=== PATIENT | female | born 1950 | race Caucasian/White ===

== ENCOUNTER → 2017-10-05 08:44 | Outpatient (CLI) | payer MEDICARE, OTHER, SELFPAY ==
[2017-10-05 10:14] LABS: AST(SGOT) 23 U/L (15-37); Alanine Aminotransfer ALT/SGPT 27 U/L (13-56); Albumin, Serum 3.9 g/dL (3.2-5.0); Alkaline Phosphatase 92 U/L (45-117); Bilirubin, Direct 0.17 mg/dL (0.00-0.30); Cholesterol 143 mg/dL (200); Globulin 3.2 g/dL (2.2-4.2); High Density Lipoprotein 54 mg/dL; Protein, Total 7.1 g/dL (6.4-8.2); Triglycerides 122 mg/dL; Very Low Density Lipoprotein 24 mg/dL (5-40)
== END ==
PROVIDERS: Family Provider Family Medicine; PCP Family Medicine; Visit Provider Physician Assistant Medical
DX: E78.5 Hyperlipidemia, unspecified (principal); Z79.899 Other long term (current) drug therapy
CPT/HCPCS: 36415; 80061; 80076

== ENCOUNTER → 2019-09-18 10:21 | Outpatient (CLI) | payer MEDICARE, OTHER, SELFPAY ==
[2019-07-13 14:50] VITALS: BMI 23.9
--- NOTE | 2019-09-18 10:22 | ECHOD_ITS ---
Reason For Study: MVP Procedure This was a 2D Doppler, Color Flow transthoracic echocardiogram. Attempted to do a bubble study, two nurses were unable to place an IV. After five attempts we all agreed no more attempts would be made. Exam performed in department. Left Ventricle Normal LV size. Left ventricular systolic function is normal. The estimated ejection fraction is 65 %. Diastolic function is indeterminate. No regional wall motion abnormalities noted. Right Ventricle Normal RV size. Normal systolic function. Atria Normal left atrium. Normal right atrium. No doppler evidence for ASD. Mitral Valve There is no mitral annular calcification. Mild mitral valve prolapse. Trivial mitral valve insufficiency. Tricuspid Valve Normal tricuspid valve. Mild tricuspid valve insufficiency. Right ventricular systolic pressure estimated to be 18 mmHg. Aortic Valve Trisinus/trileaflet aortic valve. Normal aortic valve. Pulmonic Valve The pulmonic valve is not well visualized. Great Vessels The aortic root is not well visualized. Pericardium/Pleural No pericardial effusion. MMode/2D Measurements & Calculations LVIDd: 3.8 cm IVSd: 0.86 cm LA dimension: 2.6 cm LVIDs: 2.1 cm LVPWd: 1.0 cm RVDd: 3.2 cm FS: 43.8 % LAV(MOD-bp): 28.8 ml LA A4 area: 11.3 cm2 RA A4 area: 11.3 cm2 LAV(MOD-bp) Indexed: 15.3 ml/m2 LAV(MOD-sp2): 31.1 ml LAV(MOD-sp4): 24.4 ml Time Measurements MV dec time: 0.29 sec Doppler Measurements & Calculations MV E max girma: 54.7 cm/sec Lat Peak E' Girma: 4.0 cm/sec Med Peak E' Girma: 4.9 cm/sec MV A max girma: 69.1 cm/sec E/E' lat: 13.7 E/E' med: 11.2 MV E/A: 0.79 MV V2 max: 73.2 cm/sec MV P1/2t max girma: 69.3 cm/sec Ao V2 max: 103.6 cm/sec MV max P.1 mmHg MV P1/2t: 104.8 msec Ao max P.3 mmHg MV V2 mean: 38.8 cm/sec MV dec slope: 193.8 cm/sec2 MV mean P.72 mmHg MVA(P1/2t): 2.1 cm2 MV V2 VTI: 28.3 cm LV V1 max: 88.3 cm/sec PA V2 max: 60.8 cm/sec TR max girma: 195.5 cm/sec LV V1 max P.1 mmHg TR max P.3 mmHg Interpretation Summary Left ventricular systolic function is normal. The estimated ejection fraction is 65 %. Mild mitral valve prolapse. Trivial mitral valve insufficiency. Mild tricuspid valve insufficiency. Right ventricular systolic pressure estimated to be 18 mmHg. Diastolic function is indeterminate. Ordering Physician: Dimitri Da Silva Referring Physician: LUNA COPE Performed By: Jason Mosher RCS
== END ==
PROVIDERS: PCP Family Medicine; Referring Provider Internal Medicine Cardiovascular Disease; Visit Provider Internal Medicine Cardiovascular Disease
DX: I34.1 Nonrheumatic mitral (valve) prolapse (principal)
CPT/HCPCS: 93306; A4216

== ENCOUNTER → 2019-11-27 08:02 | Outpatient (CLI) | payer MEDICARE, OTHER, SELFPAY ==
[2019-07-13 14:50] VITALS: BMI 23.9
[2019-11-27 09:50] LABS: AST(SGOT) 15 U/L (15-37); Alanine Aminotransfer ALT/SGPT 26 U/L (13-56); Albumin, Serum 3.8 g/dL (3.2-5.0); Alkaline Phosphatase 94 U/L (45-117); Bilirubin, Direct 0.17 mg/dL (0.00-0.30); Cholesterol 141 mg/dL (200); Globulin 3.3 g/dL (2.2-4.2); High Density Lipoprotein 48 mg/dL; Protein, Total 7.1 g/dL (6.4-8.2); Triglycerides 178 mg/dL; Very Low Density Lipoprotein 36 mg/dL (5-40)
== END ==
PROVIDERS: PCP Family Medicine; Referring Provider Internal Medicine Cardiovascular Disease; Visit Provider Internal Medicine Cardiovascular Disease
DX: E78.00 Pure hypercholesterolemia, unspecified (principal)
CPT/HCPCS: 36415; 80061; 80076

== ENCOUNTER → 2020-12-06 09:06 | Outpatient (CLI) | payer MEDICARE, OTHER, SELFPAY ==
[2020-12-06 10:07] LABS: AST(SGOT) 23 U/L (15-37); Alanine Aminotransfer ALT/SGPT 30 U/L (13-56); Albumin, Serum 3.7 g/dL (3.2-5.0); Alkaline Phosphatase 103 U/L (45-117); Bilirubin, Direct 0.13 mg/dL (0.00-0.30); Cholesterol 154 mg/dL (200); Globulin 3.6 g/dL (2.2-4.2); High Density Lipoprotein 54 mg/dL; Protein, Total 7.3 g/dL (6.4-8.2); Triglycerides 146 mg/dL; Very Low Density Lipoprotein 29 mg/dL (5-40)
== END ==
PROVIDERS: PCP Family Medicine; Referring Provider Internal Medicine Cardiovascular Disease; Visit Provider Internal Medicine Cardiovascular Disease
DX: E78.00 Pure hypercholesterolemia, unspecified (principal)
CPT/HCPCS: 36415; 80061; 80076

== ENCOUNTER 2020-12-13 14:04 | Emergency (ER) | payer MEDICARE, OTHER, SELFPAY ==
[2020-12-13 14:04] VITALS: BP 136/74; PULSE 80; RESP 16; TEMP 37.2; O2SAT 98; BMI 24.3
[2020-12-13 14:38] LABS: Absolute Lymphocyte Count 2.11 X10^3/uL (0.83-4.51); Absolute Neutrophil Count 7.4 X10^3/uL (2.0-7.7); Basophil# 0.03 X10^3/uL; Basophil% 0.3 % (0-1); Eosinophil# 0.14 X10^3/uL; Eosinophils% 1.3 % (0-5); Hematocrit 43.5 % (37-47); Hemoglobin 14.5 g/dL (12.0-15.0); Lymphocyte # 2.11 X10^3/ul (0.83-4.51); Lymphocyte % 19.9 % (19-41); Mean Corp Hgb Conc 33.3 g/dL (32-36); Mean Corpuscular Hgb 30.2 pg (27.0-32.0); Mean Corpuscular Volume 90.6 fL (81-99); Mean Platelet Vol. 9.4 fl (6.2-12.0); Monocyte# 0.86 X10^3/uL; Monocyte% 8.1 % (0-10); NRBC Flagged by Analyzer 0 % (0-5); Neutrophil # 7.41 X10^3/uL (2.7-7.7); Neutrophil % 70.1 % (47-70); Platelet Count 230 K/mm3 (150-450); RBC Distribution Width CV 12.7 % (11.6-14.6); RBC Distribution Width SD 41.9 fl (35.1-43.9); White Blood Count 10.6 K/mm3 (4.4-11.0)
[2020-12-13 14:43] LABS: Bacteria 0 SEEN /hpf (None Seen); Mucous, Urine 0 SEEN /hpf (<or=2+); Red Blood Cells-Urine 0 SEEN /hpf (0-5); Squamous Epithelial Cells - UA 0 SEEN /hpf (5-10)
[2020-12-13 14:45] LABS: Color, Urine Yellow (Yellow); Glucose, Dipstick Normal (Normal); Ketone-Dipstick Negative (Negative); Leukocyte Esterase-Dipstick 100 /ul (Negative); Nitrite-Dipstick Negative (Negative); Occult Blood-Urine 10 /ul (Negative); Protein-Dipstick Negative (Negative); Urine Bilirubin Dipstick Negative (Negative); Urine Clarity Clear (Clear); Urine Urobilinogen Normal (Normal)
[2020-12-13 14:52] LABS: White Blood Cells 0-5 SEEN /hpf (0-5)
[2020-12-13 14:55] LABS: Anion Gap 5 (5-15); BUN 16 mg/dL (7-18); BUN/Creat Ratio 16.8 RATIO (10-20); Calcium,Total 9.6 mg/dL (8.5-10.1); Chloride 104 mmol/L (98-107); Creatinine, Serum 0.95 mg/dL (0.55-1.02); EST Glomerular Filtration Rate 62 mL/min (>60); Est Glom Filt Rate - Afr Amer 75 mL/min (>60); Estimated Creatinine Clearance 59.23 ml/min; Glucose 95 mg/dL (74-106); Potassium 4.9 mmol/L (3.5-5.1); Sodium Level 137 mmol/L (136-145)
--- NOTE | 2020-12-13 16:12 | CT_ITS ---
HISTORY: Lower abdominal pain EXAMINATION: CT Abdomen And Pelvis W/O Contrast Injection TECHNIQUE: Multiple axial images were obtained of the abdomen and pelvis without oral or IV contrast. A radiation dose optimization technique was used for this scan. IV Contrast dosage and agent: None. Oral contrast: None. COMPARISON: None FINDINGS: LOWER CHEST: Lung bases are clear. No cardiomegaly or pericardial effusion. LIVER: Homogeneous. No focal mass. GALLBLADDER AND BILIARY TREE: No calcified gallstones. No gallbladder distension or wall edema. No intra- or extrahepatic biliary ductal dilation. PANCREAS: No focal cystic or solid mass. SPLEEN: Normal size without focal cystic or solid mass. ADRENAL GLANDS: No nodules. KIDNEYS AND URETERS: Nonobstructing left nephrolith biosis. No hydronephrosis bilaterally. PERITONEUM: No ascites or free air. BOWEL: Normal appendix. No stomach or bowel distension. Colonic diverticulosis os ilium and sigmoid colon with segment of wall thickening and pericolonic stranding in the proximal sigmoid colon. LYMPH NODES: No enlarged mesenteric or retroperitoneal lymph nodes. VESSELS: Aorta is non-dilated. URINARY BLADDER: Unremarkable. REPRODUCTIVE ORGANS: No pelvic masses. Uterus absent. BONES: No acute or aggressive abnormality. CT/Abdomen/Pelvis without Cont IMPRESSION: Acute sigmoid diverticulitis. No evidence of perforation or pelvic abscess. Individualized dose optimization techniques were used for this CT. at 1649 Reported and signed by: Collins Vidales MD Electronically Signed: Collins Vidales MD at 16:48 EDT Tel , Service support ,
--- NOTE | 2020-12-13 17:12 | EDS_ITS ---
HPI HPI - GI History of Present Illness Chief Complaint: Abd Pain Narrative Narrative: Patient presenting for evaluation secondary to abdominal pain and concern for diverticulitis. Patient states that she has had this around 5 times in the past, states that her last bout was around 2 years ago. Patient states that since Saturday she has had some left lower quadrant abdominal pain and feelings of some constipation. Patient denies any fevers. She does have some nausea but no vomiting. Pain is worse with palpation. Patient denies any blood in her stool or mucousy stools. Review of systems otherwise negative. [facility] Medical History (Updated 12/13/20 @ 17:[address] Angelo Rivero MD) Chest pain, precordial Chest pain, unspecified Diverticulitis Essential hypertension Hyperlipidemia Hypertension Non-rheumatic tricuspid valve insufficiency Nonrheumatic mitral (valve) prolapse Nonrheumatic mitral valve prolapse Palpitations Pure hypercholesterolemia Home Medications calcium citrate malate-vitamin D3 500 mg-200 unit tablet 1 tab PO DAILY tab 07/02/18 [History Last Taken Unknown] acetaminophen 500 mg capsule 500 mg PO Q6H PRN 07/13/19 [History Last Taken Unknown] aspirin 81 mg tablet,delayed release 81 mg PO DAILY 07/13/19 [History Last Taken Unknown] auwxsaqbez-gilgkflltnrzm-yfrqoviz 50 mg-300 mg-40 mg capsule 1 cap PO Q6H PRN 07/13/19 [History Last Taken Unknown] multivitamin 1 tab PO DAILY tab 07/13/19 [History Last Taken Unknown] zinc 50 mg tablet 50 mg PO DAILY 07/13/19 [History Last Taken Unknown] atorvastatin 10 mg tablet 10 mg PO QHS #90 tab 04/15/20 [Rx Last Taken Unknown] metoprolol succinate 50 mg tablet,extended release 24 hr 50 mg PO DAILY #90 tab 04/15/20 [Rx Last Taken Unknown] ramipril 5 mg capsule 5 mg PO DAILY #90 cap 04/15/20 [Rx Last Taken Unknown] amoxicillin-pot clavulanate [Augmentin] 1 tab PO TID #30 tab 12/13/20 [Rx Last Taken Unknown] Allergy/AdvReac Type Severity Reaction Status Date / Time adhesive tape Allergy Rash Verified 12/13/20 14:06 Tetracyclines Allergy Rash Verified 12/13/20 14:06 Family History Father CAD (coronary artery disease) HX CABG Afib HX ablation x2 Hypertension Diabetes Sister Myocardial infarction Surgical History History of hysterectomy History of tonsillectomy (~1957) HX: benign breast biopsy Social History Smoking Status: Never smoker alcohol intake: never substance use type: does not use caffeine: Yes Type: carbonated beverages what type of physical activity do you participate in: walking frequency: daily duration: < 15 minutes/day seatbelt use: always do you feel safe at home: Yes ROS ROS ED Constitutional Constitutional ED: Denies chills or fever(s) ENT ENT ED: Denies sore throat Cardiovascular Cardiovascular: Denies chest pain Respiratory/Chest Respiratory/Chest: Denies cough or dyspnea Gastrointestinal Gastrointestinal: Reports abdominal pain and nausea Genitourinary Genitourinary ED: Denies dysuria, hematuria or urinary frequency Musculoskeletal Musculoskeletal: Denies myalgias Integumentary Denies rash Neurologic Neurologic: Denies paresthesias or weakness Psychiatric Psychiatric: Denies depression Endocrine Endocrinology: Denies polyuria Hematologic/Lymphatic Hematologic/Lymphatic: Denies easy bleeding or easy bruising Allergic/Immunologic Allergic/Immunologic ED: Denies urticaria EXAM Physical Exam Const Vital Signs: 12/13/20 14:04 Temperature 98.9 F Temperature Source Temporal Pulse Rate 80 Respiratory Rate 16 Blood Pressure 136/74 H Blood Pressure Mean 94 Pulse Ox 98 Oxygen Delivery Method Room Air Positive well nourished and well developed General Appearance ED: well developed and NAD HEENT normocephalic and atraumatic Eyes EOMs intact bilaterally General Eye ED: Negative for pale conjunctiva or scleral icterus Neck no lymphadenopathy and supple Resp normal respiratory effort and clear to auscultation bilaterally Cardio regular rate, regular rhythm, no murmurs and peripheral pulses 2+ throughout GI non-distended and no masses Palpation: soft and tender LLQ; Negative for guarding, rigid or rebound tenderness present Back/Spine no CVA tenderness Extremity full ROM General Extremety ED: Negative for edema General Extremity: Negative for edema Neuro moves all extremities and no sensory deficits noted Sensorium / Orientation: alert, oriented to person, oriented to place and oriented to time Motor Exam: strength 5/5 throughout Psych mental status grossly normal Skin Rashes: no rashes MDM MDM MDM Narrative Medical decision making narrative: Patient presented secondary to abdominal pain concerning for diverticulitis. IV was established laboratory studies were obtained. CBC demonstrates no leukocytosis but a slight neutrophilic predominance chemistry was unremarkable urinalysis was found to be negative. CT imaging of the abdomen and pelvis was found to show acute sigmoid diverticulitis without perforation or abscess. Patient at this point I believe is stable and appropriate for outpatient management. She will be placed on a course of Augmentin. As the patient has had 6 bouts of this I will give her a referral to general surgery to be evaluated for a possible sigmoidectomy at a later time. Patient understands signs and symptoms which to return. She was discharged in stable condition. Lab Data Labs: Laboratory Results - last 24 hr 12/13/20 12/13/20 12/13/20 14:30 14:30 14:30 WBC 10.6 RBC 4.80 Hgb 14.5 Hct 43.5 MCV 90.6 MCH 30.2 MCHC 33.3 RDW Std Deviation 41.9 RDW Coeff of Hipolito 12.7 Plt Count 230 MPV 9.4 Immature Gran % (Auto) 0.300 Neut % (Auto) 70.1 H Lymph % (Auto) 19.9 [place] % (Auto) 8.1 Eos % (Auto) 1.3 Baso % (Auto) 0.3 Absolute Neuts (auto) 7.4 Absolute Lymphs (auto) 2.11 Nucleated RBC % 0 Sodium 137 Potassium 4.9 Chloride 104 Carbon Dioxide 28.0 Anion Gap 5 BUN 16 Creatinine 0.95 Estim Creat Clear Calc 59.23 Est GFR (MDRD) Af Amer 75 Est GFR (MDRD) Non-Af 62 BUN/Creatinine Ratio 16.8 Glucose 95 Calcium 9.6 Urine Color Yellow Urine Clarity Clear Urine pH 5.0 Ur Specific [place] 1.020 Urine Protein Negative Urine Glucose (UA) Normal Urine Ketones Negative Urine Occult Blood 10 H Urine Nitrite Negative Urine Bilirubin Negative Urine Urobilinogen Normal Ur Leukocyte Esterase 100 H Urine RBC 0 SEEN Urine WBC 0-5 SEEN Ur Squamous Epith Cells 0 SEEN Urine Bacteria 0 SEEN Urine Mucus 0 SEEN Radiography Diagnostic Testing: Radiology Impression Abdomen/Pelvis CT 12/13/20 16:12 IMPRESSION: Acute sigmoid diverticulitis. No evidence of perforation or pelvic abscess. Individualized dose optimization techniques were used for this CT. at 1649 Reported and signed by: Collins Vidales MD Electronically Signed: Collins Vidales MD at 16:48 EDT Tel , Service support , Discharge Plan Triage Chief Complaint: Abd Pain ED Provider: Angelo Rivero Dx/Rx/DC Orders Clinical Impression: Acute diverticulitis Instructions: ED Diverticulitis Prescriptions: New amoxicillin-pot clavulanate [Augmentin] 875-125 mg tablet 1 tab PO TID Qty: 30 RF: 0 No Action calcium citrate malate-vitamin D3 500 mg-200 unit tablet 500-200 mg-unit ta blet 1 tab PO DAILY RF: 0 aspirin [Adult Low Dose Aspirin] 81 mg tablet,delayed release (DR/EC) 81 mg PO DAILY RF: 0 zinc [Chelated Zinc] 50 mg tablet 50 mg PO DAILY RF: 0 saeufrzrjs-ssjebiquuoohm-zbxc 50-300-40 mg capsule 1 cap PO Q6H PRNRF: 0 acetaminophen 500 mg capsule 500 mg PO Q6H PRNRF: 0 multivitamin Tablet 1 tab PO DAILY RF: 0 atorvastatin 10 mg tablet 10 mg PO QHS Qty: 90 RF: 3 metoprolol succinate 50 mg tablet extended release 24 hr 50 mg PO DAILY Qty: 90 RF: 3 ramipril 5 mg capsule 5 mg PO DAILY Qty: 90 RF: 3 Primary Care Provider: Willie Marques Referrals: Willie Marques MD [Primary Care Provider] -
== END 2020-12-13 17:39 | disposition home or self-care (01) ==
PROVIDERS: Emergency Provider Emergency Medicine; PCP Family Medicine
DX: K57.32 Diverticulitis of large intestine without perforation or abscess without bleeding (principal); E78.00 Pure hypercholesterolemia, unspecified; E78.5 Hyperlipidemia, unspecified; I10 Essential (primary) hypertension; I34.1 Nonrheumatic mitral (valve) prolapse; Z79.82 Long term (current) use of aspirin
CPT/HCPCS: 74176; 80048; 81001; 85025; 99283; A4216

== ENCOUNTER 2020-12-18 01:18 | Inpatient (IN) | payer MEDICARE, OTHER, SELFPAY ==
[2020-12-18] VITALS (8 sets, daily range): BP systolic 105–139; BP diastolic 60–77; PULSE 69–81; RESP 15–18; TEMP 36.3–36.9; O2SAT 95–100; BMI 23.4; BMI 23.8
--- NOTE | 2020-12-18 01:24 | EDS_ITS ---
HPI HPI - GI History of Present Illness Chief Complaint: Abd Pain Informant: patient Abdominal Pain/Flank Pain Onset: Today Context: Sudden Onset Timing: Continuous Quality: Cramping Location: LLQ Worsened by: Nothing Relieved by: Nothing Nausea/Vomiting/Emesis GI Symptom: Positive for Nausea; Negative for Vomiting Diarrhea/Melena/Hematochezia GI Symptom: Negative for Diarrhea, Melena and Hematochezia Associated Symptoms Associated Symptoms: Negative for Dysuria, Frequency and Hematuria Narrative Narrative: Patient presents with abdominal pain that became worse tonight. Patient states she was seen here recently and diagnosed with diverticulitis. Patient states she has been taking her antibiotics which have been helping. Patient states that tonight she rolled over in bed and felt sharp pain in her left lower quadrant. Patient describes her pain as cramping. Patient admits to nausea but denies any vomiting. Patient states nothing makes her pain better and nothing makes it worse. Patient denies any diarrhea, melena, or hematochezia. Patient denies any urinary complaints. [facility] Medical History Chest pain, precordial Chest pain, unspecified Diverticulitis Essential hypertension Hyperlipidemia Hypertension Non-rheumatic tricuspid valve insufficiency Nonrheumatic mitral (valve) prolapse Nonrheumatic mitral valve prolapse Palpitations Pure hypercholesterolemia Home Medications calcium citrate malate-vitamin D3 500 mg-200 unit tablet 1 tab PO DAILY tab 07/02/18 [History Last Taken Unknown] acetaminophen 500 mg capsule 500 mg PO Q6H PRN 07/13/19 [History Last Taken Unknown] aspirin 81 mg tablet,delayed release 81 mg PO DAILY 07/13/19 [History Last Taken Unknown] cgamnqzeql-szzeovbfvuukl-jzywytej 50 mg-300 mg-40 mg capsule 1 cap PO Q6H PRN 07/13/19 [History Last Taken Unknown] multivitamin 1 tab PO DAILY tab 07/13/19 [History Last Taken Unknown] zinc 50 mg tablet 50 mg PO DAILY 07/13/19 [History Last Taken Unknown] atorvastatin 10 mg tablet 10 mg PO QHS #90 tab 04/15/20 [Rx Last Taken Unknown] metoprolol succinate 50 mg tablet,extended release 24 hr 50 mg PO DAILY #90 tab 04/15/20 [Rx Last Taken Unknown] ramipril 5 mg capsule 5 mg PO DAILY #90 cap 04/15/20 [Rx Last Taken Unknown] amoxicillin-pot clavulanate [Augmentin] 1 tab PO TID #30 tab 12/13/20 [Rx Last Taken Unknown] Allergy/AdvReac Type Severity Reaction Status Date / Time adhesive tape Allergy Rash Verified 12/13/20 14:06 Tetracyclines Allergy Rash Verified 12/13/20 14:06 Family History Father CAD (coronary artery disease) HX CABG Afib HX ablation x2 Hypertension Diabetes Sister Myocardial infarction Surgical History History of hysterectomy History of tonsillectomy (~9) HX: benign breast biopsy Social History Smoking Status: Never smoker alcohol intake: never substance use type: does not use caffeine: Yes Type: carbonated beverages what type of physical activity do you participate in: walking frequency: daily duration: < 15 minutes/day seatbelt use: always do you feel safe at home: Yes ROS ROS ED Constitutional Constitutional ED: Denies chills or fever(s) Eyes Eyes: Denies blurry vision or change in vision ENT ENT ED: Denies rhinorrhea or sore throat Cardiovascular Cardiovascular: Denies chest pain or palpitations Respiratory/Chest Respiratory/Chest: Denies cough or dyspnea Gastrointestinal Gastrointestinal: Reports abdominal pain and nausea; Denies vomiting Genitourinary Genitourinary ED: Denies dysuria or hematuria Musculoskeletal Musculoskeletal: Denies back pain or neck pain Integumentary Denies abscess or rash Neurologic Neurologic: Reports headache(s); Denies weakness Allergic/Immunologic Allergic/Immunologic ED: Denies mouth swelling or urticaria EXAM Physical Exam Const Vital Signs: 12/18/20 01:18 12/18/20 05:59 Temperature 97.3 F L Temperature Source Temporal Pulse Rate 81 73 Respiratory Rate 15 18 Blood Pressure 139/77 H 105/67 Blood Pressure Mean 97 79 Pulse Ox 97 96 Oxygen Delivery Method Room Air Room Air Positive well nourished and well developed General Appearance ED: well developed HEENT Reports moist mucous membranes Neck supple and no JVD Resp normal respiratory effort and clear to auscultation bilaterally Cardio regular rate and regular rhythm GI non-distended Palpation: soft and tender LLQ and suprapubic; Negative for guarding or rebound tenderness present Extremity full ROM General Extremety ED: Negative for edema or tenderness General Extremity: Negative for edema Neuro CN's II-XII intact bilaterally, moves all extremities and no sensory deficits noted Sensorium / Orientation: alert, oriented to person, oriented to place and oriented to time Motor Exam: strength 5/5 throughout Psych mental status grossly normal MDM MDM MDM Narrative Medical decision making narrative: Patient was given IV fluids, morphine, and Zofran. CBC and comprehensive metabolic profile were within normal limits. CT scan of the abdomen pelvis was obtained. There is worsening the sigmoid diverticulitis. There is new microperforation of an inflamed diverticulum with extraluminal fluid and air. This was interpreted by the radiologist and reviewed by myself. Patient was given a dose of Zosyn here. Patient is feeling better on reevaluation. Case was discussed with Dr. Fletcher from general surgery. He will consult on the patient who recommended admitting to the hospitalist. He does not feel this is a surgical emergency at this time. Case was discussed with the hospitalist. He will admit the patient to his service. Patient understands and is agreeable with the plan. All questions were answered. Lab Data Attestation: I reviewed the patient's lab results. Labs: Laboratory Results - last 24 hr 12/18/20 12/18/20 02:36 02:36 WBC 10.4 RBC 4.95 Hgb 14.8 Hct 44.5 MCV 89.9 MCH 29.9 MCHC 33.3 RDW Std Deviation 41.0 RDW Coeff of [place] 12.5 Plt Count 279 MPV 9.0 Immature Gran % (Auto) 0.400 Neut % (Auto) 82.1 H Lymph % (Auto) 8.9 [place] % (Auto) 7.9 Eos % (Auto) 0.5 Baso % (Auto) 0.2 Absolute Neuts (auto) 8.5 H Absolute Lymphs (auto) 0.92 Nucleated RBC % 0 Sodium 136 Potassium 3.6 Chloride 102 Carbon Dioxide 28.0 Anion Gap 6 BUN 11 Creatinine 0.84 Estim Creat Clear Calc 66.99 Est GFR (MDRD) Af Amer 86 Est GFR (MDRD) Non-Af 71 BUN/Creatinine Ratio 13.1 Glucose 115 H Calcium 9.3 Total Bilirubin 0.70 AST 21 ALT 30 Alkaline Phosphatase 95 Total Protein 7.6 Albumin 3.3 Globulin 4.3 H Albumin/Globulin Ratio 0.8 L Radiography Diagnostic Testing: Radiology Impression Abdomen/Pelvis CT 12/18/20 02:12 IMPRESSION: Interval worsening of sigmoid colon diverticulitis. Evidence of interval micro-perforation of an inflamed diverticulum, with a resulting 3 cm in greatest dimension extraluminal collection of fluid and air. The wall of this collection is not well delineated and this may not yet be a formed, drainable abscess. Electronically Signed: Ranjit Conway MD at 4:47 EDT Tel , Service support , ADDENDUM: 12/18/20 0456 IMPRESSION: Interval worsening of sigmoid colon diverticulitis. Evidence of interval micro-perforation of an inflamed diverticulum, with a resulting 3 cm in greatest dimension extraluminal collection of fluid and air. The wall of this collection is not well delineated and this may not yet be a formed, drainable abscess. N.B. : Crystal Crowell/ALMA DELIA quintana OT, confirmed on 12/18/2020 04:49:21 (ET) that the healthcare facility has received the radiology report. Electronically Signed: Ranjit Conway MD at 4:47 EDT Tel , Service support , Treatment and Re-Evaluation Vital Sign Attestation:: Vital signs were reviewed prior to admission. They are stable. Discharge Plan Dx/Rx/DC Orders Clinical Impression: Diverticulitis of colon with perforation Disposition Disposition: Acute Care Hospital [facility] Discharge Date/Time: 12/18/20 06:56
--- NOTE | 2020-12-18 02:12 | CT_ITS ---
STUDY: CT ABDOMEN AND PELVIS WITH CONTRAST REASON FOR EXAM: Female, 70 years old. LLQ pain. TECHNIQUE: Transaxial images were obtained from the dome of the diaphragm to the symphysis pubis with oral contrast. 100mL Isovue-300 IV contrast was administered. Sagittal and coronal images were reconstructed. Individualized dose optimization techniques were used for this CT. COMPARISON: 12/13/2020 CT abdomen pelvis. FINDINGS: Partially visualized lower chest: Lung bases unremarkable. Liver: No concerning lesions. Gallbladder and biliary tree: No visible gallstones. No pericholecystic inflammation. No biliary ductal dilation. Pancreas: No pancreatic lesions or inflammation. Spleen: Normal size, no splenic lesions. Adrenal glands: No concerning masses. Kidneys and ureters: No hydronephrosis or renal stones. No concerning masses. No ureteral dilation. Small cyst upper pole right kidney. Bowel: Normal appendix. Sigmoid colon diverticulitis has worsened. Interval development of a 2 x 3 cm cm extraluminal collection of fluid and air along the upper, medial aspect of the inflamed sigmoid colon diverticula, series 2 image 90 and coronal image 58. Adjacent sigmoid colonic wall thickening and inflammation have also increased. No bowel obstruction. The remainder of the bowel is unremarkable. Urinary bladder: Mild wall thickening of the left posterior urinary bladder adjacent to the diverticulitis. No air in the urinary bladder wall or lumen. No stones. Reproductive: Post hysterectomy. Vaginal cuff unremarkable. Neither ovary identified. Vascular: No mesenteric or portal venous gas. Retroperitoneal and peritoneal spaces: No free air. Trace free fluid in the pelvis. Osseous: No acute osseous abnormality. Degenerative changes lumbar spine with grade 1 degenerative anterolisthesis of L4 and L5 similar to previous. Abdominal and pelvic wall: No concerning findings. Any findings described in the findings sections and not included in the impression are incidental and do not require imaging follow-up. CT/Abdomen/Pelvis WITH Contrast IMPRESSION: Interval worsening of sigmoid colon diverticulitis. Evidence of interval micro-perforation of an inflamed diverticulum, with a resulting 3 cm in greatest dimension extraluminal collection of fluid and air. The wall of this collection is not well delineated and this may not yet be a formed, drainable abscess. Electronically Signed: Ranjit Conway MD at 4:47 EDT Tel , Service support ,
[2020-12-18] MEDS: 0.9% Normal Saline 1,000 ML 1000 ML IV (02:34)
[2020-12-18] MEDS: Ondansetron 4 MG/2 ML Vial IV ×2 (02:34→11:17)
[2020-12-18] MEDS: Morphine 4 MG/ML Syringe IV (02:35)
[2020-12-18 02:43] LABS: Absolute Lymphocyte Count 0.92 X10^3/uL (0.83-4.51); Absolute Neutrophil Count 8.5 X10^3/uL (2.0-7.7); Basophil# 0.02 X10^3/uL; Basophil% 0.2 % (0-1); Eosinophil# 0.05 X10^3/uL; Eosinophils% 0.5 % (0-5); Hematocrit 44.5 % (37-47); Hemoglobin 14.8 g/dL (12.0-15.0); Lymphocyte # 0.92 X10^3/ul (0.83-4.51); Lymphocyte % 8.9 % (19-41); Mean Corp Hgb Conc 33.3 g/dL (32-36); Mean Corpuscular Hgb 29.9 pg (27.0-32.0); Mean Corpuscular Volume 89.9 fL (81-99); Monocyte# 0.82 X10^3/uL; Monocyte% 7.9 % (0-10); NRBC Flagged by Analyzer 0 % (0-5); Neutrophil # 8.53 X10^3/uL (2.7-7.7); Neutrophil % 82.1 % (47-70); Platelet Count 279 K/mm3 (150-450); RBC Distribution Width CV 12.5 % (11.6-14.6); Red Blood Count 4.95 M/mm3 (4.2-5.4); White Blood Count 10.4 K/mm3 (4.4-11.0)
[2020-12-18 03:10] LABS: ALB/GLOB Ratio 0.8 RATIO (0.9-2.4); AST(SGOT) 21 U/L (15-37); Alanine Aminotransfer ALT/SGPT 30 U/L (13-56); Albumin, Serum 3.3 g/dL (3.2-5.0); Alkaline Phosphatase 95 U/L (45-117); Anion Gap 6 (5-15); BUN 11 mg/dL (7-18); BUN/Creat Ratio 13.1 RATIO (10-20); Calcium,Total 9.3 mg/dL (8.5-10.1); Chloride 102 mmol/L (98-107); Creatinine, Serum 0.84 mg/dL (0.55-1.02); EST Glomerular Filtration Rate 71 mL/min (>60); Est Glom Filt Rate - Afr Amer 86 mL/min (>60); Estimated Creatinine Clearance 66.99 ml/min; Globulin 4.3 g/dL (2.2-4.2); Glucose 115 mg/dL (74-106); Potassium 3.6 mmol/L (3.5-5.1); Protein, Total 7.6 g/dL (6.4-8.2); Sodium Level 136 mmol/L (136-145)
--- NOTE | 2020-12-18 06:32 | PCM.HP.STD ---
[facility] - General General Date of Admission: 12/18/20 HPI Narrative JUAN PABLO WITT, is a 70 F with a significant history of mitral valve prolapse; hypertension; hyperlipidemia; and multiple bouts of diverticulitis presenting to the emergency department with excruciating left lower quadrant cramping pain that started about 6 days before presentation. Patient was at hospital on 12/13/2020. She was diagnosed with acute diverticulitis and sent home on Augmentin. Her symptoms improve but on the night of this current presentation patient rolled in bed and then developed excruciating left lower quadrant pain. She woke up her who brought her to the emergency department. She denies evie nausea or vomiting. However she reports some abdominal upset. Hip pain is intermittent. She rates the pain as a range of 3-8 at different times. The pain improves or worsens with body positioning. Last time her bowels moved was on 12/14/2020. Emergency department doctor discussed the case with general surgeon who evaluated the patient at the emergency department. [facility] Medical History Chest pain, precordial Chest pain, unspecified Diverticulitis Essential hypertension Hyperlipidemia Hypertension Non-rheumatic tricuspid valve insufficiency Nonrheumatic mitral (valve) prolapse Nonrheumatic mitral valve prolapse Palpitations Pure hypercholesterolemia Home Medications calcium citrate malate-vitamin D3 500 mg-200 unit tablet 1 tab PO DAILY tab 07/02/18 [History Last Taken Unknown] acetaminophen 500 mg capsule 500 mg PO Q6H PRN 07/13/19 [History Last Taken Unknown] aspirin 81 mg tablet,delayed release 81 mg PO DAILY 07/13/19 [History Last Taken Unknown] zorvxnbovq-zvdxbucbwxhxn-edinkksq 50 mg-300 mg-40 mg capsule 1 cap PO Q6H PRN 07/13/19 [History Last Taken Unknown] multivitamin 1 tab PO DAILY tab 07/13/19 [History Last Taken Unknown] zinc 50 mg tablet 50 mg PO DAILY 07/13/19 [History Last Taken Unknown] atorvastatin 10 mg tablet 10 mg PO QHS #90 tab 04/15/20 [Rx Last Taken Unknown] metoprolol succinate 50 mg tablet,extended release 24 hr 50 mg PO DAILY #90 tab 04/15/20 [Rx Last Taken Unknown] ramipril 5 mg capsule 5 mg PO DAILY #90 cap 04/15/20 [Rx Last Taken Unknown] amoxicillin-pot clavulanate [Augmentin] 1 tab PO TID #30 tab 12/13/20 [Rx Last Taken Unknown] Allergy/AdvReac Type Severity Reaction Status Date / Time adhesive tape Allergy Rash Verified 12/13/20 14:06 Tetracyclines Allergy Rash Verified 12/13/20 14:06 Family History Father CAD (coronary artery disease) HX CABG Afib HX ablation x2 Hypertension Diabetes Sister Myocardial infarction Surgical History History of hysterectomy History of tonsillectomy (~1957) HX: benign breast biopsy Social History Smoking Status: Never smoker alcohol intake: never substance use type: does not use caffeine: Yes Type: carbonated beverages what type of physical activity do you participate in: walking frequency: daily duration: < 15 minutes/day seatbelt use: always do you feel safe at home: Yes ROS ROS Narrative Constitutional: Denies fever, chills, fatigue, anorexia and change in weight Eyes: Denies blurry vision, change in eye color, change in vision, discharge from eye(s), double vision, erythema, eye pain, loss of vision or other HEENT: Denies abnormal hearing, dysphagia, ear pain, epistaxis, headache(s), hearing loss, nasal congestion, nasal discharge, post nasal drip, sinus pressure, sore throat or other Cardiovascular: Denies chest pain or palpitations. Denies dyspnea on exertion, orthopnea and paroxysmal nocturnal dyspnea Respiratory/Chest: Denies cough, excessive phlegm production, shortness of breath with exertion and wheezing Gastrointestinal: Reports abdominal pain and constipation. Denies hematemesis, hematochezia, loose stools, melena, or other Genitourinary: Denies burning urination, difficulty urinating, dysuria, hematuria, nocturia, urinary frequency, urinary hesitancy, urinary incontinence, urinary urgency or other Musculoskeletal: Denies arthralgias, back pain, joint pain, joint stiffness, joint swelling, myalgias, neck pain or other Neurologic: Denies abnormal gait, abnormal speech, confusion, disequilibrium, dizziness, focal weakness, headache(s), numbness, paresthesias, seizure-like activity, seizures, syncope, tingling, tremor(s) or other Psychiatric: Denies anxiety, depression, homicidal ideation, suicidal ideation or other Endocrinology: Denies change in body appearance, cold intolerance, excessive sweating, heat intolerance, polydipsia, polyuria or other Hematologic/Lymphatic: Denies anemia, easy bleeding, easy bruising, lymphadenopathy or other Integumentary: Denies rashes Allergic/Immunologic: Denies rhinitis, hives, eczema, asthma or other Vital Signs Vital Signs Vital Signs: 12/18/20 01:18 12/18/20 05:59 12/18/20 06:27 Temperature 97.3 F L 97.3 F L Temperature Source Temporal Temporal Pulse Rate 81 73 73 Respiratory Rate 15 18 18 Blood Pressure 139/77 H 105/67 105/67 Blood Pressure Mean 97 79 79 Pulse Ox 97 96 96 Oxygen Delivery Method Room Air Room Air Room Air Weight Weight: 72.03 kg Body Mass Index (BMI) 23.4 Physical Exam Narrative Physical exam: General: Well-nourished, well-developed. Head: Normocephalic, atraumatic, no tenderness Eyes: PERRLA, EOMI ENT, no trauma, moist mucous membranes, no rhinorrhea Neck: Nontender, full range of motion, no spinal tenderness, deformities, step-off CVS: Regular rate and rhythm. S1-S2 present. No murmur, gallop or rub. Respiratory : clear to auscultation bilaterally, chest wall nontender, no wheezing Abdomen: Soft, nontender, nondistended, normal bowel sounds, no masses : Deferred Back: Nontender, no CVA tenderness, no midline spinal tenderness, deformities, step-offs Extremities: Nontender full range of motion, no trauma Skin: Normal color, no trauma, abrasions Neuro: Alert, oriented, cranial nerves II through XII grossly intact. Psychiatry: Normal mood. Normal affect. Not depressed. Not anxious. Results Lab / Micro Data Result Diagrams: 12/18/20 02:36 12/18/20 02:36 Labs: Laboratory Results - last 24 hr 12/18/20 02:36: WBC 10.4, RBC 4.95, Hgb 14.8, Hct 44.5, MCV 89.9, MCH 29.9, MCHC 33.3, RDW Std Deviation 41.0, RDW Coeff of Hipolito 12.5, Plt Count 279, MPV 9.0, Immature Gran % (Auto) 0.400, Neut % (Auto) 82.1 H, Lymph % (Auto) 8.9 L, [place] % (Auto) 7.9, Eos % (Auto) 0.5, Baso % (Auto) 0.2, Absolute Neuts (auto) 8.5 H, Absolute Lymphs (auto) 0.92, Nucleated RBC % 0 12/18/20 02:36: Sodium 136, Potassium 3.6, Chloride 102, Carbon Dioxide 28.0, Anion Gap 6, BUN 11, Creatinine 0.84, Estim Creat Clear Calc 66.99, Est GFR (MDRD) Af Amer 86, Est GFR (MDRD) Non-Af 71, BUN/Creatinine Ratio 13.1, Glucose 115 H, Calcium 9.3, Total Bilirubin 0.70, AST 21, ALT 30, Alkaline Phosphatase 95, Total Protein 7.6, Albumin 3.3, Globulin 4.3 H, Albumin/Globulin Ratio 0.8 L Radiology Impression Abdomen/Pelvis CT 12/18/20 02:12 IMPRESSION: Interval worsening of sigmoid colon diverticulitis. Evidence of interval micro-perforation of an inflamed diverticulum, with a resulting 3 cm in greatest dimension extraluminal collection of fluid and air. The wall of this collection is not well delineated and this may not yet be a formed, drainable abscess. Electronically Signed: Ranjit Conway MD at 4:47 EDT Tel , Service support , ADDENDUM: 12/18/20 2713 IMPRESSION: Interval worsening of sigmoid colon diverticulitis. Evidence of interval micro-perforation of an inflamed diverticulum, with a resulting 3 cm in greatest dimension extraluminal collection of fluid and air. The wall of this collection is not well delineated and this may not yet be a formed, drainable abscess. N.B. : Crystal Crowell/ALMA DELIA quintana OT, confirmed on 12/18/2020 04:49:21 (ET) that the healthcare facility has received the radiology report. Electronically Signed: Ranjit Conway MD at 4:47 EDT Tel , Service support , Assessment & Plan Assessment/Plan (1) Acute diverticulitis: (2) Diverticulitis of colon with perforation: PLAN: Acute diverticulitis with microperforation Abdomen/pelvis CT (12/18/2020) was independently Interpreted and I agree with radiologist interpretation. Abdomen pelvis CT on 12/13/2020 was also reviewed. [facility] emergency department. Ciprofloxacin and Flagyl ordered. We will keep n.p.o. Gentle IV hydration. Trend CBC and BMP. CBC was reviewed. CBC showed normal white count with neutrophilia and lymphopenia. BMP was unremarkable. General surgery consult Hypertension Blood pressure is within goal. Metoprolol held secondary to n.p.o. status. As needed hydralazine ordered. Trend blood pressure and adjust blood pressure medications. DVT prophylaxis: SCD ordered.
--- NOTE | 2020-12-18 06:50 | NURSING ---
212 agepong diverticulitis
--- NOTE | 2020-12-18 07:33 | CON.PCM.SX_ITS ---
Assessment & Plan Assessment/Plan (1) Acute diverticulitis: (2) Diverticulitis of colon with perforation: PLAN: At the present time the patient is remarkably pain-free. There has been an interval worsening of her CAT scan. Hopefully with IV antibiotics and bowel rest we will see continued improvement. Hopefully we will be able to get her scheduled for an elective sigmoid resection if she responds well to her IV antibiotics. If not this will not be an easy surgery given the overall length of sigmoid colon that is involved here. Agree with the change in IV antibiotics. We will follow along. HPI Consult Data Date of Consult: 12/18/20 HPI Narrative HPI Narrative: JUAN PABLO WITT, is a 70 F who presents with a significant history of mitral valve prolapse; hypertension; hyperlipidemia; and multiple bouts of diverticulitis presenting to the emergency department with excruciating left lower quadrant cramping pain that started about 6 days before presentation. Patient was at hospital on 12/13/2020. She was diagnosed with acute diverticulitis and sent home on Augmentin. Her symptoms improve but on the night of this current presentation patient rolled in bed and then developed excruciating left lower quadrant pain. She woke up her who brought her to the emergency department. She denies evie nausea or vomiting. However she reports some abdominal upset. Hip pain is intermittent. She rates the pain as a range of 3-8 at different times. The pain improves or worsens with body positioning. Last time her bowels moved was on 12/14/2020. A CAT scan of her abdomen and pelvis was obtained which showed:Interval worsening of sigmoid colon diverticulitis. Evidence of interval micro-perforation of an inflamed diverticulum, with a resulting 3 cm in greatest dimension extraluminal collection of fluid and air. The wall of this collection is not well delineated and this may not yet be a formed, drainable abscess. At the present time the patient is not complaining of any abdominal pain. Patient does have a history of uterine cancer and has undergone a total abdominal hysterectomy and bilateral salpingo-oophorectomy up at the main campus at [facility]. [facility] Medical History Chest pain, precordial Chest pain, unspecified Diverticulitis Essential hypertension Hyperlipidemia Hypertension Non-rheumatic tricuspid valve insufficiency Nonrheumatic mitral (valve) prolapse Nonrheumatic mitral valve prolapse Palpitations Pure hypercholesterolemia Home Medications calcium citrate malate-vitamin D3 500 mg-200 unit tablet 1 tab PO DAILY tab 07/02/18 [History Last Taken Unknown] acetaminophen 500 mg capsule 500 mg PO Q6H PRN 07/13/19 [History Last Taken Unk nown] aspirin 81 mg tablet,delayed release 81 mg PO DAILY 07/13/19 [History Last Taken Unknown] oszsagmtaq-yltzsnfhtvlbl-payizvxs 50 mg-300 mg-40 mg capsule 1 cap PO Q6H PRN 07/13/19 [History Last Taken Unknown] multivitamin 1 tab PO DAILY tab 07/13/19 [History Last Taken Unknown] zinc 50 mg tablet 50 mg PO DAILY 07/13/19 [History Last Taken Unknown] atorvastatin 10 mg tablet 10 mg PO QHS #90 tab 04/15/20 [Rx Last Taken Unknown] metoprolol succinate 50 mg tablet,extended release 24 hr 50 mg PO DAILY #90 tab 04/15/20 [Rx Last Taken Unknown] ramipril 5 mg capsule 5 mg PO DAILY #90 cap 04/15/20 [Rx Last Taken Unknown] amoxicillin-pot clavulanate [Augmentin] 1 tab PO TID #30 tab 12/13/20 [Rx Last Taken Unknown] Allergy/AdvReac Type Severity Reaction Status Date / Time adhesive tape Allergy Rash Verified 12/13/20 14:06 Tetracyclines Allergy Rash Verified 12/13/20 14:06 Family History Father CAD (coronary artery disease) HX CABG Afib HX ablation x2 Hypertension Diabetes Sister Myocardial infarction Surgical History History of hysterectomy History of tonsillectomy (~1957) HX: benign breast biopsy Social History Smoking Status: Never smoker alcohol intake: never substance use type: does not use caffeine: Yes Type: carbonated beverages what type of physical activity do you participate in: walking frequency: daily duration: < 15 minutes/day seatbelt use: always do you feel safe at home: Yes ROS Constitutional Constitutional: Denies chills, fatigue or fever(s) Cardiovascular Cardiovascular: Denies chest pain, chest pain at rest or dyspnea Respiratory/Chest Respiratory/Chest: Denies cough or dyspnea Gastrointestinal Gastrointestinal: Reports abdominal pain and constipation; Denies bloating, dysphagia, hematemesis, nausea or vomiting Genitourinary Genitourinary: Denies change in urinary stream or difficulty urinating Musculoskeletal Musculoskeletal: Denies back pain Integumentary Integumentary: Denies jaundice Neurologic Neurologic: Denies dizziness or focal weakness Physical Exam Const alert, oriented x3 and no apparent distress General Appearance: cooperative HEENT normocephalic and head/scalp atraumatic Eyes PERRL and EOMs intact bilaterally Resp clear to auscultation bilaterally Cardio Rate: regular rate Rhythm: regular rhythm GI soft to palpation, non-tender and non-distended Palpation: Negative for tender Bladder / Kidney Exam: no CVA tenderness Lab / Micro Data Result Diagrams: 12/18/20 02:36 12/18/20 02:36 Labs: Laboratory Results - last 24 hr 12/18/20 02:36: WBC 10.4, RBC 4.95, Hgb 14.8, Hct 44.5, MCV 89.9, MCH 29.9, MCHC 33.3, RDW Std Deviation 41.0, RDW Coeff of Hipolito 12.5, Plt Count 279, MPV 9.0, Immature Gran % (Auto) 0.400, Neut % (Auto) 82.1 H, Lymph % (Auto) 8.9 L, [place] % (Auto) 7.9, Eos % (Auto) 0.5, Baso % (Auto) 0.2, Absolute Neuts (auto) 8.5 H, Absolute Lymphs (auto) 0.92, Nucleated RBC % 0 12/18/20 02:36: Sodium 136, Potassium 3.6, Chloride 102, Carbon Dioxide 28.0, Anion Gap 6, BUN 11, Creatinine 0.84, Estim Creat Clear Calc 66.99, Est GFR (MDRD) Af Amer 86, Est GFR (MDRD) Non-Af 71, BUN/Creatinine Ratio 13.1, Glucose 115 H, Calcium 9.3, Total Bilirubin 0.70, AST 21, ALT 30, Alkaline Phosphatase 95, Total Protein 7.6, Albumin 3.3, Globulin 4.3 H, Albumin/Globulin Ratio 0.8 L Radiology Impression Abdomen/Pelvis CT 12/18/20 02:12 IMPRESSION: Interval worsening of sigmoid colon diverticulitis. Evidence of interval micro-perforation of an inflamed diverticulum, with a resulting 3 cm in greatest dimension extraluminal collection of fluid and air. The wall of this collection is not well delineated and this may not yet be a formed, drainable abscess. Electronically Signed: Ranjit Conway MD at 4:47 EDT Tel , Service support , ADDENDUM: 12/18/20 0456 IMPRESSION: Interval worsening of sigmoid colon diverticulitis. Evidence of interval micro-perforation of an inflamed diverticulum, with a resulting 3 cm in greatest dimension extraluminal collection of fluid and air. The wall of this collection is not well delineated and this may not yet be a formed, drainable abscess. N.B. : Crystal Crowell/ALMA DELIA quintana OT, confirmed on 12/18/2020 04:49:21 (ET) that the healthcare facility has received the radiology report. Electronically Signed: Ranjit Conway MD at 4:47 EDT Tel , Service support ,
[2020-12-18] MEDS: Lactated Ringers 1,000 ML 75 ML IV ×2 (07:45→22:21)
--- NOTE | 2020-12-18 10:25 | PCM.PN.HOSP ---
Subjective Subjective Patient was seen and examined. Admitted this morning with acute diverticulitis of the colon with microperforation She is currently on IV antibiotics -Cipro and Flagyl General surgery following, continue with conservative management Objective Data Objective Data Vital Signs: Vital Signs Temp Pulse Resp BP Pulse Ox 97.8 F 69 18 115/74 100 12/18/20 08:00 12/18/20 08:00 12/18/20 08:00 12/18/20 08:00 12/18/20 08:00 Oxygen Delivery Method Room Air Weight: 73 kg Body Mass Index (BMI) 23.8 Intake & Output: Intake and Output for Last 24 Hours 12/16/20 12/17/20 12/18/20 23:59 23:59 23:59 Intake Total 1100 / 1100 Balance 1100 / 1100 Medical Nutrition Assessment Dietitian: Malnutrition Criteria Met Start: 12/18/20 09:42 Freq: Status: Active Protocol: Document 12/18/20 09:42 SLA (Rec: 12/18/20 09:42 SLA [id number]) Nutrition Malnutrition Evidence of Malnutrition Exists Yes Malnutrition (severe): Acute Illness/Injury Evidenced By Suboptimal Energy Intake ( Severe),Weight Loss (Severe) Clinical Problem Acute Disease or Injury Related Malnutrition Etiology related to diverticular disease Signs/Symptoms as evidenced by 1.4% wt loss and <50% of normal po intake x 5 days Status Active Problem Recommendation Dietitian Recommendations/Changes When able to resume po diet, rec advance as tolerated to Transitional w/ goal of Cardiac Will monitor need for po supplements pending po intake as po diet advanced. Lab / Micro Data Result Diagrams: 12/18/20 02:36 12/18/20 02:36 Labs: Laboratory Results - last 24 hr 12/18/20 02:36: WBC 10.4, RBC 4.95, Hgb 14.8, Hct 44.5, MCV 89.9, MCH 29.9, MCHC 33.3, RDW Std Deviation 41.0, RDW Coeff of Hipolito 12.5, Plt Count 279, MPV 9.0, Immature Gran % (Auto) 0.400, Neut % (Auto) 82.1 H, Lymph % (Auto) 8.9 L, [place] % (Auto) 7.9, Eos % (Auto) 0.5, Baso % (Auto) 0.2, Absolute Neuts (auto) 8.5 H, Absolute Lymphs (auto) 0.92, Nucleated RBC % 0 12/18/20 02:36: Sodium 136, Potassium 3.6, Chloride 102, Carbon Dioxide 28.0, Anion Gap 6, BUN 11, Creatinine 0.84, Estim Creat Clear Calc 66.99, Est GFR (MDRD) Af Amer 86, Est GFR (MDRD) Non-Af 71, BUN/Creatinine Ratio 13.1, Glucose 115 H, Calcium 9.3, Total Bilirubin 0.70, AST 21, ALT 30, Alkaline Phosphatase 95, Total Protein 7.6, Albumin 3.3, Globulin 4.3 H, Albumin/Globulin Ratio 0.8 L Radiography Diagnostic Testing: Radiology Impression Abdomen/Pelvis CT 12/18/20 02:12 IMPRESSION: Interval worsening of sigmoid colon diverticulitis. Evidence of interval micro-perforation of an inflamed diverticulum, with a resulting 3 cm in greatest dimension extraluminal collection of fluid and air. The wall of this collection is not well delineated and this may not yet be a formed, drainable abscess. Electronically Signed: Ranjit Conway MD at 4:47 EDT Tel , Service support , ADDENDUM: 12/18/20 0456 IMPRESSION: Interval worsening of sigmoid colon diverticulitis. Evidence of interval micro-perforation of an inflamed diverticulum, with a resulting 3 cm in greatest dimension extraluminal collection of fluid and air. The wall of this collection is not well delineated and this may not yet be a formed, drainable abscess. N.B. : Crystal Crowell/ALMA DELIA quintana OT, confirmed on 12/18/2020 04:49:21 (ET) that the healthcare facility has received the radiology report. Electronically Signed: Ranjit Conway MD at 4:47 EDT Tel , Service support ,
[2020-12-18] MEDS: Morphine 2 MG/ML Syringe IV (11:16)
[2020-12-18] MEDS: Ciprofloxacin 200 MG/100 ML BAG 100 MG IV ×2 (11:17→22:21)
[2020-12-18] MEDS: metroNIDAZOLE 500 MG/100 ML BAG 100 MG IV ×2 (13:38→21:15)
[2020-12-18] MEDS: Metoprolol(XL)Succ 50 MG Tablet PO (21:15)
--- NOTE | 2020-12-18 22:45 | NURSING ---
This RN verified with Elisa Bennett RN meds, barcode not scanning.
[2020-12-19 03:02] VITALS: BP 111/65; PULSE 68; RESP 16; TEMP 36.7; O2SAT 98
[2020-12-19] MEDS: metroNIDAZOLE 500 MG/100 ML BAG 100 MG IV ×3 (05:07→22:34)
[2020-12-19 06:31] LABS: Absolute Neutrophil Count 5.5 X10^3/uL (2.0-7.7); Basophil# 0.02 X10^3/uL; Basophil% 0.3 % (0-1); Eosinophil# 0.08 X10^3/uL; Hematocrit 36.3 % (37-47); Hemoglobin 12.3 g/dL (12.0-15.0); Lymphocyte % 19.1 % (19-41); Mean Corp Hgb Conc 33.9 g/dL (32-36); Mean Corpuscular Hgb 30.1 pg (27.0-32.0); Mean Platelet Vol. 9.6 fl (6.2-12.0); Monocyte# 0.69 X10^3/uL; Monocyte% 8.8 % (0-10); NRBC Flagged by Analyzer 0 % (0-5); Neutrophil # 5.54 X10^3/uL (2.7-7.7); Neutrophil % 70.4 % (47-70); Platelet Count 228 K/mm3 (150-450); RBC Distribution Width CV 12.6 % (11.6-14.6); RBC Distribution Width SD 41.1 fl (35.1-43.9); Red Blood Count 4.08 M/mm3 (4.2-5.4); White Blood Count 7.9 K/mm3 (4.4-11.0)
[2020-12-19 06:57] LABS: Anion Gap 6 (5-15); BUN 9 mg/dL (7-18); BUN/Creat Ratio 12.4 RATIO (10-20); Calcium,Total 8.5 mg/dL (8.5-10.1); Chloride 106 mmol/L (98-107); Creatinine, Serum 0.72 mg/dL (0.55-1.02); EST Glomerular Filtration Rate 85 mL/min (>60); Est Glom Filt Rate - Afr Amer 103 mL/min (>60); Estimated Creatinine Clearance 56.27 ml/min; Glucose 92 mg/dL (74-106); Potassium 3.6 mmol/L (3.5-5.1); Sodium Level 139 mmol/L (136-145)
[2020-12-19 07:09] VITALS: O2SAT 98
[2020-12-19 08:19] VITALS: BP 122/72; PULSE 66; RESP 18; TEMP 36.4; O2SAT 99
[2020-12-19] MEDS: 0.9% Saline Lock 10 ML Syringe IV (08:22)
--- NOTE | 2020-12-19 08:22 | PCS.PANDOC ---
PANDEMIC DOCUMENTATION INITIATED: Date: 11/14/2020 Time: 190
[2020-12-19] MEDS: Ciprofloxacin 200 MG/100 ML BAG 100 MG IV ×2 (09:48→21:12)
--- NOTE | 2020-12-19 10:50 | CASEMGMT ---
RN CM Face to Face with patient for initial transition planning/care coordination assessment. RN CM introduced self and role at [facility]. Patient lying in bed, alert and oriented, at bedside. Patient willing to participate in assessment and is able to answer all questions appropriately. Care providers, pharmacy, and demographics verified. Patient wishes to discharge home, denies need for home health at this time. Patient states she has no further needs or concerns at this time. CM to follow for discharge planning needs that may arise. PCP: Shelli Specialists: Avinash, elementary teacher; [employer], [employer] Preferred Pharmacy: [facility] Insurance: [employer] Prescription Benefit: yes Living Will/HPOA: none LNOK: Living Arrangements: Patient lives with in a single story home with 2 steps and railing to enter the home. Patient states she is independent at home. Transportation: self/ DME/HHC: Patient states she has shower chair, BSC, Cane, walker, and grab bars. Disposition Plan: Patient to discharge home with family support and follow-up plans in place. Christal PAGE, RN, CM
--- NOTE | 2020-12-19 12:29 | PCM.PN.SRG ---
Subjective Subjective Pain is improved. However she is not completely pain-free Objective Data Objective Data Abdomen is soft tender in the left lower quadrant suprapubic area. No rebound guarding or peritoneal signs are identified. Vital Signs: Vital Signs Temp Pulse Resp BP Pulse Ox 97.6 F L 66 18 122/72 H 99 12/19/20 08:19 12/19/20 08:19 12/19/20 08:19 12/19/20 08:19 12/19/20 08:19 Oxygen Delivery Method Room Air Weight: 160 lb 14.999 oz Body Mass Index (BMI) 23.8 Intake & Output: Intake and Output for Last 24 Hours 12/17/20 12/18/20 12/19/20 23:59 23:59 23:59 Intake Total 2503.75 / 2503.75 783.75 / 783.75 Output Total 400 / 400 500 / 500 Balance 2103.75 / 2103.75 283.75 / 283.75 Medical Nutrition Assessment Dietitian: Malnutrition Criteria Met Start: 12/18/20 09:42 Freq: Status: Active Protocol: Document 12/18/20 09:42 SLA (Rec: 12/18/20 09:42 SLA [id number]) Nutrition Malnutrition Evidence of Malnutrition Exists Yes Malnutrition (severe): Acute Illness/Injury Evidenced By Suboptimal Energy Intake ( Severe),Weight Loss (Severe) Clinical Problem Acute Disease or Injury Related Malnutrition Etiology related to diverticular disease Signs/Symptoms as evidenced by 1.4% wt loss and <50% of normal po intake x 5 days Status Active Problem Recommendation Dietitian Recommendations/Changes When able to resume po diet, rec advance as tolerated to Transitional w/ goal of Cardiac Will monitor need for po supplements pending po intake as po diet advanced. Lab / Micro Data Result Diagrams: 12/19/20 06:00 12/19/20 06:00 Labs: Laboratory Results - last 24 hr 12/19/20 06:00: WBC 7.9, RBC 4.08 L, Hgb 12.3, Hct 36.3 L, MCV 89.0, MCH 30.1, MCHC 33.9, RDW Std Deviation 41.1, RDW Coeff of Hipolito 12.6, Plt Count 228, MPV 9.6, Immature Gran % (Auto) 0.400, Neut % (Auto) 70.4 H, Lymph % (Auto) 19.1, [place] % (Auto) 8.8, Eos % (Auto) 1.0, Baso % (Auto) 0.3, Absolute Neuts (auto) 5.5, Absolute Lymphs (auto) 1.50, Nucleated RBC % 0 12/19/20 06:00: Sodium 139, Potassium 3.6, Chloride 106, Carbon Dioxide 27.0, Anion Gap 6, BUN 9, Creatinine 0.72, Estim Creat Clear Calc 56.27, Est GFR (MDRD) Af Amer 103, Est GFR (MDRD) Non-Af 85, BUN/Creatinine Ratio 12.4, Glucose 92, Calcium 8.5 Assessment & Plan Assessment/Plan (1) Diverticulitis of colon with perforation: PLAN: We will continue present plan. Add clear liquids may advance to full liquids. Once patient is pain-free will be able to discharge her home on oral antibiotics.
--- NOTE | 2020-12-19 13:07 | PN.HOSP_ITS ---
Subjective Subjective Patient states she is feeling better overall, however she is still having pain. She notes pain mostly with lying on her left side and initially with sitting. She has intermittent spasm that she thinks is related to peristalsis. She is pleased with her progress. Objective Data Objective Data Vital Signs: Vital Signs Temp Pulse Resp BP Pulse Ox 97.6 F L 66 18 122/72 H 99 12/19/20 08:19 12/19/20 08:19 12/19/20 08:19 12/19/20 08:19 12/19/20 08:19 Oxygen Delivery Method Room Air Weight: 73 kg Body Mass Index (BMI) 23.8 Intake & Output: Intake and Output for Last 24 Hours 12/17/20 12/18/20 12/19/20 23:59 23:59 23:59 Intake Total 2503.75 / 2503.75 783.75 / 783.75 Output Total 400 / 400 500 / 500 Balance 2103.75 / 2103.75 283.75 / 283.75 Medical Nutrition Assessment Dietitian: Malnutrition Criteria Met Start: 12/18/20 09:42 Freq: Status: Active Protocol: Document 12/18/20 09:42 SLA (Rec: 12/18/20 09:42 SLA [id number]) Nutrition Malnutrition Evidence of Malnutrition Exists Yes Malnutrition (severe): Acute Illness/Injury Evidenced By Suboptimal Energy Intake ( Severe),Weight Loss (Severe) Clinical Problem Acute Disease or Injury Related Malnutrition Etiology related to diverticular disease Signs/Symptoms as evidenced by 1.4% wt loss and <50% of normal po intake x 5 days Status Active Problem Recommendation Dietitian Recommendations/Changes When able to resume po diet, rec advance as tolerated to Transitional w/ goal of Cardiac Will monitor need for po supplements pending po intake as po diet advanced. Lab / Micro Data Result Diagrams: 12/19/20 06:00 12/19/20 06:00 Labs: Laboratory Results - last 24 hr 12/19/20 06:00: WBC 7.9, RBC 4.08 L, Hgb 12.3, Hct 36.3 L, MCV 89.0, MCH 30.1, MCHC 33.9, RDW Std Deviation 41.1, RDW Coeff of Hipolito 12.6, Plt Count 228, MPV 9.6, Immature Gran % (Auto) 0.400, Neut % (Auto) 70.4 H, Lymph % (Auto) 19.1, [place] % (Auto) 8.8, Eos % (Auto) 1.0, Baso % (Auto) 0.3, Absolute Neuts (auto) 5.5, Absolute Lymphs (auto) 1.50, Nucleated RBC % 0 12/19/20 06:00: Sodium 139, Potassium 3.6, Chloride 106, Carbon Dioxide 27.0, Anion Gap 6, BUN 9, Creatinine 0.72, Estim Creat Clear Calc 56.27, Est GFR (MDRD) Af Amer 103, Est GFR (MDRD) Non-Af 85, BUN/Creatinine Ratio 12.4, Glucose 92, Calcium 8.5 Physical Exam Const alert, oriented x3, no apparent distress, average body habitus and healthy appearing Constitutional Narrative: Upper middle-aged white female sitting up in the edge of the bed, appears comfortable, nontoxic Exam Limitations: no limitations HEENT head/scalp atraumatic and moist oral mucous membranes Head and Scalp: normocephalic Resp normal respiratory effort, no retractions, no use of accessory muscles and clear to auscultation bilaterally Auscultation: Negative for crackles, rales, rhonchi or wheezes Cardio regular rate, regular rhythm, S1 normal heart sound, S2 normal heart sound, no murmurs, no rub, no gallops, no clicks and no JVD GI soft to palpation and non-distended; Negative for non-tender or hepatosplenomegaly GI Narrative: Bowel sounds normal Palpation: tender LLQ and guarding Extremity no clubbing, cyanosis or edema Peripheral Pulses: Yes pulses 2+ throughout Neuro oriented x3 and moves all extremities Sensorium / Orientation: awake and alert Speech: speech normal Assessment & Plan Assessment/Plan (1) Acute diverticulitis: (2) Diverticulitis of colon with perforation: PLAN: Acute diverticulosis of the sigmoid colon with microperforation -Continue IV antibiotics -Surgery has advance to clear liquids with intent for further advancement to full liquids as tolerated -Continue pain management -Okay for discharge once patient is pain-free and tolerating oral diet -We will need follow-up in the outpatient setting for sigmoid resection -Had multiple bouts of sigmoid diverticulitis in the past -Failed outpatient treatment with Augmentin prior to admission Hypertension -Continue home medications Hyperlipidemia -Continue home medications History mitral valve prolapse -Stable DVT prophylaxis -Continue ambulation CODE STATUS -Full code Charges/Coding Visit Charges Inpatient E&M: 12624 Subs Hosp L2
[2020-12-19 14:17] VITALS: BP 131/88; PULSE 67; RESP 18; TEMP 36.6
--- NOTE | 2020-12-19 16:05 | CHAPLAIN ---
Type of Pastoral Visit _x__ Initial Visit ___ Follow-up Visit ___ On-call Visit ___ General Patient Visit ___ Spiritual Assessment ___ Family Conference ___ Bereavement ___ Rapid Response ___ Code Blue ___ Other (describe below) Pastoral Care Referral From _x__ Patient ___ Family ___ Nurse ___ Physician ___ Director Of Employee Development ___ Corporate Strategy Intern ___ Other (describe below) Sacrament/Intervention _x__ Active listening ___ Anointing ___ Roman Catholic ___ Bereavement ___ Communion ___ Darby exploration ___ ___ Life review _x__ Prayer ___ Reconciliation ___ Sacrament of Sick _x__ Supportive presence ___ Wedding ___ Other (describe below) Pastoral Comments patient requests prayer for potential future surgery to come
[2020-12-19 21:04] VITALS: BP 122/74; PULSE 64; RESP 18; TEMP 36.8; O2SAT 100
[2020-12-19 21:10] VITALS: BP 122/74; PULSE 64
[2020-12-19] MEDS: Metoprolol(XL)Succ 50 MG Tablet PO (21:10)
[2020-12-20 03:38] VITALS: BP 109/68; PULSE 76; RESP 16; TEMP 36.6; O2SAT 99
[2020-12-20] MEDS: metroNIDAZOLE 500 MG/100 ML BAG 100 MG IV ×2 (04:59→13:33)
[2020-12-20 06:40] VITALS: O2SAT 95
--- NOTE | 2020-12-20 07:55 | PCM.PN.HOSP ---
Objective Data Objective Data Vital Signs: Vital Signs Temp Pulse Resp BP Pulse Ox 98 F 76 16 109/68 99 12/20/20 03:38 12/20/20 03:38 12/20/20 03:38 12/20/20 03:38 12/20/20 03:38 Oxygen Delivery Method Room Air Weight: 73 kg Body Mass Index (BMI) 23.8 Intake & Output: Intake and Output for Last 24 Hours 12/18/20 12/19/20 12/20/20 23:59 23:59 23:59 Intake Total 2503.75 / 2503.75 1344.00 / 1344.00 231.75 / 231.75 Output Total 400 / 400 500 / 500 Balance 2103.75 / 2103.75 844.00 / 844.00 231.75 / 231.75 Medical Nutrition Assessment Dietitian: Malnutrition Criteria Met Start: 12/18/20 09:42 Freq: Status: Active Protocol: Document 12/18/20 09:42 SLA (Rec: 12/18/20 09:42 SLA [id number]) Nutrition Malnutrition Evidence of Malnutrition Exists Yes Malnutrition (severe): Acute Illness/Injury Evidenced By Suboptimal Energy Intake ( Severe),Weight Loss (Severe) Clinical Problem Acute Disease or Injury Related Malnutrition Etiology related to diverticular disease Signs/Symptoms as evidenced by 1.4% wt loss and <50% of normal po intake x 5 days Status Active Problem Recommendation Dietitian Recommendations/Changes When able to resume po diet, rec advance as tolerated to Transitional w/ goal of Cardiac Will monitor need for po supplements pending po intake as po diet advanced. Lab / Micro Data Result Diagrams: 12/19/20 06:00 12/19/20 06:00 Assessment & Plan Assessment/Plan (1) Acute diverticulitis: (2) Diverticulitis of colon with perforation: PLAN: Acute diverticulosis of the sigmoid colon with microperforation -Continue IV antibiotics -Surgery has advance to clear liquids with intent for further advancement to full liquids as tolerated -Continue pain management -Okay for discharge once patient is pain-free and tolerating oral diet -We will need follow-up in the outpatient setting for sigmoid resection -Had multiple bouts of sigmoid diverticulitis in the past -Failed outpatient treatment with Augmentin prior to admission Hypertension -Continue home medications Hyperlipidemia -Continue home medications History mitral valve prolapse -Stable DVT prophylaxis -Continue ambulation CODE STATUS -Full code
[2020-12-20 08:26] VITALS: BP 129/79; PULSE 70; RESP 18; TEMP 36.6; O2SAT 100
[2020-12-20] MEDS: Ciprofloxacin 200 MG/100 ML BAG 100 MG IV (09:27)
--- NOTE | 2020-12-20 11:34 | PCM.PN.SRG ---
Subjective Subjective Patient is feeling better today. Tolerating p.o. Objective Data Objective Data No rebound guarding or peritoneal signs Vital Signs: Vital Signs Temp Pulse Resp BP Pulse Ox 97.9 F 70 18 129/79 H 100 12/20/20 08:26 12/20/20 08:26 12/20/20 08:26 12/20/20 08:26 12/20/20 08:26 Oxygen Delivery Method Room Air Weight: 160 lb 14.999 oz Body Mass Index (BMI) 23.8 Intake & Output: Intake and Output for Last 24 Hours 12/18/20 12/19/20 12/20/20 23:59 23:59 23:59 Intake Total 2503.75 / 2503.75 1344.00 / 1344.00 398.00 / 398.00 Output Total 400 / 400 500 / 500 Balance 2103.75 / 2103.75 844.00 / 844.00 398.00 / 398.00 Medical Nutrition Assessment Dietitian: Malnutrition Criteria Met Start: 12/18/20 09:42 Freq: Status: Active Protocol: Document 12/18/20 09:42 SLA (Rec: 12/18/20 09:[address] [facility] [id number]) Nutrition Malnutrition Evidence of Malnutrition Exists Yes Malnutrition (severe): Acute Illness/Injury Evidenced By Suboptimal Energy Intake ( Severe),Weight Loss (Severe) Clinical Problem Acute Disease or Injury Related Malnutrition Etiology related to diverticular disease Signs/Symptoms as evidenced by 1.4% wt loss and <50% of normal po intake x 5 days Status Active Problem Recommendation Dietitian Recommendations/Changes When able to resume po diet, rec advance as tolerated to Transitional w/ goal of Cardiac Will monitor need for po supplements pending po intake as po diet advanced. Lab / Micro Data Result Diagrams: 12/19/20 06:00 12/19/20 06:00 Assessment & Plan Assessment/Plan (1) Diverticulitis of colon with perforation: PLAN: Okay to discharge home on oral antibiotics. We will follow up with the patient in 1 week. Would have her remain on full liquids for that time.
--- NOTE | 2020-12-20 12:11 | PCM.DC.SUM ---
Providers Date of Admission: 12/18/20 Primary Care Physician: Dr. Willie Marques MD Consultations 12/18/20 10:39 Consult: General Surgery Routine Consulting Provider: Stephen Fletcher Reason for Consult: Diverticulitis with microperfuration EMERGENT Consult: Yes MD Notified: Yes Date Notified: 12/18/20 Time Notified: 06:27 Method of Notification: Page Method of Consult:: In-Person Reason For Visit: ACUTE DIVERTICULTIS WITH MICROPERFORATION Diagnosis Discharge Diagnosis (1) Diverticulitis of colon with perforation: Status: Acute Code(s): K57.20 - Diverticulitis of large intestine with perforation and abscess without bleeding Medications at Discharge Home Medications calcium citrate malate-vitamin D3 500 mg-200 unit tablet 1 tab PO DAILY tab 07/02/18 acetaminophen 500 mg capsule 500 mg PO Q6H PRN 07/13/19 aspirin 81 mg tablet,delayed release 81 mg PO DAILY 07/13/19 jmruehevwk-fltedcuxmepfl-roimxzbu 50 mg-300 mg-40 mg capsule 1 cap PO Q6H PRN 07/13/19 multivitamin 1 tab PO DAILY tab 07/13/19 zinc 50 mg tablet 50 mg PO DAILY 07/13/19 atorvastatin 10 mg tablet 10 mg PO QHS #90 tab 04/15/20 metoprolol succinate 50 mg tablet,extended release 24 hr 50 mg PO DAILY #90 tab 04/15/20 ramipril 5 mg capsule 5 mg PO DAILY #90 cap 04/15/20 ciprofloxacin HCl [Cipro] 500 mg PO Q12H #14 tab 12/20/20 metronidazole 500 mg PO Q8H #20 tab 12/20/20 Hospital Course Operations None Summary of Care Provided Minutes Spent on Discharge: 35 Hospital Course: Patient is a 70-year-old lady admitted with abdominal pain Acute diverticulitis having failed outpatient treatment -Patient was found to have micro perforation on admission admitted to regular nursing floor for conservative management with consultation placed to Dr. Fletcher with general surgery patient did respond to treatment discharge 3 days after her admission with Cipro and Flagyl for 7 additional days. Patient to follow-up with Dr. Fletcher for subsequent care as outpatient within a week Hypertension - Blood pressure controlled, home medications continued with dose adjustment as needed Dyslipidemia -Patient is on statin therapy, continued at home dose History mitral valve prolapse -Stable DVT prophylaxis -Continue ambulation CODE STATUS -Full code Physical Exam Narrative GENERAL: cooperative HEENT: Atraumatic; EYES; Anicteric, Normal Conjunctiva NECK; supple, normal thyroid, RESPIRATORY: Diminished to auscultation CARDIOVASCULAR: Regular S1 S2, GI: soft, normoactive bowel sounds, : No Renal angle tenderness; PSYCH; Flat affect Medical Records Data Medical Nutrition Assessment Dietitian: Malnutrition Criteria Met Start: 12/18/20 09:42 Freq: Status: Active Protocol: Document 12/18/20 09:42 [facility] (Rec: 12/18/20 09:42 [facility] [id number]) Nutrition Malnutrition Evidence of Malnutrition Exists Yes Malnutrition (severe): Acute Illness/Injury Evidenced By Suboptimal Energy Intake ( Severe),Weight Loss (Severe) Clinical Problem Acute Disease or Injury Related Malnutrition Etiology related to diverticular disease Signs/Symptoms as evidenced by 1.4% wt loss and <50% of normal po intake x 5 days Status Active Problem Recommendation Dietitian Recommendations/Changes When able to resume po diet, rec advance as tolerated to Transitional w/ goal of Cardiac Will monitor need for po supplements pending po intake as po diet advanced. Weight / BMI Weight Weight: 73 kg Body Mass Index (BMI) 23.8 ABG / Lab / Microbiology Data Result Diagrams: 12/19/20 06:00 12/19/20 06:00 D/C Instructions Discharge Diet: [place] diet Discharge Activity: Return to Normal Activity Call your doctor if you observe: Fever of 101 or Higher, Shortness of breath, Fainting spells and Chest pain Meaningful Use Info Meaningful Use Diagnoses (Choose all that apply): None applicable Discharge Plan Admission Admit Date/Time: 12/18/20 06:18 Primary Reason for Your Visit: Diverticulitis with microperforation Attending Provider: Zohaib León Primary Care Provider: Willie Marques Consulting Providers: Stephen Fletcher Instructions Patient Instructions: ED Chest Pain, Noncardiac Discharge Orders/Prescriptions Prescriptions: New ciprofloxacin HCl [Cipro] 500 mg tablet 500 mg PO Q12H Qty: 14 RF: 0 metronidazole 500 mg tablet 500 mg PO Q8H Qty: 20 RF: 0 Continued calcium citrate malate-vitamin D3 500 mg-200 unit tablet 500-200 mg-unit tablet 1 tab PO DAILY RF: 0 aspirin [Adult Low Dose Aspirin] 81 mg tablet,delayed release (DR/EC) 81 mg PO DAILY RF: 0 zinc [Chelated Zinc] 50 mg tablet 50 mg PO DAILY RF: 0 tfqudjhzau-vtnaoofgxtnaf-fnqa 50-300-40 mg capsule 1 cap PO Q6H PRN (Reason: Migraine Headache) RF: 0 acetaminophen 500 mg capsule 500 mg PO Q6H PRN (Reason: Pain) RF: 0 multivitamin Tablet 1 tab PO DAILY RF: 0 atorvastatin 10 mg tablet 10 mg PO QHS Qty: 90 RF: 3 metoprolol succinate 50 mg tablet extended release 24 hr 50 mg PO DAILY Qty: 90 RF: 3 ramipril 5 mg capsule 5 mg PO DAILY Qty: 90 RF: 3 Discontinued amoxicillin-pot clavulanate [Augmentin] 875-125 mg tablet 1 tab PO TID Qty: 30 RF: 0 Referrals / Follow Up: Stephen Fletcher MD [STAFF PHYSICIAN] - In 1 Week Willie Marques MD [Primary Care Provider] - Disposition Disposition (needs filled in before D/C Order can be placed): Home, Self Care Charges/Coding Visit Charges Inpatient E&M: 31491 Disch Hosp
--- NOTE | 2020-12-20 12:19 | PCM.DC ---
Discharge Instructions Diet Discharge Diet: [place] diet Dressing / Incision Call your doctor if you observe: Fever of 101 or Higher, Shortness of breath, Fainting spells and Chest pain Follow Up Care Test Results: Test results from this visit will be discussed in further detail at your follow-up appointment, if applicable. Discharge Plan Admission Admit Date/Time: 12/18/20 06:18 Primary Reason for Your Visit: Diverticulitis with microperforation Attending Provider: Zohaib León Primary Care Provider: Willie Marques Consulting Providers: Stephen Fletcher Instructions Patient Instructions: ED Chest Pain, Noncardiac Discharge Orders/Prescriptions Prescriptions: New ciprofloxacin HCl [Cipro] 500 mg tablet 500 mg PO Q12H Qty: 14 RF: 0 metronidazole 500 mg tablet 500 mg PO Q8H Qty: 20 RF: 0 Continued calcium citrate malate-vitamin D3 500 mg-200 unit tablet 500-200 mg-unit tablet 1 tab PO DAILY RF: 0 aspirin [Adult Low Dose Aspirin] 81 mg tablet,delayed release (DR/EC) 81 mg PO DAILY RF: 0 zinc [Chelated Zinc] 50 mg tablet 50 mg PO DAILY RF: 0 ksrkqtdpmy-cggcdmeveoqzq-wffc 50-300-40 mg capsule 1 cap PO Q6H PRN (Reason: Migraine Headache) RF: 0 acetaminophen 500 mg capsule 500 mg PO Q6H PRN (Reason: Pain) RF: 0 multivitamin Tablet 1 tab PO DAILY RF: 0 atorvastatin 10 mg tablet 10 mg PO QHS Qty: 90 RF: 3 metoprolol succinate 50 mg tablet extended release 24 hr 50 mg PO DAILY Qty: 90 RF: 3 ramipril 5 mg capsule 5 mg PO DAILY Qty: 90 RF: 3 Discontinued amoxicillin-pot clavulanate [Augmentin] 875-125 mg tablet 1 tab PO TID Qty: 30 RF: 0 Referrals / Follow Up: Stephen Fletcher MD [STAFF PHYSICIAN] - In 1 Week Willie Marques MD [Primary Care Provider] - Disposition Disposition (needs filled in before D/C Order can be placed): Home, Self Care
[2020-12-20 13:11] VITALS: BP 120/68; PULSE 96; RESP 18; TEMP 36.5; O2SAT 99
--- NOTE | 2020-12-20 13:55 | PHA.DC.MC ---
Pharmacy Service has performed discharge medication reconciliation and counseling for this patient. 1. CIPROFLOXACIN 500MG PO BID X 7 DAYS 2. METRONIDAZOLE 500MG PO TID X 7 DAYS The patient's discharge medication list was reviewed for discrepancies and discrepancies were resolved. Home Medications calcium citrate malate-vitamin D3 500 mg-200 unit tablet 1 tab PO DAILY tab 07/02/18 acetaminophen 500 mg capsule 500 mg PO Q6H PRN 07/13/19 aspirin 81 mg tablet,delayed release 81 mg PO DAILY 07/13/19 parmltxfxw-hchurweibeymh-pndvpqtz 50 mg-300 mg-40 mg capsule 1 cap PO Q6H PRN 07/13/19 multivitamin 1 tab PO DAILY tab 07/13/19 zinc 50 mg tablet 50 mg PO DAILY 07/13/19 atorvastatin 10 mg tablet 10 mg PO QHS #90 tab 04/15/20 metoprolol succinate 50 mg tablet,extended release 24 hr 50 mg PO DAILY #90 tab 04/15/20 ramipril 5 mg capsule 5 mg PO DAILY #90 cap 04/15/20 ciprofloxacin HCl [Cipro] 500 mg PO Q12H #14 tab 12/20/20 metronidazole 500 mg PO Q8H #20 tab 12/20/20 The patient was counseled on the following discharge medications and changes in medications for homegoing were reviewed. The Reason for Use, instructions for use, and potential side effects were reviewed for all new medications. The patient's questions regarding all of their medications were answered. The patient was able to verbally demonstrate an understanding of their discharge medications.
== END 2020-12-20 15:30 | disposition home or self-care (01) | DRG 392 ==
LOC: ED 06:14 → MS2 06:40
PROVIDERS: Admitting Provider Hospitalist; Emergency Provider Emergency Medicine; PCP Family Medicine; Visit Provider Internal Medicine
DX: K57.20 Diverticulitis of large intestine with perforation and abscess without bleeding (principal); E44.1 Mild protein-calorie malnutrition; I10 Essential (primary) hypertension; E78.5 Hyperlipidemia, unspecified; I34.1 Nonrheumatic mitral (valve) prolapse; Z68.23 Body mass index [BMI] 23.0-23.9, adult; E78.00 Pure hypercholesterolemia, unspecified; I36.1 Nonrheumatic tricuspid (valve) insufficiency; Z82.49 Family history of ischemic heart disease and other diseases of the circulatory system; Z85.42 Personal history of malignant neoplasm of other parts of uterus; Z88.1 Allergy status to other antibiotic agents; Z91.048 Other nonmedicinal substance allergy status; Z90.710 Acquired absence of both cervix and uterus
CPT/HCPCS: 36415; 74177; 80048; 80053; 85025; 97802; 99284; J7030; J7050; J7120; Q9967; A4216; J0744; J2405

== ENCOUNTER → 2021-10-06 | Outpatient (CLI) | payer MEDICARE, OTHER, SELFPAY ==
[2021-10-06 09:08] LABS: AST(SGOT) 20 U/L (15-37); Alanine Aminotransfer ALT/SGPT 24 U/L (13-56); Albumin, Serum 3.8 g/dL (3.2-5.0); Alkaline Phosphatase 81 U/L (45-117); Bilirubin, Direct 0.16 mg/dL (0.00-0.30); Cholesterol 151 mg/dL (200); Globulin 3.3 g/dL (2.2-4.2); High Density Lipoprotein 55 mg/dL; Protein, Total 7.1 g/dL (6.4-8.2); Triglycerides 149 mg/dL; Very Low Density Lipoprotein 30 mg/dL (5-40)
== END | disposition home or self-care (01) ==
PROVIDERS: PCP Family Medicine; Referring Provider Internal Medicine Cardiovascular Disease; Visit Provider Internal Medicine Cardiovascular Disease
DX: E78.00 Pure hypercholesterolemia, unspecified (principal)
CPT/HCPCS: 36415; 80061; 80076

== ENCOUNTER → 2022-03-05 | Outpatient (CLI) | payer MEDICARE, OTHER, SELFPAY ==
[2022-03-05 10:03] LABS: AST(SGOT) 19 U/L (15-37); Alanine Aminotransfer ALT/SGPT 34 U/L (13-56); Albumin, Serum 3.5 g/dL (3.2-5.0); Alkaline Phosphatase 81 U/L (45-117); Bilirubin, Direct 0.15 mg/dL (0.00-0.30); Cholesterol 138 mg/dL (200); High Density Lipoprotein 52 mg/dL; Protein, Total 6.5 g/dL (6.4-8.2); Triglycerides 199 mg/dL; Very Low Density Lipoprotein 40 mg/dL (5-40)
== END | disposition home or self-care (01) ==
LOC: LAB 08:41
PROVIDERS: PCP Family Medicine; Visit Provider Internal Medicine Cardiovascular Disease
DX: E78.00 Pure hypercholesterolemia, unspecified (principal)
CPT/HCPCS: 36415; 80061; 80076

== ENCOUNTER → 2022-09-04 | Outpatient (CLI) | payer MEDICARE, OTHER, SELFPAY ==
[2022-09-04 11:07] LABS: AST(SGOT) 24 U/L (15-37); Alanine Aminotransfer ALT/SGPT 38 U/L (13-56); Albumin, Serum 3.9 g/dL (3.2-5.0); Alkaline Phosphatase 100 U/L (45-117); Bilirubin, Direct 0.16 mg/dL (0.00-0.30); Cholesterol 141 mg/dL (200); Globulin 3.6 g/dL (2.2-4.2); High Density Lipoprotein 48 mg/dL; Protein, Total 7.5 g/dL (6.4-8.2); Triglycerides 197 mg/dL; Very Low Density Lipoprotein 39 mg/dL (5-40)
== END | disposition home or self-care (01) ==
LOC: LAB 09:44
PROVIDERS: Physician Assistant Medical; PCP Family Medicine; Referring Provider Internal Medicine Cardiovascular Disease; Visit Provider Internal Medicine Cardiovascular Disease
DX: E78.00 Pure hypercholesterolemia, unspecified (principal)
CPT/HCPCS: 36415; 80061; 80076

== ENCOUNTER 2023-08-17 19:17 | Emergency (ER) | payer MEDICARE, OTHER, SELFPAY ==
[2023-08-17 19:17] VITALS: BP 130/85; PULSE 76; RESP 16; TEMP 36.6; O2SAT 98; BMI 26.2
[2023-08-17 19:28] VITALS: BP 145/88; PULSE 74; RESP 16; O2SAT 98
--- NOTE | 2023-08-17 19:37 | EDS_ITS ---
HPI <WHITLEY Judd - Last Filed: 08/17/23 21:06> History of Present Illness Chief Complaint: Nosebleed Narrative Narrative: 73-year-old female states her nose has been slightly running this week and about 30 minutes prior to arrival her left nostril started gushing blood. She states it was bleeding for about 15 minutes. She called her daughter who told her to put Vaseline on a Q-tip and apply inside the nostril and put a cool washcloth over her nose and to stop the bleeding. She is on baby aspirin, no blood thinners. No trauma. PFSH <WHITLEY Judd - Last Filed: 08/17/23 21:06> [facility] Medical History (Reviewed 02/08/23 @ 11:36 by Florence Lynn [employer]ATING SYSTEMS INSTALLER, HEATING SYSTEMS INSTALLER-C) Chest pain, precordial Chest pain, unspecified Diverticulitis Essential hypertension Hyperlipidemia Hypertension Non-rheumatic tricuspid valve insufficiency Nonrheumatic mitral (valve) prolapse Nonrheumatic mitral valve prolapse Palpitations Pure hypercholesterolemia Home Medications ?Medication ?Instructions ?Recorded ?Last Taken ?Type acetaminophen 500 mg capsule 500 mg PO Q6H PRN Pain 07/13/19 Unknown History aspirin 81 mg tablet,delayed 81 mg PO DAILY 07/13/19 Unknown History release (Adult Low Dose Aspirin) [id number]-vmmfxzqhtjmup-[id number] 1 cap PO Q6H PRN Migraine Headache 07/13/19 Unknown History 50 mg-300 mg-40 mg capsule multivitamin 1 tab PO DAILY 07/13/19 Unknown History zinc 50 mg tablet (Chelated Zinc) 50 mg PO DAILY 07/13/19 Unknown History calcium citrate malate-vitamin D3 1 tab PO BID 09/11/21 Unknown History 500 mg-200 unit tablet atorvastatin 10 mg tablet 10 mg PO QHS #90 tabs 04/22/23 Unknown Rx metoprolol succinate 50 mg 50 mg PO DAILY #90 tabs 04/22/23 Unknown Rx tablet,extended release 24 hr Allergy/AdvReac Type Severity Reaction Status Date / Time adhesive tape Allergy Rash Verified 08/17/23 19:18 Tetracyclines Allergy Rash Verified 08/17/23 19:18 Family History (Reviewed 02/08/23 @ 11:36 by Florence Lynn HEATING SYSTEMS INSTALLER, HEATING SYSTEMS INSTALLER-C) Father CAD (coronary artery disease) HX CABG Afib HX ablation x2 Hypertension Diabetes Sister Myocardial infarction Surgical History History of hysterectomy History of partial colectomy (~04/2021) History of tonsillectomy (~1956) HX: benign breast biopsy Social History (Reviewed 02/08/23 @ 11:36 by Florence Lynn HEATING SYSTEMS INSTALLER, HEATING SYSTEMS INSTALLER-C) Smoking Status: Never smoker alcohol intake: never substance use type: does not use caffeine: Yes Type: carbonated beverages what type of physical activity do you participate in: walking frequency: daily duration: < 15 minutes/day seatbelt use: always do you feel safe at home: Yes ROS <WHITLEY Judd - Last Filed: 08/17/23 21:06> ROS ED ROS Narrative Constitutional: Negative for fever, chills, malaise. Respiratory: Negative for shortness of breath. GI: Negative for vomiting. Neuro: Negative for headache. EXAM <WHITLEY Judd - Last Filed: 08/17/23 21:06> Physical Exam Narrative Exam Narrative: CONST: Patient sitting in no acute distress. EYES: Normal inspection. ENT: Visualized anterior blood vessel with small clot left anterior nostril. No active bleeding. Normal posterior oropharynx. NECK: Normal inspection. SKIN: Color normal, no rash, warm, dry, intact. EXTREMITIES: Normal appearance, no pedal edema. NEURO: Alert and answering questions appropriately. PSYCH: Normal affect. Const Vital Signs: 08/17/23 19:17 08/17/23 19:28 08/17/23 20:13 Temperature 97.8 F 98.1 F Temperature Source Temporal Pulse Rate 76 74 68 Respiratory Rate 16 16 18 Blood Pressure 130/85 H 145/88 H 149/90 H Blood Pressure Mean 100 107 109 Pulse Ox 98 98 96 Oxygen Delivery Method Room Air Room Air <Dr. Stephen Barajas, DO - Last Filed: 08/17/23 20:15> Physical Exam Const Vital Signs: 08/17/23 19:17 08/17/23 19:28 08/17/23 20:13 Temperature 97.8 F 98.1 F Temperature Source Temporal Pulse Rate 76 74 68 Respiratory Rate 16 16 18 Blood Pressure 130/85 H 145/88 H 149/90 H Blood Pressure Mean 100 107 109 Pulse Ox 98 98 96 Oxygen Delivery Method Room Air Room Air MDM <Dr. Stephen Barajas DO - Last Filed: 08/17/23 20:15> [facility] Treatment and Re-Evaluation :: I have personally performed a face to face assessment of the patient and have reviewed the SRINIVASAN Note. I performed a substantive portion of the visit including all aspects of the following. My patterson findings include: History is 73-year-old female developed a nosebleed on the left nares this evening. She was able to put some Vaseline in there and hold pressure and eventually stopped. She has not had a nosebleed before. She takes a baby aspirin a day. She denies any inciting event such as trauma sneezing coughing. Exam is just inside the naris slightly more anterior than expected is a small blood vessel with a fresh clot on it. I do not see any evidence of active bleeding anywhere else. Medical Decison Making I instructed the patient on Afrin soaked cottonball and direct pressure using pincers. I do not think given her symptoms and location and with the size of the blood vessel that packing would be our first-line treatment. I would opt more for conservative measures and safe packing if she would start to rebleed. Patient understands the plan is comfortable with the Discharge Plan Triage Chief Complaint: Nosebleed ED Midlevel Provider: Faviola Uriostegui ED Provider: Stephen Barajas Dx/Rx/DC Orders Clinical Impression: Anterior epistaxis Instructions: ED Epistaxis (Adult) Prescriptions: No Action calcium citrate malate-vit D3 500-200 mg-unit tablet 1 tab PO BID aspirin [Adult Low Dose Aspirin] 81 mg tablet,delayed release (DR/EC) 81 mg PO DAILY zinc [Chelated Zinc] 50 mg tablet 50 mg PO DAILY fzqtfumcis-pnvwspaupqpev-ppqz 50-300-40 mg capsule 1 cap PO Q6H PRN (Reason: Migraine Headache) acetaminophen 500 mg capsule 500 mg PO Q6H PRN (Reason: Pain) multivitamin Tablet 1 tab PO DAILY Patient Comments: multivitamin metoprolol succinate 50 mg tablet extended release 24 hr 50 mg PO DAILY Qty: 90 3RF atorvastatin 10 mg tablet 10 mg PO QHS Qty: 90 3RF Primary Care Provider: Willie Marques Referrals: Willie Marques MD [Primary Care Provider] - Activity Restrictions/Additional Instructions: If bleeding recurs soak the cottonball with Afrin and apply in your nose. Either hold direct pressure under the bridge of the nose with your fingers or use the nose clamp and do not remove for at least 15 minutes. If you cannot get bleeding to stop come back to the emergency room. Print Language: Lithuanian Disposition Disposition: Home, Self Care Discharge Date/Time: 08/17/23 20:15
[2023-08-17] MEDS: Oxymetazoline 0.05% 1 SPRAY SPRAY.BTL NASAL (20:12)
[2023-08-17 20:13] VITALS: BP 149/90; PULSE 68; RESP 18; TEMP 36.7; O2SAT 96
== END 2023-08-17 20:15 | disposition home or self-care (01) ==
PROVIDERS: Emergency Provider Emergency Medicine; PCP Family Medicine; Visit Provider Emergency Medicine
DX: R04.0 Epistaxis (principal); Z79.82 Long term (current) use of aspirin; E78.5 Hyperlipidemia, unspecified; I10 Essential (primary) hypertension; Z79.899 Other long term (current) drug therapy; Z90.710 Acquired absence of both cervix and uterus; Z90.49 Acquired absence of other specified parts of digestive tract
CPT/HCPCS: 99282

== ENCOUNTER → 2023-09-26 | Outpatient (CLI) | payer MEDICARE, OTHER, SELFPAY ==
--- NOTE | 2023-09-26 18:45 | CT_ITS ---
We are attempting to reach an attending provider to discuss findings. An addendum with communication details will be sent when the communication is complete. EXAM: CT ABDOMEN AND PELVIS WITHOUT AND WITH INTRAVENOUS CONTRAST CLINICAL INDICATION: gross hematuria TECHNIQUE: Helically acquired images were obtained of the abdomen and pelvis without and with intravenous contrast. This CT exam was performed using one or more of the following dose reduction techniques: automated exposure control, adjustment of the mA and/or kV according to patient size, and/or use of iterative reconstruction technique. CONTRAST: IV 100mL Isovue-370 RADIATION DOSE: CTDIvol = 19.07 mGy, DLP = 1694.57 mGy-cm COMPARISON: No relevant prior studies available. FINDINGS: LOWER THORAX: Unremarkable. Lung bases are clear. No cardiomegaly. No significant pericardial effusion. ABDOMEN: LIVER: Unremarkable. Homogeneous. No focal mass. GALLBLADDER AND BILE DUCTS: Unremarkable. No calcified gallstones. No gallbladder distention or wall edema. No intra- or extrahepatic biliary ductal dilation. PANCREAS: Unremarkable. No focal cystic or solid mass. SPLEEN: Unremarkable. Normal size without focal cystic or solid mass. ADRENALS: Unremarkable. No nodules. KIDNEYS AND URETERS: Unremarkable. Normal renal size and position. No stones or hydronephrosis in both kidneys. Normal and symmetrical nephrograms. STOMACH AND BOWEL: Surgical sutures in the rectum. No suspicious mass along the colon. Mild gastric gaseous distention. No focal inflammatory change. PELVIS: APPENDIX: Nonvisualization of the appendix but no secondary signs of acute appendicitis. BLADDER: Unremarkable. REPRODUCTIVE: Postsurgical absence of the uterus and ovaries. ABDOMEN and PELVIS: INTRAPERITONEAL SPACE: Pneumoperitoneum overlying the right lower anterior abdominal wall worrisome for perforated bowel. No ascites. BONES/JOINTS: Grade 1 degenerative anterolisthesis of L4 on L5 with moderate L4-L5 disc space height narrowing. Pronounced at L3-L4 degenerative disc space height narrowing with endplate sclerosis and degenerative vacuum phenomenon. No lytic or blastic lesions. SOFT TISSUES: Unremarkable. No discrete abdominal or pelvic wall hernia. VASCULATURE: Unremarkable. Abdominal aorta is non-dilated. LYMPH NODES: Unremarkable. No enlarged lymph nodes. CT/CT Abd/Pelvis W/WO Contrast IMPRESSION: 1. Pneumoperitoneum overlying the right lower hepatic lobe surface. This is worrisome for perforated bowel unless there has been recent laparoscopy. 2. Surgical sutures in the rectum but no suspicious mass along the rectum and the remainder of the colon. 3. No ascites. 4. No CT evidence of stones or hydronephrosis in both kidneys. 5. No CT evidence of urinary bladder wall mass or bladder calculus. 6. Grade 1 degenerative anterolisthesis of L4 on L5. Electronically Signed: Kris Gaffney MD at 11:42 EDT ,
[2023-09-26 18:59] LABS: CREATININE FINGERSTICK < 1.0 mg/dL (0.55-1.02); EGFR FINGERSTICK > 60.0000 mL/min (>60)
== END | disposition home or self-care (01) ==
LOC: CT 18:35
PROVIDERS: PCP Family Medicine; Referring Provider Urology; Visit Provider Urology
DX: Z01.812 Encounter for preprocedural laboratory examination (principal); R31.0 Gross hematuria; N32.81 Overactive bladder; R10.9 Unspecified abdominal pain
CPT/HCPCS: 74178; Q9967

== ENCOUNTER 2024-01-03 07:21 | Emergency (ER) | payer MEDICARE, OTHER, SELFPAY ==
[2024-01-03 07:22] VITALS: BP 139/85; PULSE 88; RESP 16; TEMP 37.1; O2SAT 99; BMI 24.3
[2024-01-03 07:25] VITALS: BP 139/85; PULSE 88; RESP 16; TEMP 37.1; O2SAT 98
--- NOTE | 2024-01-03 07:37 | RAD_ITS ---
STUDY: X-RAY CHEST REASON FOR EXAM: Female, 73 years old. Fever . Patient is on chemotherapy. TECHNIQUE: PA and lateral views of the chest. COMPARISON: Comparison is made with prior study May 20, 2015. FINDINGS: Surgical clips are seen in the left axilla and overlying the left breast. Hyperinflation. The lungs are clear. No pulmonary infiltrate is seen. There is no demonstrated pleural abnormality. Normal size heart. Normal mediastinum and herson. Normal visualized pulmonary arteries. There is atherosclerotic tortuosity of the aortic arch and descending thoracic aorta. There are degenerative changes of the visualized thoracic spine. Normal visualized ribs, clavicles, and shoulders. There is no demonstrated abnormality of the visualized soft tissue structures of the upper abdomen. RAD/Chest PA and Lateral IMPRESSION: Hyperinflation. No acute infiltrate is seen. Electronically Signed: Iban Baez MD at 9:41 EDT ,
--- NOTE | 2024-01-03 07:37 | EX.ED.DYSGE1 ---
HPI History of Present Illness Chief Complaint: Fever Informant: patient and family Narrative Narrative: 73-year-old female brought to the emergency room by family out of concern for fever. Patient currently undergoing chemotherapy with [facility] for breast cancer. She is a patient of Dr. Thurston. Patient states that she got her first chemotherapy about 3 weeks ago and her second chemotherapy on Saturday. She does not believe that she is neutropenic. She states that Saturday she was doing well Saturday developed some anorexia. Last night around midnight she developed temperature of 100.5-100.9. She spoke with the on-call doctor who advised her to come to emergency. She states that she does recall on Saturday having some incontinence but none since. She denies any cough sore throat mouth pain runny nose earache or rashes. She does not have a port. She notes the IV site on her right hand looks fine. Triage temperature orally 98.8. [facility] Medical History Nonrheumatic mitral (valve) prolapse Diverticulitis Non-rheumatic tricuspid valve insufficiency Pure hypercholesterolemia Essential hypertension Chest pain, precordial Chest pain, unspecified Palpitations Nonrheumatic mitral valve prolapse Hypertension Hyperlipidemia Home Medications ?Medication ?Instructions ?Recorded ?Last Taken ?Type acetaminophen 500 mg capsule 500 mg PO Q6H PRN Pain 07/13/19 Unknown History aspirin 81 mg tablet,delayed 81 mg PO DAILY 07/13/19 Unknown History release (Adult Low Dose Aspirin) [id number]-bbhtkhxefalju-vdnwdfrr 1 cap PO Q6H PRN Migraine Headache 07/13/19 Unknown History 50 mg-300 mg-40 mg capsule multivitamin 1 tab PO DAILY 07/13/19 Unknown History zinc 50 mg tablet (Chelated Zinc) 50 mg PO DAILY 07/13/19 Unknown History calcium citrate malate-vitamin D3 1 tab PO BID 09/11/21 Unknown History 500 mg-200 unit tablet atorvastatin 10 mg tablet 10 mg PO QHS #90 tabs 04/22/23 Unknown Rx metoprolol succinate 50 mg 50 mg PO DAILY #90 tabs 04/22/23 Unknown Rx tablet,extended release 24 hr Allergy/AdvReac Type Severity Reaction Status Date / Time adhesive tape Allergy Rash Verified 01/03/24 07:25 Tetracyclines Allergy Rash Verified 01/03/24 07:25 Family History Father CAD (coronary artery disease) HX CABG Afib HX ablation x2 Hypertension Diabetes Sister Myocardial infarction Surgical History History of partial colectomy (~04/2021) HX: benign breast biopsy History of hysterectomy History of tonsillectomy (~1956) Social History Smoking Status: Never smoker alcohol intake: never substance use type: does not use caffeine: Yes Type: carbonated beverages what type of physical activity do you participate in: walking frequency: daily duration: < 15 minutes/day seatbelt use: always do you feel safe at home: Yes ROS ROS ED Constitutional Constitutional ED: Reports fever(s); Denies chills or weight loss Eyes Eyes: Denies change in vision or diplopia ENT ENT ED: Reports other Details: No mouth pain ; Denies ear pain, rhinorrhea or sore throat Cardiovascular Cardiovascular: Denies chest pain, orthopnea, palpitations or racing heartbeat Respiratory/Chest Respiratory/Chest: Denies cough, dyspnea or orthopnea Gastrointestinal Gastrointestinal: Denies abdominal pain, diarrhea, nausea or vomiting Genitourinary Genitourinary ED: Reports other Details: Incontinence 2 days ago ; Denies dysuria, hematuria or urinary frequency Musculoskeletal Musculoskeletal: Denies arthralgias, back pain, myalgias or neck pain Integumentary Denies abscess or rash Neurologic Neurologic: Denies headache(s), paresthesias or weakness Psychiatric Psychiatric: Denies anxiety, depression, suicidal ideation or suicidal thoughts Endocrine Endocrinology: Denies polydipsia, polyphagia or polyuria Allergic/Immunologic Allergic/Immunologic ED: Denies mouth swelling, tongue swelling or urticaria EXAM Physical Exam Const Vital Signs: 01/03/24 07:22 01/03/24 07:25 01/03/24 07:36 Temperature 98.8 F 98.8 F Temperature Source Oral Oral Pulse Rate 88 88 Respiratory Rate 16 16 Respiratory Effort Normal Non-Labored Respiratory Pattern Normal Blood Pressure 139/85 H 139/85 H Blood Pressure Mean 103 103 Pulse Ox 99 98 Oxygen Delivery Method Room Air Room Air 01/03/24 08:24 01/03/24 10:01 Temperature 98.7 F 98.4 F Temperature Source Oral Pulse Rate 84 81 Respiratory Rate 16 16 Respiratory Effort Respiratory Pattern Blood Pressure 128/92 H 133/74 H Blood Pressure Mean 104 93 Pulse Ox 99 98 Oxygen Delivery Method Room Air Positive well nourished and well developed General Appearance ED: well developed HEENT Reports normocephalic, head/scalp atraumatic and moist mucous membranes HEENT Narrative: No evidence of thrush. No mouth sores noted. Eyes PERRL and EOMs intact bilaterally Neck no lymphadenopathy, supple and no JVD Resp normal respiratory effort and clear to auscultation bilaterally Cardio regular rate, regular rhythm and no murmurs GI normal to inspection, nondistended, normoactive bowel sounds and non-tender Palpation: soft Back/Spine no CVA tenderness and normal ROM Extremity normal to inspection Extremity Narrative: Right hand IV site without erythema or swelling General Extremety ED: Negative for edema General Extremity: Negative for edema Neuro oriented x3 and CN's II-XII intact bilaterally Sensorium / Orientation: alert Motor Exam: strength 5/5 throughout Psych mental status grossly normal Mood & Affect: Negative for depressed or tearful Skin no rashes or lesions noted and no wounds MDM MDM MDM Narrative Medical decision making narrative: Differential diagnosis includes but not limited to viral syndrome differential diagnosis includes but not limited to viral syndrome UTI pneumonia sepsis bacteremia Patient clinically appears well. Patient's white count is 20.9 and she did have Neulasta per her oncologist. COVID influenza RSV swabs are negative urinalysis negative my independent interpretation the chest x-ray is no acute process. Lactic acid normal is normal at 1.1 normal LFTs BMP within normal limits. Patient remains afebrile. I discussed the case with oncology. Should be discharged home with supportive care continue to monitor return if worsening or concerns. History & Record Review Discussion w/independent historian: Patient and Family Lab Data Attestation: I reviewed the patient's lab results. Labs: Laboratory Results - last 24 hr 01/03/24 01/03/24 01/03/24 08:06 08:36 08:41 WBC 20.9 H RBC 4.46 Hgb 13.7 Hct 41.3 MCV 92.6 MCH 30.7 MCHC 33.2 RDW Std Deviation 48.9 H RDW Coeff of Hipolito 14.4 Plt Count 245 MPV 10.7 Neut % (Auto) Not Reportable Absolute Neuts (auto) 20.1 H Absolute Lymphs (auto) 0.83 Total Counted 100 Neutrophils % (Manual) 92 H Band Neutrophils % 4 Lymphocytes % (Manual) 4 L Platelet Estimate ADEQUATE RBC Morphology NORM C+C PT Cancelled 13.9 INR Cancelled 1.1 APTT Cancelled 28.5 Sodium 138 Potassium 3.7 Chloride 107 Carbon Dioxide 25.0 Anion Gap 6 BUN 16 Creatinine 0.85 Estim Creat Clear Calc 63.44 Est GFR (MDRD) Af Amer 84 Est GFR (MDRD) Non-Af 70 BUN/Creatinine Ratio 18.7 Glucose 96 Lactic Acid 1.1 Calcium 8.9 Phosphorus 2.8 Magnesium 2.1 Total Bilirubin 0.80 Direct Bilirubin 0.25 AST 18 ALT 23 Alkaline Phosphatase 113 Total Protein 6.7 Albumin 3.6 Globulin 3.1 Urine Color Yellow Urine Clarity Clear Urine pH 6.0 Ur Specific [place] 1.015 Urine Protein 15 H Urine Glucose (UA) Normal Urine Ketones Negative Urine Occult Blood 25 H Urine Nitrite Negative Urine Bilirubin Negative Urine Urobilinogen Normal Ur Leukocyte Esterase 25 H Urine RBC 0 SEEN Urine WBC 0-5 SEEN Ur Squamous Epith Cells 0-5 SEEN Urine Bacteria 0 SEEN Urine Mucus 0 SEEN Radiography Diagnostic Testing: Clinical Impression(s) from Imaging Studies Chest X-Ray 01/03/24 07:37 IMPRESSION: Hyperinflation. No acute infiltrate is seen. Electronically Signed: Iban Beaz MD at 9:41 EDT , Management Discussion w/another healthcare provider: [facility] [employer] (Dr. Moran) Discharge Plan Triage Chief Complaint: Fever ED Provider: Stephen Barajas Dx/Rx/DC Orders Clinical Impression: Breast cancer, Pyrexia Prescriptions: No Action calcium citrate malate-vit D3 500-200 mg-unit tablet 1 tab PO BID aspirin [Adult Low Dose Aspirin] 81 mg tablet,delayed release (DR/EC) 81 mg PO DAILY zinc [Chelated Zinc] 50 mg tablet 50 mg PO DAILY uirhffpzpw-uheayewaodorq-tjbv 50-300-40 mg capsule 1 cap PO Q6H PRN (Reason: Migraine Headache) acetaminophen 500 mg capsule 500 mg PO Q6H PRN (Reason: Pain) multivitamin Tablet 1 tab PO DAILY Patient Comments: multivitamin metoprolol succinate 50 mg tablet extended release 24 hr 50 mg PO DAILY Qty: 90 3RF atorvastatin 10 mg tablet 10 mg PO QHS Qty: 90 3RF Primary Care Provider: Willie Marques Referrals: Glen Thurston MD [Med Staff - Active Staff] - Keep Dannielle appointment Willie Marques MD [Primary Care Provider] - Print Language: Mohawk Disposition Disposition: Home, Self Care Discharge Date/Time: 01/03/24 10:04
[2024-01-03 08:20] LABS: Hematocrit 41.3 % (37-47); Hemoglobin 13.7 g/dL (12.0-15.0); Mean Corp Hgb Conc 33.2 g/dL (32-36); Mean Corpuscular Hgb 30.7 pg (27.0-32.0); Mean Corpuscular Volume 92.6 fL (81-99); Mean Platelet Vol. 10.7 fl (6.2-12.0); POSITIVE COUNT YES; POSITIVE DIFFERENTIAL YES; POSITIVE MORPHOLOGY YES; Platelet Count 245 K/mm3 (150-450); RBC Distribution Width CV 14.4 % (11.6-14.6); RBC Distribution Width SD 48.9 fl (35.1-43.9); Red Blood Count 4.46 M/mm3 (4.2-5.4); White Blood Count 20.9 K/mm3 (4.4-11.0)
[2024-01-03 08:23] LABS: Differential Indicated MANUAL DIFF
[2024-01-03 08:24] VITALS: BP 128/92; PULSE 84; RESP 16; TEMP 37.1; O2SAT 99
[2024-01-03 08:41] LABS: AST(SGOT) 18 U/L (15-37); Alanine Aminotransfer ALT/SGPT 23 U/L (13-56); Albumin, Serum 3.6 g/dL (3.2-5.0); Alkaline Phosphatase 113 U/L (45-117); Anion Gap 6 (5-15); BUN 16 mg/dL (7-18); BUN/Creat Ratio 18.7 RATIO (10-20); Bilirubin, Direct 0.25 mg/dL (0.00-0.30); Calcium,Total 8.9 mg/dL (8.5-10.1); Chloride 107 mmol/L (98-107); Creatinine, Serum 0.85 mg/dL (0.55-1.02); EST Glomerular Filtration Rate 70 mL/min (>60); Est Glom Filt Rate - Afr Amer 84 mL/min (>60); Estimated Creatinine Clearance 63.44 ml/min; Globulin 3.1 g/dL (2.2-4.2); Glucose 96 mg/dL (74-106); Magnesium 2.1 mg/dL (1.6-2.6); Potassium 3.7 mmol/L (3.5-5.1); Protein, Total 6.7 g/dL (6.4-8.2); Sodium Level 138 mmol/L (136-145)
[2024-01-03 08:42] LABS: Bacteria 0 SEEN /hpf (None Seen); Mucous, Urine 0 SEEN /hpf (<or=2+); Red Blood Cells-Urine 0 SEEN /hpf (0-5)
[2024-01-03] MEDS: 0.9% Normal Saline (1000mL) 1,000 ML 999 ML IV (08:45)
[2024-01-03 08:47] LABS: Lymphocyte 4 % (19-41); Neutrophil-Band 4 % (0-5); Neutrophil-Segmented 92 % (47-70); Total Cells Counted 100 (MANUAL DIFF)
[2024-01-03 08:47] LABS: Color, Urine Yellow (Yellow); Glucose, Dipstick Normal (Normal); Ketone-Dipstick Negative (Negative); Leukocyte Esterase-Dipstick 25 /ul (Negative); Nitrite-Dipstick Negative (Negative); Occult Blood-Urine 25 /ul (Negative); Protein-Dipstick 15 mg/dl (Negative); Specific Gravity, Urine 1.015 (1.002-1.030); Urine Bilirubin Dipstick Negative (Negative); Urine Clarity Clear (Clear); Urine Urobilinogen Normal (Normal)
[2024-01-03 08:48] LABS: Absolute Neutrophil Count 20.1 X10^3/uL (2.0-7.7); Phosphorus 2.8 mg/dL (2.5-4.9); Platelet Estimate ADEQUATE (ADEQ); Red Cell Morphology NORM C+C NORMAL (NORM C&C)
[2024-01-03 08:49] LABS: Absolute Lymphocyte Count 0.83 X10^3/uL (0.83-4.51)
[2024-01-03 08:51] LABS: Lactic Acid 1.1 mmol/L (0.4-1.9)
[2024-01-03 08:53] LABS: Squamous Epithelial Cells - UA 0-5 SEEN /hpf (5-10); White Blood Cells 0-5 SEEN /hpf (0-5)
[2024-01-03 08:58] LABS: International Normalized Ratio 1.1; Prothrombin Time (Protime)PT. 13.9 SECONDS (11.7-14.9)
[2024-01-03 08:59] LABS: Partial Thromboplast Time 28.5 Seconds (24.1-36.2)
[2024-01-03 10:01] VITALS: BP 133/74; PULSE 81; RESP 16; TEMP 36.9; O2SAT 98
== END 2024-01-03 10:04 | disposition home or self-care (01) ==
PROVIDERS: Emergency Provider Emergency Medicine; PCP Family Medicine; Visit Provider Emergency Medicine
DX: C50.919 Malignant neoplasm of unspecified site of unspecified female breast (principal); R50.9 Fever, unspecified; E78.00 Pure hypercholesterolemia, unspecified; I10 Essential (primary) hypertension
CPT/HCPCS: 71046; 80048; 80076; 81001; 83605; 83735; 84100; 85025; 85610; 85730; 87040; 87086; 87631; 96360; 99282; J7030; A4216

== ENCOUNTER → 2024-04-23 | Outpatient (CLI) | payer MEDICARE, OTHER, SELFPAY ==
--- NOTE | 2024-04-23 12:38 | ECHODONC_ITS ---
Reason For Study: Antineoplastic Chemo Procedure This was a 2D Doppler, Color Flow transthoracic echocardiogram. Myocardial strain analysis was performed in this exam to aid in the assessment of cardiac function. Exam performed in department. Left Ventricle Normal left ventricle. The global longitudinal strain = -20.8 % (normal). The left ventricular ejection fraction is 60 %. Stage 1 diastolic dysfunction. No regional wall motion abnormalities noted. Right Ventricle Normal RV size. Normal systolic function. Aortic Valve Trisinus/trileaflet aortic valve. Pulmonic Valve Normal pulmonic valve. Great Vessels Normal aortic root. The pulmonary artery is normal size. Normal inferior vena cava. Pericardium/Pleural No pericardial effusion. MMode/2D Measurements & Calculations LVIDd: 3.8 cm IVSd: 1.1 cm Ao root diam: 3.4 cm LVIDs: 2.0 cm LVPWd: 0.75 cm RVDd: 3.7 cm FS: 46.5 % LAV(MOD-bp): 25.0 ml SV(MOD-sp4): 39.3 ml LVAd ap4: 21.3 cm2 LAV(MOD-bp) Indexed: 13.2 ml/m2 LVLd ap4: 7.0 cm SI(MOD-sp4): 20.8 ml/m2 LAV(MOD-sp2): 28.4 ml EDV(MOD-sp4): 53.4 ml LAV(MOD-sp4): 22.0 ml EDV(sp4-el): 55.5 ml LVAs ap4: 9.8 cm2 LVLs ap4: 5.8 cm ESV(MOD-sp4): 14.1 ml ESV(sp4-el): 14.2 ml EF(MOD-sp4): 73.7 % EF(sp4-el): 74.5 % SV(sp4-el): 41.4 ml LA A4 area: 11.2 cm2 LA dimension(2D): 2.9 cm TAPSE: 1.8 cm RA A4 area: 14.9 cm2 Time Measurements MV dec time: 0.31 sec Doppler Measurements & Calculations MV E max girma: 72.2 cm/sec Lat Peak E' Girma: 7.7 cm/sec Med Peak E' Girma: 7.9 cm/sec MV A max girma: 78.8 cm/sec E/E' lat: 9.4 E/E' med: 9.1 MV E/A: 0.92 MV V2 max: 85.4 cm/sec MV P1/2t max girma: 85.4 cm/sec Ao V2 max: 129.9 cm/sec MV max P.9 mmHg MV P1/2t: 95.3 msec Ao max P.7 mmHg MV V2 mean: 43.0 cm/sec MV dec slope: 262.5 cm/sec2 Ao V2 mean: 91.6 cm/sec MV mean P.93 mmHg Ao mean P.8 mmHg MV V2 VTI: 24.9 cm MVA(P1/2t): 2.3 cm2 Ao V2 VTI: 31.6 cm AV (velocity ratio): 0.99 LV V1 max: 133.0 cm/sec PA V2 max: 72.5 cm/sec LV V1 max P.1 mmHg LV V1 mean P.6 mmHg LV V1 mean: 88.8 cm/sec LV V1 VTI: 31.3 cm ECHO/ONC Echo Complete Interpretation Summary Normal left ventricle. The global longitudinal strain = -20.8 % (normal). The left ventricular ejection fraction is 60 %. Stage 1 diastolic dysfunction. Structurally normal valves. Ordering Physician: Zack Randle Referring Physician: Zack Randle Performed By: Jason Mosher RCS
== END | disposition home or self-care (01) ==
PROVIDERS: PCP Family Medicine; Referring Provider Internal Medicine Cardiovascular Disease; Visit Provider Internal Medicine Cardiovascular Disease
DX: I34.0 Nonrheumatic mitral (valve) insufficiency (principal)
CPT/HCPCS: 93306; 93356

== ENCOUNTER → 2024-10-08 | Outpatient (CLI) | payer MEDICARE, OTHER, SELFPAY ==
[2024-10-08 15:04] LABS: AST(SGOT) 22 U/L (<=31); Alanine Aminotransfer ALT/SGPT 21 U/L (<=34); Albumin, Serum 4.3 g/dL (3.4-4.8); Alkaline Phosphatase 95 U/L (35-104); Bilirubin, Direct 0.11 mg/dL (0.00-0.30); Cholesterol 161 mg/dL (<=200); Globulin 2.6 g/dL (2.2-4.2); Low Density Lipoprotein Calc. 67 mg/dL; Triglycerides 198 mg/dL; Very Low Density Lipoprotein 40 mg/dL (5-40); cholesterol:hdl ratio screen 2.95
== END | disposition home or self-care (01) ==
LOC: LAB 12:18
PROVIDERS: PCP Family Medicine; Referring Provider Physician Assistant Medical; Visit Provider Physician Assistant Medical
DX: E78.00 Pure hypercholesterolemia, unspecified (principal)
CPT/HCPCS: 36415; 80061; 80076

== ENCOUNTER → 2024-10-19 | Outpatient (CLI) | payer MEDICARE, OTHER, SELFPAY ==
--- OUTSIDE RECORDS SUMMARY | 2024-10-19 06:14 | XMS RPT_ITS | CCD ---
Author Organization [facility] Care Team Providers Care Clothes Drier Assembler Name Role Phone [facility] Nurse Unavailable Unavailable Luna Cope MD Primary Care Provider Dr. Luna Cope Primary Care Provider Dr. Luna Cope Referring Provider Roof DEVOPS DEVELOPER, DEVOPS DEVELOPERBladimir Almaraz Attending Provider Luna Cope MD Primary Care Provider Luna Cope MD Primary Care Provider Gina BEEBE, Crystal Unavailable Unavailable Crystal Fuentes RN Unavailable Unavailable Luna Cope MD Primary Care Provider Ignacio GRAVES, Benson Unavailable Martha BEEBE, Harleen Unavailable Karena GRAVES, Glen Unavailable Brii Fernández RN Unavailable iGna BEEBE, Crystal Unavailable Unavailable Haagen DIESEL ENGINE ENGINEER.SEAMUS Kimberley Unavailable Suppan DIESEL ENGINE ENGINEER.SEAMUS, Pamela A Unavailable [phone] Suppan DIESEL ENGINE ENGINEER.SEAMUS, Pamela A Unavailable Suppan DIESEL ENGINE ENGINEER.SEAMUS, Pamela A Unavailable EVITA SANCHEZ Admitting Unavailable EVITA SANCHEZ Attending Unavailable PK RAMSEY Referring Unavailable LUNA COPE Primary Care Unavailable EVITA SANCHEZ Attending Unavailable LUNA COPE Referring Unavailable LUNA COPE Primary Care Unavailable PK RAMSEY Referring Unavailable LUNA COPE Primary Care Unavailable EVITA SANCHEZ Admitting Unavailable EVITA SANCHEZ Attending Unavailable PRISCA, LUNA J Primary Care Unavailable BENSON PIERRE Attending Unavailable PRISCA, LUNA Marinelli Primary Care Unavailable PRISCA, LUNA J Primary Care Unavailable PRISCA, LUNA J Primary Care Unavailable PRISCA, LUNA J Primary Care Unavailable GLEN IGLESIAS Attending Unavailable PRISCA, LUNA Marinelli Primary Care Unavailable LAYLA NORRIS Attending Unavailable PRISCA, LUNA J Primary Care Unavailable DANIELEVITA Attending Unavailable PRISCA, LUNA J Primary Care Unavailable PK RAMSEY Attending Unavailable EVITA SANCHEZ Referring Unavailable PRISCA, LUNA J Primary Care Unavailable PRISCA, LUNA J Primary Care Unavailable GLEN IGLESIAS Attending Unavailable PRISCA, LUNA Marinelli Primary Care Unavailable PRISCA, LUNA J Primary Care Unavailable PRISCA, LUNA J Primary Care Unavailable PRISCA, LUNA Marinelli Primary Care Unavailable BENSON PIERRE Attending Unavailable PRISCA, LUNA Marinelli Primary Care Unavailable PRISCA, LUNA Marinelli Primary Care Unavailable PRISCA, LUNA Marinelli Primary Care Unavailable PRISCA, LUNA Marinelli Primary Care Unavailable PRISCA, LUNA Marinelli Primary Care Unavailable PRISCA, LUNA Marinelli Attending Unavailable PRISCA, LUNA Marinelli Primary Care Unavailable ROBERTO ULLOA Attending Unavailable PK RAMSEY Referring Unavailable PRISCA, LUNA Marinelli Primary Care Unavailable FREDDIE ROCHA Attending Unavailable PK RAMSEY Referring Unavailable PRISCA, LUNA Marinelli Primary Care Unavailable PK RAMSEY Attending Unavailable PRISCA, LUNA Marinelli Primary Care Unavailable PRISCA, LUNA Marinelli Primary Care Unavailable PRISCA, LUNA Marinelli Primary Care Unavailable BENSON PIERRE Attending Unavailable PRISCA, LUNA Marinelli Primary Care Unavailable BENSON PIERRE Attending Unavailable BENSON PIERRE Referring Unavailable PRISCA, LUNA Marinelli Primary Care Unavailable GILDARDO NERI Attending Unavailable PRISCA, LUNA Marinelli Primary Care Unavailable AUDIE HEMPHILL Attending Unavailable GLEN IGLESIAS Referring Unavailable PRISCA, LUNA Marinelli Primary Care Unavailable PRISCA, LUNA Marinelli Attending Unavailable PRISCA, LUNA Marinelli Primary Care Unavailable PRISCA, LUNA Marinelli Referring Unavailable PRISCA, LUNA Marinelli Primary Care Unavailable PK RAMSEY Referring Unavailable PRISCA, LUNA Marinelli Primary Care Unavailable PRISCA, LUNA Marinelli Attending Unavailable PRISCA, LUNA Marinelli Primary Care Unavailable PRISCA, LUNA Marinelli Attending Unavailable PRISCA, LUNA Marinelli Primary Care Unavailable PRISCA, LUNA Marinelli Referring Unavailable PRISCA, LUNA Marinelli Primary Care Unavailable BENSON PIERRE Attending Unavailable PRISCA, LUNA Marinelli Primary Care Unavailable PRISCA, LUNA Marinelli Primary Care Unavailable PRISCA, LUNA Marinelli Primary Care Unavailable PRISCA, LUNA Marinelli Primary Care Unavailable PRISCA, LUNA Marinelli Primary Care Unavailable PRISCA, LUNA Marinelli Primary Care Unavailable PRISCA, LUNA Marinelli Primary Care Unavailable GLEN IGLESIAS Referring Unavailable PRISCA, LUNA Marinelli Primary Care Unavailable PRISCA, LUNA Marinelli Primary Care Unavailable AUDIE HEMPHILL Attending Unavailable PRISCA, LUNA Marinelli Primary Care Unavailable PRISCA, LUNA Marinelli Primary Care Unavailable PK RAMSEY Referring Unavailable PRISCA, LUNA Marinelli Primary Care Unavailable GRIJALVA, DON L Referring Unavailable PRISCA, LUNA Marinelli Primary Care Unavailable EVITA SANCHEZ Referring Unavailable PRISCA, LUAN Marinelli Primary Care Unavailable EVITA SANCHEZ Attending Unavailable PRISCA, LUNA Marinelli Primary Care Unavailable PRISCA, LUNA Marinelli Primary Care Unavailable PRISCA, LUNA Marinelli Primary Care Unavailable PRISCA, LUNA Marinelli Primary Care Unavailable PRISCA, LUNA Marinelli Primary Care Unavailable BENSON PIERRE Attending Unavailable BENSON PIERRE Attending Unavailable PRISCA, LUNA Marinelli Primary Care Unavailable PRISCA, LUNA Marinelli Referring Unavailable PRISCA, LUNA Marinelli Primary Care Unavailable BENSON PIERRE Attending Unavailable PRISCA, LUNA Marinelli Primary Care Unavailable DON GRIJALVA L Referring Unavailable PRISCA, LUNA Marinelli Primary Care Unavailable LIVAN, SERINE Referring Unavailable PRISCA, LUNA Marinelli Primary Care Unavailable GLEN IGLESIAS Attending Unavailable DANIELEVITA BECKFORD A Referring Unavailable PRISCA, LUNA Marinelli Primary Care Unavailable BENSON PIERRE Attending Unavailable EVITA SANCHEZ A Referring Unavailable PRISCA, LUNA Marinelli Primary Care Unavailable PRISCA, LUNA Marinelli Primary Care Unavailable LIVAN, SERINE Referring Unavailable PRISCA, LUNA Marinelli Primary Care Unavailable PRISCA, LUNA Marinelli Primary Care Unavailable PRISCA, LUNA Marinelli Primary Care Unavailable PRISCA, LUNA Marinelli Primary Care Unavailable GLEN IGLESIAS Attending Unavailable PRISCA, LUNA Marinelli Primary Care Unavailable PRISCA, LUNA Marinelli Primary Care Unavailable PRISCA, LUNA Marinelli Primary Care Unavailable PRISCA, LUNA Marinelli Primary Care Unavailable AUDIE HEMPHILL Attending Unavailable PRISCA, LUNA Marinelli Primary Care Unavailable BENSON PIERRE Attending Unavailable PRISCA, LUNA Marinelli Primary Care Unavailable PRISCA, LUNA Marinelli Primary Care Unavailable PRISCA, LUNA Marinelli Primary Care Unavailable PRISCA, LUNA Marinelli Primary Care Unavailable [place] Dr. Luna GRAVES Primary Care Provider [phone] Dr. Luna Cope MD Referring Provider Tahira Shaikh Attending Provider [phone] Tahira Shaikh Referring Provider [phone] [facility] Primary Care Unavailable Tahira Shaikh Attending Unavail able Tahira Shaikh Referring Unavail able Jer, [place] Referring Unavailable [place], Luna Primary Care Unavailable Jer, [place] Attending Unavailable [place], Luna Primary Care Unavailable Layla Barajas Attending Unavailable [place], Luna Primary Care Unavailable Tahira Shaikh Attending Unavail able Tahira Shaikh Referring Unavail able [place], Luna Referring Unavailable Tahira Shaikh Attending Unavail able [place], Luna Primary Care Unavailable [place], Luna Primary Care Unavailable Jer, Zack Attending Unavailable [place], Luna Primary Care Unavailable [facility] Referring Unavailable Jer, [place] Attending Unavailable Allergies Allergy Classification Reported Allergen(s) Allergy Type Date of Onset Reaction(s) Facility (1 source) tetracycline drug allergy 1 [facility] Work Phone: (1 source) BANDAGE ADHESIVE drug allergy 6 [facility] Work Phone: (20 sources) Tetracycline (class of antibiotic); Translations: [TETRACYCLINES] Propensity to adverse reactions 5 [facility] Work Phone: (20 sources) adhesive in bandaids [Other] Propensity to adverse reactions 7 [facility] Work Phone: (20 sources) Tetracycline (class of antibiotic) Propensity to adverse reactions 5 [facility] Work Phone: (5 sources) Adhesive Tape; Translations: [adhesive tape] Allergy to substance 2 [facility] (3 sources) Tetracyclines Allergy to substance 2 [facility] (20 sources) Adhesive agent; Translations: [ADHESIVE] Drug Allergy 4 [facility] (1 source) Tetracyclines Drug allergy (disorder) 5 [facility] Medications Current Medications Medication Drug Class(es) Dates Sig (Normalized) Sig (Original) acetaminophen 325 mg oral tablet (20 sources) Start: 04-05-2021 take 2 tablets by mouth every four hours as needed acetaminophen (TYLENOL) 325 mg tablet Take 2 tablets by mouth every 4 hours as needed for pain. 04/05/2021 Active Start: 07-13-2019 take 1 capsule by mo uth every six hours as needed for pain Acetaminophen 500 mg capsule Active 500 mg PO EVERY 6 HOURS as needed for Pain July 13, 2019 12:00am Comment on above: Take 2 tablets by mo uth every 4 hours as needed for pain. acetaminophen 325 mg / butalbital 50 mg / caffeine 40 mg oral tablet (20 sources) Barbiturate, Central Nervous System Stimulant, Methylxanthine Start: End: take 1 tablet by mouth every six hours as needed for headache and headache acetaminophen 325 mg-caffeine 40 mg-butalbital 50 mg (FIORICET) per tablet Indications: Headache, unspecified headache type Take 1 tablet by mouth every 6 hours as needed (headache) for up to 30 days. 20 tablet 05/12/2024 06/11/2024 Active Start: 09-06-2023 End: 10-06-2023 take 1 tablet by mouth every six hours as needed for headache and headache acetaminophen 325 mg-caffeine 40 mg-butalbital 50 mg (FIORICET) per tablet Indications: Headache, unspecified headache type Take 1 tablet by mouth every 6 hours as needed (headache) for up to 30 days. 20 tablet 0 09/06/2023 10/06/2023 Active Start: 04-30-2023 End: 05-30-2023 take 1 tablet by mouth every six hours as needed for headache and headache acetaminophen 325 mg-caffeine 40 mg-butalbital 50 mg (FIORICET) per tablet Indications: Headache, unspecified headache type Take 1 tablet by mouth every 6 hours as needed (headache) for up to 30 days. 20 tablet 0 04/30/2023 05/30/2023 Active Start: 10-25-2021 End: 11-23-2022 take 1 tablet by mouth every six hours as needed for headache and headache acetaminophen 325 mg-caffeine 40 mg-butalbital 50 mg (FIORICET) per tablet Indications: Headache, unspecified headache type Take 1 tablet by mouth every 6 hours as needed (headache). 20 tablet 05/05/2022 11/23/2022 Discontinued Start: 07-13-2019 Butalbital-Aman taminophen-Caff 50-300-40 mg capsule Active 1 NMA PO EVERY 6 HOURS as needed for Migraine Headache July 13, 2019 12:00am Start: 07-13-2019 take 1 capsule by mo uth every six hours Tadptncdxe-Doqppjebxtote-Zwtz Active 1 CAP PO EVERY 6 HOURS July 12, 2019 11:00pm take 1 capsule by mo uth every four hours as needed acetaminophen 300 mg-caffeine 40 mg-butalbital 50 mg (FIORICET) per capsule Take 1 capsule by mouth every 4 hours as needed for headache. Active Comment on above: Take 1 tablet by jean-paul th every 6 hours as needed (headache). Take 1 tablet by jean-paul th every 6 hours as needed (headache) for up to 30 days. acetaminophen 325 mg / HYDROcodone bitartrate 5 mg oral tablet (2 sources) Opioid Agonist Start: 4 End: 4 take 1 tablet by mouth every six hours as needed for pain HYDROcodone-acet aminophen (NORCO) 5-325 mg per tablet Indications: S/P lumpectomy, left breast Take 1 tablet by mouth every 6 hours as needed for pain for up to 3 days. 5 tablet 0 11/12/2023 11/15/2023 Active aspirin 81 mg delayed release oral tablet (20 sources) Nonsteroidal Anti-inflammatory Drug Start: 0 Aspirin (Adult Low Dose Aspirin) 81 mg tablet,delayed release (DR/EC) Active 81 mg PO DAILY July 13, 2019 12:00am Start: 07-24-2010 End: 07-13-2019 take 1 tablet by mouth once daily Aspirin 325 MG tablet Discontinued 325 mg PO DAILY@0800 May 20, 2015 1:00am July 13, 2019 2:53pm Comment on above: Take 81 mg by mouth once daily. Calcium Carbonate / vitamin D3 (20 sources) take 1 tablet by mouth four times daily calcium carbonate/vitamin D3 (CALCIUM 600 + D ORAL) Take 1 tablet by mouth four times daily. Active take 1200 mg by mouth once daily calcium carbonate/vitamin D3 (CALCIUM 600 + D ORAL) Take 1,200 mg by mouth. Active take 1200 mg by mouth once daily calcium carbonate/vitamin D3 (CALCIUM 600 + D ORAL) Take 1,200 mg by mouth. 0 Active Comment on above: Take 1,200 mg by jean-paul . Calcium Citrate Malate-Vit D3 500-200 mg-unit tablet (4 sources) Start: 09-11-2021 Calcium Citrate Malate-Vit D3 500-200 mg-unit tablet Active 1 {tbl} PO TWICE A DAY 0 September 11, 2021 1:47pm Start: 07-02-2018 End: 09-11-2021 Calcium Citrate Malate-Vit D 3 500-200 mg-unit tablet Discontinued 1 {tbl} PO DAILY 0 July 02, 2018 12:00am September 11, 2021 1:49pm calcium citrate malate-vitamin D3 500 mg-200 unit tablet (4 sources) Start: 09-11-2021 take 1 tablet by mouth twice daily calcium citrate malate-vitamin D3 500 mg-200 unit tablet Active 1 TABLET PO TWICE A DAY September 11, 2021 12:47pm Start: 09-11-2021 take 1 tablet by [facility] twice daily calcium citrate malate-vitamin D3 500 mg-200 unit tablet Active 1 TABLET PO TWICE A DAY September 11, 2021 1:47pm Start: 07-02-2018 End: 09-11-2021 take 1 tablet by mouth once daily calcium citrate malate-vitamin D3 500 mg-200 unit tablet Discontinued 1 TABLET PO DAILY July 01, 2018 11:00pm September 11, 2021 12:49pm Start: 07-02-2018 End: 09-11-2021 take 1 tablet by mouth once daily calcium citrate malate-vitamin D3 500 mg-200 unit tablet Discontinued 1 TABLET PO DAILY July 02, 2018 12:00am September 11, 2021 1:49pm cephalexin 500 mg oral capsule (3 sources) Cephalosporin Antibacterial Start: 09-02-2023 End: 09-09-2023 take 1 capsule by mouth twice daily cephALEXin (KEFLEX) 500 mg capsule Take 1 capsule by mouth two times a day for 7 days. 14 capsule 0 09/02/2023 09/09/2023 Active cyclobenzaprine hydrochloride 5 mg oral tablet (20 sources) Muscle Relaxant Start: 12-20-2023 take 1 tablet by mouth every twelve hours as needed cyclobenzaprine (FLEXERIL) 5 mg tablet Take 1 tablet by mouth two times a day as needed. 30 tablet 12/20/2023 Active enteric contrast (will be provided with radiology test) (4 sources) Start: 05-21-2023 End: 05-22-2023 enteric contrast (will be provided with radiology test) Indications: LLQ pain , Left lower quadrant abdominal pain For CT ABD/PEL W IVCON Routine order Administer, As Directed One Time Only, via Oral, Rectal, both Oral and Rectal, Enteric Tube, Stoma or Indwelling Catheter, Enteric Contrast as designated per enteric contrast guidelines 1 Each 0 05/21/2023 05/22/2023 Active Comment on above: For CT ABD/PEL W IVC ON Routine order Administer, As Directed One Time Only, via Oral, Rectal, both Oral and Rectal, Enteric Tube, Stoma or Indwelling Catheter, Enteric Contrast as designated per enteric contrast guidelines iv contrast (will be provided with radiology test) (16 sources) Start: 06-03-2024 End: 06-04-2024 iv contrast (will be provided with radiology test) Indications: IN 11/2024 MRI Breast JINNY Inject, intravenously, once for 1 dose. No IV access, insert saline lock prior to the beginning of sedation, infusion, injection of imaging exam. Discontinue saline lock post exam. If Pt has a central line or IVAD, may access for administration according to line specific nursing protocol. 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 No IV access, insert saline lock prior to the beginning of sedation, infusion, injection of imaging exam. Discontinue saline lock post exam. If Pt has a central line or IVAD, may access for administration according to line specific nursing protocol. Once exam is complete flush line and de-access according to line specific nursing protocol in the MR contrast administration guidelines link 1 Each 11/27/2023 11/28/2023 Active Start: 10-21-2023 End: 10-22-2023 iv contrast (will be provide d with radiology test) Indications: Abnormal finding on breast imaging MRI LT Breast Bx Inject, intravenously, once for 1 dose. No IV access, insert saline lock prior to the beginning of sedation, infusion, injection of imaging exam. Discontinue saline lock post exam. If Pt has a central line or IVAD, may access for administration according to line specific nursing protocol. Once exam is complete flush line and de-access according to line specific nursing protocol in the MR contrast administration guidelines link 1 Each 0 10/21/2023 10/22/2023 Active Start: 10-21-2023 End: 10-22-2023 iv contrast (will be provide d with radiology test) Indications: Abnormal finding on breast imaging MRI RT Breast Bx Inject, intravenously, once for 1 dose. No IV access, insert saline lock prior to the beginning of sedation, infusion, injection of imaging exam. Discontinue saline lock post exam. If Pt has a central line or IVAD, may access for administration according to line specific nursing protocol. Once exam is complete flush line and de-access according to line specific nursing protocol in the MR contrast administration guidelines link 1 Each 0 10/21/2023 10/22/2023 Active Start: 10-09-2023 End: 10-10-2023 iv contrast (will be provide d with radiology test) Indications: Malignant neoplasm of lower-inner quadrant of left breast in female, estrogen receptor negative (HCC) MRI Breast JINNY Inject, intravenously, once for 1 dose. No IV access, insert saline lock prior to the beginning of sedation, infusion, injection of imaging exam. Discontinue saline lock post exam. If Pt has a central line or IVAD, may access for administration according to line specific nursing protocol. Once exam is complete flush line and de-access according to line specific nursing protocol in the MR contrast administration guidelines link 1 Each 0 10/09/2023 10/10/2023 Active Start: 05-21-2023 End: 05-22-2023 iv contrast (will be provide d with radiology test) Indications: LLQ pain , Left lower quadrant abdominal pain CT ABD/PEL -Inject, intravenously, once for 1 dose.No IV access, insert saline lock prior to the beginning of sedation, infusion, injection of imaging exam. Discontinue saline lock post exam. If Pt. has a central line or IVAD, may access for administration according to line specific nursing protocol. Once exam is complete flush line and de-access according to line specific nursing protocol in the CT contrast administration guidelines link. 1 Each 0 05/21/2023 05/22/2023 Active Comment on above: CT ABD/PEL -Inject, intravenously, once for 1 dose.No IV access, insert saline lock prior to the beginning of sedation, infusion, injection of imaging exam. Discontinue saline lock post exam. If Pt. has a central line or IVAD, may access for administration according to line specific nursing protocol. Once exam is complete flush line and de-access according to line specific nursing protocol in the CT contrast administration guidelines link. Multivitamin preparation (4 sources) Start: 07-13-19 take 1 tablet by mouth once daily Multivitamin Active 1 TABLET PO DAILY July 13, 2019 1:53pm Start: 07-13-2019 take 1 tablet by jean-paul th once daily Multivitamin Active 1 TABLET PO DAILY July 13, 2019 2:53pm Start: 05-20-2015 End: 07-13-2019 Multivitamin Discontinued PO DAILY May 20, 2015 12:00am July 13, 2019 1:54pm Start: 05-20-2015 End: 07-13-2019 Multivitamin Discontinued PO DAILY May 20, 2015 1:00am July 13, 2019 2:54pm MULTIVITAMIN TABLET (20 sources) Start: 05-01-2004 take 1 tablet by mouth once daily MULTIVITAMIN TABLET Take 1 tablet by mouth once daily. 0 05/01/2004 Active Start: 05-01-2004 MULTIVITAMIN T ABLET Take one(1) tablet daily. 0 05/01/2004 Active Comment on above: Take one(1) tablet d aily. Multivitamin tablet (2 sources) Start: 07-13-19 20 Multivitamin tablet Active 1 {tbl} PO DAILY July 13, 2019 2:53pm mupirocin 0.02 mg/mg topical ointment (1 source) RNA Synthetase Inhibitor Antibacterial Start: 10-14-19 End: 10-21-19 mupirocin (BACTROBAN) 2 % ointment Apply to affected area three times daily for 7 days. 15 g 0 10/13/2022 10/20/2022 Active Comment on above: Apply to affected ar ea three times daily for 7 days. predniSONE 20 mg oral tablet (7 sources) Start: 10-06-19 End: 10-11-19 take 1 tablet by mouth once daily Prednisone 20 mg tablet Active 20 mg PO daily October 08, 2024 12:00am X 2 more days Start: 09-03-2022 End: 09-08-2022 take 1 tablet by mouth once daily at mealtime predniSONE (DELTASONE) 20 mg tablet Indications: Pain of right hand Take 1 tablet by mouth once daily for 5 days. Take daily with food. 5 tablet 09/03/2022 09/08/2022 Comment on above: Take 1 tablet by jean-paul th once daily for 5 days. Take daily with food. Zinc (20 sources) Start: 07-13-2019 take 1 tablet by mouth once daily Zinc (Chelated Zinc) 50 mg tablet Active 50 mg PO DAILY July 13, 2019 12:00am Start: 07-13-2019 take 1 tablet by jean-paul th once daily Zinc (Chelated Zinc) 50 mg tablet Active 50 MG PO DAILY July 12, 2019 11:00pm Start: 07-13-2019 take 1 tablet by jean-paul th once daily Zinc (Chelated Zinc) 50 mg tablet Active 50 MG PO DAILY July 13, 2019 12:00am take 50 mg by mouth once daily Z INC ORAL Take 50 mg by mouth once daily. Active take 50 mg by mouth once daily Z INC ORAL Take 50 mg by mouth once daily. 0 Active Comment on above: Take 50 mg by mouth once daily. Completed/Discontinued Medications Medication Drug Class(es) Dates Sig (Normalized) Sig (Original) aluminum hydroxide / magnesium hydroxide / simethicone (2 sources) Start: 07-24-2010 take 1 tablet by mouth once daily ANTACID PLUS ANTI-GAS FAST ACT 200-200-20 MG/5ML SUSP One tablet by mouth daily ALUM & MAG HYDROXIDE-SIMETH [id number] Sunitha Odonnell Start: 07-24-2010 End: 11-19-2011 take 1 tablet by mouth once daily ANTACID PLUS ANTI-GAS FAST ACT 200-200-20 MG/5ML SUSP One tablet by mouth daily ALUM & MAG HYDROXIDE-SIMETH [id number] Dimitri Da Silva MD amoxicillin 875 mg / clavulanate 125 mg oral tablet (4 sources) Penicillin-class Antibacterial Start: 12-13-2020 End: 12-20-2020 Amoxicillin-Pot Clavulanate (Augmentin) 875-125 mg tablet Discontinued 1 {tbl} PO THREE TIMES A DAY 30 0 December 13, 2020 12:00am December 20, 2020 12:12pm [id number] -CODEINE (2 sources) Opioid Agonist, Barbiturate, Nonsteroidal Anti-inflammatory Drug, Central Nervous System Stimulant, Methylxanthine Start: 07-24-2010 End: 05-17-2014 ASCOMP-CODEINE 03-153-41-30 MG CAPS As needed [id number]-UVW-LYUN-CO DEINE [id number] Tahira Ortiz PA-C Start: 07-24-2010 ASCOMP-CODEINE 49-216-85-30 MG CAPS As needed HFORXRGXUS-[id number]-OQMS-CODEINE [id number] Sunitha Odonnell atorvastatin 10 mg oral tablet (20 sources) HMG-CoA Reductase Inhibitor Start: 02-29-2012 End: 04-29-2024 take 1 tablet by mouth at bedtime Atorvastatin 10 mg tablet Discontinued 10 mg PO AT BEDTIME 90 3 April 22, 2023 4:49pm April 29, 2024 5:34pm Comment on above: Take 10 mg by mouth once daily. BUTALBITAL-ASPIRIN- CAFFEINE (1 source) Start: 11-17-2012 BUTALBITAL COMPOUND/ASA 50-325-40 MG TABS as need for headache BUTALBITAL-ASPIRIN- CAFFEINE [id number] Dimitri Da Silva MD calcium citrate (2 sources) Start: 11-17-2012 take 1 tablet by mouth once daily CALCIUM CITRATE + TABS One tablet by mouth daily MULTIPLE MINERALS-VITAMINS [id number] Dimitri Da Silva MD Start: 11-17-2012 End: 05-17-2014 take 1 tablet by mouth once daily CALCIUM CITRATE + TABS One tablet by mouth daily MULTIPLE MINERALS-VITAMINS [id number] Tahira Ortiz PA-C ciprofloxacin 500 mg oral tablet (4 sources) Quinolone Antimicrobial Start: 12-20-2020 End: 06-13-2022 take 1 tablet by mouth every twelve hours Ciprofloxacin Hcl (Cipro) 500 mg tablet Discontinued 500 mg PO Q12H 14 0 December 20, 2020 12:00am September 11, 2021 1:48pm coenzyme q10 100 mg oral capsule (2 sources) Start: 11-17-2012 End: 05-17-2014 take 1 tablet by mouth once daily COQ-10 100 MG CAPS One tablet by mouth daily COENZYME Q10 [id number] Dimitri Da Silva MD cycloPHOSphamide 1,158 mg in NaCl 0.9% 332.9 mL (CYTOXAN) (4 sources) Start: 02-13-2024 End: 02-13-2024 1,158 mg (600 mg/m2 1.93 m2 Treatment Plan BSA from Recorded weight), INTRAVENOUS, Administer over 30 Minutes, ONCE, 1 dose, On Gina 02/13/24 at 0930, EXP: 02/14/24 @ 08:15 (room temperature) Hazardous Chemotherapy Drug: Use appropriate PPE. Start: 01-21-2024 End: 01-21-2024 1,158 mg (600 mg/m2 1.93 m2 Treatment Plan BSA from Recorded weight), INTRAVENOUS, Administer over 30 Minutes, ONCE, 1 dose, On e 01/21/24 at 1130, exp 1000 01/23/24 (room temp) Hazardous Chemotherapy Drug: Use appropriate PPE. Start: 12-31-2023 End: 12-31-2023 1,158 mg (600 mg/m2 1.93 m2 Treatment Plan BSA from Recorded weight), INTRAVENOUS, Administer over 30 Minutes, ONCE, 1 dose, On e 12/31/23 at 1130, exp 1600 01/01/24 (room temp) Hazardous Chemotherapy Drug: Use appropriate PPE. Start: 12-10-2023 End: 12-10-2023 1,158 mg (600 mg/m2 1.93 m2 Treatment Plan BSA from Recorded weight), INTRAVENOUS, Administer over 30 Minutes, ONCE, 1 dose, On e 12/10/23 at 1130, Approx Total Volume - Expires: 12/11/23 @ 1000 Hazardous Chemotherapy Drug: Use appropriate PPE. 1 ml dexamethasone phosphate 10 mg/ml injection (20 sources) Corticosteroid Start: 02-13-2024 End: 02-13-2024 10 mg, INTRAVENOUS, ONCE, 1 dose, On Gina 02/13/24 at 0800, Administer over 5 minutes. Start: 01-21-2024 End: 01-21-2024 10 mg, INTRAVENOUS, ONCE, 1 dose, On Sat01/21/24 at 1000, Administer over 5 minutes. Start: 11-27-2023 End: 06-23-2024 dexAMETHasone (DECADRON) 4 m g tablet Indications: Malignant neoplasm of lower-inner quadrant of left breast in female, estrogen receptor negative (HCC) Take 5 tablets 12 and 6 hours prior to chemotherapy treatment. 10 tablet 3 11/27/2023 06/23/2024 Discontinued (Course of therapy completed) dexAMETHasone 10 mg in NaCl 0.9% 50 mL (DECADRON) (2 sources) Start: 12-31-2023 End: 12-31-2023 10 mg, INTRAVENOUS, ONCE, 1 dose, On Sat12/31/23 at 1000, Refrigerate. Start: 12-10-2023 End: 12-10-2023 10 mg, INTRAVENOUS, Administ er over 15 Minutes, ONCE, 1 dose, On Sat12/10/23 at 1000, Refrigerate. diphenhydrAMINE (4 sources) Histamine-1 Receptor Antagonist Start: 02-13-2024 End: 02-13-2024 25 mg, INTRAVENOUS, ONCE, 1 dose, On Sat02/13/24 at 0800 Start: 01-21-2024 End: 01-21-2024 25 mg, INTRAVENOUS, ONCE, 1 dose, On Sat01/21/24 at 1000 Start: 12-31-2023 End: 12-31-2023 25 mg, INTRAVENOUS, ONCE, 1 dose, On Sat12/31/23 at 1000 Start: 12-10-2023 End: 12-10-2023 25 mg, INTRAVENOUS, ONCE, 1 dose, On Sat12/10/23 at 1000 DOCEtaxel 115.8 mg in NaCl 0.9% 286.58 mL (TAXOTERE) (1 source) Start: 02-13-2024 End: 02-13-2024 115.8 mg (60 mg/m2 1.93 m2 Treatment Plan BSA from Recorded weight), INTRAVENOUS, Administer over 1 Hours, ONCE, 1 dose, On Sat02/13/24 at 0830, ANTINEOPLASTIC IRRITANT NON-PVC container. Infuse via Non-DEHP set. EXP: 02/15/24 @ 08:00 (room temperature) Hazardous Chemotherapy Drug: Use appropriate PPE. Antineoplastic Irritant. DOCEtaxel 140 mg in NaCl 0.9 % 289 mL (TAXOTERE) (3 sources) Start: 01-21-2024 End: 01-21-2024 140 mg (rounded from 144.75 mg = 75 mg/m2 1.93 m2 Treatment Plan BSA from Recorded weight), INTRAVENOUS, Administer over 1 Hours, ONCE, 1 dose, On Sat01/21/24 at 1030, ANTINEOPLASTIC IRRITANT NON-PVC container. Infuse [place]DE[place]. [place] [address]01/22/24 (room temp) Hazardous Chemotherapy Drug: Use appropriate PPE. Antineoplastic Irritant. Start: 12-31-2023 End: 12-31-2023 140 mg (rounded from 144.75 mg = 75 mg/m2 1.93 m2 Treatment Plan BSA from Recorded weight), INTRAVENOUS, Administer over 1 Hours, ONCE, 1 dose, On Sat12/31/23 at 1030, ANTINEOPLASTIC IRRITANT NON-PVC container. Infuse via Non-DEHP [place]. exp 99901/01/24 (room temp) Hazardous Chemotherapy Drug: Use appropriate PPE. Antineoplastic Irritant. Start: 12-10-2023 End: 12-10-2023 140 mg (rounded from 144.75 mg = 75 mg/m2 1.93 m2 Treatment Plan BSA from Recorded weight), INTRAVENOUS, Administer over 1 Hours, ONCE, 1 dose, On Sat12/10/23 at 1030, Approx Total Volume - Expires: 12/12/23 @ 1000 Hazardous Chemotherapy Drug: Use appropriate PPE. Antineoplastic Irritant. EPINEPHrine 0.005 mg/ml / lidocaine hydrochloride 5 mg/ml injectable solution (2 sources) Antiarrhythmic, alpha-Adrenergic Agonist, beta-Adrenergic Agonist, Catecholamine, Amide Local Anesthetic Start: 11-08-2023 End: 11-08-2023 lidocaine-EPINEPHrine 0.5 %-1:200,000 injection Start: 11-07-2023 End: 11-07-2023 lidocaine-EPINEPHrine 0.5 %- 1:200,000 injection 2 ml famotidine 10 mg/ml injection (4 sources) Histamine-2 Receptor Antagonist Start: 02-13-2024 End: 02-13-2024 20 mg, INTRAVENOUS, ONCE, 1 dose, On Sat02/13/24 at 0800, REFRIGERATE Start: 01-21-2024 End: 01-21-2024 20 mg, INTRAVENOUS, ONCE, 1 dose, On Sat01/21/24 at 1000, REFRIGERATE Start: 12-31-2023 End: 12-31-2023 20 mg, INTRAVENOUS, ONCE, 1 dose, On Sat12/31/23 at 1000, REFRIGERATE Start: 12-10-2023 End: 12-10-2023 20 mg, INTRAVENOUS, ONCE, 1 dose, On Sat12/10/23 at 1000, REFRIGERATE fexofenadine (3 sources) Histamine-1 Receptor Antagonist End: 07-31-2021 fexofenadine HCl (SAMANTHA ORAL) Take by mouth as needed. 0 07/31/2021 Discontinued (Changing Therapy/Dosage Form) fexofenadine HCl (SAMANTHA ORAL) Take by mouth as needed. 0 Active Comment on above: Take by mouth as nee ded. FLUTICASONE PROPIONATE (2 sources) Corticosteroid Start: 12-01-2014 FLONASE 50 MCG/ACT SUSP Take as directed FLUTICASONE PROPIONATE [id number] Dimitri Da Silva MD Start: 12-01-2014 End: 06-06-2016 FLONASE 50 MCG/ACT SUSP Take as directed FLUTICASONE PROPIONATE [id number] Dimitri Da Silva MD ibuprofen 200 mg oral tablet (2 sources) Nonsteroidal Anti-inflammatory Drug Start: 07-24-2010 End: 11-17-2012 IBUPROFEN 200 MG TABS As needed for migraine headaches IBUPROFEN [id number] Sunitha Odonnell levocetirizine dihydrochloride 5 mg oral tablet (20 sources) Histamine-1 Receptor Antagonist Start: 06-29-2021 End: 10-13-2023 take 1 tablet by mouth once daily Levocetirizine 5 mg tablet Discontinued 5 mg PO DAILY September 11, 2021 12:00am February 08, 2023 12:37pm Comment on above: Take 5 mg by mouth o nce daily. 10 ml lidocaine hydrochloride 10 mg/ml injection (3 sources) Antiarrhythmic, Amide Local Anesthetic Start: 11-08-2023 End: 11-08-2023 lidocaine (PF) 10 mg/mL (1 %) injection (XYLOCAINE) Start: 11-07-2023 End: 11-07-2023 lidocaine (PF) 10 mg/mL (1 % ) injection (XYLOCAINE) Start: 10-23-2023 End: 10-23-2023 lidocaine 20 mg/mL (2 %) inj ection (XYLOCAINE) meclizine hydrochloride 25 mg oral tablet (4 sources) Antiemetic Start: 05-21-2015 End: 07-02-2017 take 1 tablet by mouth every eight hours as needed for dizziness Meclizine 25 MG tablet Discontinued 25 mg PO Q8H as needed for Dizziness 20 0 May 21, 2015 12:51pm July 02, 2017 2:00pm megestrol acetate 20 mg oral tablet (2 sources) Progestin Start: 07-24-2010 End: 11-19-2011 MEGESTROL ACETATE 20 MG TABS 1/2 tablet daily MEGESTROL ACETATE [id number] Suntiha Odonnell 24 hr metoprolol succinate 50 mg extended release oral tablet (20 sources) beta-Adrenergic Mona Start: 11-19-2011 take 1 tablet by mouth once daily TOPROL XL 50 MG [id number] One tablet by mouth daily METOPROLOL SUCCINATE [id number] Dimitri Da Silva MD Start: 10-19-2010 End: 04-29-2024 take 1 tablet by mouth once daily Metoprolol Succinate 50 mg tablet extended release 24 hr Discontinued 50 mg PO DAILY 90 3 April 22, 2023 4:49pm April 29, 2024 5:34pm Start: 07-24-2010 take 1 tablet by jean-paul th once daily TOPROL XL 50 MG [id number] One tablet by mouth daily METOPROLOL SUCCINATE [id number] Sunitha Odonnell Comment on above: Take 1 tablet by jean-paul th once daily. metroNIDAZOLE 500 mg oral tablet (4 sources) Nitroimidazole Antimicrobial Start: 12-21-19 End: 09-12-19 22 take 1 tablet by mouth every eight hours Metronidazole 500 mg tablet Discontinued 500 mg PO Q8H 20 0 December 20, 2020 12:00am September 11, 2021 1:48pm MULTIPLE VITAMIN (1 source) Start: 07-25-19 take 1 tablet by mouth once daily MULTIVITAMINS TABS One tablet by mouth daily MULTIPLE VITAMIN [id number] Sunitha Odonnell Multivitamin 1 EACH tablet (2 sources) Start: 05-20-19 End: 07-13-19 Multivitamin 1 EACH tablet Discontinued PO DAILY May 20, 2015 1:00am July 13, 2019 2:54pm ondansetron 8 mg oral tablet (20 sources) Serotonin-3 Receptor Antagonist Start: 11-27-19 End: 06-24-19 take 1 tablet by mouth every eight hours as needed ondansetron (ZOFRAN) 8 mg tablet Indications: Malignant neoplasm of lower-inner quadrant of left breast in female, estrogen receptor negative (HCC) Take 1 tablet by mouth every 8 hours as needed. 30 tablet 2 11/27/2023 06/23/2024 Discontinued (Course of therapy completed) Start: 06-25-2023 End: 08-14-2023 take 1 tablet by mouth every eight hours as needed ondansetron (ZOFRAN) 4 mg tablet Take 1 tablet by mouth every 8 hours as needed for nausea/vomiting (for nausea.). 4 tablet 0 06/25/2023 08/14/2023 Discontinued (Other) Comment on above: Take 1 tablet by jean-paul th every 8 hours as needed for nausea/vomiting (for nausea.). 5 ml palonosetron 0.05 mg/ml injection (4 sources) Serotonin-3 Receptor Antagonist Start: 02-13-2024 End: 02-13-2024 0.25 mg, INTRAVENOUS, ONCE, 1 dose, On Gina 02/13/24 at 0800, Flush IV line with NS prior to and following administration. Start: 01-21-2024 End: 01-21-2024 0.25 mg, INTRAVENOUS, ONCE, 1 dose, On Sat01/21/24 at 1000, Flush IV line with NS prior to and following administration. Start: 12-31-2023 End: 12-31-2023 0.25 mg, INTRAVENOUS, ONCE, 1 dose, On Sat12/31/23 at 1000, Flush IV line with NS prior to and following administration. Start: 12-10-2023 End: 12-10-2023 0.25 mg, INTRAVENOUS, ONCE, 1 dose, On Sat12/10/23 at 1000, Flush IV line with NS prior to and following administration. 0.6 ml pegfilgrastim 10 mg/ml prefilled syringe (1 source) Leukocyte Growth Factor Start: 02-13-2024 End: 02-13-2024 6 mg, SUBCUTANEOUS, ONCE, 1 dose, On Gina 02/13/24 at 0800, In order to administer the on-body injector, the device needs to be loaded with the drug by a medical professional. Once loaded, the medical professional has 3 minutes to apply the device to the patient. At that time, a cannula is inserted into the patient and an indicator light will flash a slow-green light which will indicate a functioning device. The device administers the drug to the patient 27 hours after it is applied and drug is delivered over 45 minutes. At the conclusion of the administration, the indicator light will turn to a solid green at which time the device can safely be removed by the patient. If the device fails, the indicator light will turn red. Refrigerate pegfilgrastim-cbqv 6 mg wearable injection (UDENYCA ONBODY) (3 sources) Start: 01-21-2024 End: 01-21-2024 6 mg, SUBCUTANEOUS, ONCE, 1 dose, On Sat01/21/24 at 1000, In order to administer the on-body injector, the device needs to be loaded with the drug by a medical professional. Once loaded, the medical professional will apply the device to the patient on the tricep or abdomen. The device administers the drug to the patient 27 hours after it is applied and drug is delivered over 5 minutes. At the conclusion of the administration, the indicator light will turn to a solid green at which time the device can safely be removed by the patient. If the device fails, the indicator light will turn red. Refrigerate Start: 12-31-2023 End: 12-31-2023 6 mg, SUBCUTANEOUS, ONCE, 1 dose, On Sat12/31/23 at 1000, In order to administer the on-body injector, the device needs to be loaded with the drug by a medical professional. Once loaded, the medical professional will apply the device to the patient on the tricep or abdomen. The device administers the drug to the patient 27 hours after it is applied and drug is delivered over 5 minutes. At the conclusion of the administration, the indicator light will turn to a solid green at which time the device can safely be removed by the patient. If the device fails, the indicator light will turn red. Refrigerate Start: 12-10-2023 End: 12-10-2023 inject 1 dose by subcutaneous injection once 6 mg, SUBCUTANEOUS, ONCE, 1 dose, On Sat12/10/23 at 1000, Refrigerate ramipril 5 mg oral capsule (20 sources) Angiotensin Converting Enzyme Inhibitor Start: 07-26-2014 End: 09-11-2021 take 1 capsule by mouth once daily Ramipril 5 mg capsule Discontinued 5 mg PO DAILY 90 3 May 16, 2021 3:52pm September 11, 2021 1:48pm Start: 07-24-2010 End: 10-11-2014 take 1 tablet by mouth once daily ALTACE 2.5 MG CAPS One tablet by mouth daily RAMIPRIL [id number] Tahira Ortiz PA-C Start: 07-24-2010 take 1 tablet by jean-paul once daily ALTACE 5 MG CAPS One tablet by mouth daily RAMIPRIL [id number] Sunitha Odonnell Comment on above: Take 1 capsule by mo [facility] once daily. Problems Active Problems Problem Classification Problem Date Documented Date Episodic/Chronic Adjustment disorders (1 source) Adjustment disorder with anxious mood; Translations: [Adjustment disorder with anxiety] 09-21-2024 Chronic Anxiety disorders (1 source) Mixed anxiety and depressive disorder; Translations: [Other specified anxiety disorders] Chronic Cancer of breast (20 sources) Malignant neoplasm of lower-inner quadrant of female breast; Translations: [Malignant neoplasm of lower-inner quadrant of left female breast] Onset: 10-11-2023 10-09-2023 Chronic Cardiac dysrhythmias (5 sources) Palpitations; Translations: [Palpitations] Onset: 07-24-2010 07-24-2010 Episodic Chronic kidney disease (20 sources) Chronic kidney disease stage 3A ; Translations: [Stage 3a chronic kidney disease (HCC)] Onset: 08-14-2023 Resolved: 02-19-2024 08-14-2023 Chronic Chronic kidney disease (1 source) Chronic kidney disease; Translations: [Stage 3a chronic kidney disease (HCC)] Onset: 08-14-2023 Conditions associated with dizziness or vertigo (8 sources) Dizziness; Translations: [Dizziness and giddiness] 05-10-2017 Episodic Disorders of lipid metabolism (20 sources) Hyperlipidemia; Translations: [Hyperlipidemia, unspecified] Onset: 11-19-2011 11-19-2011 Chronic Diverticulosis and diverticulitis (20 sources) Diverticular disease; Translations: [Diverticulosis of intestine, part unspecified, without perforation or abscess without bleeding] Onset: 03-22-2009 Resolved: 08-14-2023 03-22-2009 Chronic Essential hypertension (20 sources) Hypertensive disorder; Translations: [Benign essential hypertension] Onset: 08-09-2006 07-24-2010 Chronic Genitourinary symptoms and ill-defined conditions (1 source) Increased frequency of urination; Translations: [Frequency of micturition] 09-02-2023 Episodic Heart valve disorders (20 sources) Mitral valve prolapse; Translations: [Nonrheumatic mitral (valve) prolapse] Onset: 07-24-2010 05-28-2016 Chronic Immunizations and screening for infectious disease (2 sources) Vaccination needed; Translations: [Encounter for immunization] 02-13-2023 Episodic Malignant neoplasm without specification of site (1 source) Psychosomatic factor in physical condition; Translations: [Malignant (primary) neoplasm, unspecified] 09-21-2024 Chronic Nonspecific chest pain (14 sources) Precordial pain; Translations: [Chest pain, unspecified] Onset: 07-24-2010 07-24-2010 Episodic Other aftercare (4 sources) Long-term current use of drug therapy; Translations: [Other buttermaker (current) drug therapy] 07-01-2017 Episodic Other aftercare (1 source) Radiotherapy follow-up; Translations: [Encounter for follow-up examination after completed treatment for conditions other than malignant neoplasm] 05-12-2024 Episodic Other bone disease and musculoskeletal deformities (2 sources) Disorder of bone; Translations: [Disorder of bone, unspecified] 08-14-2023 Episodic Other connective tissue disease (4 sources) Pain in right hand; Translations: [Pain in right hand] Episodic Other connective tissue disease (1 source) Triggering of digit; Translations: [Trigger finger, right middle finger] 03-18-2023 Episodic Other diseases of kidney and ureters (1 source) Renal impairment; Translations: [Disorder of kidney and ureter, unspecified] 05-23-2023 Episodic Other female genital disorders (1 source) Vaginal discharge; Translations: [Other specified noninflammatory disorders of vagina] Episodic Other hematologic conditions (1 source) Erythrocytosis; Translations: [Secondary polycythemia] 05-23-2023 Episodic Other skin disorders (1 source) Eruption; Translations: [Rash and other nonspecific skin eruption] 10-13-2022 Episodic Other skin disorders (4 sources) Mass of soft tissue; Translations: [Other specified soft tissue disorders] 07-01-2024 Episodic Other upper respiratory disease (1 source) Bleeding from nose; Translations: [Epistaxis] 08-28-2023 Episodic Other upper respiratory disease (2 sources) Anterior epistaxis; Translations: [Epistaxis] 08-25-2023 Episodic Screening and history of mental health and substance abuse codes (2 sources) Encounter for screening examination for other mental health and behavioral disorders; Translations: [Encounter for screening for depression] Onset: 08-28-2024 Episodic Spondylosis; intervertebral disc disorders; other back problems (20 sources) Disorder of joint of spine; Translations: [Other spondylosis with radiculopathy, lumbar region] Onset: 10-01-2018 10-01-2018 Chronic Superficial injury; contusion (1 source) Insect bite of trunk; Translations: [Insect bite (nonvenomous) of unspecified back wall of thorax, initial encounter] 10-13-2022 Episodic Unclassified (2 sources) Breast cancer screening, high risk patient 06-03-2024 Unclassified (1 source) Patient encounter status 06-03-2024 Unclassified (2 sources) 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); Translations: [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)] Onset: 10-13-2023 Unclassified (1 source) Lumbar pain; Translations: [Lumbar pain] Onset: 10-05-2024 Unclassified (1 source) Chemotherapy Treatment Onset: 12-31-2023 Past or Other Problems Problem Classification Problem Date Documented Da te Episodic/Chronic Abdominal pain (20 sources) Left lower quadrant pain; Translations: [Left lower quadrant pain] Onset: 07-11-2023 Resolved: 08-14-2023 05-21-2023 Episodic Cancer of breast (5 sources) History of malignant neoplasm of breast; Translations: [Personal history of malignant neoplasm of breast] Onset: 07-02-2024 07-01-2024 Episodic Cancer of uterus (20 sources) Malignant neoplasm of corpus uteri, excluding isthmus; Translations: [Malignant neoplasm of corpus uteri, unspecified] Onset: 09-12-2005 Resolved: 01-26-2021 01-26-2021 Chronic Cancer of uterus (20 sources) History of malignant neoplasm of uterine body; Translations: [Personal history of malignant neoplasm of other parts of uterus] Onset: 01-26-2021 01-26-2021 Episodic Fever of unknown origin (4 sources) Fever; Translations: [Fever, unspecified] Onset: 01-28-2024 01-05-2024 Episodic Headache; including migraine (20 sources) Headache; Translations: [Headache] Onset: 06-04-2005 Resolved: 07-31-2021 11-14-2016 Episodic Nausea and vomiting (20 sources) Postoperative nausea and vomiting; Translations: [Nausea with vomiting, unspecified] Onset: 10-23-2023 Resolved: 08-28-2024 10-23-2023 Episodic Osteoarthritis (20 sources) Degenerative joint disease involving multiple joints; Translations: [Polyosteoarthritis, unspecified] Onset: 06-04-2005 Resolved: 08-06-2022 06-04-2005 Chronic Osteoporosis (20 sources) Osteoporosis; Translations: [Other osteoporosis without current pathological fracture] Onset: 05-21-2017 Resolved: 05-28-2017 05-28-2017 Chronic Other aftercare (3 sources) Long-term (current) use of other medications; Translations: [Other buttermaker (current) drug therapy] Onset: 02-29-2012 Resolved: 11-24-2014 02-29-2012 Episodic Other bone disease and musculoskeletal deformities (20 sources) Osteopenia; Translations: [Other specified disorders of bone density and structure, multiple sites] Onset: 05-28-2017 05-28-2017 Episodic Other bone disease and musculoskeletal deformities (1 source) Other specified disorders of bone density and structure, multiple sites; Translations: [Osteopenia of multiple sites] Onset: 05-28-2017 Episodic Other connective tissue disease (20 sources) Calcific tendinitis of shoulder; Translations: [Calcific tendinitis of unspecified shoulder] Onset: 07-24-2012 07-24-2012 Episodic Other connective tissue disease (1 source) Other specified soft tissue disorders; Translations: [Soft tissue mass] Onset: 07-02-2024 Episodic Other nervous system disorders (20 sources) Postoperative pain ; Translations: [Other acute postprocedural pain] Onset: 04-03-2021 Resolved: 07-31-2021 04-05-2021 Episodic Other non-traumatic joint disorders (20 sources) Pain of left hip joint; Translations: [Pain in left hip] Onset: 10-01-2018 Resolved: 07-29-2020 07-29-2020 Episodic Other nutritional; endocrine; and metabolic disorders (20 sources) Hypomagnesemia; Translations: [Hypomagnesemia] Onset: 04-05-2021 Resolved: 04-05-2021 04-05-2021 Chronic Other screening for suspected conditions (not mental disorders or infectious disease) (20 sources) Patient encounter status; Translations: [Encounter for other screening for malignant neoplasm of breast] Onset: 10-21-2023 Episodic Residual codes; unclassified (20 sources) Insomnia; Translations: [Insomnia, unspecified] Onset: 08-09-2006 08-09-2006 Episodic Residual codes; unclassified (20 sources) Difficult venous access; Translations: [Other specified health status] Onset: 04-03-2021 04-03-2021 Episodic Residual codes; unclassified (20 sources) History of partial resection of colon; Translations: [Acquired absence of other specified parts of digestive tract] Onset: 07-11-2023 05-23-2023 Episodic Residual codes; unclassified (20 sources) At risk of lymphedema; Translations: [Other specified personal risk factors, not elsewhere classified] Onset: 10-13-2023 10-13-2023 Episodic Residual codes; unclassified (2 sources) Other specified postprocedural states; Translations: [Other postprocedural status] Onset: 10-23-2023 11-12-2023 Episodic Residual codes; unclassified (4 sources) Estrogen receptor negative status [ER-]; Translations: [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)] Onset: 10-11-2023 Episodic Residual codes; unclassified (1 source) Acquired absence of other specified parts of digestive tract; Translations: [History of partial colectomy] Onset: 07-11-2023 Episodic Residual codes; unclassified (1 source) Other specified health status; Translations: [Difficult intravenous access] Onset: 04-03-2021 Episodic Spondylosis; intervertebral disc disorders; other back problems (20 sources) Backache; Translations: [Dorsalgia, unspecified] Onset: 05-29-2006 Resolved: 05-12-2012 05-12-2012 Episodic Unclassified (1 source) FH: Hypertension; Translations: [Family history of ischemic heart disease and other diseases of the circulatory system] 05-17-2014 Episodic Unclassified (1 source) Triple-negative breast cancer 10-05-2024 Results Test Name Value Interpretation Reference Range Facility Bilirubin directOrdered By: Tahira Ortiz on 10-08-2024 Bilirubin.direct [Mass/Vol] 0.11 mg/dL 0.00-0.30 [facility] Bilirubin, totalOrdered By: Tahira Ortiz on 10-08-2024 Bilirubin [Mass/Vol] 0.25 mg/dL 0.00-1.30 [facility] Calculated very low density lipoprotein (VLDL) cholesterol measurementOrdered By: Tahira Ortiz on 10-08-2024 Calculated very low density lipoprotein (VLDL) cholesterol measurement 40 mg/dL 5-40 [facility] Cardiology Visit Reporton Cardiology Visit Report [facility] [address] [place] [address]. [address] [place] [address] OFFICE VISIT Date of Service: 10/08/24 MR#: [id number] Acct: [id number] Name: RADHA WITT Rep #: [id number] : [id number] Provider: WHITLEY Cuevas Age/Sex: 74/F Location: [facility] Status: Signed HPI HPI History of Present Illness Details: This is a 74 year-old white female who presents today for an outpatient cardiovascular follow-up visit. She has a history of underlying mitral valve prolapse superimposed upon hyperlipidemia and hypertension. She tells me that she was diagnosed with left breast cancer had undergone chemotherapy with radiation. She notes that since she was here last she has had chest pain to her right side that was relieved with burping. She thinks in the past she has had this before. It is sharp and midsternal. EKG today demonstrates SR with a HR of 60. 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 Required: No Accompanied by: Is patient in pain?: No Allergies adhesive tape Allergy (Verified 10/08/24 11:35) Rash Tetracyclines Allergy (Verified 10/08/24 11:35) Rash Medications ???Medication ???Instructions ???Recorded ???Confirmed ???Type acetaminophen 500 mg capsule 500 mg PO Q6H PRN Pain 07/13/19 History aspirin 81 mg tablet,delayed 81 mg PO DAILY 07/13/19 10/08/24 H istory release (Adult Low Dose Aspirin) butalbital-acetaminophe n-caffeine 1 cap PO Q6H PRN Migraine Headach e 07/13/19 10/08/24 History 50 mg-300 mg-40 mg capsule multivitamin 1 tab PO DAILY 07/13/19 10/08/24 H istory zinc 50 mg tablet (Chelated Zinc) 50 mg PO DAILY 07/13/19 10/08/24 History calcium citrate malate-vitamin D3 1 tab PO BID 09/11/21 10/08/24 Hi story 500 mg-200 unit tablet atorvastatin 10 mg tablet 10 mg PO QHS #90 tabs 04/29/2401/23 Rx metoprolol succinate 50 mg 50 mg PO DAILY #90 tabs 04/29/24 0 10/08/24 Rx tablet,extended release 24 hr prednisone 20 mg tablet 20 mg PO QDAY 10/08/24 10/08/24 Hi story Ejection fraction %: 60 Have you fallen in the past year?: Yes PFSH Medical History Nonrheumatic mitral (valve) prolapse Diverticulitis Non-rheumatic tricuspid valve insufficiency Pure hypercholesterolemia Essential hypertension Chest pain, precordial Chest pain, unspecified Palpitations Nonrheumatic mitral valve prolapse Hypertension Hyperlipidemia Surgical History History of partial colectomy ( 04/2021) HX: benign breast biopsy History of hysterectomy History of tonsillectomy ( 1956) Family History Father CAD (coronary artery disease) HX CABG Afib HX ablation x2 Hypertension Diabetes Sister Myocardial infarction Social History Smoking Status: Never smoker alcohol intake: never substance use type: does not use caffeine: Yes Type: carbonated beverages what type of physical activity do you participate in: walking frequency: daily duration: < 15 minutes/day seatbelt use: always do you feel safe at home: Yes ROS Const Const: Positive for fatigue (Improving. Relates to cancer last year) and weakness Eyes Eyes: Negative for change in vision ENT ENT: Negative for dizziness or balance problems Cardio Chest Pain: Yes Frequency: other (3 times since last OV) Character: sharp Onset: other (After walking) Location: mid sternal Duration: minutes Palpitations: No Edema: None Resp Respiratory: Negative for SOB with activity, SOB at rest or SOB orthopnea SOB lying down GI GI: Negative nausea or heartburn Musc Musc: Negative for balance problems Neuro Neuro: Positive for weakness; Negative for dizziness, lightheadedness, near syncope or syncope Endo Endo: Positive for fatigue (Improving. Relates to cancer last year) Cardiology Exam Const Appearance: cooperative, healthy appearing, comfortable and no acute distress Nutritional Appearance: average body habitus and well nourished Orientation: alert, awake and oriented x3 Head Head: normal to inspection Ears: hearing grossly normal bilaterally Nose: external nose normal Face and Sinus: face symmetric Mouth: oral mucosae normal Eyes General: appearance normal, both eyes and all related structures Eyelids: eyelids normal EOM: EOM intact bilaterally Neck Neck: normal visual inspection and (more content not included)... Normal [facility] LDL calc ser/plasOrdered By: Tahira Ortiz on 10-08-2024 Cholesterol in LDL [Mass/Vol] 67 mg/dL [facility] Comment on above: Evyhvvvruw=775-217 m g/dL & Higher Azuh=462 mg/dL or greater LIPID PANEL (OUTSIDE)on 09-29 LDL Cholesterol [facility] LDL:HDL Ratio [facility] Non-HDL Cholesterol [facility] TC:HDL Ratio 2.95 [facility] VLDL Cholesterol Nathaniel de la torre [facility] Laboratory - Chemistry and C hemistry - challengeOrdered By: Tahira Ortiz on 10-08-2024 AST [Catalytic activity/Vol] 22 U/L <32 [facility] Lipid Profileon 10-08-2024 CHOL:HDL 2.95 Normal [facility] Comment on above: Performed By: #### L 500.4100, L500.3400 ####[facility] [address] [place], [address] Cholesterol in LDL [Mass/Vol] 67 mg/dL Normal [facility] Comment on above: Result Comment: Bord dfhyja=615-118 mg/dL Higher Nwnc=665 mg/dL or greater Performed By: #### L 500.4100, L500.3400 ####[facility] [address] [place], [address] Cholesterol in VLDL [Mass/Vol] 40 mg/dL Normal 5-40 [facility] Comment on above: Performed By: #### L 500.4100, L500.3400 ####[facility] [address] [place], [address] Liver Profileon 10-08-2024 Albumin [Mass/Vol] 4.3 g/dL Normal 3.4-4.8 [facility] Comment on above: Performed By: #### L 500.4100, L500.3400 ####[facility] [address] [place], [address] ALK PHOS 95 U/L Normal 35-104 [facility] Comment on above: Performed By: #### L 500.4100, L500.3400 ####[facility] [address] [place], [address] ALT [Catalytic activity/Vol] 21 U/L Normal <=34 [facility] Comment on above: Performed By: #### L 500.4100, L500.3400 ####[facility] [address] [place], [address] AST [Catalytic activity/Vol] 22 U/L Normal <=31 [facility] Comment on above: Performed By: #### L 500.4100, L500.3400 ####[facility] [address] [place], [address] Bilirubin [Mass/Vol] 0.25 mg/dL Normal 0.00-1.30 [facility] Comment on above: Performed By: #### L 500.4100, L500.3400 ####[facility] [address] [place], [address] Bilirubin.direct [Mass/Vol] 0.11 mg/dL Normal 0.00-0.30 [facility] Comment on above: Performed By: #### L 500.4100, L500.3400 ####[facility] [address] [place], [address] Globulin (S) [Mass/Vol] 2.6 g/dL Normal 2.2-4.2 [facility] Comment on above: Performed By: #### L 500.4100, L500.3400 ####[facility] [address] [place], [address] T PROT 6.8 g/dL Normal 5.9-8.4 [facility] Comment on above: Performed By: #### L 500.4100, L500.3400 ####[facility] [address] [place], [address] Screening total cholesterol/ high density lipoprotein (HDL) cholesterol ratioOrdered By: Tahira Ortiz on 10-08-2024 Cholesterol.total/Cho lesterol in HDL [Mass ratio] 2.95 {ratio} [facility] Serum globulin measurementOr dered By: Tahira Ortiz on 10-08-2024 Globulin (S) [Mass/Vol] 2.6 g/dL 2.2-4.2 [facility] Serum or plasma alanine schroeder otransferase (ALT) measurementOrdered By: Tahira Ortiz on 10-08-2024 ALT [Catalytic activity/Vol] 21 U/L <35 [facility] Serum or plasma albumin sol urement (mass/volume)Ordered By: Tahira Ortiz on 10-08-2024 Albumin [Mass/Vol] 4.3 g/dL 3.4-4.8 [facility] Serum or plasma alkaline lit sphatase measurementOrdered By: Tahira Ortiz on 10-08-2024 ALP [Catalytic activity/Vol] 95 U/L 35-104 [facility] Serum or plasma cholesterol in HDL measurement (mass/volume)on 10-08-2024 Cholesterol in HDL [Mass/Vol] 55 mg/dL Normal [facility] Comment on above: National Cholesterol Education Program (NCEP) guidelines:<40 mg/dL: Low HDL-cholesterol (major risk factor for CHD)>= 60 mg/dL: High HDL-cholesterol (negative risk factor for CHD)HDL-cholesterol is affected by a number of factors, e.g. smoking, exercise, hormones, sex and age. Result Comment: Bobbi onal Cholesterol Education Program (NCEP) guidelines: <40 mg/dL: Low HDL-cholesterol (major risk factor for CHD) >= 60 mg/dL: High HDL-cholesterol (negative risk factor for CHD) HDL-cholesterol is affected by a number of factors, e.g. smoking, exercise, hormones, sex and age. Performed By: #### L 500.4100, L500.3400 ####[facility] [address] [place], [place], [id number] Serum or plasma cholesterol measurement (mass/volume)on 10-08-2024 Cholesterol [Mass/Vol] 161 mg/dL Normal <=200 [facility] Comment on above: per cardio Cholesterol level, D esirable <200 mg/dLBorderline high cholesterol 200-239 mg/dLHigh cholesterol >=240 mg/dLRecommendations of the NCEP Adult Treatment Panel for the following risk-cutoff thresholds for the [place] population. Result Comment: Chol esterol level, Desirable <200 mg/dL Borderline high cholesterol 200-239 mg/dL High cholesterol >=240 mg/dL Recommendations of the NCEP Adult Treatment Panel for the following risk-cutoff thresholds for the [place] population. Performed By: #### L 500.4100, L500.3400 ####[facility] [address] [place], [address] Total proteinOrdered By: Schuyler Ortiz on 10-08-2024 Protein [Mass/Vol] 6.8 g/dL 5.9-8.4 [facility] Triglycerides measurementon 10-08-2024 Triglyceride [Mass/Vol] 198 mg/dL Normal [facility] Comment on above: The drugs N-Acetylcy steine and Metamizole may falsely depress this assay. Normal range: <150 mg/dLBorderline High: 150-199 mg/dLHigh: 200-499 mg/dLVery High: >500 mg/dL Result Comment: The drugs N-Acetylcysteine and Metamizole may falsely depress this assay. Normal range: <150 mg/dL Borderline High: 150-199 mg/dL High: 200-499 mg/dL Very High: >500 mg/dL Performed By: #### L 500.4100, L500.3400 ####[facility] [address] [place], [address] CNOVon 10-05-2024 CNOV Normal [facility] XR LUMBAR 3V AP/LAT/L5-S1on 10-05-2024 XR LUMBAR 3V AP/LAT/L5-S1 Normal [facility] CNOVon 09-21-2024 CNOV Normal [facility] CNOVon 08-28-2024 CNOV Normal [facility] ZAC SCREENING W TOMOon 08-25 ZAC SCREENING W QUE Normal [facility] US Abdomenon 07-02-2024 IMPRESSION: Very small curvilinear probable fluid accumulation within the superficial subcutaneous fat. No suspect lesions. Integrity Director: ALICIA Transcribe Date/Time: Jul 02 2024 3:55P Dictated by : MARY LEMUS MD This examination was interpreted and the report reviewed and electronically signed by: MARY LEMUS MD on Jul 02 2024 4:01PM [facility] DIVISION OF RADIOLOGY * * *Final Report* * * DATE OF EXAM: Jul 02 2024 3:35PM [id number] - US SOFT TISSUE ABDOMEN / PROCEDURE REASON: multiple diagnoses * * * * Physician Interpretation * * * * MSK US SOFT TISSUE ULTRASOUND OF THE LEFT UPPER ANTERIOR ABDOMINAL WALL.. HISTORY: Tender palpable lump. TECHNIQUE: Grayscale and power Doppler ultrasound imaging was performed in the area of concern and images were saved to the permanent image archive. COMPARISON: CT abdomen pelvis 05/21/2023 RESULT: In the region the only focal interruption of normal anatomic planes is a superficial subcutaneous thin curvilinear nonvascular hypoechoic structure measuring 3 x 5 x 1 mm. DIVISION OF RADIOLOGY Provider, [facility] Dillan [facility] - 07/02/2024 * * *Final Report* * * DATE OF EXAM: Jul 02 2024 3:35PM WRU [id number] - US SOFT TISSUE ABDOMEN / PROCEDURE REASON: multiple diagnoses * * * * Physician Interpretation * * * * MSK US SOFT TISSUE ULTRASOUND OF THE LEFT UPPER ANTERIOR ABDOMINAL WALL.. HISTORY: Tender palpable lump. TECHNIQUE: Grayscale and power Doppler ultrasound imaging was performed in the area of concern and images were saved to the permanent image archive. COMPARISON: CT abdomen pelvis 05/21/2023 RESULT: In the region the only focal interruption of normal anatomic planes is a superficial subcutaneous thin curvilinear nonvascular hypoechoic structure measuring 3 x 5 x 1 mm. IMPRESSION IMPRESSION: Very small curvilinear probable fluid accumulation within the superficial subcutaneous fat. No suspect lesions. Integrity Director: PSCB Transcribe Date/Time: Jul 02 2024 3:55P Dictated by : MARY LEMUS MD This examination was interpreted and the report reviewed and electronically signed by: MARY LEMUS MD on Jul 02 2024 4:01PM EST [facility] Radiology Study observation (narrative) [facility] US AbdomenOrdered By: Ccoanh nye on 07-02-2024 [facility] US SOFT TISSUE ABDOMENon US SOFT TISSUE ABDOMEN Normal [facility] CNOVon 07-01-2024 CNOV Normal [facility] CNOVSPon 06-23-2024 CNOVSP Normal [facility] CNOVon 03-05-2025 CNOV Normal [facility] MRI BREAST WO/W IVCON BILon 06-01-2024 MRI BREAST WO/W IVCON JINNY * * *Final Report* * * DATE OF EXAM: Jun 01 2024 1:06PM IRLANDA Dao73 - MRI BREAST WO/W IVCON JINNY / PROCEDURE REASON: multiple diagnoses * * * * Physician Interpretation * * * * [facility] [address] [place] [address] #[id number] - MRI BREAST WO/W IVCON JINNY HISTORY: 74 year-old patient seen for diagnostic evaluation of personal breast cancer history. 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 History of benign right biopsy in 2016 as well as benign bilateral MRI biopsies 10/2023. COMPARISON STUDIES: The present examination has been compared to prior imaging studies dated 08/22/2023 (mammogram), 08/27/2023 (ultrasound), 08/27/2023 (mammogram), 09/25/2023 (mammogram), 10/18/2023 (MRI), 10/23/2023 (mammogram), 10/23/2023, 11/07/2023 (mammogram), 11/07/2023, 11/08/2023 (mammogram) and 11/08/2023 (MRI). BREAST MRI: TECHNIQUE: The patient was studied using the dedicated breast coil in the Siemens 1.5 Susannah scanner. Initial axial T1W NFS, STIR imaging was carried out followed by axial T1-weighted GRE imaging both before and after IV administration of 7 ml of Elucirem. Subsequently, subtraction imaging and 3-D reconstruction were completed on an independent workstation. An additional 3-kcyanf-bnga resolution sequence was performed after the first two 1 minute post-contrast sequences. Complex volumetric analysis requiring post processing was performed using a semi-automated software Workspaceacad, on an independent workstation by the physician, with images created, reviewed, and archived. FINDINGS: There is heterogeneous fibroglandular tissue. There is mild background parenchymal enhancement. The background parenchymal enhancement is symmetrical. RIGHT BREAST: No suspicious masses or areas of abnormal enhancement. Previously mentioned enhancing foci, including area of previous benign right breast MRI biopsy are no longer visible. Susceptibility biopsy clip artifact from prior benign biopsies noted in the lower central and lower outer breast. LEFT BREAST: There are postsurgical changes from interval lumpectomy and postradiation changes, including skin thickening and edema, most notably in the lower inner quadrant. There is a 8.1 x 3.6 x 3.2 cm minimally peripherally enhancing, central T2 hyperintense postoperative seroma in the lower central posterior breast, abutting the pectoralis muscle. There are patchy areas of non mass enhancement and scattered foci with predominantly faint subthreshold enhancement in the left breast. For example, along the anterior aspect of the surgical bed ((66545:64), lateral surgical bed (05/31/2000: 66), and inferior surgical bed (43303:41, 29). There are also a few similar appearing areas within the lateral and lower inner left breast. A few of the foci of enhancement in the lower inner breast show progress/plateau kinetics. There is associated edema throughout the left breast. There is no abnormal enhancement at site of displaced hydromark butterfly biopsy clip in the lateral left breast. The hydromark barrel clip at site of prior benign and concordant MRI biopsy in the lower inner breast is not well visualized due to associated postsurgical change. The previously described abnormal enhancement at that site does not obviously persist on today's study although area is obscured by postoperative edema. LYMPH NODES: Postsurgical changes in the left axilla from sentinel lymph node biopsy. No enlarged axillary or internal mammary lymph nodes. EXTRAMAMMARY FINDINGS: There is some stippled enhancement in the sternum (11:141, 100:165) with associated T2 hyperintensity which is unchanged compared to prior study and favored to represent degenerative change at the sternomanubrial joint. Attention on follow up is recommended. IMPRESSION: RIGHT BREAST: 1. No MRI evidence of malignancy. 2. Interval resolution of previously mentioned enhancing foci. 3. No lymphadenopathy. LEFT BREAST: 1. Expected postsurgical and postradiation changes in the left breast including skin thickening and edema. There is a 8.1 cm seroma in the lumpectomy bed. 2. There are patchy areas of predominantly subthreshold enhancement with associated edema along the lumpectomy bed and scattered throughout the left breast which is favored to represent post-treatment change given patient just finished chemotherapy in January and radiation in April and are probably benign. However, it is noted that only a minute focus of invasive carcinoma was noted on the final surgical pathology. Therefore, short interval follow-up with breast MRI in 6 months is recommended. 3. No lymphadenopathy. Patient is under the care of of Dr. Iglesias and WHITLEY Duarte. BI-RADS Ca (more content not included)... [facility] 05-29-2024 CNPN Telephone (RGFV) RADHA WITT ([id number]) 1950 F Date Time Provider Department 05/29/24 HANNAH CASTAÑEDA (MARK) RGFV During your visit today, we recorded the following information about you: Allergies As of Date: 05/29/2024 Noted Allergy Reaction ADHESIVE 10/24/2023 2 - Rash Comments: bandaids TETRACYCLINES 04/19/2004 2 - Rash Date Reviewed: 04/14/2024 Reviewed by: Margarette Adame RN - Fully Assessed Reason for Visit: Reminder Call [[id number]] Cmt: Appt reminder call, spoke with pt regarding appt time and location Prescriptions as of 05/29/2024 - acetaminophen 325 mg-caffeine 40 mg-butalbital 50 mg (FIORICET) per tablet Take 1 tablet by mouth every 6 hours as needed (headache) for up to 30 days. - cyclobenzaprine (FLEXERIL) 5 mg tablet Take 1 tablet by mouth two times a day as needed. - dexAMETHasone (DECADRON) 4 mg tablet Take 5 tablets 12 and 6 hours prior to chemotherapy treatment. - ondansetron (ZOFRAN) 8 mg tablet Take 1 tablet by mouth every 8 hours as needed. - acetaminophen 300 mg-caffeine 40 mg-butalbital 50 mg (FIORICET) per capsule Take 1 capsule by mouth every 4 hours as needed for headache. - aspirin, enteric coated (ASPIRIN, ENTERIC COATED) 81 mg EC tablet Take 81 mg by mouth once daily. - acetaminophen (TYLENOL) 325 mg tablet Take 2 tablets by mouth every 4 hours as needed for pain. - ZINC ORAL Take 50 mg by mouth once daily. - calcium carbonate/vitamin D3 (CALCIUM 600 + D ORAL) Take 1 tablet by mouth four times daily. - atorvastatin 10 mg tablet Take 10 mg by mouth once daily. - metoprolol succinate XL (TOPROL XL) 50 mg ORAL 24 hr tablet Take 1 tablet by mouth once daily. - MULTIVITAMIN TABLET Take 1 tablet by mouth once daily. Problem List As Of Date 05/29/2024 Noted Resolved Headache [R51.9] 06/04/2005 07/31/2021 Generalized osteoarthrosis, unspecified site [M*06/04/2005 08/06/2022 Malignant neoplasm of corpus uteri, except isth*09/12/2005 01/26/2021 Backache, unspecified [M54.9] 05/29/2006 05/12/2012 Essential hypertension, benign [I10] 08/09/2006 INSOMNIA NOS [G47.00] 08/09/2006 Diverticulosis [K57.90] 03/22/2009 Hyperlipidemia [E78.5] 07/24/2012 Calcific shoulder tendinitis [M75.30] 07/24/2012 Other osteoporosis without current pathological*05/21/2017 05/28/2017 Osteopenia of multiple sites [M85.89] 05/28/2017 MVP (mitral valve prolapse) [I34.1] 11/19/2017 Osteoarthritis of spine with radiculopathy, lum*10/01/2018 Pain of left hip joint [M25.552] 10/01/2018 07/29/2020 History of uterine cancer [Z85.42] 01/26/2021 Diverticulitis [K57.92] 04/03/2021 08/14/2023 Post-op pain [G89.18] 04/03/2021 07/31/2021 Difficult intravenous access [Z78.9] 04/03/2021 Hypomagnesemia [E83.42] 04/05/2021 04/05/2021 History of partial colectomy [Z90.49] 07/11/2023 LLQ pain [R10.32] 07/11/2023 08/14/2023 Stage 3a chronic kidney disease (HCC) [N18.31] 08/14/2023 02/19/2024 Malignant neoplasm of lower-inner quadrant of l*10/13/2023 At risk for lymphedema [Z91.89] 10/13/2023 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) [C50.919*10/13/2023 Abnormal MRI, breast [R92.8] 10/21/2023 PONV (postoperative nausea and vomiting) [R11.2*10/23/2023 Encounter Status:Closed by HANNAH CAMPUZANO on 05/29/24 Normal [facility] CNPNon 04-27-2024 CNPN Normal [facility] ONC Echo Completeon 04-23-19 ONC Echo Complete [facility] [address] [place] [address] ONC Echo Complete 04/23/24 1302 MR#: [id number] Acct: [id number] Name: RADHA WITT Rep #: [id number] : 1950 74 From: Zack Randle MD Attending Dr: Dr. Zack Randle MD Status: NEMO DOUGLAS Ordering Dr: Zack Randle MD Date: 04/23/24 Location: [facility] Sex: F C Admitted: Reason For Study: Antineoplastic Chemo Procedure This was a 2D Doppler, Color Flow transthoracic echocardiogram. Myocardial strain analysis was performed in this exam to aid in the assessment of cardiac function. Exam performed in department. Left Ventricle Normal left ventricle. The global longitudinal strain = -20.8 % (normal). The left ventricular ejection fraction is 60 %. Stage 1 diastolic dysfunction. No regional wall motion abnormalities noted. Right Ventricle Normal RV size. Normal systolic function. Aortic Valve Trisinus/trileaflet aortic valve. Pulmonic Valve Normal pulmonic valve. Great Vessels Normal aortic root. The pulmonary artery is normal size. Normal inferior vena cava. Pericardium/Pleural No pericardial effusion. MMode/2D Measurements Calculations LVIDd: 3.8 cm IVSd: 1.1 cm Ao root diam: 3.4 cm LVIDs: 2.0 cm LVPWd: 0.75 cm RVDd: 3.7 cm FS: 46.5 % LAV(MOD-bp): 25.0 ml SV(MOD-sp4): 39.3 ml LVAd ap4: 21.3 cm2 LAV(MOD-bp) Indexed: 13.2 ml/m2 LVLd ap4: 7.0 cm SI(MOD-sp4): 20.8 ml/m2 LAV(MOD-sp2): 28.4 ml EDV(MOD-sp4): 53.4 ml LAV(MOD-sp4): 22.0 ml EDV(sp4-el): 55.5 ml LVAs ap4: 9.8 cm2 LVLs ap4: 5.8 cm ESV(MOD-sp4): 14.1 ml ESV(sp4-el): 14.2 ml EF(MOD-sp4): 73.7 % EF(sp4-el): 74.5 % SV(sp4-el): 41.4 ml LA A4 area: 11.2 cm2 LA dimension(2D): 2.9 cm TAPSE: 1.8 cm RA A4 area: 14.9 cm2 Time Measurements MV dec time: 0.31 sec Doppler Measurements Calculations MV E max jasvir: 72.2 cm/sec Lat Peak E' Jasvir: 7.7 cm/sec Med Peak E' Jasvir: 7.9 cm/sec MV A max jasvir: 78.8 cm/sec E/E' lat: 9.4 E/E' med: 9.1 MV E/A: 0.92 MV V2 max: 85.4 cm/sec MV P1/2t max jasvir: 85.4 cm/sec Ao V2 max: 129.9 cm/sec MV max P.9 mmHg MV P1/2t: 95.3 msec Ao max P.7 mmHg MV V2 mean: 43.0 cm/sec MV dec slope: 262.5 cm/sec2 Ao V2 mean: 91.6 cm/sec MV mean P.93 mmHg Ao mean P.8 mmHg MV V2 VTI: 24.9 cm MVA(P1/2t): 2.3 cm2 Ao V2 VTI: 31.6 cm AV (velocity ratio): 0.99 LV V1 max: 133.0 cm/sec PA V2 max: 72.5 cm/sec LV V1 max P.1 mmHg LV V1 mean P.6 mmHg LV V1 mean: 88.8 cm/sec LV V1 VTI: 31.3 cm ECHO/ONC Echo Complete Interpretation Summary Normal left ventricle. The global longitudinal strain = -20.8 % (normal). The left ventricular ejection fraction is 60 %. Stage 1 diastolic dysfunction. Structurally normal valves. Ordering Physician: Zack Randle Referring Physician: Zack Randle Performed By: Jason Mosher RCS 04/23/24 1423 Date Zack Randle MD CC: Dr. Zack Randle MD; Dr. Luna Cope MD Date Dictated: 04/23/24 1302 Date Transcribed: 04/23/241422 Integrity Director: Signed Normal [facility] CNCNPATEDon 04-14-2024 CNCNPATED Normal [facility] CNOVon 04-14-2024 CNOV Normal [facility] Cardiology Visit Reporton Cardiology Visit Report [facility] [address] [place] [address] OFFICE VISIT Date of Service: 04/14/24 MR#: [id number] Acct: [id number] Name: RADHA WITT Rep #: [id number] : 1950 Provider: Dr. Zack Randle MD Age/Sex: 74/F Location: [facility] Status: Signed HPI HPI History of Present Illness Details: This is a 74 year-old white female who presents today for an outpatient cardiovascular follow-up visit. She has a history of underlying mitral valve prolapse superimposed upon hyperlipidemia and hypertension. She tells me that she was diagnosed with left breast cancer within the last 6 months and is currently undergoing therapy with cyclophosphamide and docetaxel. She is also undergoing radiation treatment which she is finishing today she does not remember on know that she has had any recent echocardiograms. From a cardiac standpoint, the patient is doing well. She denies any palpitations, chest pain, pressure or heaviness. She does have occasional SOB with exertion-this is nothing new or worsening. She denies Orthopnea, and PND. She does not have bleeding issues; no blood in urine, stool or nosebleeds. She denies any decrease in energy level, myalgias, or claudication. She does not have edema, or sudden weight gain. She denies dizziness, lightheadedness, syncopal or near syncopal episodes, and headaches. 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 Required: No Accompanied by: Self Is patient in pain?: No Allergies adhesive tape Allergy (Verified 04/14/24 09:12) Rash Tetracyclines Allergy (Verified 04/14/24 09:12) Rash Medications ???Medication ???Instructions ???Recorded ???Confirmed ???Type acetaminophen 500 mg capsule 500 mg PO Q6H PRN Pain 07/13/19 04/14/24 History aspirin 81 mg tablet,delayed 81 mg PO DAILY 07/13/19 04/14/24 History release (Adult Low Dose Aspirin) butalbital-acetaminophe n-caffeine 1 cap PO Q6H PRN Migraine Headache 07/13/19 04/14/24 History 50 mg-300 mg-40 mg capsule multivitamin 1 tab PO DAILY 07/13/19 04/14/24 History zinc 50 mg tablet (Chelated Zinc) 50 mg PO DAILY 07/13/19 04/14/24 History calcium citrate malate-vitamin D3 1 tab PO BID 09/11/21 04/14/24 History 500 mg-200 unit tablet atorvastatin 10 mg tablet 10 mg PO QHS #90 tabs 04/22/23 04/14/24 Rx metoprolol succinate 50 mg 50 mg PO DAILY #90 tabs 04/22/23 04/14/24 Rx tablet,extended release 24 hr Have you fallen in the past year?: No PFSH Medical History Nonrheumatic mitral (valve) prolapse Diverticulitis Non-rheumatic tricuspid valve insufficiency Pure hypercholesterolemia Essential hypertension Chest pain, precordial Chest pain, unspecified Palpitations Nonrheumatic mitral valve prolapse Hypertension Hyperlipidemia Surgical History History of partial colectomy ( 04/2021) HX: benign breast biopsy History of hysterectomy History of tonsillectomy ( 1956) Family History Father CAD (coronary artery disease) HX CABG Afib HX ablation x2 Hypertension Diabetes Sister Myocardial infarction Social History Smoking Status: Never smoker alcohol intake: never substance use type: does not use caffeine: Yes Type: carbonated beverages what type of physical activity do you participate in: walking frequency: daily duration: < 15 minutes/day seatbelt use: always do you feel safe at home: Yes ROS Const Const: Negative for fatigue, weakness, headache(s), daytime sleepiness or difficulty sleeping ENT ENT: Negative for headache(s), dizziness or Nosebleed/epistaxis Cardio Chest Pain: No Palpitations: No Edema: None Resp Respiratory: Negative for SOB with activity, SOB at rest, SOB orthopnea SOB lying down or Cough GI GI: Negative nausea, vomiting or heartburn Neuro Neuro: Negative for dizziness, lightheadedness, near syncope, headache(s) or weakness Endo Endo: Negative for fatigue Cardiology Exam Const Appearance: cooperative, healthy appearing, comfortable and no acute distress Nutritional Appearance: average body habitus and well nourished Orientation: alert, awake and oriented x3 Head Head: normal to inspection Ears: hearing grossly normal bilaterally Nose: external nose normal Face and Sinus: face symmetric Mouth: oral mucosae normal Eyes General: appearance normal, both (more content not included)... Normal [facility] CNOVon 04-07-2024 CNOV Normal [facility] CNOVon 03-31-2024 CNOV Normal [facility] CBC W Auto Differential pane l (Bld)on 03-24-2024 Basophils (Bld) [#/Vol] 0.03 10*3/uL Normal <0.11 [facility] Comment on above: Order Comment: Speci men Type: BLOOD SPECIMENOrdering Facility: [facility] Address: [address] [place] [address] Performed By: #### 5 7021-8 ####[facility] MILLWNCLIA [id number] [place] [address] [place] Basophils/100 WBC (Bld) 0.6 % Normal [facility] Comment on above: Order Comment: Speci men Type: BLOOD SPECIMENOrdering Facility: [facility] Address: [address] [place] [address] Performed By: #### 5 7021-8 ####[facility] [id number] [place] [address] [place] Differential cell count method Nom (Bld) Auto Normal [facility] Comment on above: Order Comment: Speci men Type: BLOOD SPECIMENOrdering Facility: [facility] Address: [address] [place] [address] Performed By: #### 5 7021-8 ####[facility]IT[facility] [id number] [place] [address] [place] Eosinophils (Bld) [#/Vol] 0.16 10*3/uL Normal <0.46 [facility] Comment on above: Order Comment: Speci men Type: BLOOD SPECIMENOrdering Facility: [facility] Address: [address] [place] [address] Performed By: #### 5 7021-8 ####[facility] CENTERWNCLIA [id number] [place] [address] [place] Eosinophils/100 WBC (Bld) 3.2 % Normal [facility] Comment on above: Order Comment: Speci men Type: BLOOD SPECIMENOrdering Facility: [facility] Address: [address] [place] [address] Performed By: #### 5 7021-8 ####[facility] H[facility]PITALNCLIA [id number] [place] [address] [place] Erythrocyte distribution width (RBC) [Ratio] 14.3 % Normal 11.5-15.0 [facility] Comment on above: Order Comment: Speci men Type: BLOOD SPECIMENOrdering Facility: [facility] Address: [address] [place] [address] Performed By: #### 5 7021-8 ####[facility] [id number] [place] [address] [place] Hematocrit (Bld) [Volume fraction] 43.1 % Normal 36.0-46.0 [facility] Comment on above: Order Comment: Speci men Type: BLOOD SPECIMENOrdering Facility: [facility] Address: [address] [place] [address] Performed By: #### 5 7021-8 ####[facility]ITALNCENCOM[facility]ALTH [id number] [place] [address] [place] Hemoglobin (Bld) [Mass/Vol] 13.8 g/dL Normal 11.5-15.5 [facility] Comment on above: Order Comment: Speci men Type: BLOOD SPECIMENOrdering Facility: [facility] Address: [address] [place] [address] Performed By: #### 5 7021-8 ####[facility] [id number] [place] [address] [place] Immature granulocytes (Bld) [#/Vol] 10*3/uL Normal <0.10 [facility] Comment on above: Order Comment: Speci men Type: BLOOD SPECIMENOrdering Facility: [facility] Address: [address] [place] [address] Performed By: #### 5 7021-8 ####[facility] HOSPITALNCLI [id number] [place] [address] [place] Immature granulocytes/100 WBC (Bld) 0.2 % Normal [facility] Comment on above: Order Comment: Speci men Type: BLOOD SPECIMENOrdering Facility: [facility] Address: [address] [place] [address] Performed By: #### 5 7021-8 ####[facility] KELLYTERRENCEA [id number] [place] [address] [place] Lymphocytes (Bld) [#/Vol] 0.94 10*3/uL Low 1.00-4.00 [facility] Comment on above: Order Comment: Speci men Type: BLOOD SPECIMENOrdering Facility: [facility] Address: [address] [place] [address] Performed By: #### 5 7021-8 ####[facility] [id number] [place] [address] [place] Lymphocytes/100 WBC (Bld) 18.9 % Normal [facility] Comment on above: Order Comment: Speci men Type: BLOOD SPECIMENOrdering Facility: [facility] Address: [address] [place] [address] Performed By: #### 5 7021-8 ####[facility] HOSPITALATULA [id number] [place] [address] [place] MCH (RBC) [Entitic mass] 30.3 pg Normal 26.0-34.0 [facility] Comment on above: Order Comment: Speci men Type: BLOOD SPECIMENOrdering Facility: [facility] Address: [address] [place] [address] Performed By: #### 5 7021-8 ####[facility] HOSPITALNCLIA [id number] [place] [address] [place] MCHC (RBC) [Mass/Vol] 32.0 g/dL Normal 30.5-36.0 [facility] Comment on above: Order Comment: Speci men Type: BLOOD SPECIMENOrdering Facility: [facility] Address: [address] [place] [address] Performed By: #### 5 7021-8 ####[facility] MILLWNCLIA [id number] [place] [address] [place] MCV (RBC) [Entitic vol] 94.5 fL Normal 80.0-100.0 [facility] Comment on above: Order Comment: Speci men Type: BLOOD SPECIMENOrdering Facility: [facility] Address: [address] [place] [address] Performed By: #### 5 7021-8 ####[facility] [id number] [place] [address] [place] Monocytes (Bld) [#/Vol] 0.51 10*3/uL Normal <0.87 [facility] Comment on above: Order Comment: Speci men Type: BLOOD SPECIMENOrdering Facility: [facility] Address: [address] [place] [address] Performed By: #### 5 7021-8 ####[facility] [id number] [place] [address] [place] Monocytes/100 WBC (Bld) 10.3 % Normal [facility] Comment on above: Order Comment: Speci men Type: BLOOD SPECIMENOrdering Facility: [facility] Address: [address] [place] [address] Performed By: #### 5 7021-8 ####[facility] [id number] [place] [address] [place] Neutrophils (Bld) [#/Vol] 3.32 10*3/uL Normal 1.45-7.50 [facility] Comment on above: Order Comment: Speci men Type: BLOOD SPECIMENOrdering Facility: [facility] Address: [address] [place] [address] Performed By: #### 5 7021-8 ####[facility]OSPITALNCLIA [id number] [place] [address] [place] Neutrophils/100 WBC (Bld) 66.8 % Normal [facility] Comment on above: Order Comment: Speci men Type: BLOOD SPECIMENOrdering Facility: [facility] Address: [address] [place] [address] Performed By: #### 5 7021-8 ####[facility]ITALNC[facility]COM[facility] [id number] [place] [address] [place] Nucleated RBC (Bld) [#/Vol] 10*3/uL Normal <0.01 [facility] Comment on above: Order Comment: Speci men Type: BLOOD SPECIMENOrdering Facility: [facility] Address: [address] [place] [address] Performed By: #### 5 7021-8 ####[facility] [id number] [place] [address] [place] Nucleated RBC/100 WBC (Bld) [Ratio] 0.0 /100 WBC Normal [facility] Comment on above: Order Comment: Speci men Type: BLOOD SPECIMENOrdering Facility: [facility] Address: [address] [place] [address] Performed By: #### 5 7021-8 ####[facility] [id number] [place] [address] [place] Platelet mean volume (Bld) [Entitic vol] 9.1 fL Normal 9.0-12.7 [facility] Comment on above: Order Comment: Speci men Type: BLOOD SPECIMENOrdering Facility: [facility] Address: [address] [place] [address] Performed By: #### 5 7021-8 ####[facility] [id number] [place] [address] [place] Platelets (Bld) [#/Vol] 202 10*3/uL Normal 150-400 [facility] Comment on above: Order Comment: Speci men Type: BLOOD SPECIMENOrdering Facility: [facility] Address: [address] [place] [address] Performed By: #### 5 7021-8 ####[facility] BHARGAVIATULAlfred [id number] [place] [address] [place] RBC (Bld) [#/Vol] 4.56 10*6/uL Normal 3.90-5.20 [facility] Comment on above: Order Comment: Speci men Type: BLOOD SPECIMENOrdering Facility: [facility] Address: [address] [place] [address] Performed By: #### 5 7021-8 ####[facility] KELLYCONCEPTION JUNCTIONODILON [id number] [place] [address] [place] WBC (Bld) [#/Vol] 4.97 10*3/uL Normal 3.70-11.00 [facility] Comment on above: Order Comment: Speci men Type: BLOOD SPECIMENOrdering Facility: [facility] Address: [address] [place] [address] Performed By: #### 5 7021-8 ####[facility] KELLYCONCEPTION JUNCTIONODILON [id number] [place] [address] [place] CNOVon 03-24-2024 CNOV Normal [facility] CNOVSPon 03-24-2024 CNOVSP Normal [facility] Comprehensive metabolic 2000 panelon 03-24-2024 Albumin [Mass/Vol] 4.0 g/dL Normal 3.9-4.9 [facility] Comment on above: Order Comment: Speci men Type: BLOOD SPECIMENOrdering Facility: [facility] Address: [address] [place] [address] Performed By: #### 2 4323-8 ####[facility] KELLYCONCEPTION JUNCTIONNCLIA [id number] [place] [address] [place] ALP [Catalytic activity/Vol] 83 U/L Normal 34-123 [facility] Comment on above: Order Comment: Speci men Type: BLOOD SPECIMENOrdering Facility: [facility] Address: [address] [place] [address] Performed By: #### 2 4323-8 ####[facility] TRE MILLTOWNCLIA [id number] [place] [address] [place] ALT [Catalytic activity/Vol] 8 U/L Normal 7-38 [facility] Comment on above: Order Comment: Speci men Type: BLOOD SPECIMENOrdering Facility: [facility] Address: [address] [place] [address] Performed By: #### 2 4323-8 ####[facility] CENTERWNCLIA [id number] [place] [address] [place] Anion gap [Moles/Vol] 9 mmol/L Normal 8-15 [facility] Comment on above: Order Comment: Speci men Type: BLOOD SPECIMENOrdering Facility: [facility] Address: [address] [place] [address] Performed By: #### 2 4323-8 ####[facility] CENTERWNCLIA [id number] [place] [address] [place] AST [Catalytic activity/Vol] 14 U/L Normal 13-35 [facility] Comment on above: Order Comment: Speci men Type: BLOOD SPECIMENOrdering Facility: [facility] Address: [address] [place] [address] Performed By: #### 2 4323-8 ####[facility] CENTERWNCLIA [id number] [place] [address] [place] Bilirubin [Mass/Vol] 0.5 mg/dL Normal 0.2-1.3 [facility] Comment on above: Order Comment: Speci men Type: BLOOD SPECIMENOrdering Facility: [facility] Address: [address] [place] [address] Performed By: #### 2 4323-8 ####[facility] TRE MILLTOWNCLIA [id number] [place] [address] [place] Calcium [Mass/Vol] 9.4 mg/dL Normal 8.5-10.2 [facility] Comment on above: Order Comment: Speci men Type: BLOOD SPECIMENOrdering Facility: [facility] Address: [address] [place] [address] Performed By: #### 2 4323-8 ####[facility] MILLTOWNCLIA [id number] [place] [address] [place] Chloride [Moles/Vol] 108 mmol/L High 98-107 [facility] Comment on above: Order Comment: Speci men Type: BLOOD SPECIMENOrdering Facility: [facility] Address: [address] [place] [address] Performed By: #### 2 4323-8 ####[facility]OSPITALNCLIA [id number] [place] [address] [place] CO2 [Moles/Vol] 25 mmol/L Normal 22-30 [facility] Comment on above: Order Comment: Speci men Type: BLOOD SPECIMENOrdering Facility: [facility] Address: [address] [place] [address] Performed By: #### 2 4323-8 ####[facility] MILLWNCLIA [id number] [place] [address] [place] Creatinine [Mass/Vol] 0.81 mg/dL Normal 0.58-0.96 [facility] Comment on above: Order Comment: Speci men Type: BLOOD SPECIMENOrdering Facility: [facility] Address: [address] [place] [address] Performed By: #### 2 4323-8 ####[facility]ITALNCLIA [id number] [place] [address] [place] Creatinine and Glomerular filtration rate.predicted panel (S/P/Bld) 77 mL/min/1.73m??? Normal >=60 [facility] Comment on above: Order Comment: Aubrey dozier Type: BLOOD SPECIMENOrdering Facility: [facility] Address: [address] [place] [address] Result Comment: Brandie mated Glomerular Filtration Rate (eGFR) is calculated using the 2020 CKD-EPI creatinine equation. This equation utilizes serum creatinine, sex, and age as parameters. The creatinine assay has traceable calibration to isotope dilution-mass spectrometry. Refer to KDIGO guidelines for clinical interpretation. In patients with unstable renal function, e.g. those with acute kidney injury, the eGFR may not accurately reflect actual GFR. Performed By: #### 2 4323-8 ####[facility] [id number] [place] [address] [place] Glucose [Mass/Vol] 88 mg/dL Normal 74-99 [facility] Comment on above: Order Comment: Aubrey dozier Type: BLOOD SPECIMENOrdering Facility: [facility] Address: [address] [place] [address] Result Comment: The [place] [employer] (ADA) provides guidance for cutoff values for fasting glucose and random glucose. The ADA defines fasting as no caloric intake for at least 8 hours. Fasting plasma glucose results between 100 to 125 mg/dL indicate increased risk for diabetes (prediabetes).Fasting plasma glucose results greater than or equal to 126 mg/dL meet the criteria for diagnosis of diabetes. In the absence of unequivocal hyperglycemia, results should be confirmed by repeat testing. In a patient with classic symptoms of hyperglycemia or hyperglycemic crisis, random plasma glucose results greater than or equal to 200 mg/dL meet the criteria for diagnosis of diabetes.Reference: Standards of Medical Care in Diabetes 2016, [place] [employer] Association. Diabetes Care. 2016.39(Suppl 1). Performed By: #### 2 4323-8 ####[facility] [id number] [place] [address] [place] Potassium [Moles/Vol] 3.8 mmol/L Normal 3.7-5.1 [facility] Comment on above: Order Comment: Speci men Type: BLOOD SPECIMENOrdering Facility: [facility] Address: [address] [place] [address] Performed By: #### 2 4323-8 ####[facility] KELLYCONCEPTION JUNCTIONNCSTELLAA [id number] [place] [address] [place] Protein [Mass/Vol] 6.0 g/dL Low 6.3-8.0 [facility] Comment on above: Order Comment: Speci men Type: BLOOD SPECIMENOrdering Facility: [facility] Address: [address] [place] [address] Performed By: #### 2 4323-8 ####[facility] [id number] [place] [address] [place] Sodium [Moles/Vol] 142 mmol/L Normal 136-144 [facility] Comment on above: Order Comment: Speci men Type: BLOOD SPECIMENOrdering Facility: [facility] Address: [address] [place] [address] Performed By: #### 2 4323-8 ####[facility]ITALNCLIA [id number] [place] [address] [place] Urea nitrogen [Mass/Vol] 15 mg/dL Normal 7-21 [facility] Comment on above: Order Comment: Speci men Type: BLOOD SPECIMENOrdering Facility: [facility] Address: [address] [place] [address] Performed By: #### 2 4323-8 ####[facility]ITALNCLIA [id number] [place] [address] [place] CBC W Auto Differential pane l (Bld)on 03-17-2024 Basophils (Bld) [#/Vol] 0.04 10*3/uL Normal <0.11 [facility] Comment on above: Order Comment: Speci men Type: BLOOD SPECIMENOrdering Facility: [facility] Address: [address] [place] [address] Performed By: #### 5 7021-8 ####[facility] LABCLIA [id number] [place] [address] [place] Basophils/100 WBC (Bld) 0.9 % Normal [facility] Comment on above: Order Comment: Speci men Type: BLOOD SPECIMENOrdering Facility: [facility] Address: [address] [place] [address] Performed By: #### 5 7021-8 ####[facility] LABCLIA [id number] [place] [address] [place] Differential cell count method Nom (Bld) Auto Normal [facility] Comment on above: Order Comment: Speci men Type: BLOOD SPECIMENOrdering Facility: [facility] Address: [address] [place] [address] Performed By: #### 5 7021-8 ####[facility] LABCLIA [id number] [place] [address] [place] Eosinophils (Bld) [#/Vol] 0.17 10*3/uL Normal <0.46 [facility] Comment on above: Order Comment: Speci men Type: BLOOD SPECIMENOrdering Facility: [facility] Address: [address] [place] [address] Performed By: #### 5 7021-8 ####[facility] LABCLIA [id number] [place] [address] [place] Eosinophils/100 WBC (Bld) 3.6 % Normal [facility] Comment on above: Order Comment: Speci men Type: BLOOD SPECIMENOrdering Facility: [facility] Address: [address] [place] [address] Performed By: #### 5 7021-8 ####[facility] LABCLIA [id number] [place] [address] [place] Erythrocyte distribution width (RBC) [Ratio] 15.3 % High 11.5-15.0 [facility] Comment on above: Order Comment: Speci men Type: BLOOD SPECIMENOrdering Facility: [facility] Address: [address] [place] [address] Performed By: #### 5 7021-8 ####[facility] LABCLIA [id number] [place] [address] [place] Hematocrit (Bld) [Volume fraction] 42.2 % Normal 36.0-46.0 [facility] Comment on above: Order Comment: Speci men Type: BLOOD SPECIMENOrdering Facility: [facility] Address: [address] [place] [address] Performed By: #### 5 7021-8 ####[facility] LABIA [id number] [place] [address] [place] Hemoglobin (Bld) [Mass/Vol] 13.0 g/dL Normal 11.5-15.5 [facility] Comment on above: Order Comment: Speci men Type: BLOOD SPECIMENOrdering Facility: [facility] Address: [address] [place] [address] Performed By: #### 5 7021-8 ####[facility] LABIA [id number] [place] [address] [place] Immature granulocytes (Bld) [#/Vol] 10*3/uL Normal <0.10 [facility] Comment on above: Order Comment: Speci men Type: BLOOD SPECIMENOrdering Facility: [facility] Address: [address] [place] [address] Performed By: #### 5 7021-8 ####[facility] LABIA [id number] [place] [address] [place] Immature granulocytes/100 WBC (Bld) 0.4 % Normal [facility] Comment on above: Order Comment: Speci men Type: BLOOD SPECIMENOrdering Facility: [facility] Address: [address] [place] [address] Performed By: #### 5 7021-8 ####[facility] LABCLIA [id number] [place] [address] [place] Lymphocytes (Bld) [#/Vol] 1.03 10*3/uL Normal 1.00-4.00 [facility] Comment on above: Order Comment: Speci men Type: BLOOD SPECIMENOrdering Facility: [facility] Address: [address] [place] [address] Performed By: #### 5 7021-8 ####[facility] LABCLIA [id number] [place] [address] [place] Lymphocytes/100 WBC (Bld) 22.0 % Normal [facility] Comment on above: Order Comment: Speci men Type: BLOOD SPECIMENOrdering Facility: [facility] Address: [address] [place] [address] Performed By: #### 5 7021-8 ####[facility] LABCLIA [id number] [place] [address] [place] MCH (RBC) [Entitic mass] 30.0 pg Normal 26.0-34.0 [facility] Comment on above: Order Comment: Speci men Type: BLOOD SPECIMENOrdering Facility: [facility] Address: [address] [place] [address] Performed By: #### 5 7021-8 ####[facility] LABCLIA [id number] [place] [address] [place] MCHC (RBC) [Mass/Vol] 30.8 g/dL Normal 30.5-36.0 [facility] Comment on above: Order Comment: Speci men Type: BLOOD SPECIMENOrdering Facility: [facility] Address: [address] [place] [address] Performed By: #### 5 7021-8 ####[facility] LABCLIA [id number] [place] [address] [place] MCV (RBC) [Entitic vol] 97.5 fL Normal 80.0-100.0 [facility] Comment on above: Order Comment: Speci men Type: BLOOD SPECIMENOrdering Facility: [facility] Address: [address] [place] [address] Performed By: #### 5 7021-8 ####[facility] LABCLIA [id number] [place] [address] [place] Monocytes (Bld) [#/Vol] 0.55 10*3/uL Normal <0.87 [facility] Comment on above: Order Comment: Speci men Type: BLOOD SPECIMENOrdering Facility: [facility] Address: [address] [place] [address] Performed By: #### 5 7021-8 ####[facility] LABCLIA [id number] [place] [address] [place] Monocytes/100 WBC (Bld) 11.7 % Normal [facility] Comment on above: Order Comment: Speci men Type: BLOOD SPECIMENOrdering Facility: [facility] Address: [address] [place] [address] Performed By: #### 5 7021-8 ####[facility] LABCLIA [id number] [place] [address] [place] Neutrophils (Bld) [#/Vol] 2.88 10*3/uL Normal 1.45-7.50 [facility] Comment on above: Order Comment: Speci men Type: BLOOD SPECIMENOrdering Facility: [facility] Address: [address] [place] [address] Performed By: #### 5 7021-8 ####[facility] LABCLIA [id number] [place] [address] [place] Neutrophils/100 WBC (Bld) 61.4 % Normal [facility] Comment on above: Order Comment: Speci men Type: BLOOD SPECIMENOrdering Facility: [facility] Address: [address] [place] [address] Performed By: #### 5 7021-8 ####[facility] LABCLIA [id number] [place] [address] [place] Nucleated RBC (Bld) [#/Vol] 10*3/uL Normal <0.01 [facility] Comment on above: Order Comment: Speci men Type: BLOOD SPECIMENOrdering Facility: [facility] Address: [address] [place] [address] Performed By: #### 5 7021-8 ####[facility] LABCLIA [id number] [place] [address] [place] Nucleated RBC/100 WBC (Bld) [Ratio] 0.0 /100 WBC Normal [facility] Comment on above: Order Comment: Speci men Type: BLOOD SPECIMENOrdering Facility: [facility] Address: [address] [place] [address] Performed By: #### 5 7021-8 ####[facility] LABIA [id number] [place] [address] [place] Platelet mean volume (Bld) [Entitic vol] 10.3 fL Normal 9.0-12.7 [facility] Comment on above: Order Comment: Speci men Type: BLOOD SPECIMENOrdering Facility: [facility] Address: [address] [place] [address] Performed By: #### 5 7021-8 ####[facility] LABCLIA [id number] [place] [address] [place] Platelets (Bld) [#/Vol] 247 10*3/uL Normal 150-400 [facility] Comment on above: Order Comment: Speci men Type: BLOOD SPECIMENOrdering Facility: [facility] Address: [address] [place] [address] Performed By: #### 5 7021-8 ####[facility] LABCLIA [id number] [place] [address] [place] RBC (Bld) [#/Vol] 4.33 10*6/uL Normal 3.90-5.20 [facility] Comment on above: Order Comment: Speci men Type: BLOOD SPECIMENOrdering Facility: [facility] Address: [address] [place] [address] Performed By: #### 5 7021-8 ####[facility] LABCLIA [id number] [place] [address] [place] WBC (Bld) [#/Vol] 4.69 10*3/uL Normal 3.70-11.00 [facility] Comment on above: Order Comment: Speci men Type: BLOOD SPECIMENOrdering Facility: [facility] Address: [address] [place] [address] Performed By: #### 5 7021-8 ####[facility]IA [id number] [place] [address] [place] CNOVon 03-17-2024 CNOV Normal [facility] Comprehensive metabolic 2000 panelon 03-17-2024 Albumin [Mass/Vol] 3.7 g/dL Low 3.9-4.9 [facility] Comment on above: Order Comment: Speci men Type: BLOOD SPECIMENOrdering Facility: [facility] Address: [address] [place] [address] Performed By: #### 2 4331-1, 01151-6 ####[facility] LABIA [id number] [place] [address] [place] ALP [Catalytic activity/Vol] 80 U/L Normal 34-123 [facility] Comment on above: Order Comment: Speci men Type: BLOOD SPECIMENOrdering Facility: [facility] Address: [address] [place] [address] Performed By: #### 2 4331-1, 54708-4 ####[facility] LABCLIA [id number] [id number] [address] [place] ALT [Catalytic activity/Vol] 13 U/L Normal 7-38 [facility] Comment on above: Order Comment: Speci men Type: BLOOD SPECIMENOrdering Facility: [facility] Address: [address] [place] [address] Performed By: #### 2 4331-1, ####[facility] LABCLIA [id number] [place] [id number] [place] Anion gap [Moles/Vol] 9 mmol/L Normal 8-15 [facility] Comment on above: Order Comment: Speci men Type: BLOOD SPECIMENOrdering Facility: [facility] Address: [address] [place] [address] Performed By: #### 2 4331-1, 93013-1 ####[facility] LABCLIA [id number] [place] [address] [place] AST [Catalytic activity/Vol] 19 U/L Normal 13-35 [facility] Comment on above: Order Comment: Speci men Type: BLOOD SPECIMENOrdering Facility: [facility] Address: [address] [place] [address] Performed By: #### 2 4331-1, ####[facility] LABCLIA [id number] [place] [id number] [place] Bilirubin [Mass/Vol] 0.5 mg/dL Normal 0.2-1.3 [facility] Comment on above: Order Comment: Speci men Type: BLOOD SPECIMENOrdering Facility: [facility] Address: [address] [place], [place] [address] Performed By: #### 2 4331-1, 14935-9 ####[facility] LABCLIA [id number] [place] [id number] [place] Calcium [Mass/Vol] 9.4 mg/dL Normal 8.5-10.2 [facility] Comment on above: Order Comment: Speci men Type: BLOOD SPECIMENOrdering Facility: [facility] Address: [address] [place], [place] [address] Performed By: #### 2 4331-1, 27783-7 ####[facility] LABCLIA [id number] [place] [id number] [place] Chloride [Moles/Vol] 107 mmol/L Normal 98-107 [facility] Comment on above: Order Comment: Speci men Type: BLOOD SPECIMENOrdering Facility: [facility] Address: [address] [place] [address] Performed By: #### 2 4331-1, 04164-7 ####[facility] LABCLIA [id number] [place] [address] [place] CO2 [Moles/Vol] 26 mmol/L Normal 22-30 [facility] Comment on above: Order Comment: Speci men Type: BLOOD SPECIMENOrdering Facility: [facility] Address: [address] [place] [address] Performed By: #### 2 4331-1, 00737-3 ####[facility] LABCLIA [id number] [place] [address] [place] Creatinine [Mass/Vol] 0.87 mg/dL Normal 0.58-0.96 [facility] Comment on above: Order Comment: Speci men Type: BLOOD SPECIMENOrdering Facility: [facility] Address: [address] [place] [address] Performed By: #### 2 4331-1, 51503-8 ####[facility] LABCLIA [id number] [place] [address] [place] Creatinine and Glomerular filtration rate.predicted panel (S/P/Bld) 71 mL/min/1.73m??? Normal >=60 [facility] Comment on above: Order Comment: Speci men Type: BLOOD SPECIMENOrdering Facility: [facility] Address: [address] [place] [address] Result Comment: Brandie mated Glomerular Filtration Rate (eGFR) is calculated using the 2020 CKD-EPI creatinine equation. This equation utilizes serum creatinine, sex, and age as parameters. The creatinine assay has traceable calibration to isotope dilution-mass spectrometry. Refer to KDIGO guidelines for clinical interpretation. In patients with unstable renal function, e.g. those with acute kidney injury, the eGFR may not accurately reflect actual GFR. Performed By: #### 2 4331-1, 67515-3 ####[facility] LABCLIA [id number] [place] [address] [place] Glucose [Mass/Vol] 89 mg/dL Normal 74-99 [facility] Comment on above: Order Comment: Specdejon men Type: BLOOD SPECIMENOrdering Facility: [facility] Address: [address] [place] [address] Result Comment: The [place] [employer] (ADA) provides guidance for cutoff values for fasting glucose and random glucose. The ADA defines fasting as no caloric intake for at least 8 hours. Fasting plasma glucose results between 100 to 125 mg/dL indicate increased risk for diabetes (prediabetes).Fasting plasma glucose results greater than or equal to 126 mg/dL meet the criteria for diagnosis of diabetes. In the absence of unequivocal hyperglycemia, results should be confirmed by repeat testing. In a patient with classic symptoms of hyperglycemia or hyperglycemic crisis, random plasma glucose results greater than or equal to 200 mg/dL meet the criteria for diagnosis of diabetes.Reference: Standards of Medical Care in Diabetes 2016, [place] [employer]. Diabetes Care. 2016.39(Suppl 1). Performed By: #### 2 4331-, 19963-4 ####[facility] LABIA [id number] [place] [address] [place] Potassium [Moles/Vol] 4.3 mmol/L Normal 3.7-5.1 [facility] Comment on above: Order Comment: Aubrey dozier Type: BLOOD SPECIMENOrdering Facility: [facility] Address: [address] [place] [address] Performed By: #### 2 4331-, 19020-1 ####[facility] LABCLIA [id number] [place] [address] [place] Protein [Mass/Vol] 5.9 g/dL Low 6.3-8.0 [facility] Comment on above: Order Comment: Speci men Type: BLOOD SPECIMENOrdering Facility: [facility] Address: [address] [place] [address] Performed By: #### 2 4331-1, 68431-7 ####[facility] LABCLIA [id number] [place] [address] [place] Sodium [Moles/Vol] 142 mmol/L Normal 136-144 [facility] Comment on above: Order Comment: Speci men Type: BLOOD SPECIMENOrdering Facility: [facility] Address: [address] [place] [address] Performed By: #### 2 4331-1, 92281-1 ####[facility] LABCLIA [id number] [place] [address] [place] Urea nitrogen [Mass/Vol] 14 mg/dL Normal 7-21 [facility] Comment on above: Order Comment: Speci men Type: BLOOD SPECIMENOrdering Facility: [facility] Address: [address] [place] [address] Performed By: #### 2 4331-1, 69808-7 ####[facility] LABCLIA [id number] [place] [address] [place] Lipid 1996 panelon 4 Cholesterol [Mass/Vol] 128 mg/dL Normal <200 [facility] Comment on above: Order Comment: Speci men Type: BLOOD SPECIMENOrdering Facility: [facility] Address: [address] [place] [address] Result Comment: <200 mg/dL, Desirable 200-239 mg/dL, Borderline high>239 mg/dL, High Performed By: #### 2 4331-1, 92695-5 ####[facility] LABCLIA [id number] [address] [facility] Cholesterol in HDL [Mass/Vol] 43 mg/dL Normal >39 [facility] Comment on above: Order Comment: Aubrey jacoby Type: BLOOD SPECIMENOrdering Facility: [facility] Address: [address] [place] [address] Result Comment: 40-5 9 mg/dL, Acceptable>59 mg/dL, High: Negative risk factor for coronary heart disease<40 mg/dL, Low: Positive risk factor for coronary heart disease Performed By: #### 2 4331-1, 70183-9 ####[facility] LABCLIA [id number] [address] Cholesterol in LDL [Mass/Vol] 68 mg/dL Normal <100 [facility] Comment on above: Order Comment: Aubrey dozier Type: BLOOD SPECIMENOrdering Facility: [facility] Address: [address] [place] [address] Result Comment: <100 mg/dL, Optimal 100-129 mg/dL, Near optimal/above optimal 130-159 mg/dL, Borderline high 160-189 mg/dL, High>189 mg/dL, Very highSecondary prevention optimal LDL Cholesterol levels are recommended to be < 70 mg/dL Performed By: #### 2 4331-1, 12640-0 ####[facility] LABCLIA [id number] [address] [facility] Cholesterol in LDL/Cholesterol in HDL [Mass ratio] 1.58 {ratio} Normal <2.54 [facility] Comment on above: Order Comment: Aubrey jacoby Type: BLOOD SPECIMENOrdering Facility: [facility] Address: [address] [place] [address] Result Comment: Kiara lopes:1. National Cholesterol Education Program ATP III Guideline At-A-Glance Quick Desk Reference: National Heart, Lung, and Blood [place]. National Institutes of Health. 2001: NIH Publication No. 01-3305.2. An International Atherosclerosis Society position paper: global recommendations for the management of dyslipidemia: executive summary, Atherosclerosis. 2014: 232(2):410-413. Performed By: #### 2 4331-1, ####[facility] LABCLIA [id number] [place] [address] [place] Cholesterol in VLDL [Mass/Vol] 17 mg/dL Normal <30 [facility] Comment on above: Order Comment: Speci men Type: BLOOD SPECIMENOrdering Facility: [facility] Address: [address] [place] [address] Performed By: #### 2 4331-1, ####[facility] LABCLIA [id number] [place] [address] [place] Cholesterol non HDL [Mass/Vol] 85 mg/dL Normal <130 [facility] Comment on above: Order Comment: Speci men Type: BLOOD SPECIMENOrdering Facility: [facility] Address: [address] [place] [address] Result Comment: <130 mg/dL, Optimal 130-159 mg/dL, Near optimal/above optimal 160-189 mg/dL, Borderline high 190-219 mg/dL, High>219 mg/dL, Very highSecondary prevention optimal non HDL Cholesterol levels are recommended to be <100 mg/dL Performed By: #### 2 4331-1, ####[facility] LABCLIA [id number] [address] [address] [place] Cholesterol.total/Cho lesterol in HDL [Mass ratio] 2.98 {ratio} Normal <5.10 [facility] Comment on above: Order Comment: Speci men Type: BLOOD SPECIMENOrdering Facility: [facility] Address: [address] [place] [address] Performed By: #### 2 4331-1, ####[facility] LABCLIA [id number] [place] [id number] [place] FASTING TIME 12 hrs Normal [facility] Comment on above: Order Comment: Speci men Type: BLOOD SPECIMENOrdering Facility: [facility] Address: [address] [place] [address] Performed By: #### 2 4331-1, 49164-7 ####[facility] LABCLIA [id number] [place] [address] [place] Triglyceride [Mass/Vol] 85 mg/dL Normal <150 [facility] Comment on above: Order Comment: Speci men Type: BLOOD SPECIMENOrdering Facility: [facility] Address: [address] [place] [address] Result Comment: <150 mg/dL, Normal 150-199 mg/dL, Borderline high 200-499 mg/dL, High>499 mg/dL, Very high Performed By: #### 2 4331-1, 05908-0 ####[facility] LABCLIA [id number] [place] [address] [place] CNNURSEon 03-11-2024 CNNURSE Normal [facility] CNPNon 03-05-2024 CNPN Normal [facility] CNOVon 02-19-2024 CNOV Normal [facility] CBC W Auto Differential pane l (Bld)on 02-13-2024 Basophils (Bld) [#/Vol] 0.09 10*3/uL Normal <0.11 [facility] Comment on above: Order Comment: Speci men Type: BLOOD SPECIMENOrdering Facility: [facility] Address: [address] [place] [address] Performed By: #### 5 7021-8 ####[facility] [id number] [place] [address] [place] Basophils/100 WBC (Bld) 1.5 % Normal [facility] Comment on above: Order Comment: Speci men Type: BLOOD SPECIMENOrdering Facility: [facility] Address: [address] [place] [address] Performed By: #### 5 7021-8 ####[facility]LIA [id number] [place] [address] [place] Differential cell count method Nom (Bld) Auto Normal [facility] Comment on above: Order Comment: Speci men Type: BLOOD SPECIMENOrdering Facility: [facility] Address: [address] [place] [address] Performed By: #### 5 7021-8 ####[facility] [id number] [place] [address] [place] Eosinophils (Bld) [#/Vol] 0.09 10*3/uL Normal <0.46 [facility] Comment on above: Order Comment: Speci men Type: BLOOD SPECIMENOrdering Facility: [facility] Address: [address] [place] [address] Performed By: #### 5 7021-8 ####[facility] [id number] [place] [address] [place] Eosinophils/100 WBC (Bld) 1.5 % Normal [facility] Comment on above: Order Comment: Speci men Type: BLOOD SPECIMENOrdering Facility: [facility] Address: [address] [place] [address] Performed By: #### 5 7021-8 ####[facility] [id number] [place] [address] [place] Erythrocyte distribution width (RBC) [Ratio] 15.3 % High 11.5-15.0 [facility] Comment on above: Order Comment: Speci men Type: BLOOD SPECIMENOrdering Facility: [facility] Address: [address] [place] [address] Performed By: #### 5 7021-8 ####[facility] [id number] [place] [address] [place] Hematocrit (Bld) [Volume fraction] 38.0 % Normal 36.0-46.0 [facility] Comment on above: Order Comment: Speci men Type: BLOOD SPECIMENOrdering Facility: [facility] Address: [address] [place] [address] Performed By: #### 5 7021-8 ####[facility] [id number] [place] [address] [place] Hemoglobin (Bld) [Mass/Vol] 12.5 g/dL Normal 11.5-15.5 [facility] Comment on above: Order Comment: Speci men Type: BLOOD SPECIMENOrdering Facility: [facility] Address: [address] [place] [address] Performed By: #### 5 7021-8 ####[facility] [id number] [place] [address] [place] Immature granulocytes (Bld) [#/Vol] 10*3/uL Normal <0.10 [facility] Comment on above: Order Comment: Speci men Type: BLOOD SPECIMENOrdering Facility: [facility] Address: [address] [place] [address] Performed By: #### 5 7021-8 ####[facility] [id number] [place] [address] [place] Immature granulocytes/100 WBC (Bld) 0.3 % Normal [facility] Comment on above: Order Comment: Speci men Type: BLOOD SPECIMENOrdering Facility: [facility] Address: [address] [place] [address] Performed By: #### 5 7021-8 ####[facility] [id number] [place] [address] [place] Lymphocytes (Bld) [#/Vol] 0.78 10*3/uL Low 1.00-4.00 [facility] Comment on above: Order Comment: Speci men Type: BLOOD SPECIMENOrdering Facility: [facility] Address: [address] [place] [address] Performed By: #### 5 7021-8 ####[facility]ITALNCDEIDRE [id number] [place] [address] [place] Lymphocytes/100 WBC (Bld) 12.9 % Normal [facility] Comment on above: Order Comment: Speci men Type: BLOOD SPECIMENOrdering Facility: [facility] Address: [address] [place] [address] Performed By: #### 5 7021-8 ####[facility] HOSPITALODILON [id number] [place] [address] [place] MCH (RBC) [Entitic mass] 30.7 pg Normal 26.0-34.0 [facility] Comment on above: Order Comment: Speci men Type: BLOOD SPECIMENOrdering Facility: [facility] Address: [address] [place] [address] Performed By: #### 5 7021-8 ####[facility]ITALNCSTELLAA [id number] [place] [address] [place] MCHC (RBC) [Mass/Vol] 32.9 g/dL Normal 30.5-36.0 [facility] Comment on above: Order Comment: Speci men Type: BLOOD SPECIMENOrdering Facility: [facility] Address: [address] [place] [address] Performed By: #### 5 7021-8 ####[facility]ITALNCLIA [id number] [place] [address] [place] MCV (RBC) [Entitic vol] 93.4 fL Normal 80.0-100.0 [facility] Comment on above: Order Comment: Speci men Type: BLOOD SPECIMENOrdering Facility: [facility] Address: [address] [place] [address] Performed By: #### 5 7021-8 ####[facility]ITALNCLIA [id number] [place] [address] [place] Monocytes (Bld) [#/Vol] 0.91 10*3/uL High <0.87 [facility] Comment on above: Order Comment: Speci men Type: BLOOD SPECIMENOrdering Facility: [facility] Address: [address] [place] [address] Performed By: #### 5 7021-8 ####[facility] [id number] [place] [address] [place] Monocytes/100 WBC (Bld) 15.0 % Normal [facility] Comment on above: Order Comment: Speci men Type: BLOOD SPECIMENOrdering Facility: [facility] Address: [address] [place] [address] Performed By: #### 5 7021-8 ####[facility] [id number] [place] [address] [place] Neutrophils (Bld) [#/Vol] 4.17 10*3/uL Normal 1.45-7.50 [facility] Comment on above: Order Comment: Speci men Type: BLOOD SPECIMENOrdering Facility: [facility] Address: [address] [place] [address] Performed By: #### 5 7021-8 ####[facility] [id number] [place] [address] [place] Neutrophils/100 WBC (Bld) 68.8 % Normal [facility] Comment on above: Order Comment: Speci men Type: BLOOD SPECIMENOrdering Facility: [facility] Address: [address] [place] [address] Performed By: #### 5 7021-8 ####[facility] [id number] [place] [address] [place] Nucleated RBC (Bld) [#/Vol] 10*3/uL Normal <0.01 [facility] Comment on above: Order Comment: Speci men Type: BLOOD SPECIMENOrdering Facility: [facility] Address: [address] [place] [address] Performed By: #### 5 7021-8 ####[facility] KELLYJD [id number] [place] [address] [place] Nucleated RBC/100 WBC (Bld) [Ratio] 0.0 /100 WBC Normal [facility] Comment on above: Order Comment: Speci men Type: BLOOD SPECIMENOrdering Facility: [facility] Address: [address] [place] [address] Performed By: #### 5 7021-8 ####[facility] HOSPITALNCDEIDRE [id number] [place] [address] [place] Platelet mean volume (Bld) [Entitic vol] 9.2 fL Normal 9.0-12.7 [facility] Comment on above: Order Comment: Speci men Type: BLOOD SPECIMENOrdering Facility: [facility] Address: [address] [place] [address] Performed By: #### 5 7021-8 ####[facility] [id number] [place] [address] [place] Platelets (Bld) [#/Vol] 292 10*3/uL Normal 150-400 [facility] Comment on above: Order Comment: Speci men Type: BLOOD SPECIMENOrdering Facility: [facility] Address: [address] [place] [address] Performed By: #### 5 7021-8 ####[facility] HOSPITALELLENLIA [id number] [place] [address] [place] RBC (Bld) [#/Vol] 4.07 10*6/uL Normal 3.90-5.20 [facility] Comment on above: Order Comment: Speci men Type: BLOOD SPECIMENOrdering Facility: [facility] Address: [address] [place] [address] Performed By: #### 5 7021-8 ####[facility] CENTERWNCLIA [id number] [place] [address] [place] WBC (Bld) [#/Vol] 6.06 10*3/uL Normal 3.70-11.00 [facility] Comment on above: Order Comment: Speci men Type: BLOOD SPECIMENOrdering Facility: [facility] Address: [address] [place] [address] Performed By: #### 5 7021-8 ####[facility] HOSPITALNCLIA [id number] [place] [address] [place] Comprehensive metabolic 2000 panelon 02-13-2024 Albumin [Mass/Vol] 3.7 g/dL Low 3.9-4.9 [facility] Comment on above: Order Comment: Speci men Type: BLOOD SPECIMENOrdering Facility: [facility] Address: [address] [place] [address] Performed By: #### 2 4323-8 ####[facility] HOSPITALNCLIA [id number] [place] [address] [place] ALP [Catalytic activity/Vol] 93 U/L Normal 34-123 [facility] Comment on above: Order Comment: Speci men Type: BLOOD SPECIMENOrdering Facility: [facility] Address: [address] [place] [address] Performed By: #### 2 4323-8 ####[facility] HOSPITALNCLIA [id number] [place] [address] [place] ALT [Catalytic activity/Vol] 12 U/L Normal 7-38 [facility] Comment on above: Order Comment: Speci men Type: BLOOD SPECIMENOrdering Facility: [facility] Address: [address] [place] [address] Performed By: #### 2 4323-8 ####[facility] HOSPITALNCLIA [id number] [place] [address] [place] Anion gap [Moles/Vol] 8 mmol/L Normal 8-15 [facility] Comment on above: Order Comment: Speci men Type: BLOOD SPECIMENOrdering Facility: [facility] Address: [address] [place] [address] Performed By: #### 2 4323-8 ####[facility] CENTERWNCLIA [id number] [place] [address] [place] AST [Catalytic activity/Vol] 17 U/L Normal 13-35 [facility] Comment on above: Order Comment: Speci men Type: BLOOD SPECIMENOrdering Facility: [facility] Address: [address] [place] [address] Performed By: #### 2 4323-8 ####[facility] HOSPITALLIA [id number] [place] [address] [place] Bilirubin [Mass/Vol] 0.4 mg/dL Normal 0.2-1.3 [facility] Comment on above: Order Comment: Speci men Type: BLOOD SPECIMENOrdering Facility: [facility] Address: [address] [place] [address] Performed By: #### 2 4323-8 ####[facility] HOSPITALNCLIA [id number] [place] [address] [place] Calcium [Mass/Vol] 9.7 mg/dL Normal 8.5-10.2 [facility] Comment on above: Order Comment: Speci men Type: BLOOD SPECIMENOrdering Facility: [facility] Address: [address] [place], [place] [address] Performed By: #### 2 4323-8 ####[facility] HOSPITALLIA [id number] [place] [address] [place] Chloride [Moles/Vol] 104 mmol/L Normal 98-107 [facility] Comment on above: Order Comment: Speci men Type: BLOOD SPECIMENOrdering Facility: [facility] Address: [address] [place] [address] Performed By: #### 2 4323-8 ####[facility]PITALNCENCOMPASS HEALTH [id number] [place] [address] [place] CO2 [Moles/Vol] 27 mmol/L Normal 22-30 [facility] Comment on above: Order Comment: Speci men Type: BLOOD SPECIMENOrdering Facility: [facility] Address: [address] [place] [address] Performed By: #### 2 4323-8 ####[facility]ITALNCENCOMPASS HEALTH [id number] [place] [address] [place] Creatinine [Mass/Vol] 0.86 mg/dL Normal 0.58-0.96 [facility] Comment on above: Order Comment: Speci men Type: BLOOD SPECIMENOrdering Facility: [facility] Address: [address] [place] [address] Performed By: #### 2 4323-8 ####[facility] [id number] [address] [place] Creatinine and Glomerular filtration rate.predicted panel (S/P/Bld) 72 mL/min/1.73m??? Normal >=60 [facility] Comment on above: Order Comment: Speci men Type: BLOOD SPECIMENOrdering Facility: [facility] Address: [address] [place] [address] Result Comment: Brandie mated Glomerular Filtration Rate (eGFR) is calculated using the 2020 CKD-EPI creatinine equation. This equation utilizes serum creatinine, sex, and age as parameters. The creatinine assay has traceable calibration to isotope dilution-mass spectrometry. Refer to KDIGO guidelines for clinical interpretation. In patients with unstable renal function, e.g. those with acute kidney injury, the eGFR may not accurately reflect actual GFR. Performed By: #### 2 4323-8 ####[facility] CENTERWNCLIA [id number] [place] [address] [place] Glucose [Mass/Vol] 82 mg/dL Normal 74-99 [facility] Comment on above: Order Comment: Speci men Type: BLOOD SPECIMENOrdering Facility: [facility] Address: [address] [place] [address] Result Comment: The [place] Diabetes [employer] (ADA) provides guidance for cutoff values for fasting glucose and random glucose. The ADA defines fasting as no caloric intake for at least 8 hours. Fasting plasma glucose results between 100 to 125 mg/dL indicate increased risk for diabetes (prediabetes).Fasting plasma glucose results greater than or equal to 126 mg/dL meet the criteria for diagnosis of diabetes. In the absence of unequivocal hyperglycemia, results should be confirmed by repeat testing. In a patient with classic symptoms of hyperglycemia or hyperglycemic crisis, random plasma glucose results greater than or equal to 200 mg/dL meet the criteria for diagnosis of diabetes.Reference: Standards of Medical Care in Diabetes 2016, [place] [employer]. Diabetes Care. 2016.39(Suppl 1). Performed By: #### 2 4323-8 ####[facility] TRE MILLTOWNCLIA [id number] [place] [address] [place] Potassium [Moles/Vol] 3.6 mmol/L Low 3.7-5.1 [facility] Comment on above: Order Comment: Speci men Type: BLOOD SPECIMENOrdering Facility: [facility] Address: [address] [place] [address] Performed By: #### 2 4323-8 ####[facility] TRE MILLTOWNCLIA [id number] [place] [address] [place] Protein [Mass/Vol] 6.1 g/dL Low 6.3-8.0 [facility] Comment on above: Order Comment: Speci men Type: BLOOD SPECIMENOrdering Facility: [facility] Address: [address] [place], [place] [address] Performed By: #### 2 4323-8 ####[facility] MILLTOWNCLIA [id number] [place] [address] [place] Sodium [Moles/Vol] 139 mmol/L Normal 136-144 [facility] Comment on above: Order Comment: Speci men Type: BLOOD SPECIMENOrdering Facility: [facility] Address: [address] [place] [address] Performed By: #### 2 4323-8 ####[facility] CENTERWNCLIA [id number] [place] [address] [place] Urea nitrogen [Mass/Vol] 13 mg/dL Normal 7-21 [facility] Comment on above: Order Comment: Speci men Type: BLOOD SPECIMENOrdering Facility: [facility] Address: [address] [place] [address] Performed By: #### 2 4323-8 ####[facility] HOSPITALLIA [id number] [place] [address] [place] CNPNon 02-11-2024 CNPN Normal [facility] CBC W Auto Differential pane l (Bld)on 02-07-2024 Basophils (Bld) [#/Vol] 0.06 10*3/uL Normal <0.11 [facility] Comment on above: Order Comment: Speci men Type: BLOOD SPECIMENOrdering Facility: [facility] Address: [address] [place] [address] Performed By: #### 5 7021-8 ####[facility] HOSPITALELLENLIA [id number] [place] [address] [place] Basophils/100 WBC (Bld) 0.5 % Normal [facility] Comment on above: Order Comment: Speci men Type: BLOOD SPECIMENOrdering Facility: [facility] Address: [address] [place] [address] Performed By: #### 5 7021-8 ####[facility] HOSPITALNCLIA [id number] [place] [address] [place] Differential cell count method Nom (Bld) Auto Normal [facility] Comment on above: Order Comment: Speci men Type: BLOOD SPECIMENOrdering Facility: [facility] Address: [address] [place] [address] Performed By: #### 5 7021-8 ####[facility] DALLASSTELLAAlfred [id number] [place] [address] [place] Eosinophils (Bld) [#/Vol] 0.04 10*3/uL Normal <0.46 [facility] Comment on above: Order Comment: Speci men Type: BLOOD SPECIMENOrdering Facility: [facility] Address: [address] [place] [address] Performed By: #### 5 7021-8 ####[facility] HOSPITALODILON [id number] [place] [address] [place] Eosinophils/100 WBC (Bld) 0.3 % Normal [facility] Comment on above: Order Comment: Speci men Type: BLOOD SPECIMENOrdering Facility: [facility] Address: [address] [place] [address] Performed By: #### 5 7021-8 ####[facility] HOSPITALODILON [id number] [place] [address] [place] Erythrocyte distribution width (RBC) [Ratio] 15.4 % High 11.5-15.0 [facility] Comment on above: Order Comment: Speci men Type: BLOOD SPECIMENOrdering Facility: [facility] Address: [address] [place] [address] Performed By: #### 5 7021-8 ####[facility] HOSPITALLIA [id number] [place] [address] [place] Hematocrit (Bld) [Volume fraction] 43.4 % Normal 36.0-46.0 [facility] Comment on above: Order Comment: Speci men Type: BLOOD SPECIMENOrdering Facility: [facility] Address: [address] [place] [address] Performed By: #### 5 7021-8 ####[facility] HOSPITALNCLIA [id number] [place] [address] [place] Hemoglobin (Bld) [Mass/Vol] 14.0 g/dL Normal 11.5-15.5 [facility] Comment on above: Order Comment: Speci men Type: BLOOD SPECIMENOrdering Facility: [facility] Address: [address] [place] [address] Performed By: #### 5 7021-8 ####[facility] [id number] [place] [address] [place] Immature granulocytes (Bld) [#/Vol] 0.08 10*3/uL Normal <0.10 [facility] Comment on above: Order Comment: Speci men Type: BLOOD SPECIMENOrdering Facility: [facility] Address: [address] [place] [address] Performed By: #### 5 7021-8 ####[facility] [id number] [place] [address] [place] Immature granulocytes/100 WBC (Bld) 0.7 % Normal [facility] Comment on above: Order Comment: Speci men Type: BLOOD SPECIMENOrdering Facility: [facility] Address: [address] [place], [place] [address] Performed By: #### 5 7021-8 ####[facility] [id number] [place] [address] [place] Lymphocytes (Bld) [#/Vol] 0.90 10*3/uL Low 1.00-4.00 [facility] Comment on above: Order Comment: Speci men Type: BLOOD SPECIMENOrdering Facility: [facility] Address: [address] [place] [address] Performed By: #### 5 7021-8 ####[facility] HOSPITALLI [id number] [place] [address] [place] Lymphocytes/100 WBC (Bld) 7.6 % Normal [facility] Comment on above: Order Comment: Speci men Type: BLOOD SPECIMENOrdering Facility: [facility] Address: [address] [place] [address] Performed By: #### 5 7021-8 ####[facility] HOSPITALATULA [id number] [place] [address] [place] MCH (RBC) [Entitic mass] 30.4 pg Normal 26.0-34.0 [facility] Comment on above: Order Comment: Speci men Type: BLOOD SPECIMENOrdering Facility: [facility] Address: [address] [place] [address] Performed By: #### 5 7021-8 ####[facility] HOSPITALNCSTELLA [id number] [place] [address] [place] MCHC (RBC) [Mass/Vol] 32.3 g/dL Normal 30.5-36.0 [facility] Comment on above: Order Comment: Speci men Type: BLOOD SPECIMENOrdering Facility: [facility] Address: [address] [place] [address] Performed By: #### 5 7021-8 ####[facility] HOSPITALNCLIA [id number] [place] [address] [place] MCV (RBC) [Entitic vol] 94.3 fL Normal 80.0-100.0 [facility] Comment on above: Order Comment: Speci men Type: BLOOD SPECIMENOrdering Facility: [facility] Address: [address] [place] [address] Performed By: #### 5 7021-8 ####[facility] HOSPITALNCLIA [id number] [place] [address] [place] Monocytes (Bld) [#/Vol] 1.47 10*3/uL High <0.87 [facility] Comment on above: Order Comment: Speci men Type: BLOOD SPECIMENOrdering Facility: [facility] Address: [address] [place] [address] Performed By: #### 5 7021-8 ####[facility] KELLYDaquanNCLIA [id number] [place] [address] [place] Monocytes/100 WBC (Bld) 12.3 % Normal [facility] Comment on above: Order Comment: Speci men Type: BLOOD SPECIMENOrdering Facility: [facility] Address: [address] [place] [address] Performed By: #### 5 7021-8 ####[facility] HOSPITALNCA [id number] [place] [address] [place] Neutrophils (Bld) [#/Vol] 9.37 10*3/uL High 1.45-7.50 [facility] Comment on above: Order Comment: Speci men Type: BLOOD SPECIMENOrdering Facility: [facility] Address: [address] [place] [address] Performed By: #### 5 7021-8 ####[facility] [id number] [place] [address] [place] Neutrophils/100 WBC (Bld) 78.6 % Normal [facility] Comment on above: Order Comment: Speci men Type: BLOOD SPECIMENOrdering Facility: [facility] Address: [address] [place] [address] Performed By: #### 5 7021-8 ####[facility]PITALLIA [id number] [place] [address] [place] Nucleated RBC (Bld) [#/Vol] 10*3/uL Normal <0.01 [facility] Comment on above: Order Comment: Speci men Type: BLOOD SPECIMENOrdering Facility: [facility] Address: [address] [place] [address] Performed By: #### 5 7021-8 ####[facility] HOSPITALNCLIA [id number] [place] [address] [place] Nucleated RBC/100 WBC (Bld) [Ratio] 0.0 /100 WBC Normal [facility] Comment on above: Order Comment: Speci men Type: BLOOD SPECIMENOrdering Facility: [facility] Address: [address] [place] [address] Performed By: #### 5 7021-8 ####[facility] [id number] [place] [address] [place] Platelet mean volume (Bld) [Entitic vol] 9.6 fL Normal 9.0-12.7 [facility] Comment on above: Order Comment: Speci men Type: BLOOD SPECIMENOrdering Facility: [facility] Address: [address] [place] [address] Performed By: #### 5 7021-8 ####[facility] [id number] [place] [address] [place] Platelets (Bld) [#/Vol] 260 10*3/uL Normal 150-400 [facility] Comment on above: Order Comment: Speci men Type: BLOOD SPECIMENOrdering Facility: [facility] Address: [address] [place] [address] Performed By: #### 5 7021-8 ####[facility] [id number] [place] [address] [place] RBC (Bld) [#/Vol] 4.60 10*6/uL Normal 3.90-5.20 [facility] Comment on above: Order Comment: Speci men Type: BLOOD SPECIMENOrdering Facility: [facility] Address: [address] [place] [address] Performed By: #### 5 7021-8 ####[facility] [id number] [place] [address] [place] WBC (Bld) [#/Vol] 11.92 10*3/uL High 3.70-11.00 [facility] Comment on above: Order Comment: Speci men Type: BLOOD SPECIMENOrdering Facility: [facility] Address: [address] [place] [address] Performed By: #### 5 7021-8 ####[facility] CENTERWNCLIA [id number] [place] [address] [place] CNOVSPon 02-07-2024 CNOVSP Normal [facility] metabolic 2000 panelon 02-07-2024 Albumin [Mass/Vol] 3.7 g/dL Low 3.9-4.9 [facility] Comment on above: Order Comment: Speci men Type: BLOOD SPECIMENOrdering Facility: [facility] Address: [address] [place] [address] Performed By: #### 2 4323-8 ####[facility] HOSPITALLIA [id number] [place] [address] [place] ALP [Catalytic activity/Vol] 100 U/L Normal 34-123 [facility] Comment on above: Order Comment: Speci men Type: BLOOD SPECIMENOrdering Facility: [facility] Address: [address] [place] [address] Performed By: #### 2 4323-8 ####[facility] CENTERWNCLIA [id number] [place] [address] [place] ALT [Catalytic activity/Vol] 12 U/L Normal 7-38 [facility] Comment on above: Order Comment: Speci men Type: BLOOD SPECIMENOrdering Facility: [facility] Address: [address] [place] [address] Performed By: #### 2 4323-8 ####[facility] HOSPITALNCLIA [id number] [place] [address] [place] Anion gap [Moles/Vol] 11 mmol/L Normal 8-15 [facility] Comment on above: Order Comment: Speci men Type: BLOOD SPECIMENOrdering Facility: [facility] Address: [address] [place] [address] Performed By: #### 2 4323-8 ####[facility] MILLWNCLIA [id number] [place] [address] [place] AST [Catalytic activity/Vol] 15 U/L Normal 13-35 [facility] Comment on above: Order Comment: Speci men Type: BLOOD SPECIMENOrdering Facility: [facility] Address: [address] [place] [address] Performed By: #### 2 4323-8 ####[facility] HOSPITALNCLIA [id number] [place] [address] [place] Bilirubin [Mass/Vol] 0.3 mg/dL Normal 0.2-1.3 [facility] Comment on above: Order Comment: Speci men Type: BLOOD SPECIMENOrdering Facility: [facility] Address: [address] [place] [address] Performed By: #### 2 4323-8 ####[facility] HOSPITALLIA [id number] [place] [address] [place] Calcium [Mass/Vol] 9.4 mg/dL Normal 8.5-10.2 [facility] Comment on above: Order Comment: Speci men Type: BLOOD SPECIMENOrdering Facility: [facility] Address: [address] [place], [place] [address] Performed By: #### 2 4323-8 ####[facility] HOSPITALNCLIA [id number] [place] [address] [place] Chloride [Moles/Vol] 102 mmol/L Normal 98-107 [facility] Comment on above: Order Comment: Speci men Type: BLOOD SPECIMENOrdering Facility: [facility] Address: [address] [place] [address] Performed By: #### 2 4323-8 ####[facility]ITALNCENCOMPASS HEALTH [id number] [place] [address] [place] CO2 [Moles/Vol] 21 mmol/L Low 22-30 [facility] Comment on above: Order Comment: Speci men Type: BLOOD SPECIMENOrdering Facility: [facility] Address: [address] [place] [address] Performed By: #### 2 4323-8 ####[facility]ITALNCENCOMPASS HEALTH [id number] [place] [address] [place] Creatinine [Mass/Vol] 0.80 mg/dL Normal 0.58-0.96 [facility] Comment on above: Order Comment: Speci men Type: BLOOD SPECIMENOrdering Facility: [facility] Address: [address] [place] [address] Performed By: #### 2 4323-8 ####[facility]ITALNCENCOMPASS HEALTH [id number] [address] [place] Creatinine and Glomerular filtration rate.predicted panel (S/P/Bld) 78 mL/min/1.73m??? Normal >=60 [facility] Comment on above: Order Comment: Speci men Type: BLOOD SPECIMENOrdering Facility: [facility] Address: [address] [place] [address] Result Comment: Brandie mated Glomerular Filtration Rate (eGFR) is calculated using the 2020 CKD-EPI creatinine equation. This equation utilizes serum creatinine, sex, and age as parameters. The creatinine assay has traceable calibration to isotope dilution-mass spectrometry. Refer to KDIGO guidelines for clinical interpretation. In patients with unstable renal function, e.g. those with acute kidney injury, the eGFR may not accurately reflect actual GFR. Performed By: #### 2 4323-8 ####[facility] CENTERWNCLI [id number] [place] [address] [place] Glucose [Mass/Vol] 110 mg/dL High 74-99 [facility] Comment on above: Order Comment: Speci men Type: BLOOD SPECIMENOrdering Facility: [facility] Address: [address] [place] [address] Result Comment: The [place] [employer] (ADA) provides guidance for cutoff values for fasting glucose and random glucose. The ADA defines fasting as no caloric intake for at least 8 hours. Fasting plasma glucose results between 100 to 125 mg/dL indicate increased risk for diabetes (prediabetes).Fasting plasma glucose results greater than or equal to 126 mg/dL meet the criteria for diagnosis of diabetes. In the absence of unequivocal hyperglycemia, results should be confirmed by repeat testing. In a patient with classic symptoms of hyperglycemia or hyperglycemic crisis, random plasma glucose results greater than or equal to 200 mg/dL meet the criteria for diagnosis of diabetes.Reference: Standards of Medical Care in Diabetes 2016, [place] [employer]. Diabetes Care. 2016.39(Suppl 1). Performed By: #### 2 4323-8 ####[facility] MILLYANDYWELLENLIA [id number] [place] [address] [place] Potassium [Moles/Vol] 3.9 mmol/L Normal 3.7-5.1 [facility] Comment on above: Order Comment: Speci men Type: BLOOD SPECIMENOrdering Facility: [facility] Address: [address] [place] [address] Performed By: #### 2 4323-8 ####[facility] HOSPITALYANDYWNCLIA [id number] [place] [address] [place] Protein [Mass/Vol] 6.2 g/dL Low 6.3-8.0 [facility] Comment on above: Order Comment: Speci men Type: BLOOD SPECIMENOrdering Facility: [facility] Address: [address] [place] [address] Performed By: #### 2 4323-8 ####[facility] HOSPITALYANDYWNCLIA [id number] [place] [address] [place] Sodium [Moles/Vol] 134 mmol/L Low 136-144 [facility] Comment on above: Order Comment: Speci men Type: BLOOD SPECIMENOrdering Facility: [facility] Address: [address] [place] [address] Performed By: #### 2 4323-8 ####[facility] CENTERWELLENLIA [id number] [place] [address] [place] Urea nitrogen [Mass/Vol] 23 mg/dL High 7-21 [facility] Comment on above: Order Comment: Speci men Type: BLOOD SPECIMENOrdering Facility: [facility] Address: [address] [place] [address] Performed By: #### 2 4323-8 ####[facility] [id number] [place] [address] [place] CNPNon 01-31-2024 CNPN Normal [facility] CBC W Auto Differential pane l (Bld)on 01-17-2024 Basophils (Bld) [#/Vol] 0.05 10*3/uL Normal <0.11 [facility] Comment on above: Order Comment: Speci men Type: BLOOD SPECIMENOrdering Facility: [facility] Address: [address] [place] [address] Performed By: #### 5 7021-8 ####[facility] HOSPITALELLENLIA [id number] [place] [address] [place] Basophils/100 WBC (Bld) 0.5 % Normal [facility] Comment on above: Order Comment: Speci men Type: BLOOD SPECIMENOrdering Facility: [facility] Address: [address] [place] [address] Performed By: #### 5 7021-8 ####[facility] HOSPITALNCLIA [id number] [place] [address] [place] Differential cell count method Nom (Bld) Auto Normal [facility] Comment on above: Order Comment: Speci men Type: BLOOD SPECIMENOrdering Facility: [facility] Address: [address] [place] [address] Performed By: #### 5 7021-8 ####[facility] BHARGVAIELLENLIA [id number] [place] [address] [place] Eosinophils (Bld) [#/Vol] 10*3/uL Normal <0.46 [facility] Comment on above: Order Comment: Speci men Type: BLOOD SPECIMENOrdering Facility: [facility] Address: [address] [place] [address] Performed By: #### 5 7021-8 ####[facility] HOSPITALELLENLIA [id number] [place] [address] [place] Eosinophils/100 WBC (Bld) 0.2 % Normal [facility] Comment on above: Order Comment: Speci men Type: BLOOD SPECIMENOrdering Facility: [facility] Address: [address] [place] [address] Performed By: #### 5 7021-8 ####[facility] KELLYCONCEPTION JUNCTIONELLENLIA [id number] [place] [address] [place] Erythrocyte distribution width (RBC) [Ratio] 14.6 % Normal 11.5-15.0 [facility] Comment on above: Order Comment: Speci men Type: BLOOD SPECIMENOrdering Facility: [facility] Address: [address] [place] [address] Performed By: #### 5 7021-8 ####[facility] HOSPITALELLENLIA [id number] [place] [address] [place] Hematocrit (Bld) [Volume fraction] 42.2 % Normal 36.0-46.0 [facility] Comment on above: Order Comment: Speci men Type: BLOOD SPECIMENOrdering Facility: [facility] Address: [address] [place] [address] Performed By: #### 5 7021-8 ####[facility] HOSPITALNCLIA [id number] [place] [address] [place] Hemoglobin (Bld) [Mass/Vol] 14.0 g/dL Normal 11.5-15.5 [facility] Comment on above: Order Comment: Speci men Type: BLOOD SPECIMENOrdering Facility: [facility] Address: [address] [place] [address] Performed By: #### 5 7021-8 ####[facility]IDA [id number] [place] [address] [place] Immature granulocytes (Bld) [#/Vol] 0.05 10*3/uL Normal <0.10 [facility] Comment on above: Order Comment: Speci men Type: BLOOD SPECIMENOrdering Facility: [facility] Address: [address] [place] [address] Performed By: #### 5 7021-8 ####[facility] [id number] [place] [address] [place] Immature granulocytes/100 WBC (Bld) 0.5 % Normal [facility] Comment on above: Order Comment: Speci men Type: BLOOD SPECIMENOrdering Facility: [facility] Address: [address] [place] [address] Performed By: #### 5 7021-8 ####[facility] H[facility]PITALLIA [id number] [place] [address] [place] Lymphocytes (Bld) [#/Vol] 1.41 10*3/uL Normal 1.00-4.00 [facility] Comment on above: Order Comment: Speci men Type: BLOOD SPECIMENOrdering Facility: [facility] Address: [address] [place] [address] Performed By: #### 5 7021-8 ####[facility] [id number] [place] [address] [place] Lymphocytes/100 WBC (Bld) 15.4 % Normal [facility] Comment on above: Order Comment: Speci men Type: BLOOD SPECIMENOrdering Facility: [facility] Address: [address] [place] [address] Performed By: #### 5 7021-8 ####[facility] HOSPITALODILON [id number] [place] [address] [place] MCH (RBC) [Entitic mass] 30.2 pg Normal 26.0-34.0 [facility] Comment on above: Order Comment: Speci men Type: BLOOD SPECIMENOrdering Facility: [facility] Address: [address] [place] [address] Performed By: #### 5 7021-8 ####[facility] HOSPITALODILON [id number] [place] [address] [place] MCHC (RBC) [Mass/Vol] 33.2 g/dL Normal 30.5-36.0 [facility] Comment on above: Order Comment: Speci men Type: BLOOD SPECIMENOrdering Facility: [facility] Address: [address] [place] [address] Performed By: #### 5 7021-8 ####[facility] HOSPITALNCSTELLA [id number] [place] [address] [place] MCV (RBC) [Entitic vol] 91.1 fL Normal 80.0-100.0 [facility] Comment on above: Order Comment: Speci men Type: BLOOD SPECIMENOrdering Facility: [facility] Address: [address] [place] [address] Performed By: #### 5 7021-8 ####[facility] HOSPITALNCLI [id number] [place] [address] [place] Monocytes (Bld) [#/Vol] 1.05 10*3/uL High <0.87 [facility] Comment on above: Order Comment: Speci men Type: BLOOD SPECIMENOrdering Facility: [facility] Address: [address] [place] [address] Performed By: #### 5 7021-8 ####[facility] HOSPITALNCLIA [id number] [place] [address] [place] Monocytes/100 WBC (Bld) 11.5 % Normal [facility] Comment on above: Order Comment: Speci men Type: BLOOD SPECIMENOrdering Facility: [facility] Address: [address] [place] [address] Performed By: #### 5 7021-8 ####[facility] HOSPITALNCA [id number] [place] [address] [place] Neutrophils (Bld) [#/Vol] 6.59 10*3/uL Normal 1.45-7.50 [facility] Comment on above: Order Comment: Speci men Type: BLOOD SPECIMENOrdering Facility: [facility] Address: [address] [place] [address] Performed By: #### 5 7021-8 ####[facility] [id number] [place] [address] [place] Neutrophils/100 WBC (Bld) 71.9 % Normal [facility] Comment on above: Order Comment: Speci men Type: BLOOD SPECIMENOrdering Facility: [facility] Address: [address] [place] [address] Performed By: #### 5 7021-8 ####[facility] HOSPITALLIA [id number] [place] [address] [place] Nucleated RBC (Bld) [#/Vol] 10*3/uL Normal <0.01 [facility] Comment on above: Order Comment: Speci men Type: BLOOD SPECIMENOrdering Facility: [facility] Address: [address] [place] [address] Performed By: #### 5 7021-8 ####[facility] HOSPITALNCLIA [id number] [place] [address] [place] Nucleated RBC/100 WBC (Bld) [Ratio] 0.0 /100 WBC Normal [facility] Comment on above: Order Comment: Speci men Type: BLOOD SPECIMENOrdering Facility: [facility] Address: [address] [place] [address] Performed By: #### 5 7021-8 ####[facility] HOSPITALLIA [id number] [place] [address] [place] Platelet mean volume (Bld) [Entitic vol] 9.4 fL Normal 9.0-12.7 [facility] Comment on above: Order Comment: Speci men Type: BLOOD SPECIMENOrdering Facility: [facility] Address: [address] [place], [place] [address] Performed By: #### 5 7021-8 ####[facility] [id number] [place] [address] [place] Platelets (Bld) [#/Vol] 221 10*3/uL Normal 150-400 [facility] Comment on above: Order Comment: Speci men Type: BLOOD SPECIMENOrdering Facility: [facility] Address: [address] [place] [address] Performed By: #### 5 7021-8 ####[facility]OSPITALLIA [id number] [place] [address] [place] RBC (Bld) [#/Vol] 4.63 10*6/uL Normal 3.90-5.20 [facility] Comment on above: Order Comment: Speci men Type: BLOOD SPECIMENOrdering Facility: [facility] Address: [address] [place] [address] Performed By: #### 5 7021-8 ####[facility] [id number] [place] [address] [place] WBC (Bld) [#/Vol] 9.17 10*3/uL Normal 3.70-11.00 [facility] Comment on above: Order Comment: Speci men Type: BLOOD SPECIMENOrdering Facility: [facility] Address: [address] [place] [address] Performed By: #### 5 7021-8 ####[facility] CENTERWNCLIA [id number] [place] [address] [place] CNOVSPon 01-17-2024 CNOVSP Normal [facility] metabolic 2000 panelon 01-17-2024 Albumin [Mass/Vol] 4.0 g/dL Normal 3.9-4.9 [facility] Comment on above: Order Comment: Speci men Type: BLOOD SPECIMENOrdering Facility: [facility] Address: [address] [place] [address] Performed By: #### 2 4323-8 ####[facility] HOSPITALLIA [id number] [place] [address] [place] ALP [Catalytic activity/Vol] 101 U/L Normal 34-123 [facility] Comment on above: Order Comment: Speci men Type: BLOOD SPECIMENOrdering Facility: [facility] Address: [address] [place] [address] Performed By: #### 2 4323-8 ####[facility] CENTERWNCLIA [id number] [place] [address] [place] ALT [Catalytic activity/Vol] 14 U/L Normal 7-38 [facility] Comment on above: Order Comment: Speci men Type: BLOOD SPECIMENOrdering Facility: [facility] Address: [address] [place] [address] Performed By: #### 2 4323-8 ####[facility] HOSPITALNCLIA [id number] [place] [address] [place] Anion gap [Moles/Vol] 9 mmol/L Normal 8-15 [facility] Comment on above: Order Comment: Speci men Type: BLOOD SPECIMENOrdering Facility: [facility] Address: [address] [place] [address] Performed By: #### 2 4323-8 ####[facility] MILLWNCLIA [id number] [place] [address] [place] AST [Catalytic activity/Vol] 15 U/L Normal 13-35 [facility] Comment on above: Order Comment: Speci men Type: BLOOD SPECIMENOrdering Facility: [facility] Address: [address] [place] [address] Performed By: #### 2 4323-8 ####[facility] HOSPITALNCLIA [id number] [place] [address] [place] Bilirubin [Mass/Vol] 0.4 mg/dL Normal 0.2-1.3 [facility] Comment on above: Order Comment: Speci men Type: BLOOD SPECIMENOrdering Facility: [facility] Address: [address] [place] [address] Performed By: #### 2 4323-8 ####[facility]OSPITALLIA [id number] [place] [address] [place] Calcium [Mass/Vol] 9.6 mg/dL Normal 8.5-10.2 [facility] Comment on above: Order Comment: Speci men Type: BLOOD SPECIMENOrdering Facility: [facility] Address: [address] [place] [address] Performed By: #### 2 4323-8 ####[facility] HOSPITALNCLIA [id number] [place] [address] [place] Chloride [Moles/Vol] 105 mmol/L Normal 98-107 [facility] Comment on above: Order Comment: Speci men Type: BLOOD SPECIMENOrdering Facility: [facility] Address: [address] [place], [place] [address] Performed By: #### 2 4323-8 ####[facility]ITAL[facility] [id number] [place] [address] [place] CO2 [Moles/Vol] 24 mmol/L Normal 22-30 [facility] Comment on above: Order Comment: Speci men Type: BLOOD SPECIMENOrdering Facility: [facility] Address: [address] [place] [address] Performed By: #### 2 4323-8 ####[facility] [id number] [place] [address] [place] Creatinine [Mass/Vol] 0.83 mg/dL Normal 0.58-0.96 [facility] Comment on above: Order Comment: Speci men Type: BLOOD SPECIMENOrdering Facility: [facility] Address: [address] [place] [address] Performed By: #### 2 4323-8 ####[facility] HOSPITALNCA [id number] [address] [place] Creatinine and Glomerular filtration rate.predicted panel (S/P/Bld) 75 mL/min/1.73m??? Normal >=60 [facility] Comment on above: Order Comment: Speci men Type: BLOOD SPECIMENOrdering Facility: [facility] Address: [address] [place] [address] Result Comment: Brandie mated Glomerular Filtration Rate (eGFR) is calculated using the 2020 CKD-EPI creatinine equation. This equation utilizes serum creatinine, sex, and age as parameters. The creatinine assay has traceable calibration to isotope dilution-mass spectrometry. Refer to KDIGO guidelines for clinical interpretation. In patients with unstable renal function, e.g. those with acute kidney injury, the eGFR may not accurately reflect actual GFR. Performed By: #### 2 4323-8 ####[facility] CENTERWNCLI [id number] [place] [address] [place] Glucose [Mass/Vol] 94 mg/dL Normal 74-99 [facility] Comment on above: Order Comment: Speci men Type: BLOOD SPECIMENOrdering Facility: [facility] Address: [address] [place] [address] Result Comment: The [place] Diabetes Association (ADA) provides guidance for cutoff values for fasting glucose and random glucose. The ADA defines fasting as no caloric intake for at least 8 hours. Fasting plasma glucose results between 100 to 125 mg/dL indicate increased risk for diabetes (prediabetes).Fasting plasma glucose results greater than or equal to 126 mg/dL meet the criteria for diagnosis of diabetes. In the absence of unequivocal hyperglycemia, results should be confirmed by repeat testing. In a patient with classic symptoms of hyperglycemia or hyperglycemic crisis, random plasma glucose results greater than or equal to 200 mg/dL meet the criteria for diagnosis of diabetes.Reference: Standards of Medical Care in Diabetes 2016, [place] [employer] Association. Diabetes Care. 2016.39(Suppl 1). Performed By: #### 2 4323-8 ####[facility] MILLTOWNCLIA [id number] [place] [address] [place] Potassium [Moles/Vol] 3.8 mmol/L Normal 3.7-5.1 [facility] Comment on above: Order Comment: Speci men Type: BLOOD SPECIMENOrdering Facility: [facility] Address: [address] [place] [address] Performed By: #### 2 4323-8 ####[facility] MILLYANDYWNCLIA [id number] [place] [address] [place] Protein [Mass/Vol] 6.5 g/dL Normal 6.3-8.0 [facility] Comment on above: Order Comment: Speci men Type: BLOOD SPECIMENOrdering Facility: [facility] Address: [address] [place], [place] [address] Performed By: #### 2 4323-8 ####[facility] MILLAYNDYWNCLIA [id number] [place] [address] [place] Sodium [Moles/Vol] 138 mmol/L Normal 136-144 [facility] Comment on above: Order Comment: Speci men Type: BLOOD SPECIMENOrdering Facility: [facility] Address: [address] [place] [address] Performed By: #### 2 4323-8 ####[facility] [id number] [place] [address] [place] Urea nitrogen [Mass/Vol] 19 mg/dL Normal 7-21 [facility] Comment on above: Order Comment: Speci men Type: BLOOD SPECIMENOrdering Facility: [facility] Address: [address] [place] [address] Performed By: #### 2 4323-8 ####[facility] HOSPITALNCLI [id number] [place] [address] [place] CNPNon 01-13-2024 CNPN Normal [facility] Culture, Blood (WB)on 2023 CUB Blood cultures x2 fr om two different sites No growth in 5 days. Normal [facility] Comment on above: Performed By: #### L 300.3900, L501.2300, L503.6005, M200.1000, L100.0100 ####[facility] [id number] [facility] [place], [address] CNPNon 01-07-2024 CNPN Normal [facility] CNOVon 01-05-2024 CNOV Normal [facility] Urine Cultureon 01-04-2024 URC Culture exhibits no growth. Normal [facility] Comment on above: Performed By: #### L 400.0001, M100.2200, M100.678 #### [facility] [address] [place], [address] Basic Metabolic Profile (BMP )on 01-03-2024 BUN/CRE 18.7 RATIO Normal - [facility] Comment on above: Performed By: #### L 500.2500, L501.5200, L500.3400 #### [facility] [address] [place], [address] CA,Total 8.9 mg/dL Normal 8.5-10.1 [facility] Comment on above: Performed By: #### L 500.2500, L501.5200, L500.3400 #### [facility] [address] [place], [address] Chloride [Moles/Vol] 107 mmol/L Normal 98-107 [facility] Comment on above: Performed By: #### L 500.2500, L501.5200, L500.3400 #### [facility] [address] [place], [address] CO2 [Moles/Vol] 25.0 mmol/L Normal 21.0-32.0 [facility] Comment on above: Performed By: #### L 500.2500, L501.5200, L500.3400 #### [facility] [address] [place], [address] Creatinine [Mass/Vol] 0.85 mg/dL Normal 0.55-1.02 [facility] Comment on above: Result Comment: The validity of the calculated GFR GFRAA in patients over 70 years has not been determined. Clinical correlation is essential. Performed By: #### L 500.2500, L501.5200, L500.3400 #### [facility] [address] [place], [address] ECRCL 63.44 ml/min Normal [facility] Comment on above: Performed By: #### L 500.2500, L501.5200, L500.3400 #### [facility] [address] [place], [address] EST GFR - AA 84 mL/min Normal >60 [facility] Comment on above: Result Comment: Afri can [place] GFR Calc Performed By: #### L 500.2500, L501.5200, L500.3400 #### [facility] [address] [place], [address] GAP 6 Normal 5-15 [facility] Comment on above: Performed By: #### L 500.2500, L501.5200, L500.3400 #### [facility] [address] [place], [address] GFR/1.73 sq M.predicted among non-blacks MDRD (S/P/Bld) [Vol rate/Area] 70 mL/min/{1.73_m2} Normal >60 [facility] Comment on above: Result Comment: Non- GFR Calc Performed By: #### L 500.2500, L501.5200, L500.3400 #### [facility] [address] [place], [address] Glucose [Mass/Vol] 96 mg/dL Normal 74-106 [facility] Comment on above: Performed By: #### L 500.2500, L501.5200, L500.3400 #### [facility] [address] [place], [address] Potassium [Moles/Vol] 3.7 mmol/L Normal 3.5-5.1 [facility] Comment on above: Performed By: #### L 500.2500, L501.5200, L500.3400 #### [facility] [address] [place], [address] Sodium [Moles/Vol] 138 mmol/L Normal 136-145 [facility] Comment on above: Performed By: #### L 500.2500, L501.5200, L500.3400 #### [facility] [address] [place], [address] Urea nitrogen [Mass/Vol] 16 mg/dL Normal 7-18 [facility] Comment on above: Performed By: #### L 500.2500, L501.5200, L500.3400 #### [facility] [address] [place], [address] CBC W/Diff, Automatedon 10-0 Absolute Lymph 0.83 X10 3/uL Normal 0.83-4.51 [facility] Comment on above: Performed By: #### L 300.3900, L501.2300, L503.6005, M200.1000, L100.0100 ####[facility] [address] [place], [address] Absolute Neut 20.1 X10 3/uL High 2.0-7.7 [facility] Comment on above: Performed By: #### L 300.3900, L501.2300, L503.6005, M200.1000, L100.0100 ####[facility] [address] [place], [address] CNPNon 01-03-2024 CNPN Normal [facility] Chest PA and Lateralon 01-02 Chest PA and Lateral [facility] Services [address] [place] [address] Chest PA and Lateral MR#: [id number] Acct: [id number] Name: RADHA WITT Rep #: [id number] : 1950 F 73 From: Iban koehler MD PCP: Dr. Luna Cope MD Status: REG ER Study: Chest PA and Lateral Date of Exam: 01/03/24 Exam# [id number] Ordering Dr: [place] [id number] STUDY: X-RAY CHEST REASON FOR EXAM: Female, 73 years old. Fever . Patient is on chemotherapy. TECHNIQUE: PA and lateral views of the chest. COMPARISON: Comparison is made with prior study May 20, 2015. FINDINGS: Surgical clips are seen in the left axilla and overlying the left breast. Hyperinflation. The lungs are clear. No pulmonary infiltrate is seen. There is no demonstrated pleural abnormality. Normal size heart. Normal mediastinum and herson. Normal visualized pulmonary arteries. There is atherosclerotic tortuosity of the aortic arch and descending thoracic aorta. There are degenerative changes of the visualized thoracic spine. Normal visualized ribs, clavicles, and shoulders. There is no demonstrated abnormality of the visualized soft tissue structures of the upper abdomen. RAD/Chest PA and Lateral IMPRESSION: Hyperinflation. No acute infiltrate is seen. Electronically Signed: Iban Baez MD at 9:41 EDT , CC: Dr. Layla Barajas DO; Dr. Luna Cope MD Integrity Director: Signed Normal [facility] Emergency Department Summary on 01-03-2024 Emergency Department Summary [facility] Medical Records Department [address] [place] [address] Emergency Department Summary 01/03/24 MR#: [id number] Acct: [id number] Name: RADHA WITT Rep #: [id number] : 1950 73 From: Layla Barajas DO PCP: Dr. Luna Cope MD Status:DEP ER Location: ED HPI History of Present Illness Chief Complaint: Fever Informant: patient and family Narrative Narrative: 73-year-old female brought to the emergency room by family out of concern for fever. Patient currently undergoing chemotherapy with [facility] for breast cancer. She is a patient of Dr. Iglesias. Patient states that she got her first chemotherapy about 3 weeks ago and her second chemotherapy on Saturday. She does not believe that she is neutropenic. She states that Saturday she was doing well Saturday developed some anorexia. Last night around midnight she developed temperature of 100.5-100.9. She spoke with the on-call doctor who advised her to come to emergency. She states that she does recall on Saturday having some incontinence but none since. She denies any cough sore throat mouth pain runny nose earache or rashes. She does not have a port. She notes the IV site on her right hand looks fine. Triage temperature [facility].8[facility] Nonrheumatic mitral (valve) prolapse Diverticulitis Non-rheumatic tricuspid valve insufficiency Pure hypercholesterolemia Essential hypertension Chest pain, precordial Chest pain, unspecified Palpitations Nonrheumatic mitral valve prolapse Hypertension Hyperlipidemia Home Medications ???Medication ???Instructions ???Recorded ???Last Taken ???Type acetaminophen 500 mg capsule 500 mg PO Q6H PRN Pain 07/13/19 Unknown History aspirin 81 mg tablet,delayed 81 mg PO DAILY 07/13/19 Unknown History release (Adult Low Dose Aspirin) butalbital-acetaminophe n-caffeine 1 cap PO Q6H PRN Migraine Headache 07/13/19 Unknown History 50 mg-300 mg-40 mg capsule multivitamin 1 tab PO DAILY 07/13/19 Unknown History zinc 50 mg tablet (Chelated Zinc) 50 mg PO DAILY 07/13/19 Unknown History calcium citrate malate-vitamin D3 1 tab PO BID 09/11/21 Unknown History 500 mg-200 unit tablet atorvastatin 10 mg tablet 10 mg PO QHS #90 tabs 04/22/23 Unknown Rx metoprolol succinate 50 mg 50 mg PO DAILY #90 tabs 04/22/23 Unknown Rx tablet,extended release 24 hr Allergy/AdvReac Type Severity Reaction Status Date / Time adhesive tape Allergy Rash Verified 01/03/24 07:25 Tetracyclines Allergy Rash Verified 01/03/24 07:25 Family History Father CAD (coronary artery disease) HX CABG Afib HX ablation x2 Hypertension Diabetes Sister Myocardial infarction Surgical History History of partial colectomy ( 04/2021) HX: benign breast biopsy History of hysterectomy History of tonsillectomy ( 1956) Social History Smoking Status: Never smoker alcohol intake: never substance use type: does not use caffeine: Yes Type: carbonated beverages what type of physical activity do you participate in: walking frequency: daily duration: < 15 minutes/day seatbelt use: always do you feel safe at home: Yes ROS ROS ED Constitutional Constitutional ED: Reports fever(s); Denies chills or weight loss Eyes Eyes: Denies change in vision or diplopia ENT ENT ED: Reports other Details: No mouth pain ; Denies ear pain, rhinorrhea or sore throat Cardiovascular Cardiovascular: Denies chest pain, orthopnea, palpitations or racing heartbeat Respiratory/Chest Respiratory/Chest: Denies cough, dyspnea or orthopnea Gastrointestinal Gastrointestinal: Denies abdominal pain, diarrhea, nausea or vomiting Genitourinary Genitourinary ED: Reports other Details: Incontinence 2 days ago ; Denies dysuria, hematuria or urinary frequency Musculoskeletal Musculoskeletal: Denies arthralgias, back pain, myalgias or neck pain Integumentary Denies abscess or rash Neurologic Neurologic: Denies headache(s), paresthesias or weakness Psychiatric Psychiatric: Denies anxiety, depression, suicidal ideation or suicidal thoughts Endocrine Endocrinology: Denies polydipsia, polyphagia or polyuria Allergic/Immunologic Allergic/Immunologic ED: Denies mouth swelling, tongue swelling or urticaria EXAM Physical Exam Const Vital Signs: 01/03/24 07:22 01/03/24 07:25 01/03/24 07:36 Temperature 98.8 F 98.8 F Temperature Source Oral Oral Pulse Rate 88 88 Respiratory Rate 16 16 Respiratory Effort Normal Non-Labored Respiratory Pattern Normal Blood Pressure 139/85 H 139/85 H Blood Pr (more content not included)... Normal [facility] Lactic Acidon 01-03-2024 Lactate [Moles/Vol] 1.1 mmol/L Normal 0.4-1.9 [facility] Comment on above: Order Comment: Y Performed By: #### L 300.3900, L501.2300, L503.6005, M200.1000, L100.0100 ####[facility] [address] [place], [address] Liver Profileon 01-03-2024 Albumin [Mass/Vol] 3.6 g/dL Normal 3.2-5.0 [facility] Comment on above: Performed By: #### L 500.2500, L501.5200, L500.3400 #### [facility] [address] [place], [address] ALK P 113 U/L Normal 45-117 [facility] Comment on above: Performed By: #### L 500.2500, L501.5200, L500.3400 #### [facility] [address] [place], [address] ALT [Catalytic activity/Vol] 23 U/L Normal 13-56 [facility] Comment on above: Performed By: #### L 500.2500, L501.5200, L500.3400 #### [facility] [address] [place], [address] AST [Catalytic activity/Vol] 18 U/L Normal 15-37 [facility] Comment on above: Performed By: #### L 500.2500, L501.5200, L500.3400 #### [facility] [address] [place], [address] Bilirubin [Mass/Vol] 0.80 mg/dL Normal 0.20-1.00 [facility] Comment on above: Result Comment: For patients on eltrombopag therapy, use of Dimension [place] TBIL is not recommended. Performed By: #### L 500.2500, L501.5200, L500.3400 #### [facility] [address] [place], [address] Bilirubin.direct [Mass/Vol] 0.25 mg/dL Normal 0.00-0.30 [facility] Comment on above: Performed By: #### L 500.2500, L501.5200, L500.3400 #### [facility] [address] [place], [address] Globulin (S) [Mass/Vol] 3.1 g/dL Normal 2.2-4.2 [facility] Comment on above: Performed By: #### L 500.2500, L501.5200, L500.3400 #### [facility] [address] [place], [address] T PROT 6.7 g/dL Normal 6.4-8.2 [facility] Comment on above: Performed By: #### L 500.2500, L501.5200, L500.3400 #### [facility] [address] [place], [address] M100.678on 01-03-2024 M100.678 SARS-CoV-2 (COVID 19 ) Negative INFLUENZA A Negative INFLUENZA B Negative RSV PCR Negative Normal [facility] Comment on above: Performed By: #### L 400.0001, M100.2200, M100.678 #### [facility] [address] [place], [address] Magnesiumon 01-03-2024 Magnesium [Mass/Vol] 2.1 mg/dL Normal 1.6-2.6 [facility] Comment on above: Performed By: #### L 500.2500, L501.5200, L500.3400 #### [facility] [address] [place], [address] Partial Thromboplast Timeon 01-03-2024 aPTT Coag (Bld) [Time] 28.5 s Normal 24.1-36.2 [facility] Comment on above: Order Comment: EZEQUIEL Godfrey PREVIOUS SPECIMEN REJECTED DUE TOHEMOLYSIS. 01/03/24825 [place]. Performed By: #### L 300.3900, L300.4310 ####[facility] [address] [place], [address] Phosphoruson 01-03-2024 Phosphate [Mass/Vol] 2.8 mg/dL Normal 2.5-4.9 [facility] Comment on above: Performed By: #### L 300.3900, L501.2300, L503.6005, M200.1000, L100.0100 ####[facility] [address] [place], [address] Prothrombin Time w/INRon INR Coag (PPP) [Relative time] 1.1 {INR} Normal [facility] Comment on above: Order Comment: REDRA W. PREVIOUS SPECIMEN REJECTED DUE TOHEMOLYSIS. 01/03/24825 [place]. Performed By: #### L 300.3900, L300.4310 ####[facility] [address] [place], [address] PT Coag (PPP) [Time] 13.9 s Normal 11.7-14.9 [facility] Comment on above: Order Comment: REDRA W. PREVIOUS SPECIMEN REJECTED DUE TOHEMOLYSIS. 01/03/24825 [place]. Performed By: #### L 300.3900, L300.4310 ####[facility] [address] [place], [address] INR Normal [facility] Comment on above: Result Comment: This specimen has been REJECTED due to Laboratory criteria: Hemolyzed. LORENZO has been notified of need of recollection. 01/03/24824 [place] Performed By: #### L 300.3900, L501.2300, L503.6005, M200.1000, L100.0100 ####[facility] [address] [place], [address] PROTIME Normal 11.7-14.9 [facility] Comment on above: Result Comment: This specimen has been REJECTED due to Laboratory criteria: Hemolyzed. LORENZO has been notified of need of recollection. 01/03/[address] [place] Performed By: #### L 300.3900, L501.2300, L503.6005, M200.1000, L100.0100 ####[facility] [address] [place], [address] Urinalysis, Completeon 01-02 EPI,SQUAMOUS 0-5 SEEN Normal 5-10 [facility] Comment on above: Order Comment: EDDA CTOR TO SPECIFY Performed By: #### L 400.0001, M100.2200, M100.678 #### [facility] [address] [place], [address] WBC 0-5 SEEN Normal 0-5 [facility] Comment on above: Order Comment: EDDA CTOR TO SPECIFY Performed By: #### L 400.0001, M100.2200, M100.678 #### [facility] [address] [place], [address] BACTERIA 0 SEEN Normal None Seen [facility] Comment on above: Order Comment: EDDA CTOR TO SPECIFY Performed By: #### L 400.0001, M100.2200, M100.678 #### [facility] [address] [place], [address] Mucus Ql (Urine sed) 0 SEEN Normal [facility] Comment on above: Order Comment: EDDA CTOR TO SPECIFY Performed By: #### L 400.0001, M100.2200, M100.678 #### [facility] [address] [place], [address] RBC 0 SEEN Normal 0-5 [facility] Comment on above: Order Comment: EDDA CTOR TO SPECIFY Performed By: #### L 400.0001, M100.2200, M100.678 #### [facility] [address] [place], [address] CBC W Auto Differential pane l (Bld)on 12-31-2023 Basophils (Bld) [#/Vol] 0.08 10*3/uL Normal <0.11 [facility] Comment on above: Order Comment: Speci men Type: BLOOD SPECIMENOrdering Facility: [facility] Address: [address] [place] [address] Performed By: #### 5 7021-8 ####[facility] MILLTOWNCLIA [id number] [place] [address] [place] Basophils/100 WBC (Bld) 1.1 % Normal [facility] Comment on above: Order Comment: Speci men Type: BLOOD SPECIMENOrdering Facility: [facility] Address: [address] [place] [address] Performed By: #### 5 7021-8 ####[facility] MILLWNCLIA [id number] [place] [address] [place] Differential cell count method Nom (Bld) Auto Normal [facility] Comment on above: Order Comment: Speci men Type: BLOOD SPECIMENOrdering Facility: [facility] Address: [address] [place] [address] Performed By: #### 5 7021-8 ####[facility] MILLWNCLIA [id number] [place] [address] [place] Eosinophils (Bld) [#/Vol] 0.05 10*3/uL Normal <0.46 [facility] Comment on above: Order Comment: Speci men Type: BLOOD SPECIMENOrdering Facility: [facility] Address: [address] [place] [address] Performed By: #### 5 7021-8 ####[facility] MILLTOWNCLIA [id number] [place] [address] [place] Eosinophils/100 WBC (Bld) 0.7 % Normal [facility] Comment on above: Order Comment: Speci men Type: BLOOD SPECIMENOrdering Facility: [facility] Address: [address] [place] [address] Performed By: #### 5 7021-8 ####[facility] MILLTOWNCLIA [id number] [place] [address] [place] Erythrocyte distribution width (RBC) [Ratio] 13.9 % Normal 11.5-15.0 [facility] Comment on above: Order Comment: Speci men Type: BLOOD SPECIMENOrdering Facility: [facility] Address: [address] [place] [address] Performed By: #### 5 7021-8 ####[facility] PLACIDAlfred [id number] [place] [address] [place] Hematocrit (Bld) [Volume fraction] 41.2 % Normal 36.0-46.0 [facility] Comment on above: Order Comment: Speci men Type: BLOOD SPECIMENOrdering Facility: [facility] Address: [address] [place] [address] Performed By: #### 5 7021-8 ####[facility] [id number] [place] [address] [place] Hemoglobin (Bld) [Mass/Vol] 13.8 g/dL Normal 11.5-15.5 [facility] Comment on above: Order Comment: Speci men Type: BLOOD SPECIMENOrdering Facility: [facility] Address: [address] [place] [address] Performed By: #### 5 7021-8 ####[facility] [id number] [place] [address] [place] Immature granulocytes (Bld) [#/Vol] 10*3/uL Normal <0.10 [facility] Comment on above: Order Comment: Speci men Type: BLOOD SPECIMENOrdering Facility: [facility] Address: [address] [place] [address] Performed By: #### 5 7021-8 ####[facility] HOS[facility]ITALNCLI [id number] [place] [address] [place] Immature granulocytes/100 WBC (Bld) 0.3 % Normal [facility] Comment on above: Order Comment: Speci men Type: BLOOD SPECIMENOrdering Facility: [facility] Address: [address] [place] [address] Performed By: #### 5 7021-8 ####[facility] [id number] [place] [address] [place] Lymphocytes (Bld) [#/Vol] 1.69 10*3/uL Normal 1.00-4.00 [facility] Comment on above: Order Comment: Speci men Type: BLOOD SPECIMENOrdering Facility: [facility] Address: [address] [place] [address] Performed By: #### 5 7021-8 ####[facility] [id number] [place] [address] [place] Lymphocytes/100 WBC (Bld) 23.7 % Normal [facility] Comment on above: Order Comment: Speci men Type: BLOOD SPECIMENOrdering Facility: [facility] Address: [address] [place] [address] Performed By: #### 5 7021-8 ####[facility] [id number] [place] [address] [place] MCH (RBC) [Entitic mass] 30.3 pg Normal 26.0-34.0 [facility] Comment on above: Order Comment: Speci men Type: BLOOD SPECIMENOrdering Facility: [facility] Address: [address] [place] [address] Performed By: #### 5 7021-8 ####[facility] [id number] [place] [address] [place] MCHC (RBC) [Mass/Vol] 33.5 g/dL Normal 30.5-36.0 [facility] Comment on above: Order Comment: Speci men Type: BLOOD SPECIMENOrdering Facility: [facility] Address: [address] [place] [address] Performed By: #### 5 7021-8 ####[facility] KELLYCONCEPTION JUNCTIONNCSTELLAA [id number] [place] [address] [place] [facility] MCV (RBC) [Entitic vol] 90.5 fL Normal 80.0-100.0 [facility] Comment on above: Order Comment: Speci men Type: BLOOD SPECIMENOrdering Facility: [facility] Address: [address] [place] [address] Performed By: #### 5 7021-8 ####[facility] HOSPITALNCAlfred [id number] [place] [address] [place] Monocytes (Bld) [#/Vol] 0.87 10*3/uL High <0.87 [facility] Comment on above: Order Comment: Speci men Type: BLOOD SPECIMENOrdering Facility: [facility] Address: [address] [place] [address] Performed By: #### 5 7021-8 ####[facility] HOSPITALNCA [id number] [place] [address] [place] Monocytes/100 WBC (Bld) 12.2 % Normal [facility] Comment on above: Order Comment: Speci men Type: BLOOD SPECIMENOrdering Facility: [facility] Address: [address] [place] [address] Performed By: #### 5 7021-8 ####[facility] HOS[facility]ITALNCLIA [id number] [place] [address] [place] Neutrophils (Bld) [#/Vol] 4.43 10*3/uL Normal 1.45-7.50 [facility] Comment on above: Order Comment: Speci men Type: BLOOD SPECIMENOrdering Facility: [facility] Address: [address] [place] [address] Performed By: #### 5 7021-8 ####[facility] HOSPITALLIA [id number] [place] [address] [place] Neutrophils/100 WBC (Bld) 62.0 % Normal [facility] Comment on above: Order Comment: Speci men Type: BLOOD SPECIMENOrdering Facility: [facility] Address: [address] [place] [address] Performed By: #### 5 7021-8 ####[facility] KELLYCONCEPTION JUNCTIONODILON [id number] [place] [address] [place] Nucleated RBC (Bld) [#/Vol] 10*3/uL Normal <0.01 [facility] Comment on above: Order Comment: Speci men Type: BLOOD SPECIMENOrdering Facility: [facility] Address: [address] [place] [address] Performed By: #### 5 7021-8 ####[facility] [id number] [place] [address] [place] Nucleated RBC/100 WBC (Bld) [Ratio] 0.0 /100 WBC Normal [facility] Comment on above: Order Comment: Speci men Type: BLOOD SPECIMENOrdering Facility: [facility] Address: [address] [place] [address] Performed By: #### 5 7021-8 ####[facility] HOSPITALDEIDRE [id number] [place] [address] [place] Platelet mean volume (Bld) [Entitic vol] 9.3 fL Normal 9.0-12.7 [facility] Comment on above: Order Comment: Speci men Type: BLOOD SPECIMENOrdering Facility: [facility] Address: [address] [place] [address] Performed By: #### 5 7021-8 ####[facility]ITALNCLIA [id number] [place] [address] [place] Platelets (Bld) [#/Vol] 362 10*3/uL Normal 150-400 [facility] Comment on above: Order Comment: Speci men Type: BLOOD SPECIMENOrdering Facility: [facility] Address: [address] [place] [address] Performed By: #### 5 7021-8 ####[facility] CENTERWNCLIA [id number] [place] [address] [place] RBC (Bld) [#/Vol] 4.55 10*6/uL Normal 3.90-5.20 [facility] Comment on above: Order Comment: Speci men Type: BLOOD SPECIMENOrdering Facility: [facility] Address: [address] [place] [address] Performed By: #### 5 7021-8 ####[facility]ITALNCENCOMPASS [facility] [id number] [place] [address] [place] WBC (Bld) [#/Vol] 7.14 10*3/uL Normal 3.70-11.00 [facility] Comment on above: Order Comment: Speci men Type: BLOOD SPECIMENOrdering Facility: [facility] Address: [address] [place] [address] Performed By: #### 5 7021-8 ####[facility] HOS[facility]ITALNCLIA [id number] [place] [address] [place] Comprehensive metabolic 2000 panelon 12-31-2023 Albumin [Mass/Vol] 4.2 g/dL Normal 3.9-4.9 [facility] Comment on above: Order Comment: Speci men Type: BLOOD SPECIMENOrdering Facility: [facility] Address: [address] [place] [address] Performed By: #### 2 4323-8 ####[facility]ITALNCLIA [id number] [place] [address] [place] ALP [Catalytic activity/Vol] 100 U/L Normal 34-123 [facility] Comment on above: Order Comment: Speci men Type: BLOOD SPECIMENOrdering Facility: [facility] Address: [address] [place] [address] Performed By: #### 2 4323-8 ####[facility] TREDANI MENDOZATOWNCLIA [id number] [place] [address] [place] ALT [Catalytic activity/Vol] 17 U/L Normal 7-38 [facility] Comment on above: Order Comment: Speci men Type: BLOOD SPECIMENOrdering Facility: [facility] Address: [address] [place] [address] Performed By: #### 2 4323-8 ####[facility] MILLTOWNCLIA [id number] [place] [address] [place] Anion gap [Moles/Vol] 8 mmol/L Normal 8-15 [facility] Comment on above: Order Comment: Speci men Type: BLOOD SPECIMENOrdering Facility: [facility] Address: [address] [place] [address] Performed By: #### 2 4323-8 ####[facility] KELLYWNCLIA [id number] [place] [address] [place] AST [Catalytic activity/Vol] 17 U/L Normal 13-35 [facility] Comment on above: Order Comment: Speci men Type: BLOOD SPECIMENOrdering Facility: [facility] Address: [address] [place] [address] Performed By: #### 2 4323-8 ####[facility] TRE MILLTOWNCLIA [id number] [place] [address] [place] Bilirubin [Mass/Vol] 0.4 mg/dL Normal 0.2-1.3 [facility] Comment on above: Order Comment: Speci men Type: BLOOD SPECIMENOrdering Facility: [facility] Address: [address] [place] [address] Performed By: #### 2 4323-8 ####[facility] CENTERWNCLIA [id number] [place] [address] [place] Calcium [Mass/Vol] 9.2 mg/dL Normal 8.5-10.2 [facility] Comment on above: Order Comment: Speci men Type: BLOOD SPECIMENOrdering Facility: [facility] Address: [address] [place] [address] Performed By: #### 2 4323-8 ####[facility] MILLWNCLIA [id number] [place] [address] [place] Chloride [Moles/Vol] 107 mmol/L Normal 98-107 [facility] Comment on above: Order Comment: Speci men Type: BLOOD SPECIMENOrdering Facility: [facility] Address: [address] [place] [address] Performed By: #### 2 4323-8 ####[facility] HOSPITALLIA [id number] [place] [address] [place] CO2 [Moles/Vol] 23 mmol/L Normal 22-30 [facility] Comment on above: Order Comment: Speci men Type: BLOOD SPECIMENOrdering Facility: [facility] Address: [address] [place] [address] Performed By: #### 2 4323-8 ####[facility] HOSPITALNCLIA [id number] [place] [address] [place] Creatinine [Mass/Vol] 0.80 mg/dL Normal 0.58-0.96 [facility] Comment on above: Order Comment: Speci men Type: BLOOD SPECIMENOrdering Facility: [facility] Address: [address] [place] [address] Performed By: #### 2 4323-8 ####[facility]PITALNCLIA [id number] [place] [address] [place] Creatinine and Glomerular filtration rate.predicted panel (S/P/Bld) 79 mL/min/1.73m??? Normal >=60 [facility] Comment on above: Order Comment: Aubrey dozier Type: BLOOD SPECIMENOrdering Facility: [facility] Address: [address] [place] [address] Result Comment: Brandie mated Glomerular Filtration Rate (eGFR) is calculated using the 2020 CKD-EPI creatinine equation. This equation utilizes serum creatinine, sex, and age as parameters. The creatinine assay has traceable calibration to isotope dilution-mass spectrometry. Refer to KDIGO guidelines for clinical interpretation. In patients with unstable renal function, e.g. those with acute kidney injury, the eGFR may not accurately reflect actual GFR. Performed By: #### 2 4323-8 ####[facility] [id number] [place] [address] [place] Glucose [Mass/Vol] 92 mg/dL Normal 74-99 [facility] Comment on above: Order Comment: Aubrey dozier Type: BLOOD SPECIMENOrdering Facility: [facility] Address: [address] [place] [address] Result Comment: The [place] [employer] (ADA) provides guidance for cutoff values for fasting glucose and random glucose. The ADA defines fasting as no caloric intake for at least 8 hours. Fasting plasma glucose results between 100 to 125 mg/dL indicate increased risk for diabetes (prediabetes).Fasting plasma glucose results greater than or equal to 126 mg/dL meet the criteria for diagnosis of diabetes. In the absence of unequivocal hyperglycemia, results should be confirmed by repeat testing. In a patient with classic symptoms of hyperglycemia or hyperglycemic crisis, random plasma glucose results greater than or equal to 200 mg/dL meet the criteria for diagnosis of diabetes.Reference: Standards of Medical Care in Diabetes 2016, [place] [employer]. Diabetes Care. 2016.39(Suppl 1). Performed By: #### 2 4323-8 ####[facility] [id number] [place] [address] [place] Potassium [Moles/Vol] 4.0 mmol/L Normal 3.7-5.1 [facility] Comment on above: Order Comment: Speci men Type: BLOOD SPECIMENOrdering Facility: [facility] Address: [address] [place], [place] [id number] Performed By: #### 2 4323-8 ####[facility] BHARGAVINCDEIDRE [id number] [place] [id number] [place] Protein [Mass/Vol] 6.4 g/dL Normal 6.3-8.0 [facility] Comment on above: Order Comment: Speci men Type: BLOOD SPECIMENOrdering Facility: [facility] Address: [address] [place] [address] Performed By: #### 2 4323-8 ####[facility]ITALNCLIA [id number] [place] [address] [place] Sodium [Moles/Vol] 138 mmol/L Normal 136-144 [facility] Comment on above: Order Comment: Speci men Type: BLOOD SPECIMENOrdering Facility: [facility] Address: [address] [place] [address] Performed By: #### 2 4323-8 ####[facility] KELLYCONCEPTION JUNCTIONNCLIA [id number] [place] [address] [place] Urea nitrogen [Mass/Vol] 17 mg/dL Normal 7-21 [facility] Comment on above: Order Comment: Speci men Type: BLOOD SPECIMENOrdering Facility: [facility] Address: [address] [place] [address] Performed By: #### 2 4323-8 ####[facility] CENTERWNCLIA [id number] [place] [address] [place] CNPNon 12-30-2023 CNPN Normal [facility] CNTHERAPYon 12-30-2023 CNTHERAPY Normal [facility] CBC W Auto Differential pane l (Bld)on 12-27-2023 Basophils (Bld) [#/Vol] 0.07 10*3/uL Normal <0.11 [facility] Comment on above: Order Comment: Speci men Type: BLOOD SPECIMENOrdering Facility: [facility] Address: [address] [place] [address] Performed By: #### 5 7021-8 ####[facility] TRE MILLTOWNCLIA [id number] [place] [address] [place] Basophils/100 WBC (Bld) 0.9 % Normal [facility] Comment on above: Order Comment: Speci men Type: BLOOD SPECIMENOrdering Facility: [facility] Address: [address] [place] [address] Performed By: #### 5 7021-8 ####[facility] CENTERWNCLIA [id number] [place] [address] [place] Differential cell count method Nom (Bld) Auto Normal [facility] Comment on above: Order Comment: Speci men Type: BLOOD SPECIMENOrdering Facility: [facility] Address: [address] [place] [address] Performed By: #### 5 7021-8 ####[facility] CENTERWNCLIA [id number] [place] [address] [place] Eosinophils (Bld) [#/Vol] 0.03 10*3/uL Normal <0.46 [facility] Comment on above: Order Comment: Speci men Type: BLOOD SPECIMENOrdering Facility: [facility] Address: [address] [place] [address] Performed By: #### 5 7021-8 ####[facility] MILLTOWNCLIA [id number] [place] [address] [place] Eosinophils/100 WBC (Bld) 0.4 % Normal [facility] Comment on above: Order Comment: Speci men Type: BLOOD SPECIMENOrdering Facility: [facility] Address: [address] [place] [address] Performed By: #### 5 7021-8 ####[facility] [id number] [place] [address] [place] Erythrocyte distribution width (RBC) [Ratio] 13.7 % Normal 11.5-15.0 [facility] Comment on above: Order Comment: Speci men Type: BLOOD SPECIMENOrdering Facility: [facility] Address: [address] [place] [address] Performed By: #### 5 7021-8 ####[facility] [id number] [place] [address] [place] Hematocrit (Bld) [Volume fraction] 39.3 % Normal 36.0-46.0 [facility] Comment on above: Order Comment: Speci men Type: BLOOD SPECIMENOrdering Facility: [facility] Address: [address] [place] [address] Performed By: #### 5 7021-8 ####[facility] [id number] [place] [address] [place] Hemoglobin (Bld) [Mass/Vol] 13.5 g/dL Normal 11.5-15.5 [facility] Comment on above: Order Comment: Speci men Type: BLOOD SPECIMENOrdering Facility: [facility] Address: [address] [place] [address] Performed By: #### 5 7021-8 ####[facility] [id number] [place] [address] [place] Immature granulocytes (Bld) [#/Vol] 0.03 10*3/uL Normal <0.10 [facility] Comment on above: Order Comment: Speci men Type: BLOOD SPECIMENOrdering Facility: [facility] Address: [address] [place] [address] Performed By: #### 5 7021-8 ####[facility] [id number] [place] [address] [place] Immature granulocytes/100 WBC (Bld) 0.4 % Normal [facility] Comment on above: Order Comment: Speci men Type: BLOOD SPECIMENOrdering Facility: [facility] Address: [address] [place] [address] Performed By: #### 5 7021-8 ####[facility] [id number] [place] [address] [place] Lymphocytes (Bld) [#/Vol] 1.78 10*3/uL Normal 1.00-4.00 [facility] Comment on above: Order Comment: Speci men Type: BLOOD SPECIMENOrdering Facility: [facility] Address: [address] [place] [address] Performed By: #### 5 7021-8 ####[facility] [id number] [place] [address] [place] Lymphocytes/100 WBC (Bld) 21.9 % Normal [facility] Comment on above: Order Comment: Speci men Type: BLOOD SPECIMENOrdering Facility: [facility] Address: [address] [place] [address] Performed By: #### 5 7021-8 ####[facility] [id number] [place] [address] [place] MCH (RBC) [Entitic mass] 30.8 pg Normal 26.0-34.0 [facility] Comment on above: Order Comment: Speci men Type: BLOOD SPECIMENOrdering Facility: [facility] Address: [address] [place] [address] Performed By: #### 5 7021-8 ####[facility] [id number] [place] [address] [place] MCHC (RBC) [Mass/Vol] 34.4 g/dL Normal 30.5-36.0 [facility] Comment on above: Order Comment: Speci men Type: BLOOD SPECIMENOrdering Facility: [facility] Address: [address] [place] [address] Performed By: #### 5 7021-8 ####[facility] KELLYCONCEPTION JUNCTIONODILON [id number] [place] [address] [place] MCV (RBC) [Entitic vol] 89.5 fL Normal 80.0-100.0 [facility] Comment on above: Order Comment: Speci men Type: BLOOD SPECIMENOrdering Facility: [facility] Address: [address] [place] [address] Performed By: #### 5 7021-8 ####[facility]ITAL[facility]COM[facility] [id number] [place] [address] [place] Monocytes (Bld) [#/Vol] 0.99 10*3/uL High <0.87 [facility] Comment on above: Order Comment: Speci men Type: BLOOD SPECIMENOrdering Facility: [facility] Address: [address] [place] [address] Performed By: #### 5 7021-8 ####[facility] [id number] [place] [address] [place] Monocytes/100 WBC (Bld) 12.2 % Normal [facility] Comment on above: Order Comment: Speci men Type: BLOOD SPECIMENOrdering Facility: [facility] Address: [address] [place] [address] Performed By: #### 5 7021-8 ####[facility]OSPITALLI [id number] [place] [address] [place] Neutrophils (Bld) [#/Vol] 5.24 10*3/uL Normal 1.45-7.50 [facility] Comment on above: Order Comment: Speci men Type: BLOOD SPECIMENOrdering Facility: [facility] Address: [address] [place] [address] Performed By: #### 5 7021-8 ####[facility] KELLYTERRENCEA [id number] [place] [address] [place] Neutrophils/100 WBC (Bld) 64.2 % Normal [facility] Comment on above: Order Comment: Speci men Type: BLOOD SPECIMENOrdering Facility: [facility] Address: [address] [place] [address] Performed By: #### 5 7021-8 ####[facility] HOSPITALODILON [id number] [place] [address] [place] Nucleated RBC (Bld) [#/Vol] 10*3/uL Normal <0.01 [facility] Comment on above: Order Comment: Speci men Type: BLOOD SPECIMENOrdering Facility: [facility] Address: [address] [place] [address] Performed By: #### 5 7021-8 ####[facility] [id number] [place] [address] [place] Nucleated RBC/100 WBC (Bld) [Ratio] 0.0 /100 WBC Normal [facility] Comment on above: Order Comment: Speci men Type: BLOOD SPECIMENOrdering Facility: [facility] Address: [address] [place] [address] Performed By: #### 5 7021-8 ####[facility] HOSPITALSTELLAA [id number] [place] [address] [place] Platelet mean volume (Bld) [Entitic vol] 9.8 fL Normal 9.0-12.7 [facility] Comment on above: Order Comment: Speci men Type: BLOOD SPECIMENOrdering Facility: [facility] Address: [address] [place] [address] Performed By: #### 5 7021-8 ####[facility]OSPITALNCLIA [id number] [place] [address] [place] Platelets (Bld) [#/Vol] 248 10*3/uL Normal 150-400 [facility] Comment on above: Order Comment: Speci men Type: BLOOD SPECIMENOrdering Facility: [facility] Address: [address] [place] [address] Performed By: #### 5 7021-8 ####[facility] CENTERWNCLIA [id number] [place] [address] [place] RBC (Bld) [#/Vol] 4.39 10*6/uL Normal 3.90-5.20 [facility] Comment on above: Order Comment: Speci men Type: BLOOD SPECIMENOrdering Facility: [facility] Address: [address] [place] [address] Performed By: #### 5 7021-8 ####[facility] HOSPITALNCA [id number] [place] [address] [place] WBC (Bld) [#/Vol] 8.14 10*3/uL Normal 3.70-11.00 [facility] Comment on above: Order Comment: Speci men Type: BLOOD SPECIMENOrdering Facility: [facility] Address: [address] [place] [address] Performed By: #### 5 7021-8 ####[facility]OSPITALNCLIA [id number] [place] [address] [place] CNOVSPon 12-27-2023 CNOVSP Normal [facility] Comprehensive metabolic 2000 panelon 12-27-2023 Albumin [Mass/Vol] 4.0 g/dL Normal 3.9-4.9 [facility] Comment on above: Order Comment: Speci men Type: BLOOD SPECIMENOrdering Facility: [facility] Address: [address] [place] [address] Performed By: #### 2 4323-8 ####[facility] HOSPITALNCLIA [id number] [place] [address] [place] ALP [Catalytic activity/Vol] 105 U/L Normal 34-123 [facility] Comment on above: Order Comment: Speci men Type: BLOOD SPECIMENOrdering Facility: [facility] Address: [facility] [place] [address] Performed By: #### 2 4323-8 ####[facility] TRE MILLTOWNCLIA [id number] [place] [address] [place] ALT [Catalytic activity/Vol] 19 U/L Normal 7-38 [facility] Comment on above: Order Comment: Speci men Type: BLOOD SPECIMENOrdering Facility: [facility] Address: [address] [place] [address] Performed By: #### 2 4323-8 ####[facility] CENTERWTXLIA [id number] [place] [address] [place] Anion gap [Moles/Vol] 11 mmol/L Normal 8-15 [facility] Comment on above: Order Comment: Speci men Type: BLOOD SPECIMENOrdering Facility: [facility] Address: [address] [place] [address] Performed By: #### 2 4323-8 ####[facility] TREINTEGRIS B[facility] – ENIDLIA [id number] [place] [address] [place] AST [Catalytic activity/Vol] 15 U/L Normal 13-35 [facility] Comment on above: Order Comment: Speci men Type: BLOOD SPECIMENOrdering Facility: [facility] Address: [address] [place] [address] Performed By: #### 2 4323-8 ####[facility] TREINTEGR[facility] ENIDLIA [id number] [place] [address] [place] Bilirubin [Mass/Vol] 0.4 mg/dL Normal 0.2-1.3 [facility] Comment on above: Order Comment: Speci men Type: BLOOD SPECIMENOrdering Facility: [facility] Address: [address] [place] [address] Performed By: #### 2 4323-8 ####[facility] TRE MILLTOWNCLIA [id number] [place] [address] [place] Calcium [Mass/Vol] 9.4 mg/dL Normal 8.5-10.2 [facility] Comment on above: Order Comment: Speci men Type: BLOOD SPECIMENOrdering Facility: [facility] Address: [address] [place] [address] Performed By: #### 2 4323-8 ####[facility] MILLTOWNCLIA [id number] [place] [address] [place] Chloride [Moles/Vol] 107 mmol/L Normal 98-107 [facility] Comment on above: Order Comment: Speci men Type: BLOOD SPECIMENOrdering Facility: [facility] Address: [address] [place] [address] Performed By: #### 2 4323-8 ####[facility] MILLWNCLIA [id number] [place] [address] [place] CO2 [Moles/Vol] 23 mmol/L Normal 22-30 [facility] Comment on above: Order Comment: Speci men Type: BLOOD SPECIMENOrdering Facility: [facility] Address: [address] [place] [address] Performed By: #### 2 4323-8 ####[facility] MILLTOWNCLIA [id number] [place] [address] [place] Creatinine [Mass/Vol] 0.84 mg/dL Normal 0.58-0.96 [facility] Comment on above: Order Comment: Speci men Type: BLOOD SPECIMENOrdering Facility: [facility] Address: [address] [place] [address] Performed By: #### 2 4323-8 ####[facility] MILLWNCLIA [id number] [place] [address] [place] Creatinine and Glomerular filtration rate.predicted panel (S/P/Bld) 74 mL/min/1.73m??? Normal >=60 [facility] Comment on above: Order Comment: Aubrey dozier Type: BLOOD SPECIMENOrdering Facility: [facility] Address: [address] [place] [address] Result Comment: Brandie mated Glomerular Filtration Rate (eGFR) is calculated using the 2020 CKD-EPI creatinine equation. This equation utilizes serum creatinine, sex, and age as parameters. The creatinine assay has traceable calibration to isotope dilution-mass spectrometry. Refer to KDIGO guidelines for clinical interpretation. In patients with unstable renal function, e.g. those with acute kidney injury, the eGFR may not accurately reflect actual GFR. Performed By: #### 2 4323-8 ####[facility] [id number] [place] [address] [place] Glucose [Mass/Vol] 97 mg/dL Normal 74-99 [facility] Comment on above: Order Comment: Aubrey dozier Type: BLOOD SPECIMENOrdering Facility: [facility] Address: [address] [place] [address] Result Comment: The [place] [employer] (ADA) provides guidance for cutoff values for fasting glucose and random glucose. The ADA defines fasting as no caloric intake for at least 8 hours. Fasting plasma glucose results between 100 to 125 mg/dL indicate increased risk for diabetes (prediabetes).Fasting plasma glucose results greater than or equal to 126 mg/dL meet the criteria for diagnosis of diabetes. In the absence of unequivocal hyperglycemia, results should be confirmed by repeat testing. In a patient with classic symptoms of hyperglycemia or hyperglycemic crisis, random plasma glucose results greater than or equal to 200 mg/dL meet the criteria for diagnosis of diabetes.Reference: Standards of Medical Care in Diabetes 2016, [place] [employer]. Diabetes Care. 2016.39(Suppl 1). Performed By: #### 2 4323-8 ####[facility] [id number] [place] [address] [place] Potassium [Moles/Vol] 4.1 mmol/L Normal 3.7-5.1 [facility] Comment on above: Order Comment: Speci men Type: BLOOD SPECIMENOrdering Facility: [facility] Address: [address] [place] [address] Performed By: #### 2 4323-8 ####[facility] KELLYDaquanNCLIA [id number] [place] [address] [place] Protein [Mass/Vol] 6.2 g/dL Low 6.3-8.0 [facility] Comment on above: Order Comment: Speci men Type: BLOOD SPECIMENOrdering Facility: [facility] Address: [address] [place] [address] Performed By: #### 2 4323-8 ####[facility] [id number] [place] [address] [place] Sodium [Moles/Vol] 141 mmol/L Normal 136-144 [facility] Comment on above: Order Comment: Speci men Type: BLOOD SPECIMENOrdering Facility: [facility] Address: [address] [place] [address] Performed By: #### 2 4323-8 ####[facility] HOSPITALLIA [id number] [place] [address] [place] Urea nitrogen [Mass/Vol] 16 mg/dL Normal 7-21 [facility] Comment on above: Order Comment: Speci men Type: BLOOD SPECIMENOrdering Facility: [facility] Address: [address] [place] [address] Performed By: #### 2 4323-8 ####[facility] [id number] [place] [address] [place] CNPNon 12-18-2023 CNPN Normal [facility] CNPNon 12-12-2023 CNPN Normal [facility] CBC W Auto Differential pane l (Bld)on 12-10-2023 Basophils (Bld) [#/Vol] 0.05 10*3/uL Normal <0.11 [facility] Comment on above: Order Comment: Speci men Type: BLOOD SPECIMENOrdering Facility: [facility] Address: [address] [place] [address] Performed By: #### 5 7021-8 ####[facility] HOSPITALELLENLIA [id number] [place] [address] [place] Basophils/100 WBC (Bld) 0.7 % Normal [facility] Comment on above: Order Comment: Speci men Type: BLOOD SPECIMENOrdering Facility: [facility] Address: [address] [place] [address] Performed By: #### 5 7021-8 ####[facility]OSPITALL[facility] [id number] [place] [address] [place] Differential cell count method Nom (Bld) Auto Normal [facility] Comment on above: Order Comment: Speci men Type: BLOOD SPECIMENOrdering Facility: [facility] Address: [address] [place] [address] Performed By: #### 5 7021-8 ####[facility] [id number] [place] [address] [place] Eosinophils (Bld) [#/Vol] 0.33 10*3/uL Normal <0.46 [facility] Comment on above: Order Comment: Speci men Type: BLOOD SPECIMENOrdering Facility: [facility] Address: [address] [place] [address] Performed By: #### 5 7021-8 ####[facility] HOSPITALLIA [id number] [place] [address] [place] Eosinophils/100 WBC (Bld) 4.5 % Normal [facility] Comment on above: Order Comment: Speci men Type: BLOOD SPECIMENOrdering Facility: [facility] Address: [address] [place] [address] Performed By: #### 5 7021-8 ####[facility] HOSPITALNCLIA [id number] [place] [address] [place] Erythrocyte distribution width (RBC) [Ratio] 13.0 % Normal 11.5-15.0 [facility] Comment on above: Order Comment: Speci men Type: BLOOD SPECIMENOrdering Facility: [facility] Address: [address] [place] [address] Performed By: #### 5 7021-8 ####[facility] [id number] [place] [address] [place] Hematocrit (Bld) [Volume fraction] 49.0 % High 36.0-46.0 [facility] Comment on above: Order Comment: Speci men Type: BLOOD SPECIMENOrdering Facility: [facility] Address: [address] [place] [address] Performed By: #### 5 7021-8 ####[facility] [id number] [place] [address] [place] Hemoglobin (Bld) [Mass/Vol] 16.3 g/dL High 11.5-15.5 [facility] Comment on above: Order Comment: Speci men Type: BLOOD SPECIMENOrdering Facility: [facility] Address: [address] [place] [address] Performed By: #### 5 7021-8 ####[facility] [id number] [place] [address] [place] Immature granulocytes (Bld) [#/Vol] 10*3/uL Normal <0.10 [facility] Comment on above: Order Comment: Speci men Type: BLOOD SPECIMENOrdering Facility: [facility] Address: [address] [place] [address] Performed By: #### 5 7021-8 ####[facility] [id number] [place] [address] [place] Immature granulocytes/100 WBC (Bld) 0.3 % Normal [facility] Comment on above: Order Comment: Speci men Type: BLOOD SPECIMENOrdering Facility: [facility] Address: [address] [place] [address] Performed By: #### 5 7021-8 ####[facility] HOSPITALNCA [id number] [place] [address] [place] Lymphocytes (Bld) [#/Vol] 2.58 10*3/uL Normal 1.00-4.00 [facility] Comment on above: Order Comment: Speci men Type: BLOOD SPECIMENOrdering Facility: [facility] Address: [address] [place] [address] Performed By: #### 5 7021-8 ####[facility] PLACIDAlfred [id number] [place] [address] [place] Lymphocytes/100 WBC (Bld) 35.3 % Normal [facility] Comment on above: Order Comment: Speci men Type: BLOOD SPECIMENOrdering Facility: [facility] Address: [address] [place] [address] Performed By: #### 5 7021-8 ####[facility]ITALNC[facility] [id number] [place] [address] [place] MCH (RBC) [Entitic mass] 30.5 pg Normal 26.0-34.0 [facility] Comment on above: Order Comment: Speci men Type: BLOOD SPECIMENOrdering Facility: [facility] Address: [address] [place] [address] Performed By: #### 5 7021-8 ####[facility]PITALL[facility] [id number] [place] [address] [place] MCHC (RBC) [Mass/Vol] 33.3 g/dL Normal 30.5-36.0 [facility] Comment on above: Order Comment: Speci men Type: BLOOD SPECIMENOrdering Facility: [facility] Address: [address] [place] [address] Performed By: #### 5 7021-8 ####[facility] KELLYDaquanNCDEIDRE [id number] [place] [address] [place] MCV (RBC) [Entitic vol] 91.6 fL Normal 80.0-100.0 [facility] Comment on above: Order Comment: Speci men Type: BLOOD SPECIMENOrdering Facility: [facility] Address: [address] [place] [address] Performed By: #### 5 7021-8 ####[facility] HOSPITALNCDEIDRE [id number] [place] [address] [place] Monocytes (Bld) [#/Vol] 0.58 10*3/uL Normal <0.87 [facility] Comment on above: Order Comment: Speci men Type: BLOOD SPECIMENOrdering Facility: [facility] Address: [address] [place] [address] Performed By: #### 5 7021-8 ####[facility] [id number] [place] [address] [place] Monocytes/100 WBC (Bld) 7.9 % Normal [facility] Comment on above: Order Comment: Speci men Type: BLOOD SPECIMENOrdering Facility: [facility] Address: [address] [place] [address] Performed By: #### 5 7021-8 ####[facility] [id number] [place] [address] [place] Neutrophils (Bld) [#/Vol] 3.74 10*3/uL Normal 1.45-7.50 [facility] Comment on above: Order Comment: Speci men Type: BLOOD SPECIMENOrdering Facility: [facility] Address: [address] [place] [address] Performed By: #### 5 7021-8 ####[facility] CENTERWNCLIA [id number] [place] [address] [place] Neutrophils/100 WBC (Bld) 51.3 % Normal [facility] Comment on above: Order Comment: Speci men Type: BLOOD SPECIMENOrdering Facility: [facility] Address: [address] [place] [address] Performed By: #### 5 7021-8 ####[facility] [id number] [place] [address] [place] Nucleated RBC (Bld) [#/Vol] 10*3/uL Normal <0.01 [facility] Comment on above: Order Comment: Speci men Type: BLOOD SPECIMENOrdering Facility: [facility] Address: [address] [place] [address] Performed By: #### 5 7021-8 ####[facility] [facility] [id number] [place] [address] [place] Nucleated RBC/100 WBC (Bld) [Ratio] 0.0 /100 WBC Normal [facility] Comment on above: Order Comment: Speci men Type: BLOOD SPECIMENOrdering Facility: [facility] Address: [address] [place] [address] Performed By: #### 5 7021-8 ####[facility] [id number] [place] [address] [place] Platelet mean volume (Bld) [Entitic vol] 9.9 fL Normal 9.0-12.7 [facility] Comment on above: Order Comment: Speci men Type: BLOOD SPECIMENOrdering Facility: [facility] Address: [address] [place] [address] Performed By: #### 5 7021-8 ####[facility]ITALNCLI [id number] [place] [address] [place] Platelets (Bld) [#/Vol] 225 10*3/uL Normal 150-400 [facility] Comment on above: Order Comment: Speci men Type: BLOOD SPECIMENOrdering Facility: [facility] Address: [address] [place] [address] Performed By: #### 5 7021-8 ####[facility]ENTERWNCLIA [id number] [place] [address] [place] RBC (Bld) [#/Vol] 5.35 10*6/uL High 3.90-5.20 [facility] Comment on above: Order Comment: Speci men Type: BLOOD SPECIMENOrdering Facility: [facility] Address: [address] [place] [address] Performed By: #### 5 7021-8 ####[facility]PITALNCA [id number] [place] [address] [place] WBC (Bld) [#/Vol] 7.30 10*3/uL Normal 3.70-11.00 [facility] Comment on above: Order Comment: Speci men Type: BLOOD SPECIMENOrdering Facility: [facility] Address: [address] [place] [address] Performed By: #### 5 7021-8 ####[facility]ITALNCLIA [id number] [place] [address] [place] Comprehensive metabolic 2000 panelon 12-10-2023 Albumin [Mass/Vol] 4.5 g/dL Normal 3.9-4.9 [facility] Comment on above: Order Comment: Speci men Type: BLOOD SPECIMENOrdering Facility: [facility] Address: [address] [place] [address] Performed By: #### 2 4323-8 ####[facility]ENTERWNCLIA [id number] [place] [address] [place] ALP [Catalytic activity/Vol] 166 U/L High 34-123 [facility] Comment on above: Order Comment: Speci men Type: BLOOD SPECIMENOrdering Facility: [facility] Address: [address] [place] [address] Performed By: #### 2 4323-8 ####[facility]ENTERWNCLIA [id number] [place] [address] [place] ALT [Catalytic activity/Vol] 141 U/L High 7-38 [facility] Comment on above: Order Comment: Speci men Type: BLOOD SPECIMENOrdering Facility: [facility] Address: [address] [place] [address] Performed By: #### 2 4323-8 ####[facility]IT[facility] [id number] [place] [address] [place] Anion gap [Moles/Vol] 9 mmol/L Normal 8-15 [facility] Comment on above: Order Comment: Speci men Type: BLOOD SPECIMENOrdering Facility: [facility] Address: [address] [place] [address] Performed By: #### 2 4323-8 ####[facility]ITALL[facility] [id number] [place] [address] [place] AST [Catalytic activity/Vol] 63 U/L High 13-35 [facility] Comment on above: Order Comment: Speci men Type: BLOOD SPECIMENOrdering Facility: [facility] Address: [address] [place] [address] Performed By: #### 2 4323-8 ####[facility]ITALNCLIA [id number] [place] [address] [place] Bilirubin [Mass/Vol] 0.4 mg/dL Normal 0.2-1.3 [facility] Comment on above: Order Comment: Speci men Type: BLOOD SPECIMENOrdering Facility: [facility] Address: [address] [place] [address] Performed By: #### 2 4323-8 ####[facility] TRE MILLTOWNCLIA [id number] [place] [address] [place] Calcium [Mass/Vol] 10.2 mg/dL Normal 8.5-10.2 [facility] Comment on above: Order Comment: Speci men Type: BLOOD SPECIMENOrdering Facility: [facility] Address: [address] [place] [address] Performed By: #### 2 4323-8 ####[facility] MILLTOWNCLIA [id number] [place] [address] [place] Chloride [Moles/Vol] 104 mmol/L Normal 98-107 [facility] Comment on above: Order Comment: Speci men Type: BLOOD SPECIMENOrdering Facility: [facility] Address: [address] [place] [address] Performed By: #### 2 4323-8 ####[facility] MILLWNCLIA [id number] [place] [address] [place] CO2 [Moles/Vol] 24 mmol/L Normal 22-30 [facility] Comment on above: Order Comment: Speci men Type: BLOOD SPECIMENOrdering Facility: [facility] Address: [address] [place] [address] Performed By: #### 2 4323-8 ####[facility] MILLTOWNCLIA [id number] [place] [address] [place] Creatinine [Mass/Vol] 0.91 mg/dL Normal 0.58-0.96 [facility] Comment on above: Order Comment: Speci men Type: BLOOD SPECIMENOrdering Facility: [facility] Address: [address] [place], [place] [id number] Performed By: #### 2 4323-8 ####[facility] MILLWNCLIA [id number] [place] [address] [place] Creatinine and Glomerular filtration rate.predicted panel (S/P/Bld) 68 mL/min/1.73m??? Normal >=60 [facility] Comment on above: Order Comment: Aubrey dozier Type: BLOOD SPECIMENOrdering Facility: [facility] Address: [address] [place] [address] Result Comment: Brandie mated Glomerular Filtration Rate (eGFR) is calculated using the 2020 CKD-EPI creatinine equation. This equation utilizes serum creatinine, sex, and age as parameters. The creatinine assay has traceable calibration to isotope dilution-mass spectrometry. Refer to KDIGO guidelines for clinical interpretation. In patients with unstable renal function, e.g. those with acute kidney injury, the eGFR may not accurately reflect actual GFR. Performed By: #### 2 4323-8 ####[facility] [id number] [place] [address] [place] Glucose [Mass/Vol] 93 mg/dL Normal 74-99 [facility] Comment on above: Order Comment: Aubrey dozier Type: BLOOD SPECIMENOrdering Facility: [facility] Address: [address] [place] [address] Result Comment: The [place] [employer] (ADA) provides guidance for cutoff values for fasting glucose and random glucose. The ADA defines fasting as no caloric intake for at least 8 hours. Fasting plasma glucose results between 100 to 125 mg/dL indicate increased risk for diabetes (prediabetes).Fasting plasma glucose results greater than or equal to 126 mg/dL meet the criteria for diagnosis of diabetes. In the absence of unequivocal hyperglycemia, results should be confirmed by repeat testing. In a patient with classic symptoms of hyperglycemia or hyperglycemic crisis, random plasma glucose results greater than or equal to 200 mg/dL meet the criteria for diagnosis of diabetes.Reference: Standards of Medical Care in Diabetes 2016, [place] [employer] Association. Diabetes Care. 2016.39(Suppl 1). Performed By: #### 2 4323-8 ####[facility] [id number] [place] [address] [place] Potassium [Moles/Vol] 3.9 mmol/L Normal 3.7-5.1 [facility] Comment on above: Order Comment: Speci men Type: BLOOD SPECIMENOrdering Facility: [facility] Address: [address] [place] [address] Performed By: #### 2 4323-8 ####[facility] SYDNIEWNCLIA [id number] [place] [address] [place] Protein [Mass/Vol] 6.8 g/dL Normal 6.3-8.0 [facility] Comment on above: Order Comment: Speci men Type: BLOOD SPECIMENOrdering Facility: [facility] Address: [address] [place] [address] Performed By: #### 2 4323-8 ####[facility]ITALNCLIA [id number] [place] [address] [place] Sodium [Moles/Vol] 137 mmol/L Normal 136-144 [facility] Comment on above: Order Comment: Speci men Type: BLOOD SPECIMENOrdering Facility: [facility] Address: [address] [place] [address] Performed By: #### 2 4323-8 ####[facility]ITALNCLIA [id number] [place] [address] [place] Urea nitrogen [Mass/Vol] 15 mg/dL Normal 7-21 [facility] Comment on above: Order Comment: Speci men Type: BLOOD SPECIMENOrdering Facility: [facility] Address: [address] [place], [place] [address] Performed By: #### 2 4323-8 ####[facility]ITALNCLIA [id number] [place] [address] [place] CNPNon 12-05-2023 CNPN Normal [facility] CNPTOUTREACHon 12-03-2023 CNPTOUTREACH Normal [facility] CNOVon 11-29-2023 CNOV Normal [facility] CNOVon 11-27-2023 CNOV Normal [facility] CNOVSPon 11-27-2023 CNOVSP Normal [facility] CNPNon 11-27-2023 CNPN Normal [facility] CNPNon 11-13-2023 CNPN Telephone (GENSF) RADHA WITT ([id number]) 1950 F Date Time Provider Department 11/13/23 MARIAN MOHAMUD During your visit today, we recorded the following information about you: Marian Mohamud RN 11/13/2023 9:47 AM Signed Attempted to reach patient x 3 for post-op follow-up call. Phone line has busy signal each attempt. No other line on file. Marian Mohamud RN Allergies As of Date: 11/13/2023 Noted Allergy Reaction ADHESIVE 10/24/2023 2 - Rash Comments: bandaids TETRACYCLINES 04/19/2004 2 - Rash Date Reviewed: 11/12/2023 Reviewed by: Sanjeev Borrego RN - Fully Assessed Reason for Visit: Post Op Follow Up [3947] Prescriptions as of 11/13/2023 - HYDROcodone-acetaminoph en (NORCO) 5-325 mg per tablet Take 1 tablet by mouth every 6 hours as needed for pain for up to 3 days. - acetaminophen 300 mg-caffeine 40 mg-butalbital 50 mg (FIORICET) per capsule Take 1 capsule by mouth every 4 hours as needed for headache. - aspirin, enteric coated (ASPIRIN, ENTERIC COATED) 81 mg EC tablet Take 81 mg by mouth once daily. - acetaminophen (TYLENOL) 325 mg tablet Take 2 tablets by mouth every 4 hours as needed for pain. - ZINC ORAL Take 50 mg by mouth once daily. - calcium carbonate/vitamin D3 (CALCIUM 600 + D ORAL) Take 1,200 mg by mouth. - atorvastatin 10 mg tablet Take 10 mg by mouth once daily. - metoprolol succinate XL (TOPROL XL) 50 mg ORAL 24 hr tablet Take 1 tablet by mouth once daily. - MULTIVITAMIN TABLET Take one(1) tablet daily. Problem List As Of Date 11/13/2023 Noted Resolved Headache [R51.9] 06/04/2005 07/31/2021 Generalized osteoarthrosis, unspecified site [M*06/04/2005 08/06/2022 Malignant neoplasm of corpus uteri, except isth*09/12/2005 01/26/2021 Backache, unspecified [M54.9] 05/29/2006 05/12/2012 Essential hypertension, benign [I10] 08/09/2006 INSOMNIA NOS [G47.00] 08/09/2006 Diverticulosis [K57.90] 03/22/2009 Hyperlipidemia [E78.5] 07/24/2012 Calcific shoulder tendinitis [M75.30] 07/24/2012 Other osteoporosis without current pathological*05/21/2017 05/28/2017 Osteopenia of multiple sites [M85.89] 05/28/2017 MVP (mitral valve prolapse) [I34.1] 11/19/2017 Osteoarthritis of spine with radiculopathy, lum*10/01/2018 Pain of left hip joint [M25.552] 10/01/2018 07/29/2020 History of uterine cancer [Z85.42] 01/26/2021 Diverticulitis [K57.92] 04/03/2021 08/14/2023 Post-op pain [G89.18] 04/03/2021 07/31/2021 Difficult intravenous access [Z78.9] 04/03/2021 Hypomagnesemia [E83.42] 04/05/2021 04/05/2021 History of partial colectomy [Z90.49] 07/11/2023 LLQ pain [R10.32] 07/11/2023 08/14/2023 Stage 3a chronic kidney disease (HCC) [N18.31] 08/14/2023 Malignant neoplasm of lower-inner quadrant of l*10/13/2023 At risk for lymphedema [Z91.89] 10/13/2023 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) [C50.919*10/13/2023 Abnormal MRI, breast [R92.8] 10/21/2023 PONV (postoperative nausea and vomiting) [R11.2*10/23/2023 Encounter Status:Closed by MARIAN MOHAMUD on 11/13/23 [facility] ANES POSTPROC EVALon 024 ANES POSTPROC EVAL HNO ID: [id number] Author: JONI FRAZIER MD Service: Anesthesiology Author Type: Anesthesiologist Type: Anesthesia Postprocedure Evaluation Filed: 11/12/2023 12:20 Note Text: POST ANESTHESIA EVALUATION NOTE : 1950 Procedure Summary Date: 11/12/23 Room / Location: OR03 / [facility] Anesthesia Start: 736 Anesthesia Stop: 1034 Procedures: MASTECTOMY PARTIAL (Left: Breast) PLACEMENT OF BREAST LOCALIZATION DEVICE(S) PERCUTANEOUS; FIRST LESION, MAMMOGRAPHIC GUIDANCE (Left: Breast) INTRAOPERATIVE ID OF SENTINEL LYMPH NODE(S) INCL'D INJECTION OF NON-RAD DYE WHEN PERFORMED (Left: Axillary) BIOPSY NODE SENTINEL AXILLARY (Left: Axillary) INJECTION PROCEDURE RADIOACTIVE TRACER FOR IDENTIFICATION OF SENTINEL NODE (Left) Diagnosis: 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) (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) [C50.919, Z17.1]) Surgeons: Evita Sanchez DO Responsible Provider: Joni Frazier I, MD Anesthesia Type: general ASA Status: 3 Anesthesia Type: general Airway Type: LMA Last Vitals Vitals Value Taken Time BP 122/68 11/12/23 1215 Temp 36.1 ?C (97 ?F) 11/12/23 1030 Pulse 61 11/12/23 1219 Resp 13 11/12/23 1219 SpO2 96 % 11/12/23 1219 Vitals shown include unfiled device data. Post Anesthesia Patient Status Patient Evaluation: PACU. PACU/ICU Patient Condition: stable. Anticipated Disposition: phase 2 then home. Neurological Status: aware and responsive. Pulmonary Status: breathing comfortably on room air Airway Control: returned to baseline unsupported. Cardiovascular Status: stable. Pain Management: clinically adequate Postoperative Hydration: acceptable. Intraoperative Events: no significant anesthesia events Post Operative Nausea/Vomiting Status: no significant post operative nausea or vomiting Recommendation: continue current plan of care. Anesthesia Observations No Documentation SIGNATURE: Joni Frazier MD PATIENT NAME: Radha Witt DATE: November 12, 2023 TIME: 12:19 PM CSN: [id number] [facility] ANES PRE-OPon 11-12-2023 ANES PRE-OP HNO ID: [id number] Author: JONI FRAZIER MD Service: Anesthesiology Author Type: Anesthesiologist Type: Anesthesia Preprocedure Evaluation Filed: 11/12/2023 07:16 Note Text: ANESTHESIOLOGY DAY OF SURGERY NOTE : 1950 Procedure Information Date/Time: 11/12/23729 Procedures: MASTECTOMY PARTIAL (Left: Breast) PLACEMENT OF BREAST LOCALIZATION DEVICE(S) PERCUTANEOUS; FIRST LESION, MAMMOGRAPHIC GUIDANCE (Left: Breast) INTRAOPERATIVE ID OF SENTINEL LYMPH NODE(S) INCL'D INJECTION OF NON-RAD DYE WHEN PERFORMED (Left: Axillary) BIOPSY NODE SENTINEL AXILLARY (Left: Axillary) - 714 sentinel injection to be done in OR Location: [facility] OR03 / [facility] OR Surgeons: Evita Sanchez DO Estimated body mass index is 25.18 kg/m? as calculated from the following: Height as of 10/24/23: 175.3 cm (5' 9). Weight as of 10/24/23: 77.3 kg (170 lb 8 oz). Most recent hematocrit and potassium results: Hematocrit 45.4 10/23/2023 Potassium 4.3 10/23/2023 Relevant Problems No relevant active problems I - PHYSICAL EVALUATION AIRWAY Patient intubated: No. Tracheostomy tube not present Mallampati: II. TM distance: >3 FB. Neck ROM: full ROM without neurological symptoms. Mouth opening: adequate. Short neck: no. Thick neck: no DENTAL Dental findings: teeth intact. II - ANESTHESIA PLAN ASA Score: 3 Anesthetic Plan: general Airway type: ETT NPO Status: adequate Beta Mona Monitoring Plan Monitoring plan: standard ASA. Post Procedure Analgesic Plan Postoperative analgesic plan: parenteral or oral opioids. Informed Consent Anesthetic risks, benefits, alternatives, personnel and consent discussed: yes. Patient / Responsible Libertarian agrees to proceed: yes Patient / Surrogate agrees to blood products: blood products not planned DNR status not reviewed with patient and/or family prior to surgery. Significant changes in the patient condition since the History and Physical, not otherwise documented in primary service progress note: no. Vitals Value Taken Time BP 135/64 08/13/24 0629 Pulse 56 11/12/23628 Resp 16 11/12/23628 Temp 36 ?C (96.8 ?F) 11/12/23628 SpO2 96 % 11/12/23628 Facility-Administered Medications as of 11/12/2023 Medication Dose Route Frequency - lidocaine (PF) 10 mg/mL (1 %) 1-2 mg injection (XYLOCAINE) 0.1-0.2 mL INTRADERMAL PRN - lactated ringers iv infusion 5-30 mL/hr INTRAVENOUS CONTINUOUS - NaCl 0.9% iv flush bag 20 mL INTRAVENOUS PRN - ceFAZolin iv piggyback 2 g in D5W (iso-osmotic) 100 mL (ANCEF) 2 g INTRAVENOUS Pre-Op Once - [COMPLETED] acetaminophen 1,000 mg tab(s) (TYLENOL) 1,000 mg ORAL Pre-Op Once - [COMPLETED] promethazine 12.5 mg tab(s) (PHENERGAN) 12.5 mg ORAL Pre-Op Once Outpatient Medications as of 11/12/2023 Medication Sig - aspirin, enteric coated (ASPIRIN, ENTERIC COATED) 81 mg EC tablet Take 81 mg by mouth once daily. - ZINC ORAL Take 50 mg by mouth once daily. - calcium carbonate/vitamin D3 (CALCIUM 600 + D ORAL) Take 1,200 mg by mouth. - atorvastatin 10 mg tablet Take 10 mg by mouth once daily. - metoprolol succinate XL (TOPROL XL) 50 mg ORAL 24 hr tablet Take 1 tablet by mouth once daily. - MULTIVITAMIN TABLET Take one(1) tablet daily. - acetaminophen (TYLENOL) 325 mg tablet Take 2 tablets by mouth every 4 hours as needed for pain. I have interviewed and examined the patient. I have reviewed the medical record and/or the pre-anesthesia evaluation, pertinent labs, and test results. This contains updated information obtained within 48 hours of Surgery/Procedure. SIGNATURE: Joni Frazier MD PATIENT NAME: Radha Witt DATE: November 12, 2023 TIME: 7:15 AM CSN: [id number] [facility] BRIEF OP NOTon 11-12-2023 BRIEF OP NOT HNO ID: [id number] Author: EVITA SANCHEZ DO Service: General Surgery Author Type: Physician Type: Brief Op Note Filed: 11/12/2023 10:33 Note Text: BRIEF OPERATIVE / PROCEDURE NOTE LOG ID: [id number] SURGERY/PROCEDURE DATE: 11/12/2023 INCISION/PROCEDURE START TIME: 8:05 AM INCISION CLOSE/PROCEDURE END TIME: SURGEON(S)/PROCEDURALIS T(S) AND ELEVATED WORK PLATFORM OPERATOR(S): Surgeon(s) and Role: * Evita Sanchez, DO - Primary * Melissa Stanton DO - Resident - Assisting Physician Steel Turner: Pk Ramsey PA-C SURGERY/PROCEDURE(S): MASTECTOMY PARTIAL: (CPT?) PLACEMENT OF BREAST LOCALIZATION DEVICE(S) PERCUTANEOUS; FIRST LESION, MAMMOGRAPHIC GUIDANCE: 04521 (CPT?) INTRAOPERATIVE ID OF SENTINEL LYMPH NODE(S) INCL'D INJECTION OF NON-RAD DYE WHEN PERFORMED: 63915 (CPT?) BIOPSY NODE SENTINEL AXILLARY: 73162 (CPT?) INJECTION PROCEDURE RADIOACTIVE TRACER FOR IDENTIFICATION OF SENTINEL NODE: 11943 (CPT?) ANESTHESIA: General FINDINGS: Barbell clip and norma enforcement manager in specimen MRI biopsy clip in medial margin specimen LEFT axillary SLN x3 ESTIMATED BLOOD LOSS: 10 mls SPECIMENS: ID Type Source Tests Collected by Time Destination A : 3 sentinel lymph node Tissue Lymph Node, Left, [place] SURGICAL PATHOLOGY Evita Sanchez A, DO 11/12/2023 8:24 AM B : left breast lumpectomy at 8oclock, short stitch= superior, long stitch= lateral Tissue Breast, Left, Lumpectomy SURGICAL PATHOLOGY Evita Sanchez A, DO 11/12/2023 9:38 AM C : ANTERIOR, ink coronado new margin Tissue Breast, Margin, Left, Excision SURGICAL PATHOLOGY Evita Sanchez A, DO 11/12/2023 9:44 AM D : INFERIOR, ink coronado new margin Tissue Breast, Margin, Left, Excision SURGICAL PATHOLOGY Evita Sanchez A, DO 11/12/2023 9:44 AM E : LATERAL, ink coronado new margin Tissue Breast, Margin, Left, Excision SURGICAL PATHOLOGY Evita Sanchez A, DO 11/12/2023 9:44 AM F : MEDIAL, ink coronado new margin Tissue Breast, Margin, Left, Excision SURGICAL PATHOLOGY Evita Sanchez A, DO 11/12/2023 9:44 AM G : POSTERIOR, ink coronado new margin Tissue Breast, Margin, Left, Excision SURGICAL PATHOLOGY DanielEvita beckford DO 11/12/2023 9:44 AM H : SUPERIOR, ink coronado new margin Tissue Breast, Margin, Left, Excision SURGICAL PATHOLOGY Evita Sanchez DO 11/12/2023 9:44 AM COMPLICATIONS: None CLOSURE TECHNIQUE: Primary PRE-OP/PRE-PROCEDURE DIAGNOSIS: LEFT breast cancer POST-OP/POST-PROCEDURE DIAGNOSIS: Same as Preop Patient was accompanied to the next level of care by a licensed practitioner from the surgical team pending completion of this brief op note (or operative note) SIGNATURE: Evita Sanchez DO PATIENT NAME: Radha Witt DATE: November 12, 2023 TIME: 10:16 AM [facility] NURSING PROGon 11-12-2023 NURSING PROG HNO ID: [id number] Author: LANCE JOYNER, RN Service: Nursing Author Type: Registered Nurse Type: Nursing Progress Note Filed: 11/12/2023 06:15 Note Text: READINESS TO LEARN COGNITIVE ABILITY: Alert and oriented MOTIVATION TO LEARN: Eager Interested FAMILY SUPPORT: None - Unavailable/disinterest ed INSTRUCTION PROVIDED TO: Patient PATIENT LEARNS BEST BY: Verbal Instruction FACTORS AFFECTING LEARNING: None PHYSICAL LIMITATIONS AFFECTING LEARNING: None LEARNING RESPONSE DIAGNOSIS: ADULT: Well Adult PATIENT/FAMILY RESPONSE: Verbalizes understanding of: PRE-OPERATIVE INSTRUCTIONS-Correct action to take to follow pre-operative instructions PRE-PROCEDURE INSTRUCTIONS-Correct action to take to follow pre-procedure instructions METHOD OF INSTRUCTION: Verbal instruction FOLLOW-UP PLAN: Patient instructed to call with any further issues INSTRUCTIONAL AIDS USED: NA SUPPLEMENTAL MATERIAL PROVIDED TO PATIENT: None REFERRAL (RECOMMENDATION): None Electronically Signed By: Lance Joyner [facility] OPERATIVE NOon 11-12-2023 OPERATIVE NO HNO ID: [id number] Author: EVITA SANCHEZ DO Service: General Surgery Author Type: Physician Type: Operative Report Filed: 11/20/2023 12:26 Note Text: [facility] - Operative Report RADHA WITT : 1950 AGE: 73. SEX: F PATIENT TYPE: A HOSP SVC: GEN SURG LOCATION: [facility] ATTENDING PHYSICIAN: EVITA SANCHEZ CSN NUMBER: [id number] DATE OF SURGERY/PROCEDURE: 11/12/2023 INCISION/PROCEDURE START TIME: 8:05 AM INCISION CLOSE/PROCEDURE END TIME: 10:19 AM PREOPERATIVE DIAGNOSIS: Left breast cancer. POSTOPERATIVE DIAGNOSIS: Left breast cancer. SURGEON: Evita Sanchez D.O ELEVATED WORK PLATFORM OPERATOR: 1. Melissa Stanton, - Visiting Resident 2. Pk ARREAGA Please note, there was no available resident qualified to assist with the case. SURGERY/PROCEDURE: 1. Left breast NORMA Learning Facilitator localized partial mastectomy. 2. Left breast injection of radiotracer for nuclear medicine. 3. Left breast injection of blue dye for lymphatic mapping. 4. Left sentinel lymph node biopsy. ANESTHESIA: General INDICATIONS: The patient is a 73-year-old female, who presented with a left breast mass in the central lower quadrant. Biopsy showed invasive cancer, and clinically her lymph nodes appeared negative. Prior to surgery, she had a NORMA Learning Facilitator placed to localize the area of concern and the NORMA Learning Facilitator was approximately 1 cm lateral and inferior to her biopsy clip. She then had a MRI and biopsy for which this transversed the norma enforcement manager track. The risks and benefits of surgery were discussed with her and she agreed to proceed. DESCRIPTION OF PROCEDURE: Preoperatively in the holding area, a time-out was performed. The patient was identified by name and date. Site and surgery were confirmed. She was brought to the operating room, placed in supine position on the operating room table. General anesthesia was induced. Her left breast and chest was prepped and draped in the usual sterile fashion. This was significant bruising noted from her recent right breast biopsy x2 a week before. In a sterile fashion, I performed lymphatic mapping of the left breast. I injected 2 mL of Isosulfan blue periareolar at the 3 o'clock position and Lymphoseek nuclear medicine at the 12 o'clock position into the dermal area. The breast was massaged for approximately 5 minutes for lymphatic mapping. The sentinel lymph node portion of the surgery was performed first. An oblique incision was made in the left axilla and this was carried down. The clavipectoral fascia was identified and incised. Using the Neoprobe, an area was identified as hot. Upon dissection, there were 3 hot and blue lymph nodes identified. Any lymphatics or blood vessels going to or from the lymph node were clipped and ligated. The lymph nodes were removed in their entirety and sent to Pathology for permanent sectioning. There were no other hot, blue, or abnormally palpable lymph nodes identified. The wound was copiously irrigated, hemostasis was achieved. 10 cc of 0.25% Marcaine was injected for local anesthesia. The clavipectoral fascia was reapproximated with interrupted 2-0 Vicryl in layers. The dermis was reapproximated with interrupted 3-0 Vicryl and the skin was closed with 4-0 Monocryl. Attention was then turned to the left breast. Using the [employer]ilitator localizer, there was no signal that was able to be identified in the left breast for the [employer] Learning Facilitator. Next, an ultrasound was used and the [employer] Learning Facilitator and the clip were not able to be identified nor mass due to the hematoma in this area. At this point, the C-arm x-ray was brought into the room, and using imaging guidance, the [employer] Learning Facilitator and the clip were able to be identified in the left breast at the 6 o'clock position. The metal markers were used to outline a dissection plane around both the [employer] Learning Facilitator and the clip. An inframammary incision was made and this was carried inferiorly and anteriorly to identify the area of concern. Using the C-arm as guidance, the tissue surrounding both the [employer] Learning Facilitator and the clip was circumferentially removed in its entirety. It was oriented with short stitch superior, long stitch lateral, and painted per Pathology protocol. This was sent for intraoperative radiograph, which I personally viewed in the Trident machine, confirmed that the NORMA Learning Facilitator and the barbell clip were withinthe specimen. The barbell clip marking the known cancer. Additional circumferential cavity shaved margins were taken which included a new superior, inferior, medial, lateral, anterior and posterior margin with posterior being on the chest wall, ink coronado new margin. The specimen margins were radiographed and the medial margin contained the recent MRI biopsy clip in the specimen and this was noted and sent to Pathology. The wound was copiously irrigated, hemostasis was achieved. 20 mL of 0.25% Marcaine was injected for local anesthetic. Loca (more content not included)... [facility] PT EDon 11-12-2023 PT ED HNO ID: [id number] Author: SANJEEV BORREGO RN Service: Nursing Author Type: Registered Nurse Type: Patient Education Filed: 11/12/2023 13:22 Note Text: PATIENT EDUCATION TOPIC: PROCEDURE / SURGERY: Post-op Teaching: Med Administration, Symptom Management, and Wound Care PATIENT NAME: Radha Witt PATIENT LOCATION: [facility] OR POOL/[facility] OR POOL READINESS TO LEARN COGNITIVE ABILITY: Alert and oriented MOTIVATION TO LEARN: Interested FAMILY SUPPORT: High - Very involved in pt care INSTRUCTION PROVIDED TO: Patient, Spouse, and Son PATIENT LEARNS BEST BY: Written Instruction - Hand-outs Verbal Instruction FACTORS AFFECTING LEARNING: None PHYSICAL LIMITATIONS AFFECTING LEARNING: None LEARNING RESPONSE DIAGNOSIS: ADULT: Well Adult PATIENT/FAMILY RESPONSE: Information received as demonstrated by interest and questions METHOD OF INSTRUCTION: Written instruction/Handouts Verbal instruction FOLLOW-UP PLAN: Complete - No need for follow-up INSTRUCTIONAL AIDS USED: NA SUPPLEMENTAL MATERIAL PROVIDED TO PATIENT: None REFERRAL (RECOMMENDATION): None Electronically Signed By: Sanjeev Borrego [facility] SURGICAL PATHOLOGYon 024 ADDENDUM 1: [facility] Comment on above: Order Comment: Speci jacoby Type: TISSUE SPECIMEN Ordering Facility: [facility] Address: [address] [place] [address] Result Comment: This addendum is to report results of immunohistochemical studies with no changes in the final interpretations. 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 Addendum electronically signed by Meagan Kowalski MD on 11/21/2023 at 9:17 AM Performed By: #### S #### [facility] CLIA [id number] [address] [place] [address] OF [facility] BLOCK FOR ADDITIONAL BIOMARKERS/MOLECULAR STUDIES [id number] [facility] Comment on above: Order Comment: Denisei jacoby Type: TISSUE SPECIMEN Ordering Facility: [facility] Address: [address] [place] [address] Performed By: #### S #### [facility] CLIA [id number] [address] [place] [address] STATES OF [place] CASE REPORT [facility] Comment on above: Order Comment: Denisei men Type: TISSUE SPECIMEN Ordering Facility: [facility] Address: [address] [place] [address] Result Comment: Surg [facility] Pathology Report Case: [id number] Authorizing Provider: Evita Sanchez DO Collected: 11/12/2023 08:24 AM Ordering Location: [facility] Received: 11/12/2023 10:33 AM Operating Room Pathologist: Meagan Kowalski MD Specimens: A) - Lymph Node, Left, [place], 3 sentinel lymph node B) - Breast, Left, Lumpectomy, left breast lumpectomy at 8oclock, short stitch= superior, long stitch= lateral C) - Breast, Margin, Left, Excision, ANTERIOR, ink coronado new margin D) - Breast, Margin, Left, Excision, INFERIOR, ink coronado new margin E) - Breast, Margin, Left, Excision, LATERAL, ink coronado new margin F) - Breast, Margin, Left, Excision, MEDIAL, ink coronado new margin G) - Breast, Margin, Left, Excision, POSTERIOR, ink coronado new margin H) - Breast, Margin, Left, Excision, SUPERIOR, ink coronado new margin Performed By: #### S #### [facility] CLIA [id number] [address] [place] [address] [place] CLINICAL HISTORY Normal [facility] Comment on above: Order Comment: Speci men Type: TISSUE SPECIMEN Ordering Facility: [facility] Address: [address] [place] [address] Result Comment: Pre- op diagnosis: 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) [C50.919, Z17.1] Performed By: #### S #### [facility] CLIA [id number] [address] [place] [address] [place] DIAGNOSIS COMMENT Normal [facility] Comment on above: Order Comment: Speci men Type: TISSUE SPECIMEN Ordering Facility: [facility] Address: [address] [place] [address] Result Comment: Part B was entirely submitted for microscopic examination and shows a minute focus of invasive carcinoma (<1 mm in size) at the site of biopsy changes and fibrous scarring (multiple deeper levels examined), status post biopsy. The patient's prior biopsy case [id number] was retrieved and reviewed, with the diagnostic concordance. Findings from the biopsy case [id number] (histologic type, histologic grade, and tumor size) are incorporated in the synoptic report. Performed By: #### S #### [facility] CLIA [id number] [address] [place] [address] [place] FINAL DIAGNOSIS Normal [facility] Comment on above: Order Comment: Speci men Type: TISSUE SPECIMEN Ordering Facility: [facility] Address: [address] [place] [address] Result Comment: A: L ymph node, left sentinel, 3 nodes, excision: - 3 lymph nodes, negative for carcinoma (0/3). B: Breast, left, 8:00, lumpectomy: - Minute focus of invasive ductal carcinoma, status post biopsy, see comment and synoptic report. - Final margins, inclusive of parts C-H, are negative for carcinoma. - Norma enforcement manager device, biopsy clip, and biopsy site changes are identified. C: Breast, left, new anterior margin, excision: - Final margin is negative for carcinoma. D: Breast, left, new inferior margin, excision: - Final margin is negative for carcinoma. E: Breast, left, new lateral margin, excision: - Final margin is negative for carcinoma. F: Breast, left, new medial margin, excision: - Mammary tissue with fibrocystic changes and usual ductal hyperplasia. - Final margin is negative for carcinoma. - Biopsy clip is identified. G: Breast, left, new posterior margin, excision: - Final margin is negative for carcinoma. H: Breast, left, new superior margin, excision: - Final margin is negative for carcinoma. Performed By: #### S #### [facility] CLIA [id number] [address] [place] [address] [place] FINAL PERFORMING LAB Normal [facility] Comment on above: Order Comment: Speci men Type: TISSUE SPECIMEN Ordering Facility: [facility] Address: [address] [place] [address] Result Comment: Diag nostic interpretation performed at [facility], [address] [place], [place] [id number] CLIA# [id number] Research Electrician: Fernando Boswell M.D. Performed By: #### S #### [facility] CLIA [id number] [address] [place] [address] [id number] [place] [address] [place] GROSS DESCRIPTION Normal [facility] Comment on above: Order Comment: Speci men Type: TISSUE SPECIMEN Ordering Facility: [facility] Address: [address] [place] [address] Result Comment: A. L ymph Node, Left, [place] Received in formalin designated 3 sentinel lymph node left are 2 segments of fibrofatty tissue which aggregate to 5 x 1.8 x 1 cm. Sectioning and palpation reveals 3 briseno-pink lymph nodes measuring up to 1.5 cm in greatest dimension. The specimen is totally submitted as follows: A1 1 lymph node serially sectioned, A2 1 lymph node serially sectioned, A3 1 lymph node serially sectioned, A4 remainder of specimen. B. Breast, Left, Lumpectomy Received in formalin in a Adam device designated left breast lumpectomy at 8:00 is an oriented (short-superior, long-lateral) segment of fibrofatty tissue which weighs 20.5 g and measures 5.4 cm (medial to lateral) x 5 cm (superior to inferior) x 1.2 cm (anterior to posterior). Examination of a radiograph of the specimen provided by the surgeon and uploaded into [employer] reveals a Norma enforcement manager reflector and biopsy clip present. The specimen is received previously inked by the surgeon anterior-yellow, posterior-black, superior-blue, inferior-green, medial-orange, and lateral-red. The specimen is serially sectioned from medial to lateral into 12 slices. Examination of the slices reveals a white firm ill-defined area, possible mass, from slice 3 to slice 5 which measures 0.9 cm (medial to lateral) x 0.5 cm (superior to inferior) x 0.4 cm (anterior to posterior) and is located 0.4 cm to the anterior margin, 0.7 cm to the posterior margin, 1.3 cm to the superior margin, 1.7 cm to the medial margin, and greater than 2 cm to the inferior and lateral margins. A Norma enforcement manager reflector is identified within this location in slice 4. A barbell shaped biopsy clip is in the flanking slice in slice 2 medially. The remainder the cut surface is fatty with irregular white fibrous streaks. The specimen is totally submitted as follows: B1 slice 3 area of interest with perpendicular superior, anterior, and posterior margins, B2 slice 4 area of interest with perpendicular superior, anterior, and posterior margins, B3 slice 5 remainder area of interest in relation to perpendicular anterior and posterior margins, B4 remainder slice 3 perpendicular inferior margin, B5 slice 2 flanking medially with area of biopsy clip in relation to perpendicular anterior and posterior margins, B6 slice 6 flanking lateral with perpendicular anterior and posterior margins, B7 slice 1 perpendicular medial margin with possible portion of biopsy cavity, B8 slice 12 perpendicular lateral margin, B9-B10 slice 1 perpendicular medial margin, B11 slice 2 perpendicular superior and inferior margins, B12 slice 4 perpendicular inferior and posterior margins, B13 slice 5 perpendicular superior, anterior and posterior margins, B14 slice 5 perpendicular inferior, anterior posterior margins, B15 slice 6 perpendicular superior and anterior margins, B16 slice 6 perpendicular inferior, anterior, and posterior margins, B17 slice 7 perpendicular superior, anterior posterior margins, B18 slice 7 perpendicular inferior, anterior and posterior margins, B19 slice 8 perpendicular superior, anterior and posterior margins, B20 slice 8 perpendicular inferior, anterior and posterior margins, B21 slice 9 perpendicular superior, anterior and posterior margins, B22 slice 9 perpendicular inferior, anterior and posterior margins, B23 slice 10 perpendicular superior, anterior and posterior margins, B24 slice 10 perpendicular inferior, anterior and posterior margins, B25 slice 11 perpendicular superior, anterior and posterior margins, B26 slice 11 perpendicular inferior, anterior and posterior margins, B27-B28 slice 12 perpendicular lateral margin. The specimen is removed from the patient on 11/12/2023 at 9:18 AM and placed in formalin at 10:13 AM. C. Breast, Margin, Left, Excision Received in formalin designated anterior breast margin left is an oriented segments of fibrofatty tissue which measures 3.5 x 3.3 x 0.5 cm. Purple ink designates the new margin which is reinked black. The opposing surface is inked blue. The specimen is serially sectioned and totally submitted in 5 cassettes. D. Breast, Margin, Left, Excision Received in formalin designated inferior breast margin left is an oriented segments of fibrofatty tissue which measures 3.2 x 2.5 x 0.3 cm. Purple ink indicates the new margin which is reinked black. The opposing surface is inked blue. The specimen is serially sectioned and totally submitted in 4 cassettes. E. Breast, Margin, Left, Excision Received in formalin designated lateral breast margin left is an oriented segment of fibrofatty tissue which measures 3 x 2.4 x 0.5 cm. Purple ink indicates the new margin which is reinked black. The opposing surface is inked blue. The specimen is serially sectioned and totally submitted in 3 cassettes. F. Breast, Margin, Left, Excision Received in formalin designated medial breast margin left is an oriented segment of fibrofatty tissue which measures 3.9 x 3.3 x (more content not included)... Performed By: #### S #### [facility] CLIA [id number] [address] [place] [address] [place] [address] [place] SYNOPTIC REPORT Normal [facility] Comment on above: Order Comment: Speci men Type: TISSUE SPECIMEN Ordering Facility: [facility] Address: [address] [place] [address] Result Comment: INVA SIVE CARCINOMA OF THE BREAST: Resection INVASIVE CARCINOMA OF THE BREAST: EXCISION - All Specimens 8th Edition - Protocol posted: 03/13/2023 SPECIMEN Procedure: Excision (less than total mastectomy) Specimen Laterality: Left TUMOR Tumor Site: Clock position : 8 o'clock Histologic Type: Invasive carcinoma of no special type (ductal) Histologic Type Comment: based on the patient's prior biopsy case [id number] Histologic Grade (Shahrzad Histologic Score): Glandular (Acinar) / Tubular Differentiation: Score 3 Nuclear Pleomorphism: Score 3 Mitotic Rate: Score 3 Overall Grade: Grade 3 (scores of 8 or 9) Tumor Size: Greatest dimension of largest invasive focus (Millimeters): 7 mm Tumor Focality: Single focus of invasive carcinoma Ductal Carcinoma In Situ (DCIS): Not identified Lymphatic and / or Vascular Invasion: Not identified Treatment Effect in the Breast: No known presurgical therapy MARGINS Margin Status for Invasive Carcinoma: All margins negative for invasive carcinoma Distance from Invasive Carcinoma to Closest Margin: Greater than: 2 mm REGIONAL LYMPH NODES Regional Lymph Node Status: : All regional lymph nodes negative for tumor Total Number of Lymph Nodes Examined (sentinel and non-sentinel): 3 Number of [place] Nodes Examined: 3 pTNM CLASSIFICATION (AJCC 8th Edition) Reporting of pT, pN, and (when applicable) pM categories is based on information available to the pathologist at the time the report is issued. As per the AJCC (Chapter 1, 8th Ed.) it is the managing physician???s responsibility to establish the final pathologic stage based upon all pertinent information, including but potentially not limited to this pathology report. pT Category: pT1b pN Category: pN0 N Suffix: (sn) Comment(s): This synoptic report incorporates results from the patient's prior biopsy case [id number]. Breast biomarker studies were reported in the prior biopsy as follows: Estrogen receptor (negative); progesterone receptor (negative): HER2 IHC (negative, score 0). Performed By: #### S #### [facility] CLIA [id number] [address] [place] [address] STATES OF [facility] XR CHEST 1V FRONTALon 2023 XR CHEST 1V FRONTAL * * *Final Report* * * DATE OF EXAM: Nov 12 2023 9:47AM FVO [id number] - XR CHEST 1V FRONTAL / PROCEDURE REASON: VERIFY LOCATION OF CLIP * * * * Physician Interpretation * * * * EXAMINATION: XR CHEST 1V FRONTAL CLINICAL HISTORY: Verify location of clip Technique: Intraoperative fluoroscopic images Comparison: None RESULT: Please see operative note for details. Fluoroscopic Radiation Summary: Plane A, Air Kerma: 5.2 mGy Dose Area Product (DAP): Fluoro time: 0:32 min:sec IMPRESSION: Please see operative note for details Integrity Director: ALICIA Transcribe Date/Time: Nov 12 2023 3:55P Dictated by : NINA ALCALA MD This examination was interpreted and the report reviewed and electronically signed by: NINA ALCALA MD on Nov 12 2023 4:02PM EST [id number] Normal [facility] CNOVon 11-11-2023 CNOV Normal [facility] DBT Breast - left diagnostic for implanton 11-08-2023 * * *Final Report* * * DATE OF EXAM: Nov 08 2023 2:22PM [facility] 0628 - ZAC REGINA HESS LT / PROCEDURE REASON: Abnormal finding on breast imaging * * * * Physician Interpretation * * * * RESULT: #[id number] - [facility] DIAG W QUE LT #[id number] - MRI BREAST BX WO/W IVCON LT MRI BIOPSY LEFT BREAST USING VACUUM DEVICE WITH MARKING DEVICE INSERTED AND POST MAMMOGRAPHIC IMAGIN11/08/2023 HISTORY: Abnormal Finding On Breast Imaging Abnormal Finding On Breast Imaging. PATIENT CONSENT: The risks, benefits and alternatives were discussed with the patient prior to the procedure. Verbal and written consent were obtained. The procedure was explained to the patient including the benefits and alternatives. Medications were discussed. The risks, including but not limited to infection and bleeding, were reviewed by the performing physician and the patient agreed to undergo the procedure. Prior to the procedure, an Audible Time Out was done to verify patient identification, site of procedure and type of procedure. In the room at the time of the procedure were Dr. Fernando and two MR technologists. Audible Time Out Time: 1239 Procedure Start Time: 1240 Procedure Stop Time: 1247 TECHNIQUE: The patient was studied using a dedicated breast biopsy coil in the Siemens 1.5 Susannah scanner. Initial coronal T1 localizer was obtained followed by axial T1-weighted GRE imaging both before and after 16 mL of Dotarem. Subsequently, the lesion was localized on an independent workstation. Dr. Fernando performed the entire procedure without an ict sales assistant. PROCEDURE: MRI guided biopsy performed for the 4 mm enhancing focus in the approximate 7:00 left breast described on breast MRI 10/18/2023. Correlation is made to exams dated: 10/23/2023 localization, 10/23/2023 mammogram - [facility], and 10/18/2023 breast MRI - [facility]. Axial and sagittal T1 and T2 images were obtained with a breast MRI. An MRI biopsy was performed for the 4 mm mass located in the left breast at 7 o'clock middle depth. This was described on the previous MRI report. The skin was prepped in the usual manner. Local anesthetic was administered to the access site. A skin audra was made in the breast. The abnormality was approached from the medial aspect. A 9 gauge biopsy needle was placed adjacent to the abnormality under MRI guidance. Additional MRI images were obtained to document needle placement. Once the needle was documented to be in the correct location, seven specimens were obtained using the [employer] system. The patient received additional local anesthetic during the procedure. A T1 barrel hydromark clip was inserted into the biopsy cavity. A skin closure strip and a sterile dressing were applied to the access site. Post procedure mammographic imaging demonstrates the location device at the targeted area. The specimens were sent to the laboratory for pathological analysis. Initially, during the MRI biopsy, a T4 butterfly hydromark biopsy marking clip was placed. This is significantly displaced lateral along the biopsy tract (by approximately 7 cm). Therefore, a new, T1 barrel hydromark biopsy marking clip was placed while the patient was under compression and measuring/estimating the tract depth, which is in good position on the postbiopsy mammogram. DIVISION OF RADIOLOGY Provider, [facility] - 11/08/2023 * * *Final Report* * * DATE OF EXAM: Nov 08 2023 2:22PM [facility] [id number] - ZAC DIAG W QUE LT / PROCEDURE REASON: Abnormal finding on breast imaging * * * * Physician Interpretation * * * * RESULT: #[id number] - [facility] DIAG W QUE LT #[id number] - MRI BREAST BX WO/W IVCON LT MRI BIOPSY LEFT BREAST USING VACUUM DEVICE WITH MARKING DEVICE INSERTED AND POST MAMMOGRAPHIC IMAGIN11/08/2023 HISTORY: Abnormal Finding On Breast Imaging Abnormal Finding On Breast Imaging. PATIENT CONSENT: The risks, benefits and alternatives were discussed with the patient prior to the procedure. Verbal and written consent were obtained. The procedure was explained to the patient including the benefits and alternatives. Medications were discussed. The risks, including but not limited to infection and bleeding, were reviewed by the performing physician and the patient agreed to undergo the procedure. Prior to the procedure, an Audible Time Out was done to verify patient identification, site of procedure and type of procedure. In the room at the time of the procedure were Dr. Fernando and two MR technologists. Audible Time Out Time: 1239 Procedure Start Time: 1240 Procedure Stop Time: 1247 TECHNIQUE: The patient was studied using a dedicated breast biopsy coil in the Siemens 1.5 Susannah scanner. Initial coronal T1 localizer was obtained followed by axial T1-weighted GRE imaging both before and after 16 mL of Dotarem. Subsequently, the lesion was localized on an independent workstation. Dr. Fernando performed the entire procedure without an ict sales assistant. PROCEDURE: MRI guided biopsy performed for the 4 mm enhancing focus in the approximate 7:00 left breast described on breast MRI 10/18/2023. Correlation is made to exams dated: 10/23/2023 localization, 10/23/2023 mammogram - [facility], and 10/18/2023 breast MRI - [facility]. Axial and sagittal T1 and T2 images were obtained with a breast MRI. An MRI biopsy was performed for the 4 mm mass located in the left breast at 7 o'clock middle depth. This was described on the previous MRI report. The skin was prepped in the usual manner. Local anesthetic was administered to the access site. A skin audra was made in the breast. The abnormality was approached from the medial aspect. A 9 gauge biopsy needle was placed adjacent to the abnormality under MRI guidance. Additional MRI images were obtained to document needle placement. Once the needle was documented to be in the correct location, seven specimens were obtained using the [employer] system. The patient received additional local anesthetic during the procedure. A T1 barrel hydromark clip was inserted into the biopsy cavity. A skin closure strip and a sterile dressing were applied to the access site. Post procedure mammographic imaging demonstrates the location device at the targeted area. The specimens were sent to the laboratory for pathological analysis. Initially, during the MRI biopsy, a T4 butterfly hydromark biopsy marking clip was placed. This is significantly displaced lateral along the biopsy tract (by approximately 7 cm). Therefore, a new, T1 barrel hydromark biopsy marking clip was placed while the patient was under compression and measuring/estimating the tract depth, which is in good position on the postbiopsy mammogram. IMPRESSION IMPRESSION: MRI BIOPSY MRI biopsy of the 4 mm mass in the left breast at 7 o'clock middle depth with placement of a clip was successful with no apparent post procedure complications. Waiting for pathology results. A final report will be issued when these become available. Bertha Fernando M.D., lm/oanh:11/08/2023 14:39:38 Bundler(s): RT Lety, [facility]; RT Stacia(R)(M), [facility] Multiple national specialty organizations have released breast cancer screening guidelines for women at average risk for developing breast cancer - guidelines that are based on both evidence and opinion, yet differ on when to start and how often to screen for breast cancer. With representation from Breast Imaging, Internal Medicine, Women's Health, Family Medicine, and Medical/Surgical Oncology, the [facility] has carefully reviewed the data and reached the following consensus: 1) All women should engage in shared decision-making with their providers to decide when to start and how often to screen; 2) All women should have the opportunity to start screening mammography at age 40; 3) For women ages 45-55, we recommend annual screening mammograms; 4) For women ages 55 and over, we support both the transition from an annual to a biennial interval if this aligns more with patient's values and prefere (more content not included)... [facility] ZAC DIAG W QUE LTon 024 ZAC DIAG W QUE LT Normal [facility] MR Breast - left WO and W co ntrast Rohit 11-08-2023 * * *Final Report* * * DATE OF EXAM: Nov 08 2023 12:59PM AB 0695 - MRI BREAST BX WO/W IVCON LT / PROCEDURE REASON: Abnormal finding on breast imaging * * * * Physician Interpretation * * * * #[id number] - ZAC DIAG W QUE LT #[id number] - MRI BREAST BX WO/W IVCON LT MRI BIOPSY LEFT BREAST USING VACUUM DEVICE WITH MARKING DEVICE INSERTED AND POST MAMMOGRAPHIC IMAGIN11/08/2023 HISTORY: Abnormal Finding On Breast Imaging Abnormal Finding On Breast Imaging. PATIENT CONSENT: The risks, benefits and alternatives were discussed with the patient prior to the procedure. Verbal and written consent were obtained. The procedure was explained to the patient including the benefits and alternatives. Medications were discussed. The risks, including but not limited to infection and bleeding, were reviewed by the performing physician and the patient agreed to undergo the procedure. Prior to the procedure, an Audible Time Out was done to verify patient identification, site of procedure and type of procedure. In the room at the time of the procedure were Dr. Fernando and two MR technologists. Audible Time Out Time: 1239 Procedure Start Time: 1240 Procedure Stop Time: 1247 TECHNIQUE: The patient was studied using a dedicated breast biopsy coil in the Siemens 1.5 Susannah scanner. Initial coronal T1 localizer was obtained followed by axial T1-weighted GRE imaging both before and after 16 mL of Dotarem. Subsequently, the lesion was localized on an independent workstation. Dr. Fernando performed the entire procedure without an ict sales assistant. PROCEDURE: MRI guided biopsy performed for the 4 mm enhancing focus in the approximate 7:00 left breast described on breast MRI 10/18/2023. Correlation is made to exams dated: 10/23/2023 localization, 10/23/2023 mammogram - [facility], and 10/18/2023 breast MRI - [facility]. Axial and sagittal T1 and T2 images were obtained with a breast MRI. An MRI biopsy was performed for the 4 mm mass located in the left breast at 7 o'clock middle depth. This was described on the previous MRI report. The skin was prepped in the usual manner. Local anesthetic was administered to the access site. A skin audra was made in the breast. The abnormality was approached from the medial aspect. A 9 gauge biopsy needle was placed adjacent to the abnormality under MRI guidance. Additional MRI images were obtained to document needle placement. Once the needle was documented to be in the correct location, seven specimens were obtained using the [employer] system. The patient received additional local anesthetic during the procedure. A T1 barrel hydromark clip was inserted into the biopsy cavity. A skin closure strip and a sterile dressing were applied to the access site. Post procedure mammographic imaging demonstrates the location device at the targeted area. The specimens were sent to the laboratory for pathological analysis. Initially, during the MRI biopsy, a T4 butterfly hydromark biopsy marking clip was placed. This is significantly displaced lateral along the biopsy tract (by approximately 7 cm). Therefore, a new, T1 barrel hydromark biopsy marking clip was placed while the patient was under compression and measuring/estimating the tract depth, which is in good position on the postbiopsy mammogram. DIVISION OF RADIOLOGY Provider, [facility] - 11/08/2023 * * *Final Report* * * DATE OF EXAM: Nov 08 2023 12:59PM AB 0695 - MRI BREAST BX WO/W IVCON LT / PROCEDURE REASON: Abnormal finding on breast imaging * * * * Physician Interpretation * * * * #[id number] - [facility] REGINA W QUE LT #[id number] - MRI BREAST BX WO/W IVCON LT MRI BIOPSY LEFT BREAST USING VACUUM DEVICE WITH MARKING DEVICE INSERTED AND POST MAMMOGRAPHIC IMAGIN11/08/2023 HISTORY: Abnormal Finding On Breast Imaging Abnormal Finding On Breast Imaging. PATIENT CONSENT: The risks, benefits and alternatives were discussed with the patient prior to the procedure. Verbal and written consent were obtained. The procedure was explained to the patient including the benefits and alternatives. Medications were discussed. The risks, including but not limited to infection and bleeding, were reviewed by the performing physician and the patient agreed to undergo the procedure. Prior to the procedure, an Audible Time Out was done to verify patient identification, site of procedure and type of procedure. In the room at the time of the procedure were Dr. Fernando and two MR technologists. Audible Time Out Time: 1239 Procedure Start Time: 1240 Procedure Stop Time: 1247 TECHNIQUE: The patient was studied using a dedicated breast biopsy coil in the Siemens 1.5 Susannah scanner. Initial coronal T1 localizer was obtained followed by axial T1-weighted GRE imaging both before and after 16 mL of Dotarem. Subsequently, the lesion was localized on an independent workstation. Dr. Fernando performed the entire procedure without an ict sales assistant. PROCEDURE: MRI guided biopsy performed for the 4 mm enhancing focus in the approximate 7:00 left breast described on breast MRI 10/18/2023. Correlation is made to exams dated: 10/23/2023 localization, 10/23/2023 mammogram - [facility] [place], and 10/18/2023 breast MRI - [facility]. Axial and sagittal T1 and T2 images were obtained with a breast MRI. An MRI biopsy was performed for the 4 mm mass located in the left breast at 7 o'clock middle depth. This was described on the previous MRI report. The skin was prepped in the usual manner. Local anesthetic was administered to the access site. A skin audra was made in the breast. The abnormality was approached from the medial aspect. A 9 gauge biopsy needle was placed adjacent to the abnormality under MRI guidance. Additional MRI images were obtained to document needle placement. Once the needle was documented to be in the correct location, seven specimens were obtained using the [employer] system. The patient received additional local anesthetic during the procedure. A T1 barrel hydromark clip was inserted into the biopsy cavity. A skin closure strip and a sterile dressing were applied to the access site. Post procedure mammographic imaging demonstrates the location device at the targeted area. The specimens were sent to the laboratory for pathological analysis. Initially, during the MRI biopsy, a T4 butterfly hydromark biopsy marking clip was placed. This is significantly displaced lateral along the biopsy tract (by approximately 7 cm). Therefore, a new, T1 barrel hydromark biopsy marking clip was placed while the patient was under compression and measuring/estimating the tract depth, which is in good position on the postbiopsy mammogram. IMPRESSION IMPRESSION: MRI BIOPSY MRI biopsy of the 4 mm mass in the left breast at 7 o'clock middle depth with placement of a clip was successful with no apparent post procedure complications. Waiting for pathology results. A final report will be issued when these become available. Bertha Fernando M.D., lm/oanh:11/08/2023 14:39:38 Bundler(s): RT Lety, [facility]; RT Stacia(R)(M), [facility] Multiple national specialty organizations have released breast cancer screening guidelines for women at average risk for developing breast cancer - guidelines that are based on both evidence and opinion, yet differ on when to start and how often to screen for breast cancer. With representation from Breast Imaging, Internal Medicine, Women's Health, Family Medicine, and Medical/Surgical Oncology, the [facility] has carefully reviewed the data and reached the following consensus: 1) All women should engage in shared decision-making with their providers to decide when to start and how often to screen; 2) All women should have the opportunity to start screening mammography at age 40; 3) For women ages 45-55, we recommend annual screening mammograms; 4) For women ages 55 and over, we support both the transition from an annual to a biennial interval if this aligns more with patient's values and prefe (more content not included)... [facility] MRI BREAST BX WO/W IVCON LTo n 11-08-2023 MRI BREAST BX WO/W IVCON LT Normal [facility] No Panel Informationon 11-07 IMPRESSION: MRI BIOP SY MRI biopsy of the 4 mm mass in the left breast at 7 o'clock middle depth with placement of a clip was successful with no apparent post procedure complications. Waiting for pathology results. A final report will be issued when these become available. Bertha Fernando M.D., lm/oanh:11/08/2023 14:39:38 Bundler(s): Tahira Contreras RT, [facility]; RT Stacia(R)(M), [facility] Multiple national specialty organizations have released breast cancer screening guidelines for women at average risk for developing breast cancer - guidelines that are based on both evidence and opinion, yet differ on when to start and how often to screen for breast cancer. With representation from Breast Imaging, Internal Medicine, Women's Health, Family Medicine, and Medical/Surgical Oncology, the [facility] has carefully reviewed the data and reached the following consensus: 1) All women should engage in shared decision-making with their providers to decide when to start and how often to screen; 2) All women should have the opportunity to start screening mammography at age 40; 3) For women ages 45-55, we recommend annual screening mammograms; 4) For women ages 55 and over, we support both the transition from an annual to a biennial interval if this aligns more with patient's values and preferences, or continuation with annual screening; 5) All women should discuss with their providers when to stop screening mammograms. Integrity Director: Oanh Transcribe Date/Time: Nov 08 2023 12:42P Dictated by : BERTHA FERNANDO MD This examination was interpreted and the report reviewed and electronically signed by: BERTHA FERNANDO MD on Nov 08 2023 2:39PM [facility] DIVISION OF RADIOLOGY Radiology Study observation (narrative) [facility] No Panel InformationOrdered By: [facility] Provider on 11-08-2023 [facility] SURGICAL PATHOLOGYon 024 CASE REPORT Normal [facility] Comment on above: Order Comment: Speci men Type: TISSUE SPECIMENOrdering Facility: [facility] Address: [address] [place] [address] Result Comment: Surg ica Pathology Report Case: [id number] Provider: Yolette Licona MD Collected: 11/08/2023 12:47 PMOrdering Location: MRI A10 Received: 11/08/2023 03:09 PMPathologist: Yvette Woodall MDSpecimen: Breast, Left, Core Biopsy, MRI Breast Biopy Left 7:00, 4 mm enhancing focus; butterfly clip Performed By: #### S ####[facility] LABCLIA [id number] [place] [address] [place] DIAGNOSIS COMMENT Clinical and radiolo gic correlation is recommended. Normal [facility] Comment on above: Order Comment: Speci men Type: TISSUE SPECIMENOrdering Facility: [facility] Address: [address] [place] [address] Performed By: #### S ####[facility] LABCLIA [id number] [place] [address] [place] FINAL DIAGNOSIS Normal [facility] Comment on above: Order Comment: Speci men Type: TISSUE SPECIMENOrdering Facility: [facility] Address: [address] [place] [address] Result Comment: A. L eft breast, 7:00, core needle biopsy with Hydromark butterfly clip placement:-- Benign breast tissue with focal usual ductal hyperplasia, see comment. Performed By: #### S ####[facility] [id number] [address] [place] FINAL PERFORMING LAB Normal [facility] Comment on above: Order Comment: Speci men Type: TISSUE SPECIMENOrdering Facility: [facility] Address: [address] [place] [address] Result Comment: Diag nostic interpretation performed at [facility], [address] [place] [address] CLIA# [id number] Director: Fernando Boswell M.D. Performed By: #### S ####[facility]CLIA [id number] [place] [address] [place] GROSS DESCRIPTION Normal [facility] Comment on above: Order Comment: Speci men Type: TISSUE SPECIMENOrdering Facility: [facility] Address: [address] [place] [address] Result Comment: Alfred. Isamar reast, Left, Core BiopsyReceived in formalin labeled as left breast are multiple segments of cylindrical tissue aggregating to 5.8 x 2.0 x 0.3 cm, yellow and of a soft consistency. The specimen was removed from the patient at 12:47 PM on 11/08/2023. On the same day, the specimen was placed in formalin at 12:49 PM. Totally submitted in formalin in two cassettes.BC November 08, 2023 5:35 PMGross examination performed at [facility], [address] [place] [address] Performed By: #### S ####[facility] LABCLIA [id number] [facility] [address] [place] ZAC DIAGNOSTIC RTon 11-07-19 24 ZAC DIAGNOSTIC RT Normal [facility] MG Breast - right Diagnostic for implanton 11-07-2023 * * *Final Report* * * DATE OF EXAM: Nov 07 2023 12:31PM W 0626 - [facility] DIAGNOSTIC RT / PROCEDURE REASON: Clip placement * * * * Physician Interpretation * * * * RESULT: #[id number] - MRI BREAST BX WO/W IVCON RT #[id number] - [facility] DIAGNOSTIC RT MRI BIOPSY RIGHT BREAST USING VACUUM DEVICE WITH MARKING DEVICE INSERTED AND POST DIGITAL MAMMOGRAPHIC IMAGIN11/07/2023 HISTORY: Patient presenting for MRI biopsy of the RIGHT breast, recommended on recent imaging study dated 10/18/2023. Clip Placement. PATIENT CONSENT: The procedure was explained to the patient including the benefits and alternatives. Medications were discussed. The risks, including but not limited to infection and bleeding, were reviewed by the performing physician and the patient agreed to undergo the procedure. Prior to the procedure, an Audible Time Out was done to verify patient indentification, site of procedure and type of procedure. In the room at the time of the procdure were Dr. Hernandez, Dr. Logan and a technologist. Dr. Hernandez was present during all critical and patterson portions of the procedure and scrubbed in and immediately available to furnish services during the entire procedure. The ict sales assistant radiologist was Dr. Logan. The ict sales assistant radiologist performed the following procedural tasks: administration of local anesthesia, MRI guided biopsy and clip placement. Audible Time Out Time: 1231 Procedure Start Time: 1232 Procedure Stop Time: 1237 TECHNIQUE: The patient was studied using a dedicated breast biopsy coil in the Siemens 1.5 Susannah scanner. Initial coronal T1 localizer was obtained followed by axial T1-weighted GRE imaging both before and after IV of 15 cc's of Dotarem. Subsequently, the lesion was localized on an independent workstation. PROCEDURE: Correlation is made to exam dated: 10/18/2023 breast MRI - [facility]. Axial and sagittal T1 and T2 images were obtained with a breast MRI. An MRI biopsy was performed for the concerning non-mass like enhancement located in the right breast lower outer aspect middle depth. This was described on the previous MRI report. The skin was prepped in the usual manner. Local anesthetic was administered to the access site. A 9 gauge biopsy needle was placed adjacent to the abnormality under MRI guidance. Additional MRI images were obtained to document needle placement. Once the needle was documented to be in the correct location, seven specimens were obtained using the [employer] system. The patient received additional local anesthetic during the procedure. A hourglass clip was inserted into the biopsy cavity. A skin closure strip was applied to the access site. Post procedure digital mammographic imaging demonstrates the location device 5.5cm medial from the geometric center of the targeted area. The specimens were sent to the laboratory for pathological analysis. DIVISION OF RADIOLOGY Provider, [facility] - 11/07/2023 * * *Final Report* * * DATE OF EXAM: Nov 07 2023 12:31PM W 0626 - [facility] DIAGNOSTIC RT / PROCEDURE REASON: Clip placement * * * * Physician Interpretation * * * * RESULT: #[id number] - MRI BREAST BX WO/W IVCON RT #[id number] - [facility] DIAGNOSTIC RT MRI BIOPSY RIGHT BREAST USING VACUUM DEVICE WITH MARKING DEVICE INSERTED AND POST DIGITAL MAMMOGRAPHIC IMAGIN11/07/2023 HISTORY: Patient presenting for MRI biopsy of the RIGHT breast, recommended on recent imaging study dated 10/18/2023. Clip Placement. PATIENT CONSENT: The procedure was explained to the patient including the benefits and alternatives. Medications were discussed. The risks, including but not limited to infection and bleeding, were reviewed by the performing physician and the patient agreed to undergo the procedure. Prior to the procedure, an Audible Time Out was done to verify patient indentification, site of procedure and type of procedure. In the room at the time of the procdure were Dr. Hernandez, Dr. Logan and a technologist. Dr. Hernandez was present during all critical and patterson portions of the procedure and scrubbed in and immediately available to furnish services during the entire procedure. The ict sales assistant radiologist was Dr. Logan. The ict sales assistant radiologist performed the following procedural tasks: administration of local anesthesia, MRI guided biopsy and clip placement. Audible Time Out Time: 1231 Procedure Start Time: 1232 Procedure Stop Time: 1237 TECHNIQUE: The patient was studied using a dedicated breast biopsy coil in the Siemens 1.5 Susannah scanner. Initial coronal T1 localizer was obtained followed by axial T1-weighted GRE imaging both before and after IV of 15 cc's of Dotarem. Subsequently, the lesion was localized on an independent workstation. PROCEDURE: Correlation is made to exam dated: 10/18/2023 breast MRI - [facility]. Axial and sagittal T1 and T2 images were obtained with a breast MRI. An MRI biopsy was performed for the concerning non-mass like enhancement located in the right breast lower outer aspect middle depth. This was described on the previous MRI report. The skin was prepped in the usual manner. Local anesthetic was administered to the access site. A 9 gauge biopsy needle was placed adjacent to the abnormality under MRI guidance. Additional MRI images were obtained to document needle placement. Once the needle was documented to be in the correct location, seven specimens were obtained using the [employer] system. The patient received additional local anesthetic during the procedure. A hourglass clip was inserted into the biopsy cavity. A skin closure strip was applied to the access site. Post procedure digital mammographic imaging demonstrates the location device 5.5cm medial from the geometric center of the targeted area. The specimens were sent to the laboratory for pathological analysis. IMPRESSION IMPRESSION: MRI BIOPSY MRI biopsy of the non-mass like enhancement in the right breast lower outer aspect middle depth with placement of a clip was successful with no apparent post procedure complications. Waiting for pathology results. A final report will be issued when these become available. The procedure was reviewed by a staff physician. SUMMARY: RIGHT breast MRI guided biopsy, linear nonmass enhancement, HOURGLASS clip. Crissy tubbs,connor/oanh:11/07/2023 15:03:17 Bundler(s): Mounika Smith, RT(R)(M), [facility]; Shana Gomez, [facility] Multiple national specialty organizations have released breast cancer screening guidelines for women at average risk for developing breast cancer - guidelines that are based on both evidence and opinion, yet differ on when to start and how often to screen for breast cancer. With representation from Breast Imaging, Internal Medicine, Women's Health, Family Medicine, and Medical/Surgical Oncology, the [facility] has carefully reviewed the data and reached the following consensus: 1) All women should engage in shared decision-making with their providers to decide when to start and how often to screen; 2) All women should have the opportunity to start screening mammography at age 40; 3) For women ages 45-55, we recommend annual screening mammograms; 4) For women ages 55 and over, we support both the transition from an annual to a biennial interval if this aligns more with patient's values and preferences, or continuation with annual screening; 5) All women should discuss with their providers when to stop screening mammograms. Integrity Director: Oanh Transcribe Date/Time: Nov 07 2023 12:31P Dictated by : GEETHA LOGAN, DO This examination was interpreted and (more content not included)... [facility] MR Breast - right WO and W c ontrast Rohit 11-07-2023 * * *Final Report* * * DATE OF EXAM: Nov 07 2023 12:45PM AB 0696 - MRI BREAST BX WO/W IVCON RT / PROCEDURE REASON: Abnormal finding on breast imaging * * * * Physician Interpretation * * * * #[id number] - MRI BREAST BX WO/W IVCON RT #[id number] - [facility]NOST[facility] RT MRI BIOPSY RIGHT BREAST USING VACUUM DEVICE WITH MARKING DEVICE INSERTED AND POST DIGITAL MAMMOGRAPHIC IMAGIN11/07/2023 HISTORY: Patient presenting for MRI biopsy of the RIGHT breast, recommended on recent imaging study dated 10/18/2023. Clip Placement. PATIENT CONSENT: The procedure was explained to the patient including the benefits and alternatives. Medications were discussed. The risks, including but not limited to infection and bleeding, were reviewed by the performing physician and the patient agreed to undergo the procedure. Prior to the procedure, an Audible Time Out was done to verify patient indentification, site of procedure and type of procedure. In the room at the time of the procdure were Dr. Hernandez, Dr. Logan and a technologist. Dr. Hernandez was present during all critical and patterson portions of the procedure and scrubbed in and immediately available to furnish services during the entire procedure. The ict sales assistant radiologist was Dr. Logan. The ict sales assistant radiologist performed the following procedural tasks: administration of local anesthesia, MRI guided biopsy and clip placement. Audible Time Out Time: 1231 Procedure Start Time: 123 Procedure Stop Time: 1237 TECHNIQUE: The patient was studied using a dedicated breast biopsy coil in the Siemens 1.5 Susannah scanner. Initial coronal T1 localizer was obtained followed by axial T1-weighted GRE imaging both before and after IV of 15 cc's of Dotarem. Subsequently, the lesion was localized on an independent workstation. PROCEDURE: Correlation is made to exam dated: 10/18/2023 breast MRI - [facility]. Axial and sagittal T1 and T2 images were obtained with a breast MRI. An MRI biopsy was performed for the concerning non-mass like enhancement located in the right breast lower outer aspect middle depth. This was described on the previous MRI report. The skin was prepped in the usual manner. Local anesthetic was administered to the access site. A 9 gauge biopsy needle was placed adjacent to the abnormality under MRI guidance. Additional MRI images were obtained to document needle placement. Once the needle was documented to be in the correct location, seven specimens were obtained using the [employer] system. The patient received additional local anesthetic during the procedure. A hourglass clip was inserted into the biopsy cavity. A skin closure strip was applied to the access site. Post procedure digital mammographic imaging demonstrates the location device 5.5cm medial from the geometric center of the targeted area. The specimens were sent to the laboratory for pathological analysis. DIVISION OF RADIOLOGY Provider, [facility] Dillan [facility] - 11/07/2023 * * *Final Report* * * DATE OF EXAM: Nov 07 2023 12:45PM AB 0696 - MRI BREAST BX WO/W IVCON RT / PROCEDURE REASON: Abnormal finding on breast imaging * * * * Physician Interpretation * * * * #[id number] - MRI BREAST BX WO/W IVCON RT #[id number] - [facility] DIAGNOSTIC RT MRI BIOPSY RIGHT BREAST USING VACUUM DEVICE WITH MARKING DEVICE INSERTED AND POST DIGITAL MAMMOGRAPHIC IMAGIN11/07/2023 HISTORY: Patient presenting for MRI biopsy of the RIGHT breast, recommended on recent imaging study dated 10/18/2023. Clip Placement. PATIENT CONSENT: The procedure was explained to the patient including the benefits and alternatives. Medications were discussed. The risks, including but not limited to infection and bleeding, were reviewed by the performing physician and the patient agreed to undergo the procedure. Prior to the procedure, an Audible Time Out was done to verify patient indentification, site of procedure and type of procedure. In the room at the time of the procdure were Dr. Hernandez, Dr. Logan and a technologist. Dr. Hernandez was present during all critical and patterson portions of the procedure and scrubbed in and immediately available to furnish services during the entire procedure. The ict sales assistant radiologist was Dr. Logan. The ict sales assistant radiologist performed the following procedural tasks: administration of local anesthesia, MRI guided biopsy and clip placement. Audible Time Out Time: 1231 Procedure Start Time: 1232 Procedure Stop Time: 1237 TECHNIQUE: The patient was studied using a dedicated breast biopsy coil in the Siemens 1.5 Susannah scanner. Initial coronal T1 localizer was obtained followed by axial T1-weighted GRE imaging both before and after IV of 15 cc's of Dotarem. Subsequently, the lesion was localized on an independent workstation. PROCEDURE: Correlation is made to exam dated: 10/18/2023 breast MRI - [facility]. Axial and sagittal T1 and T2 images were obtained with a breast MRI. An MRI biopsy was performed for the concerning non-mass like enhancement located in the right breast lower outer aspect middle depth. This was described on the previous MRI report. The skin was prepped in the usual manner. Local anesthetic was administered to the access site. A 9 gauge biopsy needle was placed adjacent to the abnormality under MRI guidance. Additional MRI images were obtained to document needle placement. Once the needle was documented to be in the correct location, seven specimens were obtained using the [employer] system. The patient received additional local anesthetic during the procedure. A hourglass clip was inserted into the biopsy cavity. A skin closure strip was applied to the access site. Post procedure digital mammographic imaging demonstrates the location device 5.5cm medial from the geometric center of the targeted area. The specimens were sent to the laboratory for pathological analysis. IMPRESSION IMPRESSION: MRI BIOPSY MRI biopsy of the non-mass like enhancement in the right breast lower outer aspect middle depth with placement of a clip was successful with no apparent post procedure complications. Waiting for pathology results. A final report will be issued when these become available. The procedure was reviewed by a staff physician. SUMMARY: RIGHT breast MRI guided biopsy, linear nonmass enhancement, HOURGLASS clip. connor Meeks M.D., D.O./oanh:11/07/2023 15:03:17 Bundler(s): RT Stacia(R)(M), [facility]; Shana Gomez, [facility] Multiple national specialty organizations have released breast cancer screening guidelines for women at average risk for developing breast cancer - guidelines that are based on both evidence and opinion, yet differ on when to start and how often to screen for breast cancer. With representation from Breast Imaging, Internal Medicine, Women's Health, Family Medicine, and Medical/Surgical Oncology, the [facility] has carefully reviewed the data and reached the following consensus: 1) All women should engage in shared decision-making with their providers to decide when to start and how often to screen; 2) All women should have the opportunity to start screening mammography at age 40; 3) For women ages 45-55, we recommend annual screening mammograms; 4) For women ages 55 and over, we support both the transition from an annual to a biennial interval if this aligns more with patient's values and preferences, or continuation with annual screening; 5) All women should discuss with their providers when to stop screening mammograms. Integrity Director: Oanh Transcribe Date/Time: Nov 07 2023 12:31P Dictated by : GEETHA LOGAN, DO This examinati (more content not included)... [facility] MRI BREAST BX WO/W IVCON RTo n 11-07-2023 MRI BREAST BX WO/W IVCON RT Normal [facility] No Panel Informationon 11-06 IMPRESSION: MRI BIOP SY MRI biopsy of the non-mass like enhancement in the right breast lower outer aspect middle depth with placement of a clip was successful with no apparent post procedure complications. Waiting for pathology results. A final report will be issued when these become available. The procedure was reviewed by a staff physician. SUMMARY: RIGHT breast MRI guided biopsy, linear nonmass enhancement, HOURGLASS clip. connor Meeks M.D., D.O./oanh:11/07/2023 15:03:17 Bundler(s): Mounika Smith RT(R)(M), [facility]; Shana Gomez, [facility] Multiple national specialty organizations have released breast cancer screening guidelines for women at average risk for developing breast cancer - guidelines that are based on both evidence and opinion, yet differ on when to start and how often to screen for breast cancer. With representation from Breast Imaging, Internal Medicine, Women's Health, Family Medicine, and Medical/Surgical Oncology, the [facility] has carefully reviewed the data and reached the following consensus: 1) All women should engage in shared decision-making with their providers to decide when to start and how often to screen; 2) All women should have the opportunity to start screening mammography at age 40; 3) For women ages 45-55, we recommend annual screening mammograms; 4) For women ages 55 and over, we support both the transition from an annual to a biennial interval if this aligns more with patient's values and preferences, or continuation with annual screening; 5) All women should discuss with their providers when to stop screening mammograms. Integrity Director: Oanh Transcribe Date/Time: Nov 07 2023 12:31P Dictated by : GEETHA LOGAN, DO This examination was interpreted and the report reviewed and electronically signed by: CRISSY HERNANDEZ MD on Nov 07 2023 3:03PM [facility] DIVISION OF RADIOLOGY Radiology Study observation (narrative) [facility] No Panel InformationOrdered By: Ccf Provider on 11-07-2023 [facility] SURGICAL PATHOLOGYon 024 CASE REPORT Normal [facility] Comment on above: Order Comment: Speci men Type: TISSUE SPECIMENOrdering Facility: [facility] Address: [address] [place] [address] Result Comment: Surg [facility] Pathology Report Case: [id number] Provider: Yolette Licona MD Collected: 11/07/2023 12:37 PMOrdering Location: MRI A10 Received: 11/07/2023 03:30 PMPathologist: Yvette Woodall MDSpecimen: Breast, Right, Core Biopsy, RIGHT MRI Breast Biopsy. Hourglass clip. Performed By: #### S ####[facility] LABCLIA [id number] [place] [address] [place] FINAL DIAGNOSIS Normal [facility] Comment on above: Order Comment: Speci men Type: TISSUE SPECIMENOrdering Facility: [facility] Address: [address] [place] [address] Result Comment: A. R ight breast, MRI guided core needle biopsy with hourglass clip placement::-- Apocrine metaplasia and cysts. Performed By: #### S ####[facility] LABCLIA [id number] [address] [place] FINAL PERFORMING LAB Normal [facility] Comment on above: Order Comment: Speci men Type: TISSUE SPECIMENOrdering Facility: [facility] Address: [address] [place] [address] Result Comment: Diag nostic interpretation performed at [facility], [address] [place] [address] CLIA# [id number] Director: Fernando Boswell M.D. Performed By: #### S ####[facility] LABCLIA [id number] [address] [place] GROSS DESCRIPTION Normal [facility] Comment on above: Order Comment: Speci men Type: TISSUE SPECIMENOrdering Facility: [facility] Address: [address] [place] [address] Result Comment: Monserrat [facility] reast, Right, Core BiopsyReceived in formalin labeled as ``right breast? are multiple segments of cylindrical tissue aggregating to 5.0 x 2.0 x 0.3 cm, yellow and of a soft consistency. The specimen was removed from the patient at 12: 37 on 11/07/2023. On the same day, the specimen was placed in formalin at 12: 38. Totally submitted in formalin in 2 cassettes.VY November 07, 2023 5:58 PMGross examination performed at [facility], [facility], [place] [address] Performed By: #### S ####[facility] LABCLIA [id number] [facility] [id number] [place] CNCNPATEDon 11-04-2023 CNCNPATED Normal [facility] CNPTOUTREACHon 10-30-2023 CNPTOUTREACH Normal [facility] CNOVon 10-24-2023 CNOV Normal [facility] CNOVSPon 10-24-2023 CNOVSP Normal [facility] CBC W Auto Differential pane l (Bld)on 10-23-2023 Basophils (Bld) [#/Vol] [facility] Basophils/100 WBC (Bld) 0.3 % [facility] Differential cell count method Nom (Bld) Auto [facility] Eosinophils (Bld) [#/Vol] 0.10 10*3/uL [facility] Eosinophils/100 WBC (Bld) 1.6 % [facility] Erythrocyte distribution width (RBC) [Ratio] 12.9 % 11.5 - 15.0 % [facility] Hematocrit (Bld) [Volume fraction] 45.4 % 36.0 - 46.0 % [facility] Hemoglobin (Bld) [Mass/Vol] 15.1 g/dL 11.5 - 15.5 g/dL [facility] Immature granulocytes (Bld) [#/Vol] [facility] Immature granulocytes/100 WBC (Bld) 0.2 % [facility] Lymphocytes (Bld) [#/Vol] 2.52 10*3/uL [facility] Lymphocytes/100 WBC (Bld) 41.2 % [facility] MCH (RBC) [Entitic mass] 31.1 pg 26.0 - 34.0 pg [facility] MCHC (RBC) [Mass/Vol] 33.3 g/dL 30.5 - 36.0 g/dL [facility] MCV (RBC) [Entitic vol] 93.4 fL 80.0 - 100.0 fL [facility] Monocytes (Bld) [#/Vol] 0.54 10*3/uL [facility] Monocytes/100 WBC (Bld) 8.8 % [facility] Neutrophils (Bld) [#/Vol] 2.92 10*3/uL [facility] Neutrophils/100 WBC (Bld) 47.9 % [facility] Nucleated RBC (Bld) [#/Vol] NINF [facility] Nucleated RBC/100 WBC (Bld) [Ratio] 0.0 % /100 WBC [facility] Platelet mean volume (Bld) [Entitic vol] 10.4 fL 9.0 - 12.7 fL [facility] Platelets (Bld) [#/Vol] 219 10*3/uL [facility] RBC (Bld) [#/Vol] 4.86 10*6/uL 3.90 - 5.2 0 m/uL [facility] WBC (Bld) [#/Vol] 6.11 10*3/uL [facility] Basophils (Bld) [#/Vol] 10*3/uL Normal <0.11 [facility] Comment on above: Order Comment: Speci men Type: BLOOD SPECIMENOrdering Facility: [facility] Address: [address] [place] [address] Performed By: #### 5 7021-8 ####[facility] LABCLIA [id number] [place] [address] [place] Basophils/100 WBC (Bld) 0.3 % Normal [facility] Comment on above: Order Comment: Speci men Type: BLOOD SPECIMENOrdering Facility: [facility] Address: [address] [place] [address] Performed By: #### 5 7021-8 ####[facility] LABIA [id number] [place] [address] [place] Differential cell count method Nom (Bld) Auto Normal [facility] Comment on above: Order Comment: Speci men Type: BLOOD SPECIMENOrdering Facility: [facility] Address: [address] [place] [address] Performed By: #### 5 7021-8 ####[facility] LABCLIA [id number] [place] [address] [place] Eosinophils (Bld) [#/Vol] 0.10 10*3/uL Normal <0.46 [facility] Comment on above: Order Comment: Speci men Type: BLOOD SPECIMENOrdering Facility: [facility] Address: [address] [place] [address] Performed By: #### 5 7021-8 ####[facility] LABCLIA [id number] [place] [address] [place] Eosinophils/100 WBC (Bld) 1.6 % Normal [facility] Comment on above: Order Comment: Speci men Type: BLOOD SPECIMENOrdering Facility: [facility] Address: [address] [place] [address] Performed By: #### 5 7021-8 ####[facility] LABCLIA [id number] [place] [address] [place] Erythrocyte distribution width (RBC) [Ratio] 12.9 % Normal 11.5-15.0 [facility] Comment on above: Order Comment: Speci men Type: BLOOD SPECIMENOrdering Facility: [facility] Address: [address] [place] [address] Performed By: #### 5 7021-8 ####[facility] LABCLIA [id number] [place] [address] [place] Hematocrit (Bld) [Volume fraction] 45.4 % Normal 36.0-46.0 [facility] Comment on above: Order Comment: Speci men Type: BLOOD SPECIMENOrdering Facility: [facility] Address: [address] [place] [address] Performed By: #### 5 7021-8 ####[facility] LABCLIA [id number] [place] [address] [place] Hemoglobin (Bld) [Mass/Vol] 15.1 g/dL Normal 11.5-15.5 [facility] Comment on above: Order Comment: Speci men Type: BLOOD SPECIMENOrdering Facility: [facility] Address: [address] [place] [address] Performed By: #### 5 7021-8 ####[facility] LABCLIA [id number] [place] [address] [place] Immature granulocytes (Bld) [#/Vol] 10*3/uL Normal <0.10 [facility] Comment on above: Order Comment: Speci men Type: BLOOD SPECIMENOrdering Facility: [facility] Address: [address] [place] [address] Performed By: #### 5 7021-8 ####[facility] LABIA [id number] [place] [address] [place] Immature granulocytes/100 WBC (Bld) 0.2 % Normal [facility] Comment on above: Order Comment: Speci men Type: BLOOD SPECIMENOrdering Facility: [facility] Address: [address] [place] [address] Performed By: #### 5 7021-8 ####[facility] LABCLIA [id number] [place] [address] [place] Lymphocytes (Bld) [#/Vol] 2.52 10*3/uL Normal 1.00-4.00 [facility] Comment on above: Order Comment: Speci men Type: BLOOD SPECIMENOrdering Facility: [facility] Address: [address] [place] [address] Performed By: #### 5 7021-8 ####[facility] LABCLIA [id number] [place] [address] [place] Lymphocytes/100 WBC (Bld) 41.2 % Normal [facility] Comment on above: Order Comment: Speci men Type: BLOOD SPECIMENOrdering Facility: [facility] Address: [address] [place] [address] Performed By: #### 5 7021-8 ####[facility] LABCLIA [id number] [place] [address] [place] MCH (RBC) [Entitic mass] 31.1 pg Normal 26.0-34.0 [facility] Comment on above: Order Comment: Speci men Type: BLOOD SPECIMENOrdering Facility: [facility] Address: [address] [place] [address] Performed By: #### 5 7021-8 ####[facility] LABCLIA [id number] [place] [address] [place] MCHC (RBC) [Mass/Vol] 33.3 g/dL Normal 30.5-36.0 [facility] Comment on above: Order Comment: Speci men Type: BLOOD SPECIMENOrdering Facility: [facility] Address: [address] [place] [address] Performed By: #### 5 7021-8 ####[facility] LABIA [id number] [place] [address] [place] MCV (RBC) [Entitic vol] 93.4 fL Normal 80.0-100.0 [facility] Comment on above: Order Comment: Speci men Type: BLOOD SPECIMENOrdering Facility: [facility] Address: [address] [place] [address] Performed By: #### 5 7021-8 ####[facility] LABCLIA [id number] [place] [address] [place] Monocytes (Bld) [#/Vol] 0.54 10*3/uL Normal <0.87 [facility] Comment on above: Order Comment: Speci men Type: BLOOD SPECIMENOrdering Facility: [facility] Address: [address] [place] [address] Performed By: #### 5 7021-8 ####[facility] LABCLIA [id number] [place] [address] [place] Monocytes/100 WBC (Bld) 8.8 % Normal [facility] Comment on above: Order Comment: Speci men Type: BLOOD SPECIMENOrdering Facility: [facility] Address: [address] [place] [address] Performed By: #### 5 7021-8 ####[facility] LABCLIA [id number] [place] [address] [place] Neutrophils (Bld) [#/Vol] 2.92 10*3/uL Normal 1.45-7.50 [facility] Comment on above: Order Comment: Speci men Type: BLOOD SPECIMENOrdering Facility: [facility] Address: [address] [place] [address] Performed By: #### 5 7021-8 ####[facility] LABCLIA [id number] [place] [address] [place] Neutrophils/100 WBC (Bld) 47.9 % Normal [facility] Comment on above: Order Comment: Speci men Type: BLOOD SPECIMENOrdering Facility: [facility] Address: [address] [place] [address] Performed By: #### 5 7021-8 ####[facility] LABCLIA [id number] [place] [address] [place] Nucleated RBC (Bld) [#/Vol] 10*3/uL Normal <0.01 [facility] Comment on above: Order Comment: Speci men Type: BLOOD SPECIMENOrdering Facility: [facility] Address: [address] [place] [address] Performed By: #### 5 7021-8 ####[facility] LABCLIA [id number] [place] [address] [place] Nucleated RBC/100 WBC (Bld) [Ratio] 0.0 /100 WBC Normal [facility] Comment on above: Order Comment: Speci men Type: BLOOD SPECIMENOrdering Facility: [facility] Address: [address] [place] [address] Performed By: #### 5 7021-8 ####[facility] LABCLIA [id number] [place] [address] [place] Platelet mean volume (Bld) [Entitic vol] 10.4 fL Normal 9.0-12.7 [facility] Comment on above: Order Comment: Speci men Type: BLOOD SPECIMENOrdering Facility: [facility] Address: [address] [place] [address] Performed By: #### 5 7021-8 ####[facility] LABCLIA [id number] [place] [address] [place] Platelets (Bld) [#/Vol] 219 10*3/uL Normal 150-400 [facility] Comment on above: Order Comment: Speci men Type: BLOOD SPECIMENOrdering Facility: [facility] Address: [address] [place] [address] Performed By: #### 5 7021-8 ####[facility] LABIA [id number] [place] [address] [place] RBC (Bld) [#/Vol] 4.86 10*6/uL Normal 3.90-5.20 [facility] Comment on above: Order Comment: Speci men Type: BLOOD SPECIMENOrdering Facility: [facility] Address: [address] [place] [address] Performed By: #### 5 7021-8 ####[facility] LABCLIA [id number] [place] [address] [place] WBC (Bld) [#/Vol] 6.11 10*3/uL Normal 3.70-11.00 [facility] Comment on above: Order Comment: Speci men Type: BLOOD SPECIMENOrdering Facility: [facility] Address: [address] [place] [address] Performed By: #### 5 7021-8 ####[facility] LABCLIA [id number] [address] [address] [place] Comprehensive metabolic 2000 panelon 10-23-2023 Albumin [Mass/Vol] 4.3 g/dL Normal 3.9-4.9 [facility] Comment on above: Order Comment: Speci men Type: BLOOD SPECIMENOrdering Facility: [facility] Address: [address] [place] [address] Performed By: #### 2 4323-8 ####[facility] LABCLIA [id number] [place] [address] [place] ALP [Catalytic activity/Vol] 91 U/L Normal 34-123 [facility] Comment on above: Order Comment: Speci men Type: BLOOD SPECIMENOrdering Facility: [facility] Address: [address] [place] [address] Performed By: #### 2 4323-8 ####[facility] LABCLIA [id number] [place] [id number] [place] ALT [Catalytic activity/Vol] 21 U/L Normal 7-38 [facility] Comment on above: Order Comment: Speci men Type: BLOOD SPECIMENOrdering Facility: [facility] Address: [address] [place] [address] Performed By: #### 2 4323-8 ####[facility] LABCLIA [id number] [place] [id number] [place] Anion gap [Moles/Vol] 9 mmol/L Normal 8-15 [facility] Comment on above: Order Comment: Speci men Type: BLOOD SPECIMENOrdering Facility: [facility] Address: [address] [place] [address] Performed By: #### 2 4323-8 ####[facility] LABCLIA [id number] [place] [address] [place] AST [Catalytic activity/Vol] 25 U/L Normal 13-35 [facility] Comment on above: Order Comment: Speci men Type: BLOOD SPECIMENOrdering Facility: [facility] Address: [address] [place] [address] Performed By: #### 2 4323-8 ####[facility] LABCLIA [id number] [place] [address] [place] Bilirubin [Mass/Vol] 0.4 mg/dL Normal 0.2-1.3 [facility] Comment on above: Order Comment: Speci men Type: BLOOD SPECIMENOrdering Facility: [facility] Address: [address] [place] [address] Performed By: #### 2 4323-8 ####[facility] LABCLIA [id number] [place] [address] [place] Calcium [Mass/Vol] 9.8 mg/dL Normal 8.5-10.2 [facility] Comment on above: Order Comment: Speci men Type: BLOOD SPECIMENOrdering Facility: [facility] Address: [address] [place] [address] Performed By: #### 2 4323-8 ####[facility] LABCLIA [id number] [place] [address] [place] Chloride [Moles/Vol] 104 mmol/L Normal 98-107 [facility] Comment on above: Order Comment: Speci men Type: BLOOD SPECIMENOrdering Facility: [facility] Address: [address] [place] [address] Performed By: #### 2 4323-8 ####[facility] LABCLIA [id number] [place] [address] [place] CO2 [Moles/Vol] 28 mmol/L Normal 22-30 [facility] Comment on above: Order Comment: Speci men Type: BLOOD SPECIMENOrdering Facility: [facility] Address: [address] [place] [address] Performed By: #### 2 4323-8 ####[facility] LABCLIA [id number] [place] [address] [place] Creatinine [Mass/Vol] 1.02 mg/dL High 0.58-0.96 [facility] Comment on above: Order Comment: Speci men Type: BLOOD SPECIMENOrdering Facility: [facility] Address: [address] [place] [address] Performed By: #### 2 4323-8 ####[facility] LABCLIA [id number] [place] [address] [place] Creatinine and Glomerular filtration rate.predicted panel (S/P/Bld) 59 mL/min/1.73m??? Low >=60 [facility] Comment on above: Order Comment: Speci men Type: BLOOD SPECIMENOrdering Facility: [facility] Address: [address] [place] [address] Result Comment: Brandie mated Glomerular Filtration Rate (eGFR) is calculated using the 2020 CKD-EPI creatinine equation. This equation utilizes serum creatinine, sex, and age as parameters. The creatinine assay has traceable calibration to isotope dilution-mass spectrometry. Refer to KDIGO guidelines for clinical interpretation. In patients with unstable renal function, e.g. those with acute kidney injury, the eGFR may not accurately reflect actual GFR. Performed By: #### 2 4323-8 ####[facility] LABCLIA [id number] [place] [address] [place] Glucose [Mass/Vol] 87 mg/dL Normal 74-99 [facility] Comment on above: Order Comment: Speci men Type: BLOOD SPECIMENOrdering Facility: [facility] Address: [address] [place] [address] Result Comment: The [place] [employer] (ADA) provides guidance for cutoff values for fasting glucose and random glucose. The ADA defines fasting as no caloric intake for at least 8 hours. Fasting plasma glucose results between 100 to 125 mg/dL indicate increased risk for diabetes (prediabetes).Fasting plasma glucose results greater than or equal to 126 mg/dL meet the criteria for diagnosis of diabetes. In the absence of unequivocal hyperglycemia, results should be confirmed by repeat testing. In a patient with classic symptoms of hyperglycemia or hyperglycemic crisis, random plasma glucose results greater than or equal to 200 mg/dL meet the criteria for diagnosis of diabetes.Reference: Standards of Medical Care in Diabetes 2016, [place] [employer]. Diabetes Care. 2016.39(Suppl 1). Performed By: #### 2 4323-8 ####[facility] LABCLIA [id number] [place] [address] [place] Potassium [Moles/Vol] 4.3 mmol/L Normal 3.7-5.1 [facility] Comment on above: Order Comment: Speci men Type: BLOOD SPECIMENOrdering Facility: [facility] Address: [address] [place] [address] Performed By: #### 2 4323-8 ####[facility] LABIA [id number] [place] [address] [place] Protein [Mass/Vol] 6.5 g/dL Normal 6.3-8.0 [facility] Comment on above: Order Comment: Speci men Type: BLOOD SPECIMENOrdering Facility: [facility] Address: [address] [place] [address] Performed By: #### 2 4323-8 ####[facility] LABCLIA [id number] [place] [address] [place] Sodium [Moles/Vol] 141 mmol/L Normal 136-144 [facility] Comment on above: Order Comment: Speci men Type: BLOOD SPECIMENOrdering Facility: [facility] Address: [address] [place] [address] Performed By: #### 2 4323-8 ####[facility] LABCLIA [id number] [place] [id number] [place] Urea nitrogen [Mass/Vol] 16 mg/dL Normal 7-21 [facility] Comment on above: Order Comment: Speci men Type: BLOOD SPECIMENOrdering Facility: [facility] Address: [address] [place] [id number] Performed By: #### 2 4323-8 ####[facility] LABCLIA [id number] [place] [address] [place] ECG COMPLETEon 10-23-2023 ECG COMPLETE Normal [facility] HISTORY PHYSICALon HISTORY PHYSICAL Normal [facility] ZAC DIAGNOSTIC LTon 10-23-19 24 [facility] US LOC BREAST LTon 10-22 ZAC US LOC BREAST LT Normal [facility] MG Breast - left Diagnostic for implanton 10-23-2023 * * *Final Report* * * DATE OF EXAM: Oct 23 2023 10:43AM BA 0621 - [facility] DIAGNOSTIC LT / PROCEDURE REASON: multiple diagnoses * * * * Physician Interpretation * * * * RESULT: #[id number] - ZAC DIAGNOSTIC LT #[id number] - [facility] US LOC BREAST LT ULTRASOUND GUIDED INFRARED ACTIVATED ELECTROMAGNETIC REFLECTOR DEVICE PLACEMENT LEFT BREAST WITH POST DIGITAL MAMMOGRAPHIC AND ULTRASOUND IMAGIN10/23/2023 HISTORY: The patient presents for LEFT ultrasound guided needle 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 Pre and post localization hard copy sonographic images were obtained. post clip films. PATIENT CONSENT: A time out was performed immediately prior to procedure start with the radiology team, correctly identifying the patient name, date of , procedure, anatomy (including marking of site and side), patient position, relevant diagnostic and radiology test results, safety precautions, and procedure-specific equipment needs. The procedure was explained to the patient including the risks, benefits and alternatives. Medications and allergies were also reviewed. The risks, including but not limited to infection and bleeding, were reviewed by the performing physician and the patient agreed to undergo the procedure. The radiologist and technologist were present throughout the entire procedure. Dr. Shankar performed the entire procedure without an ict sales assistant. Audible Time Out Time: 1001 Procedure Start Time: 1015 Procedure Stop Time: 1018 LEFT ultrasound guided needle localization of a biopsy proven carcinoma marked with a CORK clip in the lower inner quadrant posterior depth, seen at 8:00 6cmFN. Correlation is made to exams dated: 10/18/2023 breast MRI - [facility], 09/25/2023 mammogram - [facility], 10/23/2023 [facility] - [facility], 09/25/2023 ultrasound, and 09/25/2023 mammogram. An infrared activated electromagnetic reflector device placement using ultrasound guidance was performed for the concerning area of asymmetry located in the left breast at 8 o'clock posterior depth. This was described on the previous ultrasound and biopsy reports. The skin was prepped in the usual manner. Local anesthetic was administered to the access site. A skin audra was made in the breast. The localization was approached from the caudocranial aspect. A location device was inserted into the targeted area through an introducer device under ultrasound guidance. The patient received additional local anesthetic during the procedure. A sterile dressing was applied to the access site. Post placement digital mammographic and ultrasound imaging demonstrates location device traverses the targeted area. DIVISION OF RADIOLOGY Provider, [facility] - 10/23/2023 * * *Final Report* * * DATE OF EXAM: Oct 23 2023 10:43AM [facility] 0621 [facility] DIAGNOSTIC LT / PROCEDURE REASON: multiple diagnoses * * * * Physician Interpretation * * * * RESULT: #[id number] - [facility] DIAGNOSTIC LT #[id number] - [facility] US LOC BREAST LT ULTRASOUND GUIDED INFRARED ACTIVATED ELECTROMAGNETIC REFLECTOR DEVICE PLACEMENT LEFT BREAST WITH POST DIGITAL MAMMOGRAPHIC AND ULTRASOUND IMAGIN10/23/2023 HISTORY: The patient presents for LEFT ultrasound guided needle 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 Pre and post localization hard copy sonographic images were obtained. post clip films. PATIENT CONSENT: A time out was performed immediately prior to procedure start with the radiology team, correctly identifying the patient name, date of , procedure, anatomy (including marking of site and side), patient position, relevant diagnostic and radiology test results, safety precautions, and procedure-specific equipment needs. The procedure was explained to the patient including the risks, benefits and alternatives. Medications and allergies were also reviewed. The risks, including but not limited to infection and bleeding, were reviewed by the performing physician and the patient agreed to undergo the procedure. The radiologist and technologist were present throughout the entire procedure. Dr. Shankar performed the entire procedure without an ict sales assistant. Audible Time Out Time: 1001 Procedure Start Time: 1015 Procedure Stop Time: 101 LEFT ultrasound guided needle localization of a biopsy proven carcinoma marked with a CORK clip in the lower inner quadrant posterior depth, seen at 8:00 6cmFN. Correlation is made to exams dated: 10/18/2023 breast MRI - [facility], 09/25/2023 mammogram - [facility], 10/23/2023 mammogram - [facility], 09/25/2023 ultrasound, and 09/25/2023 mammogram. An infrared activated electromagnetic reflector device placement using ultrasound guidance was performed for the concerning area of asymmetry located in the left breast at 8 o'clock posterior depth. This was described on the previous ultrasound and biopsy reports. The skin was prepped in the usual manner. Local anesthetic was administered to the access site. A skin audra was made in the breast. The localization was approached from the caudocranial aspect. A location device was inserted into the targeted area through an introducer device under ultrasound guidance. The patient received additional local anesthetic during the procedure. A sterile dressing was applied to the access site. Post placement digital mammographic and ultrasound imaging demonstrates location device traverses the targeted area. IMPRESSION IMPRESSION: INFRARED ACTIVATED ELECTROMAGNETIC REFLECTOR DEVICE PLACEMENT Infrared activated electromagnetic reflector device placement for the area of asymmetry in the left breast at 8 o'clock posterior depth with placement of an infrared activated electromagnetic reflector device was successful with no apparent post procedure complications. A surgical excision and a specimen radiograph are recommended. It is noted that the clip is likely migrated from the mass and is not able to be included on the post-biopsy mammogram. THe NORMA reflector is in place at the site of the mammographic mass seen on original diagnostic imaging. Clip placement/activation was verified with Learning Facilitator Check following the procedure. THE PATIENT IS ALSO RECOMMENDED FOR MULTIPLE ADDITIONAL MRI GUIDED BIOPSIES BILATERALLY AND IS SCHEDULED FOR THOSE EXAMS. Consuelo Shankar M.D., jr/oanh:10/23/2023 12:25:39 Bundler(s): Yuko Cordon, [facility] Multiple national specialty organizations have released breast cancer screening guidelines for women at average risk for developing breast cancer - guidelines that are based on both evidence and opinion, yet differ on when to start and how often to screen for breast cancer. With representation from Breast Imaging, Internal Medicine, Women's Health, Family Medicine, and Medical/Surgical Oncology, the [facility] has carefully reviewed the data and reached the following consensus: 1) All women should engage in shared decision-making with their providers to decide when to start and how often to screen; 2) All women should have the opportunity to start screening mammography at age 40; 3) For women ages 45-55, we recommend annual screening mammograms; 4) For women ages 55 and over, we support both the transition from an annual to a biennial interval if this aligns more with patient's values and preferences, or veronica (more content not included)... [facility] Radiology Study observation (narrative) [facility] No Panel Informationon 10-22 IMPRESSION: INFRARED ACTIVATED ELECTROMAGNETIC REFLECTOR DEVICE PLACEMENT Infrared activated electromagnetic reflector device placement for the area of asymmetry in the left breast at 8 o'clock posterior depth with placement of an infrared activated electromagnetic reflector device was successful with no apparent post procedure complications. A surgical excision and a specimen radiograph are recommended. It is noted that the clip is likely migrated from the mass and is not able to be included on the post-biopsy mammogram. THe NORMA reflector is in place at the site of the mammographic mass seen on original diagnostic imaging. Clip placement/activation was verified with Learning Facilitator Check following the procedure. THE PATIENT IS ALSO RECOMMENDED FOR MULTIPLE ADDITIONAL MRI GUIDED BIOPSIES BILATERALLY AND IS SCHEDULED FOR THOSE EXAMS. Consuelo Shankar M.D., jr/oanh:10/23/2023 12:25:39 Bundler(s): Yuko Cordon, [facility] Multiple national specialty organizations have released breast cancer screening guidelines for women at average risk for developing breast cancer - guidelines that are based on both evidence and opinion, yet differ on when to start and how often to screen for breast cancer. With representation from Breast Imaging, Internal Medicine, Women's Health, Family Medicine, and Medical/Surgical Oncology, the [facility] has carefully reviewed the data and reached the following consensus: 1) All women should engage in shared decision-making with their providers to decide when to start and how often to screen; 2) All women should have the opportunity to start screening mammography at age 40; 3) For women ages 45-55, we recommend annual screening mammograms; 4) For women ages 55 and over, we support both the transition from an annual to a biennial interval if this aligns more with patient's values and preferences, or continuation with annual screening; 5) All women should discuss with their providers when to stop screening mammograms. Integrity Director: Oanh Transcribe Date/Time: Oct 23 2023 9:45A Dictated by : CONSUELO SHANKAR MD This examination was interpreted and the report reviewed and electronically signed by: CONSUELO SHANKAR MD on Oct 23 2023 12:[facility] DIVISION OF RADIOLOGY No Panel InformationOrdered By: [facility] Provider on 10-23-2023 [facility] PT EDon 10-23-2023 PT ED Normal [facility] US Guidance for localization of Breast - lefton 10-23-2023 * * *Final Report* * * DATE OF EXAM: Oct 23 2023 10:43AM [facility] 0599 - [facility] US LOC BREAST LT / PROCEDURE REASON: multiple diagnoses * * * * Physician Interpretation * * * * RESULT: #[id number] - [facility] DIAGNOSTIC LT #[id number] - [facility] US LOC BREAST LT ULTRASOUND GUIDED INFRARED ACTIVATED ELECTROMAGNETIC REFLECTOR DEVICE PLACEMENT LEFT BREAST WITH POST DIGITAL MAMMOGRAPHIC AND ULTRASOUND IMAGIN10/23/2023 HISTORY: The patient presents for LEFT ultrasound guided needle 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 Pre and post localization hard copy sonographic images were obtained. post clip films. PATIENT CONSENT: A time out was performed immediately prior to procedure start with the radiology team, correctly identifying the patient name, date of , procedure, anatomy (including marking of site and side), patient position, relevant diagnostic and radiology test results, safety precautions, and procedure-specific equipment needs. The procedure was explained to the patient including the risks, benefits and alternatives. Medications and allergies were also reviewed. The risks, including but not limited to infection and bleeding, were reviewed by the performing physician and the patient agreed to undergo the procedure. The radiologist and technologist were present throughout the entire procedure. Dr. Shankar performed the entire procedure without an ict sales assistant. Audible Time Out Time: 1001 Procedure Start Time: 1015 Procedure Stop Time: 1018 LEFT ultrasound guided needle localization of a biopsy proven carcinoma marked with a CORK clip in the lower inner quadrant posterior depth, seen at 8:00 6cmFN. Correlation is made to exams dated: 10/18/2023 breast MRI - [facility], 09/25/2023 mammogram - [facility], 10/23/2023 mammogram - [facility] [place], 09/25/2023 ultrasound, and 09/25/2023 mammogram. An infrared activated electromagnetic reflector device placement using ultrasound guidance was performed for the concerning area of asymmetry located in the left breast at 8 o'clock posterior depth. This was described on the previous ultrasound and biopsy reports. The skin was prepped in the usual manner. Local anesthetic was administered to the access site. A skin audra was made in the breast. The localization was approached from the caudocranial aspect. A location device was inserted into the targeted area through an introducer device under ultrasound guidance. The patient received additional local anesthetic during the procedure. A sterile dressing was applied to the access site. Post placement digital mammographic and ultrasound imaging demonstrates location device traverses the targeted area. DIVISION OF RADIOLOGY Provider, [facility] - 10/23/2023 * * *Final Report* * * DATE OF EXAM: Oct 23 2023 10:43AM [facility] 0599 - [facility] US LOC BREAST LT / PROCEDURE REASON: multiple diagnoses * * * * Physician Interpretation * * * * RESULT: #[id number] - [facility] DIAGNOSTIC LT #[id number] - [facility] US LOC BREAST LT ULTRASOUND GUIDED INFRARED ACTIVATED ELECTROMAGNETIC REFLECTOR DEVICE PLACEMENT LEFT BREAST WITH POST DIGITAL MAMMOGRAPHIC AND ULTRASOUND IMAGIN10/23/2023 HISTORY: The patient presents for LEFT ultrasound guided needle 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 Pre and post localization hard copy sonographic images were obtained. post clip films. PATIENT CONSENT: A time out was performed immediately prior to procedure start with the radiology team, correctly identifying the patient name, date of , procedure, anatomy (including marking of site and side), patient position, relevant diagnostic and radiology test results, safety precautions, and procedure-specific equipment needs. The procedure was explained to the patient including the risks, benefits and alternatives. Medications and allergies were also reviewed. The risks, including but not limited to infection and bleeding, were reviewed by the performing physician and the patient agreed to undergo the procedure. The radiologist and technologist were present throughout the entire procedure. Dr. Shankar performed the entire procedure without an ict sales assistant. Audible Time Out Time: 1001 Procedure Start Time: 1015 Procedure Stop Time: 101 LEFT ultrasound guided needle localization of a biopsy proven carcinoma marked with a CORK clip in the lower inner quadrant posterior depth, seen at 8:00 6cmFN. Correlation is made to exams dated: 10/18/2023 breast MRI - [facility], 09/25/2023 mammogram - [facility], 10/23/2023 mammogram - [facility], 09/25/2023 ultrasound, and 09/25/2023 mammogram. An infrared activated electromagnetic reflector device placement using ultrasound guidance was performed for the concerning area of asymmetry located in the left breast at 8 o'clock posterior depth. This was described on the previous ultrasound and biopsy reports. The skin was prepped in the usual manner. Local anesthetic was administered to the access site. A skin audra was made in the breast. The localization was approached from the caudocranial aspect. A location device was inserted into the targeted area through an introducer device under ultrasound guidance. The patient received additional local anesthetic during the procedure. A sterile dressing was applied to the access site. Post placement digital mammographic and ultrasound imaging demonstrates location device traverses the targeted area. IMPRESSION IMPRESSION: INFRARED ACTIVATED ELECTROMAGNETIC REFLECTOR DEVICE PLACEMENT Infrared activated electromagnetic reflector device placement for the area of asymmetry in the left breast at 8 o'clock posterior depth with placement of an infrared activated electromagnetic reflector device was successful with no apparent post procedure complications. A surgical excision and a specimen radiograph are recommended. It is noted that the clip is likely migrated from the mass and is not able to be included on the post-biopsy mammogram. THe NORMA reflector is in place at the site of the mammographic mass seen on original diagnostic imaging. Clip placement/activation was verified with Learning Facilitator Check following the procedure. THE PATIENT IS ALSO RECOMMENDED FOR MULTIPLE ADDITIONAL MRI GUIDED BIOPSIES BILATERALLY AND IS SCHEDULED FOR THOSE EXAMS. Consuelo Shankar M.D., jr/oanh:10/23/2023 12:25:39 Bundler(s): Yuko Cordon, [facility] Multiple national specialty organizations have released breast cancer screening guidelines for women at average risk for developing breast cancer - guidelines that are based on both evidence and opinion, yet differ on when to start and how often to screen for breast cancer. With representation from Breast Imaging, Internal Medicine, Women's Health, Family Medicine, and Medical/Surgical Oncology, the [facility] has carefully reviewed the data and reached the following consensus: 1) All women should engage in shared decision-making with their providers to decide when to start and how often to screen; 2) All women should have the opportunity to start screening mammography at age 40; 3) For women ages 45-55, we recommend annual screening mammograms; 4) For women ages 55 and over, we support both the transition from an annual to a biennial interval if this aligns more with patient's values and preferences, or co (more content not included)... [facility] Radiology Study observation (narrative) [facility] CNPNon 10-22-2023 CNPN Normal [facility] CNOVon 10-21-2023 CNOV Normal [facility] MR Breast - bilateral WO and W contrast Rohit 10-21-2023 IMPRESSION: SUSPICIO US RIGHT BREAST: BIRADS 4 1. 1.4 cm linear nonmass enhancement in the lower outer right breast is suspicious. MR guided biopsy is recommended. 2. 1.5 cm clumped non mass enhancement in the lower central right breast may be related to background parenchymal enhancement. Management will be based on histopathology of the biopsied linear nonmass enhancement in the lower outer right breast. LEFT BREAST: BIRADS 4 1. 0.8 cm enhancing mass in the lower inner left breast consistent with known biopsy proven malignancy. There is associated nonmass enhancement extending posteriorly towards the pectoralis muscle, without definite muscular involvement, with an aggregate measurement of 3.8 cm. 2. 0.4 cm enhancing focus superior and anterior to the index malignancy is suspicious. MR guided biopsy is recommended. SUMMARY: The patient is under the care of Dr Sanchez. The breast imaging navigator will contact the patient to schedule an appointment for the MR guided biopsies. Yolette mercado/oanh:10/21/2023 14:15:13 Bundler(s): Cecilia Malave, [facility] MRI BI-RADS: Category 4: Suspicious Multiple national specialty organizations have released breast cancer screening guidelines for women at average risk for developing breast cancer - guidelines that are based on both evidence and opinion, yet differ on when to start and how often to screen for breast cancer. With representation from Breast Imaging, Internal Medicine, Women's Health, Family Medicine, and Medical/Surgical Oncology, the [facility] has carefully reviewed the data and reached the following consensus: 1) All women should engage in shared decision-making with their providers to decide when to start and how often to screen; 2) All women should have the opportunity to start screening mammography at age 40; 3) For women ages 45-55, we recommend annual screening mammograms; 4) For women ages 55 and over, we support both the transition from an annual to a biennial interval if this aligns more with patient's values and preferences, or continuation with annual screening; 5) All women should discuss with their providers when to stop screening mammograms. 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 RESULT: Comparison is made to exams dated: 09/25/2023 mammogram, 08/27/2023 ultrasound, 08/27/2023 mammogram, 08/22/2023 mammogram - [facility], and 09/25/2023 ultrasound. Interpretation of this MRI was correlated with available mammograms, ultrasounds, and clinical information. MRI images were obtained. The patient was studied using the Sentinelle dedicated breast biopsy coil in the Siemens 1.5 Susannah scanner. Initial axial STIR imaging was carried out followed by axial T1-weighted GRE imaging both before and after IV administration of 16 ml of Dotarem. Subsequently, subtraction imaging and 3-D reconstruction were completed on an independent workstation. Interpretation of this MRI was correlated with available mammograms, ultrasounds, previous MRI scans and clinical information. MRI images were obtained at 1.5 mm intervals and at 5 mm coronal intervals with a dedicated breast coil. Examination includes pre-contrast and post-contrast imaging in the axial plane at 1 minutes. Post processing was performed including motion subtraction, color parametric mapping and 3D multiplanar reconstruction. Complex volumetric analysis requiring post processing performed using a semi-automated software Dynacad, on an independent workstation by the physician, with images created reviewed and archived. FINDINGS: Bilateral background breast enhancement is mild. RIGHT BREAST: There is linear nonmass enhancement in the lower outer right breast measuring 1.4 cm (SE 99755 IM 122; SE 1021, IM 93). There is clumped nonmass enhancement in the lower central right breast measuring 1.5 x 1.0 cm (SE 35327 IM 115; SE 1021, IM 102). This demonstrates persistent kinetic enhancement. There is no internal mammary or axillary lymphadenopathy. LEFT BREAST: There is a 0.8 x 0.7 cm irregular enhancing mass in the posterior lower inner left breast consistent with known biopsy proven malignancy. This demonstrates washout kinetic enhancement. The biopsy clip is seen slightly lateral to the known malignancy. There is associated nonmass enhancement extending posteriorly towards the pectoralis muscle, with an aggregate measurement of 3.8 cm. There is mild effacement of the fat plane posteriorly with mild tenting of the pectoralis major, without definite enahncement of the muscle to suggest muscular involvement. Anterior and superior to the index malignancy, there is a 0.4 cm enhancing focus which demonstrates plateau kinetic enhancement (SE 73965, IM 105; SE 1021, IM 266). There is no internal mammary or axillary lymphadenopathy. MISCELLANEOUS: No suspicious extramammary findings are seen. 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 RESULT: Comparison is made to exams dated: 09/25/2023 mammogram, 08/27/2023 ultrasound, 08/27/2023 mammogram, 08/22/2023 mammogram - [facility], and 09/25/2023 ultrasound. Interpretation of this MRI was correlated with available mammograms, ultrasounds, and clinical information. MRI images were obtained. The patient was studied using the Sentinelle dedicated breast biopsy coil in the Siemens 1.5 Susannah scanner. Initial axial STIR imaging was carried out followed by axial T1-weighted GRE imaging both before and after IV administration of 16 ml of Dotarem. Subsequently, subtraction imaging and 3-D reconstruction were completed on an independent workstation. Interpretation of this MRI was correlated with available mammograms, ultrasounds, previous MRI scans and clinical information. MRI images were obtained at 1.5 mm intervals and at 5 mm coronal intervals with a dedicated breast coil. Examination includes pre-contrast and post-contrast imaging in the axial plane at 1 minutes. Post processing was performed including motion subtraction, color parametric mapping and 3D multiplanar reconstruction. Complex volumetric analysis requiring post processing performed using a semi-automated software Dynacad, on an independent workstation by the physician, with images created reviewed and archived. FINDINGS: Bilateral background breast enhancement is mild. RIGHT BREAST: There is linear nonmass enhancement in the lower outer right breast measuring 1.4 cm (SE 14674 IM 122; SE 1021, IM 93). There is clumped nonmass enhancement in the lower central right breast measuring 1.5 x 1.0 cm (SE 81728 IM 115; SE 1021, IM 102). This demonstrates persistent kinetic enhancement. There is no internal mammary or axillary lymphadenopathy. LEFT BREAST: There is a 0.8 x 0.7 cm irregular enhancing mass in the posterior lower inner left breast consistent with known biopsy proven malignancy. This demonstrates washout kinetic enhancement. The biopsy clip is seen slightly lateral to the known malignancy. There is associated nonmass enhancement extending posteriorly towards the pectoralis muscle, with an aggregate measurement of 3.8 cm. There is mild effacement of the fat plane posteriorly with mild tenting of the pectoralis major, without definite enahncement of the muscle to suggest muscular involvement. Anterior and superior to the index malignancy, there is a 0.4 cm enhancing focus which demonstrates plateau kinetic enhancement (SE 91716, IM 105; SE 1021, IM 266). There is no internal mammary or axillary lymphadenopathy. MISCELLANEOUS: No suspicious extramammary findings are seen. IMPRESSION IMPRESSION: SUSPICIOUS RIGHT BREAST: BIRADS 4 1. 1.4 cm linear nonmass enhancement in the lower outer right breast is suspicious. MR guided biopsy is recommended. 2. 1.5 cm clumped non mass enhancement in the lower central right breast may be related to background parenchymal enhancement. Management will be based on histopathology of the biopsied linear nonmass enhancement in the lower outer right breast. LEFT BREAST: BIRADS 4 1. 0.8 cm enhancing mass in the lower inner left breast consistent with known biopsy proven malignancy. There is associated nonmass enhancement extending posteriorly towards the pectoralis muscle, without definite muscular involvement, with an aggregate measurement of 3.8 cm. 2. 0.4 cm enhancing focus superior and anterior to the index malignancy is suspicious. MR guided biopsy is recommended. SUMMARY: The patient is under the care of Dr Sanchez. The breast imaging navigator will contact the patient to schedule an appointment for the MR guided biopsies. Yolette mercado/oanh:10/21/2023 14:15:13 Bundler(s): Cecilia Malave, [facility] MRI BI-RADS: Category 4: Suspicious Multiple national specialty organizations have released breast cancer screening guidelines for women at average risk for developing breast cancer - guidelines that are based on both evidence and opinion, yet differ on when to start and how often to screen for breast cancer. With representation from Breast Imaging, Internal Medicine, Women's Health, Family Medicine, and Medical/Surgical Oncology, the [facility] has carefully reviewed the data and reached the following consensus: 1) All women should engage in shared decision-making with their providers to decide when to sta (more content not included)... [facility] MR Breast - bilateral WO and W contrast IVOrdered By: [facility] Provider on 10-21-2023 [facility] MR Breast - bilateral WO and W contrast Rohit 10-18-2023 Radiology Study observation (narrative) [facility] MRI BREAST WO/W IVCON BILon 10-18-2023 MRI BREAST WO/W IVCON JINNY [facility] CNPNon 10-14-2023 CNPN Normal [facility] CNOVon 10-11-2023 CNOV Office Visit (GENSF) RADHA WITT ([id number]) 1950 F Date Time Provider Department 10/11/23 3:00 PM EVITA SANCHEZ During your visit today, we recorded the following information about you: Weight Height 78.7 kg 1.753 m Evita Sanchez DO 10/13/2023 9:34 PM Signed NEW BREAST CANCER - INITIAL SURGICAL VISIT SERVICE DATE: 10/11/2023 REFERRING PROVIDER: Luna Cope Consult requested for an opinion regarding the evaluation and treatment of a new breast issue. My final impression and recommendations will be communicated back to the requesting physician by way of the shared medical record or letter via US mail. SUBJECTIVE: REASON FOR TODAY'S VISIT: Breast Cancer Evaluation HISTORY of PRESENT ILLNESS: Radha Witt is a 73 year old White female who presents for an evaluation of a diagnosis of LEFT breast cancer. PMHx s/f MV prolapse, HTN, migraines, arthritis, and uterine cancer s/p NEO. Patient underwent screening mammogram on 08/22/23 that demonstrated focal asymmetry in the left best that was indeterminate. F/u diagnostic mammogram revealed 0.6 x 0.6 x 0.7 mass with circumscribed margin in the L breast at 8 o'clock middle depth, ultrasound of L axilla was negative. She underwent ultrasound-guided biopsy with Dr. Norris in office (09/24), titanium clip was placed at time of biopsy. Diagnosis was made at [facility] by means of ultrasound-guided core biopsy of Left breast. 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 She is now presenting for surgical evaluation. In clinic today, patient has no complaints at this time. She endorses prior excisional biopsies for masses she felt in her breast, but these all returned benign. She also denies any breast pain, overlying skin dimpling/tenting, nipple discharges, or axillary lymphadenopathy. She also denies any f/c, unintended weight loss, night sweats, or chest pain. No family history of breast cancer. HISTORY OF BREAST PROCEDURE(S): Yes: - R excisional biopsy -> benign 1985 excisional biopsy -> benign 2016 biopsy -> benign microcalcifications and fibroadenoma PAST MEDICAL HISTORY: PAST MEDICAL HISTORY Diagnosis Date Abnormal mammogram of left breast 08/22/2023 08/27/23 abnormal diagnostic left breast ultrasound. 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 Difficult intravenous access 04/03/2021 Diverticulitis of colon (without mention of hemorrhage)(562.11) Essential hypertension, benign on Toprol Female stress incontinence Migraine with aura, without mention of intractable migraine without mention of status migrainosus Nonspecific (abnormal) findings on radiological and other examination of gastrointestinal tract PAST SURGICAL HISTORY: PAST SURGICAL HISTORY Procedure Laterality Date BREAST SURGERY HX BX BREAST W/DEVICE 1ST LESION STEREOTACTIC GUID Right 01/31/2017 Benign microcalcifications and a fibroadenoma BX OF BREAST; INCISIONAL 2023 COLON SURGERY HX 04/04/2021 LAPAROSCOPIC COLECTOMY SIGMOID COLON W/ COLORECTAL ANASTOMOSIS COLONOSCOPY FLX DX W/COLLJ SPEC WHEN PFRMD 12/20/2006 COLONOSCOPY FLX DX W/COLLJ SPEC WHEN PFRMD 12/20/2016 Colonoscopy COLONOSCOPY FLX DX W/COLLJ SPEC WHEN PFRMD 03/16/2021 PAST SURGICAL HISTORY OF breast biopsies x 2 SKIN BIOPSY HX TONSILLECTOMY HX TONSILLECTOMY PRIMARY/SECONDARY TOTAL ABDOMINAL HYSTERECT W/WO RMVL TUBE OVARY Hysterectomy, NEO uterine cancer US BREAST NEEDLE CORE BIOPSY LT Left 09/2023 VAGINAL HYSTERECTOMY OBSTETRIC RELATED 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 Normal [facility] CNOVon 10-09-2023 CNOV Normal [facility] Breast - left Diagnostic for implanton 09-25-2023 * * *Final Report* * * DATE OF EXAM: Sep 25 2023 1:49PM [facility] [place] 06[address] [facility] DIAGNOSTIC LT / PROCEDURE REASON: Abnormal mammogram * * * * Physician Interpretation * * * * RESULT: #[id number] - [facility] DIAGNOSTIC LT UNILATERAL LEFT DIGITAL DIAGNOSTIC MAMMOGRAM WITH CAD: 09/25/2023 HISTORY: Abnormal Mammogram /Post breast local reflector placement. /priors available for comparison. RESULT: TECHNIQUE: The study was acquired using full field digital technology and interpreted from soft copy. Current study was also evaluated with a Computer Aided Detection (CAD). Comparison is made to exams dated: 08/27/2023 mammogram, 08/22/2023 mammogram, 08/15/2022 mammogram, 08/11/2021 mammogram, and 08/10/2020 mammogram - [facility]. The left breast is heterogeneously dense, which may obscure small masses. There is a new biopsy clip in the left breast. DIVISION OF RADIOLOGY Provider, [facility] - 09/25/2023 * * *Final Report* * * DATE OF EXAM: Sep 25 2023 1:49PM [facility] [place] 0621 - [facility] DIAGNOSTIC LT / PROCEDURE REASON: Abnormal mammogram * * * * Physician Interpretation * * * * RESULT: #[id number] - [facility] DIAGNOSTIC LT UNILATERAL LEFT DIGITAL DIAGNOSTIC MAMMOGRAM WITH CAD: 09/25/2023 HISTORY: Abnormal Mammogram /Post breast local reflector placement. /priors available for comparison. RESULT: TECHNIQUE: The study was acquired using full field digital technology and interpreted from soft copy. Current study was also evaluated with a Computer Aided Detection (CAD). Comparison is made to exams dated: 08/27/2023 mammogram, 08/22/2023 mammogram, 08/15/2022 mammogram, 08/11/2021 mammogram, and 08/10/2020 mammogram - [facility]. The left breast is heterogeneously dense, which may obscure small masses. There is a new biopsy clip in the left breast. IMPRESSION IMPRESSION: POST PROCEDURE MAMMOGRAM FOR MARKER PLACEMENT Jude rao/oanh:09/25/2023 14:06:33 Bundler(s): Anahi Earl [facility] Mammogram BI-RADS: Post-procedure mammogram for marker placement Multiple national specialty organizations have released breast cancer screening guidelines for women at average risk for developing breast cancer - guidelines that are based on both evidence and opinion, yet differ on when to start and how often to screen for breast cancer. With representation from Breast Imaging, Internal Medicine, Women's Health, Family Medicine, and Medical/Surgical Oncology, the [facility] has carefully reviewed the data and reached the following consensus: 1) All women should engage in shared decision-making with their providers to decide when to start and how often to screen; 2) All women should have the opportunity to start screening mammography at age 40; 3) For women ages 45-55, we recommend annual screening mammograms; 4) For women ages 55 and over, we support both the transition from an annual to a biennial interval if this aligns more with patient's values and preferences, or continuation with annual screening; 5) All women should discuss with their providers when to stop screening mammograms. Integrity Director: Oanh Transcribe Date/Time: Sep 25 2023 1:35P Dictated by: JUDE IQBAL MD This examination was interpreted and the report reviewed and electronically signed by: JUDE IQBAL MD on Sep 25 2023 2:06PM EST [facility] Radiology Study observation (narrative) [facility] MG Breast - left Diagnostic for implantOrdered By: [facility] Provider on 09-25-2023 [facility] US BREAST BIOPSY LEFT (POC) SURG USE ONLYon 09-25-2023 [facility] UA DIP, URINE (POC)on 2023 BILIRUBIN UA (POCT) Negative Negative [facility] CLARITY UA (POCT) Cloudy [facility] COLOR UA (POCT) Dark yellow [facility] GLUCOSE UA (POCT) Negative Negative mg/dL [facility] Hemoglobin Ql (U) Large Abnormal Negative [facility] Interpretation and review of laboratory results Abnormal [facility] KETONE UA (POCT) Trace Negative mg/dL [facility] LEUKOCYTES UA (POCT) Small Abnormal Negative [facility] NITRITE UA (POCT) Negative Negative [facility] PH UA (POCT) 6.0 4.5 - 8.0 [facility] Protein Ql (U) >=300 Abnormal Negative mg/dL [facility] SPECIFIC GRAVITY UA (POCT) 1.020 1.005 - 1.030 [facility] UROBILINOGEN UA (POCT) 0.2 Normal E.U./dL [facility] Location:[address], [place], [place], [id number] [place] [address] POINT OF CARE [facility] DBT Breast - left diagnostic for implanton 08-27-2023 * * *Final Report* * * DATE OF EXAM: Aug 27 2023 11:50AM [facility] 0628 - [facility] [email or web address] W QUE LT / PROCEDURE REASON: Inconclusive mammogram * * * * Physician Interpretation * * * * RESULT: #[id number] - [facility] DIAG W QUE LT #[id number] - [facility] US BREAST LTD LT UNILATERAL LEFT DIGITAL DIAGNOSTIC MAMMOGRAM TOMOSYNTHESIS WITH CAD: 08/27/2023 HISTORY: / Call back/abnormal mamm: Left /priors available for comparison Inconclusive Mammogram Inconclusive Mammogram. RESULT: TECHNIQUE: The study was acquired using full field digital technology and interpreted from soft copy. Digital Breast Tomosynthesis (DBT) images were obtained and used to assist in the interpretation of this examination. Current study was also evaluated with a Computer Aided Detection (CAD). Comparison is made to exams dated: 08/22/2023 mammogram, 08/15/2022 mammogram, 08/11/2021 mammogram, and 08/10/2020 mammogram - [facility]. The left breast is heterogeneously dense, which may obscure small masses. There is a 1.1 cm asymmetry in the left breast posterior depth inferior region seen on the mediolateral oblique view only. No other significant masses or calcifications are seen in the breast. DIVISION OF RADIOLOGY Provider, [facility] - 08/27/2023 * * *Final Report* * * DATE OF EXAM: Aug 27 2023 11:50AM [facility] 0628 - [facility] DIAG W QUE LT / PROCEDURE REASON: Inconclusive mammogram * * * * Physician Interpretation * * * * RESULT: #[id number] - [facility] DIAG W QUE LT #[id number] - [facility] US BREAST LTD LT UNILATERAL LEFT DIGITAL DIAGNOSTIC MAMMOGRAM TOMOSYNTHESIS WITH CAD: 08/27/2023 HISTORY: / Call back/abnormal mamm: Left /priors available for comparison Inconclusive Mammogram Inconclusive Mammogram. RESULT: TECHNIQUE: The study was acquired using full field digital technology and interpreted from soft copy. Digital Breast Tomosynthesis (DBT) images were obtained and used to assist in the interpretation of this examination. Current study was also evaluated with a Computer Aided Detection (CAD). Comparison is made to exams dated: 08/22/2023 mammogram, 08/15/2022 mammogram, 08/11/2021 mammogram, and 08/10/2020 mammogram - [facility]. The left breast is heterogeneously dense, which may obscure small masses. There is a 1.1 cm asymmetry in the left breast posterior depth inferior region seen on the mediolateral oblique view only. No other significant masses or calcifications are seen in the breast. IMPRESSION IMPRESSION: INCOMPLETE: NEEDS ADDITIONAL IMAGING EVALUATION The 1.1 cm asymmetry in the left breast is indeterminate. An ultrasound is recommended. LIMITED ULTRASOUND OF LEFT BREAST: 08/27/2023 RESULT: Comparison is made to exams dated: 08/22/2023 mammogram, 08/15/2022 mammogram, 08/11/2021 mammogram, and 08/10/2020 mammogram - [facility]. Color flow and real-time ultrasound of the left breast lower inner quadrant were performed. [place] scale images of the real-time examination were reviewed. There is a 0.6 cm x 0.6 cm x 0.7 cm oval mass with a circumscribed margin in the left breast at 8 o'clock middle depth. This oval mass is hypoechoic with internal echoes. This correlates with mammography findings. Directed ultrasound of the left axilla was negative. IMPRESSION: SUSPICIOUS FINDING - BIOPSY SHOULD BE CONSIDERED The 0.6 cm x 0.6 cm x 0.7 cm oval mass in the left breast is suspicious of malignancy. An ultrasound guided biopsy is recommended. Negative left axillary ultrasound. Jude rao/oanh:08/27/2023 12:46:56 Multiple national specialty organizations have released breast cancer screening guidelines for women at average risk for developing breast cancer - guidelines that are based on both evidence and opinion, yet differ on when to start and how often to screen for breast cancer. With representation from Breast Imaging, Internal Medicine, Women's Health, Family Medicine, and Medical/Surgical Oncology, the [facility] has carefully reviewed the data and reached the following consensus: 1) All women should engage in shared decision-making with their providers to decide when to start and how often to screen; 2) All women should have the opportunity to start screening mammography at age 40; 3) For women ages 45-55, we recommend annual screening mammograms; 4) For women ages 55 and over, we support both the transition from an annual to a biennial interval if this aligns more with patient's values and preferences, or continuation with annual screening; 5) All women should discuss with their providers when to stop screening mammograms. Bundler(s): Danielle Mora, [facility]; RT Nash(R)(M), [facility] OVERALL STUDY BIRADS: 4 Suspicious finding - Biopsy should be considered Integrity Director: Oanh Transcribe Date/Time: Aug 27 2023 11:24A Dictated by: JUDE IQBAL MD This examination was interpreted and the report reviewed and electronically signed by: JUDE IQBAL MD on Aug 27 2023 12:46PM EST [facility] No Panel Informationon 08-26 Radiology Study observation (narrative) [facility] No Panel InformationOrdered By: Ccf Provider on 08-27-2023 [facility] US Breast - left limitedon 0 08-27-2023 * * *Final Report* * * DATE OF EXAM: Aug 27 2023 11:57AM U 0593 - ZAC US BREAST LTD LT / PROCEDURE REASON: Inconclusive mammogram * * * * Physician Interpretation * * * * #[id number] - ZAC DIAG W QUE LT #[id number] - [facility] US BREAST LTD LT UNILATERAL LEFT DIGITAL DIAGNOSTIC MAMMOGRAM TOMOSYNTHESIS WITH CAD: 08/27/2023 HISTORY: / Call back/abnormal mamm: Left /priors available for comparison Inconclusive Mammogram Inconclusive Mammogram. RESULT: TECHNIQUE: The study was acquired using full field digital technology and interpreted from soft copy. Digital Breast Tomosynthesis (DBT) images were obtained and used to assist in the interpretation of this examination. Current study was also evaluated with a Computer Aided Detection (CAD). Comparison is made to exams dated: 08/22/2023 mammogram, 08/15/2022 mammogram, 08/11/2021 mammogram, and 08/10/2020 mammogram - [facility]. The left breast is heterogeneously dense, which may obscure small masses. There is a 1.1 cm asymmetry in the left breast posterior depth inferior region seen on the mediolateral oblique view only. No other significant masses or calcifications are seen in the breast. DIVISION OF RADIOLOGY Provider, [facility] - 08/27/2023 * * *Final Report* * * DATE OF EXAM: Aug 27 2023 11:57AM U 0593 - [facility] Call Britannia BREAST LTD LT / PROCEDURE REASON: Inconclusive mammogram * * * * Physician Interpretation * * * * #[id number] - ZAC DIAG W QUE LT #[id number] - [facility] US BREAST LTD LT UNILATERAL LEFT DIGITAL DIAGNOSTIC MAMMOGRAM TOMOSYNTHESIS WITH CAD: 08/27/2023 HISTORY: / Call back/abnormal mamm: Left /priors available for comparison Inconclusive Mammogram Inconclusive Mammogram. RESULT: TECHNIQUE: The study was acquired using full field digital technology and interpreted from soft copy. Digital Breast Tomosynthesis (DBT) images were obtained and used to assist in the interpretation of this examination. Current study was also evaluated with a Computer Aided Detection (CAD). Comparison is made to exams dated: 08/22/2023 mammogram, 08/15/2022 mammogram, 08/11/2021 mammogram, and 08/10/2020 mammogram - [facility]. The left breast is heterogeneously dense, which may obscure small masses. There is a 1.1 cm asymmetry in the left breast posterior depth inferior region seen on the mediolateral oblique view only. No other significant masses or calcifications are seen in the breast. IMPRESSION IMPRESSION: INCOMPLETE: NEEDS ADDITIONAL IMAGING EVALUATION The 1.1 cm asymmetry in the left breast is indeterminate. An ultrasound is recommended. LIMITED ULTRASOUND OF LEFT BREAST: 08/27/2023 RESULT: Comparison is made to exams dated: 08/22/2023 mammogram, 08/15/2022 mammogram, 08/11/2021 mammogram, and 08/10/2020 mammogram - [facility]. Color flow and real-time ultrasound of the left breast lower inner quadrant were performed. [place] scale images of the real-time examination were reviewed. There is a 0.6 cm x 0.6 cm x 0.7 cm oval mass with a circumscribed margin in the left breast at 8 o'clock middle depth. This oval mass is hypoechoic with internal echoes. This correlates with mammography findings. Directed ultrasound of the left axilla was negative. IMPRESSION: SUSPICIOUS FINDING - BIOPSY SHOULD BE CONSIDERED The 0.6 cm x 0.6 cm x 0.7 cm oval mass in the left breast is suspicious of malignancy. An ultrasound guided biopsy is recommended. Negative left axillary ultrasound. Jude rao/oanh:08/27/2023 12:46:56 Multiple national specialty organizations have released breast cancer screening guidelines for women at average risk for developing breast cancer - guidelines that are based on both evidence and opinion, yet differ on when to start and how often to screen for breast cancer. With representation from Breast Imaging, Internal Medicine, Women's Health, Family Medicine, and Medical/Surgical Oncology, the [facility] has carefully reviewed the data and reached the following consensus: 1) All women should engage in shared decision-making with their providers to decide when to start and how often to screen; 2) All women should have the opportunity to start screening mammography at age 40; 3) For women ages 45-55, we recommend annual screening mammograms; 4) For women ages 55 and over, we support both the transition from an annual to a biennial interval if this aligns more with patient's values and preferences, or continuation with annual screening; 5) All women should discuss with their providers when to stop screening mammograms. Bundler(s): Danielle Mora, [facility]; Christie Pink, RT(R)(M), [facility] OVERALL STUDY BIRADS: 4 Suspicious finding - Biopsy should be considered Integrity Director: Oanh Transcribe Date/Time: Aug 27 2023 11:24A Dictated by : JUDE IQBAL MD This examination was interpreted and the report reviewed and electronically signed by: JUDE IQBAL MD on Aug 27 2023 12:46PM EST [facility] Flexible sigmoidoscopy study on 07-11-2023 [facility] CBC W Auto Differential pane l (Bld)on 05-21-2023 Basophils (Bld) [#/Vol] 0.05 10*3/uL <0.11 k/uL [facility] Basophils/100 WBC (Bld) 0.5 % [facility] Differential cell count method Nom (Bld) Auto [facility] Eosinophils (Bld) [#/Vol] 0.17 10*3/uL <0.46 k/uL [facility] Eosinophils/100 WBC (Bld) 1.7 % [facility] Erythrocyte distribution width (RBC) [Ratio] 13.2 % 11.5 - 15.0 % [facility] Hematocrit (Bld) [Volume fraction] 49.1 % High 36.0 - 46.0 % [facility] Hemoglobin (Bld) [Mass/Vol] 16.5 g/dL High 11.5 - 15.5 g/dL [facility] Immature granulocytes (Bld) [#/Vol] <0.10 k/uL [facility] Immature granulocytes/100 WBC (Bld) 0.2 % [facility] Lymphocytes (Bld) [#/Vol] 3.26 10*3/uL 1.00 - 4.00 k/uL [facility] Lymphocytes/100 WBC (Bld) 32.5 % [facility] MCH (RBC) [Entitic mass] 31.4 pg 26.0 - 34.0 pg [facility] MCHC (RBC) [Mass/Vol] 33.6 g/dL 30.5 - 36.0 g/dL [facility] MCV (RBC) [Entitic vol] 93.5 fL 80.0 - 100.0 fL [facility] Monocytes (Bld) [#/Vol] 0.66 10*3/uL <0.87 k/uL [facility] Monocytes/100 WBC (Bld) 6.6 % [facility] Neutrophils (Bld) [#/Vol] 5.88 10*3/uL 1.45 - 7.50 k/uL [facility] Neutrophils/100 WBC (Bld) 58.5 % [facility] Nucleated RBC (Bld) [#/Vol] <0.01 k/uL [facility] Nucleated RBC/100 WBC (Bld) [Ratio] 0.0 /100 WBC [facility] Platelet mean volume (Bld) [Entitic vol] 9.7 fL 9.0 - 12.7 fL [facility] Platelets (Bld) [#/Vol] 205 10*3/uL 150 - 400 k/uL [facility] RBC (Bld) [#/Vol] 5.25 10*6/uL High 3.90 - 5.2 0 m/uL [facility] WBC (Bld) [#/Vol] 10.04 10*3/uL 3.70 - 11 .00 k/uL [facility] CT Abdomen and Pelvis W cont rast Rohit 05-21-2023 [facility] Comprehensive metabolic 2000 panelon 05-21-2023 Albumin [Mass/Vol] 4.4 g/dL 3.9 - 4.9 g/dL [facility] ALP [Catalytic activity/Vol] 102 U/L 34 - 123 U/L [facility] ALT [Catalytic activity/Vol] 28 U/L 7 - 38 U/L [facility] Anion gap [Moles/Vol] 9 mmol/L 9 - 18 mmol/L [facility] AST [Catalytic activity/Vol] 22 U/L 13 - 35 U/L [facility] Bilirubin [Mass/Vol] 0.5 mg/dL 0.2 - 1 .3 mg/dL [facility] Calcium [Mass/Vol] 10.2 mg/dL 8.5 - 10. 2 mg/dL [facility] Chloride [Moles/Vol] 104 mmol/L 97 - 10 5 mmol/L [facility] CO2 [Moles/Vol] 27 mmol/L 22 - 30 mmol/L [facility] Creatinine [Mass/Vol] 1.06 mg/dL High 0.58 - 0.96 mg/dL [facility] Estimated Glomerular Filtration Rate 56 mL/min/1.73m Low >=60 mL/min/1.73m [facility] Glucose [Mass/Vol] 90 mg/dL 74 - 99 mg/dL [facility] Potassium [Moles/Vol] 3.8 mmol/L 3.7 - 5.1 mmol/L [facility] Protein [Mass/Vol] 7.1 g/dL 6.3 - 8.0 g/dL [facility] Sodium [Moles/Vol] 140 mmol/L 136 - 144 mmol/L [facility] Urea nitrogen [Mass/Vol] 17 mg/dL 7 - 21 mg/dL [facility] UA DIP, URINE (POC)on 2023 BILIRUBIN UA (POCT) Negative Negative [facility] CLARITY UA (POCT) Cloudy [facility] COLOR UA (POCT) Yellow [facility] GLUCOSE UA (POCT) Negative Negative mg/dL [facility] Hemoglobin Ql (U) Negative Negative [facility] KETONE UA (POCT) Negative Negative mg/dL [facility] LEUKOCYTES UA (POCT) Negative Negative [facility] NITRITE UA (POCT) Negative Negative [facility] PH UA (POCT) 7.0 4.5 - 8.0 [facility] Protein Ql (U) Negative Negative mg/dL [facility] SPECIFIC GRAVITY UA (POCT) 1.025 1.005 - 1.030 [facility] UROBILINOGEN UA (POCT) 0.2 E.U./dL Normal E.U./dL [facility] - right PA and Later al and Obliqueon 09-07-2022 IMPRESSION: No acute osseous abnormality Integrity Director: ALICIA Transcribe Date/Time: Sep 07 2022 8:20A Dictated by : LAURA DEL CASTILLO MD This examination was interpreted and the report reviewed and electronically signed by: LAURA DEL CASTILLO MD on Sep 07 2022 8:24AM [facility] DIVISION OF RADIOLOGY * * *Final Report* * * DATE OF EXAM: Sep 03 2022 7:36PM [id number] - XR HAND 3V PA/LAT/OBL RT / PROCEDURE REASON: Pain of right hand * * * * Physician Interpretation * * * * EXAMINATION: XR HAND 3V PA/LAT/OBL RT CLINICAL HISTORY: Right hand pain Technique: XR HAND 3V PA/LAT/OBL RT -- RIGHT with 3 views on 3 images Comparison: None RESULT: No acute fracture or dislocation. Joint spaces are maintained. No periarticular erosions. DIVISION OF RADIOLOGY Provider, [facility] Dillan franklin [place] - 09/07/2022 * * *Final Report* * * DATE OF EXAM: Sep 03 2022 7:36PM [id number] - XR HAND 3V PA/LAT/OBL RT / PROCEDURE REASON: Pain of right hand * * * * Physician Interpretation * * * * EXAMINATION: XR HAND 3V PA/LAT/OBL RT CLINICAL HISTORY: Right hand pain Technique: XR HAND 3V PA/LAT/OBL RT -- RIGHT with 3 views on 3 images Comparison: None RESULT: No acute fracture or dislocation. Joint spaces are maintained. No periarticular erosions. IMPRESSION IMPRESSION: No acute osseous abnormality Integrity Director: PSCB Transcribe Date/Time: Sep 07 2022 8:20A Dictated by : LAURA DEL CASTILLO MD This examination was interpreted and the report reviewed and electronically signed by: LAURA DEL CASTILLO MD on Sep 07 2022 8:24AM EST [facility] XR Hand - right PA and Later al and ObliqueOrdered By: Ccf Provider on 09-07-2022 [facility] XR Hand - right PA and Later al and Obliqueon 09-03-2022 Radiology Study observation (narrative) [facility] ZAC SCREENING W TOMOon 08-15 [facility] Basophil percentageon 2021 Bilirubin [Mass/Vol] 0.50 mg/dL [facility]20[facility] Comment on above: For patients on eltr ombopag therapy, use of Dimension [place] TBIL is not recommended. Cholesterol [Mass/Vol] 138 mg/dL <200 [facility] Work Phone: Comment on above: <200 mg/dL Desirable 200-240 mg/dL Borderline >240 mg/dL High Risk Protein [Mass/Vol] 6.5 g/dL 6.4-8.2 [facility] Work Phone: Triglyceride [Mass/Vol] 199 mg/dL <199 [facility] Work Phone: Comment on above: The drugs N-Acetylcy steine and Metamizole may falsely depress this assay.Serum Triglycerides Reference Interval Normal <150 mg/dL Borderline high 150 - 199 mg/dL High 200 - 499 mg/dL Very High > or = 500 mg/dL Direct bilirubinon Bilirubin.direct [Mass/Vol] 0.15 mg/dL 0.00-0.30 [facility] Work Phone: Laboratory - Chemistry and C hemistry - challengeon 03-05-2022 ALP [Catalytic activity/Vol] 81 U/L 45-117 [facility] Work Phone: ALT [Catalytic activity/Vol] 34 U/L 13-56 [facility] Work Phone: Globulin (S) [Mass/Vol] 3.0 g/dL 2.2-4.2 [facility] Work Phone: [phone] Serum or plasma albumin sol urement (mass/volume)on 03-05-2022 Albumin [Mass/Vol] 3.5 g/dL 3.2-5.0 [facility] Work Phone: Serum or plasma cholesterol in HDL measurement (mass/volume)on 03-05-2022 Cholesterol in HDL [Mass/Vol] 52 mg/dL >40 [facility] Work Phone: Comment on above: The drugs N-Acetylcy steine and Metamizole may falsely depress this assay. Reference Range HDL <40 mg/dL Low HDL Cholesterol HDL >or= 60 mg/dL High HDL Cholesterol Serum or plasma cholesterol in VLDL measurement (mass/volume)on 03-05-2022 Cholesterol in VLDL [Mass/Vol] 40 mg/dL 5-40 [facility] Work Phone: [phone] Serum or plasma low density lipoprotein (LDL) cholesterol measurement (mass/volume)on 03-05-2022 Cholesterol in LDL [Mass/Vol] 46 mg/dL 0-130 [facility] Work Phone: [phone] Thin prep Papanicolaou smear with manual screeningon 03-05-2022 Thin prep Papanicolaou smear with manual screening 19 U/L 15-37 [facility] Work Phone: Basophil percentageon 2021 Bilirubin [Mass/Vol] 0.60 mg/dL 0.20-1.00 [facility] Work [facility]: [phone] Comment on above: For patients on eltr ombopag therapy, use of Dimension [place] TBIL is not recommended. Cholesterol [Mass/Vol] 151 mg/dL <200 [facility] Work Phone: Comment on above: <200 mg/dL Desirable 200-240 mg/dL Borderline >240 mg/dL High Risk Protein [Mass/Vol] 7.1 g/dL 6.4-8.2 [facility] Work Phone: [phone] Triglyceride [Mass/Vol] 149 mg/dL <199 [facility] Work Phone: [phone] Comment on above: The drugs N-Acetylcy steine and Metamizole may falsely depress this assay.Serum Triglycerides Reference Interval Normal <150 mg/dL Borderline high 150 - 199 mg/dL High 200 - 499 mg/dL Very High > or = 500 mg/dL Direct bilirubinon Bilirubin.direct [Mass/Vol] 0.16 mg/dL 0.00-0.30 [facility] Work Phone: [phone] Laboratory - Chemistry and C hemistry - challengeon 10-06-2021 ALP [Catalytic activity/Vol] 81 U/L 45-117 [facility] Work Phone: [phone] ALT [Catalytic activity/Vol] 24 U/L 13-56 [facility] Work Phone: [phone] Globulin (S) [Mass/Vol] 3.3 g/dL 2.2-4.2 [facility] Work Phone: [phone] Serum or plasma albumin sol urement (mass/volume)on 10-06-2021 Albumin [Mass/Vol] 3.8 g/dL 3.2-5.0 [facility] Work Phone: Serum or plasma cholesterol in HDL measurement (mass/volume)on 10-06-2021 Cholesterol in HDL [Mass/Vol] 55 mg/dL >40 [facility] Work Phone: Comment on above: The drugs N-Acetylcy steine and Metamizole may falsely depress this assay. Reference Range HDL <40 mg/dL Low HDL Cholesterol HDL >or= 60 mg/dL High HDL Cholesterol Serum or plasma cholesterol in VLDL measurement (mass/volume)on 10-06-2021 Cholesterol in VLDL [Mass/Vol] 30 mg/dL 5-40 [facility] Work Phone: Serum or plasma low density lipoprotein (LDL) cholesterol measurement (mass/volume)on 10-06-2021 Cholesterol in LDL [Mass/Vol] 66 mg/dL 0-130 [facility] Work Phone: Thin prep Papanicolaou smear with manual screeningon 10-06-2021 Thin prep Papanicolaou smear with manual screening 20 U/L 15-37 [facility] Work Phone: ZAC SCREENING W [place] 08-11 [facility] Lab Report: Lipid Profileon 03-27-2017 Cholesterol 144 mg/dL Invalid Interpretation Code 200 [facility] Work Phone: [phone] HDL Cholesterol 58 mg/dL Invalid Interpretation Code [facility] Work Phone: [phone] LDL Cholesterol 57 mg/dL Invalid Interpretation Code 0-130 [facility] Work Phone: [phone] Triglyceride 147 mg/dL Invalid Interpretation Code [facility] Work Phone: very low density lipoproteins 29 mg/dL Invalid Interpretation Code 5-40 [facility] Work Phone: [phone] Lab Report: Liver Profileon 03-27-2017 Alanine aminotransferase (ALT) 29 U/L Invalid Interpretation Code 12-78 [facility] Work Phone: [phone] Albumin 3.9 g/dL Invalid Interpretation Code 3.4-5.0 [facility] Work Phone: [phone] Alkaline phosphatase (ALP) 101 U/L Invalid Interpretation Code 45-117 [facility] Work Phone: [phone] Aspartate aminotransferase (AST) 20 U/L Invalid Interpretation Code 15-37 [facility] Work Phone: [phone] Bilirubin (direct) 0.16 mg/dL Invalid Interpretation Code 0.00-0.30 [facility] Work Phone: [phone] Bilirubin (total) 0.60 mg/dL Invalid Interpretation Code 0.20-1.00 [facility] Work Phone: [phone] Globulin 3.4 g/dL Invalid Interpretation Code 2.2-4.2 [facility] Work Phone: [phone] Protein 7.3 g/dL Invalid Interpretation Code 6.4-8.2 [facility] Work Phone: [phone] Office Visiton 06-06-2016 Documentation of current medications (procedure) Done Invalid Interpretation Code [facility] Phone: [phone] Clinical Lists Update: 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-28-2016 Left ventricular Ejection fraction 65 % Invalid Interpretation Code [facility] Phone: [phone] Clinical Lists Update: Pre flower grower 05-20-2015 BUN/Creatinine Ratio 17.4 mg/mg Invalid Interpretation Code [facility] Work Phone: [phone] Calcium 8.7 mg/dL Invalid Interpretation Code [facility] Work Phone: [phone] Chloride 105 mmol/L Invalid Interpretation Code [facility] Work Phone: [phone] CO2 29.0 mmol/L Invalid Interpretation Code [facility] Work Phone: [phone] Creatinine 1.09 mg/dL Invalid Interpretation Code [facility] Work Phone: [phone] Glucose 111 mg/dL Invalid Interpretation Code [facility] Work Phone: [phone] Hematocrit (HCT) 41.9 % Invalid Interpretation Code [facility] Work Phone: [phone] Hemoglobin (HGB) 14.1 g/dL Invalid Interpretation Code [facility] Work Phone: [phone] Platelets 222 10*3/mm3 Invalid Interpretation Code [facility] Work Phone: [phone] Potassium 3.7 mmol/L Invalid Interpretation Code [facility] Work Phone: [phone] Sodium 140 mmol/L Invalid Interpretation Code [facility] Work Phone: [phone] Thyroid stimulating hormone (TSH) 3.00 u[iU]/mL Invalid Interpretation Code [facility] Work Phone: [phone] Urea nitrogen 19 mg/dL Invalid Interpretation Code [facility] Work Phone: [phone] WBC (Leukocytes) 6.7 10*3/uL Invalid Interpretation Code [facility] Work Phone: [phone] Office Visiton 12-01-2014 General cardiovascular disease 10Y risk [#] [place].D'[place]ost[place] 4 % Invalid Interpretation Code [facility] Phone: [phone] Tobacco smoking status NHIS Tobacco smoking status NHIS Invalid Interpretation Code [facility] Phone: [phone] Office Visit: [facility] 05-17-19 15 cardiac risk group B Invalid Interpretation Code [facility] Phone: [phone] Tobacco smoking status NHIS Never Invalid Interpretation Code [facility] Work Phone: [phone] Replaced Document: [facility] CG Observationson 05-17-2014 electrocardiogram interpretation Sinus Bradycardia Low voltage -possible pulmonary disease. ABNORMAL Invalid Interpretation Code [facility] Phone: [phone] GE use only - for [employer] import when terms are not otherwise specified 401 ms Invalid Interpretation Code [facility] Phone: [phone] P wave axis, electrocardiogram 39 deg Invalid Interpretation Code [facility] Work Phone: [phone] DE interval, electrocardiogram 156 ms Invalid Interpretation Code [facility] Work Phone: [phone] Pulse (Heart Rate) 58 /min Invalid Interpretation Code [facility] Work Phone: [phone] QRS axis, electrocardiogram 35 deg Invalid Interpretation Code [facility] Work Phone: [phone] QRS duration, electrocardiogram 82 ms Invalid Interpretation Code [facility] Work Phone: [phone] QT interval, electrocardiogram new path ms Invalid Interpretation Code [facility] Work Phone: [phone] T wave axis, electrocardiogram 42 deg Invalid Interpretation Code [facility] Work Phone: [phone] Vital Signs Date Time Vital Sign Value Performing Clinician Facility 10-08-2024 11:34-0400 Body height 175.[address] Luna Cope MD Work Phone: [facility] 10-08-2024 11:34-0400 Body mass index (BMI) [Ratio] 24.5 kg/m2 Dr. Luna Cope MD Work Phone: [facility] 10-08-2024 11:34-0400 Body weight 75.[address] Luna Cope MD Work Phone: [facility] 10-08-2024 11:34-0400 Diastolic blood pressure 77 mm[Hg] Dr. Luna Cope MD Work Phone: [facility] 10-08-2024 11:34-0400 Heart rate 69 /min Dr. Luna Cope MD Work Phone: [facility] 10-08-2024 11:34-0400 Respiratory rate 16 /min Dr. Luna Cope MD Work Phone: [facility] 10-08-2024 11:34-0400 Systolic blood pressure 132 mm[Hg] Dr. Luna Cope MD Work Phone: [facility] 10-05-2024 08:10-0400 Body mass index (BMI) [Ratio] 24.44 kg/m2 Luna Cope MD Work Phone: [facility] 10-05-2024 08:10-0400 Body weight 74.84 kg Luna Cope MD Work Phone: [facility] 10-05-2024 08:10-0400 Diastolic blood pressure 68 mm[Hg] Luna Cope MD Work Phone: [facility] 10-05-2024 08:10-0400 Heart rate 65 /min Luna Cope MD Work Phone: [facility] 10-05-2024 08:10-0400 SaO2% (BldA) [Mass fraction] 95 % Luna Cope MD Work Phone: [facility] 10-05-2024 08:10-0400 Systolic blood pressure 104 mm[Hg] Luna Cope MD Work Phone: [facility] 08-28-2024 09:56-0400 Body height 175 cm Luna Cope MD Work Phone: [facility] 08-28-2024 09:56-0400 Body mass index (BMI) [Ratio] 23.99 kg/m2 Luna Cope MD Work Phone: [facility] 08-28-2024 09:56-0400 Body weight 73.48 kg Luna Cope MD Work Phone: [facility] 08-28-2024 09:56-0400 Diastolic blood pressure 62 mm[Hg] Luna Cope MD Work Phone: [facility] 08-28-2024 09:56-0400 Heart rate 64 /min Luna Cope MD Work Phone: [facility] 08-28-2024 09:56-0400 SaO2% (BldA) [Mass fraction] 97 % Luna Cope MD Work Phone: [facility] 08-28-2024 09:56-0400 Systolic blood pressure 102 mm[Hg] Luna Cope MD Work Phone: [facility] 07-01-2024 15:37-0400 Body mass index (BMI) [Ratio] 24.94 kg/m2 Luna Cope MD Work Phone: [facility] 07-01-2024 15:37-0400 Body temperature 97 [degF] Luna Cope MD Work Phone: [facility] 07-01-2024 15:37-0400 Body weight 74.39 kg Luna Cope MD Work Phone: [facility] 07-01-2024 15:37-0400 Diastolic blood pressure 72 mm[Hg] Luna Cope MD Work Phone: [facility] 07-01-2024 15:37-0400 Heart rate 71 /min Luna Cope MD Work Phone: [facility] 07-01-2024 15:37-0400 SaO2% (BldA) [Mass fraction] 98 % Luna Cope MD Work Phone: [facility] 07-01-2024 15:37-0400 Systolic blood pressure 122 mm[Hg] Luna Cope MD Work Phone: [facility] 06-23-2024 12:41-0400 Body mass index (BMI) [Ratio] 24.94 kg/m2 Audie Hemphill Work Phone: [facility] 06-23-2024 12:41-0400 Body temperature 97.11 [degF] Audie Hemphill Work Phone: [facility] 06-23-2024 12:41-0400 Body weight 74.39 kg Audie Hemphill Work Phone: [facility] 06-23-2024 12:41-0400 Diastolic blood pressure 73 mm[Hg] Audie Hemphill Work Phone: [facility] 06-23-2024 12:41-0400 Heart rate 63 /min Audie Hemphill Work Phone: [facility] 06-23-2024 12:41-0400 SaO2% (BldA) [Mass fraction] 98 % Audie Hemphill Work Phone: [facility] 06-23-2024 12:41-0400 Systolic blood pressure 136 mm[Hg] Audie Hemphill Work Phone: [facility] 04-14-2024 13:41-0500 Body mass index (BMI) [Ratio] 24.42 kg/m2 Benson Pierer MD Work Phone: [facility] 04-14-2024 13:41-0500 Body temperature 96.49 [degF] Benson Pierre MD Work Phone: [facility] 04-14-2024 13:41-0500 Body weight 72.85 kg Benson Pierre MD Work Phone: [facility] 04-14-2024 13:41-0500 Diastolic blood pressure 74 mm[Hg] Benson Pierre MD Work Phone: [facility] 04-14-2024 13:41-0500 Heart rate 69 /min Benson Pierre MD Work Phone: [facility] 04-14-2024 13:41-0500 SaO2% (BldA) [Mass fraction] 97 % Benson Pierre MD Work Phone: [facility] 04-14-2024 13:41-0500 Systolic blood pressure 128 mm[Hg] Benson Pierre MD Work Phone: [facility] 04-07-2024 14:03-0500 Body mass index (BMI) [Ratio] 24.63 kg/m2 Benson Pierre MD Work Phone: [facility] 04-07-2024 14:03-0500 Body temperature 96.1 [degF] Benson Pierre MD Work Phone: [facility] 04-07-2024 14:03-0500 Body weight 73.48 kg Benson Pierre MD Work Phone: [facility] 04-07-2024 14:03-0500 Diastolic blood pressure 76 mm[Hg] Benson Pierre MD Work Phone: [facility] 04-07-2024 14:03-0500 Heart rate 62 /min Benson Pierre MD Work Phone: [facility] 04-07-2024 14:03-0500 SaO2% (BldA) [Mass fraction] 99 % Benson Pierre MD Work Phone: [facility] 04-07-2024 14:03-0500 Systolic blood pressure 118 mm[Hg] Benson Pierre MD Work Phone: [facility] 03-31-2024 14:04-0500 Body temperature 96.21 [degF] Benson Pierre MD Work Phone: [facility] 03-31-2024 14:04-0500 Diastolic blood pressure 80 mm[Hg] Benson Pierre MD Work Phone: [facility] 03-31-2024 14:04-0500 Heart rate 67 /min Benson Pierre MD Work Phone: [facility] 03-31-2024 14:04-0500 SaO2% (BldA) [Mass fraction] 99 % Benson Pierre MD Work Phone: [facility] 03-31-2024 14:04-0500 Systolic blood pressure 128 mm[Hg] Benson Pierre MD Work Phone: [facility] 03-24-2024 09:49-0500 Body mass index (BMI) [Ratio] 24.48 kg/m2 Glen Iglesias MD Work Phone: [facility] 03-24-2024 09:49-0500 Body temperature 97 [degF] Glen Iglesias MD Work Phone: [facility] 03-24-2024 09:49-0500 Body weight 73.03 kg Glen Iglesias MD Work Phone: [facility] 03-24-2024 09:49-0500 Diastolic blood pressure 71 mm[Hg] Glen Iglesias MD Work Phone: [facility] 03-24-2024 09:49-0500 Heart rate 66 /min Glen Iglesias MD Work Phone: [facility] 03-24-2024 09:49-0500 SaO2% (BldA) [Mass fraction] 99 % Glen Iglesias MD Work Phone: [facility] 03-24-2024 09:49-0500 Systolic blood pressure 115 mm[Hg] Glen Iglesias MD Work Phone: [facility] 03-24-2024 09:41-0500 Body mass index (BMI) [Ratio] 22.96 kg/m2 Gildardo Neri MD Work Phone: [facility] 03-24-2024 09:41-0500 Body temperature 97 [degF] Gildardo Neri MD Work Phone: [facility] 03-24-2024 09:41-0500 Body weight 68.49 kg Gildardo Neri MD Work Phone: [facility] 03-24-2024 09:41-0500 Diastolic blood pressure 71 mm[Hg] Gildardo Neri MD Work Phone: [facility] 03-24-2024 09:41-0500 Heart rate 66 /min Gildardo Neri MD Work Phone: [facility] 03-24-2024 09:41-0500 SaO2% (BldA) [Mass fraction] 99 % Gildardo Neri MD Work Phone: [facility] 03-24-2024 09:41-0500 Systolic blood pressure 115 mm[Hg] Gildardo Neri MD Work Phone: [facility] 03-17-2024 13:54-0500 Body temperature 96.49 [degF] Benson Pierre MD Work Phone: [facility] 03-17-2024 13:54-0500 Diastolic blood pressure 70 mm[Hg] Benson Pierre MD Work Phone: [facility] 03-17-2024 13:54-0500 Heart rate 75 /min Benson Pierre MD Work Phone: [facility] 03-17-2024 13:54-0500 SaO2% (BldA) [Mass fraction] 97 % Benson Pierre MD Work Phone: [facility] 03-17-2024 13:54-0500 Systolic blood pressure 108 mm[Hg] Benson Pierre MD Work Phone: [facility] 02-19-2024 10:29-0500 Body height 172.7 cm Luna Cope MD Work Phone: [facility] 02-19-2024 10:29-0500 Body mass index (BMI) [Ratio] 24.34 kg/m2 Luna Cope MD Work Phone: [facility] 02-19-2024 10:29-0500 Body weight 72.6 kg Luna Cope MD Work Phone: [facility] 02-19-2024 10:29-0500 Diastolic blood pressure 60 mm[Hg] Luna Cope MD Work Phone: [facility] 02-19-2024 10:29-0500 Heart rate 84 /min Luna Cope MD Work Phone: [facility] 02-19-2024 10:29-0500 SaO2% (BldA) [Mass fraction] 98 % Luna Cope MD Work Phone: [facility] 02-19-2024 10:29-0500 Systolic blood pressure 116 mm[Hg] Luna Cope MD Work Phone: [facility] 02-13-2024 07:53-0500 Body mass index (BMI) [Ratio] 24.46 kg/m2 Treatment Wstr Work Phone: [facility] 02-13-2024 07:53-0500 Body temperature 96.8 [degF] Treatment [facility]str Work Phone: [facility] 02-13-2024 07:53-0500 Body weight 74.39 kg Treatment Wstr Work Phone: [facility] 02-13-2024 07:53-0500 Diastolic blood pressure 70 mm[Hg] Treatment Wstr Work Phone: [facility] 02-13-2024 07:53-0500 Heart rate 79 /min Treatment Wstr Work Phone: [facility] 02-13-2024 07:53-0500 SaO2% (BldA) [Mass fraction] 96 % Treatment [facility]str Work Phone: [facility] 02-13-2024 07:53-0500 Systolic blood pressure 114 mm[Hg] Treatment [facility]str Work Phone: [facility] 02-07-2024 11:58-0500 Body mass index (BMI) [Ratio] 24.16 kg/m2 Glen Iglesias MD Work Phone: [facility] 02-07-2024 11:58-0500 Body temperature 98.2 [degF] Glen Iglesias MD Work Phone: [facility] 02-07-2024 11:58-0500 Body weight 73.48 kg Glen Iglesias MD Work Phone: [facility] 02-07-2024 11:58-0500 Diastolic blood pressure 81 mm[Hg] Glen Iglesias MD Work Phone: [facility] 02-07-2024 11:58-0500 Heart rate 92 /min Glen Iglesias MD Work Phone: [facility] 02-07-2024 11:58-0500 SaO2% (BldA) [Mass fraction] 98 % Glen Iglesias MD Work Phone: [facility] 02-07-2024 11:58-0500 Systolic blood pressure 125 mm[Hg] Glen Iglesias MD Work Phone: [facility] 01-21-2024 09:50-0400 Body mass index (BMI) [Ratio] 25.05 kg/m2 Treatment [facility] Work Phone: [facility] 01-21-2024 09:50-0400 Body temperature 96.49 [degF] Treatment [facility]str Work Phone: [facility] 01-21-2024 09:50-0400 Body weight 76.2 kg Treatment [facility]str Work Phone: [facility] 01-21-2024 09:50-0400 Diastolic blood pressure 72 mm[Hg] Treatment [facility]str Work Phone: [facility] 01-21-2024 09:50-0400 Heart rate 72 /min Treatment [facility]str Work Phone: [facility] 01-21-2024 09:50-0400 SaO2% (BldA) [Mass fraction] 97 % Treatment [facility]str Work Phone: [facility] 01-21-2024 09:50-0400 Systolic blood pressure 117 mm[Hg] Treatment [facility]str Work Phone: [facility] 01-17-2024 09:45-0400 Body mass index (BMI) [Ratio] 24.91 kg/m2 Audie Hemphill Work Phone: [facility] 01-17-2024 09:45-0400 Body temperature 97 [degF] Audie Hemphill Work Phone: [facility] 01-17-2024 09:45-0400 Body weight 75.75 kg Audie Hemphill Work Phone: [facility] 01-17-2024 09:45-0400 Diastolic blood pressure 74 mm[Hg] Audie Hemphill Work Phone: [facility] 01-17-2024 09:45-0400 Heart rate 74 /min Audie Hemphill Work Phone: [facility] 01-17-2024 09:45-0400 Respiratory rate 16 /min Audie Hemphill Work Phone: [facility] 01-17-2024 09:45-0400 SaO2% (BldA) [Mass fraction] 100 % Audie Hemphill Work Phone: [facility] 01-17-2024 09:45-0400 Systolic blood pressure 112 mm[Hg] Audie Hemphill Work Phone: [facility] 01-05-2024 11:26-0400 Body mass index (BMI) [Ratio] 24.56 kg/m2 Nurse [facility]str Work Phone: [facility] 01-05-2024 11:26-0400 Body temperature 98.71 [degF] Nurse Wstr Work Phone: [facility] 01-05-2024 11:26-0400 Body weight 74.7 kg Nurse Wstr Work Phone: [facility] 01-05-2024 11:26-0400 Heart rate 88 /min Nurse Wstr Work Phone: [facility] 01-05-2024 11:26-0400 Respiratory rate 16 /min Nurse Wstr Work Phone: [facility] 01-05-2024 11:26-0400 SaO2% (BldA) [Mass fraction] 98 % Nurse Wstr Work Phone: [facility] 12-31-2023 09:45-0400 Body mass index (BMI) [Ratio] 24.91 kg/m2 Treatment [facility]str Work Phone: [facility] 12-31-2023 09:45-0400 Body temperature 97.11 [degF] Treatment [facility]str Work Phone: [facility] 12-31-2023 09:45-0400 Body weight 75.75 kg Treatment [facility]str Work Phone: [facility] 12-31-2023 09:45-0400 Diastolic blood pressure 75 mm[Hg] Treatment [facility]str Work Phone: [facility] 12-31-2023 09:45-0400 Heart rate 70 /min Treatment [facility]str Work Phone: [facility] 12-31-2023 09:45-0400 Respiratory rate 14 /min Treatment [facility]str Work Phone: [facility] 12-31-2023 09:45-0400 SaO2% (BldA) [Mass fraction] 97 % Treatment [facility]str Work Phone: [facility] 12-31-2023 09:45-0400 Systolic blood pressure 126 mm[Hg] Treatment Wstr Work Phone: [facility] 12-27-2023 09:49-0400 Body mass index (BMI) [Ratio] 24.83 kg/m2 Audie Hemphill Work Phone: [facility] 12-27-2023 09:49-0400 Body temperature 97.2 [degF] Audie Hemphill Work Phone: [facility] 12-27-2023 09:49-0400 Body weight 75.52 kg Audie Hemphill Work Phone: [facility] 12-27-2023 09:49-0400 Diastolic blood pressure 76 mm[Hg] Audie Hemphill Work Phone: [facility] 12-27-2023 09:49-0400 Heart rate 68 /min Audie Hemphill Work Phone: [facility] 12-27-2023 09:49-0400 SaO2% (BldA) [Mass fraction] 97 % Audie Hemphill Work Phone: [facility] 12-27-2023 09:49-0400 Systolic blood pressure 122 mm[Hg] Audie Hemphill Work Phone: [facility] 12-10-2023 09:25-0400 Body height 174.4 cm Treatment [facility]str Work Phone: [facility] 12-10-2023 09:25-0400 Body mass index (BMI) [Ratio] 25.2 kg/m2 Treatment [facility]str Work Phone: [facility] 12-10-2023 09:25-0400 Body temperature 98.01 [degF] Treatment [facility]str Work Phone: [facility] 12-10-2023 09:25-0400 Body weight 76.66 kg Treatment Wstr Work Phone: [facility] 12-10-2023 09:25-0400 Diastolic blood pressure 78 mm[Hg] Treatment Wstr Work Phone: [facility] 12-10-2023 09:25-0400 Heart rate 65 /min Treatment [facility]str Work Phone: [facility] 12-10-2023 09:25-0400 Respiratory rate 18 /min Treatment [facility]str Work Phone: [facility] 12-10-2023 09:25-0400 SaO2% (BldA) [Mass fraction] 98 % Treatment [facility]str Work Phone: [facility] 12-10-2023 09:25-0400 Systolic blood pressure 127 mm[Hg] Treatment Wstr Work Phone: [facility] 11-29-2023 10:23-0400 Body mass index (BMI) [Ratio] 24.88 kg/m2 Benson Pierre MD Work Phone: [facility] 11-29-2023 10:23-0400 Body temperature 97 [degF] Benson Pierre MD Work Phone: [facility] 11-29-2023 10:23-0400 Body weight 76.43 kg Benson Pierre MD Work Phone: [facility] 11-29-2023 10:23-0400 Diastolic blood pressure 74 mm[Hg] Benson Pierre MD Work Phone: [facility] 11-29-2023 10:23-0400 Heart rate 67 /min Benson Pierre MD Work Phone: [facility] 11-29-2023 10:23-0400 Respiratory rate 16 /min Benson Pierre MD Work Phone: [facility] 11-29-2023 10:23-0400 SaO2% (BldA) [Mass fraction] 97 % Benson Pierre MD Work Phone: [facility] 11-29-2023 10:23-0400 Systolic blood pressure 109 mm[Hg] Benson Pierre MD Work Phone: [facility] 11-27-2023 14:30-0400 Body mass index (BMI) [Ratio] 25.03 kg/m2 Glen Iglesias MD Work Phone: [facility] 11-27-2023 14:30-0400 Body temperature 97.81 [degF] Glen Iglesias MD Work Phone: [facility] 11-27-2023 14:30-0400 Body weight 76.89 kg Geln Iglesias MD Work Phone: [facility] 11-27-2023 14:30-0400 Diastolic blood pressure 77 mm[Hg] Glen Iglesias MD Work Phone: [facility] 11-27-2023 14:30-0400 Heart rate 69 /min Glen Iglesias MD Work Phone: [facility] 11-27-2023 14:30-0400 SaO2% (BldA) [Mass fraction] 98 % Glen Iglesias MD Work Phone: [facility] 11-27-2023 14:30-0400 Systolic blood pressure 114 mm[Hg] Glen Iglesias MD Work Phone: [facility] 10-24-2023 09:37-0400 Body mass index (BMI) [Ratio] 25.18 kg/m2 Benson Pierre MD Work Phone: [facility] 10-24-2023 09:37-0400 Body temperature 98.1 [degF] Benson Pierre MD Work Phone: [facility] 10-24-2023 09:37-0400 Body weight 77.34 kg Benson Pierre MD Work Phone: [facility] 10-24-2023 09:37-0400 Diastolic blood pressure 78 mm[Hg] Benson Pierre MD Work Phone: [facility] 10-24-2023 09:37-0400 Heart rate 61 /min Benson Pierre MD Work Phone: [facility] 10-24-2023 09:37-0400 Respiratory rate 14 /min Benson Pierre MD Work Phone: [facility] 10-24-2023 09:37-0400 SaO2% (BldA) [Mass fraction] 97 % Benson Pierre MD Work Phone: [facility] 10-24-2023 09:37-0400 Systolic blood pressure 116 mm[Hg] Benson Pierre MD Work Phone: [facility] 10-24-2023 09:05-0400 Body height 175.3 cm Glen Iglesias MD Work Phone: [facility] 10-24-2023 09:05-0400 Body mass index (BMI) [Ratio] 25.18 kg/m2 Glen Iglesias MD Work Phone: [facility] 10-24-2023 09:05-0400 Body temperature 98.1 [degF] Glen Iglesias MD Work Phone: [facility] 10-24-2023 09:05-0400 Body weight 77.34 kg Glen Iglesias MD Work Phone: [facility] 10-24-2023 09:05-0400 Diastolic blood pressure 78 mm[Hg] Glen Iglesias MD Work Phone: [facility] Comment on above: right arm 10-24-2023 09:05-0400 Heart rate 61 /min Glen Iglesias MD Work Phone: [facility] 10-24-2023 09:05-0400 Respiratory rate 14 /min Glen Iglseias MD Work Phone: [facility] 10-24-2023 09:05-0400 SaO2% (BldA) [Mass fraction] 97 % Glen Iglesias MD Work Phone: [facility] 10-24-2023 09:05-0400 Systolic blood pressure 116 mm[Hg] Glen Iglesias MD Work Phone: [facility] Comment on above: right arm 10-23-2023 08:18-0400 Body height 175.3 cm Pac 9 Work Phone: [facility] 10-23-2023 08:18-0400 Body mass index (BMI) [Ratio] 25.56 kg/m2 Pac 9 Work Phone: [facility] 10-23-2023 08:18-0400 Body temperature 97.39 [degF] Pac 9 Work Phone: [facility] 10-23-2023 08:18-0400 Body weight 78.5 kg Pac 9 Work Phone: [facility] 10-23-2023 08:18-0400 Diastolic blood pressure 70 mm[Hg] Pac 9 Work Phone: [facility] 10-23-2023 08:18-0400 Heart rate 59 /min Pac 9 Work Phone: [facility] 10-23-2023 08:18-0400 SaO2% (BldA) [Mass fraction] 99 % Pac 9 Work Phone: [facility] 10-23-2023 08:18-0400 Systolic blood pressure 124 mm[Hg] Pacc 9 Work Phone: [facility] 10-11-2023 15:03-0400 Body height 175.3 cm Evita Sanchez DO Work Phone: [facility] 10-11-2023 15:03-0400 Body mass index (BMI) [Ratio] 25.62 kg/m2 Evita Daniel DO Work Phone: [facility] 10-11-2023 15:03-0400 Body weight 78.7 kg Evita Sanchez DO Work Phone: [facility] 09-23-2023 12:56-0400 Body height 175.3 cm Layla Norris MD Work Phone: [facility] 09-23-2023 12:56-0400 Body mass index (BMI) [Ratio] 25.9 kg/m2 Layla Norris MD Work Phone: [facility] 09-23-2023 12:56-0400 Body temperature 97 [degF] Layla Norris MD Work Phone: [facility] 09-23-2023 12:56-0400 Body weight 79.56 kg Layla Norris MD Work Phone: [facility] 09-23-2023 12:56-0400 Diastolic blood pressure 70 mm[Hg] Layla Norris MD Work Phone: [facility] 09-23-2023 12:56-0400 Heart rate 94 /min Layla Norris MD Work Phone: [facility] 09-23-2023 12:56-0400 SaO2% (BldA) [Mass fraction] 100 % Layla Norris MD Work Phone: [facility] 09-23-2023 12:56-0400 Systolic blood pressure 118 mm[Hg] Layla Norris MD Work Phone: [facility] 09-02-2023 10:23-0400 Body mass index (BMI) [Ratio] 26.11 kg/m2 [facility] [employer] ENGINEER.MAORI PHYSIOTHER[employer]IST Work Phone: [facility] 09-02-2023 10:23-0400 Body temperature 97.59 [degF] [facility] DIESEL ENGINE ENGINEER.MAORI PHYSIOTHERAPIST Work Phone: [facility] 09-02-2023 10:23-0400 Body weight 80.2 kg [facility] DIESEL ENGINE ENGINEER.MAORI PHYSIOTHERAPIST Work Phone: [facility] 09-02-2023 10:23-0400 Diastolic blood pressure 78 mm[Hg] [facility] DIESEL ENGINE ENGINEER.MAORI PHYSIOTHERAPIST Work Phone: [facility] 09-02-2023 10:23-0400 Heart rate 79 /min [facility] DIESEL ENGINE ENGINEER.MAORI PHYSIOTHERAPIST Work Phone: [facility] 09-02-2023 10:23-0400 Respiratory rate 16 /min [facility] DIESEL ENGINE ENGINEER.MAORI PHYSIOTHERAPIST Work Phone: [facility] 09-02-2023 10:23-0400 SaO2% (BldA) [Mass fraction] 97 % [facility] DIESEL ENGINE ENGINEER.MAORI PHYSIOTHERAPIST Work Phone: [facility] 09-02-2023 10:23-0400 Systolic blood pressure 134 mm[Hg] [facility] DIESEL ENGINE ENGINEER.MAORI PHYSIOTHERAPIST Work Phone: [facility] 08-28-2023 08:55-0400 Body height 175.3 cm Luna Cope MD Work Phone: [facility] 08-28-2023 08:55-0400 Body mass index (BMI) [Ratio] 25.99 kg/m2 Luna Cope MD Work Phone: [facility] 08-28-2023 08:55-0400 Body weight 79.83 kg Luna Cpoe MD Work Phone: [facility] 08-28-2023 08:55-0400 Diastolic blood pressure 82 mm[Hg] Luna Cope MD Work Phone: [facility] 08-28-2023 08:55-0400 Heart rate 67 /min Luna Cope MD Work Phone: [facility] 08-28-2023 08:55-0400 Systolic blood pressure 127 mm[Hg] Luna Cope MD Work Phone: [facility] 08-14-2023 15:34-0400 Body height 175.3 cm Luna Cope MD Work Phone: [facility] 08-14-2023 15:34-0400 Body mass index (BMI) [Ratio] 26.14 kg/m2 Luna Cope MD Work Phone: [facility] 08-14-2023 15:34-0400 Body weight 80.29 kg Luna Cope MD Work Phone: [facility] 08-14-2023 15:34-0400 Diastolic blood pressure 82 mm[Hg] Luna Cope MD Work Phone: [facility] 08-14-2023 15:34-0400 Heart rate 75 /min Luna Cope MD Work Phone: [facility] 08-14-2023 15:34-0400 SaO2% (BldA) [Mass fraction] 97 % Luna Cope MD Work Phone: [facility] 08-14-2023 15:34-0400 Systolic blood pressure 134 mm[Hg] Luna Cope MD Work Phone: [facility] 07-11-2023 08:51-0400 Diastolic blood pressure 80 mm[Hg] Layla Norris MD Work Phone: [facility] 07-11-2023 08:51-0400 Heart rate 72 /min Layla Norris MD Work Phone: [facility] 07-11-2023 08:51-0400 Respiratory rate 16 /min Layla Norris MD Work Phone: [facility] 07-11-2023 08:51-0400 SaO2% (BldA) [Mass fraction] 99 % Layla Norris MD Work Phone: [facility] 07-11-2023 08:51-0400 Systolic blood pressure 162 mm[Hg] Layla Norris MD Work Phone: [facility] 07-11-2023 07:29-0400 Body temperature 96.49 [degF] Layla Norris MD Work Phone: [facility] 07-11-2023 07:29-0400 Body weight 78.5 kg Layla Norris MD Work Phone: [facility] 06-25-2023 09:33-0400 Body weight 78.52 kg Layla Norris MD Work Phone: [facility] 06-25-2023 09:33-0400 Diastolic blood pressure 80 mm[Hg] Layla Norris MD Work Phone: [facility] 06-25-2023 09:33-0400 Heart rate 72 /min Layla Norris MD Work Phone: [facility] 06-25-2023 09:33-0400 Systolic blood pressure 129 mm[Hg] Layla Norris MD Work Phone: [facility] 05-21-2023 13:07-0500 Body height 175.3 cm Luna Cope MD Work Phone: [facility] 05-21-2023 13:07-0500 Body temperature 97.2 [degF] Luna Cope MD Work Phone: [facility] 05-21-2023 13:07-0500 Body weight 78.93 kg Luna Cope MD Work Phone: [facility] 05-21-2023 13:07-0500 Diastolic blood pressure 84 mm[Hg] Luna Cope MD Work Phone: [facility] 05-21-2023 13:07-0500 Heart rate 69 /min Luna Cope MD Work Phone: [facility] 05-21-2023 13:07-0500 SaO2% (BldA) [Mass fraction] 98 % Luna Cope MD Work Phone: [facility] 05-21-2023 13:07-0500 Systolic blood pressure 130 mm[Hg] Luna Cope MD Work Phone: [facility] 02-13-2023 16:34-0500 Body weight 78.47 kg Luna Cope MD Work Phone: [facility] 02-13-2023 16:34-0500 Diastolic blood pressure 72 mm[Hg] Luna Cope MD Work Phone: [facility] 02-13-2023 16:34-0500 Heart rate 71 /min Luna Cope MD Work Phone: [facility] 02-13-2023 16:34-0500 Respiratory rate 12 /min Luna Cope MD Work Phone: [facility] 02-13-2023 16:34-0500 SaO2% (BldA) [Mass fraction] 99 % Luna Cope MD Work Phone: [facility] 02-13-2023 16:34-0500 Systolic blood pressure 120 mm[Hg] Luna Cope MD Work Phone: [facility] 10-13-2022 11:50-0400 Body temperature 97 [degF] Krislyn Aberegg PA Work Phone: [facility] 10-13-2022 11:50-0400 Body weight 77.66 kg Krislyn Aberegg PA Work Phone: [facility] 10-13-2022 11:50-0400 Diastolic blood pressure 82 mm[Hg] Krislyn Aberegg PA Work Phone: [facility] 10-13-2022 11:50-0400 Heart rate 65 /min Krislyn Aberegg PA Work Phone: [facility] 10-13-2022 11:50-0400 Respiratory rate 21 /min Krislyn Aberegg PA Work Phone: [facility] 10-13-2022 11:50-0400 SaO2% (BldA) [Mass fraction] 98 % Krislyn Aberegg PA Work Phone: [facility] 10-13-2022 11:50-0400 Systolic blood pressure 126 mm[Hg] Thomas ARREAGA Work Phone: [facility] 09-03-2022 19:02-0400 Body weight 79.83 kg Luna Cope MD Work Phone: [facility] 09-03-2022 19:02-0400 Diastolic blood pressure 72 mm[Hg] Luna Cope MD Work Phone: [facility] 09-03-2022 19:02-0400 Heart rate 68 /min Luna Cope MD Work Phone: [facility] 09-03-2022 19:02-0400 Systolic blood pressure 110 mm[Hg] Luna Cope MD Work Phone: [facility] 02-05-2022 10:58-0500 Body weight 74.39 kg Luna Cope MD Work Phone: [facility] 02-05-2022 10:58-0500 Diastolic blood pressure 62 mm[Hg] uLna Cope MD Work Phone: [facility] 02-05-2022 10:58-0500 SaO2% (BldA) [Mass fraction] 97 % Luna Cope MD Work Phone: [facility] 02-05-2022 10:58-0500 Systolic blood pressure 108 mm[Hg] Luna Cope MD Work Phone: [facility] 09-11-2021 13:21-0400 Body height 175.[address] Luna Cope Work Phone: [facility] Work Phone: 09-11-2021 13:21-0400 Body mass index (BMI) [Ratio] 23.1 kg/m2 Dr. Luna Cope Work Phone: [facility] Work Phone: 09-11-2021 13:21-0400 Body weight 71.[address] Luna Cope Work Phone: [facility] Work Phone: 09-11-2021 13:21-0400 Diastolic blood pressure 69 mm[Hg] Dr. Luna Cope Work Phone: [facility] Work Phone: 09-11-2021 13:21-0400 Heart rate 67 /min Dr. Luna Cope Work Phone: [facility] Work Phone: 09-11-2021 13:21-0400 Respiratory rate 16 /min Dr. Luna Cope Work Phone: [facility] Work Phone: 09-11-2021 13:21-0400 Systolic blood pressure 112 mm[Hg] Dr. Luna Cope Work Phone: [facility] Work Phone: 07-31-2021 10:40-0400 Body weight 69.4 kg Luna Cope MD Work Phone: [facility] 07-31-2021 10:40-0400 Diastolic blood pressure 62 mm[Hg] Luna Cope MD Work Phone: [facility] 07-31-2021 10:40-0400 Heart rate 68 /min Luna Cope MD Work Phone: [facility] 07-31-2021 10:40-0400 Systolic blood pressure 92 mm[Hg] Luna Cope MD Work Phone: [facility] 07-21-2021 09:33-0400 Body height 175.3 cm Kenzie Clark APRN.MAORI PHYSIOTHERAPIST Work Phone: [facility] 07-21-2021 09:33-0400 Body weight 68.95 kg Kenzie Clark APRN.MAORI PHYSIOTHERAPIST Work Phone: [facility] 07-21-2021 09:33-0400 Diastolic blood pressure 62 mm[Hg] Kenzie Clark APRN.MAORI PHYSIOTHERAPIST Work Phone: [facility] 07-21-2021 09:33-0400 Systolic blood pressure 102 mm[Hg] Kenzie Clark APRN.MAORI PHYSIOTHERAPIST Work Phone: [facility] 06-06-2016 15:19-0500 BMI (Body Mass Index) 22.97 kg/m2 [facility] Work Phone: 06-06-2016 15:19-0500 BP Diastolic 64 mm[Hg] [facility] Work Phone: 06-06-2016 15:19-0500 BP Systolic 114 mm[Hg] [facility] Work Phone: 06-06-2016 15:19-0500 Height 176.53 cm [facility] Work Phone: 06-06-2016 15:19-0500 Pulse (Heart Rate) 72 /min [facility] Work Phone: 06-06-2016 15:19-0500 Respiratory Rate 12 /min [facility] Work Phone: 06-06-2016 15:19-0500 Weight 71.58 kg [facility] Work Phone: 12-19-2015 11:34-0400 BSA (Body Surface Area) 1.89 m2 [facility] Work Phone: Encounters Encounter Date Encounter Type Care Provider Facility Start: 10-19-2024 ambulatory Luna Cope Facility:[facility] Start: 10-09-2024 End: 10-09-2024 Chart abstracting Luna Cope MD Work Phone: [facility] Start: 10-08-2024 End: 10-08-[address] Luna Cope MD Work Phone: -Laboratory Start: 10-08-2024 End: 10-08-2024 Patient encounter procedure Tahira Ortiz PA -Laboratory Work Phone: Start: 10-08-2024 End: 10-08-2024 Patient encounter procedure Tahira Ortiz PA -[facility] Work Phone: Start: 10-08-2024 End: 10-08-[address] Luna Cope MD Work Phone: -[facility] Start: 10-08-2024 End: 10-08-2024 ambulatory Luna Heado Facility:[facility] Start: 10-05-2024 End: 10-05-2024 Subsequent hospital visit by physician Xr [facility] Work Phone: Radiology Comment on above: Lumbar pain [M54.50] Start: 10-05-2024 End: 10-05-2024 Patient encounter procedure Luna Cope MD Work Phone: [facility] Comment on above: Lumbar pain (Primary Dx); Essential hypertension, benign; Other hyperlipidemia; Malignant neoplasm of lower-inner quadrant of left breast in female, estrogen receptor negative (HCC); 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) Start: 10-05-2024 End: 10-05-2024 ambulatory LUNA HEADO Facility:[facility] Start: 09-21-2024 End: 09-21-2024 Patient encounter procedure Freddie Rocha PhD Psychology Comment on above: Psychological factor affecting cancer (HCC) (Primary Dx); 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); Adjustment disorder with anxious mood; Insomnia, unspecified type Start: 09-21-2024 End: 09-21-2024 ambulatory FREDDIE ROCHA Facility:[facility] Start: 08-28-2024 End: 08-28-2024 ambulatory LUNA COPE Facility:[facility] Start: 08-28-2024 End: 08-28-2024 Patient encounter procedure Luna Cope MD Work Phone: [facility] Comment on above: Essential hypertensi on, benign (Primary Dx); Medicare annual wellness visit, subsequent; Encounter for screening examination for other mental health and behavioral disorders; Other hyperlipidemia; History of partial colectomy; History of uterine cancer; Malignant neoplasm of lower-inner quadrant of left breast in female, estrogen receptor negative (HCC); 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); Osteopenia of multiple sites; Screening for depression Start: 08-25-2024 ambulatory PK RAMSEY Facility:[facility] Start: 08-25-2024 End: 08-25-2024 Subsequent hospital visit by physician Screen Mammo [facility] Comment on above: Breast cancer screen ing, high risk patient [Z12.39] Start: 08-06-2024 End: 08-06-2024 ambulatory Glen Iglesias MD Work Phone: Hematology/Oncology Comment on above: When I sweat Start: 07-03-2024 End: 09-02-2024 Follow-up encounter Luna Cope MD Work Phone: [facility] Start: 07-02-2024 End: 07-02-2024 ambulatory LUNA COPE Facility:[facility] Start: 07-02-2024 End: 07-02-2024 Subsequent hospital visit by physician [facility] Work Phone: Radiology Comment on above: Soft tissue mass [M7 9.89] Start: 07-01-2024 End: 07-01-2024 Office outpatient visit 10 minutes Luna Cope MD Work Phone: [facility] Comment on above: Soft tissue mass (Pr imary Dx); History of breast cancer Start: 07-01-2024 End: 07-01-2024 ambulatory Luna Cope MD Work Phone: [facility] Comment on above: Derm Problem Start: 06-23-2024 End: 06-23-2024 ambulatory Audie Hemphill Work Phone: Hematology/Oncology Comment on above: Triple negative pal st carcinoma (HCC); Malignant neoplasm of lower-inner quadrant of left breast in female, estrogen receptor negative (HCC) Start: 06-23-2024 End: 06-23-2024 Patient encounter procedure Audie Hemphill Work Phone: Hematology/Oncology Start: 06-03-2024 End: 06-03-2024 Orders Only Evita Sanchez DO Work Phone: [facility] Comment on above: Breast cancer screen ing, high risk patient (Primary Dx); Abnormal MRI, breast; Encounter for screening mammogram for malignant neoplasm of breast Invasive ductal carc inoma of breast, female, left (HCC) (Primary Dx); 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); At risk for lymphedema Start: 06-01-2024 ambulatory PK RAMSEY Facility:[facility] Start: 06-01-2024 End: 06-01-2024 Subsequent hospital visit by physician Tiff Quintero (I-Stat/1.5t) Work Phone: Radiology Comment on above: Triple negative pal st carcinoma (HCC) [C50.919, Z17.421] Start: 05-29-2024 End: 05-29-2024 Telephone encounter Hannah Castañeda (Pas) Radiology Comment on above: Reminder Call (Appt reminder call, spoke with pt regarding appt time and location) Start: 05-12-2024 End: 05-12-2024 ambulatory BENSON PIERRE Facility:[facility] Start: 05-12-2024 End: 05-12-2024 Follow-up encounter Benson Pierre MD Work Phone: Radiation Oncology Comment on above: Radiotherapy follow- up (Primary Dx); Malignant neoplasm of lower-inner quadrant of left breast in female, estrogen receptor negative (HCC) Refill Request Start: 05-12-2024 End: 05-12-2024 Telemedicine consultation with patient Benson Pierre MD Work Phone: Radiation Oncology Start: 04-27-2024 End: 04-30-2024 Telephone encounter Audie Hemphill Work Phone: Hematology/Oncology Comment on above: Appointment Start: 04-23-2024 ambulatory [facility] Facility:[facility] Start: 04-23-2024 End: 04-23-2024 ambulatory Zack Riveraori Facility:[facility] Start: 04-14-2024 End: 04-16-2024 Patient encounter procedure Benson Pierre MD Work Phone: Radiation Oncology Comment on above: Malignant neoplasm o f lower-inner quadrant of left breast in female, estrogen receptor negative (HCC) (Primary Dx) Start: 04-14-2024 End: 04-16-2024 Radiation Oncology Note Benson Pierre MD Work Phone: Radiation Oncology Comment on above: Completion Note Start: 04-14-2024 End: 04-14-2024 ambulatory Benson Pierre MD Work Phone: Radiation Oncology Comment on above: Patient Education Start: 04-13-2024 End: 04-13-2024 ambulatory [facility] Facility:[facility] Start: 04-10-2024 End: 04-10-2024 ambulatory [facility] Facility:[facility] Start: 04-09-2024 End: 04-09-2024 [facility] Facility:[facility] Start: 04-08-2024 End: 04-08-2024 ambulatory [facility] Facility:[facility] Start: 04-07-2024 End: 04-07-2024 Patient encounter procedure Benson Pierre MD Work Phone: Radiation Oncology Comment on above: Malignant neoplasm o f lower-inner quadrant of left breast in female, estrogen receptor negative (HCC) (Primary Dx) Start: 04-07-2024 End: 04-07-2024 ambulatory [facility] Facility:[facility] Start: 04-06-2024 End: 04-06-2024 [facility] Facility:[facility] Start: 04-03-2024 End: 04-03-2024 ambulatory [facility] Facility:[facility] Start: 04-02-2024 End: 04-02-2024 [facility] Facility:[facility] Start: 03-31-2024 End: 03-31-2024 Patient encounter procedure Benson Pierre MD Work Phone: Radiation Oncology Comment on above: Malignant neoplasm o f lower-inner quadrant of left breast in female, estrogen receptor negative (HCC) (Primary Dx) Start: 03-31-2024 End: 03-31-2024 ambulatory [facility] Facility:[facility] Start: 03-30-2024 End: 03-30-2024 [facility] Facility:[facility] Start: 03-27-2024 End: 03-27-2024 [facility] Facility:[facility] Start: 03-26-2024 End: 03-26-2024 ambulatory [facility] Facility:[facility] Start: 03-24-2024 End: 03-24-2024 Patient encounter procedure Gildardo Neri MD Work Phone: Radiation Oncology Comment on above: Malignant neoplasm o f lower-inner quadrant of left breast in female, estrogen receptor negative (HCC) (Primary Dx) Start: 03-24-2024 End: 03-24-2024 ambulatory Glen Iglesias MD Work Phone: Hematology/Oncology Comment on above: Malignant neoplasm o f lower-inner quadrant of left breast in female, estrogen receptor negative (HCC) (Primary Dx) Start: 03-23-2024 End: 03-23-2024 ambulatory [facility] Facility:[facility] Start: 03-20-2024 End: 03-20-2024 ambulatory [facility] Facility:[facility] Start: 03-19-2024 End: 03-19-2024 ambulatory [facility] Facility:[facility] Start: 03-18-2024 End: 03-18-2024 ambulatory [facility] Facility:[facility] Start: 03-17-2024 End: 03-17-2024 Patient encounter procedure Benson Pierre MD Work Phone: Radiation Oncology Comment on above: Malignant neoplasm o f lower-inner quadrant of left breast in female, estrogen receptor negative (HCC) (Primary Dx) Start: 03-17-2024 End: 03-17-2024 ambulatory [facility] Facility:[facility] Start: 03-17-2024 End: 03-17-2024 [facility] Facility:[facility] Start: 03-16-2024 End: 03-16-2024 ambulatory BENSON PIERRE Facility:[facility] Start: 03-11-2024 End: 03-13-2024 Patient encounter procedure Benson Pierre MD Work Phone: Radiation Oncology Start: 03-11-2024 End: 03-13-2024 Radiation Oncology Note Benson Pierre MD Work Phone: Radiation Oncology Comment on above: Simulation Note Treatment Planning Start: 03-11-2024 End: 03-11-2024 ambulatory [facility] Facility:[facility] Start: 03-11-2024 End: 03-11-2024 Nursing evaluation of patient and report Nurse Gabriela [facility] Work Phone: Radiation Oncology Comment on above: Malignant neoplasm o f lower-inner quadrant of left breast in female, estrogen receptor negative (HCC) (Primary Dx) Start: 03-10-2024 End: 03-16-2024 Orders Only Benson Pierre MD Work Phone: Hematology/Oncology Comment on above: Malignant neoplasm o f lower-inner quadrant of left breast in female, estrogen receptor negative (HCC) (Primary Dx) Start: 03-05-2024 End: 03-05-2024 Telephone encounter Brii Fernández RN Work Phone: Hematology/Oncology Comment on above: Future Appointment Start: 03-04-2024 End: 03-04-2024 ambulatory Benson Pierre MD Work Phone: Radiation Oncology Comment on above: Malignant neoplasm o f lower-inner quadrant of left breast in female, estrogen receptor negative (HCC) (Primary Dx) Start: 03-04-2024 End: 03-04-2024 Telemedicine consultation with patient Benson Pierre MD Work Phone: Radiation Oncology Start: 02-19-2024 End: 02-19-2024 ambulatory LUNA COPE Facility:[facility] Start: 02-19-2024 End: 02-19-2024 Patient encounter procedure Luna Cope MD Work Phone: [facility] Comment on above: Essential hypertensi on, benign (Primary Dx); Other hyperlipidemia; MVP (mitral valve prolapse); Malignant neoplasm of lower-inner quadrant of left breast in female, estrogen receptor negative (HCC); Osteopenia of multiple sites; At risk for lymphedema; History of uterine cancer Start: 02-13-2024 End: 02-13-2024 ambulatory Treatment Rm 2 Henri [facility] Work Phone: Hematology/Oncology Comment on above: Malignant neoplasm o f lower-inner quadrant of left breast in female, estrogen receptor negative (HCC) (Primary Dx) Start: 02-11-2024 End: 02-11-2024 Telephone encounter Glen Iglesias MD Work Phone: Hematology/Oncology Comment on above: Patient Update Start: 02-07-2024 End: 02-07-2024 Patient encounter procedure Glen Iglesias MD Work Phone: Hematology/Oncology Start: 02-07-2024 End: 02-07-2024 ambulatory Glen Iglesias MD Work Phone: Hematology/Oncology Comment on above: Malignant neoplasm o f lower-inner quadrant of left breast in female, estrogen receptor negative (HCC) (Primary Dx) Start: 01-31-2024 End: 02-03-2024 Telephone encounter Brii Fernández RN Work Phone: Hematology/Oncology Comment on above: Care Coordination (S ymptoms) Start: 01-21-2024 End: 01-21-2024 ambulatory Treatment Rm 10 Henri [facility] Work Phone: Hematology/Oncology Comment on above: Malignant neoplasm o f lower-inner quadrant of left breast in female, estrogen receptor negative (HCC) (Primary Dx) Start: 01-17-2024 End: 01-17-2024 Patient encounter procedure Audie Hemphill Work Phone: Hematology/Oncology Start: 01-17-2024 End: 01-17-2024 ambulatory Audie Hemphill Work Phone: Hematology/Oncology Comment on above: Triple negative pal st carcinoma (HCC) (Primary Dx) Start: 01-13-2024 End: 01-13-2024 Telephone encounter Brii Fernández RN Work Phone: Hematology/Oncology Comment on above: Care Coordination (H and redness) Start: 01-07-2024 End: 01-07-2024 Telephone encounter Brii Fernández RN Work Phone: Hematology/Oncology Comment on above: Care Coordination (S ymptoms) Start: 01-05-2024 End: 01-05-2024 ambulatory LUNA PRISCA Facility:[facility] Start: 01-05-2024 End: 01-05-2024 Patient encounter procedure Nurse Exp Care [facility] Comment on above: Fever, unspecified f ever cause (Primary Dx) Start: 01-03-2024 End: 01-03-2024 Telephone encounter Brii Fernández RN Work Phone: Hematology/Oncology Comment on above: Experimental Physicist - E D Follow Up Start: 01-03-2024 End: 01-03-2024 Emergency department patient visit Luna Cope Facility:[facility] Start: 12-31-2023 End: 12-31-2023 ambulatory Treatment Rm 10 Henri [facility] Work Phone: Hematology/Oncology Comment on above: Malignant neoplasm o f lower-inner quadrant of left breast in female, estrogen receptor negative (HCC) (Primary Dx) Start: 12-30-2023 End: 12-31-2023 Telephone encounter Dimitri Moran DO Work Phone: Hematology/Oncology Comment on above: Appointment Start: 12-30-2023 End: 12-30-2023 ambulatory Roberto Ulloa PT [facility] Physical Therapy Comment on above: At risk for lymphede ma (Primary Dx); 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) Start: 12-27-2023 End: 12-27-2023 Patient encounter procedure Audie Hemphill Work Phone: Hematology/Oncology Start: 12-27-2023 End: 12-27-2023 ambulatory Audie Hemphill Work Phone: Hematology/Oncology Comment on above: Triple negative pal st carcinoma (HCC) (Primary Dx) Start: 12-18-2023 End: 12-20-2023 ambulatory Luna Cope MD Work Phone: [facility] Comment on above: My headache medicati on and chemotherapy Start: 12-18-2023 End: 12-18-2023 Telephone encounter Brii Fernández RN Work Phone: Hematology/Oncology Comment on above: Care Coordination (T oxicity Check) Start: 12-12-2023 End: 12-12-2023 Telephone encounter Brii Fernández RN Work Phone: Hematology/Oncology Comment on above: Care Coordination (C YCLE 1/DAY 1 POST TREATMENT CALL ) Start: 12-10-2023 End: 12-10-2023 ambulatory Treatment Rm 8 [facility] Work Phone: Hematology/Oncology Comment on above: Malignant neoplasm o f lower-inner quadrant of left breast in female, estrogen receptor negative (HCC) (Primary Dx) Start: 12-05-2023 End: 12-05-2023 Telephone encounter Financial Navigator Henri Work Phone: Hematology/Oncology Comment on above: Benefits Investigati on Start: 12-05-2023 End: 12-05-2023 installment loan collector [facility] Work Phone: Hematology/Oncology Comment on above: Encounter for educat ion (Primary Dx); 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) Start: 12-03-2023 End: 12-03-2023 ambulatory Harleen Thomas RN Work Phone: Psychologist Developmental Management Comment on above: Community Monitoring Outreach (CDM Telephonic Outreach - Routine ) Start: 11-29-2023 End: 11-29-2023 ambulatory BENSON PIERRE Facility:[facility] Start: 11-29-2023 End: 11-29-2023 Patient encounter procedure Benson Pierre MD Work Phone: Radiation Oncology Comment on above: Malignant neoplasm o f lower-inner quadrant of left breast in female, estrogen receptor negative (HCC) (Primary Dx) Start: 11-27-2023 End: 11-28-2023 Orders Only Evita Sanchez DO Work Phone: [facility] Comment on above: Triple negative pal st carcinoma (HCC) (Primary Dx) Triple negative pal st carcinoma (HCC) (Primary Dx); Abnormal finding on breast imaging Malignant neoplasm o f lower-inner quadrant of left breast in female, estrogen receptor negative (HCC) (Primary Dx); 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); Abnormal MRI, breast Care Coordination (I ntroduction) Malignant neoplasm o f lower-inner quadrant of left breast in female, estrogen receptor negative (HCC) (Primary Dx) AVS 11/27/23, CHEMO S TART Start: 11-13-2023 Telephone encounter Marian Mohamud RN Work Phone: General Surgery Comment on above: Post Op Follow Up Start: 11-12-2023 Admission to [facility] Marian Mohamud RN General Surgery Comment on above: Education Of Patient /family S/P lumpectomy, left breast (Primary Dx) Start: 11-12-2023 End: 11-12-2023 ambulatory Marian Mohamud RN General Surgery Start: 11-12-2023 End: 11-12-2023 Subsequent hospital visit by physician Evita Sanchez DO Work Phone: [facility] Comment on above: Triple negative pal st carcinoma (HCC) [C50.919, Z17.1] Start: 11-11-2023 End: 11-11-2023 ambulatory EVITA SANCHEZ Facility:[facility] Start: 11-11-2023 End: 11-11-2023 Patient encounter procedure Evita Sanchez DO Work Phone: [facility] Comment on above: Malignant neoplasm o f lower-inner quadrant of left breast in female, estrogen receptor negative (HCC) (Primary Dx); 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) Start: 11-08-2023 ambulatory SERINE [facility] Facility :[facility] Start: 11-08-2023 End: 11-08-2023 Subsequent hospital visit by physician Mri Main A10 (Large Bore/1.5t) Work Phone: MRI A10 Comment on above: Abnormal finding on breast imaging [R92.8] Start: 11-07-2023 ambulatory SERINE [facility] Facility :[facility] Start: 11-07-2023 End: 11-07-2023 Subsequent hospital visit by physician Mri Main A10 (Large Bore/1.5t) Work Phone: MRI A10 Comment on above: Abnormal finding on breast imaging [R92.8] Start: 11-04-2023 End: 11-04-2023 ambulatory Crystal Connolly LPN Work Phone: [facility] Comment on above: Patient Education (L EFT norma partial mastectomy with SN bx/) post op exercises Start: 11-04-2023 E-mail encounter fro m caregiver Crystal Connolly LPN Work Phone: [facility] Start: 10-30-2023 ambulatory Crystal Fuentes RN Ambulat ory Care Management Comment on above: Community Monitoring Outreach (CDM Telephonic Outreach) Start: 10-24-2023 End: 10-24-2023 ambulatory Glen Iglesias MD Work Phone: Hematology/Oncology Comment on above: Malignant neoplasm o f lower-inner quadrant of left breast in female, estrogen receptor negative (HCC); 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) Start: 10-24-2023 End: 10-24-2023 Patient encounter procedure Glen Iglesias MD Work Phone: Hematology/Oncology Comment on above: Malignant neoplasm o f lower-inner quadrant of left breast in female, estrogen receptor negative (HCC) (Primary Dx) Start: 10-23-2023 End: 10-23-2023 ambulatory DON GRIJALVA Facility:[facility] Start: 10-23-2023 Encounter for other preprocedural examination BENSON PIERRE [facility] Start: 10-23-2023 End: 10-23-2023 ambulatory PK RAMSEY Facility:[facility] Start: 10-23-2023 End: 10-23-2023 Subsequent hospital visit by physician Procedure Mammo Main Mammography Start: 10-23-2023 End: 10-23-2023 ambulatory LUNA COPE Facility:[facility] Start: 10-23-2023 End: 10-23-2023 Admission to establishment Pacc Main 9 Work Phone: Pre Anesthesia Start: 10-23-2023 End: 10-23-2023 Anesthesia consultation Pac Main 9 Work Phone: Pre Anesthesia Comment on above: Pre-op evaluation (P rimary Dx); Difficult intravenous access; PONV (postoperative nausea and vomiting); Stage 3a chronic kidney disease (HCC); History of uterine cancer; History of partial colectomy; MVP (mitral valve prolapse); Essential hypertension, benign; Other hyperlipidemia Start: 10-23-2023 End: 10-23-2023 Preprocedural examination done Pac Main 9 Work Phone: [facility] Work Phone: Start: 10-22-2023 Telephone encounter Crystal arenas LPN Work Phone: [facility] Comment on above: breast localization request Start: 10-21-2023 End: 10-22-2023 Orders Only Serine Livan GRAVES Work Phone: Mammography Comment on above: Abnormal finding on breast imaging (Primary Dx) Malignant neoplasm o f lower-inner quadrant of left breast in female, estrogen receptor negative (HCC) (Primary Dx); Abnormal MRI, breast Start: 10-18-2023 End: 10-18-2023 ambulatory EVITA A DANIEL Facility:[facility] Start: 10-18-2023 End: 10-18-2023 Subsequent hospital visit by physician [facility] (I-Stat/1.5t) MRI [facility] Comment on above: Malignant neoplasm o f lower-inner quadrant of left breast in female, estrogen receptor negative (HCC) [C50.312, Z17.1] Start: 10-14-2023 ambulatory Crystal claudio LPN Work Phone: [facility] Comment on above: Phone call with Dr.V schaefer Start: 10-14-2023 E-mail encounter fro m caregiver Crystal Connolly LPN Work Phone: [facility] Start: 10-14-2023 Telephone encounter Benson Quiroz MD Work Phone: Radiation Oncology Start: 10-11-2023 End: 10-11-2023 Patient encounter procedure Evita Sanchez DO Work Phone: General Surgery Comment on above: Malignant neoplasm o f lower-inner quadrant of left breast in female, estrogen receptor negative (HCC) (Primary Dx); 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); At risk for lymphedema Start: 10-11-2023 End: 10-11-2023 ambulatory EVITA A DANIEL Facility:[facility] Start: 10-09-2023 End: 10-09-2023 Patient encounter procedure Layla Norris MD Work Phone: General Surgery Comment on above: Malignant neoplasm o f lower-inner quadrant of left breast in female, estrogen receptor negative (HCC) (Primary Dx) Start: 10-09-2023 End: 10-09-2023 ambulatory Crystal Fuentes RN Psychologist Developmental Management Comment on above: Community Monitoring Outreach (CDM Telephonic Outreach) Malignant neoplasm o f lower-inner quadrant of left breast in female, estrogen receptor negative (HCC) (Primary Dx) Start: 10-08-2023 Telephone encounter Layla bhakta MD Work Phone: General Surgery Comment on above: Results Start: 09-25-2023 End: 09-25-2023 Subsequent hospital visit by physician Screen Mammo [facility] Comment on above: Abnormal mammogram [ R92.8] Start: 09-25-2023 End: 09-25-2023 Patient encounter procedure Layla Norris MD Work Phone: General Surgery Comment on above: Abnormal mammogram ( Primary Dx) Start: 09-23-2023 End: 09-23-2023 Patient encounter procedure Layla Norris MD Work Phone: General Surgery Comment on above: Abnormal mammogram ( Primary Dx) Start: 09-16-2023 ambulatory Crystal Fuentes RN Ambulat ory Care Management Comment on above: Community Monitoring Outreach (CDM Telephonic Outreach) Start: 09-06-2023 Refill Luna Cope MD Work Phone: [facility] Comment on above: Refill Request Start: 09-03-2023 Telephone encounter Danielle sheridan DIESEL ENGINE ENGINEER.MAORI PHYSIOTHERAPIST Work Phone: [facility] Comment on above: Results Start: 09-02-2023 End: 09-02-2023 Office outpatient visit 25 minutes Shant Morfin DIESEL ENGINE ENGINEER.MAORI PHYSIOTHERAPIST Work Phone: [facility] Comment on above: Urinary frequency (P rimary Dx) Start: 08-28-2023 End: 08-28-2023 Patient encounter procedure Luna Cope MD Work Phone: [facility] Comment on above: Epistaxis (Primary D x); Chronic midline low back pain without sciatica Start: 08-27-2023 End: 08-27-2023 Subsequent hospital visit by physician Us [facility] Work Phone: Radiology Comment on above: Inconclusive mammogr am [R92.2] Start: 08-23-2023 Documentation procedure Mammog aakash Coordinator [facility] Department Start: 08-23-2023 Letter encounter Mammography Coordinator [facility] Start: 08-23-2023 Telephone encounter Luna Cope MD Work Phone: [facility] Comment on above: Results/ order's nee ded Start: 08-22-2023 End: 08-22-2023 Subsequent hospital visit by physician Bone Density [facility] Work Phone: Radiology Comment on above: Osteopenia of multip le sites [M85.89] Encounter for screen ing mammogram for malignant neoplasm of breast [Z12.31] Start: 08-21-2023 ambulatory Crystal Fuentes RN Ambulat ory Care Management Comment on above: Community Monitoring Outreach (CDM Telephonic Outreach) Start: 08-20-2023 ambulatory Crystal Fuentes RN Ambulat ory Care Management Comment on above: Community Monitoring Outreach (CDM Telephonic Outreach) Start: 08-14-2023 End: 08-14-2023 Patient encounter procedure Luna Cope MD Work Phone: [facility] Comment on above: Essential hypertensi on, benign (Primary Dx); Other hyperlipidemia; Insomnia, unspecified type; History of uterine cancer; Osteopenia of multiple sites; Stage 3a chronic kidney disease (HCC); Disorder of bone; Encounter for screening mammogram for malignant neoplasm of breast; Need for vaccination Start: 07-23-2023 ambulatory Crystal Fuentes RN Ambulat ory Care Management Comment on above: Community Monitoring Outreach (CDM Telephonic Outreach) Start: 07-11-2023 End: 07-11-2023 Subsequent hospital visit by physician Layla Norris MD Work Phone: Ambulatory Surgery Comment on above: LLQ pain [R10.32] Start: 07-04-2023 ambulatory Crystal Fuentes RN Ambulat ory Care Management Comment on above: Community Monitoring Outreach (CDM Telephonic Outreach) Start: 06-25-2023 End: 06-25-2023 Patient encounter procedure Layla Norris MD Work Phone: General Surgery Comment on above: LLQ pain; History of partial colectomy Start: 06-10-2023 ambulatory Crystal Fuentes RN Ambulat ory Care Management Comment on above: Community Monitoring Outreach (CDM Telephonic Outreach) Start: 06-07-2023 ambulatory Crystal Fuentes RN Ambulat ory Care Management Comment on above: Community Monitoring Outreach (CDM Telephonic Outreach) Start: 05-23-2023 Telephone encounter Luna Cope MD Work Phone: [facility] Comment on above: Appointment Start: 05-23-2023 End: 05-23-2023 ambulatory Luna Cope MD Work Phone: Family Medicine [facility] Comment on above: LLQ pain (Primary Dx ); History of partial colectomy; Renal insufficiency; Polycythemia Start: 05-23-2023 End: 05-23-2023 Telemedicine consultation with patient Luna Cope MD Work Phone: [facility] Start: 05-21-2023 End: 05-21-2023 Subsequent hospital visit by physician [facility] (I-Stat) Work Phone: Cat Scan Comment on above: LLQ pain [R10.32] Start: 05-21-2023 Telephone encounter Luna Cope MD Work Phone: [facility] Comment on above: Results Start: 05-21-2023 End: 05-21-2023 Patient encounter procedure Luna Cope MD Work Phone: [facility] Comment on above: LLQ pain (Primary Dx ); Left lower quadrant abdominal pain Start: 05-15-2023 ambulatory Crystal Fuentes RN Ambulat ory Care Management Comment on above: Community Monitoring Outreach (CDM Telephonic Outreach) Start: 05-06-2023 Telephone encounter Mp rider MD Work Phone: Orthopaedics Comment on above: Appointment (Cancel surgery) Start: 03-18-2023 End: 03-18-2023 Patient encounter procedure Mp Valadez MD Work Phone: Orthopaedics Comment on above: Trigger middle finge r of right hand (Primary Dx); Pain of right hand Start: 03-05-2023 ambulatory Crystal Fuentes RN Ambulat ory Care Management Comment on above: Community Monitoring Outreach (CDM Telephonic Outreach) Start: 02-13-2023 End: 02-13-2023 Patient encounter procedure Luna Cope MD Work Phone: [facility] Comment on above: Essential hypertensi on, benign (Primary Dx); Other hyperlipidemia; MVP (mitral valve prolapse); Pain of right hand; Need for vaccination Start: 02-12-2023 ambulatory Crystal Fuentes RN Ambulat ory Care Management Comment on above: Community Monitoring Outreach (CDM Telephonic Outreach) Start: 01-22-2023 ambulatory Crystal Fuentes RN Ambulat ory Care Management Comment on above: Community Monitoring Outreach (CDM Telephonic Outreach) Start: 01-01-2023 ambulatory Crystal Fuentes RN Ambulat ory Care Management Comment on above: Community Monitoring Outreach (CDM Telephonic Outreach) Start: 11-23-2022 Refill Luna Cope MD Work Phone: [facility] Start: 10-13-2022 End: 10-13-2022 Patient encounter procedure Thomas ARREAGA Work Phone: [facility] Comment on above: Insect bite of back, unspecified laterality, initial encounter (Primary Dx); Rash Start: 10-04-2022 ambulatory Crystal Fuentes RN Ambulat ory Care Management Comment on above: Community Monitoring Outreach (CDM Telephonic Outreach) Start: 09-03-2022 End: 09-03-2022 Subsequent hospital visit by physician Xr [facility] Work Phone: Radiology Comment on above: Pain of right hand [ M79.641] Start: 09-03-2022 End: 09-03-2022 Patient encounter procedure Luna Cope MD Work Phone: [facility] Comment on above: Pain of right hand ( Primary Dx) Start: 08-17-2022 Telephone encounter M Ignacio Ambrose PA-C Work Phone: [facility] Comment on above: mamm results Start: 08-15-2022 ambulatory Crystal Fuentes RN Ambulat ory Care Management Comment on above: Community Monitoring Outreach (CDM Telephonic Outreach) Start: 08-15-2022 End: 08-15-2022 Subsequent hospital visit by physician Screen Mammo [facility] Comment on above: Encounter for screen ing mammogram for malignant neoplasm of breast [Z12.31] Start: 06-21-2022 ambulatory Crystal Fuentes RN Ambulat ory Care Management Comment on above: Community Monitoring Outreach (CDM Telephonic Outreach) Start: 05-24-2022 ambulatory Crystal Fuentes RN Ambulat ory Care Management Comment on above: Community Monitoring Outreach (CDM Telephonic Outreach) Start: 05-04-2022 Refill Luna Cope MD Work Phone: [facility] Comment on above: Refill Request Start: 04-26-2022 ambulatory Wendie Solo RN Work Phone: Psychologist Developmental Management Comment on above: cdm (Patient questio n) Start: 04-25-2022 ambulatory Amanda Knight RN NURSE EVENT TECHNICIAN Comment on above: Information Start: 04-20-2022 ambulatory Wendie Solo RN Work Phone: Psychologist Developmental Management Comment on above: cdm (Enrollment) Start: 03-05-2022 End: 03-05-2022 ambulatory [facility] Work Phone: Start: 03-05-2022 End: 03-05-2022 Patient encounter procedure [facility] Start: 02-05-2022 End: 02-05-2022 Patient encounter procedure Luna Cope MD Work Phone: [facility] Comment on above: Essential hypertensi on, benign (Primary Dx); Other hyperlipidemia; Anxiety with depression Start: 10-25-2021 Refill Luna Cope MD Work Phone: [facility] Comment on above: Refill Request Start: 10-06-2021 End: 10-06-[address] Luna Cope Work Phone: [facility] Start: 09-11-2021 End: 09-11-[address] Luna Cope Work Phone: [facility] Start: 08-31-2021 Telephone encounter Luna Cope MD Work Phone: [facility] Comment on above: Blood Pressure Check Start: 08-11-2021 Documentation procedure Mammog aakash Coordinator [facility] Start: 08-11-2021 Letter encounter Mammography Coordinator [facility] Start: 08-11-2021 End: 08-11-2021 Subsequent hospital visit by physician Screen Mammo [facility] Comment on above: Screening breast exa mination [Z12.39] Start: 07-31-2021 End: 07-31-2021 Patient encounter procedure Luna Cope MD Work Phone: [facility] Comment on above: Other hyperlipidemia (Primary Dx); Essential hypertension, benign; History of uterine cancer; Diverticulosis Start: 07-21-2021 End: 07-21-2021 Patient encounter procedure Kenzie Clark APRN.CNP Work Phone: OB/Gynecology Comment on above: Encounter for gyneco logic examination for high-risk patient covered by Medicare (Primary Dx); Vaginal discharge Start: 07-04-2021 ambulatory Luna Cope MD Work Phone: [facility] Comment on above: Mammogram Procedures Date Procedure Procedure Detail Performing Clinician Start: 10-08-2024 Lipid panel [facility] Provid er Start: 10-08-2024 Lipid 1995 panel - S kevin or Plasma Luna Cope MD Work Phone: Start: 08-28-2024 Adult depression scr eening assessment Luna Cope MD Work Phone: Start: 07-02-2024 Us abdominal real ti me w/image limited Luna Cope MD Work Phone: Start: 03-17-2024 Lipid 1996 panel - S kevin or Plasma Benson Pierre MD Work Phone: Start: 11-08-2023 Digital breast tomosynthesis unilateral Yolette Licona MD Work Phone: Start: 11-08-2023 Bx breast w/device 1 st lesion magnetic res guid Yolette Licona MD Work Phone: Start: 11-07-2023 Bx breast w/device 1 st lesion magnetic res guid Yolette Licona MD Work Phone: Start: 11-07-2023 Diagnostic mammograp hy computer-aided detcj uni Crissy Hernandez MD Work Phone: Start: 10-23-2023 Diagnostic mammograp hy computer-aided detcj uni Pk Ramsey PA-C Work Phone: Start: 10-23-2023 Perq breast loc lucia ce placemt 1st lesio us imag Pk Bedollan PA-C Work Phone: Start: 10-18-2023 Mri breast without&w ith contrast w/cad bilateral Evita A Daniel DO Work Phone: Start: 09-25-2023 US BREAST BIOPSY LEF T (POC) SURG USE ONLY Layla Norris MD Work Phone: Start: 09-25-2023 Diagnostic mammograp hy computer-aided detcj uni Layla Norris MD Work Phone: Start: 09-02-2023 Urnls dip stick/tabl et rgnt auto w/o microscopy Shant Morfin APRN.MAORI PHYSIOTHERAPIST Work Phone: Start: 08-27-2023 Us breast uni real t miles with image limited Luna Cope MD Work Phone: Start: 08-27-2023 Digital breast tomosynthesis unilateral Luna Cope MD Work Phone: Start: 08-14-2023 [email or web address] COVI D-19 VACCINE ( SEASON) AGE 12+ YR Luna Cope MD Work Phone: Start: 08-14-2023 Adult depression scr eening assessment Pac 9 Work Phone: Start: 07-11-2023 Colonoscopy flx dx w /collj spec when pfrmd Layla Norris MD Work Phone: Start: 07-11-2023 Colonoscopy Layla gibson MD Work Phone: Start: 05-21-2023 Ct abdomen & pelvis w/contrast material Luna Cope MD Work Phone: Start: 05-21-2023 Urnls dip stick/tabl et rgnt auto w/o microscopy Luna Cope MD Work Phone: Start: 02-13-2023 [employer] COVI D-19 VACCINE ( SEASON) AGE 12+ YR Luna Cope MD Work Phone: Start: 02-01-2023 Lipid 1996 panel - S kevin or Plasma Screen Wstr Start: 09-03-2022 Radex hand minimum 3 views Luna Cope MD Work Phone: Start: 08-15-2022 End: 08-15-2022 Mammography Luna Cope MD Work Phone: Start: 01-23-2022 Lipid 1996 panel - S kevin or Plasma Crystal Fuentes RN Start: 08-11-2021 ZAC SCREENING W QUE Cope MD Work Phone: Start: 08-11-2021 Mammography Screen Wst r Start: 07-31-2021 Adult depression scr eening assessment Luna Cope MD Work Phone: Start: 03-16-2021 Colonoscopy Luna Parker MD Work Phone: Start: 08-10-2020 Mammography Luna Parker MD Work Phone: Start: 05-21-2017 Adult depression scr eening assessment Luna Cope MD Work Phone: Start: 12-03-2016 End: 03-27-2017 *Hepatic Function Panel Dimitri Da Silva MD Start: 12-03-2016 End: 03-27-2017 Lipid panel [AGGREGATE] Dimitri Da Silva MD Start: 06-06-2016 End: 06-06-2016 Follow Up Appt 1 year Dimitri De La Torre Start: 06-06-2016 End: 06-06-2016 PFM Dimitri Da Silva MD Start: 05-31-2016 End: 05-31-2016 *Hepatic Function Panel Dimitri Da Silva MD Start: 05-31-2016 End: 05-31-2016 Lipid panel [AGGREGATE] Dimitri Da Silva MD Start: 12-19-2015 End: 12-19-2015 Follow Up Appt 9 months Dimitri Da Silva MD Start: 12-19-2015 End: 12-19-2015 PFM Dimitri Da Silva MD Start: 12-02-2015 End: 12-13-2015 *Hepatic Function Panel Dimitri Da Silva MD Start: 12-02-2015 End: 12-13-2015 Lipid panel [AGGREGATE] Dimitri Da Silva MD Start: 05-27-2015 End: 06-01-2015 *Hepatic Function Panel Dimitri Da Silva MD Start: 05-27-2015 End: 06-01-2015 Lipid panel [AGGREGATE] Dimitri Da Silva MD Start: 12-01-2014 End: 06-01-2015 *Hepatic Function Panel Dimitri Da Silva MD Start: 12-01-2014 End: 12-02-2014 Documentation of current medications Dimitri Da Silva MD Start: 12-01-2014 End: 06-01-2015 Lipid panel [AGGREGATE] Dimitri Da Silva MD Start: 11-08-2014 End: 11-24-2014 *Hepatic Function Panel Dimitri Da Silva MD Start: 11-08-2014 End: 11-24-2014 Lipid panel [AGGREGATE] Dimitri Da Silva MD Start: 05-17-2014 End: 05-18-2014 Documentation of current medications Tahira Ortiz PA-C Work Phone: Start: 05-17-2014 End: 05-17-2014 Follow Up Appt 6 months Tahira shin PA-C Work Phone: Start: 05-17-2014 End: 05-17-2014 PFM Tahira Ortiz PA-C Work Phone: Start: 05-02-2014 End: 05-11-2014 *Hepatic Function Panel Dimitri Da Silva MD Start: 05-02-2014 End: 05-11-2014 Lipid panel [AGGREGATE] Dimitri Da Silva MD Start: 11-16-2013 End: 11-16-2013 Follow Up Appt 6 months Dimitri Da Silva MD Start: 11-16-2013 End: 11-16-2013 MMM Dimitri Da Silva MD Start: 10-30-2013 End: 11-11-2013 *Hepatic Function Panel Dimitri Da Silva MD Start: 10-30-2013 End: 11-11-2013 Lipid panel [AGGREGATE] Dimitri Da Silva MD Start: 05-02-2013 End: 05-19-2013 *Hepatic Function Panel Tahira shin PA-C Work Phone: Start: 05-02-2013 End: 05-19-2013 Lipid panel [AGGREGATE] Tahira shin PA-C Work Phone: Start: 11-17-2012 End: 11-17-2012 Follow Up Appt 1 year Dimitri De La Torre Start: 11-17-2012 End: 11-17-2012 PFM Dimitri Da Silva MD Start: 09-29-2012 End: 10-21-2012 *Hepatic Function Panel Dimitri Da Silva MD Start: 09-29-2012 End: 10-21-2012 Lipid panel [AGGREGATE] Dimitri Da Silva MD Start: 04-14-2012 End: 04-21-2012 *Hepatic Function Panel Dimitri Da Silva MD Start: 04-14-2012 End: 04-21-2012 Lipid panel [AGGREGATE] Dimitri Da Silva MD Start: 11-19-2011 End: 02-29-2012 *Hepatic Function Panel Dimitri Da Silva MD Start: 11-19-2011 End: 05-17-2014 Follow Up Appt 1 year Dimitri De La Torre Start: 11-19-2011 End: 02-29-2012 Lipid panel [AGGREGATE] Dimitri Da Silva MD Plan of Treatment Date Care Activity Detail Author Start: 07-10-2033 Screening for malign ant neoplasm of colon [facility] Start: 03-16-2031 Colonoscopy COLONOSCOPY [facility] Start: 03-16-2031 COLORECTAL CANCER SCREENING COLORECTAL CANCER SCREENING [facility] Start: 03-16-2031 Screening for malign ant neoplasm of colon [facility] Start: 10-08-2029 Lipid panel Lipid Screening [facility] Start: 03-17-2029 Lipid panel Lipid Screening [facility] Start: 03-02-2029 Urine microalbumin profile [facility] Start: 02-02-2028 Lipid 1996 panel - Serum or Plasma Lipid Screening [facility] Start: 02-02-2028 Lipid panel Lipid Screening [facility] Start: 03-24-2027 Diabetes Screening Diabetes Screenin g [facility] Start: 03-17-2027 Diabetes Screening Diabetes Screenin g [facility] Start: 02-12-2027 Diabetes Screening Diabetes Screenin g [facility] Start: 02-06-2027 Diabetes Screening Diabetes Screenin g [facility] Start: 01-23-2027 Lipid 1996 panel - Serum or Plasma Lipid Screening [facility] Start: 01-23-2027 LIPID SCREEN LIPID SCREEN [facility] Start: 01-16-2027 Diabetes Screening Diabetes Screenin g [facility] Start: 12-30-2026 Diabetes Screening Diabetes Screenin g [facility] Start: 12-26-2026 Diabetes Screening Diabetes Screenin g [facility] Start: 12-09-2026 Diabetes Screening Diabetes Screenin g [facility] Start: 10-22-2026 Diabetes Screening Diabetes Screenin g [facility] Start: 06-11-2026 Diabetes Screening Diabetes Screenin g [facility] Start: 05-21-2026 Diabetes Screening Diabetes Screenin g [facility] Start: 02-01-2026 Diabetes Screening Diabetes Screenin g [facility] Start: 01-25-2026 LIPID SCREEN LIPID SCREEN [facility] Start: 10-05-2025 Annual PCP Team Crown Attacher pavel Disease Visit Annual PCP Team Chronic Disease Visit [facility] Start: 08-28-2025 Annual PCP Team Crown Attacher pavel Disease Visit Annual PCP Team Chronic Disease Visit [facility] Start: 08-28-2025 Anxiety Screening Anxiety Screening [facility] Start: 08-28-2025 BP Controlled (<130/80) BP Controlle d (<130/80) [facility] Start: 08-28-2025 Covid-19 Vaccine (8 - Moderna risk season) Covid-19 Vaccine (8 - Moderna risk ) [facility] Comment on above: Postponed from 06/18 (Declined at this time) Start: 08-28-2025 Depression Screening Depression Scre ening [facility] Start: 08-28-2025 Medicare Annual Wellness Visit Medicare Annual Wellness Visit [facility] Start: 08-25-2025 Screening for malign ant neoplasm of breast Mammogram Screening [facility] Start: 07-01-2025 Annual PCP Team Crown Attacher pavel Disease Visit Annual PCP Team Chronic Disease Visit [facility] Start: 07-01-2025 BP Controlled (<130/80) BP Controlle d (<130/80) [facility] Start: 04-14-2025 BP Controlled (<130/80) BP Controlle d (<130/80) [facility] Start: 04-07-2025 BP Controlled (<130/80) BP Controlle d (<130/80) [facility] Start: 03-24-2025 BP Controlled (<130/80) BP Controlle d (<130/80) [facility] Start: 03-17-2025 BP Controlled (<130/80) BP Controlle d (<130/80) [facility] Start: 03-05-2025 End: 03-05-2025 Patient encounter procedure 03/05/2025 10:20 AM EST Office Visit [facility] [address] [place] [address] Luna Cope MD [address] [place] [address] 6 mo follow up [facility] Comment on above: 6 mo follow up Start: 02-28-2025 End: 05-30-2025 25-hydroxyvitamin D3 [Mass/volume] in Serum or Plasma VITAMIN D 25 HYDROXY Lab Routine Osteopenia of multiple sites Expected: 02/28/2025, Expires: 05/30/2025 [facility] Comment on above: Expected: 02/28/2025 , Expires: 05/30/2025 Start: 02-28-2025 End: 05-30-2025 CBC W Auto Differential panel - Blood COMPLETE BLOOD COUNT AND DIFFERENTIAL Lab Routine Essential hypertension, benign Expected: 02/28/2025, Expires: 05/30/2025 [facility] Work Phone: Comment on above: Expected: 02/28/2025 , Expires: 05/30/2025 Start: 02-28-2025 End: 05-30-2025 Comprehensive metabolic 2000 panel - Serum or Plasma COMPREHENSIVE METABOLIC PANEL Lab Routine Essential hypertension, benign Expected: 02/28/2025, Expires: 05/30/2025 [facility] Comment on above: Expected: 02/28/2025 , Expires: 05/30/2025 Start: 02-28-2025 End: 05-30-2025 Lipid 1996 panel - Serum or Plasma LIPID PANEL, FASTING Lab Routine Essential hypertension, benign Expected: 02/28/2025, Expires: 05/30/2025 [facility] Comment on above: Expected: 02/28/2025 , Expires: 05/30/2025 Start: 02-18-2025 Annual PCP Team Crown Attacher pavel Disease Visit Annual PCP Team Chronic Disease Visit [facility] Start: 02-18-2025 BP Controlled (<130/80) BP Controlle d (<130/80) [facility] Start: 02-18-2025 RSV Vaccine (1 - Ris k 60-74 years 1-dose series) RSV Vaccine (1 - Risk 60-74 years 1-dose series) [facility] Comment on above: Postponed from 01/14 (Declined at this time) Start: 02-12-2025 Creatinine measurement Serum Creatin ine [facility] Start: 02-06-2025 Creatinine measurement Serum Creatin ine [facility] Start: 01-23-2025 DIABETES SCREEN [facility] Start: 01-23-2025 Diabetes Screening Diabetes Screenin g [facility] Start: 01-16-2025 BP Controlled (<130/80) BP Controlle d (<130/80) [facility] Start: 01-16-2025 Creatinine measurement Serum Creatin ine [facility] Start: 12-30-2024 Creatinine measurement Serum Creatin ine [facility] Start: 12-29-2024 BP Controlled (<130/80) BP Controlle d (<130/80) [facility] Start: 12-26-2024 BP Controlled (<130/80) BP Controlle d (<130/80) [facility] Start: 12-26-2024 Creatinine measurement Serum Creatin ine [facility] Start: 12-15-2024 End: 12-15-2024 ambulatory Hematology/Oncology Comment on above: OV Start: 12-14-2024 End: 12-14-2024 Patient encounter procedure 12/14/2024 12:30 PM EDT Office Visit Psychology [address] [place] [address] Freddie Rocha, PhD [address] [place] [address] Follow Up Psychology Comment on above: Follow Up Start: 12-09-2024 Creatinine measurement Serum Creatin ine [facility] Start: 12-09-2024 End: 12-09-2024 Patient encounter procedure 12/09/2024 10:15 AM EDT Office Visit [facility] [address] [place] [address] Pk Ramsey PA-C [address] [place] [address] 6 month follow up [facility] Comment on above: 6 month follow up Start: 12-04-2024 End: 12-04-2024 Patient encounter procedure 12/04/2024 10:00 AM EDT Appointment Radiology [address] [place] [address] MRI breast Radiology Comment on above: MRI breast Start: 11-30-2024 Influenza vaccination Influenza Vacc ine (#1) [facility] Start: 11-28-2024 BP Controlled (<130/80) BP Controlle d (<130/80) [facility] Start: 11-26-2024 BP Controlled (<130/80) BP Controlle d (<130/80) [facility] Start: 11-13-2024 End: 11-13-2024 Patient encounter procedure 11/13/2024 12:30 PM EDT Office Visit Psychology [address] [place] [address] Freddie Rocha, PhD [address] [place] [address] FOllow up Psychology Comment on above: FOllow up Start: 10-23-2024 BP Controlled (<130/80) BP Controlle d (<130/80) [facility] Start: 10-22-2024 BP Controlled (<130/80) BP Controlle d (<130/80) [facility] Start: 10-22-2024 Complete blood count Hemoglobin/Henri tocrit [facility] Start: 10-22-2024 Creatinine measurement Serum Creatin ine [facility] Start: 10-08-2024 Evaluation of diagnostic study results [facility] Start: 09-22-2024 BP Controlled (<130/80) BP Controlle d (<130/80) [facility] Start: 09-21-2024 End: 09-21-2024 Patient encounter procedure 09/21/2024 10:30 AM EDT Office Visit Psychology [address] [place] [address] Freddie Rocha, PhD [address] [place] [address] 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) [C50.919, Z17.421] Psychology Comment on above: Triple negative pal st carcinoma (HCC) [C50.919, Z17.421] Start: 08-28-2024 End: 08-28-2024 Patient encounter procedure 08/28/2024 10:00 AM EDT Office Visit Family Medicine Tre [address] [place] [address] Luna Cope MD [address] [place] [address] Medicare wellness [facility] Comment on above: Medicare wellness Start: 08-27-2024 Annual PCP Team Crown Attacher pavel Disease Visit Annual PCP Team Chronic Disease Visit [facility] Start: 08-25-2024 End: 08-25-2024 Patient encounter procedure 08/25/2024 11:30 AM EDT Appointment Mammogram [address] [place] [address] mammogram screening que Mammogram Comment on above: mammogram screening que Start: 08-21-2024 Screening for malign ant neoplasm of breast Mammogram Screening [facility] Start: 08-13-2024 Annual PCP Team Crown Attacher pavel Disease Visit Annual PCP Team Chronic Disease Visit [facility] Start: 08-13-2024 Anxiety Screening Anxiety Screening [facility] Start: 08-13-2024 Depression Screening Depression Scre ening [facility] Start: 07-02-2024 End: 07-02-2024 Patient encounter procedure 07/02/2024 3:15 PM EDT Appointment Radiology [address] [place] [address] Soft tissue mass [M79.89]; History of breast cancer [Z85.3] Radiology Comment on above: Soft tissue mass [M7 9.89]; History of breast cancer [Z85.3] Start: 06-23-2024 End: 06-23-2024 ambulatory Hematology/Oncology Comment on above: 02/18/2025 Priority: Routine SCP Start: 06-18-2024 Covid-19 Vaccine (8 - Moderna risk season) Covid-19 Vaccine (8 - Moderna risk ) [facility] Start: 06-11-2024 Complete blood count Hemoglobin/Henri tocrit [facility] Start: 06-11-2024 Creatinine measurement Serum Creatin ine [facility] Start: 06-03-2024 End: 06-03-2024 Patient encounter procedure [facility] Comment on above: post op 6 month follow up Start: 06-01-2024 End: 06-01-2024 Patient encounter procedure 06/01/2024 11:40 AM EST Appointment Radiology [address] [place] [address] MRI BREAST WO/W IVCON BILATERAL Radiology Comment on above: MRI BREAST WO/W IVCO N BILATERAL Start: 05-29-2024 End: 05-29-2024 Patient encounter procedure 05/29/2024 11:40 AM EST Appointment Radiology [address] [place] [id number] MRI BREAST WO/W IVCON BILATERAL Radiology Comment on above: MRI BREAST WO/W IVCO N BILATERAL Start: 05-23-2024 Annual PCP Team Crown Attacher pavel Disease Visit Annual PCP Team Chronic Disease Visit [facility] Start: 05-21-2024 Annual PCP Team Crown Attacher pavel Disease Visit Annual PCP Team Chronic Disease Visit [facility] Start: 05-12-2024 End: 05-12-2024 Follow-up encounter 05/12/2024 10:00 AM EST [facility] Radiation Oncology [address] [place] [address] Benson Pierre MD [address] [place] [address] 4WK FOLLOW UP Radiation Oncology Comment on above: 4WK FOLLOW UP Start: 04-14-2024 End: 04-14-2024 Patient encounter procedure Radiation Oncology Comment on above: Location: [facility] Location: W-ON TREAT MENT VISIT Start: 04-13-2024 End: 04-13-2024 Patient encounter procedure 04/13/2024 1:45 PM EST Appointment Radiation Oncology [address] [place] [address] Location: [email or web address] Radiation Oncology Comment on above: Location: [facility] Start: 04-10-2024 End: 04-10-2024 Patient encounter procedure 04/10/2024 1:45 PM EST Appointment Radiation Oncology [address] [place] [id number] Location: [facility] Radiation Oncology Comment on above: Location: [facility] Start: 04-09-2024 End: 04-09-2024 Patient encounter procedure 04/09/2024 1:45 PM EST Appointment Radiation Oncology [address] [place] [address] Location: [email or web address] Radiation Oncology Comment on above: Location: [facility] Start: 04-08-2024 End: 04-08-2024 Patient encounter procedure 04/08/2024 1:45 PM EST Appointment Radiation Oncology [address] [place] [address] Boost starts today Radiation Oncology Comment on above: Boost starts today Start: 04-07-2024 End: 04-07-2024 Patient encounter procedure Radiation Oncology Comment on above: Location: [facility] Location: W-ON TREAT MENT VISIT Start: 04-06-2024 End: 04-06-2024 Patient encounter procedure 04/06/2024 1:45 PM EST Appointment Radiation Oncology [address] [place] [address] Location: [email or web address] Radiation Oncology Comment on above: Location: [facility] Start: 04-05-2024 DIABETES SCREEN DIABETES SCREEN [facility] Start: 04-03-2024 End: 04-03-2024 Patient encounter procedure 04/03/2024 1:45 PM EST Appointment Radiation Oncology [address] [place] [address] Location: [facility] Radiation Oncology Comment on above: Location: [facility] Start: 04-02-2024 End: 04-02-2024 Patient encounter procedure Radiation Oncology Comment on above: Location: [facility] Set up boost? Start: 04-01-2024 Advance Directive Discussion Advance Directive Discussion [facility] Start: 03-31-2024 End: 03-31-2024 Patient encounter procedure Radiation Oncology Comment on above: Location: [facility] Location: W-ON TREAT MENT VISIT Start: 03-30-2024 End: 03-30-2024 Patient encounter procedure 03/30/2024 1:45 PM EST Appointment Radiation Oncology [address] [place] [address] Location: [email or web address] Radiation Oncology Comment on above: Location: [facility] Start: 03-27-2024 End: 03-27-2024 Patient encounter procedure 03/27/2024 1:45 PM EST Appointment Radiation Oncology [address] [place], [place] [id number] Location: [email or web address] Radiation Oncology Comment on above: Location: [facility] Start: 03-26-2024 End: 03-26-2024 Patient encounter procedure 03/26/2024 1:45 PM EST Appointment Radiation Oncology [address] [place], [place] [phone] Location: [email or web address] Radiation Oncology Comment on above: Location: [facility] Start: 03-24-2024 End: 03-24-2024 Patient encounter procedure 03/24/2024 1:45 PM EST Appointment Radiation Oncology [address] [place], [place] [phone] Location: [email or web address] Radiation Oncology Comment on above: Location: [facility] Start: 03-24-2024 End: 03-24-2024 ambulatory 03/24/2024 9:50 AM EST Visit (SP) Office Hematology/Oncology [address] [place], [place] [phone] [place] [address] [place] [address] CBC CMP/OV Hematology/Oncology Comment on above: CBC CMP/OV Start: 03-23-2024 End: 03-23-2024 Patient encounter procedure 03/23/2024 1:45 PM EST Appointment Radiation Oncology [address] [place], [place] [phone] Location: [email or web address] Radiation Oncology Comment on above: Location: [facility] Start: 03-20-2024 End: 03-20-2024 Patient encounter procedure 03/20/2024 1:45 PM EST Appointment Radiation Oncology [address] [place], [place] [phone] Location: [email or web address] Radiation Oncology Comment on above: Location: [facility] Start: 03-19-2024 End: 03-19-2024 Patient encounter procedure 03/19/2024 1:45 PM EST Appointment Radiation Oncology [address] [place] [address] Location: [email or web address] Radiation Oncology Comment on above: Location: [facility] Start: 03-18-2024 End: 03-18-2024 Patient encounter procedure 03/18/2024 1:45 PM EST Appointment Radiation Oncology [address] [place] [id number] Location: [email or web address] Radiation Oncology Comment on above: Location: [facility] Start: 03-17-2024 End: 03-17-2024 Patient encounter procedure Radiation Oncology Comment on above: Location: [facility] Location: W-ON TREAT MENT VISIT Start: 03-16-2024 End: 03-16-2024 Patient encounter procedure Radiation Oncology Comment on above: Location: [facility] wants 1:45 Start: 03-11-2024 End: 03-11-2024 Patient encounter procedure 03/11/2024 11:30 AM EST Office Visit Radiation Oncology [address] [place] [phone] Benson Pierre MD [address] [place] [phone] sim at this time. wire scar. abc? Radiation Oncology Comment on above: sim at this time. wi re scar. abc? Start: 03-11-2024 End: 03-11-2024 Nursing evaluation of patient and report 03/11/2024 11:00 AM EST Nurse Visit Radiation Oncology [address] [place] [phone] Wstr, Nurse Radt [facility] [address] [place] [phone] Location: W-NURSING Radiation Oncology Comment on above: Location: W-NURSING Start: 03-04-2024 End: 03-04-2024 ambulatory 03/04/2024 10:30 AM EST [facility] Radiation Oncology [address] [place] [address] Benson Pierre MD [address] [facility] [address] [place], [place] [address] PHONE VISIT Radiation Oncology Comment on above: PHONE VISIT Start: 02-19-2024 End: 02-19-2024 Patient encounter procedure 02/19/2024 10:40 AM EST Office Visit Family Medicine [facility] [address] [place] [address] Luna Cope MD [address] [place] [address] 6 mo f/u Family [facility] [place] Comment on above: 6 mo f/u Start: 02-14-2024 Annual PCP Team Crown Attacher pavel Disease Visit Annual PCP Team Chronic Disease Visit [facility] Start: 02-14-2024 BP Controlled (<130/80) BP Controlle d (<130/80) [facility] Start: 02-14-2024 End: 05-15-2024 CBC W Auto Differential panel - Blood COMPLETE BLOOD COUNT AND DIFFERENTIAL Lab Routine Stage 3a chronic kidney disease (HCC) Expected: 02/14/2024, Expires: 05/15/2024 [facility] Work Phone: Comment on above: Expected: 02/14/2024 , Expires: 05/15/2024 Start: 02-14-2024 End: 05-15-2024 Comprehensive metabolic 2000 panel - Serum or Plasma COMPREHENSIVE METABOLIC PANEL Lab Routine Stage 3a chronic kidney disease (HCC) Expected: 02/14/2024, Expires: 05/15/2024 [facility] Comment on above: Expected: 02/14/2024 , Expires: 05/15/2024 Start: 02-14-2024 Covid-19 Vaccine () Covid-19 Vaccine () [facility] Start: 02-14-2024 End: 05-15-2024 Lipid 1996 panel - Serum or Plasma LIPID PANEL BASIC Lab Routine Stage 3a chronic kidney disease (HCC) Expected: 02/14/2024, Expires: 05/15/2024 [facility] Comment on above: Expected: 02/14/2024 , Expires: 05/15/2024 Start: 02-14-2024 RSV Vaccine (1 - 1-d ose 60+ series) RSV Vaccine (1 - 1-dose 60+ series) [facility] Comment on above: Postponed from 01/14 (Declined at this time) Start: 02-14-2024 RSV Vaccine (1 - Ris k 60-74 years 1-dose series) RSV Vaccine (1 - Risk 60-74 years 1-dose series) [facility] Comment on above: Postponed from 01/14 (Declined at this time) Start: 02-13-2024 End: 02-13-2024 ambulatory [facility] Comment on above: (SO)CBC/CMP(S)* REDRAW LABS/Q3WK TAX OTERE/CYTOXAN/4-4/LAB&OV 118/MDCR* NO LATER THAN 230 WITH LABS Start: 02-11-2024 End: 02-11-2024 ambulatory 02/11/2024 8:30 AM EST Infusion Center Hematology/Oncology [address] [place] [address] Q3WK TAXOTERE/CYTOXAN/4-4/LAB &OV 8/MDCR* NO LATER THAN 230 WITH LABS Hematology/Oncology Comment on above: Q3WK TAXOTERE/CYTOXA N/4-4/LAB&OV 118/MDCR* NO LATER THAN 230 WITH LABS Start: 02-07-2024 End: 02-07-2024 ambulatory [facility] Comment on above: CBC/CMP OV/LAB EARLY/CHEMO 1 04/12* KARENA (SO)CBC/CMP(S) Start: 01-21-2024 End: 01-21-2024 ambulatory 01/21/2024 10:00 AM EDT Infusion Center Hematology/Oncology [address] [place] [address] Q3WK TAXOTERE/CYTOXAN/3-4/LAB &OV 18/MDCR* NO LATER THAN 230 WITH LABS Hematology/Oncology Comment on above: Q3WK TAXOTERE/CYTOXA N/3-4/LAB&OV 10/18/MDCR* NO LATER THAN 230 WITH LABS Start: 01-17-2024 End: 01-17-2024 ambulatory [facility] Comment on above: CBC/CMP OV/LAB EARLY/CHEMO 1 * KARENA (SO)CBC/CMP(S) Start: 12-31-2023 End: 12-31-2023 ambulatory 12/31/2023 10:00 AM EDT Infusion Center Hematology/Oncology [address] [place] [address] Q3WK TAXOTERE/CYTOXAN/2-4/LAB &OV 12/26/MDCR* NO LATER THAN 230 WITH LABS Hematology/Oncology Comment on above: Q3WK TAXOTERE/CYTOXA N/2-4/LAB&OV 12/26/MDCR* NO LATER THAN 230 WITH LABS Start: 12-30-2023 End: 12-30-2023 Patient encounter procedure 12/30/2023 1:00 PM EDT OT/PT/Speech Visit [facility] Physical Therapy [address] [place] [address] Roberto Ulloa, PT CONSULT TO BREAST REHAB PROGRAM [facility] Physical Therapy Comment on above: CONSULT TO BREAST RE HAB PROGRAM Start: 12-27-2023 End: 12-27-2023 ambulatory [facility] Comment on above: CBC/CMP OV/LAB EARLY/CHEMO 1 * KARENA (SO)CBC/CMP(S) Start: 12-10-2023 End: 12-10-2023 ambulatory [facility] Comment on above: CBC/CMP STRAIGHTBACK START Q 3WK TAXOTERE/CYTOXAN/1-4/LAB EARLY/MDCR* NO LATER THAN 230 WITH LABS START Q3WK TAXOTERE/ CYTOXAN/1-4/LAB EARLY/MDCR* NO LATER THAN 230 WITH LABS Start: 12-05-2023 End: 12-05-2023 ambulatory 12/05/2023 10:30 AM EDT Infusion Center Hematology/Oncology [address] [place] [address] Wstr, Experimental Physicist [facility] [address] [place] [address] CHEMO ED - CARBO/TAXOL* Hematology/Oncology Comment on above: CHEMO ED - CARBO/TAX OL* Start: 12-01-2023 Covid-19 Vaccine ( season) Covid-19 Vaccine () [facility] Start: 12-01-2023 Influenza vaccination Influenza Vacc ine (#1) [facility] Start: 11-29-2023 End: 11-29-2023 Patient encounter procedure 11/29/2023 10:30 AM EDT Office Visit Radiation Oncology [address] [place] [address] Benson Pierre MD [address] [place] [address] Follow up Radiation Oncology Comment on above: Follow up Start: 11-28-2023 End: 11-28-2023 Patient encounter procedure 11/28/2023 10:30 AM EDT Office Visit Radiation Oncology [address] [place] [address] Benson Pierre MD [address] [place] [address] Follow up Radiation Oncology Comment on above: Follow up Start: 11-27-2023 End: 11-27-2023 ambulatory 11/27/2023 2:20 PM EDT Visit (SP) Office Hematology/Oncology [address] [place] [address] [place] [address] [place] [address] OV/PARTIAL MASECTOMY 11/11* Hematology/Oncology Comment on above: OV/PARTIAL MASECTOMY 11/11* Start: 11-27-2023 End: 11-27-2023 Patient encounter procedure 11/27/2023 8:30 AM EDT Office Visit [facility] [address] [place] [phone] Pk Ramsey PA-C [address] [place] [address] post op [facility] Comment on above: post op Start: 11-12-2023 End: 11-12-2023 Admission to same day surgery center [facility] Operating Room Comment on above: MASTECTOMY PARTIAL Start: 11-12-2023 End: 11-12-2023 Bx/exc lymph node open deep axillary node [facility] Start: 11-12-2023 End: 11-12-2023 Intraop sentinel lymph node id w/dye injection [facility] Start: 11-12-2023 End: 11-12-2023 Mastectomy partial [facility] Start: 11-12-2023 End: 11-12-2023 Perq device placement breast loc 1st les w/gdnce [facility] Start: 11-12-2023 Subsequent hospital visit by physician [facility] Operating Room Comment on above: Triple negative pal st carcinoma (HCC) [C50.919, Z17.1] Start: 11-12-2023 End: 11-12-2023 Patient encounter procedure 11/12/2023 7:15 AM EDT Appointment [facility] [address] [place] [address] [place] [address] [place] [address] sentinel injection at 7:15 am , to inject by Dr. Sanchez in [facility] OR. [facility] Comment on above: sentinel injection a t 7:15 am , to inject by Dr. Sanchez in [facility] OR. Start: 11-11-2023 End: 11-11-2023 Patient encounter procedure [facility] Comment on above: post op regroup go over mri bx results Start: 11-08-2023 End: 11-08-2023 Patient encounter procedure 11/08/2023 12:00 PM EDT Appointment MRI A10 [address] [address] MRI Left Breast Bx per email MRI A10 Comment on above: MRI Left Breast Bx p er email Start: 11-08-2023 Subsequent hospital visit by physician 11/08/2023 12:00 PM EDT Hospital Encounter MRI A10 [address] [address] Abnormal finding on breast imaging [R92.8] MRI A10 Comment on above: Abnormal finding on breast imaging [R92.8] Start: 11-07-2023 End: 11-07-2023 Patient encounter procedure 11/07/2023 12:00 PM EDT Appointment MRI A10 [address] [address] MRI Right Breast BX per email MRI A10 Comment on above: MRI Right Breast BX per email Start: 11-04-2023 End: 11-04-2023 Nursing evaluation of patient and report 11/04/2023 10:30 AM EDT Nurse Visit [facility] [address] [place] [address] Crystal Connolly LPN [address] [place] [address] teaching [facility] Comment on above: teaching Start: 10-28-2023 End: 10-28-2023 Admission to same day surgery center 10/28/2023 11:45 AM EDT - 10/28/2023 1:25 PM EDT Surgery Ambulatory Surgery [id number] [place] [address] [place] [address] [place] [address] MASTECTOMY PARTIAL Ambulatory Surgery Comment on above: MASTECTOMY PARTIAL Start: 10-28-2023 End: 10-28-2023 Bx/exc lymph node open deep axillary node BIOPSY NODE SENTINEL AXILLARY 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) 10/28/2023 11:[address] [facility] Start: 10-28-2023 End: 10-28-2023 Intraop sentinel lymph node id w/dye injection INTRAOPERATIVE ID OF SENTINEL LYMPH NODE(S) INCL'D INJECTION OF NON-RAD DYE WHEN PERFORMED 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) 10/28/2023 11:[address] [facility] Start: 10-28-2023 End: 10-28-2023 Mastectomy partial MASTECTOMY PARTIAL 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) 10/28/2023 11:[address] [facility] Start: 10-28-2023 End: 10-28-2023 Perq device placement breast loc 1st les w/gdnce PLACEMENT OF BREAST LOCALIZATION DEVICE(S) PERCUTANEOUS; FIRST LESION, MAMMOGRAPHIC GUIDANCE 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) 10/28/2023 11:[address] [facility] Start: 10-28-2023 Subsequent hospital visit by physician 10/28/2023 11:45 AM EDT Hospital Encounter Ambulatory Surgery [address] [place] [address] [place] [address] [place] [address] 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) [C50.919, Z17.1] Ambulatory Surgery Comment on above: Triple negative pal st carcinoma (HCC) [C50.919, Z17.1] Start: 10-28-2023 End: 10-28-2023 Admission to same day surgery center 10/28/2023 10:15 AM EDT - 10/28/2023 11:55 AM EDT Surgery Ambulatory Surgery [address] [place] [address] [place] [address] [place] [address] MASTECTOMY PARTIAL Ambulatory Surgery Comment on above: MASTECTOMY PARTIAL Start: 10-28-2023 End: 10-28-2023 Bx/exc lymph node open deep axillary node BIOPSY NODE SENTINEL AXILLARY 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) 10/28/2023 10:[address] [facility] Start: 10-28-2023 End: 10-28-2023 Intraop sentinel lymph node id w/dye injection INTRAOPERATIVE ID OF SENTINEL LYMPH NODE(S) INCL'D INJECTION OF NON-RAD DYE WHEN PERFORMED 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) 10/28/2023 10:[address] [facility] Start: 10-28-2023 End: 10-28-2023 Mastectomy partial MASTECTOMY PARTIAL 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) 10/28/2023 10:[address] [facility] Start: 10-28-2023 End: 10-28-2023 Perq device placement breast loc 1st les w/gdnce PLACEMENT OF BREAST LOCALIZATION DEVICE(S) PERCUTANEOUS; FIRST LESION, MAMMOGRAPHIC GUIDANCE 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) 10/28/2023 10:[address] [facility] Start: 10-28-2023 Subsequent hospital visit by physician 10/28/2023 10:15 AM EDT Hospital Encounter Ambulatory Surgery [address] [place] [address] [place] [address] [place] [address] 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) [C50.919, Z17.1] Ambulatory Surgery Comment on above: Triple negative pal st carcinoma (HCC) [C50.919, Z17.1] Start: 10-24-2023 End: 10-24-2023 Patient encounter procedure 10/24/2023 10:30 AM EDT Office Visit Radiation Oncology [address] [place], [place] [phone] Benson Pierre MD [address] [place], [place] [phone] Malignant neoplasm of lower-inner quadrant of left breast in female, estrogen receptor negative (HCC) [C50.312, Z17.1]; 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) [C50.919, Z17.1] Radiation Oncology Comment on above: Malignant neoplasm o f lower-inner quadrant of left breast in female, estrogen receptor negative (HCC) [C50.312, Z17.1]; 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) [C50.919, Z17.1] Start: 10-24-2023 End: 10-24-2023 ambulatory 10/24/2023 9:00 AM EDT Visit (SP) Office Hematology/Oncology [address] [place], [place] [id number] [place] [address] [place] [address] DEVOPS DEVELOPER/Malignant neoplasm of lower-inner quadrant of left breast in female, estrogen receptor negative (HCC) [C50.312, Z17.1]; 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) [C50.919, Z17.1]/REF PROV DR SANCHEZ* Hematology/Oncology Comment on above: DEVOPS DEVELOPER/Malignant neoplas m of lower-inner quadrant of left breast in female, estrogen receptor negative (HCC) [C50.312, Z17.1]; 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) [C50.919, Z17.1]/REF PROV DR SANCHEZ* Start: 10-23-2023 End: 01-22-2024 Comprehensive metabolic 2000 panel - Serum or Plasma [facility] Work Phone: Comment on above: Expected: 10/23/2023 , Expires: 01/22/2024 Start: 10-23-2023 End: 10-23-2023 Patient encounter procedure 10/23/2023 9:30 AM EDT Appointment Mammography [address] [address] [facility] Comment on above: [facility] Start: 10-23-2023 End: 10-23-2023 Anesthesia consultation 10/23/2023 8:00 AM EDT PAT Pre Anesthesia [address] [address] [place] [address] PRE OP PACC Pre Anesthesia Comment on above: PRE OP PACC Start: 10-21-2023 End: 10-21-2023 Patient encounter procedure General Surgery Comment on above: Follow up 09/24- ents choice regroup Start: 10-18-2023 End: 10-18-2023 Patient encounter procedure 10/18/2023 1:30 PM EDT Appointment MRI [facility] [address] [place] [address] MRI BREAST WO/W IVCON BILATERAL MRI [facility] Comment on above: MRI BREAST WO/W IVCO N BILATERAL Start: 10-11-2023 End: 10-11-2023 Patient encounter procedure 10/11/2023 3:00 PM EDT Office Visit General Surgery [address] [place] [address] Evita Sanchez [address] [place] [address] new cancer General Surgery Comment on above: new cancer Start: 09-25-2023 End: 09-25-2023 Patient encounter procedure 09/25/2023 12:45 PM EDT Office Visit General Surgery [address] [place] [address] Layla Norris MD [address] [place] [address] Us mammotome breast bx General Surgery Comment on above: Us mammotome breast bx Start: 09-23-2023 End: 09-23-2023 Patient encounter procedure 09/23/2023 1:15 PM EDT Office Visit General Surgery [address] [place] [address] Layla Norris MD [address] [place] [address] biopsy consult / lt breast mass General Surgery Comment on above: biopsy consult / lt breast mass Start: 09-04-2023 ANNUAL PCP TEAM SIPHON OPERATOR PAVEL DISEASE VISIT ANNUAL PCP TEAM CHRONIC DISEASE VISIT [facility] Start: 09-04-2023 BP CONTROLLED (<130/80) BP CONTROLLE D (<130/80) [facility] Start: 08-28-2023 End: 08-28-2023 Patient encounter procedure 08/28/2023 9:00 AM EDT Office Visit [facility] [address] [place] [address] Luna Cope MD [address] [place] [address] [facility] follow up nose bleed Family Medicine [facility] Comment on above: f [facility] follow up nos e bleed Start: 08-27-2023 End: 08-27-2023 Patient encounter procedure Mammogram Comment on above: Comp- LT CB did tril mireille rad poss RT breast also VM for pt to call back to verify appointments- [place], pt confirmed appts ABNORMAL MAMMOGRAM Start: 08-22-2023 End: 08-22-2023 Patient encounter procedure Mammogram Comment on above: Encounter for screen ing mammogram for malignant neoplasm of breast [Z12.31] Osteopenia of multip le sites [M85.89]; Disorder of bone [M89.9] Start: 08-16-2023 Mammography [facility] Start: 08-16-2023 Screening for malign ant neoplasm of breast Mammogram Screening [facility] Start: 08-14-2023 End: 08-14-2023 Patient encounter procedure 08/14/2023 3:40 PM EDT Office Visit Family Onofre [place] [address] [place], [place] [id number] Luna Cope MD [address] [place], [place] [id number] 6 month follow up Family Medicine Tre Comment on above: 6 month follow up Start: 08-07-2023 ANNUAL PCP TEAM SIPHON OPERATOR PAVEL DISEASE VISIT ANNUAL PCP TEAM CHRONIC DISEASE VISIT [facility] Start: 08-07-2023 BP CONTROLLED (<130/80) BP CONTROLLE D (<130/80) [facility] Start: 05-23-2023 End: 08-22-2023 Basic metabolic 2000 panel - Serum or Plasma BASIC METABOLIC PNL Lab Routine Renal insufficiency Polycythemia Expected: 05/23/2023, Expires: 08/22/2023 [facility] Work Phone: Comment on above: Expected: 05/23/2023 , Expires: 08/22/2023 Start: 05-23-2023 End: 08-22-2023 CBC W Auto Differential panel - Blood CBC + DIFF Lab Routine Renal insufficiency Polycythemia Expected: 05/23/2023, Expires: 08/22/2023 [facility] Work Phone: Comment on above: Expected: 05/23/2023 , Expires: 08/22/2023 Start: 04-01-2023 Advance Directive Discussion Advance Directive Discussion [facility] Start: 04-01-2023 Behavioral Health Screening Behavioral Health Screening [facility] Start: 04-01-2023 Depression Assessment Depression Ass [facility] Start: 02-05-2023 ANNUAL PCP TEAM SIPHON OPERATOR PAVEL DISEASE VISIT ANNUAL PCP TEAM CHRONIC DISEASE VISIT [facility] Start: 02-05-2023 BP CONTROLLED (<130/80) BP CONTROLLE D (<130/80) [facility] Start: 11-30-2022 Covid-19 Vaccine () Covid-19 Vaccine () [facility] Start: 11-30-2022 Influenza vaccination INFLUENZA (#1) [facility] Start: 08-31-2022 BP CONTROLLED (<130/80) BP CONTROLLE D (<130/80) [facility] Start: 08-11-2022 Mammography MAMMOGRAM [facility] Start: 07-31-2022 Adult depression screening assessment DEPRESSION SCREENING [facility] Start: 07-31-2022 ANNUAL PCP TEAM SIPHON OPERATOR PAVEL DISEASE VISIT ANNUAL PCP TEAM CHRONIC DISEASE VISIT [facility] Start: 07-31-2022 BP CONTROLLED (<130/80) BP CONTROLLE D (<130/80) [facility] Start: 07-21-2022 BP CONTROLLED (<130/80) BP CONTROLLE D (<130/80) [facility] Start: 04-30-2022 COVID-19 VACCINE (5 - Moderna series) COVID-19 VACCINE (5 - Moderna series) [facility] Start: 04-03-2022 BP CONTROLLED (<130/80) BP CONTROLLE D (<130/80) [facility] Start: 04-01-2022 ADVANCE DIRECTIVE DISCUSSION ADVANCE DIRECTIVE DISCUSSION [facility] Start: 04-01-2022 DEPRESSION ASSESSMENT DEPRESSION ASS ESSMENT [facility] Start: 01-31-2022 End: 04-02-2022 CBC W Auto Differential panel - Blood CBC + DIFF Lab Routine Essential hypertension, benign Expected: 01/31/2022, Expires: 04/02/2022 [facility] Work Phone: Comment on above: Expected: 01/31/2022 , Expires: 04/02/2022 Start: 01-31-2022 End: 04-02-2022 Comprehensive metabolic 2000 panel - Serum or Plasma COMP METABOLIC PANEL Lab Routine Essential hypertension, benign Expected: 01/31/2022, Expires: 04/02/2022 [facility] Work Phone: Comment on above: Expected: 01/31/2022 , Expires: 04/02/2022 Start: 01-31-2022 End: 04-02-2022 LIPID PANEL BASIC LIPID PANEL BASIC Lab Routine Other hyperlipidemia Expected: 01/31/2022, Expires: 04/02/2022 [facility] Work Phone: Comment on above: Expected: 01/31/2022 , Expires: 04/02/2022 Start: 01-30-2022 ANNUAL PCP TEAM SIPHON OPERATOR PAVEL DISEASE VISIT ANNUAL PCP TEAM CHRONIC DISEASE VISIT [facility] Start: 11-30-2021 Influenza vaccination INFLUENZA (#1) [facility] Start: 08-29-2021 PAP TESTING PAP TESTING [facility] Start: 08-29-2021 Screening for malign ant neoplasm of cervix [facility] Start: 08-10-2021 Mammography MAMMOGRAM [facility] Start: 05-26-2021 COVID-19 VACCINE (4 - Booster for Moderna series) COVID-19 VACCINE (4 - Booster for Moderna series) [facility] Start: 04-01-2021 ADVANCE DIRECTIVE DISCUSSION ADVANCE DIRECTIVE DISCUSSION [facility] Start: 05-21-2018 Adult depression screening assessment DEPRESSION SCREENING [facility] Start: 06-12-2017 End: 06-12-2017 Appointment Appointment [facility] Work Phone: Start: 12-03-2016 End: 03-27-2017 *Hepatic Function Panel *Hepatic Function Panel [facility] Work Phone: Start: 12-03-2016 End: 03-27-2017 Lipid panel [AGGREGATE] *Lipid Profile CC PCP [facility] Work Phone: Start: 06-12-2016 End: 05-31-2016 *Hepatic Function Panel *Hepatic Function Panel [facility] Work Phone: Start: 06-12-2016 End: 05-31-2016 Lipid panel [AGGREGATE] *Lipid Profile CC PCP [facility] Work Phone: Start: 06-06-2016 End: 06-06-2016 Follow Up Appt 1 year Follow Up Appt 1 year [facility] Work Phone: Start: 06-06-2016 End: 06-06-2016 PFM PFM [facility] Work Phone: Start: 12-19-2015 End: 12-19-2015 Follow Up Appt 9 months Follow Up Appt 9 months [facility] Work Phone: Start: 12-19-2015 End: 12-19-2015 PFM PFM [facility] Work Phone: Start: 12-02-2015 End: 12-13-2015 *Hepatic Function Panel *Hepatic Function Panel [facility] Work Phone: Start: 12-02-2015 End: 12-13-2015 Lipid panel [AGGREGATE] *Lipid Profile CC PCP [facility] Work Phone: Start: 05-27-2015 End: 06-01-2015 *Hepatic Function Panel *Hepatic Function Panel [facility] Work Phone: Start: 05-27-2015 End: 06-01-2015 Lipid panel [AGGREGATE] *Lipid Profile CC PCP [facility] Work Phone: Start: 12-01-2014 End: 06-01-2015 *Hepatic Function Panel *Hepatic Function Panel [facility] Work Phone: Start: 12-01-2014 End: 12-01-2014 Follow Up Appt 1 year Follow Up Appt 1 year [facility] Work Phone: Start: 12-01-2014 End: 06-01-2015 Lipid panel [AGGREGATE] *Lipid Profile CC PCP [facility] Work Phone: Start: 12-01-2014 End: 12-01-2014 PFM PFM [facility] Work Phone: Start: 11-08-2014 End: 11-24-2014 *Hepatic Function Panel *Hepatic Function Panel [facility] Work Phone: Start: 11-08-2014 End: 11-24-2014 Lipid panel [AGGREGATE] *Lipid Profile CC PCP [facility] Work Phone: Start: 05-17-2014 End: 05-17-2014 Follow Up Appt 6 months Follow Up Appt 6 months [facility] Work Phone: Start: 05-17-2014 End: 05-17-2014 PFM PFM [facility] Work Phone: Start: 05-02-2014 End: 05-11-2014 *Hepatic Function Panel *Hepatic Function Panel [facility] Work Phone: Start: 05-02-2014 End: 05-11-2014 Lipid panel [AGGREGATE] *Lipid Profile CC PCP [facility] Work Phone: Start: 11-16-2013 End: 11-16-2013 Follow Up Appt 6 months Follow Up Appt 6 months [facility] Work Phone: Start: 11-16-2013 End: 11-16-2013 MMM MMM [facility] Work Phone: Start: 10-30-2013 End: 11-11-2013 *Hepatic Function Panel *Hepatic Function Panel [facility] Work Phone: Start: 10-30-2013 End: 11-11-2013 Lipid panel [AGGREGATE] *Lipid Profile CC PCP [facility] Work Phone: Start: 05-02-2013 End: 05-19-2013 *Hepatic Function Panel *Hepatic Function Panel [facility] Work Phone: Start: 05-02-2013 End: 05-19-2013 Lipid panel [AGGREGATE] *Lipid Profile CC PCP [facility] Work Phone: Start: 11-17-2012 End: 11-17-2012 Follow Up Appt 1 year Follow Up Appt 1 year [facility] Work Phone: Start: 11-17-2012 End: 11-17-2012 PFM PFM [facility] Work Phone: Start: 09-29-2012 End: 10-21-2012 *Hepatic Function Panel *Hepatic Function Panel [facility] Work Phone: Start: 09-29-2012 End: 10-21-2012 Lipid panel [AGGREGATE] *Lipid Profile [facility] Work Phone: Start: 04-14-2012 End: 04-21-2012 *Hepatic Function Panel *Hepatic Function Panel [facility] Work Phone: Start: 04-14-2012 End: 04-21-2012 Lipid panel [AGGREGATE] *Lipid Profile [facility] Work Phone: Start: 2012 RSV Vaccine (1 - 1-d ose 60+ series) RSV Vaccine (1 - 1-dose 60+ series) [facility] Start: 11-19-2011 End: 02-29-2012 *Hepatic Function Panel *Hepatic Function Panel [facility] Work Phone: Start: 11-19-2011 End: 05-17-2014 Follow Up Appt 1 year Follow Up Appt 1 year [facility] Work Phone: Start: 11-19-2011 End: 02-29-2012 Lipid panel [AGGREGATE] *Lipid Profile [facility] Work Phone: Start: 01-14-1997 COLOGUARD (FIT-DNA) COLOGUARD (FIT-D NA) [facility] Start: 01-14-[address] COLONOGRAPHY [facility] Start: 01-14-1997 FECAL OCCULT BLOOD FECAL OCCULT BLOO D [facility] Start: 01-14-1997 Screening for malign ant neoplasm of colon [facility] Start: 01-14-1997 SIGMOIDOSCOPY SIGMOIDOSCOPY [facility] Start: 01-14-1970 BP CONTROLLED (<130/80) BP CONTROLLE D (<130/80) [facility] Start: 01-14-1970 HEPATITIS C SCREENING HEPATITIS C [facility] Bacteria identified in Urine by Culture URINE CULTURE Microbiology Routine LLQ pain Left lower quadrant abdominal pain 05/21/2023 2:09 PM EST [facility] Work Phone: Bacteria identified in Urine by Culture URINE CULTURE Microbiology Routine Urinary frequency 09/02/2023 10:55 AM EDT [facility] Work Phone: End: 09-12-2024 BD DXA TRABECULAR BONE SCORE (TBS) BD DXA TRABECULAR BONE SCORE (TBS) Radiology Routine Osteopenia of multiple sites Disorder of bone 1 Occurrences starting 08/14/2023 until 09/12/2024 [facility] Comment on above: 1 Occurrences starti ng 08/14/2023 until 09/12/2024 BD DXA TRABECULAR JEEVAN NE SCORE (TBS) BD DXA TRABECULAR BONE SCORE (TBS) Radiology Routine Osteopenia of multiple sites Disorder of bone 08/22/2023 3:12 PM EDT [facility] Bx/exc lymph node op en deep axillary node [facility] Comment on above: Ordered: 10/14/2023 End: 11-26-2024 CBC W Auto Differential panel - Blood COMPLETE BLOOD COUNT AND DIFFERENTIAL Lab STAT Malignant neoplasm of lower-inner quadrant of left breast in female, estrogen receptor negative (HCC) Every 3 weeks for 6 Occurrences starting 11/27/2023 until 11/26/2024 [facility] Work Phone: Comment on above: Every 3 weeks for 6 Occurrences starting 11/27/2023 until 11/26/2024 End: 11-26-2024 Comprehensive metabolic 2000 panel - Serum or Plasma COMPREHENSIVE METABOLIC PANEL Lab STAT Malignant neoplasm of lower-inner quadrant of left breast in female, estrogen receptor negative (HCC) Every 3 weeks for 6 Occurrences starting 11/27/2023 until 11/26/2024 [facility] Comment on above: Every 3 weeks for 6 Occurrences starting 11/27/2023 until 11/26/2024 CT Guidance for radiation treatment of Unspecified body region CT SIM PLANNING RADIATION ONCOLOGY Radiology Routine Malignant neoplasm of lower-inner quadrant of left breast in female, estrogen receptor negative (HCC) Ordered: 03/16/2024 [facility] Work Phone: Comment on above: Ordered: 03/16/2024 End: 09-12-2024 DBT Breast - bilateral screening ZAC SCREENING W QUE Radiology Routine Encounter for screening mammogram for malignant neoplasm of breast 1 Occurrences starting 08/14/2023 until 09/12/2024 [facility] Comment on above: 1 Occurrences starti ng 08/14/2023 until 09/12/2024 DBT Breast - bilater al screening ZAC SCREENING W QUE Radiology Routine Encounter for screening mammogram for malignant neoplasm of breast 08/22/2023 2:49 PM EDT [facility] Work Phone: End: 07-03-2025 DBT Breast - bilateral screening ZAC SCREENING W QUE Radiology Routine Breast cancer screening, high risk patient Encounter for screening mammogram for malignant neoplasm of breast 1 Occurrences starting 06/03/2024 until 07/03/2025 [facility] Work Phone: Comment on above: 1 Occurrences starti ng 06/03/2024 until 07/03/2025 DBT Breast - bilater al screening ZAC SCREENING W QUE Radiology Routine Breast cancer screening, high risk patient Encounter for screening mammogram for malignant neoplasm of breast 08/25/2024 1:10 PM EDT [facility] Work Phone: End: 09-12-2024 DXA Skeletal system.axial Views for bone density DXA-AXIAL SKELETON Radiology Routine Osteopenia of multiple sites Disorder of bone 1 Occurrences starting 08/14/2023 until 09/12/2024 [facility] Comment on above: 1 Occurrences starti ng 08/14/2023 until 09/12/2024 DXA Skeletal system.axial Views for bone density DXA-AXIAL SKELETON Radiology Routine Osteopenia of multiple sites Disorder of bone 08/22/2023 3:12 PM EDT [facility] Work Phone: ECG COMPLETE ECG COMPLETE ECG Routine Pre-op evaluation 10/23/2023 9:36 AM EDT [facility] Exc breast les preop plmt rad marker open 1 les EXCIS BREAST LES W XRAY MARKER Procedures Routine 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) Ordered: 10/14/2023 [facility] Comment on above: Ordered: 10/14/2023 End: 06-24-2024 Flexible sigmoidoscopy study COLONOSCOPY DIAGNOSTIC Endoscopy Routine LLQ pain History of partial colectomy 1 Occurrences starting 06/25/2023 until 06/24/2024 [facility] Work Phone: Comment on above: 1 Occurrences starti ng 06/25/2023 until 06/24/2024 H&P for surgery H&P FOR SURGERY Procedures Routine 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) Ordered: 10/14/2023 [facility] Comment on above: Ordered: 10/14/2023 Hepatic function panel [facility] Inj radioactive trac er for id of sentinel node IDENTIFY SENTINEL NODE Procedures Routine 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) Ordered: 10/14/2023 [facility] Comment on above: Ordered: 10/14/2023 Intraop sentinel lym ph node id w/dye injection INTRAOPERATIVE ID OF SENTINEL LYMPH NODE(S) INCL'D INJECTION OF NON-RAD DYE WHEN PERFORMED 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) FV OR Lipid 1996 panel - Serum or Plasma [facility] End: 08-03-2022 ZAC SCREENING W QUE ZAC SCREENING W QUE Radiology Routine Screening breast examination Encounter for screening mammogram for malignant neoplasm of breast 1 Occurrences starting 07/04/2021 until 08/03/2022 [facility] Work Phone: Comment on above: 1 Occurrences starti ng 07/04/2021 until 08/03/2022 Mastectomy partial [facility] Comment on above: Ordered: 10/14/2023 End: 09-21-2024 MG Breast - left Diagnostic for implant ZAC DIAGNOSTIC LEFT Radiology Routine Inconclusive mammogram 1 Occurrences starting 08/23/2023 until 09/21/2024 [facility] Work Phone: Comment on above: 1 Occurrences starti ng 08/23/2023 until 09/21/2024 End: 11-12-2024 MG Guidance for needle localization of Breast - left ZAC NDL LOC W ZAC GD LEFT Radiology Routine 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) 1 Occurrences starting 10/14/2023 until 11/12/2024 [facility] Work Phone: Comment on above: 1 Occurrences starti ng 10/14/2023 until 11/12/2024 Microscopic observat ion [Identifier] in Vaginal fluid by Gram stain BACT/CHAR VAG GRAM STAIN Microbiology Routine Vaginal discharge 07/21/2021 10:21 AM EDT [facility] Work Phone: End: 11-07-2024 MR Breast - bilateral WO and W contrast IV MRI BREAST WO/W IVCON BILATERAL Radiology Routine Malignant neoplasm of lower-inner quadrant of left breast in female, estrogen receptor negative (HCC) 1 Occurrences starting 10/09/2023 until 11/07/2024 [facility] Work Phone: Comment on above: 1 Occurrences starti ng 10/09/2023 until 11/07/2024 End: 12-26-2024 MR Breast - bilateral WO and W contrast IV MRI BREAST WO/W IVCON BILATERAL Radiology Routine 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) Abnormal finding on breast imaging 1 Occurrences starting 11/27/2023 until 12/26/2024 [facility] Work Phone: Comment on above: 1 Occurrences starti ng 11/27/2023 until 12/26/2024 MR Breast - bilatera l WO and W contrast IV MRI BREAST WO/W IVCON BILATERAL Radiology Routine 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) Abnormal finding on breast imaging 06/01/2024 1:06 PM EST [facility] Work Phone: End: 07-03-2025 MR Breast - bilateral WO and W contrast IV MRI BREAST WO/W IVCON BILATERAL Radiology Routine Breast cancer screening, high risk patient Abnormal MRI, breast 1 Occurrences starting 06/03/2024 until 07/03/2025 [facility] Comment on above: 1 Occurrences starti ng 06/03/2024 until 07/03/2025 End: 11-19-2024 MR Breast - left WO and W contrast IV MRI BREAST BX WO/W IVCON LEFT Radiology Routine Abnormal finding on breast imaging 1 Occurrences starting 10/21/2023 until 11/19/2024 [facility] Work Phone: Comment on above: 1 Occurrences starti ng 10/21/2023 until 11/19/2024 End: 11-19-2024 MR Breast - right WO and W contrast IV MRI BREAST BX WO/W IVCON RIGHT Radiology Routine Abnormal finding on breast imaging 1 Occurrences starting 10/21/2023 until 11/19/2024 [facility] Comment on above: 1 Occurrences starti ng 10/21/2023 until 11/19/2024 End: 11-07-2024 MRI BREAST 3D POST PROCESSING MRI BREAST 3D POST PROCESSING Radiology Routine Malignant neoplasm of lower-inner quadrant of left breast in female, estrogen receptor negative (HCC) 1 Occurrences starting 10/09/2023 until 11/07/2024 [facility] Comment on above: 1 Occurrences starti ng 10/09/2023 until 11/07/2024 End: 12-26-2024 MRI BREAST 3D POST PROCESSING MRI BREAST 3D POST PROCESSING Radiology Routine 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) Abnormal finding on breast imaging 1 Occurrences starting 11/27/2023 until 12/26/2024 [facility] Comment on above: 1 Occurrences starti ng 11/27/2023 until 12/26/2024 MRI BREAST 3D POST PROCESSING MRI BREAST 3D POST PROCESSING Radiology Routine Malignant neoplasm of lower-inner quadrant of left breast in female, estrogen receptor negative (HCC) 10/18/2023 2:36 PM EDT [facility] Work Phone: End: 07-03-2025 MRI BREAST 3D POST PROCESSING MRI BREAST 3D POST PROCESSING Radiology Routine Breast cancer screening, high risk patient Abnormal MRI, breast 1 Occurrences starting 06/03/2024 until 07/03/2025 [facility] Comment on above: 1 Occurrences starti ng 06/03/2024 until 07/03/2025 End: 11-13-2024 NM Lymph node Views NM INJ SENTINEL NODE BREAST LEFT Radiology Routine 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) 1 Occurrences starting 10/14/2023 until 11/13/2024 [facility] Comment on above: 1 Occurrences starti ng 10/14/2023 until 11/13/2024 NM Lymph node Views NM INJ SENTI EMIR NODE BREAST LEFT Radiology Routine 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) 11/12/2023 8:43 AM EDT [facility] Patient Education [facility] [employer] Work Phone: Perq device placemen t breast loc 1st les w/gdnce PLACEMENT OF BREAST LOCALIZATION DEVICE(S) PERCUTANEOUS; FIRST LESION, MAMMOGRAPHIC GUIDANCE 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) FV OR PT education noc individ PT EDUCATION NOC INDIVID Procedures Routine 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) Ordered: 10/14/2023 [facility] Comment on above: Ordered: 10/14/2023 Radionuclide imaging of perfusion of myocardium under exercise stress [facility] SURGICAL PATHOLOGY SURGICAL PATH OLOGY Lab Routine Abnormal mammogram 09/25/2023 1:12 PM EDT [facility] Work Phone: SURGICAL PATHOLOGY [facility] Work Phone: Comment on above: Release Upon Orderin g for 1 Occurrences starting 11/07/2023, 1 completed SURGICAL PATHOLOGY [facility] Work Phone: Comment on above: Release Upon Orderin g for 1 Occurrences starting 11/08/2023, 1 completed End: 07-31-2025 US Abdomen US SOFT TISSUE ABDOMEN Radiology STAT Soft tissue mass History of breast cancer 1 Occurrences starting 07/01/2024 until 07/31/2025 [facility] Work Phone: Comment on above: 1 Occurrences starti ng 07/01/2024 until 07/31/2025 End: 09-21-2024 US Breast - left limited US BREAST LTD LEFT Radiology Routine Inconclusive mammogram 1 Occurrences starting 08/23/2023 until 09/21/2024 [facility] Comment on above: 1 Occurrences starti ng 08/23/2023 until 09/21/2024 End: 10-03-2023 XR HAND GENERAL 3V PA/LAT/OBL RIGHT XR HAND GENERAL 3V PA/LAT/OBL RIGHT Radiology Routine Pain of right hand 1 Occurrences starting 09/03/2022 until 10/03/2023 [facility] Work Phone: Comment on above: 1 Occurrences starti ng 09/03/2022 until 10/03/2023 XR HAND GENERAL 3V PA/LAT/OBL RIGHT XR HAND GENERAL 3V PA/LAT/OBL RIGHT Radiology Routine Pain of right hand 09/03/2022 7:36 PM EDT [facility] Work Phone: End: 11-04-2025 XR Lumbar spine 3 Views XR LUMBAR GENERAL 3V AP/LAT/L5-S1 Radiology Routine Lumbar pain Malignant neoplasm of lower-inner quadrant of left breast in female, estrogen receptor negative (HCC) 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) 1 Occurrences starting 10/05/2024 until 11/04/2025 [facility] Work Phone: Comment on above: 1 Occurrences starti ng 10/05/2024 until 11/04/2025 XR Lumbar spine 3 Views XR LUMBA R GENERAL 3V AP/LAT/L5-S1 Radiology Routine Lumbar pain Malignant neoplasm of lower-inner quadrant of left breast in female, estrogen receptor negative (HCC) 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) 10/05/2024 8:51 AM EDT [facility] Immunizations Immunization Date Immunization Notes Care Provider [facility] 12-20-2023 COVID-19 vaccine, ag e 12+ yr (PFIZER-BIONTECH COMIRNATY) Audie Hemphill Work Phone: [facility] 12-20-2023 influenza, high dose seasonal, preservative-free Luna Cope MD Work Phone: [facility] 12-20-2023 Seasonal trivalent influenza vaccine, adjuvanted, preservative free Audie Hemphill Work Phone: [facility] 12-20-2023 influenza virus vacc ine, unspecified formulation Luna Cope MD Work Phone: [facility] 08-14-2023 COVID-19 vaccine, ag e 12+ yr, season (PFIZER-BIONTECH) Luna Cope MD Work Phone: [facility] 02-13-2023 COVID-19 vaccine, ag e 12+ yr, season (PFIZER-BIONTECH) uLna Cope MD Work Phone: [facility] 12-17-2022 influenza (aIIV4) vaccine, age 65+ yr, quadrivalent, PF (FLUAD QUAD) Luna Cope MD Work Phone: [facility] Work Phone: 12-17-2022 influenza, high dose seasonal, preservative-free Crystal Fuentes RN [facility] 12-17-2022 influenza virus vacc ine, unspecified formulation Crystal Fuentes RN [facility] 01-09-2022 influenza (aIIV4) vaccine, age 65+ yr, quadrivalent, PF (FLUAD QUADRIVALENT) Luna Cope MD Work Phone: [facility] 12-29-2021 COVID-19 booster vaccine, age 12+ yr, bivalent (MODERNA) Luna Cope MD Work Phone: [facility] 01-30-2021 influenza, high-dose , quadrivalent vaccine (FLUZONE HIGH DOSE QUADRIVALENT) Luna Cope MD Work Phone: [facility] 01-23-2021 COVID-19 vaccine, fu ll dose (MODERNA) Luna Cope MD Work Phone: [facility] 11-17-2020 zoster vaccine recombinant Luna Cope MD Work Phone: [facility] 07-18-2020 zoster vaccine recombinant Luna Cope MD Work Phone: [facility] 06-09-2020 COVID-19 vaccine, fu ll dose (MODERNA) Luna Cope MD Work Phone: [facility] 05-12-2020 COVID-19 vaccine, fu ll dose (MODERNA) Luna Cope MD Work Phone: [facility] 02-15-2020 pneumococcal polysaccharide vaccine, 23 valent Luna Cope MD Work Phone: [facility] 01-14-2020 influenza (aIIV4) vaccine, age 65+ yr, quadrivalent, PF (FLUAD QUADRIVALENT) Luna Cope MD Work Phone: [facility] 01-14-2020 influenza, high dose seasonal, preservative-free Luna Cope MD Work Phone: [facility] 03-02-2019 tetanus toxoid, redu anita diphtheria toxoid, and acellular pertussis vaccine, adsorbed Luna Cope MD Work Phone: [facility] 02-06-2019 influenza, high dose seasonal, preservative-free Luna Cope MD Work Phone: [facility] 01-17-2018 influenza, high dose seasonal, preservative-free Luna Cope MD Work Phone: [facility] Work Phone: 01-17-2018 influenza, injectabl e, quadrivalent, preservative free Luna Cope MD Work Phone: [facility] 05-21-2017 pneumococcal conjuga te vaccine, 13 valent Luna Cope MD Work Phone: [facility] 03-26-2017 influenza, injectabl e, quadrivalent, contains preservative Luna Cope MD Work Phone: [facility] 11-28-2015 zoster vaccine, live Luna Cope MD Work Phone: [facility] 12-27-[address] Luna Cope Work Phone: [facility] 12-27-2014 influenza, seasonal, injectable, preservative free Luna Cope MD Work Phone: [facility] Work Phone: 12-30-2010 influenza virus vacc ine, unspecified formulation Luna Cope MD Work Phone: [facility] Work Phone: 03-04-2008 influenza virus vacc ine, unspecified formulation Luna Cope MD Work Phone: [facility] 11-11-2006 tetanus toxoid, redu anita diphtheria toxoid, and acellular pertussis vaccine, adsorbed Luna Cope MD Work Phone: [facility] Work Phone: Payers Date Payer Category Payer Self-pay [id number] 2016 Medicare MEDICARE MEDICAR E A AND B [id number] 2016-Present [phone] [address] [address] [place] [address] Medicare [id number] 2016 Medicare [id number] 2016 Private Health Insurance [facility] AARP SUPPLEMENT [id number] 2016-Present [phone] [address] [place] [address] Indemnity [id number] 2016 Private Health Insurance [id number] 2016 Medicare [id number] 2016 Unknown [id number] Unknown [id number] Unknown [id number] Unknown [id number] Unknown [id number] Unknown [id number] Unknown [id number] Unknown [id number] Social History Date Type Detail Facility Start: 02-05-2022 End: 01-03-2024 Tobacco smoking status NHIS Never smoked tobacco [facility] Start: 04-03-2021 End: 10-05-2024 Alcohol intake Current drinker of alcohol (finding) [facility] Start: 1950 Sex Assigned At Female [facility] Start: 06-09-2021 End: 02-05-2022 Exposure to SARS-CoV-2 (event) Not sure [facility] Start: 09-11-2021 End: 09-11-2021 Tobacco smoking status NHIS Unknown if ever smoked [facility] Work Phone: Start: 05-20-2015 None [facility] Start: 05-20-2015 Spouse/ Significant Other [facility] Start: 05-20-2015 Non-smoker [facility] Start: 02-05-2022 Tobacco use and exposure Smokeless tobacco non-user [facility] Start: 10-13-2022 End: 06-03-2024 History of Social function [facility] Work Phone: Start: 10-13-2022 End: 06-03-2024 Tobacco use panel [facility] Work Phone: Adult Depression Screening Assessment 1 [facility] Work Phone: Start: 04-25-2021 Sexual orientation Heterosexual (finding) [facility] Has the [employer], or [employer] threatened to shut off services in your home in past 12Mo No [facility] Do you belong to any clubs or organizations such as confucianism groups, unions, fraternal or athletic groups, or school groups? Yes [facility] Are you now , , , , never or living with a partner? [facility] How often to you hav e a drink containing alcohol? Never [facility] Do you feel stress - tense, restless, nervous, or anxious, or unable to sleep at night because your mind is troubled all the time - these days [OSQ] Only a little [facility] (I/We) worried wheth er (my/our) food would run out before (I/we) got money to buy more. Never true [facility] Medical Equipment Procedure Code Equipment Code Equipment Origin al Text Equipment Identifier Dates Norma Learning Facilitator Reflector [id number] Sta rt: 10-23-2023 [employer] [id number] Start: 11-07-2023 Goals Date Patient Goal Desired Activity /State Personal health goal Comment on above: Formatting of this n ote might be different from the original. Patient will record weight weekly and notify physician if weight gain > 3 pounds (daily). Personal health goal Comment on above: Formatting of this n ote might be different from the original. Patient has the following High Blood Pressure/Hypertension Goals: Patients specific blood pressure target:140/90 HTN Education given and reviewed with patient --sent on 02/12/23 Checking your Blood Pressure at Home and Your Sodium-Controlled Diet Patient will meet these goals by 03/31/2023 (describe interventions done by P[facility]) 02/12/2023-reviewed low sodium diet Comment on above: Formatting of this n ote might be different from the original. Patient will record weight weekly and notify physician if weight gain > 3 pounds (daily). Functional Status Date Assessment Result Facility 08-22-2024 Total score [AUDIT-C] 0 08/23/19 10:57 AM EDT User, Fredrickhart [facility] 08-22-2024 How often to you hav e a drink containing alcohol? Never 08/22/2024 10:57 AM EDT User, Mychart Never [facility] 08-22-2024 Functional status Patient does n ot drink 08/22/2024 10:57 AM EDT User, Fredrickhart Patient does not drink [facility] 08-22-2024 How often do you hav e 6 or more drinks on 1 occasion? Never 08/22/2024 10:57 AM EDT User, Fredrickhart Never [facility] 04-05-2021 Are you deaf, or do you have serious difficulty hearing No 04/05/2021 4:49 PM Layla Padgett, ABIEL No [facility] 04-05-2021 Are you blind, or do you have serious difficulty seeing, even when wearing glasses No 04/05/2021 4:49 PM Layla Padgett, RN No [facility] 04-05-2021 Do you have serious difficulty walking or climbing stairs No 04/05/2021 4:49 PM Layla Padgett, RN No [facility] 04-05-2021 Do you have difficul ty dressing or bathing No 04/05/2021 4:49 PM Layla Padgett, RN No [facility] 04-05-2021 Because of a physica l, mental, or emotional condition, do you have difficulty doing errands alone such as visiting a physician's office or shopping No 04/05/2021 4:49 PM Layla Padgett, RN No [facility] Mental Status Date Assessment Result Facility 04-05-2021 Because of a physica l, mental, or emotional condition, do you have serious difficulty concentrating, remembering, or making decisions No 04/05/2021 4:49 PM Layla Padgett RN No [facility] Clinical Notes 04-05-2021 to 10-08-2024 Note Date & Type Note Facility 10-08-2024 Evaluation note Diagnosis Onset Date Resolution Chest pain, unspecified chronic J kim 2024 11:12am Essential hypertension chronic Ju ly 2024 11:12am Nonrheumatic mitral (valve) prolapse chronic October 08, 2024 11:12am Pure hypercholesterolemia chronic October 08, 2024 11:12am [facility] Work Phone: 1(386) 640-814407-07-[facility] History of Present illness Narrative* Luna Cope MD - 10/05/2024 12:03 PM EDT Radha Witt is a 74-year-old female with a history of breast cancer, presenting for evaluation of low back pain. HPI Low Back Pain: - Chronic low back pain, with current episode persisting for at least one month. - Pain is primarily central, with radiation around the right side of the waist. - No radiation to legs or hips; denies paresthesia. - Suspects onset after lifting a 5-gallon gas can. - Denies hearing or feeling any crack or pop during the incident. - Aggravated by prolonged sitting, leading to stiffness and discomfort. - Taking acetaminophen occasionally for pain relief. - Has cyclobenzaprine 5 mg BID PRN at home but has not used it. Urge Incontinence: - Noted increase in urge incontinence recently. - Denies complete loss of control. Breast Cancer: - History of breast cancer; recent MRI in May and mammogram in July showed no evidence of disease. - Completed all treatments; currently under surveillance. - Radha has lymphedema in the left arm; advised to avoid blood pressure measurements, lab draws, and IVs on that side. MEDICATIONS: Current Outpatient Medications Medication Sig predniSONE (DELTASONE) 20 mg tablet Take 1 tablet by mouth once daily for 5 days. cyclobenzaprine (FLEXERIL) 5 mg tablet Take 1 tablet by mouth two times a day as needed. acetaminophen 300 mg-caffeine 40 mg-butalbital 50 mg (FIORICET) per capsule Take 1 capsule by mouthevery 4 hours as needed for headache. aspirin, enteric coated (ASPIRIN, ENTERIC COATED) 81 mg EC tablet Take 81 mg by mouth once daily. acetaminophen (TYLENOL) 325 mg tablet Take 2 tablets by mouth every 4 hours as needed for pain. ZINC ORAL Take 50 mg by mouth once daily. calcium carbonate/vitamin D3 (CALCIUM 600 + D ORAL) Take 1 tablet by mouth four times daily. atorvastatin 10 mg tablet Take 10 mg by mouth once daily. metoprolol succinate XL (TOPROL XL) 50 mg ORAL 24 hr tablet Take 1 tablet by mouth once daily. MULTIVITAMIN TABLET Take 1 tablet by mouth once daily. No current facility-administered medications for this visit. ALLERGIES: ALLERGIES Allergen Reactions Adhesive Rash bandaids Tetracyclines Rash PAST MEDICAL HISTORY Diagnosis Date Abnormal mammogram of left breast 08/22/2023 08/27/23 abnormal diagnostic left breast ultrasound. 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 Difficult intravenous access 04/03/2021 Diverticulitis of colon (without mention of hemorrhage)(562.11) Essential hypertension, benign on Toprol Female stress incontinence Migraine with aura, without mention of intractable migraine without mention of status migrainosus Nonspecific (abnormal) findings on radiological and other examination of gastrointestinal tract PAST SURGICAL HISTORY Procedure Laterality Date BREAST SURGERY HX biopies as teenager and early 30s, small lumpectomy BX BREAST W/DEVICE 1ST LESION STEREOTACTIC GUID Right 01/31/2017 Benign microcalcifications and a fibroadenoma BX OF BREAST; INCISIONAL 2023 COLON SURGERY HX 04/04/2021 LAPAROSCOPIC COLECTOMY SIGMOID COLON W/ COLORECTAL ANASTOMOSIS COLONOSCOPY FLX DX W/COLLJ SPEC WHEN PFRMD 12/20/2006 COLONOSCOPY FLX DX W/COLLJ SPEC WHEN PFRMD 12/20/2016 Colonoscopy COLONOSCOPY FLX DX W/COLLJ SPEC WHEN PFRMD 03/16/2021 PAST SURGICAL HISTORY OF breast biopsies x 2 SKIN BIOPSY HX TONSILLECTOMY PRIMARY/SECONDARY <AGE 14 TOTAL ABDOMINAL HYSTERECT W/WO RMVL TUBE OVARY Hysterectomy, NEO uterine cancer US BREAST NEEDLE CORE BIOPSY LT Left 09/2023 FAMILY HISTORY Problem Relation Age of Onset Cancer Mother uterine Heart Mother Heart Father Hypertension Father Diabetes Father type II other (Multiple myloma) Father other (Fistula) Maternal Grandmother other (Hemochromatosis) Paternal Uncle Anesthesia Problems No Family History Social History Tobacco Use Smoking status: Never Smokeless tobacco: Never Vaping Use Vaping status: Never Used Substance Use Topics Alcohol use: Yes Comment: rare Drug use: No Reviewed current medications, allergies, past medical history, surgical history, family history andsocial history today. REVIEW OF SYSTEMS Cardiovascular: (-) chest pain Respiratory: (-) shortness of breath Gastrointestinal: (-) abdominal pain, (-) bowel incontinence Genitourinary: (+) urge urinary incontinence, (-) dysuria, (-) urinary frequency Musculoskeletal: (+) right-sided low back pain, (+) lumbar stiffness, (-) radicular pain Neurological: (-) lower extremity numbness, (-) lower extremity tingling HEALTH MAINTENANCE: Reviewed health maintenance issues today and recommended the following in detail. There are no preventive care reminders to display for this patient. LAB REVIEWED: Imaging: (July) Mammogram: No evidence of malignancy (May) MRI: No evidence of malignancy VITALS: BP 104/68 Pulse 65 Wt 74.8 kg (165 lb) LMP 04/07/2004 SpO2 95% BMI 24.44 kg/m Last 4 Encounter Wt Readings: Date: Wt: 10/05/2024 74.8 kg (165 lb) 08/28/2024 73.5 kg (162 lb) 07/01/2024 74.4 kg (164 lb) 06/23/2024 74.4 kg (164 lb) PHYSICAL EXAMINATION: GENERAL: NAD, alert and oriented. SKIN: Unremarkable, no rash or skin lesions. BACK: Mild tenderness in lumbar region. Full range of motion. NEURO: Awake, alert and oriented x3, cranial nerves II-XII grossly intact, normal gait, no involuntary motions. Negative straight leg raise bilaterally. Sensation intact. Reflexes normal. ASSESSMENT AND PLAN 1. Lumbar pain (M54.50) - Chronic low back pain, exacerbated approximately one month ago, likely due to lifting a heavy object. - Pain is primarily central, with radiation to the right side; no radicular symptoms, numbness, or tingling reported. - Mild tenderness in the lumbar region on examination; negative straight leg raise test bilaterally; full range of motion maintained. - Ordered lumbar spine X-ray to evaluate for any structural abnormalities. - Prescribed prednisone 20 mg orally once daily for 5 days to reduce inflammation and pain. - Advised use of cyclobenzaprine 5 mg orally BID PRN for muscle relaxation. - Recommended application of moist heat or alternating heat and ice to the affected area. - Follow-up in two weeks or sooner if symptoms worsen or if new neurological deficits develop. 2. Essential hypertension, benign (I10) - Blood pressure well-controlled; no adjustments to current management necessary. 3. Other hyperlipidemia (E78.49) - No discussion during this visit. 4. Malignant neoplasm of lower-inner quadrant of left breast in female, estrogen receptor negative (HCC) (C50.312) 5. 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) (C50.919) - Recent MRI in May and mammogram in July showed no evidence of cancer recurrence. - All treatments completed; currently under surveillance. - Discussed obtaining a medical alert bracelet indicating No blood pressure, no lab draws, no IVs on left side due to previous lymph node dissection. (See patient after visit summary for additional instructions to patient) Luna Cope MD Recording using [employer] software for draft documentation of the visit was discussed with the patient/authorized corporate sales representative; all questions welcomed and answered. Patient/authorized corporate sales representative agreed to proceed [facility] History of Present illness Narrative* Prashanth Koroma RT(R) - 10/05/2024 8:40 AM EDT Radiology Service Progress Note PATIENT NAME: Radha Witt DATE OF SERVICE: October 05, 2024 TIME: 8:45 AM PATIENT IDENTITY VERIFICATION COMPLETED USING TWO (2) IDENTIFIERS: Name and Date of confirmedby patient verbally. FALL SCREENING: Has the patient had 2 falls in the last year or 1 fall with injury or currently using an Ambulatory Assistive Device (Walker, Cane, Wheelchair, Crutches, etc.)? No PATIENT GENDER DATA: Assigned female at . status: : No status:NO. PATIENT RELEVANT IMPLANT DATA REVIEWED: Not Applicable PATIENT PRESENTS WITH AN IMPLANTABLE OR ATTACHED CONSTRUCTION ESTIMATOR: No RADIOLOGY DEPARTMENT: General X-ray: Exam(s) Completed: Spine X-Ray(s): Lumbar AP / LAT / L5-S1 PERIPHERAL IV DATA: Not applicable SIGNED BY: RT Brandon(R) October 05, 2024 8:45 AM documented in [facility]25 [facility] Instructions* Patient Instructions* Luna Cope MD - 10/05/2024 8:35 AM EDT - A 5-day course of prednisone 20 mg once daily has been prescribed; scrap picker at [facility] in [place]. - Continue using cyclobenzaprine 5 mg twice daily as needed for muscle tightness or if pain interferes with sleep. - Apply moist heat or ice to your lower back, alternating to help relieve pain and stiffness. - Receive a lumbar spine x-ray today before you leave the clinic. - Obtain a medical alert bracelet engraved with No blood pressure, lab draws, or IVs on left side. You can order one online or visit local [employer] in [place]. - If your back pain worsens, you develop new numbness, tingling, or weakness, or if you don t notice improvement in about two weeks, contact our office. documented in this [facility]06-23-2025 Instructions* Patient Instructions* Freddie Rocha, PhD - 09/21/2024 11:36 AM EDT Images from the original note were not included. PSYCHOLOGY SERVICES [facility] WE WANT YOU TO BE INFORMED YOUR PSYCHOLOGY PROVIDER AT THE [facility]: Freddie Rocha, Ph.D. is a licensed psychologist in the State of [place]. The psychology license is a guarantee that your services are being delivered or supervised by a professional meeting doctoral level standards of training in psychology and professional levels of practice, and is subject to regulation by the [facility] Board of Psychology, which requires that you be presented with this informed consent statement [[facility] (7)(a)(1)]. SERVICES: Psychologists at the [facility] work with your team to provide evaluation and treatment for emotional distress, physical distress associated with emotional concerns, behavioral coping, and other psychological issues related to breast cancer and hereditary risk for cancer. Psychologists in the [facility] do not provide emergency services after 5:00 pm or via telehealth technology. Emergency contact before 8:00 a.m., after 5:00 p.m., or on weekends and holidays may be accessed at: [phone], ask to speak to the supervisor residential fashion editor; call 911; or go to the nearest emergency room. FEES: When you receive psychological treatment, you will be billed for services under the name of the psychologist who will be responsible for the services. PLEASE ASK QUESTIONS YOU MAY HAVE ABOUT PROCEDURES, FEES OR QUALIFICATIONS OF THE PSYCHOLOGIST. Any questions about fees, co-pay or coverage may be directed to the Financial Counselor at [phone]. You should check with your insurance provider regarding your responsibility for mental health coverage and any pre- authorization that may be needed. CONTACT: Your provider is: Freddie Rocha, Ph.D.. The primary phone number to reach your provider is or . Contact via email, pagers and cell phones are not secure and are not regularly maintained. Similarly, we do not interact with patients over social media. All contacts should be via the numbers provided above or through 20x200 messages (a secure messaging platform through your medical record). For follow-up appointments, call [phone]. 24-hour notice is required for cancellation. CONFIDENTIALITY: Your evaluation in the [facility] is part of your [facility] medical record and is protected by federalprivacy laws. Other [facility] team members and relevant [facility] caregivers involved inyour care have access to your records and may discuss your case; other providers who are not involved in your care should not be accessing your record under federal law. Otherwise, all matters discussed by you and the psychologist will be confidential unless you consent to their disclosure EXCEPT in the following circumstances: information may be shared in confidence with other professionals whomthe psychologist may consult in your best interest; the records of the psychologist may be subject to court order by and disclosure to a court of law under certain defined circumstances; and disclosure of information may occur if the psychologist deems it necessary to protect from serious harm either you or someone whom you deliberately threaten. In addition, the psychologist has the duty to report suspected injury or neglect of a child, suspected abuse of an adult, and to note knowledge or belief of domestic violence in client records. PLEASE ASK ANY QUESTIONS YOU HAVE ABOUT CONFIDENTIALITY. GROUP THERAPY AND SHARED APPOINTMENTS: As part of your treatment at the [facility], you may participate in group- based psychotherapy orshared visits. The confidentiality of the information you share in these visits will be limited by the group setting. As members of the group, we ask that you keep others' private information as confidential as possible. RELEASE OF INFORMATION: If you would like a copy of your records, please contact [employer] at [phone]. By signing this form, you acknowledge that your provider has obtained your informed consent for treatment or evaluation prior to proceeding with the provision of services. You also agree that your provider informed you of the extent and nature of the services available to you as well as the limits,rights, opportunities, and obligations associated with the services to be provided. Patient Date Freddie Rocha, Ph.D. Licensed Psychologist VIRTUAL VISIT INFORMED CONSENT Welcome to the [facility]. This statement of understanding has been prepared tohelp explain policies and procedures related to electronic services or virtual visits provided by psychologists. A few important points to consider BEFORE your first appointment: It is best to try out the technology at least one day before your visit to make sure your camera and microphone work and you understand how to check in. Filling out questionnaires and forms online inadvance will help the process go more quickly and give you more time with your psychologist. You must be in quiet, private space for your appointment, preferably seated comfortably. Just like any other medical appointment, you should arrange appropriate childcare and avoid multitasking to get the most out of your appointment. Make sure you have adequate Wifi/cell coverage to complete a streaming video visit. You must be in the state [facility] for your virtual visit unless you have confirmed in advance that your provider is licensed in the state you are present in during the visit (i.e., psychologists are licensed by [facility] and your provider is only licensed in [place]). Under no circumstances should you operate a motor vehicle during a virtual visit. If you experience technical difficulties, please contact Technical Services at [phone] or ; For other communication contact [phone] or [phone]. Please be patient. Just like any other medical appointment, your provider may be delayed by a few minutes by other patient issues. If you are waiting for more than 10 minutes, try calling the contactnumbers above to check on your provider's status. As a client receiving psychological services through telepsychology methods, you understand: 1. This service is provided by technology (including but not limited to video, phone, text, and email) and may not involve direct, face to face, communication. There are benefits and limitations to this service. You will need access to, and familiarity with, the appropriate technology to participate in the service provided. Exchange of information will not be direct and any paperwork exchanged will likely be exchanged through electronic means or through postal delivery. 2. If a need for direct, face to face services arises, it is your responsibility to contact providers in your area or to contact this office for a face to face appointment. You understand that an opening may not be immediately available. 3. You may decline any telepsychology services at any time without jeopardizing your access to future care, services, and benefits. 4. These services rely on technology, which allows for greater convenience in service delivery. There are risks in transmitting information over the internet that include, but are not limited to, breaches of confidentiality, theft of personal information, and disruption of service due to technical difficulties. While specific encryption measures have been taken by the [facility] to protect the information that will be communicated between you and your provider, the privacy and confidentiality of computer mediated communication cannot be 100% guaranteed. Your provider will take every measure to safeguard your information, but you should be aware that there is a very small chance the inf ormation may be stolen from transmission between yourself and the provider. 5. Also, if you decide to save the information discussed in your virtual online visit to your computer as a transcript, you are encouraged to take steps to ensure this information remains confidential. Possible breaches to your privacy could occur if another individual(s) has access to your computer. 6. Additionally, psychologists have a duty to warn if there is an indication that the patient is a danger to themselves or others, thus the local, ten-digit emergency services number for your community must be identified, as well as a personal contact for emergencies: we will confirm your location and emergency contact confirmed in your chart. 7. Virtual visits provide many conveniences and advantages for patients. However, no all issues or problems are clinically appropriate for online services. Your provider may recommend the provision of [id number] services for specific issues. The provider and the patient will regularly reassess the appropriateness of continuing to deliver services through the use of technology. 8. To ensure patient safety and privacy, you will do your best to participate in the virtual visit from a private location. If you wish to have others involved in your visit, these individuals will be asked to sit within view of the camera so the provider is aware of who is participating. Your verbal consent to have them present will be documented in your record. In return, your provider will confirm your permission in advance for any other person to be present in your video visit (i.e., student/observer). 9. In the event of disruption of service, or for routine or administrative reasons, it may be necessary to communicate by other means: 1) should service be disrupted contact Technical Services [phone] or 2) For other communication contact [phone] or [phone]. Your psychologist may utilize alternative means of communication (i.e., phone call) in the following circumstances: technical disruption. 10. Virtual visits should not be used for emergency medical or mental health needs. In emergency situations call [phone] and ask to speak to the supervisor residential fashion editor, go to the nearest emergency room, or call [phone]. Your psychologist will respond to communications and routine messages within 72 hours. 11. It is your responsibility to maintain privacy on the client end of communication. Insurance companies, those authorized by the client, and those permitted by law may also have access to records or communications. Secure messaging through [employer] ensures that your communications are directed only to your psychologist or other individuals on your care team. Communications exchanged with your psychologist will be stored in the following manner: documented in your medical chart. Your sessions with your provider are NOT recorded and stored. 12. The laws and professional standards that apply to in-person psychological services also apply to telepsychology services. This document does not replace other agreements, contracts, or documentation of informed consent. ADDITIONAL RESOURCES & INFORMATION National Suicide Prevention Lifeline (available 24 hours per day, 7 days per week): 7-723-614-TALK (3855), TYY: , http://suicidepreventionlifeline.org National Domestic Violence Hotline (available 24 hours per day, 7 days per week): 4-893-977-SAFE (7233), TYY: , http://www.[employer]IV[employer].org/ [facility] 211 for Help [facility] https://[email or web address] [place] Sexual Assault Hotline and Online Chat (available 24 hours per day, 7 days per week): 6-621-296-HOPE (9734), http://www.[employer].org For individuals in [place], [place], the Suicide Prevention, Mental Health Crisis, Informationand Referral Hotline & Mobile Crisis Team (available 24 hours per day, 7 days per week): 971.517.1526 For individuals in [place], [place], the [facility] Crisis Hotline (available 24 hours per day, 7 days per week): For individuals in [place], [place], the Crisis and Suicide Support Hotline (available 24 hours per day, 7 days per week): 521.225.2461 To view the websites for our providers' licensure boards, please visit the [place] Board of Psychology website at: https://psychology.[place].gov/. To verify the [place] licensure of our providers, please visit [place]'s Professional Licensure website at: https://elicense.[place].gov/ Releases of Information, Health Data Services: [phone]. For questions about fees, contact financial counselor at [phone] For appointments with Psychology Services at the [facility]: [phone] For technical difficulties, contact Technical Services at [phone] or documented in this encounterMercy [facility] Hospital06-23-2025 NoteS[facility]06-[facility] History of Present illness Narrative* Freddie Rocha, PhD - 09/21/2024 11:22 AM EDT [facility]AV[facility]ALTH EVALUATION DATE OF SERVICE: 09/21/2024 TIME OF SERVICE: 10:30/11:20 SUMMARY (for full evaluation see below): IMPRESSIONS: 1)The patient has mild anxiety in adjustment to/exacerbated by breast cancer. 2) Patient strengths include intact supports and existing coping tools. 3) Symptom management issues include anxiety and insomnia. 4) Stressors and complicating factors include care-taking for . TREATMENT PLAN AND RECOMMENDATIONS: 1) Individual psychotherapy for anxiety and insomnia. 2) Continue to use strengths such as intact supports and existing coping tools. 3) Continue psychotropic medication management 4) Treatment targets include anxiety and insomnia. 5) Practice relaxation strategies. Provided link to relaxation tracks including deep breathing, muscle relaxation, and healing after surgery: www.ccf.org/breastcancerrelaxation 6) Provided resources for sleep hygiene and guided meditation for sleep. CPT CODE: 32124 Psychiatric diagnostic evaluation BILLING CODE: GENS BRCR PSYL MAIN TO/ DATE OF FIRST SERVICE THIS CYCLE:09/21/2024 SESSION #: 1 The patient signed the Informed Consent for Psychological Evaluation & Care Form, and the guardian hospital health care insurance benefits, fees for service, emergency procedures, and the limits of confidentiality that may pertain with any given case were discussed with the patient. Ms. Radha Wittwas given a copy of the consent form. The patient was determined to be appropriate for telehealth treatment, including having a designated private space for appointments, appropriate technology and connectivity, and an emergency plan forsfort yates hospital management. The patient may choose to continue care through telehealth for future visits. IDENTIFYING INFORMATION: Ms. Radha Witt is a 74 year old female. She was referred by Pk Ramsey PA-C from the [facility]. Ms. Witt was referred for psychological counseling. COLLATERAL PARTIES PRESENT: none. 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 Final pathology reports 7mm of IDC, margins clear, Grade 3, 0/3 LN, -LVI Triple negative pT1b, N0 She initially presented on 10/11/2023 with a LEFT breast 1.1 cm mass @ 8:00, 6 cm FN. Bx (bar clip) shows IDC. LN appear normal ER-DE-HER2- [id number] History uterine cancer NEO BSO 2-3 No clinical or Breast MRI evidence of disease process today. MOTIVATION/UNDERSTANDING/EXPECATIONS: Pt has a prior history of psychological counseling services. We discussed the nature and scope of this counseling work and pt was able to articulate informed and realistic expectations of this counseling episode. 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 acetaminophen 300 mg-caffeine 40 mg-butalbital 50 mg (FIORICET) per capsule Take 1 capsule by mouthevery 4 hours as needed for headache. aspirin, enteric coated (ASPIRIN, ENTERIC COATED) 81 mg EC tablet Take 81 mg by mouth once daily. acetaminophen (TYLENOL) 325 mg tablet Take 2 tablets by mouth every 4 hours as needed for pain. ZINC ORAL Take 50 mg by mouth once daily. calcium carbonate/vitamin D3 (CALCIUM 600 + D ORAL) Take 1 tablet by mouth four times daily. atorvastatin 10 mg tablet Take 10 mg by mouth once daily. metoprolol succinate XL (TOPROL XL) 50 mg ORAL 24 hr tablet Take 1 tablet by mouth once daily. MULTIVITAMIN TABLET Take 1 tablet by mouth once daily. No current facility-administered medications for this visit. ALLERGIES: ALLERGIES Allergen Reactions Adhesive Rash bandaids Tetracyclines Rash MENTAL HEALTH HISTORY: She has attended counseling in the past for insomnia. Ms. Witt has never been an inpatient for a psychiatric reason. The patient has no previous suicide attempts. The patient has no history of self-injurious behavior. The patient notes the following family history: possible addiction issues in extended family. The patient denies a history of physical, sexual, or emotional abuse. The following psychiatric symptoms are noted: Depression: Denies any current symptoms of depression Bia: Denies any history of hypomanic or manic episodes. Psychosis: Denies any hallucinations or delusions. Generalized Anxiety Disorder: experiences episodic anxiety re medical procedures and reports fear of recurrence Panic: Denies any symptoms of panic. Obsessive Compulsive Disorder: Denies any symptoms of OCD. Post-Traumatic Stress Disorder: Denies any PTSD symptoms PSYCHOLOGY SCREENING/TESTIN03/02/2024 08/28/2024 PHQ-9 All Questions Little interest or pleasure in doing things: 1 0 Feeling down, depressed, or hopeless: 1 0 (0-4) minimal depression, (5-9) mild depression, (10-14) moderate depression, (15-19) moderately severe depression, (20-27) severe depression 08/22/2024 08/28/2024 ELIZABETH-7 All Questions Feeling nervous, anxious, or on edge Not at all Not at all Not being able to stop or control worrying Not at all Not at all Worrying too much about different things Not at all Not at all Trouble relaxing Not at all Not at all Being so restless that it is hard to sit still Not at all Not at all Becoming easily annoyed or irritable Not at all Not at all Feeling afraid, as if something awful might happen Not at all Not at all ELIZABETH-7 Score 0 0 (0-4) minimal anxiety, (5-9) mild anxiety, (10-14) moderate anxiety, (15-21) severe anxiety SUBSTANCE USE: Alcohol Use Disorder Identification Test-C: How often do you drink Alcohol? 0 (Never); How many drinks containing alcohol do you have on a typical day when you are drinking? 0 ( = 1 or 2); How often do you have 5 or more drinks on one occasion: 0 (Never). AUDIT-C = 0 negative The patient denies current drug use.. The patient does not report social/occupational/legal consequences associated with drug or alcohol use. The patient is a nonsmoker. FAMILY OF ORIGIN: She was raised by parents. She described his childhood as normal. The patient had 1 sibling. The patient's immediate family is . She has three cousins. She is currently semi - close with her family. The patient reports a family history of cancer/BRCA. MARITAL FAMILY/SIGNIFICANT RELATIONSHIPS: Ms. Witt is . She has two step-children, grandchildren and great-grandchildren. The patient s significant other is supportive. She describes her family life as good. Other social supports include extended family, confucianism community, and friends The patient reports that her social supports are supportive. 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 CURRENT STRESSORS: The patient reports the following stressors: medical problems and 's medical problems. COPING STRATEGIES: The patient reports the following coping strategies: spirituality, staying busy, and participating in clubs. These coping strategies have been partially effective. The patient notes baptist practice is: Lutheran . The patient's cultural identity/ethnicity is: . LEISURE/EXERCISE: The patient's hobbies include volunteering and being in clubs. SLEEP/APPETITE: The patient reports problems falling asleep: No The patient reports problems staying asleep:Yes The patient reports the following quality of sleep:poor Total sleep time: variable hours. Pt reports normal appetite. She attends a weight loss group in her community. BODY IMAGE/SEXUALITY: Will continue to assess in counseling. MENTAL STATUS EXAMINATION: Appearance: well-groomed Eye contact: normal Rapport: easy. Orientation: alert and oriented in all spheres (time, person, place, situation, object) Approach to evaluation/attitude toward examiner: cooperative Mood: calm Affect: appropriate. Self worth: average. Body Image: Within Normal Limits Suicidal/homicidal ideation: Pt denied suicidal/homicidal ideation, plan and intent. Recall/Memory: normal Attention: normal Concentration:Normal Speech: within normal limits with regard to rate, tone and volume Psychomotor activity: average. Thought process: no evidence of formal thought disorder. Abstract thinking: normal. Though content: within normal limits Hallucinations/Illusions: none Intellectual functioning: average. Insight: intact Judgment: normal PROVISIONAL DIAGNOSTIC IMPRESSION Primary Diagnoses: Adjustment Disorder with intermittent anxiety Insomnia Psychological Factors Affecting Breast Cancer Personality Diagnoses:No diagnosis Global Assessment of Functionin-61 Some mild symptoms or some difficulty in social, occupational, or school functioning, but generally functioning pretty well. IMPRESSIONS: 1)The patient has mild anxiety in adjustment to/exacerbated by breast cancer. 2) Patient strengths include intact supports and existing coping tools. 3) Symptom management issues include anxiety and insomnia. 4) Stressors and complicating factors include care-taking for . TREATMENT PLAN AND RECOMMENDATIONS: 1) Individual psychotherapy for anxiety and insomnia. 2) Continue to use strengths such as intact supports and existing coping tools. 3) Continue psychotropic medication management 4) Treatment targets include anxiety and insomnia. 5) Practice relaxation strategies. Provided link to relaxation tracks including deep breathing, muscle relaxation, and healing after surgery: www.ccf.org/breastcancerrelaxation 6) Provided resources for sleep hygiene and guided meditation for sleep. Above recommendations and treatment plan will be communicated back to the referring physician by way of the shared medical record. Thank you for this referral. Please feel free to call or page with any questions. Freddie Rocha PhD Psychologist, Breast Center Pager [phone] documented in this encounterMercy Memorial Hospital05-30-2025 Instructions* Patient Instructions* Luna Cope MD - 08/28/2024 10:37 AM EDT - Continue taking metoprolol, atorvastatin, and Fioricet exactly as prescribed; you no longer need the Flexeril. - Schedule a fasting blood draw in six months for a CBC, CMP (blood sugar, kidney/liver), lipid panel, and vitamin D level. - Plan a follow-up visit after your lab results are available in six months. - Keep up with regular mammograms; continue screening per your routine schedule. - Repeat a bone density scan in about one year (last done 08/22/23). - Wear your glasses and see your eye doctor in August to check your cataracts. - If you d like another COVID-19 booster, you may get a second dose now; discuss timing if you decide to proceed. - Obtain the RSV vaccine at your pharmacy (Medicare won t allow us to administer it in the office). - Maintain your exercise routine--walk 20 minutes three times a week and continue doing housework for activity. - Use your seatbelt, handrails on steps, and keep good lighting at home to prevent falls. - Continue to manage occasional urge incontinence; let us know if it worsens. - Work toward a more balanced diet to improve from your current so-so level. - If feelings of stress, loneliness, or any new concerns arise, contact our office for support. - Keep your living will and durable medical power of ip attorney documents up to date and accessible. documented in this encounterMercy Memorial Hospital05-30-2025 NoteShelby [facility] Hospital05-30-2025 History of Present illness Narrative* Luna Cope MD - 08/28/2024 9:50 AM EDT Images from the original note were not included. Medicare Health Risk Assessment General Health Good Exercise: Minutes/Day 20 min Exercise: Days/Week 3 days Alcohol: Daily Use Never Alcohol: Drinks/Day Patient does not drink Alcohol: 6 or more drinks Never Feel off balance No Concerns: Teeth/Dentures No Concerns: Sexual function No Troubled by feelings Stressed; Lonely Frequency: Eating healthy diet Several days ADLs requiring help None of the above Safety precautions in home/vehicle Yes Smoke, vape, chews tobacco No Difficulty hearing No Difficulty seeing No Current Providers Specialists: I have reviewed specialist-related care of the patient in the medical record. Current care team: Patient Care Team: Luna Cope MD as PCP - General (Family Medicine) Benson Pierre MD (Radiation Oncology) Glen Iglesias MD (Hematology/Oncology) Kimberley Renee, YUNIOR as Dictating Machine Transcriber (Family Medicine) Pamela Lay APRN.CNP as Dictating Machine Transcriber (Family Medicine) Outside specialists seen: Dr Jain, optho Dr. Randle, Cardiology Dr. Sanchez, surgery. ELIA [facility] Medical/Family history review Reviewed and updated problem list, medical/surgical/family/social history, medications, and allergies. Opioid use review Opioid Medications (last 90 days) No data to display Anxiety/Depression screening ELIZABETH-7 Score: 0. Recommendation: no further intervention at this time Cognitive screening Mini Cog Score: 5 Cognitive screening reviewed and No further action needed (score 3-5). Functional Observation Was the patient's Timed Up & Go test unsteady or >= 12 seconds? No Advance Care Planning Surrogate decision maker and/or advance care plan documented Measurements BP 102/62 Pulse 64 Ht 175 cm (5' 8.9) Wt 73.5 kg (162 lb) LMP 04/07/2004 SpO2 97% BMI 23.99 kg/m Vision Screening: Follows with optometry/ophthalmology Radha is a 74-year-old female with a history of breast cancer, hyperlipidemia, and headaches, presenting for an initial Medicare wellness visit. HPI Annual Wellness Exam: - Overall health described as pretty good. - Engages in walking for 20 minutes, 3 times a week; also increasing housework. - No alcohol use; denies balance issues or recent falls. - No issues with teeth or dentures. - No concerns with sexual functioning. - Diet described as so-so. - No assistance needed with ADLs. - No safety issues in the home; uses seatbelt consistently. - Hearing is not what it used to be, but no significant issues reported. - Wears glasses; cataracts noted but not ready for surgery. - No unusual headaches, ear pain, sore throat, neck pain, lumps, or bumps. - No chest pain, swelling, palpitations, or syncope. - No cough, wheezing, or dyspnea. - No abdominal pain, nausea, emesis, or bowel changes. - No hematuria or dysuria. - Mild urge incontinence, worsened during chemotherapy but now improved. - No dermatological issues reported. - Allergies to adhesive and tetracyclines. - Current medications: atorvastatin, Fioricet, metoprolol; no recent use of Flexeril. - No opioid use. - No changes in family history; no family members remaining. - No tobacco or marijuana use. Breast Cancer: - Diagnosed last year; underwent surgery, chemotherapy, and radiation. - Followed by Dr. Iglesias ([place]), Dr. Pierre (Radiation Oncology), and Dr. Sanchez (Surgery). - Recent mammogram was normal. - Reports some loneliness and stress related to cancer treatment and recovery. - , age 85, has mobility issues and requires assistance, limiting Radha's social activities. - Denies feeling down, depressed, or hopeless in the past two weeks. Hyperlipidemia: - Managed with atorvastatin. - Last blood work in March of the previous year. Headaches: - Managed with Fioricet; no unusual headaches reported. MEDICATIONS: Current Outpatient Medications Medication Sig acetaminophen 300 mg-caffeine 40 mg-butalbital 50 mg (FIORICET) per capsule Take 1 capsule by mouthevery 4 hours as needed for headache. aspirin, enteric coated (ASPIRIN, ENTERIC COATED) 81 mg EC tablet Take 81 mg by mouth once daily. ZINC ORAL Take 50 mg by mouth once daily. calcium carbonate/vitamin D3 (CALCIUM 600 + D ORAL) Take 1 tablet by mouth four times daily. atorvastatin 10 mg tablet Take 10 mg by mouth once daily. metoprolol succinate XL (TOPROL XL) 50 mg ORAL 24 hr tablet Take 1 tablet by mouth once daily. MULTIVITAMIN TABLET Take 1 tablet by mouth once daily. cyclobenzaprine (FLEXERIL) 5 mg tablet Take 1 tablet by mouth two times a day as needed. acetaminophen (TYLENOL) 325 mg tablet Take 2 tablets by mouth every 4 hours as needed for pain. No current facility-administered medications for this visit. ALLERGIES: ALLERGIES Allergen Reactions Adhesive Rash bandaids Tetracyclines Rash PAST MEDICAL HISTORY Diagnosis Date Abnormal mammogram of left breast 08/22/2023 08/27/23 abnormal diagnostic left breast ultrasound. 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 Difficult intravenous access 04/03/2021 Diverticulitis of colon (without mention of hemorrhage)(562.11) Essential hypertension, benign on Toprol Female stress incontinence Migraine with aura, without mention of intractable migraine without mention of status migrainosus Nonspecific (abnormal) findings on radiological and other examination of gastrointestinal tract PAST SURGICAL HISTORY Procedure Laterality Date BREAST SURGERY HX biopies as teenager and early 30s, small lumpectomy BX BREAST W/DEVICE 1ST LESION STEREOTACTIC GUID Right 01/31/2017 Benign microcalcifications and a fibroadenoma BX OF BREAST; INCISIONAL 2023 COLON SURGERY HX 04/04/2021 LAPAROSCOPIC COLECTOMY SIGMOID COLON W/ COLORECTAL ANASTOMOSIS COLONOSCOPY FLX DX W/COLLJ SPEC WHEN PFRMD 12/20/2006 COLONOSCOPY FLX DX W/COLLJ SPEC WHEN PFRMD 12/20/2016 Colonoscopy COLONOSCOPY FLX DX W/COLLJ SPEC WHEN PFRMD 03/16/2021 PAST SURGICAL HISTORY OF breast biopsies x 2 SKIN BIOPSY HX TONSILLECTOMY PRIMARY/SECONDARY <AGE 14 TOTAL ABDOMINAL HYSTERECT W/WO RMVL TUBE OVARY Hysterectomy, NEO uterine cancer US BREAST NEEDLE CORE BIOPSY LT Left 09/2023 FAMILY HISTORY Problem Relation Age of Onset Cancer Mother uterine Heart Mother Heart Father Hypertension Father Diabetes Father type II other (Multiple myloma) Father other (Fistula) Maternal Grandmother other (Hemochromatosis) Paternal Uncle Anesthesia Problems No Family History Social History Tobacco Use Smoking status: Never Smokeless tobacco: Never Vaping Use Vaping status: Never Used Substance Use Topics Alcohol use: Yes Comment: rare Drug use: No Reviewed current medications, allergies, past medical history, surgical history, family history andsocial history today. REVIEW OF SYSTEMS Constitutional: (+) weight loss Ears/Nose/Mouth/Throat: (+) decreased hearing, (-) ear pain, (-) sore throat, (- ) dental problems Neck: (-) neck pain, (-) neck masses Cardiovascular: (-) chest pain, (-) edema, (-) palpitations, (-) syncope Respiratory: (-) cough, (-) wheezing, (-) dyspnea Gastrointestinal: (-) abdominal pain, (-) nausea, (-) vomiting, (-) bowel changes, (-) hematochezia, (-) melena Genitourinary: (+) urge incontinence, (-) dysuria, (-) urinary frequency, (-) hematuria Musculoskeletal: (-) falls, (-) balance difficulties Skin: (+) incisional pain Psychiatric: (+) stress, (+) loneliness, (-) anhedonia, (-) depressed mood HEALTH MAINTENANCE: Reviewed health maintenance issues today and recommended the following in detail. There are no preventive care reminders to display for this patient. LAB REVIEWED: Labs: Tests: Imaging: - Mammogram: Normal VITALS: BP 102/62 Pulse 64 Ht 175 cm (5' 8.9) Wt 73.5 kg (162 lb) LMP 04/07/2004 SpO2 97% BMI 23.99 kg/m Last 4 Encounter Wt Readings: Date: Wt: 08/28/2024 73.5 kg (162 lb) 07/01/2024 74.4 kg (164 lb) 06/23/2024 74.4 kg (164 lb) 04/14/2024 72.8 kg (160 lb 9.6 oz) PHYSICAL EXAMINATION: GENERAL: NAD, alert and oriented. SKIN: Unremarkable, no rash or skin lesions. NECK: Supple, no lymphadenopathy, normal thyroid, no carotid bruits. LUNGS: Clear to auscultation bilaterally, no wheezes/rhonchi/rales. HEART: Regular rate and rhythm, no murmurs. No ectopy. EXTREMITIES: Normal, no deformities, no skin discoloration, no edema. NEURO: Awake, alert and oriented x3, cranial nerves II-XII grossly intact, normal gait, no involuntary motions. ASSESSMENT AND PLAN 1. Medicare annual wellness visit, subsequent (Z00.00) - Conducted comprehensive review of patient's health status, including exercise, diet, and ADLs. - Patient exercises 20 minutes a day, 3 days a week, primarily walking. - No alcohol use, no recent falls, and no issues with teeth or dentures. - No concerns with sexual functioning. - Patient experiencing some stress and loneliness due to recent cancer treatment and 's declining health. - Diet described as so-so. - No safety issues at home; uses seatbelts and has adequate lighting and handrails. - Hearing and vision are stable; patient wears glasses and has upcoming ophthalmology appointment for cataracts. - Reviewed list of specialists: Dr. Lin (Ophthalmology), Dr. Randle (Cardiology), Dr. Iglesias (Hematology/Oncology), Dr. Pierre (Radiation Oncology), Dr. Sanchez (Surgery), Kenzie Clark (Gynecology), Juancarlos Arechiga (Dermatology). - Allergies to adhesive and tetracyclines confirmed. - Medications reviewed: Atorvastatin, Fioricet, Metoprolol; no recent use of Flexeril. - No changes in family history. - No tobacco use. - Up to date on COVID-19 vaccinations; discussed option for additional booster. - Discussed RSV vaccination; patient advised to obtain at pharmacy. - Blood pressure and weight are stable; patient no longer overweight. - Scheduled follow-up in 6 months with labs including CBC, CMP, lipid panel, and Vitamin D. 2. Encounter for screening examination for other mental health and behavioral disorders (Z13.39) - Completed cognitive screening; patient scored 5 out of 5. - No interventions needed at this time. 3. Essential hypertension, benign (I10) - Blood pressure is well-controlled. - Continue current medication regimen with Metoprolol. 4. Other hyperlipidemia (E78.49) - Managed with Atorvastatin. - Lipid panel to be included in labs scheduled for 6 months. 5. History of partial colectomy (Z90.49) - No current issues reported. 6. History of uterine cancer (Z85.42) - No current issues reported. 7. Malignant neoplasm of lower-inner quadrant of left breast in female, estrogen receptor negative (HCC) (C50.312) 8. 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) (C50.919) - Recent mammogram results were normal. - Follow-up with Dr. Iglesias (Hematology/Oncology) and Dr. Pierre (Radiation Oncology) ongoing. - Continue regular mammograms. 9. Osteopenia of multiple sites (M85.89) - Last bone density scan on 08/22/23; next scan due in about a year. 10. Screening for depression (Z13.31) - Depression screening completed; no signs of depression or anxiety. - No interventions needed at this time. (See patient after visit summary for additional instructions to patient) Luna Cope MD Recording using [employer] software for draft documentation of the visit was discussed with the patient/authorized corporate sales representative; all questions welcomed and answered. Patient/authorized corporate sales representative agreed to proceed documented in this encounterMer[facility]05-27-2025 History of Present illness Narrative* Julian Claros Mammo Tech - 08/25/2024 11:30 AM EDT Radiology Service Progress Note PATIENT NAME: Radha Witt DATE OF SERVICE: August 25, 2024 TIME: 1:08 PM PATIENT IDENTITY VERIFICATION COMPLETED USING TWO (2) IDENTIFIERS: Name and Date of confirmedby patient verbally. FALL SCREENING: Has the patient had 2 falls in the last year or 1 fall with injury or currently using an Ambulatory Assistive Device (Walker, Cane, Wheelchair, Crutches, etc.)? No PATIENT GENDER DATA: Assigned female at . status: : No status:NO. PATIENT RELEVANT IMPLANT DATA REVIEWED: Not Applicable PATIENT PRESENTS WITH AN IMPLANTABLE OR ATTACHED CONSTRUCTION ESTIMATOR: No RADIOLOGY DEPARTMENT: Mammography PERIPHERAL IV DATA: Not applicable SIGNED BY: Yadira Gregory August 25, 2024 1:08 PM documented in this encounterMercy [facility]05-27-2025 NoteS[facility]05-08-[facility] Telephone encounter Note* Telephone Encounter - Alyson Shaw RN - 08/06/2024 10:06 AM EDT Called patient. Audie reviewed [facility] message. Unrelated to chemotherapy. Patient will follow-up withPCP. Alyson Shaw RN [facility] Miscellaneous Notes* Telephone Encounter - Alyson Shaw RN - 08/06/2024 10:06 AM EDT Called patient. Audie reviewed [facility] message. Unrelated to chemotherapy. Patient will follow-up withPCP. Alyson Shaw RN documented in this encounterMercy [facility] Hospital04-03-2025 History of Present illness Narrative* Fiona Brown RDMS - 07/02/2024 3:15 PM EDT Radiology Service Progress Note PATIENT NAME: Radha Witt DATE OF SERVICE: July 02, 2024 TIME: 3:36 PM PATIENT IDENTITY VERIFICATION COMPLETED USING TWO (2) IDENTIFIERS: Name and Date of confirmedby patient verbally. FALL SCREENING: Has the patient had 2 falls in the last year or 1 fall with injury or currently using an Ambulatory Assistive Device (Walker, Cane, Wheelchair, Crutches, etc.)? Yes, Patient High Riskfor Falls What interventions were put in place to prevent falls during this visit? Increased Observations by Caregivers PATIENT GENDER DATA: Assigned female at . status: : No status:NO. PATIENT RELEVANT IMPLANT DATA REVIEWED: Not Applicable PATIENT PRESENTS WITH AN IMPLANTABLE OR ATTACHED CONSTRUCTION ESTIMATOR: No RADIOLOGY DEPARTMENT: Ultrasound PERIPHERAL IV DATA: Not applicable SIGNED BY: Fiona Brown RDMS July 02, 2024 3:36 PM documented in this encounterMercy [facility] Hospital04-03-2025 NoteS[facility]04-02-2025 NoteS[facility]04-02-2025 History of Present illness Narrative* Luna Cope MD - 07/01/2024 3:33 PM EDT Patient presents with: Mass HPI: Patient presents today for office visit for follow up. See below. Had a lump that was tender like a bruise Had fallen on Saturday but does not recall if she hit that area. After noted the lump yesterday. Not as tender. Not hot or red. No lumps or bumps elsewhere. No drainage. Note was copied and pasted, without alteration from nurse triage note: [1] Swelling is painful to touch AND [2] no fever Answer Assessment - Initial Assessment Questions 1. APPEARANCE of SWELLING: Patient reports an area under left breast/ribs more off to the side thatis swollen. Patient reports a week ago she noticed the area was tender to touch and looked bruised.Now area is swollen but not bruised and not as tender. Patient is rather concerned d/t history of cancer. 2. SIZE: Patient reports about 2 inches in size and raised about the size of a pencil eraser. 3. LOCATION: Left side under breast/rib area but towards the side. 4. ONSET: Noticed the swelling started yesterday. 5. COLOR: Bruising about a week ago. Skin color now that is raised. 6. PAIN: - MILD (1-3): Doesn't interfere with normal activities. 7. ITCH: No 8. CAUSE: Patient not certain. Voices concern for cancer because of her history and wants to have looked at soon. 9 OTHER SYMPTOMS: Afebrile. MEDICATIONS: Current Outpatient Medications Medication Sig cyclobenzaprine (FLEXERIL) 5 mg tablet Take 1 tablet by mouth two times a day as needed. acetaminophen 300 mg-caffeine 40 mg-butalbital 50 mg (FIORICET) per capsule Take 1 capsule by mouthevery 4 hours as needed for headache. aspirin, enteric coated (ASPIRIN, ENTERIC COATED) 81 mg EC tablet Take 81 mg by mouth once daily. acetaminophen (TYLENOL) 325 mg tablet Take 2 tablets by mouth every 4 hours as needed for pain. ZINC ORAL Take 50 mg by mouth once daily. calcium carbonate/vitamin D3 (CALCIUM 600 + D ORAL) Take 1 tablet by mouth four times daily. atorvastatin 10 mg tablet Take 10 mg by mouth once daily. metoprolol succinate XL (TOPROL XL) 50 mg ORAL 24 hr tablet Take 1 tablet by mouth once daily. MULTIVITAMIN TABLET Take 1 tablet by mouth once daily. No current facility-administered medications for this visit. ALLERGIES: ALLERGIES Allergen Reactions Adhesive Rash bandaids Tetracyclines Rash PAST MEDICAL HISTORY Diagnosis Date Abnormal mammogram of left breast 08/22/2023 08/27/23 abnormal diagnostic left breast ultrasound. 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 Difficult intravenous access 04/03/2021 Diverticulitis of colon (without mention of hemorrhage)(562.11) Essential hypertension, benign on Toprol Female stress incontinence Migraine with aura, without mention of intractable migraine without mention of status migrainosus Nonspecific (abnormal) findings on radiological and other examination of gastrointestinal tract PAST SURGICAL HISTORY Procedure Laterality Date BREAST SURGERY HX biopies as teenager and early 30s, small lumpectomy BX BREAST W/DEVICE 1ST LESION STEREOTACTIC GUID Right 01/31/2017 Benign microcalcifications and a fibroadenoma BX OF BREAST; INCISIONAL 2023 COLON SURGERY HX 04/04/2021 LAPAROSCOPIC COLECTOMY SIGMOID COLON W/ COLORECTAL ANASTOMOSIS COLONOSCOPY FLX DX W/COLLJ SPEC WHEN PFRMD 12/20/2006 COLONOSCOPY FLX DX W/COLLJ SPEC WHEN PFRMD 12/20/2016 Colonoscopy COLONOSCOPY FLX DX W/COLLJ SPEC WHEN PFRMD 03/16/2021 PAST SURGICAL HISTORY OF breast biopsies x 2 SKIN BIOPSY HX TONSILLECTOMY PRIMARY/SECONDARY <AGE 14 TOTAL ABDOMINAL HYSTERECT W/WO RMVL TUBE OVARY Hysterectomy, NEO uterine cancer US BREAST NEEDLE CORE BIOPSY LT Left 09/2023 FAMILY HISTORY Problem Relation Age of Onset Cancer Mother uterine Heart Mother Heart Father Hypertension Father Diabetes Father type II other (Multiple myloma) Father other (Fistula) Maternal Grandmother other (Hemochromatosis) Paternal Uncle Anesthesia Problems No Family History Social History Tobacco Use Smoking status: Never Smokeless tobacco: Never Vaping Use Vaping status: Never Used Substance Use Topics Alcohol use: Yes Comment: rare Drug use: No Reviewed current medications, allergies, past medical history, surgical history, family history andsocial history today. REVIEW OF SYSTEMS All other reviewed and negative other than HPI. VITALS: LMP 04/07/2004 Last 4 Encounter Wt Readings: Date: Wt: 06/23/2024 74.4 kg (164 lb) 04/14/2024 72.8 kg (160 lb 9.6 oz) 04/07/2024 73.5 kg (162 lb) 03/24/2024 68.5 kg (151 lb) PHYSICAL EXAMINATION: General appearance: Well appearing, alert, in no acute distress, well-hydrated, well nourished. Abdomen: Normal abdominal exam, Abdomen soft, non-tender. Bowel sounds normal. No masses, organomegaly, has a very small superficial palpable skin lump that appears to be more lipoma or skin cyst. ASSESSMENT/PLAN: 1. Soft tissue mass - ICD9: 729.99, ICD10: M79.89 (primary diagnosis) - see if we can start with us. I think is not related to her cancer but will check. Red flags for re-assessment reviewed with patient in detail. - US SOFT TISSUE ABDOMEN Consider ct if any questions. 2. History of breast cancer - ICD9: V10.3, ICD10: Z85.3 - US SOFT TISSUE ABDOMEN Luna Cope MD documented in this encounterMer[facility]04-02-2025 Telephone encounter Note * Telephone Encounter - Kamilah Yeboah RN - 07/01/2024 9:56 AM EDT Patient calls for swelling to left side under breasts/ribs. Nurse triage recommends see provider within 24 hours. Appt scheduled. Care advice reviewed with verbalized understanding. Reason for Disposition [1] Swelling is painful to touch AND [2] no fever Answer Assessment - Initial Assessment Questions 1. APPEARANCE of SWELLING: Patient reports an area under left breast/ribs more off to the side thatis swollen. Patient reports a week ago she noticed the area was tender to touch and looked bruised.Now area is swollen but not bruised and not as tender. Patient is rather concerned d/t history of cancer. 2. SIZE: Patient reports about 2 inches in size and raised about the size of a pencil eraser. 3. LOCATION: Left side under breast/rib area but towards the side. 4. ONSET: Noticed the swelling started yesterday. 5. COLOR: Bruising about a week ago. Skin color now that is raised. 6. PAIN: - MILD (1-3): Doesn't interfere with normal activities. 7. ITCH: No 8. CAUSE: Patient not certain. Voices concern for cancer because of her history and wants to have looked at soon. 9 OTHER SYMPTOMS: Afebrile. Protocols used: Skin Lump or Localized [id number] [facility]04-02-[facility] Miscellaneous Notes* Telephone Encounter - Kamilah Yeboah RN - 07/01/2024 9:56 AM EDT Patient calls for swelling to left side under breasts/ribs. Nurse triage recommends see provider within 24 hours. Appt scheduled. Care advice reviewed with verbalized understanding. Reason for Disposition [1] Swelling is painful to touch AND [2] no fever Answer Assessment - Initial Assessment Questions 1. APPEARANCE of SWELLING: Patient reports an area under left breast/ribs more off to the side thatis swollen. Patient reports a week ago she noticed the area was tender to touch and looked bruised.Now area is swollen but not bruised and not as tender. Patient is rather concerned d/t history of cancer. 2. SIZE: Patient reports about 2 inches in size and raised about the size of a pencil eraser. 3. LOCATION: Left side under breast/rib area but towards the side. 4. ONSET: Noticed the swelling started yesterday. 5. COLOR: Bruising about a week ago. Skin color now that is raised. 6. PAIN: - MILD (1-3): Doesn't interfere with normal activities. 7. ITCH: No 8. CAUSE: Patient not certain. Voices concern for cancer because of her history and wants to have looked at soon. 9 OTHER SYMPTOMS: Afebrile. Protocols used: Skin Lump or Localized [id number] documented in this encounterMercy [facility] Hospital03-25-2025 History of Present illness Narrative* Audie Hemphill - 06/23/2024 1:00 PM EDT Radha Witt 1950 06/23/[address] Iglesias: HISTORY OF PRESENT ILLNESS: Radha Witt is a 73 year old female referred for medical oncology care after new diagnosis left triple negative breast cancer. We discussed role of systemic chemotherapy in management of this entity. Reviewed imaging thus far: cT1bN0 with additional enhancement posteriorly on breast MRI Multiple additional lesion noted on breast MRI, biopsies pending. History uterine cancer [facility] BSO 05-04-04 Discussed genetic counseling, she has no children of siblings, but will consider. Here for follow up, post lumpectomy 11-12-23 pT1bN0 grade 3 Interval Hx: Pt presents today with her spouse for follow up and to review SCP. She reports feeling well today. Feels that she is recovering from treatment and radiation. eports feeling well overall today. Deniesrecent fevers, chills or NS. No new aches or pains. 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 Still having some trouble with post earrings.No rash, skin changes or edema. Denies SOB. CP, or palpitations. No changes in bowel or bladder habits. No bleeding. CLINICAL IMPRESSION: Early stage left TNBC. - completed tx with adjuvant chemotherapy and radiation - following with Pk Meza - we reviewed SCP in detail today, copies provided. RECOMMENDATION/PLAN: - Follow up breast MRI, screening MMG - Encouraged breast psychology, as recommended by surgery. - continue to follow with PCP for all other routine healthcare maintenance - RTC as scheduled with Dr. Iglesias in nov All questions answered at this time. Advised to call with any questions or concerns in the meantime. PAST MEDICAL HISTORY Diagnosis Date Abnormal mammogram of left breast 08/22/2023 08/27/23 abnormal diagnostic left breast ultrasound. 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 Difficult intravenous access 04/03/2021 Diverticulitis of colon (without mention of hemorrhage)(562.11) Essential hypertension, benign on Toprol Female stress incontinence Migraine with aura, without mention of intractable migraine without mention of status migrainosus Nonspecific (abnormal) findings on radiological and other examination of gastrointestinal tract PAST SURGICAL HISTORY Procedure Laterality Date BREAST SURGERY HX biopies as teenager and early 30s, small lumpectomy BX BREAST W/DEVICE 1ST LESION STEREOTACTIC GUID Right 01/31/2017 Benign microcalcifications and a fibroadenoma BX OF BREAST; INCISIONAL 2023 COLON SURGERY HX 04/04/2021 LAPAROSCOPIC COLECTOMY SIGMOID COLON W/ COLORECTAL ANASTOMOSIS COLONOSCOPY FLX DX W/COLLJ SPEC WHEN PFRMD 12/20/2006 COLONOSCOPY FLX DX W/COLLJ SPEC WHEN PFRMD 12/20/2016 Colonoscopy COLONOSCOPY FLX DX W/COLLJ SPEC WHEN PFRMD 03/16/2021 PAST SURGICAL HISTORY OF breast biopsies x 2 SKIN BIOPSY HX TONSILLECTOMY PRIMARY/SECONDARY <AGE 14 TOTAL ABDOMINAL HYSTERECT W/WO RMVL TUBE OVARY Hysterectomy, NEO uterine cancer US BREAST NEEDLE CORE BIOPSY LT Left 09/2023 FAMILY HISTORY Problem Relation Age of Onset Cancer Mother uterine Heart Mother Heart Father Hypertension Father Diabetes Father type II other (Multiple myloma) Father other (Fistula) Maternal Grandmother other (Hemochromatosis) Paternal Uncle Anesthesia Problems No Family History Social History Tobacco Use Smoking status: Never Smokeless tobacco: Never Vaping Use Vaping status: Never Used Substance Use Topics Alcohol use: Yes Comment: rare Drug use: No ALLERGIES: ALLERGIES Allergen Reactions Adhesive Rash bandaids Tetracyclines Rash CURRENT OUTPATIENT MEDICATIONS: cyclobenzaprine (FLEXERIL) 5 mg tablet Take 1 tablet by mouth two times a day as needed. acetaminophen 300 mg-caffeine 40 mg-butalbital 50 mg (FIORICET) per capsule Take 1 capsule by mouthevery 4 hours as needed for headache. aspirin, enteric coated (ASPIRIN, ENTERIC COATED) 81 mg EC tablet Take 81 mg by mouth once daily. acetaminophen (TYLENOL) 325 mg tablet Take 2 tablets by mouth every 4 hours as needed for pain. ZINC ORAL Take 50 mg by mouth once daily. calcium carbonate/vitamin D3 (CALCIUM 600 + D ORAL) Take 1 tablet by mouth four times daily. atorvastatin 10 mg tablet Take 10 mg by mouth once daily. metoprolol succinate XL (TOPROL XL) 50 mg ORAL 24 hr tablet Take 1 tablet by mouth once daily. MULTIVITAMIN TABLET Take 1 tablet by mouth once daily. REVIEW OF SYSTEMS: GENERAL: No fever, night sweats, weight loss or malaise. All other reviewed and negative other than HPI. All systems reviewed on 06/23/2024 with pertinent positives and negatives as outlined in the interval history. PHYSICAL EXAMINATION: VITAL SIGNS: BP 136/73 Pulse 63 Temp (Src) 97.1 (Temporal) Wt 164 lb (74.4kg) SpO2 98% LMP 04/07/2004 GENERAL APPEARANCE: Well appearing, in no acute distress, alert and oriented x3, well-hydrated, well nourished. HEENT: Normocephalic, no sclera icterus, external ears normal Chest: Clear bilaterally, no wheezes, not labored. Heart: Normal S1 and S2, no abnormal sounds Abdomen: Soft, nontender, nondistended Extremities: No edema Neurological: Grossly intact Skin: Warm and dry with, no rash Hematologic: no bruising or petechiae. I have performed the physical exam today (06/23/2024) and have edited the note to correlate with current findings. Audie Hemphill APRN.MAORI PHYSIOTHERAPIST I spent a total of 30 minutes on the date of the service which included preparing to see the patient, [id number] patient care, completing clinical documentation, and obtaining and/or reviewing separately obtained history. Portions of this note including HPI, ROS, impression/plan may have been copied forward as to provide important historical information essential in contributing to medical decision making. Documentation has been reviewed and edited as necessary to support clinical decision making for today's visit and to reflect my own independent evaluation of this patient. 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 Final pathology reports 7mm of IDC, margins clear, Grade 3, 0/3 LN, -LVI ER-DE-HER2- pT1b, N0 She initially presented on 10/11/2023 with a LEFT breast 1.1 cm mass @ 8:00, 6 cm FN. Bx (bar clip) shows IDC. LN appear normal ER-DE-HER2- [id number] History uterine cancer NEO BSO 2 HISTORY: Patient was last seen at her post operative appointment on 11/27/2023. At that time, she was healing well and pathology results were reviewed by Dr. Sanchez (Breast Surgeon) and the patient. In the interim, she followed up with Dr. Iglesias (Medical Oncologist) who recommended adjuvant chemotherapy ( 4 cycles of TC) . Treatment was completed in 01/2024. She underwent adjuvant Radiation therapy with Dr.D Pierre (Radiation Oncologist) from 03/16/2024 - 04/14/2024 Last bilateral screening mammogram was on 08/22/2023. Underwent a Breast MRI of two previously benign breast biopsies performed on 06/02/2023. Imaging was to demonstrate stability of a RIGHT benign biopsy finding in the lower outer aspect andan additional similar area of non-mass enhancement in the right breast noted on MRI in 09/2023. Patient is here to discuss the findings and for a clinical examination ROS: HEENT: Denies vision changes or headaches BREAST: Denies palpating any new breast masses, no breast pain, no skin changes, no nipple discharge ABD: Denies any abdominal pain or new changes in bowel habits MUSCULOSKELETAL: Denies any bone, joint or muscle pain IMAGING: DATE OF EXAM: Jun 01 2024 1:06PM [facility] 0773 - MRI BREAST WO/W IVCON JINNY / PROCEDURE REASON: multiple diagnoses HISTORY: 74 year-old patient seen for diagnostic evaluation of personal breast cancer history. 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 History of benign right biopsy in 2017 as well as benign bilateral MRI biopsies 10/2023. COMPARISON STUDIES: The present examination has been compared to prior imaging studies dated 08/22/2023 (mammogram), 08/27/2023 (ultrasound), 08/27/2023 (mammogram), 09/25/2023 (mammogram), 10/18/2023 (MRI), 10/23/2023 (mammogram), 10/23/2023, 11/07/2023 (mammogram), 11/07/2023, 11/08/2023 (mammogram) and 11/08/2023 (MRI). BREAST MRI: TECHNIQUE: The patient was studied using the dedicated breast coil in the Siemens 1.5 Susannah scanner. Initial axial T1W NFS, STIR imaging was carried out followed by axial T1-weighted GRE imaging both before and after IV administration of 7 ml of Elucirem. Subsequently, subtraction imaging and 3-D reconstruction were completed on an independent workstation. An additional [id number] resolution sequence was performed after the first two 1 minute post-contrast sequences. Complex volumetric analysis requiring post processing was performed using a semi-automated software Workspaceac[employer], on an independent workstation by the physician, with images created, reviewed, and archived. FINDINGS: There is heterogeneous fibroglandular tissue. There is mild background parenchymal enhancement. The background parenchymal enhancement is symmetrical. RIGHT BREAST: No suspicious masses or areas of abnormal enhancement. Previously mentioned enhancing foci, including area of previous benign right breast MRI biopsy are no longer visible. Susceptibility biopsy clip artifact from prior benign biopsies noted in the lower central and lower outer breast. LEFT BREAST: There are postsurgical changes from interval lumpectomy and postradiation changes, including skin thickening and edema, most notably in the lower inner quadrant. There is a 8.1 x 3.6 x 3.2 cm minimally peripherally enhancing, central T2 hyperintense postoperative seroma in the lower central posterior breast, abutting the pectoralis muscle. There are patchy areas of non mass enhancement and scattered foci with predominantly faint subthreshold enhancement in the left breast. For example, along the anterior aspect of the surgical bed ((98849:64), lateral surgical bed (05/31/2000: 66), and inferior surgical bed (14496:41, 29). There are also a few similar appearing areas within the lateral and lower inner left breast. A few of the foci of enhancement in the lower inner breast show progress/plateau kinetics. There is associated edema throughout the left breast. There is no abnormal enhancement at site of displaced hydromark butterfly biopsy clip in the lateral left breast. The hydromark barrel clip at site of prior benign and concordant MRI biopsy in the lower inner breast is not well visualized due to associated postsurgical change. The previously described abnormal enhancement at that site does not obviously persist on today's study although area is obscured by postoperative edema. LYMPH NODES: Postsurgical changes in the left axilla from sentinel lymph node biopsy. No enlarged axillary or internal mammary lymph nodes. EXTRAMAMMARY FINDINGS: There is some stippled enhancement in the sternum (11:141, 100:165) with associated T2 hyperintensity which is unchanged compared to prior study and favored to represent degenerative change at the sternomanubrial joint. Attention on follow up is recommended. IMPRESSION: RIGHT BREAST: 1. No MRI evidence of malignancy. 2. Interval resolution of previously mentioned enhancing foci. 3. No lymphadenopathy. LEFT BREAST: 1. Expected postsurgical and postradiation changes in the left breast including skin thickening and edema. There is a 8.1 cm seroma in the lumpectomy bed. 2. There are patchy areas of predominantly subthreshold enhancement with associated edema along the lumpectomy bed and scattered throughout the left breast which is favored to represent post-treatment change given patient just finished chemotherapy in January and radiation in April and are probably benign. However, it is noted that only a minute focus of invasive carcinoma was noted on the final surgical pathology. Therefore, short interval follow-up with breast MRI in 6 months is recommended. 3. No lymphadenopathy. Patient is under the care of of Dr. Iglesias and WHITLEY Duarte. BI-RADS Category 3: Probably Benign Interpreting Radiologist: Sonali German M.D. EXAMINATION: GEN alert and orientated, well nourished, calm Regional Lymph Nodes There is no concerning supraclavicular, infraclavicular or cervical lymphadenopathy. BREASTS: The patient was examined in the upright and supine position. RIGHT breast soft, no dominant masses, nipple everted, no discharge, no skin changes RIGHT axilla no palpable axillary lymphadenopathy LEFT breast soft, no dominant masses, nipple everted, no discharge, no skin changes. Inframammary incision is well healed. 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 Final pathology reports 7mm of IDC, margins clear, Grade 3, 0/3 LN, -LVI Triple negative pT1b, N0 She initially presented on 10/11/2023 with a LEFT breast 1.1 cm mass @ 8:00, 6 cm FN. Bx (bar clip) shows IDC. LN appear normal [id number]-[id number] History uterine cancer NEO BSO 05-04-04 No clinical or Breast MRI evidence of disease process today. PLAN: Imaging reviewed with Dr. Calderon (Radiologist) and with Dr. Sanchez (Breast Surgeon) Screening MMG is planned for 07/2024. Follow up Breast MRI is ordered for the LEFT breast findings in 6 month Patient instructed on how to perform a monthly SBE Ms. Witt will follow-up with Ms. Hemphill (Medical Oncologist) as scheduled, 06/23/2024. Consult placed for Breast Psychobiologist for additional support . Ms. Witt will follow-up with us in 6 months.. She has our names and numbers to stay in touch if she has any questions, concerns or problems in the interim. I spent a total of 25 minutes on the date of the service which included preparing to see the patient, [id number] patient care, completing clinical documentation, obtaining and/or reviewing separately obtained history, performing a medically appropriate examination, counseling and educating the pat ient/family/caregiver, and ordering medications, tests, or procedures. Pk Ramsey PA-C cc: Evita Sanchez, DO Breast Surgeon [address] [place] [address] documented in this encounterMer[facility]03-05-2025 NoteS[facility]03-03-2025 History of Present illness Narrative* Traci Lee, sap technical developer - 06/01/2024 11:40 AM EST Radiology Service Progress Note PATIENT NAME: Radha Witt DATE OF SERVICE: June 01, 2024 TIME: 12:54 PM PATIENT IDENTITY VERIFICATION COMPLETED USING TWO (2) IDENTIFIERS: Name and Date of confirmedby patient verbally. FALL SCREENING: Has the patient had 2 falls in the last year or 1 fall with injury or currently using an Ambulatory Assistive Device (Walker, Cane, Wheelchair, Crutches, etc.)? No PATIENT GENDER DATA: Assigned female at . status: : No status:NO. PATIENT RELEVANT IMPLANT DATA REVIEWED: Yes PATIENT PRESENTS WITH AN IMPLANTABLE OR ATTACHED CONSTRUCTION ESTIMATOR: No RADIOLOGY DEPARTMENT: MR; Exam(s) Completed: Chest: Breast PERIPHERAL IV DATA: Site assessment: Clean,Dry and Intact, Site disposition Discontinued SIGNED BY: TIFF Nina June 01, 2024 12:54 PM documented in this encounterMercy Memorial Hospital03-03-2025 NoteHNO ID: [id number] Author: TRACI LEE MRI Tech Service: Radiology Author Type: Prosthetist Type: Progress Notes Filed: 06/01/2024 12:54 Note Text: Radiology Service Progress Note PATIENT NAME: Radha Witt DATE OF SERVICE: June 01, 2024 TIME: 12:54 PM PATIENT IDENTITY VERIFICATION COMPLETED USING TWO (2) IDENTIFIERS: Name and Date of confirmed by patient verbally. FALL SCREENING: Has the patient had 2 falls in the last year or 1 fall with injury or currently using an Ambulatory Assistive Device (Walker, Cane, Wheelchair, Crutches, etc.)? No PATIENT GENDER DATA: Assigned female at . status: : No status: NO. PATIENT RELEVANT IMPLANT DATA REVIEWED: Yes PATIENT PRESENTS WITH AN IMPLANTABLE OR ATTACHED CONSTRUCTION ESTIMATOR: No RADIOLOGY DEPARTMENT: MR; Exam(s) Completed: Chest: Breast PERIPHERAL IV DATA: Site assessment: Clean,Dry and Intact, Site disposition Discontinued SIGNED BY: TIFF Nina June 01, 2024 12:54 [facility]02-11-2025 Telephone encounter Note* Telephone Encounter - Laura Joy - 05/12/2024 3:33 PM EST Prescription Refill Information The patient has been identified by name and date of : Yes Caregiver verified no other encounters exist for this prescription request: Yes Caregiver confirmed with patient/requestor that no other refills are due, in the near future, with this provider at this time: Yes The last office visit in the department: 02/19/24 Does the patient have a future office visit with this provider/department: yes Requested Prescriptions Pending Prescriptions Disp Refills acetaminophen 300 mg-caffeine 40 mg-butalbital 50 mg (FIORICET) per capsule Sig: Take 1 capsule by mouth every 4 hours as needed for headache. Laura Joy May 12, 2024 3:34 PM [facility]02-11-2025 Miscellaneous Notes* Telephone Encounter - Laura Joy - 05/12/2024 3:33 PM EST Prescription Refill Information The patient has been identified by name and date of : Yes Caregiver verified no other encounters exist for this prescription request: Yes Caregiver confirmed with patient/requestor that no other refills are due, in the near future, with this provider at this time: Yes The last office visit in the department: 02/19/24 Does the patient have a future office visit with this provider/department: yes Requested Prescriptions Pending Prescriptions Disp Refills acetaminophen 300 mg-caffeine 40 mg-butalbital 50 mg (FIORICET) per capsule Sig: Take 1 capsule by mouth every 4 hours as needed for headache. Laura Joy May 12, 2024 3:34 PM documented in this encounterMercy [facility] Hospital02-11-2025 NoteShelby [facility]02-11-2025 History of Present illness Narrative* Benson Pierre MD - 05/12/2024 11:15 AM EST AMBULATORY TELEPHONE VISIT Radha Witt has consented to this telephone encounter. Persons Present: patient Chief Complaint/Reason: Four week follow-up after radiation treatment. HPI: Stage IB, pT1b pN0 (sn), grade 3 invasive ductal carcinoma of the left breast s/p left breast lumpectomy and sentinel node biopsy on 11/12/23. It's ER negative (<1%), DE negative (<1%) and Her2 0. s/p adjuvant chemotherapy finished on 02/13/24. s/p radiation treatment to the left breast finished on 04/14/24. She is doing well without any specific new complaints. She denies any pain or discomfort over the left breast. She reports that redness of the left breast improved much. She has moderate fatigue. Data Reviewed: None. Assessment: She is recovering well from acute radiation treatment effects. Plan: She is scheduled to have MRI breast at the end of this month and then to see surgery. She is scheduled to see medical oncology next month. Total Time Spent: 10 minutes Benson Pierre MD documented in this encounterMercy [facility] Hospital01-30-2025 Telephone encounter Note * Telephone Encounter - Eileen Parra - 04/30/2024 9:55 AM EST Spoke w pt and she scheduled for 06/23. Eileen Parra [facility]01-30-2025 Miscellaneous Notes* Telephone Encounter - Eileen Parra - 04/30/2024 9:55 AM EST Spoke w pt and she scheduled for 06/23. Eileen Parra * Telephone Encounter - Roberto Murillo - 04/27/2024 2:47 PM EST 1st attempt. Message left for patient to schedule SCP with Audie. Order in epic. documented in this encounterMercy Memorial Hospital01-27-2025 Telephone encounter Note * Telephone Encounter - Roberto Murillo - 04/27/2024 2:47 PM EST 1st attempt. Message left for patient to schedule SCP with Audie. Order in epic. [facility] Work Phone: [phone] NoteShelby [facility] Hospital01-14-2025 History of Present illness Narrative* Margarette Adame RN - 04/14/2024 1:45 PM EST Written discharge instructions given and reviewed with patient. Patient verbalizes understanding. Encouraged to call with any questions or concerns. Instruction for 4 week phone call follow up appointment given by Dr. Pierre. documented in this encounterMercy Memorial Hospital01-14-2025 NoteShelby [facility] Hospital01-14-2025 History of Present illness Narrative* Benson Pierre MD - 04/14/2024 1:43 PM EST Radiation Oncology - On Treatment Review (OTR) Note PATIENT NAME: Radha Witt PATIENT DIAGNOSIS: Stage IB, pT1b pN0 (sn), grade 3 invasive ductal carcinoma of the left breast s/p left breast lumpectomy and sentinel node biopsy on 11/12/23. It's ER negative (<1%), DE negative (<1%) and Her2 0. s/p adjuvant chemotherapy finished on 02/13/24. COURSE: post-operative AREA TREATED: Left breast CURRENT DOSE: 5005 cGy in 20 fx PLANNED DOSE: 5005 cGy in 20 fx Status: Post-menopausal SUBJECTIVE: She is doing well without any specific new complaints. EXAM: KPS: 100 General Appearance: Alert and oriented. No acute distress. Radiation dermatitis: moderate erythema. IMAGING/LAB RESULTS: None Treatment chart checked: Yes Patient treatment site reviewed and verified:Yes Port films reviewed and current:Yes Medications started: None ASSESSMENT/PLAN: Clinically stable. Toxicity within expected parameters. She finished radiation treatment as planned today. Four week follow-up with me. Benson Pierre MD * Margarette Adame RN - 04/14/2024 1:29 PM EST Radiation Therapy - Nursing Note (OTV) PATIENT NAME: Radha Witt PATIENT April 14, 2024 [facility] FACILITY/LOCATION: [facility] NURSING NOTE TYPE: BREAST Subjective Data no complaints, slight tenderness in breast area Although she did note a red area on right forearm where there had been an IV for chemo in January.Area is about 1.5 cm around and there is bump noted. Advised warm compresses and if it does not improve or gets an open sore to call.She did discuss with Dr Randle this am. And he was not concerned Additional Data Do you want to see a Accounting Teacher? No Status: Post-menopausal. Stress Scale: On a scale of 0 to 10, what number best describes how much distress you have experienced in the past week?(0 being no distress and 10 being extreme distress) 1 Social work notified: Pt denied need to see social media executive at this time. Nursing Assessment Fatigue: none Appetite: good Nutritional Intake: Regular oral intake. Weight Gain/Loss: No Ambulatory weight history: Last 6 Encounter Wt Readings: Date: Wt: 04/07/2024 73.5 kg (162 lb) 03/24/2024 68.5 kg (151 lb) 03/24/2024 73 kg (161 lb) 02/19/2024 72.6 kg (160 lb 0.9 oz) 02/13/2024 74.4 kg (164 lb) 02/07/2024 73.5 kg (162 lb) Nausea:None Vomiting: None Bowel Function: normal bowel movements Erythema/Hyperpigmentation:moderate Desquamation:none Rash:none Skin Care: Aquaphor Skin Sensation: Within Normal Limits Focused Assessment BREAST: Lymphedema Assessment: Is the patient noting any swelling? No. SIGNED by: Margarette Adame RN documented in this encounterMercy Memorial Hospital01-14-2025 NoteShelby [facility]01-14-2025 History of Present illness Narrative* Benson Pierre MD - 04/14/2024 12:00 AM EST RADHA WITT. [id number] : 1950 04/14/2024 [facility] Department of Radiation Oncology RADIATION ONCOLOGY - COMPLETION NOTE DATE OF SIMULATION: 03/11/24 DATES OF TREATMENT: 03/16/24 - 04/14/24 UNIT: [id number]_[id number] AREA TREATED: Left breast DISEASE: Stage IB, pT1b pN0 (sn), grade 3 invasive ductal carcinoma of the left breast s/p left breast lumpectomy and sentinel node biopsy on 11/12/23. It's ER negative (<1%), DE negative (<1%) and Her2 0. s/p adjuvant chemotherapy finished on 02/13/24. DELIVERED DOSE: 5005 cGy in 20 fractions (4005 cGy in 15 fractions to the left breast treating to the 100% isodose line with 10MV and 2 segmented mckay followed by 1000 cGy in 5 fractions boost to the tumor bed treating to the 100% isodose line with 10 MV and 2 mckay.) ELAPSED TIME: 29 days. TOLERANCE/ RESPONSE: Moderate erythema of the left breast. REMARKS: She tolerated radiation treatment well. Four week follow-up with [place]v. Staff Physician BENSNO PIERRE M.D. / 52:22 PM Electronically Signed cc: Luna Cope [address] [place], [place] [id number] [facility] documented in this encounterMercy Memorial Hospital01-14-2025 NoteShelby [facility]01-07-2025 NoteS[facility]01-07-2025 History of Present illness Narrative* Benson Pierre MD - 04/07/2024 2:17 PM EST Radiation Oncology - On Treatment Review (OTR) Note PATIENT NAME: Radha Witt PATIENT DIAGNOSIS: Stage IB, pT1b pN0 (sn), grade 3 invasive ductal carcinoma of the left breast s/p left breast lumpectomy and sentinel node biopsy on 11/12/23. It's ER negative (<1%), DE negative (<1%) and Her2 0. s/p adjuvant chemotherapy finished on 02/13/24. COURSE: post-operative AREA TREATED: Left breast CURRENT DOSE: 4005 cGy in 15 fx PLANNED DOSE: 5005 cGy in 20 fx Status: Post-menopausal SUBJECTIVE: She is doing well without any specific new complaints. EXAM: KPS: 100 General Appearance: Alert and oriented. No acute distress. Radiation dermatitis: mild erythema. IMAGING/LAB RESULTS: None Treatment chart checked: Yes Patient treatment site reviewed and verified:Yes Port films reviewed and current:Yes Medications started: None ASSESSMENT/PLAN: Clinically stable. Toxicity within expected parameters. Continue radiation treatment as planned. Benson Pierre MD * Margarette Adame RN - 04/07/2024 1:57 PM EST Radiation Therapy - Nursing Note (OTV) PATIENT NAME: Radha Witt PATIENT April 07, 2024 [facility] FACILITY/LOCATION: [facility] NOTE TYPE: BREAST Subjective Data skin is more pink now Additional Data Do you want to see a Accounting Teacher? No Status: Post-menopausal. Stress Scale: On a scale of 0 to 10, what number best describes how much distress you have experienced in the past week?(0 being no distress and 10 being extreme distress) 2 Social work notified: Pt denied need to see social media executive at this time. Nursing Assessment Fatigue: none Appetite: good Nutritional Intake: Regular oral intake. Weight Gain/Loss: No Ambulatory weight history: Last 6 Encounter Wt Readings: Date: Wt: 03/24/2024 68.5 kg (151 lb) 03/24/2024 73 kg (161 lb) 02/19/2024 72.6 kg (160 lb 0.9 oz) 02/13/2024 74.4 kg (164 lb) 02/07/2024 73.5 kg (162 lb) 01/21/2024 76.2 kg (168 lb) Nausea:None Vomiting: None Bowel Function: normal bowel movements Erythema/Hyperpigmentation:mild Desquamation:none Rash:none Skin Care: Aquaphor Skin Sensation: Within Normal Limits Focused Assessment BREAST: Lymphedema Assessment: Is the patient noting any swelling? No. SIGNED by: Margarette Adame RN documented in this encounterMercy Memorial Hospital01-07-2025 NoteShelby Memorial Hospital12-31-2024 NoteShelby [facility] Hospital12-31-2024 History of Present illness Narrative* Margarette Adame RN - 03/31/2024 2:01 PM EST Radiation Therapy - Nursing Note (OTV) PATIENT NAME: Radha Witt PATIENT March 31, 2024 [facility] FACILITY/LOCATION: [facility] NOTE TYPE: BREAST Subjective Data no complaints Additional Data Do you want to see a Accounting Teacher? No Status: Post-menopausal. Stress Scale: On a scale of 0 to 10, what number best describes how much distress you have experienced in the past week?(0 being no distress and 10 being extreme distress) 2 Social work notified: Pt denied need to see social media executive at this time. Nursing Assessment Fatigue: none Appetite: good Nutritional Intake: Regular oral intake. Weight Gain/Loss: No Ambulatory weight history: Last 6 Encounter Wt Readings: Date: Wt: 03/24/2024 68.5 kg (151 lb) 03/24/2024 73 kg (161 lb) 02/19/2024 72.6 kg (160 lb 0.9 oz) 02/13/2024 74.4 kg (164 lb) 02/07/2024 73.5 kg (162 lb) 01/21/2024 76.2 kg (168 lb) Nausea:None Vomiting: None Bowel Function: normal bowel movements Erythema/Hyperpigmentation:none Desquamation:none Rash:none Skin Care: Aquaphor Skin Sensation: Within Normal Limits Focused Assessment BREAST: Not applicable. SIGNED by: Margarette Adame RN * Benson Pierre MD - 03/31/2024 1:58 PM EST Radiation Oncology - On Treatment Review (OTR) Note PATIENT NAME: Radha Witt PATIENT DIAGNOSIS: Stage IB, pT1b pN0 (sn), grade 3 invasive ductal carcinoma of the left breast s/p left breast lumpectomy and sentinel node biopsy on 11/12/23. It's ER negative (<1%), DE negative (<1%) and Her2 0. s/p adjuvant chemotherapy finished on 02/13/24. COURSE: post-operative AREA TREATED: Left breast CURRENT DOSE: 2937 cGy in 11 fx PLANNED DOSE: 5005 cGy in 20 fx Status: Post-menopausal SUBJECTIVE: She is doing well without any specific new complaints. EXAM: KPS: 100 General Appearance: Alert and oriented. No acute distress. Radiation dermatitis: No IMAGING/LAB RESULTS: None Treatment chart checked: Yes Patient treatment site reviewed and verified:Yes Port films reviewed and current:Yes Medications started: None ASSESSMENT/PLAN: Clinically stable. No signs of toxicity. Continue radiation treatment as planned. Benson Pierre MD documented in this encounterMercy Memorial Hospital12-31-2024 NoteShelby [facility] Hospital12-24-2024 NoteS[facility]12-24-2024 History of Present illness Narrative* Glen Iglesias MD - 03/24/2024 10:05 AM EST (Elements copied from my note dated February 07, 2024, have been reviewed and updated where appropriate, and all reflect current assessment and medical decision making from today's encounter, 2023) HISTORY OF PRESENT ILLNESS: Radha Witt is a 73 year old female referred for medical oncology care after new diagnosis left triple negative breast cancer. We discussed role of systemic chemotherapy in management of this entity. Reviewed imaging thus far: cT1bN0 with additional enhancement posteriorly on breast MRI Multiple additional lesion noted on breast MRI, biopsies pending. History uterine cancer [facility] BSO 2 Discussed genetic counseling, she has no children of siblings, but will consider. lumpectomy 11-12-23 pT1bN0 grade 3 triple negative Here for follow up post 4 cycles adjuvant TC completed 02-13-24 . 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 Skin better, fingernails lifting a bit. CLINICAL IMPRESSION: Early stage left TNBC stage I Post lumpectomy RECOMMENDATION/PLAN: 1. Post TC x 4, per [facility]. 2. RT per Dr Pierre 3. Se back November 2024 (she sees Pk Jamil in May 2024 after breast MRI). Written and verbal health teaching given to patient, patient verbalizes understanding and agrees with treatment plan. PAST MEDICAL HISTORY Diagnosis Date Abnormal mammogram of left breast 08/22/2023 08/27/23 abnormal diagnostic left breast ultrasound. 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 Difficult intravenous access 04/03/2021 Diverticulitis of colon (without mention of hemorrhage)(562.11) Essential hypertension, benign on Toprol Female stress incontinence Migraine with aura, without mention of intractable migraine without mention of status migrainosus Nonspecific (abnormal) findings on radiological and other examination of gastrointestinal tract PAST SURGICAL HISTORY Procedure Laterality Date BREAST SURGERY HX biopies as teenager and early 30s, small lumpectomy BX BREAST W/DEVICE 1ST LESION STEREOTACTIC GUID Right 01/31/2017 Benign microcalcifications and a fibroadenoma BX OF BREAST; INCISIONAL 2023 COLON SURGERY HX 04/04/2021 LAPAROSCOPIC COLECTOMY SIGMOID COLON W/ COLORECTAL ANASTOMOSIS COLONOSCOPY FLX DX W/COLLJ SPEC WHEN PFRMD 12/20/2006 COLONOSCOPY FLX DX W/COLLJ SPEC WHEN PFRMD 12/20/2016 Colonoscopy COLONOSCOPY FLX DX W/COLLJ SPEC WHEN PFRMD 03/16/2021 PAST SURGICAL HISTORY OF breast biopsies x 2 SKIN BIOPSY HX TONSILLECTOMY PRIMARY/SECONDARY <AGE 14 TOTAL ABDOMINAL HYSTERECT W/WO RMVL TUBE OVARY Hysterectomy, NEO uterine cancer US BREAST NEEDLE CORE BIOPSY LT Left 09/2023 FAMILY HISTORY Problem Relation Age of Onset Cancer Mother uterine Heart Mother Heart Father Hypertension Father Diabetes Father type II other (Multiple myloma) Father other (Fistula) Maternal Grandmother other (Hemochromatosis) Paternal Uncle Anesthesia Problems No Family History Social History Tobacco Use Smoking status: Never Smokeless tobacco: Never Vaping Use Vaping status: Never Used Substance Use Topics Alcohol use: Yes Comment: rare Drug use: No ALLERGIES: ALLERGIES Allergen Reactions Adhesive Rash bandaids Tetracyclines Rash CURRENT OUTPATIENT MEDICATIONS: cyclobenzaprine (FLEXERIL) 5 mg tablet Take 1 tablet by mouth two times a day as needed. ondansetron (ZOFRAN) 8 mg tablet Take 1 tablet by mouth every 8 hours as needed. acetaminophen 300 mg-caffeine 40 mg-butalbital 50 mg (FIORICET) per capsule Take 1 capsule by mouthevery 4 hours as needed for headache. aspirin, enteric coated (ASPIRIN, ENTERIC COATED) 81 mg EC tablet Take 81 mg by mouth once daily. acetaminophen (TYLENOL) 325 mg tablet Take 2 tablets by mouth every 4 hours as needed for pain. calcium carbonate/vitamin D3 (CALCIUM 600 + D ORAL) Take 1 tablet by mouth four times daily. atorvastatin 10 mg tablet Take 10 mg by mouth once daily. metoprolol succinate XL (TOPROL XL) 50 mg ORAL 24 hr tablet Take 1 tablet by mouth once daily. dexAMETHasone (DECADRON) 4 mg tablet Take 5 tablets 12 and 6 hours prior to chemotherapy treatment. ZINC ORAL Take 50 mg by mouth once daily. MULTIVITAMIN TABLET Take 1 tablet by mouth once daily. REVIEW OF SYSTEMS: GENERAL: No fever, night sweats, weight loss or malaise. All other reviewed and negative other than HPI. PHYSICAL EXAMINATION: VITAL SIGNS: BP 115/71 Pulse 66 Temp (Src) 97 (Temporal) Wt 161 lb (73.0kg) SpO2 99% LMP 04/07/2004 GENERAL APPEARANCE: Well appearing, in no acute distress, alert and oriented x3, well-hydrated, well nourished. I spent a total of 30 minutes on the date of the service which included preparing to see the patient, [id number] patient care, completing clinical documentation, obtaining and/or reviewing separately obtained history, counseling and educating the patient/family/caregiver, communicating with other HCPs (not separately reported), independently interpreting results (not separately reported), and communicating results to the patient/family/caregiver. Electronically Signed: Glen Iglesias MD March 24, 2024 documented in this encounterMercy [facility] Hospital12-24-2024 NoteShelby [facility]12-24-2024 History of Present illness Narrative* Margarette Adame, ABIEL - 03/24/2024 9:37 AM EST Radiation Therapy - Nursing Note (OTV) PATIENT NAME: Radha Witt PATIENT March 24, 2024 [facility] FACILITY/LOCATION: [facility] NOTE TYPE: BREAST Subjective Data no complaints Additional Data Do you want to see a Accounting Teacher? No Status: Post-menopausal. Stress Scale: On a scale of 0 to 10, what number best describes how much distress you have experienced in the past week?(0 being no distress and 10 being extreme distress) 2 Social work notified: Pt denied need to see social media executive at this time. Nursing Assessment Fatigue: none Appetite: good Nutritional Intake: Regular oral intake. Weight Gain/Loss: Not applicable Ambulatory weight history: Last 6 Encounter Wt Readings: Date: Wt: 02/19/2024 72.6 kg (160 lb 0.9 oz) 02/13/2024 74.4 kg (164 lb) 02/07/2024 73.5 kg (162 lb) 01/21/2024 76.2 kg (168 lb) 01/17/2024 75.8 kg (167 lb) 01/05/2024 74.7 kg (164 lb 10.9 oz) Nausea:None Vomiting: None Bowel Function: normal bowel movements Erythema/Hyperpigmentation:none Desquamation:none Rash:none Skin Care: Aquaphor Skin Sensation: Within Normal Limits Focused Assessment BREAST: Not applicable. SIGNED by: Margarette Adame RN * Gildardo Neri MD - 03/24/2024 9:30 AM EST Radiation Oncology - On Treatment Review (OTR) Note PATIENT NAME: Radha Witt PATIENT DIAGNOSIS: Stage IB, pT1b pN0 (sn), grade 3 invasive ductal carcinoma of the left breast s/p left breast lumpectomy and sentinel node biopsy on 11/12/23. It's ER negative (<1%), DE negative (<1%) and Her2 0. s/p adjuvant chemotherapy finished on 02/13/24. COURSE: post-operative AREA TREATED: Left breast CURRENT DOSE: 1869 cGy in 7 fx PLANNED DOSE: 5005 cGy in 20 fx Status: Post-menopausal SUBJECTIVE: Ms. Huffman continues to do well without any specific new complaints. EXAM: KPS: 100 General Appearance: Alert and oriented. No acute distress. Radiation dermatitis: No IMAGING/LAB RESULTS: None Treatment chart checked: Yes Patient treatment site reviewed and verified:Yes Port films reviewed and current:Yes Medications started: None ASSESSMENT/PLAN: Clinically stable. No signs of toxicity. Continue radiation treatment as planned. Gildardo Neri MD documented in this encounterMercy Memorial Hospital12-24-2024 NoteShelby [facility]12-17-2024 NoteShel[facility]12-17-2024 History of Present illness Narrative* Benson Pierre MD - 03/17/2024 1:59 PM EST Radiation Oncology - On Treatment Review (OTR) Note PATIENT NAME: Radha Witt PATIENT DIAGNOSIS: Stage IB, pT1b pN0 (sn), grade 3 invasive ductal carcinoma of the left breast s/p left breast lumpectomy and sentinel node biopsy on 11/12/23. It's ER negative (<1%), DE negative (<1%) and Her2 0. s/p adjuvant chemotherapy finished on 02/13/24. COURSE: post-operative AREA TREATED: Left breast CURRENT DOSE: 534 cGy in 2 fx PLANNED DOSE: 5005 cGy in 20 fx Status: Post-menopausal SUBJECTIVE: She is doing well without any specific new complaints. EXAM: KPS: 100 General Appearance: Alert and oriented. No acute distress. Radiation dermatitis: No IMAGING/LAB RESULTS: None Treatment chart checked: Yes Patient treatment site reviewed and verified:Yes Port films reviewed and current:Yes Medications started: None ASSESSMENT/PLAN: Clinically stable. No signs of toxicity. Continue radiation treatment as planned. Benson Pierre MD * Margarette Adame RN - 03/17/2024 1:53 PM EST Radiation Therapy - Nursing Note (OTV) PATIENT NAME: Radha Witt PATIENT March 17, 2024 [facility] FACILITY/LOCATION: [facility] NOTE TYPE: BREAST Subjective Data no complaints Additional Data Do you want to see a Accounting Teacher? No Status: Post-menopausal. Stress Scale: On a scale of 0 to 10, what number best describes how much distress you have experienced in the past week?(0 being no distress and 10 being extreme distress) 0 Social work notified: Pt denied need to see social media executive at this time. Nursing Assessment Fatigue: none Appetite: good Nutritional Intake: Regular oral intake. Weight Gain/Loss: Not applicable Ambulatory weight history: Last 6 Encounter Wt Readings: Date: Wt: 02/19/2024 72.6 kg (160 lb 0.9 oz) 02/13/2024 74.4 kg (164 lb) 02/07/2024 73.5 kg (162 lb) 01/21/2024 76.2 kg (168 lb) 01/17/2024 75.8 kg (167 lb) 01/05/2024 74.7 kg (164 lb 10.9 oz) Nausea:None Vomiting: None Bowel Function: normal bowel movements Erythema/Hyperpigmentation:none Desquamation:none Rash:none Skin Care: Aquaphor Skin Sensation: Within Normal Limits Focused Assessment BREAST: Lymphedema Assessment: Is the patient noting any swelling? No. SIGNED by: Margarette Adame RN documented in this encounterMercy Memorial Hospital12-17-2024 NoteShelby [facility]12-11-2024 NoteShel[facility]12-11-2024 History of Present illness Narrative* Margarette Adame RN - 03/11/2024 11:38 AM EST Radiation Therapy - Patient Education Note PATIENT NAME: Radha Witt PATIENT March 11, 2024 [facility] FACILITY/LOCATION: [facility] READINESS TO LEARN Cognitive Ability: Alert and oriented Motivation to learn: Eager Family Support: High - Very involved in pt care Instruction provide to: Patient and Family member Patient learns best by: Individual Instruction Written Instruction - Hand-outs Verbal Instruction Factors effecting learning: None Physical limitations effecting learning: None LEARNING RESPONSE Diagnosis: Pt simulated today for radiation therapy to left breast. Education Topic/Teaching Points: Radiation therapy, Side effects, and OTV: Method of instruction: Teach Back skin care Individual instruction Written instruction/Handouts Verbal instruction Patient /Family response: Patient and family verbalized understanding of radiation treatments, sideeffects, OTV, and transportation. Follow-up plan: Complete - No need for follow-up Contact information given. Supplemental material: Informational handouts on Fatigue, Skin changes, and ABC Handout. Referral (recommendation): None, Pt denied need for social work, van service, and woods superintendent. Patient has an Onbody or Implanted device: No Signed by: Margarette Adame RN documented in this encounterMercy Memorial Hospital12-11-2024 History of Present illness Narrative* Benson Pierre MD - 03/11/2024 12:00 AM EST RADHA WITT [id number] 03/11/2024 [facility] Department of Radiation Oncology [facility] RADIATION ONCOLOGY SIMULATION NOTE DATE OF SIMULATION: 03/11/2024 MACHINE: [employer]oom[employer] Definition CT Simulator Diagnosis: Stage IB, pT1b pN0 (sn), grade 3 invasive ductal carcinoma of the left breast s/p left breast lumpectomy and sentinel node biopsy on 11/12/23. It's ER negative (<1%), DE negative (<1%) and Her2 0. s/p adjuvant chemotherapy finished on 02/13/24. AREA:Left breast PATIENT POSITION: Supine. CONTRAST: None PROTOCOL: None BLOCKING: Custom blocking to be determined at treatment planning. FIXATION DEVICE: In order to achieve accurate and reproducible treatments, the patient is to be immobilized with orfit board system and ABC. PROCEDURE: A time-out was conducted and recorded by the therapist. Patient was simulated on the CT scanner for external beam radiation therapy. Treatment site was marked by the simulation therapist. ASSESSMENT/PLAN: Patient tolerated simulation procedure well. Treatments will be initiated after treatment planning. The patient is scheduled for a verification simulation on the treatment machine toensure proper set-up and field arrangement is correct prior to the first treatment of primary and boost mckay if applicable. Electronically Signed Benson Pierre M.D./jasmin 0:05 AM documented in this encounterMercy Memorial Hospital12-11-2024 History of Present illness Narrative* Benson Pierre MD - 03/11/2024 12:00 AM EST RADHA WITT [id number] 03/11/2024 [facility] Department of Radiation Oncology Treatment Planning Note For reasons stated in the consult note, Radha Witt is a candidate for radiation therapy. Based onreview and interpretation of the relevant diagnostic studies together with the exam findings, [place] was simulated on 03/11/2024 at which time the target volume and/or requisite mckay were delineated, as indicated in the simulation note, to be treated according to the prescription. The treatment target and organs at risk were contoured on the simulation scan. After reviewing multiple treatment plans with dosimetry, the best plan was approved to deliver the prescribed course of radiation to the target area using 3D planning to allow for the best isodose distribution, treating to the 100% isodose line with 10MV and 2 segmented mckay. Custom MLC asym jawswere the treatment device(s) used to shape/modify the beams. Limiting dose to normal tissue was confirmed upon review of the calculated dose volume histogram. A completed summary of this plan dated 03/12/2024 incorporated herein by reference includes dose, beam arrangements, energy, blocking, isodose distribution, and/or ports and DVH. Electronically Signed Benson Pierre M.D. 0:04 AM documented in this encounterMercy Memorial Hospital12-11-2024 NoteShelby Memorial Hospital12-11-2024 NoteShel[facility]12-05-2024 Telephone encounter Note* Telephone Encounter - Olivia Montana - 03/05/2024 4:43 PM EST Called patient and scheduled as directed [facility]12-05-2024 Miscellaneous Notes* Telephone Encounter - Olivia Montana - 03/05/2024 4:43 PM EST Called patient and scheduled as directed * Telephone Encounter - Brii Fernández RN - 03/05/2024 4:31 PM EST Patient needs CBC/CMP/OV with Dr. Iglesias in [facility]. Whatever works with patient's schedule. Geno Fernández RN documented in this encounterMercy Memorial Hospital12-05-2024 Telephone encounter Note * Telephone Encounter - Brii Fernández RN - 03/05/2024 4:31 PM EST Patient needs CBC/CMP/OV with Dr. Iglesias in [facility]. Whatever works with patient's schedule. Geno Fernández RN [facility] Work Phone: [phone]) 546-846512-04-2024 NoteShelby Memorial Hospital12-04-2024 History of Present illness Narrative* Benson Pierre MD - 03/04/2024 10:38 AM EST AMBULATORY TELEPHONE VISIT Radha Witt has consented to this telephone encounter. Persons Present: patient and daughter (adult) Chief Complaint/Reason: To start radiation treatment for her breast cancer. HPI: Stage IB, pT1b pN0 (sn), grade 3 invasive ductal carcinoma of the left breast s/p left breast lumpectomy and sentinel node biopsy on 11/12/23. It's ER negative (<1%), DE negative (<1%) and Her2 0. s/p adjuvant chemotherapy finished on 02/13/24. After I saw her in October, she underwent 4 cycles of TC finished on 02/15/24. 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 Otherwise, she tolerated chemotherapy well. She is ready now to start radiation treatment. Data Reviewed: None. Assessment: Stage IB, pT1b pN0 (sn), grade 3 invasive ductal carcinoma of the left breast s/p left breast lumpectomy and sentinel node biopsy on 11/12/23. It's ER negative (<1%), DE negative (<1%) and Her2 0. s/p adjuvant chemotherapy finished on 02/13/24. Plan: Will start radiation treatment to the left breast. I answered all her questions. Total Time Spent: 5 minutes Benson Pierre MD documented in this encounterMercy Memorial Hospital11-20-2024 NoteShelby Memorial Hospital11-20-2024 History of Present illness Narrative* Luna Cope MD - 02/19/2024 10:30 AM EST Patient presents with: 6 Month Exam HPI: Patient presents today for office visit for follow up. HTN: Continues on Metoprolol 50 mg daily. Monitors BP occ. Stable. Denies chest pain and shortness of breath. Gets headaches. Fewer than usual. Continues on Fioricet prn. No dizziness. Denies palpitations and syncope. No edema. Just completed her 4th and final chemo treatment. Follows with hem/onc. Has some redness and mild swelling to her feet from chemo. Redness has gotten better but the bottoms of her feet are peeling. HLD: No myalgias Follows with Derm. Has spot on her upper left thigh. Seen derm for this in past. Spot has gotten flaky. MEDICATIONS: Current Outpatient Medications Medication Sig cyclobenzaprine (FLEXERIL) 5 mg tablet Take 1 tablet by mouth two times a day as needed. dexAMETHasone (DECADRON) 4 mg tablet Take 5 tablets 12 and 6 hours prior to chemotherapy treatment. ondansetron (ZOFRAN) 8 mg tablet Take 1 tablet by mouth every 8 hours as needed. acetaminophen 300 mg-caffeine 40 mg-butalbital 50 mg (FIORICET) per capsule Take 1 capsule by mouthevery 4 hours as needed for headache. aspirin, enteric coated (ASPIRIN, ENTERIC COATED) 81 mg EC tablet Take 81 mg by mouth once daily. acetaminophen (TYLENOL) 325 mg tablet Take 2 tablets by mouth every 4 hours as needed for pain. ZINC ORAL Take 50 mg by mouth once daily. calcium carbonate/vitamin D3 (CALCIUM 600 + D ORAL) Take 1 tablet by mouth four times daily. atorvastatin 10 mg tablet Take 10 mg by mouth once daily. metoprolol succinate XL (TOPROL XL) 50 mg ORAL 24 hr tablet Take 1 tablet by mouth once daily. MULTIVITAMIN TABLET Take 1 tablet by mouth once daily. No current facility-administered medications for this visit. ALLERGIES: ALLERGIES Allergen Reactions Adhesive Rash bandaids Tetracyclines Rash PAST MEDICAL HISTORY Diagnosis Date Abnormal mammogram of left breast 08/22/2023 08/27/23 abnormal diagnostic left breast ultrasound. 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 Difficult intravenous access 04/03/2021 Diverticulitis of colon (without mention of hemorrhage)(562.11) Essential hypertension, benign on Toprol Female stress incontinence Migraine with aura, without mention of intractable migraine without mention of status migrainosus Nonspecific (abnormal) findings on radiological and other examination of gastrointestinal tract PAST SURGICAL HISTORY Procedure Laterality Date BREAST SURGERY HX biopies as teenager and early 30s, small lumpectomy BX BREAST W/DEVICE 1ST LESION STEREOTACTIC GUID Right 01/31/2017 Benign microcalcifications and a fibroadenoma BX OF BREAST; INCISIONAL 2023 COLON SURGERY HX 04/04/2021 LAPAROSCOPIC COLECTOMY SIGMOID COLON W/ COLORECTAL ANASTOMOSIS COLONOSCOPY FLX DX W/COLLJ SPEC WHEN PFRMD 12/20/2006 COLONOSCOPY FLX DX W/COLLJ SPEC WHEN PFRMD 12/20/2016 Colonoscopy COLONOSCOPY FLX DX W/COLLJ SPEC WHEN PFRMD 03/16/2021 PAST SURGICAL HISTORY OF breast biopsies x 2 SKIN BIOPSY HX TONSILLECTOMY PRIMARY/SECONDARY <AGE 14 TOTAL ABDOMINAL HYSTERECT W/WO RMVL TUBE OVARY Hysterectomy, NEO uterine cancer US BREAST NEEDLE CORE BIOPSY LT Left 09/2023 FAMILY HISTORY Problem Relation Age of Onset Cancer Mother uterine Heart Mother Heart Father Hypertension Father Diabetes Father type II other (Multiple myloma) Father other (Fistula) Maternal Grandmother other (Hemochromatosis) Paternal Uncle Anesthesia Problems No Family History Social History Tobacco Use Smoking status: Never Smokeless tobacco: Never Vaping Use Vaping status: Never Used Substance Use Topics Alcohol use: Yes Comment: rare Drug use: No Reviewed current medications, allergies, past medical history, surgical history, family history andsocial history today. REVIEW OF SYSTEMS All other reviewed and negative other than HPI. HEALTH MAINTENANCE: Reviewed health maintenance issues today and recommended the following in detail. BP Controlled (<130/80) Never done RSV Vaccine(1 - Risk 60-74 years 1-dose series) Never done VITALS: BP 116/60 Pulse 84 Ht 172.7 cm (5' 8) Wt 72.6 kg (160 lb 0.9 oz) LMP 04/07/2004 SpO2 98% BMI 24.34 kg/m Last 4 Encounter Wt Readings: Date: Wt: 02/19/2024 72.6 kg (160 lb 0.9 oz) 02/13/2024 74.4 kg (164 lb) 02/07/2024 73.5 kg (162 lb) 01/21/2024 76.2 kg (168 lb) PHYSICAL EXAMINATION: General appearance: Well appearing, alert, in no acute distress, well-hydrated, well nourished. Skin: seborrheic keratosis on left thigh. Head: Normocephalic, no masses, lesions, tenderness or abnormalities Lungs: Lungs clear to auscultation. No wheezing, rhonchi, rales Heart: RRR without murmur, gallop, or rubs. No ectopy Abdomen: Normal abdominal exam, Abdomen soft, non-tender. Bowel sounds normal. No masses, organomegaly Extremities: No deformities, edema, skin discoloration, clubbing or cyanosis. Good capillary refill. ASSESSMENT/PLAN: 1. Essential hypertension, benign - ICD9: 401.1, ICD10: I10 (primary diagnosis) - Controlled - Continue current medications 2. Other hyperlipidemia - ICD9: 272.4, ICD10: E78.49 - stable. Will get labs. 3. MVP (mitral valve prolapse) - ICD9: 424.0, ICD10: I34.1 - stable. 4. Malignant neoplasm of lower-inner quadrant of left breast in female, estrogen receptor negative (HCC) - ICD9: 174.3, V86.1, ICD10: C50.312, Z17.1 - stable. Per Dr Andrade 6. Osteopenia of multiple sites - ICD9: 733.90, ICD10: M85.89 - up to date on testing. 7. At risk for lymphedema - ICD9: V49.89, ICD10: Z91.89 -she will be getting a bracelet for avoiding bp and blood draws 8. History of uterine cancer - ICD9: V10.42, ICD10: Z85.42 - follows with space engineer regularly. Luna Cope MD documented in this encounterMercy Memorial Hospital11-12-2024 Telephone encounter Note * Telephone Encounter - Brii Fernández RN - 02/11/2024 9:10 AM EST Call to patient, has been drinking water and tolerating. No nausea but has not tried to eat anything. She still has cramping that is somewhat constant from the waistline up. Rates 4/10. Denies fever/chills or other issues. Asked if she feels nervous about treatment today and she states I was wondering if that is part of it. She states she is willing to come in today or be re-scheduled. Spoke with Dr. Iglesias and ok to re-schedule on per chemo nurse. Message was already sent to PSR to call. Geno Fernández RN [facility] Work Phone: [phone]) 406-455711-12-2024 Miscellaneous Notes* Telephone Encounter - Brii Fernández RN - 02/11/2024 9:10 AM EST Call to patient, has been drinking water and tolerating. No nausea but has not tried to eat anything. She still has cramping that is somewhat constant from the waistline up. Rates 4/10. Denies fever/chills or other issues. Asked if she feels nervous about treatment today and she states I was wondering if that is part of it. She states she is willing to come in today or be re-scheduled. Spoke with Dr. Iglesias and ok to re-schedule on per chemo nurse. Message was already sent to PSR to call. Geno Fernández RN * Telephone Encounter - Yashira Vidales LPN - 02/11/2024 8:07 AM EST Violet daughter calls, she is with the pt, she had a sudden onset of vomiting x 1 and diarrhea x 2 shortly after eating her breakfast.. She is to have treatment today at 0830. No fevers. She is unawareof being exposed to anyone who has been ill. Has stomach cramping, but no nausea. She had no issues yesterday. Please advise. .JACQUIE Hogan [phone] documented in this encounterMercy Memorial Hospital11-12-2024 Telephone encounter Note * Telephone Encounter - Yashira Vidales LPN - 02/11/2024 8:07 AM EST Violet daughter calls, she is with the pt, she had a sudden onset of vomiting x 1 and diarrhea x 2 shortly after eating her breakfast.. She is to have treatment today at 0830. No fevers. She is unawareof being exposed to anyone who has been ill. Has stomach cramping, but no nausea. She had no issues yesterday. Please advise. .JACQUIE Hogan [phone] [facility]11-08-2024 NoteShelby [facility] Hospital11-08-2024 History of Present illness Narrative* Glen Iglesias MD - 02/07/2024 12:06 PM EST (Elements copied from my note dated November 27, 2023, have been reviewed and updated where appropriate, and all reflect current assessment and medical decision making from today's encounter, February 07, 2024) HISTORY OF PRESENT ILLNESS: Radha Witt is a 73 year old female referred for medical oncology care after new diagnosis left triple negative breast cancer. We discussed role of systemic chemotherapy in management of this entity. Reviewed imaging thus far: cT1bN0 with additional enhancement posteriorly on breast MRI Multiple additional lesion noted on breast MRI, biopsies pending. History uterine cancer [facility] 2-3-05 Discussed genetic counseling, she has no children of siblings, but will consider. lumpectomy 11-12-23 pT1bN0 grade 3 triple negative Here for follow up prior to cycle 4 TC. Doing well, mild nausea, no vomiting. 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 Notes peeling of skin on soles after cycle 3. CLINICAL IMPRESSION: Early stage left TNBC. RECOMMENDATION/PLAN: 1. Plan TC x 4, per [facility]. Plan dose reduction given progressive neuropathy. Written and verbal health teaching given to patient, patient verbalizes understanding and agrees with treatment plan. PAST MEDICAL HISTORY Diagnosis Date Abnormal mammogram of left breast 08/22/2023 08/27/23 abnormal diagnostic left breast ultrasound. 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 Difficult intravenous access 04/03/2021 Diverticulitis of colon (without mention of hemorrhage)(562.11) Essential hypertension, benign on Toprol Female stress incontinence Migraine with aura, without mention of intractable migraine without mention of status migrainosus Nonspecific (abnormal) findings on radiological and other examination of gastrointestinal tract PAST SURGICAL HISTORY Procedure Laterality Date BREAST SURGERY HX biopies as teenager and early 30s, small lumpectomy BX BREAST W/DEVICE 1ST LESION STEREOTACTIC GUID Right 01/31/2017 Benign microcalcifications and a fibroadenoma BX OF BREAST; INCISIONAL 2023 COLON SURGERY HX 04/04/2021 LAPAROSCOPIC COLECTOMY SIGMOID COLON W/ COLORECTAL ANASTOMOSIS COLONOSCOPY FLX DX W/COLLJ SPEC WHEN PFRMD 12/20/2006 COLONOSCOPY FLX DX W/COLLJ SPEC WHEN PFRMD 12/20/2016 Colonoscopy COLONOSCOPY FLX DX W/COLLJ SPEC WHEN PFRMD 03/16/2021 PAST SURGICAL HISTORY OF breast biopsies x 2 SKIN BIOPSY HX TONSILLECTOMY PRIMARY/SECONDARY <AGE 14 TOTAL ABDOMINAL HYSTERECT W/WO RMVL TUBE OVARY Hysterectomy, NEO uterine cancer US BREAST NEEDLE CORE BIOPSY LT Left 09/2023 FAMILY HISTORY Problem Relation Age of Onset Cancer Mother uterine Heart Mother Heart Father Hypertension Father Diabetes Father type II other (Multiple myloma) Father other (Fistula) Maternal Grandmother other (Hemochromatosis) Paternal Uncle Anesthesia Problems No Family History Social History Tobacco Use Smoking status: Never Smokeless tobacco: Never Vaping Use Vaping status: Never Used Substance Use Topics Alcohol use: Yes Comment: rare Drug use: No ALLERGIES: ALLERGIES Allergen Reactions Adhesive Rash bandaids Tetracyclines Rash CURRENT OUTPATIENT MEDICATIONS: cyclobenzaprine (FLEXERIL) 5 mg tablet Take 1 tablet by mouth two times a day as needed. dexAMETHasone (DECADRON) 4 mg tablet Take 5 tablets 12 and 6 hours prior to chemotherapy treatment. ondansetron (ZOFRAN) 8 mg tablet Take 1 tablet by mouth every 8 hours as needed. acetaminophen 300 mg-caffeine 40 mg-butalbital 50 mg (FIORICET) per capsule Take 1 capsule by mouthevery 4 hours as needed for headache. aspirin, enteric coated (ASPIRIN, ENTERIC COATED) 81 mg EC tablet Take 81 mg by mouth once daily. acetaminophen (TYLENOL) 325 mg tablet Take 2 tablets by mouth every 4 hours as needed for pain. ZINC ORAL Take 50 mg by mouth once daily. calcium carbonate/vitamin D3 (CALCIUM 600 + D ORAL) Take 1 tablet by mouth four times daily. atorvastatin 10 mg tablet Take 10 mg by mouth once daily. metoprolol succinate XL (TOPROL XL) 50 mg ORAL 24 hr tablet Take 1 tablet by mouth once daily. MULTIVITAMIN TABLET Take 1 tablet by mouth once daily. REVIEW OF SYSTEMS: GENERAL: No fever, night sweats, weight loss or malaise. All other reviewed and negative other than HPI. PHYSICAL EXAMINATION: VITAL SIGNS: BP 125/81 Pulse 92 Temp (Src) 98.2 (Temporal) Wt 162 lb (73.5kg) SpO2 98% LMP 04/07/2004 GENERAL APPEARANCE: Well appearing, in no acute distress, alert and oriented x3, well-hydrated, well nourished. LUNGS: CTA HEART: Reg I spent a total of 30 minutes on the date of the service which included preparing to see the patient, [id number] patient care, completing clinical documentation, obtaining and/or reviewing separately obtained history, counseling and educating the patient/family/caregiver, communicating with other HCPs (not separately reported), independently interpreting results (not separately reported), and communicating results to the patient/family/caregiver. Electronically Signed: Glen Iglesias MD February 07, 2024 documented in [facility]24 Telephone encounter Note * Telephone Encounter - Brii Fernández RN - 02/03/2024 2:51 PM EST Patient calls in today. Leaves VM. this is much better; the medication you have me taking twice daily is amazing; I have enough to get me through Saturday Geno Fernández RN Updated Audie Hemphill CNP. She would like patient stop DXM at this point. Can discuss using againwith next treatment at next OV. Call to patient and given above information. She states understanding and agreeable with plan. She denies further needs/concerns. Geno Fernández RN [facility] Work Phone: 1(432) 802-902211-04-2024 Miscellaneous Notes* Telephone Encounter - Brii Fernández RN - 02/03/2024 2:51 PM EST Patient calls in today. Leaves VM. this is much better; the medication you have me taking twice daily is amazing; I have enough to get me through Saturday Geno Fernández RN Updated Audie Hemphill CNP. She would like patient stop DXM at this point. Can discuss using againwith next treatment at next OV. Call to patient and given above information. She states understanding and agreeable with plan. She denies further needs/concerns. Geno Fernández RN * Telephone Encounter - Brii Fernández RN - 01/31/2024 3:03 PM EDT Discussed with Audie Hemphill CNP. Advised to take Dexamethasone 4mg tabs (that she has at home) BID. Geno Fernández RN Call to patient, aware of above, she confirms that she has DXM. She repeated dosing and states understanding. Advised to continue with Tylenol for pain, use Benedryl for itching if needed, continue heavy cream on hand/feet, Vaseline if she has. She states understanding and states she started using Vaseline last pm. She will call on Saturday with an update. Geno Fernández RN * Telephone Encounter - Brii Fernández RN - 01/31/2024 11:44 AM EDT Care Coordination Triage Note [facility] Situation: Patient reports Other Hand/Foot Syndrome Background: Disease, current pertinent medications/treatments Taxotere/Cytoxan, Cycle 3 01/21/24 Assessment: Patient calls and leaves . States she is having symptoms again, started yesterday. Feet swelling,red and painful. Has been soaking in cool water. Hands are also red, swollen, peeling in small areawith some itching that not too bad. Recommendations: Per RNCC, patient directed to: Manage at home. Instructions provided. Discussed with Audie Hemphill CNP. Brii Fernández RN January 31, 2024 11:44 AM documented in this encounterMer[facility]11-01-2024 Telephone encounter Note * Telephone Encounter - Brii Fernández RN - 01/31/2024 3:03 PM EDT Discussed with Audie Hemphill CNP. Advised to take Dexamethasone 4mg tabs (that she has at home) BID. Geno Fernández RN Call to patient, aware of above, she confirms that she has DXM. She repeated dosing and states understanding. Advised to continue with Tylenol for pain, use Benedryl for itching if needed, continue heavy cream on hand/feet, Vaseline if she has. She states understanding and states she started using Vaseline last pm. She will call on Saturday with an update. Geno Fernández RN [facility]11-01-[facility] Telephone encounter Note* Telephone Encounter - Brii Fernández RN - 01/31/2024 11:44 AM EDT Care Coordination Triage Note [facility] Situation: Patient reports Other Hand/Foot Syndrome Background: Disease, current pertinent medications/treatments Taxotere/Cytoxan, Cycle 3 01/21/24 Assessment: Patient calls and leaves . States she is having symptoms again, started yesterday. Feet swelling,red and painful. Has been soaking in cool water. Hands are also red, swollen, peeling in small areawith some itching that not too bad. Recommendations: Per RNCC, patient directed to: Manage at home. Instructions provided. Discussed with Audie Hemphill CNP. Brii Fernández RN January 31, 2024 11:44 AM [facility]10-[facility] History of Present illness Narrative* Audie Hemphill - 01/17/2024 9:53 AM EDT Radha Witt 1950 12/27/2023 HISTORY OF PRESENT ILLNESS: Radha Witt is a 73 year old female referred for medical oncology care after new diagnosis left triple negative breast cancer. We discussed role of systemic chemotherapy in management of this entity. Reviewed imaging thus far: cT1bN0 with additional enhancement posteriorly on breast MRI Multiple additional lesion noted on breast MRI, biopsies pending. History uterine cancer [facility] 2-3-05 Discussed genetic counseling, she has no children of siblings, but will consider. Here for follow up, post lumpectomy 11-12-23 pT1bN0 grade 3 Interval Hx: Pt presents today with her spouse prior to C3D1 TC. She reports feeling well overall today. Denies recent fevers, chills or NS. Had issues with [facility] provided thermometer reading as high however two other thermometers that she had at home had normal temps, asymptomatic. Appears to have IV extravasation on top of R hand. Small area of redness. No warmth or ulceration. Non tender. No SOB, CP. Endorses lack of appetite on following treatment some improvement with antiemetic although denies nausea per say. No vomiting. No changes in bowel or bladder habits. Denies current headaches. No current rashes. N/T feet following treatment. States she had no issues with onpro adhesive. Facial flushing following onpro injection, lasted about a day. CLINICAL IMPRESSION: Early stage left TNBC. - labs remain stable, overall tolerating treatment well. RECOMMENDATION/PLAN: 1. Plan TC x 4, per [facility]. - continue with C3 ok to use todays labs for Saturday - soles of feet red and tender a few days following treatment no skin peeling, since resolved, coldwater soaking helped. Pt does have rx for dex at home that she has not started at this time. Discussed potential to take one 4 mg tab early am and one 4 mg tab early afternoon for 2-3 days if she hasrxn following this cycle. Pt acknowledged. All questions answered at this time. Advised to call with any questions or concerns in the meantime. PAST MEDICAL HISTORY Diagnosis Date Abnormal mammogram of left breast 08/22/2023 08/27/23 abnormal diagnostic left breast ultrasound. 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 Difficult intravenous access 04/03/2021 Diverticulitis of colon (without mention of hemorrhage)(562.11) Essential hypertension, benign on Toprol Female stress incontinence Migraine with aura, without mention of intractable migraine without mention of status migrainosus Nonspecific (abnormal) findings on radiological and other examination of gastrointestinal tract PAST SURGICAL HISTORY Procedure Laterality Date BREAST SURGERY HX biopies as teenager and early 30s, small lumpectomy BX BREAST W/DEVICE 1ST LESION STEREOTACTIC GUID Right 01/31/2017 Benign microcalcifications and a fibroadenoma BX OF BREAST; INCISIONAL 2023 COLON SURGERY HX 04/04/2021 LAPAROSCOPIC COLECTOMY SIGMOID COLON W/ COLORECTAL ANASTOMOSIS COLONOSCOPY FLX DX W/COLLJ SPEC WHEN PFRMD 12/20/2006 COLONOSCOPY FLX DX W/COLLJ SPEC WHEN PFRMD 12/20/2016 Colonoscopy COLONOSCOPY FLX DX W/COLLJ SPEC WHEN PFRMD 03/16/2021 PAST SURGICAL HISTORY OF breast biopsies x 2 SKIN BIOPSY HX TONSILLECTOMY PRIMARY/SECONDARY <AGE 14 TOTAL ABDOMINAL HYSTERECT W/WO RMVL TUBE OVARY Hysterectomy, NEO uterine cancer US BREAST NEEDLE CORE BIOPSY LT Left 09/2023 FAMILY HISTORY Problem Relation Age of Onset Cancer Mother uterine Heart Mother Heart Father Hypertension Father Diabetes Father type II other (Multiple myloma) Father other (Fistula) Maternal Grandmother other (Hemochromatosis) Paternal Uncle Anesthesia Problems No Family History Social History Tobacco Use Smoking status: Never Smokeless tobacco: Never Vaping Use Vaping status: Never Used Substance Use Topics Alcohol use: Yes Comment: rare Drug use: No ALLERGIES: ALLERGIES Allergen Reactions Adhesive Rash bandaids Tetracyclines Rash CURRENT OUTPATIENT MEDICATIONS: cyclobenzaprine (FLEXERIL) 5 mg tablet Take 1 tablet by mouth two times a day as needed. ondansetron (ZOFRAN) 8 mg tablet Take 1 tablet by mouth every 8 hours as needed. aspirin, enteric coated (ASPIRIN, ENTERIC COATED) 81 mg EC tablet Take 81 mg by mouth once daily. ZINC ORAL Take 50 mg by mouth once daily. calcium carbonate/vitamin D3 (CALCIUM 600 + D ORAL) Take 1 tablet by mouth four times daily. atorvastatin 10 mg tablet Take 10 mg by mouth once daily. metoprolol succinate XL (TOPROL XL) 50 mg ORAL 24 hr tablet Take 1 tablet by mouth once daily. MULTIVITAMIN TABLET Take 1 tablet by mouth once daily. dexAMETHasone (DECADRON) 4 mg tablet Take 5 tablets 12 and 6 hours prior to chemotherapy treatment. acetaminophen 300 mg-caffeine 40 mg-butalbital 50 mg (FIORICET) per capsule Take 1 capsule by mouthevery 4 hours as needed for headache. acetaminophen (TYLENOL) 325 mg tablet Take 2 tablets by mouth every 4 hours as needed for pain. REVIEW OF SYSTEMS: GENERAL: No fever, night sweats, weight loss or malaise. All other reviewed and negative other than HPI. All systems reviewed on 01/17/2024 with pertinent positives and negatives as outlined in the interval history. PHYSICAL EXAMINATION: VITAL SIGNS: BP 112/74 Pulse 74 Temp (Src) 97 (Temporal) Resp 16 Wt 167 lb (75.8kg) SpO2 100% LMP 04/07/2004 GENERAL APPEARANCE: Well appearing, in no acute distress, alert and oriented x3, well-hydrated, well nourished. HEENT: Normocephalic, no sclera icterus, external ears normal Chest: Clear bilaterally, no wheezes, not labored. Heart: Normal S1 and S2, no abnormal sounds Abdomen: Soft, nontender, nondistended Extremities: No edema Neurological: Grossly intact Skin: Warm and dry with, redness to back of R hand, no ulceration, no tenderness. Hematologic: no bruising or petechiae. Psychiatric: Alert and oriented x3. Emotional well-being assessment was performed. Pt denies depression, distress, and or problems with coping or adjustment. I have performed the physical exam today (01/17/2024) and have edited the note to correlate with current findings. RTC with treatment on Saturday Audie Hemphill APRN.MAORI PHYSIOTHERAPIST I spent a total of 30 minutes on the date of the service which included preparing to see the patient, [id number] patient care, completing clinical documentation, and obtaining and/or reviewing separately obtained history. Portions of this note including HPI, ROS, impression/plan may have been copied forward as to provide important historical information essential in contributing to medical decision making. Documentation has been reviewed and edited as necessary to support clinical decision making for today's visit and to reflect my own independent evaluation of this patient. documented in this encounter[facility]10-14-2024 Telephone encounter Note * Telephone Encounter - Brii Fernández RN - 01/13/2024 4:21 PM EDT Care Coordination Triage Note [facility] Situation: Patient reports Other Redness on back of right hand and heel of left palm Background: Disease, current pertinent medications/treatments Breast on Taxotere/Cytoxan Assessment: Patient states as above, started Saturday01/13/24. Redness, tender to touch on back of right hand, thinks it's getting better and not as bad as it was. Area 1.5 x.5 today. Also noted redness on palm area/heel of left hand. Denies tenderness in that area. Denies fever, open areas, other issues. States bottoms of her feet are much better. Instructed to use cold compresses and lotion to hands over the next several days and call if not getting better or worsening symptoms. Patient agreeable and denies further questions/concerns. Recommendations: Per RNCC, patient directed to: Manage at home. Instructions provided. Brii Fernández RN January 13, 2024 4:21 PM [facility] Work Phone: 1(665) 351-695810-14-2024 Miscellaneous Notes* Telephone Encounter - Brii Fernández RN - 01/13/2024 4:21 PM EDT Care Coordination Triage Note [facility] Situation: Patient reports Other Redness on back of right hand and heel of left palm Background: Disease, current pertinent medications/treatments Breast on Taxotere/Cytoxan Assessment: Patient states as above, started Saturday01/13/24. Redness, tender to touch on back of right hand, thinks it's getting better and not as bad as it was. Area 1.5 x.5 today. Also noted redness on palm area/heel of left hand. Denies tenderness in that area. Denies fever, open areas, other issues. States bottoms of her feet are much better. Instructed to use cold compresses and lotion to hands over the next several days and call if not getting better or worsening symptoms. Patient agreeable and denies further questions/concerns. Recommendations: Per RNCC, patient directed to: Manage at home. Instructions provided. Brii Fernández RN January 13, 2024 4:21 PM documented in this encounterMer[facility]10-08-2024 Telephone encounter Note * Telephone Encounter - Brii Fernández RN - 01/07/2024 1:53 PM EDT Care Coordination Triage Note [facility] Situation: Patient reports Other burning pain and redness on the bottom of her feet Background: Disease, current pertinent medications/treatments TNBC on Taxotere/Cytoxan. C2 on 12/31/23/ Assessment: Patient states pain, burning on the bottom of her feet, started Saturday and has been getting worse. States the heels are red, her pinky toe is red. She denies any edema or fever. She denies any other issues/concerns. Calling asking what she should do? Advised Tylenol for pain, cold compresses, rest/elevate feet and legs, use topical creams, can soakfeet in cool water. Ok to take Tylenol as LFT's are WNL. Patient states understanding and agreeable with plan. She will call back if any increase or worsening in symptoms. Recommendations: Per RNCC, patient directed to: Manage at home. Instructions provided. Reviewed above with Dr. Iglesias and no further instructions. Brii Fernández RN January 07, 2024 1:53 PM [facility] Work Phone: 1([phone] 562-422410-08-2024 Miscellaneous Notes* Telephone Encounter - Brii Fernández RN - 01/07/2024 1:53 PM EDT Care Coordination Triage Note [facility] Situation: Patient reports Other burning pain and redness on the bottom of her feet Background: Disease, current pertinent medications/treatments TNBC on Taxotere/Cytoxan. C2 on 12/31/23/ Assessment: Patient states pain, burning on the bottom of her feet, started Saturday and has been getting worse. States the heels are red, her pinky toe is red. She denies any edema or fever. She denies any other issues/concerns. Calling asking what she should do? Advised Tylenol for pain, cold compresses, rest/elevate feet and legs, use topical creams, can soakfeet in cool water. Ok to take Tylenol as LFT's are WNL. Patient states understanding and agreeable with plan. She will call back if any increase or worsening in symptoms. Recommendations: Per RNCC, patient directed to: Manage at home. Instructions provided. Reviewed above with Dr. Iglesias and no further instructions. Brii Fernández RN January 07, 2024 1:53 PM documented in this encounterMercy [facility]10-06-2024 Nurse Note* Roberto Dela Cruz MA - 01/05/2024 11:35 AM EDT Patient brought in 3 thermometers 1.) read 100.7 2.) read 98.7 3.) read 98.7. Patient is going to dispose of bad thermometer with the read of 100.7. Roberto Dela Cruz MA [facility]10-06-[facility] Nurse Note* Roberto Dela Cruz MA - 01/05/2024 11:35 AM EDT Patient brought in 3 thermometers 1.) read 100.7 2.) read 98.7 3.) read 98.7. Patient is going to dispose of bad thermometer with the read of 100.7. Roberto Dela Cruz MA documented in this encounterMercy [facility] Hospital10-04-2024 Telephone encounter Note * Telephone Encounter - Brii Fernández RN - 01/03/2024 3:21 PM EDT EMERGENCY ROOM CALL BACK Today's date: January 03, 2024 Patient identified by name and date of . YES Primary Cancer Diagnosis: Breast Cancer Reason for Emergency Room Visit: Fever Time of day presented to Emergency Room 722am If Sat-Saturday during business hours: Did you contact your Experimental Physicist/Provider? Yes, told to present to emergency department Patient with any new symptom issues: No Psychosocial Risk Factors: None COPIED FROM ED NOTE 01/03/24: Medical decision making narrative: Differential diagnosis includes but not limited to viral syndrome differential diagnosis includes but not limited to viral syndrome UTI pneumonia sepsis bacteremia Patient clinically appears well. Patient's white count is 20.9 and she did have Neulasta per her oncologist. COVID influenza RSV swabs are negative urinalysis negative my independent interpretation the chest x-ray is no acute process. Lactic acid normal is normal at 1.1 normal LFTs BMP within normal limits. Patient remains afebrile. I discussed the case with oncology. Should be discharged home with supportive care continue to monitor return if worsening or concerns. FOLLOW UP Patient reminded of her follow-up appointment with [facility] provider, Audie Hemphill CNP on 01/17/24: Yes Next Experimental Physicist outreach with patient scheduled? Yes, reinforced date and time Discussed: States she feels ok, no further fever. Denies any needs or concerns. PATIENT EDUCATION/REINFORCEMENT Patient verbalizes understanding of when to seek Medical Attention? YES Patient verbalizes understanding of after hours and weekend phone number? YES Patient verbalizes understanding of next outreach appointment? YES Brii Fernández RN [facility] Work Phone: 1(876) 366-703810-04-2024 Miscellaneous Notes* Telephone Encounter - Brii Fernández RN - 01/03/2024 3:21 PM EDT EMERGENCY ROOM CALL BACK Today's date: January 03, 2024 Patient identified by name and date of . YES Primary Cancer Diagnosis: Breast Cancer Reason for Emergency Room Visit: Fever Time of day presented to Emergency Room 722am If Sat-Saturday during business hours: Did you contact your Experimental Physicist/Provider? Yes, told to present to emergency department Patient with any new symptom issues: No Psychosocial Risk Factors: None COPIED FROM ED NOTE 01/03/24: Medical decision making narrative: Differential diagnosis includes but not limited to viral syndrome differential diagnosis includes but not limited to viral syndrome UTI pneumonia sepsis bacteremia Patient clinically appears well. Patient's white count is 20.9 and she did have Neulasta per her oncologist. COVID influenza RSV swabs are negative urinalysis negative my independent interpretation the chest x-ray is no acute process. Lactic acid normal is normal at 1.1 normal LFTs BMP within normal limits. Patient remains afebrile. I discussed the case with oncology. Should be discharged home with supportive care continue to monitor return if worsening or concerns. FOLLOW UP Patient reminded of her follow-up appointment with [facility] provider, Audie Hemphill CNP on 01/17/24: Yes Next Experimental Physicist outreach with patient scheduled? Yes, reinforced date and time Discussed: States she feels ok, no further fever. Denies any needs or concerns. PATIENT EDUCATION/REINFORCEMENT Patient verbalizes understanding of when to seek Medical Attention? YES Patient verbalizes understanding of after hours and weekend phone number? YES Patient verbalizes understanding of next outreach appointment? YES Brii Fernández RN documented in this encounterMercy [facility] Hospital10-01-2024 Telephone encounter Note * Telephone Encounter - Evita Pierce - 12/31/2023 8:46 AM EDT Spoke with patient and scheduled. Evita Pierce [facility]10-01-2024 Miscellaneous Notes* Telephone Encounter - Evita Pierce - 12/31/2023 8:46 AM EDT Spoke with patient and scheduled. Evita Pierce * Telephone Encounter - Dimitri Moran DO - 12/30/2023 9:22 PM EDT Needs CBC/CMP prior to chemotherapy Saturday. Dimitri Moran DO documented in this encounterMercy [facility] Hospital09-30-2024 Telephone encounter Note * Telephone Encounter - Dimitri Moran DO - 12/30/2023 9:22 PM EDT Needs CBC/CMP prior to chemotherapy Saturday. Dimitri Moran DO [facility] Work Phone: 1(975) 133-801109-30-2024 NoteS[facility]09-30-[facility]24 History of Present illness Narrative* Roberto Ulloa, PT - 12/30/2023 2:01 PM EDT Episode Visit Count: 1 Therapist That Will Accept/Oversee The Plan Of Care: Roberto Ulloa Start of Care Date: 12/30/23 Onset Date: 11/12/23 Plan of Care Certification Date: 12/30/23 Next Certification Due Date: 12/30/23 Patient Identified by Name and Date of : Yes REHABILITATION AND SPORTS THERAPY PHYSICAL THERAPY EVALUATION PLAN OF CARE: Assessment: Radha Witt presents with diagnosis of 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) and Atrisk for lymphedema that interferes with nothing . The patient presents with impairments in edema management and tissue tenderness. PROMIS (Patient-Reported Outcomes Measurement Information System) scores were reviewed and identified as within normal limits. Prognosis for therapy is Excellent due to: current objective clinical presentation, good overall health status, good support system/ coping skills . The patient will benefit from skilled therapy services to meet the goals established for this plan of care as noted below. Goals for Episode of Care: established 12/30/23 [place] in home exercise program. Patient will decrease pain rating by 2 points to meet minimal clinical important difference for numeric pain rating scale. Patient will increase active ROM of L shld to 170-180 to allow pt to to improve performance of ADLs. Perform all daily activities and family services worker without pain. Patient / family knowledgeable re: all pertinent aspects of CDT Patient / family independent with home exercise program Patient will decrease circumferential measurements by 0.5 to 1.0 cm in the following areas: L UE for decreased recurrence of infection, improved mobility, improved range of motion and allow appropriate fit in compressive garment. Patient Goals: To find out about lymphedema and if i nee dot do anything about it. Time Frame for Goals and Treatment : 12/30/23 Planned Interventions, Frequency, and Duration: Current Frequency: Discontinue Therapy Services Total Number of Visits Planned: 0 Planned Treatment Interventions: PLAN FOR NEXT VISIT: Pt will continue independently with her HEP. Sh eis discharged from therapy atthis time. Patient demonstrates good understanding of plan of care and treatment. The above goals and plan of care were discussed and agreed upon by patient/family. SUBJECTIVE: Pt notes some remaining numbness in L axilla from surgery. Feels it is currently a little smaller area than originally. She notes a bit of discomfort L UE depending on arm movements. Mostly at the L axillar region. Able to lift and hang laundry on line without difficulty. Notes she is able to knit,hold books to read, and helps her in and out of the shower and assist with don/doffing his compression socks. She denies any limitations with household activities. Patient Goals: To find out about lymphedema and if i nee dot do anything about it. Functional Limitations: nothing Prior Level of Function: Independent without limitations Relevant History Past Relevant Medical Conditions: Arthritis, Cancer, Headaches, Hypertension, Kidney Problems, Osteoporosis (diverticulitis) Right or Left Handed: Left Employment: Retired Hobbies / Interests: Knitting, reading books Home Environment Patient Lives With: Spouse (has family nearby that can assist as needed) Intake Information: Prescription present Pain: Pain Pain Level: 2 (1 to 2 at the most) Pain Location: Axilla - Left Description: (discomfort) Frequency: Intermittent Post Treatment Pain Post Treatment Pain Level: 0 PROMIS Scales T-scores: mean of general population = 50. 5 points is clinically meaningfully difference Percentiles provide an indication of how the patient's score ranks in relation to the general population. Higher percentile rankings indicate better function/quality of life. 50th percentile is the average of the general population and indicates half of respondents had a worse score. OBJECTIVE MEASURES WITH LEVEL OF FUNCTION: Lymphedema Presents with: Decreased knowledge of lymphedema management, Pain Lymphedema Contributing Factors: Chemotherapy, Lymph Node Removal (possibly radiation in near future) Relative Contra-indications to Compression: : None Relative Contra-indications to Neck Manual Lymph Drainage: : Age (>70 years old) Skin: (skin with good color and hydration, no firmness or pitting) Upper Extremity Circumferential Measurements R Thumb (proximal phalanx) (cm): 7 cm R Index Finger (proximal phalanx) (cm): 7 cm R Middle Finger (proximal phalanx) (cm): 7 cm R Ring Finger (proximal phalanx) (cm): 6.5 cm R Small Finger (proximal phalanx) (cm): 5.5 cm R DPC (cm): 21 cm R Distal Wrist Crease (DWC) (cm): 18 cm R 4 cm above wrist (cm): 18 cm R 8 cm above wrist (cm): 20 cm R 12 cm above wrist (cm): 22 cm R 16 cm above wrist (cm): 25 cm R 20 cm above wrist (cm): 27 cm R 24 cm above wrist (cm): 27.5 cm (elbow) R 28 cm above wrist (cm): 26.5 cm R 32 cm above wrist (cm): 28 cm R 36 cm above wrist (cm): 28 cm R 40 cm above wrist (cm): 30.5 cm R 44 cm above wrist (cm): 32 cm L Thumb (proximal phalanx) (cm): 7 cm L Index Finger (proximal phalanx) (cm): 7 cm L Middle Finger (proximal phalanx) (cm): 7 cm L Ring Finger (proximal phalanx) (cm): 6.5 cm L Small Finger (proximal phalanx) (cm): 6 cm L DPC (cm): 21 cm L Distal Wrist Crease (DWC) (cm): 18.5 cm L 4 cm above wrist (cm): 18 cm L 8 cm above wrist (cm): 20 cm L 12 cm above wrist (cm): 22 cm L 16 cm above wrist (cm): 25.5 cm L 20 cm above wrist (cm): 27 cm L 24 cm above wrist (cm): 27.5 cm (elbow) L 28 cm above wrist (cm): 26.5 cm L 32 cm above wrist (cm): 27.5 cm L 36 cm above wrist (cm): 29 cm L 40 cm above wrist (cm): 32 cm L 44 cm above wrist (cm): 32.5 cm Affected Arm : Left Arm Calculate Volume : Yes R Upper Extremity Volume: 2288.93 L Upper Extremity Volume: 2344 Difference in Volume: 55.07 Difference in % : 2.41 UE AROM R Shoulder Extension: 52 Degrees R Shoulder Flex: 155 Degrees R Shoulder ABduction: 180 Degrees R Shoulder Internal Rotation (Functional): back of hand to above scapular spine R Shoulder External Rotation: 45 Degrees L Shoulder Extension: 55 Degrees (just a little pulling in axilla) L Shoulder Flex: 155 Degrees (very little pulling sub/axillary) L Shoulder ABduction: 165 Degrees (mild pulling, not painful) L Shoulder Internal Rotation (Functional): back of hand to medial border of scapula L Shoulder External Rotation: 55 Degrees Vitals BP: (deferred d/t lymphedema precautions) Education: Education Learning Preferences: Demonstration, Explanation Barriers: None Learning/educational needs: Home exercise program, Plan of Care, Lymphedema Program Education Provided: Yes, see treatment interventions for education provided Education Provided To: Patient Education Mode/Type: Demonstration, Explanation/Discussion, Literature/Printed Materials, Performance Response to Education/Teach Back: States/Identifies, Return Demonstration TREATMENT: PT Treatment Interventions: Therapeutic Exercise, Self-Detention Management Evaluation Therapeutic Exercise: 1: *Instructed pt in UE Decongestive Exercises 2: *wall shld flex stretch Skilled Intervention: Patient was educated in proper exercise technique and purpose for exercises. Skilled judgment was used in selection of appropriate interventions. Provided written instruction for home exercise program to facilitate proper performance and compliance. Correct performance of therapeutic exercises was facilitated with verbal and visual cuing. Patient education as noted. Self-Detention Management: 1: .Pt was educated in lymphatic anatomy/physiology as related to diagnosis. Educated in Complete Decongestive Therapy (CDT) including skin care/infection prevention, cellulitis precautions and to notify physician if signs/sx, decongestive exercises, manual lymphatic drainage (MLD), and compressionoptions (short-stretch vs. inelastic, garment options, pneumatic pump). Discussion followed with ptquestions answered to satisfaction. Skilled Intervention: Skilled judgment in the selection of proper modification for activity of daily living/home management based on clinical presentation, deficits, and needs. Educated the patient regarding recommendations and provided written instruction to facilitate compliance. Reviewed patient specific diagnosis in relation to activities of daily living/home management. Billing * Evaluation Low Complexity: 1 Unit Therapeutic Exercise Treatment Minutes: 10 Self-Care/Home Management Treatment Minutes: 23 Skilled Treatment Time Minutes (timed and untimed codes): 53 Total Session Time (minutes): 53 Session Start Time : 1305 Session Stop Time : 1358 Roberto Ulloa PT documented in this encounter[facility]24 NoteS[facility]-27-[facility] History of Present illness Narrative* Audie Hemphill - 12/27/2023 10:17 AM EDT Radha Witt 1950 12/27/2023 HISTORY OF PRESENT ILLNESS: Radha Witt is a 73 year old female referred for medical oncology care after new diagnosis left triple negative breast cancer. We discussed role of systemic chemotherapy in management of this entity. Reviewed imaging thus far: cT1bN0 with additional enhancement posteriorly on breast MRI Multiple additional lesion noted on breast MRI, biopsies pending. History uterine cancer [facility] BSO 2 Discussed genetic counseling, she has no children of siblings, but will consider. Here for follow up, post lumpectomy 11-12-23 pT1bN0 grade 3 Interval Hx: Pt presents today with her spouse following C1D1 TC. She reports feeling well overall today. Deniesrecent fevers, chills or NS. No SOB, CP. Endorses lack of appetite on following treatment some improvement with antiemetic although denies nausea per say. No vomiting. No changes in bowel orbladder habits. Denies N/T. She is asking if she is able to resume acetaminophen use. Pt notes thatshe typically requires acetaminophen twice monthly for headaches. Took morning prior to previous lab draw. Reviewed labs with pt today. LFTs normal. Denies current headaches. No rash or skin changes.Tolerated C1 well. States she had no issues with onpro adhesive CLINICAL IMPRESSION: Early stage left TNBC. RECOMMENDATION/PLAN: 1. Plan TC x 4, per [facility]. - continue with C2 ok to use todays labs for Saturday Written and verbal health teaching given to patient, patient verbalizes understanding and agrees with treatment plan. PAST MEDICAL HISTORY Diagnosis Date Abnormal mammogram of left breast 08/22/2023 08/27/23 abnormal diagnostic left breast ultrasound. 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 Difficult intravenous access 04/03/2021 Diverticulitis of colon (without mention of hemorrhage)(562.11) Essential hypertension, benign on Toprol Female stress incontinence Migraine with aura, without mention of intractable migraine without mention of status migrainosus Nonspecific (abnormal) findings on radiological and other examination of gastrointestinal tract PAST SURGICAL HISTORY Procedure Laterality Date BREAST SURGERY HX biopies as teenager and early 30s, small lumpectomy BX BREAST W/DEVICE 1ST LESION STEREOTACTIC GUID Right 01/31/2017 Benign microcalcifications and a fibroadenoma BX OF BREAST; INCISIONAL 2023 COLON SURGERY HX 04/04/2021 LAPAROSCOPIC COLECTOMY SIGMOID COLON W/ COLORECTAL ANASTOMOSIS COLONOSCOPY FLX DX W/COLLJ SPEC WHEN PFRMD 12/20/2006 COLONOSCOPY FLX DX W/COLLJ SPEC WHEN PFRMD 12/20/2016 Colonoscopy COLONOSCOPY FLX DX W/COLLJ SPEC WHEN PFRMD 03/16/2021 PAST SURGICAL HISTORY OF breast biopsies x 2 SKIN BIOPSY HX TONSILLECTOMY PRIMARY/SECONDARY <AGE 14 TOTAL ABDOMINAL HYSTERECT W/WO RMVL TUBE OVARY Hysterectomy, NEO uterine cancer US BREAST NEEDLE CORE BIOPSY LT Left 09/2023 FAMILY HISTORY Problem Relation Age of Onset Cancer Mother uterine Heart Mother Heart Father Hypertension Father Diabetes Father type II other (Multiple myloma) Father other (Fistula) Maternal Grandmother other (Hemochromatosis) Paternal Uncle Anesthesia Problems No Family History Social History Tobacco Use Smoking status: Never Smokeless tobacco: Never Vaping Use Vaping status: Never Used Substance Use Topics Alcohol use: Yes Comment: rare Drug use: No ALLERGIES: ALLERGIES Allergen Reactions Adhesive Rash bandaids Tetracyclines Rash CURRENT OUTPATIENT MEDICATIONS: cyclobenzaprine (FLEXERIL) 5 mg tablet Take 1 tablet by mouth two times a day as needed. ondansetron (ZOFRAN) 8 mg tablet Take 1 tablet by mouth every 8 hours as needed. aspirin, enteric coated (ASPIRIN, ENTERIC COATED) 81 mg EC tablet Take 81 mg by mouth once daily. ZINC ORAL Take 50 mg by mouth once daily. calcium carbonate/vitamin D3 (CALCIUM 600 + D ORAL) Take 1 tablet by mouth four times daily. atorvastatin 10 mg tablet Take 10 mg by mouth once daily. metoprolol succinate XL (TOPROL XL) 50 mg ORAL 24 hr tablet Take 1 tablet by mouth once daily. MULTIVITAMIN TABLET Take 1 tablet by mouth once daily. dexAMETHasone (DECADRON) 4 mg tablet Take 5 tablets 12 and 6 hours prior to chemotherapy treatment. acetaminophen 300 mg-caffeine 40 mg-butalbital 50 mg (FIORICET) per capsule Take 1 capsule by mouthevery 4 hours as needed for headache. acetaminophen (TYLENOL) 325 mg tablet Take 2 tablets by mouth every 4 hours as needed for pain. REVIEW OF SYSTEMS: GENERAL: No fever, night sweats, weight loss or malaise. All other reviewed and negative other than HPI. All systems reviewed on 12/27/2023 with pertinent positives and negatives as outlined in the interval history. PHYSICAL EXAMINATION: VITAL SIGNS: BP 122/76 Pulse 68 Temp (Src) 97.2 (Temporal) Wt 166 lb 8 oz (75.5kg) SpO2 97% LMP 04/07/2004 GENERAL APPEARANCE: Well appearing, in no acute distress, alert and oriented x3, well-hydrated, well nourished. HEENT: Normocephalic, no sclera icterus, external ears normal Chest: Clear bilaterally, no wheezes, not labored. Heart: Normal S1 and S2, no abnormal sounds Abdomen: Soft, nontender, nondistended Extremities: No edema Neurological: Grossly intact Skin: Warm and dry with no rashes or ulcerations. Hematologic: no bruising or petechiae. Psychiatric: Alert and oriented x3. Emotional well-being assessment was performed. Pt denies depression, distress, and or problems with coping or adjustment. RTC with treatment on Saturday Audie Hemphill APRN.MAORI PHYSIOTHERAPIST I spent a total of 30 minutes on the date of the service which included preparing to see the patient, [id number] patient care, completing clinical documentation, and obtaining and/or reviewing separately obtained history. Portions of this note including HPI, ROS, impression/plan may have been copied forward as to provide important historical information essential in contributing to medical decision making. Documentation has been reviewed and edited as necessary to support clinical decision making for today's visit and to reflect my own independent evaluation of this patient. documented in this encounterMer[facility]09-19-2024 Telephone encounter Note * Telephone Encounter - Jojo Adams MA - 12/19/2023 2:54 PM EDT Please see update from pt and advise. Jojo Adams MA [facility]09-19-2024 Miscellaneous Notes* Telephone Encounter - Jojo Adams MA - 12/19/2023 2:54 PM EDT Please see update from pt and advise. Jojo Adams MA documented in this encounterMercy [facility]09-18-2024 Telephone encounter Note * Telephone Encounter - Brii Fernández RN - 12/18/2023 12:32 PM EDT TOXICITY CHECK SYMPTOM ASSESSMENT The patient is on Taxotere/Cytoxan Patient states she is better today. States Saturday, she had a lot of gas but that has resolved. Yesterday, felt really good Today, she has a headache, states she gets frequent headaches, sometimes tension but can be migraines. Usually takes Fioricet for them but was advised to us Ibuprofen after last labs shown elevated LFT's. She states that the Ibuprofen is not really helping. She plans to call Dr. Cope and ask if there is something else that she could try. She keeps track of how much Fioricet she takes monthly, range of 3 -7 times a month. Headache: Yes see above Visual Changes: No Dizziness: No Do you have any periods of confusion? No Mood changes: No Mouth or throat pain: No Appetite: no changes in appetite, appetite fair Taste changes: No Nausea: No Vomiting: No Heartburn: No. Weight gain/loss: No Episodes of palpitations/chest discomfort/pressure/pain No Shortness of breath: No Cough: No Diarrhea: no Constipation: no Bladder/Urinary Changes: None Pain: No=0 (pain 0 on a scale of 0-10). Fever: No Chills: No Cold sensitivity: No Numbness/weakness: No Edema: No Skin changes: No Itching: No Yellowing of skin or eyes: No Musculoskeletal/joint changes/issues No Bleeding issues: No Activity Level (0-100%): same as baseline, some days better than others Does the patient need interventions or same day appointment:No Reinforced CURRENT treatment education based on current and anticipated symptoms. Discussed port/line care and patient verbalizes understanding: Not Applicable Patient instructed to contact office or after hours Hematology/Oncology fellow for: temperature ? 100.4; questions or concerns. Patient verbalized understanding of when to seek medical attention and after hours number protocol. Brii Fernández RN [facility] Work Phone: 1(303) 668-358009-18-2024 Miscellaneous Notes* Telephone Encounter - Brii Fernández RN - 12/18/2023 12:32 PM EDT TOXICITY CHECK SYMPTOM ASSESSMENT The patient is on Taxotere/Cytoxan Patient states she is better today. States Saturday, she had a lot of gas but that has resolved. Yesterday, felt really good Today, she has a headache, states she gets frequent headaches, sometimes tension but can be migraines. Usually takes Fioricet for them but was advised to us Ibuprofen after last labs shown elevated LFT's. She states that the Ibuprofen is not really helping. She plans to call Dr. Cope and ask if there is something else that she could try. She keeps track of how much Fioricet she takes monthly, range of 3 -7 times a month. Headache: Yes see above Visual Changes: No Dizziness: No Do you have any periods of confusion? No Mood changes: No Mouth or throat pain: No Appetite: no changes in appetite, appetite fair Taste changes: No Nausea: No Vomiting: No Heartburn: No. Weight gain/loss: No Episodes of palpitations/chest discomfort/pressure/pain No Shortness of breath: No Cough: No Diarrhea: no Constipation: no Bladder/Urinary Changes: None Pain: No=0 (pain 0 on a scale of 0-10). Fever: No Chills: No Cold sensitivity: No Numbness/weakness: No Edema: No Skin changes: No Itching: No Yellowing of skin or eyes: No Musculoskeletal/joint changes/issues No Bleeding issues: No Activity Level (0-100%): same as baseline, some days better than others Does the patient need interventions or same day appointment:No Reinforced CURRENT treatment education based on current and anticipated symptoms. Discussed port/line care and patient verbalizes understanding: Not Applicable Patient instructed to contact office or after hours Hematology/Oncology fellow for: temperature ? 100.4; questions or concerns. Patient verbalized understanding of when to seek medical attention and after hours number protocol. Brii Fernández RN documented in this encounterMer[facility]09-12-2024 Telephone encounter Note * Telephone Encounter - Brii Fernández RN - 12/12/2023 1:08 PM EDT CYCLE 1/DAY 1 POST TREATMENT CALL Today's date: December 12, 2023 Treatment Regimen: Taxotere/Cytoxan C1D1 Date: 12/10/23 Called patient to follow-up on symptom management. Spoke with patient SYMPTOM ASSESSMENT Neuro: None CV/Resp: None GI/: Appetite: decreased appetite, Nausea yes, took Zofran this am and back to bed, took a nap and up now, feels better but still decreased appetite, encouraged light, some bland, small frequent meals. Fluid intake: Instructed to push fluids. Integument: None Activity: Activity Level (0-100%): decreased Pain: No=0 (pain 0 on a scale of 0-10). Fever: No Chills: No Any new referrals needed? No Reinforced CURRENT treatment education based on current and anticipated symptoms. Discussed port/line care and patient verbalizes understanding: Not Applicable Patient instructed to contact office or after hours Hematology/Oncology fellow for: temperature ? 100.4; questions or concerns. Patient verbalized understanding of when to seek medical attention and after hours number protocol. Brii Fernández RN [facility] Work Phone: [phone]) 166-231709-12-2024 Miscellaneous Notes* Telephone Encounter - Brii Fernández RN - 12/12/2023 1:08 PM EDT CYCLE 1/DAY 1 POST TREATMENT CALL Today's date: December 12, 2023 Treatment Regimen: Taxotere/Cytoxan C1D1 Date: 12/10/23 Called patient to follow-up on symptom management. Spoke with patient SYMPTOM ASSESSMENT Neuro: None CV/Resp: None GI/: Appetite: decreased appetite, Nausea yes, took Zofran this am and back to bed, took a nap and up now, feels better but still decreased appetite, encouraged light, some bland, small frequent meals. Fluid intake: Instructed to push fluids. Integument: None Activity: Activity Level (0-100%): decreased Pain: No=0 (pain 0 on a scale of 0-10). Fever: No Chills: No Any new referrals needed? No Reinforced CURRENT treatment education based on current and anticipated symptoms. Discussed port/line care and patient verbalizes understanding: Not Applicable Patient instructed to contact office or after hours Hematology/Oncology fellow for: temperature ? 100.4; questions or concerns. Patient verbalized understanding of when to seek medical attention and after hours number protocol. Brii Fernández RN documented in this encounterMercy [facility] Hospital09-10-2024 NoteShelby [facility]09-10-2024 History of Present illness Narrative* Yolanda Prince RN - 12/10/2023 11:40 AM EDT Pt. Liver functions elevated. Dr. Iglesias made aware, Pt. States she took floricet last night for a head ache, verbally educated pt on limiting tylenol usage and utilizing ibuprofen instead per Dr. Iglesias. Pt. Verbalized understanding. documented in this encounterMercy [facility] Hospital09-05-2024 NoteShelby [facility]09-05-2024 History of Present illness Narrative* Brii Fernández RN - 12/05/2023 3:50 PM EDT Patient teaching was completed over the phone. Brii Fernández RN Experimental Physicist Pre Chemo Patient identified by name and date of . YES Confirmed date and time for chemotherapy ? YES Other appointments (labs, imaging) discussed? YES Discussed where to park ([place]), charge for parking YES Discussed where to report (building/floor) YES Any pre-medications ordered? NO Described the infusion room and what to expect. (What to wear, what to bring [iPad, books] amount of time treatment can take, meals and CC options for food) YES Note: Per Dr. Iglesias, no need to hold ASA 81mg and does not need to take Decadron po at home. Can hold Rx for Decadron if needed for later. Discussed whether the patient can eat prior to labs and treatment. YES Who is driving you to and from treatment? Spouse Discussed why it is important to bring someone with you. Yes, first treatment Resources discussed (music therapy, Art therapy, pet therapy, etc.) YES Education on chemotherapy (drug, side effects) discussed and that the patient will be receiving a C1D1 call within 7 days of treatment. YES Other topics discussed, interventions needed: No Brii Fernández RN * Brii Fernández RN - 12/05/2023 3:42 PM EDT ONCOLOGY PATIENT EDUCATION NOTE TOPIC: Chemotherapy, Medications: Taxotere/Cytoxan patient, spouse, and daughter called today for education for treatment of Breast Cancer Anticipated/Scheduled start date: 12/10/23 READINESS TO LEARN: COGNITIVE ABILITY: Alert and oriented MOTIVATION TO LEARN: Interested FAMILY SUPPORT: High - Very involved in pt care INSTRUCTION PROVIDED TO: Patient, Spouse, and Daughter INSTRUCTION PROVIDED BY: Nurse Coordinator PATIENT LEARNS BEST BY: Multiple Methods FACTORS AFFECTING LEARNING: None PHYSICAL LIMITATIONS AFFECTING LEARNING: None LEARNING RESPONSE METHOD OF INSTRUCTION: Individual instruction Written instruction/Handouts Verbal instruction PATIENT/FAMILY RESPONSE: Verbalizes understanding of: CHEMOTHERAPY-Regimen, toxicity and side effects FOLLOW UP PLAN: Recommend - Recommend continued instruction and follow up as directed Contact information given. SUPPLEMENTAL MATERIAL: Written material was provided at this visit with the following information: - Chemotherapy education was provided by a pharmacist NO - Side effect management information was provided/discussed including but not limited to: abdominaldiscomfort, anemia, arthralgia, bowel habit changes, fatigue, fluid retention, hair loss, hypersensitivity reaction, infection, mouth hygiene, mucositis, myalgia, nausea/vomitting, neutropenia, peripheral edema, peripheral neuropathy, rash, thrombocytopenia YES - Provided important phone numbers and contacts during and after hours. YES - Provided information on symptoms that require immediate assistance. YES - Provided Chemotherapy when to call handouts YES - Preventing infection. YES - Treatment schedule and confirmation of appointment times. YES - Available support groups. YES - The importance of contraception during the course of chemotherapy NA - Neutropenic fever protocol discussed with patient, which included the importance of reporting anyfever of 100.4F (38.0C) or greater to the healthcare team as noted on the provided wallet card and/or magnet. YES Time Spent: 55 minutes REFERRAL (RECOMMENDATION): Social Work, to call patient at a later time. Brii Fernández RN documented in this encounterMer[facility]09-[facility]-2024 NoteS[facility]09-05-[facility]24 Telephone encounter Note* Telephone Encounter - Oliverio Bryan - 12/05/2023 10:15 AM EDT Working first time treatment report. Patient is active with Medicare, LOC 80%, $240 deductible has been met. Patient also has [facility] AARP plan G, which will scrap picker the 20% co-insurance, no estimate wasrun. Will send patient a MyChart message followed up by a phone call. DX: Malignant neoplasm of lower-inner quadrant of left breast in female, estrogen receptor negative (HCC) Noted 10/13/2023 [C50.312, Z17.1] DOCETAXEL 75 CYCLOPHOSPHAMIDE Glen Iglesias MD [facility]09-05-2024 Miscellaneous Notes* Telephone Encounter - Bryan Duron - 12/05/2023 10:15 AM EDT Working first time treatment report. Patient is active with Medicare, LOC 80%, $240 deductible has been met. Patient also has [facility] AARP plan G, which will scrap picker the 20% co-insurance, no estimate wasrun. Will send patient a MyChart message followed up by a phone call. DX: Malignant neoplasm of lower-inner quadrant of left breast in female, estrogen receptor negative (HCC) Noted 10/13/2023 [C50.312, Z17.1] DOCETAXEL 75 CYCLOPHOSPHAMIDE Glen Iglesias MD documented in this encounterMercy [facility] Hospital09-03-2024 NoteShelby [facility]09-03-2024 History of Present illness Narrative* Harleen Thomas RN - 12/03/2023 11:43 AM EDT [facility] Telephonic Outreach Provider Action/FYI Contacted for: Routine Telephonic Outreach Contact made with patient: Yes Patient identified by name and date of . Discussed care with patient Will be starting chemotherapy 12-05-23. Has spoken with Hematology/Oncology CC and has received pre chemo information. Confirmed she has business hours and non business hour contact information for concerns about chemotherapy. Feels she has support. Aware this will be the last CDM call. Aware she continues to have access to [employer] phone line, number given. documented in this encounterMercy [facility] Hospital08-30-2024 Nurse Note* Yolanda Prince RN - 11/29/2023 10:28 AM EDT Radiation Therapy - Nursing Note (Follow-up) PATIENT NAME: Radha Witt PATIENT November 29, 2023 [facility] FACILITY/LOCATION: [facility] Reason for visit: Follow up. Subjective Data Pt. Is here to follow up post upper left lymph node removal and to discuss possible radiation treatment. Additional Data Do you want to see a Accounting Teacher? No Nursing Assessment Fatigue: Hasn't started radiation Appetite: excellent Weight Gain/Loss: Not applicable Last 6 Encounter Wt Readings: Date: Wt: 11/29/2023 76.4 kg (168 lb 8 oz) 11/27/2023 76.9 kg (169 lb 8 oz) 10/24/2023 77.3 kg (170 lb 8 oz) 10/24/2023 77.3 kg (170 lb 8 oz) 10/23/2023 78.5 kg (173 lb 1 oz) 10/11/2023 78.7 kg (173 lb 8 oz) Bowel Function: normal bowel movements Focused Assessment GENERAL: No additional assessment areas noted. SIGNED by: Yolanda Prince RN [facility]08-30-[facility] Nurse Note* Yolanda Prince RN - 11/29/2023 10:28 AM EDT Radiation Therapy - Nursing Note (Follow-up) PATIENT NAME: Radha Witt PATIENT November 29, 2023 [facility] FACILITY/LOCATION: [facility] Reason for visit: Follow up. Subjective Data Pt. Is here to follow up post upper left lymph node removal and to discuss possible radiation treatment. Additional Data Do you want to see a Accounting Teacher? No Nursing Assessment Fatigue: Hasn't started radiation Appetite: excellent Weight Gain/Loss: Not applicable Last 6 Encounter Wt Readings: Date: Wt: 11/29/2023 76.4 kg (168 lb 8 oz) 11/27/2023 76.9 kg (169 lb 8 oz) 10/24/2023 77.3 kg (170 lb 8 oz) 10/24/2023 77.3 kg (170 lb 8 oz) 10/23/2023 78.5 kg (173 lb 1 oz) 10/11/2023 78.7 kg (173 lb 8 oz) Bowel Function: normal bowel movements Focused Assessment GENERAL: No additional assessment areas noted. SIGNED by: Yolanda Prince RN documented in this encounterMercy Memorial Hospital08-30-2024 NoteShelby [facility]08-30-2024 History of Present illness Narrative* Benson Pierre MD - 11/29/2023 10:21 AM EDT Radiation Oncology - Follow Up Note PATIENT NAME: Radha Witt PATIENT DIAGNOSIS: Stage IA, pT1b pN0 (sn), grade 3 invasive ductal carcinoma of the left breast s/p left breast lumpectomy and sentinel node biopsy on 11/12/23. It's ER negative (<1%), DE negative (<1%) and Her2 0. INTERVAL HISTORY: Since I saw her, she underwent biopsy of suspicious lesions seen on MRI. Biopsy of the left and right breast lesions on 11/07/23 and 11/08/23 all showed benign findings. She then underwent left breast lumpectomy and sentinel node biopsy on 11/12/23. Pathology showed minute focus of invasive ductal carcinoma, status post biopsy and all surgical margins were negative greater than 2 mm.3 sentinel nodes were negative for metastasis. ALLERGIES Allergen Reactions Adhesive Rash bandaids Tetracyclines Rash MEDICATIONS: dexAMETHasone (DECADRON) 4 mg tablet Take 5 tablets 12 and 6 hours prior to chemotherapy treatment. ondansetron (ZOFRAN) 8 mg tablet Take 1 tablet by mouth every 8 hours as needed. acetaminophen 300 mg-caffeine 40 mg-butalbital 50 mg (FIORICET) per capsule Take 1 capsule by mouthevery 4 hours as needed for headache. aspirin, enteric coated (ASPIRIN, ENTERIC COATED) 81 mg EC tablet Take 81 mg by mouth once daily. acetaminophen (TYLENOL) 325 mg tablet Take 2 tablets by mouth every 4 hours as needed for pain. ZINC ORAL Take 50 mg by mouth once daily. calcium carbonate/vitamin D3 (CALCIUM 600 + D ORAL) Take 1 tablet by mouth four times daily. atorvastatin 10 mg tablet Take 10 mg by mouth once daily. metoprolol succinate XL (TOPROL XL) 50 mg ORAL 24 hr tablet Take 1 tablet by mouth once daily. MULTIVITAMIN TABLET Take one(1) tablet daily. PHYSICAL EXAM: VS: LMP 04/07/2004 KPS: 100 General Appearance: Alert and oriented. No acute distress. ASSESSMENT AND PLAN: Stage IA, pT1b pN0 (sn), grade 3 invasive ductal carcinoma of the left breast s/p left breast lumpectomy and sentinel node biopsy on 11/12/23. It's ER negative (<1%), DE negative (<1%) and Her2 0. She has triple negative breast cancer and I recommend radiation treatment to the left breast as part of breast conserving therapy. I explained the rationale, benefits, alternative management options and potential complications of radiation treatment to the patient and she understands and agrees to proceed. It was explained and understood that other personnel such as radiation therapists, facility supervisor, and physicists will partici [place] in planning and delivery of radiation treatment. Permanent tattoo coronado will be placed to aid with positioning for daily treatment and the patient consented. Patient will have a simulation procedure after she finishes chemotherapy. She saw Dr. Iglesias and will have chemotherapy with 4 cycles of TC. She is expected to finish chemotherapy in January. I will see her after she finishes chemotherapy. Signed by: Benson Pierre MD cc: Lnua Cope [id number] [place] [address] documented in this encounterMercy Memorial Hospital08-29-2024 Telephone encounter Note * Telephone Encounter - Roberto Murillo - 11/28/2023 8:59 AM EDT Scheduled 3 cycles Start email sent [facility] Work Phone: 1(782) 543-349608-29-2024 Miscellaneous Notes* Telephone Encounter - Roberto Murillo - 11/28/2023 8:59 AM EDT Scheduled 3 cycles Start email sent * Telephone Encounter - Evita Pierce - 11/27/2023 3:57 PM EDT Check out comments: Chemotherapy Education - SCHEDULED Start Q3wk Taxotere cytoxan when able. CBC/CMP straight back to start. CBC/CMP/OV prior to each cycle. documented in this encounterMercy Memorial Hospital08-28-2024 Telephone encounter Note * Telephone Encounter - Brii Fernández RN - 11/27/2023 4:22 PM EDT Met with patient and introduced myself. Patient was given a My Journey binder with chemocare information, office contact information, thermometer, and additional chemotherapy resource booklets. Patient aware this nurse will review on scheduled appointment date. Geno Fernández RN [facility] Work Phone: 1(139) 449-778908-28-2024 Miscellaneous Notes* Telephone Encounter - Brii Fernández RN - 11/27/2023 4:22 PM EDT Met with patient and introduced myself. Patient was given a My Journey binder with chemocare information, office contact information, thermometer, and additional chemotherapy resource booklets. Patient aware this nurse will review on scheduled appointment date. Geno Fernández RN documented in this encounterMercy Memorial Hospital08-28-2024 Telephone encounter Note * Telephone Encounter - Evita Pierce - 11/27/2023 3:57 PM EDT Check out comments: Chemotherapy Education - SCHEDULED Start Q3wk Taxotere cytoxan when able. CBC/CMP straight back to start. CBC/CMP/OV prior to each cycle. [facility]08-28-2024 NoteShelby [facility]08-28-2024 History of Present illness Narrative* Glen Iglesias MD - 11/27/2023 2:56 PM EDT (Elements copied from my note dated October 24, 2023, have been reviewed and updated where appropriate, and all reflect current assessment and medical decision making from today's encounter, November 27, 2023) HISTORY OF PRESENT ILLNESS: Radha Witt is a 73 year old female referred for medical oncology care after new diagnosis left triple negative breast cancer. We discussed role of systemic chemotherapy in management of this entity. Reviewed imaging thus far: cT1bN0 with additional enhancement posteriorly on breast MRI Multiple additional lesion noted on breast MRI, biopsies pending. History uterine cancer [facility] 05-04-04 Discussed genetic counseling, she has no children of siblings, but will consider. Here for follow up, post lumpectomy 11-12-23 pT1bN0 grade 3 CLINICAL IMPRESSION: Early stage left TNBC. RECOMMENDATION/PLAN: 1. Plan TC x 4, per [facility]. Written and verbal health teaching given to patient, patient verbalizes understanding and agrees with treatment plan. PAST MEDICAL HISTORY 08/22/2023: Abnormal mammogram of left breast Comment: 08/27/23 abnormal diagnostic left breast ultrasound. 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 11) No date: Essential hypertension, benign Comment: on Toprol No date: Female stress incontinence No date: Migraine with aura, without mention of intractable migraine without mention of status migrainosus No date: Nonspecific (abnormal) findings on radiological and other examination of gastrointestinal tract PAST SURGICAL HISTORY No date: BREAST SURGERY HX Comment: biopies as teenager and early 30s, small lumpectomy 01/31/2017: BX BREAST W/DEVICE 1ST LESION STEREOTACTIC GUID; Right Comment: Benign microcalcifications and a fibroadenoma 2023: BX OF BREAST; INCISIONAL 04/04/2021: COLON SURGERY HX Comment: LAPAROSCOPIC COLECTOMY SIGMOID COLON W/ COLORECTAL ANASTOMOSIS 12/20/2006: COLONOSCOPY FLX DX W/COLLJ SPEC WHEN PFRMD 12/20/2016: COLONOSCOPY FLX DX W/COLLJ SPEC WHEN PFRMD Comment: Colonoscopy 03/16/2021: COLONOSCOPY FLX DX W/COLLJ SPEC WHEN PFRMD No date: PAST SURGICAL HISTORY OF Comment: breast biopsies x 2 No date: SKIN BIOPSY HX No date: TONSILLECTOMY PRIMARY/SECONDARY <AGE 14 No date: TOTAL ABDOMINAL HYSTERECT W/WO RMVL TUBE OVARY Comment: Hysterectomy, NEO uterine cancer 09/2023: US BREAST NEEDLE CORE BIOPSY LT; Left FAMILY HISTORY Problem Relation Age of Onset Cancer Mother uterine Heart Mother Heart Father Hypertension Father Diabetes Father type II other (Multiple myloma) Father other (Fistula) Maternal Grandmother other (Hemochromatosis) Paternal Uncle Anesthesia Problems No Family History Social History Tobacco Use Smoking status: Never Smokeless tobacco: Never Vaping Use Vaping status: Never Used Substance Use Topics Alcohol use: Yes Comment: rare Drug use: No ALLERGIES: ALLERGIES Allergen Reactions Adhesive Rash bandaids Tetracyclines Rash CURRENT OUTPATIENT MEDICATIONS: acetaminophen 300 mg-caffeine 40 mg-butalbital 50 mg (FIORICET) per capsule Take 1 capsule by mouthevery 4 hours as needed for headache. aspirin, enteric coated (ASPIRIN, ENTERIC COATED) 81 mg EC tablet Take 81 mg by mouth once daily. acetaminophen (TYLENOL) 325 mg tablet Take 2 tablets by mouth every 4 hours as needed for pain. ZINC ORAL Take 50 mg by mouth once daily. calcium carbonate/vitamin D3 (CALCIUM 600 + D ORAL) Take 1 tablet by mouth four times daily. atorvastatin 10 mg tablet Take 10 mg by mouth once daily. metoprolol succinate XL (TOPROL XL) 50 mg ORAL 24 hr tablet Take 1 tablet by mouth once daily. MULTIVITAMIN TABLET Take one(1) tablet daily. iv contrast (will be provided with radiology test) MRI Breast JINNY Inject, intravenously, once for 1dose. No IV access, insert saline lock prior to the beginning of sedation, infusion, injection of imaging exam. Discontinue saline lock post exam. If Pt has a central line or IVAD, may access for administration according to line specific nursing protocol. Once exam is complete flush line and de-access according to line specific nursing protocol in the MR contrast administration guidelines link REVIEW OF SYSTEMS: GENERAL: No fever, night sweats, weight loss or malaise. All other reviewed and negative other than HPI. PHYSICAL EXAMINATION: VITAL SIGNS: BP 114/77 Pulse 69 Temp (Src) 97.8 (Temporal) Wt 169 lb 8 oz (76.9kg) SpO2 98% LMP 04/07/2004 GENERAL APPEARANCE: Well appearing, in no acute distress, alert and oriented x3, well-hydrated, well nourished. I spent a total of 45 minutes on the date of the service which included preparing to see the patient, [id number] patient care, completing clinical documentation, obtaining and/or reviewing separately obtained history, counseling and educating the patient/family/caregiver, communicating with other HCPs (not separately reported), independently interpreting results (not separately reported), and communicating results to the patient/family/caregiver. Electronically Signed: Glen Iglesias MD November 27, 2023 documented in this encounterMercy Memorial Hospital08-28-2024 Nurse Note* Crystal Connolly LPN - 11/27/2023 8:45 AM EDT Post op Last mammogram on: 08/22/2023 bilateral Results: see report Is the patient active on MyChart Yes Electronically Signed By: Crystal Connolly LPN In Department: [facility] REVIEW OF PATIENT HISTORY: OB History T0 L0 SAB0 IAB0 Ectopic0 Multiple0 Live Births0 FAMILY HISTORY Problem Relation Age of Onset Cancer Mother uterine Heart Mother Heart Father Hypertension Father Diabetes Father type II other (Multiple myloma) Father other (Fistula) Maternal Grandmother other (Hemochromatosis) Paternal Uncle Anesthesia Problems No Family History PAST MEDICAL HISTORY 08/22/2023: Abnormal mammogram of left breast Comment: 08/27/23 abnormal diagnostic left breast ultrasound. 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 11) No date: Essential hypertension, benign Comment: on Toprol No date: Female stress incontinence No date: Migraine with aura, without mention of intractable migraine without mention of status migrainosus No date: Nonspecific (abnormal) findings on radiological and other examination of gastrointestinal tract PAST SURGICAL HISTORY No date: BREAST SURGERY HX Comment: biopies as teenager and early 30s, small lumpectomy 01/31/2017: BX BREAST W/DEVICE 1ST LESION STEREOTACTIC GUID; Right Comment: Benign microcalcifications and a fibroadenoma 2023: BX OF BREAST; INCISIONAL 04/04/2021: COLON SURGERY HX Comment: LAPAROSCOPIC COLECTOMY SIGMOID COLON W/ COLORECTAL ANASTOMOSIS 12/20/2006: COLONOSCOPY FLX DX W/COLLJ SPEC WHEN PFRMD 12/20/2016: COLONOSCOPY FLX DX W/COLLJ SPEC WHEN PFRMD Comment: Colonoscopy 03/16/2021: COLONOSCOPY FLX DX W/COLLJ SPEC WHEN PFRMD No date: PAST SURGICAL HISTORY OF Comment: breast biopsies x 2 No date: SKIN BIOPSY HX No date: TONSILLECTOMY PRIMARY/SECONDARY No date: TOTAL ABDOMINAL HYSTERECT W/WO RMVL TUBE OVARY Comment: Hysterectomy, NEO uterine cancer 09/2023: US BREAST NEEDLE CORE BIOPSY LT; Left Social History Tobacco Use Smoking status: Never Smokeless tobacco: Never Vaping Use Vaping status: Never Used Substance Use Topics Alcohol use: Yes Comment: rare Drug use: No [facility] Work Phone: 1(426) 455-644808-28-2024 Nurse Note* Crystal Connolly LPN - 11/27/2023 8:45 AM EDT Post op Last mammogram on: 08/22/2023 bilateral Results: see report Is the patient active on 20x200 Yes Electronically Signed By: Crystal Connolly LPN In Department: [facility] REVIEW OF PATIENT HISTORY: OB History T0 L0 SAB0 IAB0 Ectopic0 Multiple0 Live Births0 FAMILY HISTORY Problem Relation Age of Onset Cancer Mother uterine Heart Mother Heart Father Hypertension Father Diabetes Father type II other (Multiple myloma) Father other (Fistula) Maternal Grandmother other (Hemochromatosis) Paternal Uncle Anesthesia Problems No Family History PAST MEDICAL HISTORY 08/22/2023: Abnormal mammogram of left breast Comment: 08/27/23 abnormal diagnostic left breast ultrasound. 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 11) No date: Essential hypertension, benign Comment: on Toprol No date: Female stress incontinence No date: Migraine with aura, without mention of intractable migraine without mention of status migrainosus No date: Nonspecific (abnormal) findings on radiological and other examination of gastrointestinal tract PAST SURGICAL HISTORY No date: BREAST SURGERY HX Comment: biopies as teenager and early 30s, small lumpectomy 01/31/2017: BX BREAST W/DEVICE 1ST LESION STEREOTACTIC GUID; Right Comment: Benign microcalcifications and a fibroadenoma 2023: BX OF BREAST; INCISIONAL 04/04/2021: COLON SURGERY HX Comment: LAPAROSCOPIC COLECTOMY SIGMOID COLON W/ COLORECTAL ANASTOMOSIS 12/20/2006: COLONOSCOPY FLX DX W/COLLJ SPEC WHEN PFRMD 12/20/2016: COLONOSCOPY FLX DX W/COLLJ SPEC WHEN PFRMD Comment: Colonoscopy 03/16/2021: COLONOSCOPY FLX DX W/COLLJ SPEC WHEN PFRMD No date: PAST SURGICAL HISTORY OF Comment: breast biopsies x 2 No date: SKIN BIOPSY HX No date: TONSILLECTOMY PRIMARY/SECONDARY <AGE 14 No date: TOTAL ABDOMINAL HYSTERECT W/WO RMVL TUBE OVARY Comment: Hysterectomy, NEO uterine cancer 09/2023: US BREAST NEEDLE CORE BIOPSY LT; Left Social History Tobacco Use Smoking status: Never Smokeless tobacco: Never Vaping Use Vaping status: Never Used Substance Use Topics Alcohol use: Yes Comment: rare Drug use: No documented in this encounterMercy [facility] Hospital08-28-2024 History of Present illness Narrative* Pk Ramsey PA-C - 11/27/2023 8:30 AM EDT REASON FOR TODAY'S VISIT: Post-op HISTORY of PRESENT ILLNESS: Radha Witt is a 73 year old year old female who is s/p a LEFT breast norma enforcement manager localized lumpectomy, LEFT sentinel lymph node mapping and biopsy performed by Dr. Sanchez (Breast Surgeon) on 11/12/2023. She denies any redness, bruising, swelling or discharge from the incision. She denies any fever or chills. Pain of the surgical site is reported as minimal and intermittent, but reports intermittent left arm discomfort s/p SN bx. BREAST EXAMINATION: The patient was examined in the upright position. LEFT breast soft, no dominant masses, nipple everted, no discharge, no skin changes. The inframammary incision is healing well. LEFT axilla no palpable lymphadenopathy, no evidence of lymphedema, and good range of motion. Incision healing well. No seroma No signs of lymphedema SURGICAL PATHOLOGY: FINAL DIAGNOSIS A: Lymph node, left sentinel, 3 nodes, excision: - 3 lymph nodes, negative for carcinoma (0/3). B: Breast, left, 8:00, lumpectomy: - Minute focus of invasive ductal carcinoma, status post biopsy, see comment and synoptic report. - Final margins, inclusive of parts C-H, are negative for carcinoma. - Norma enforcement manager device, biopsy clip, and biopsy site changes are identified. C: Breast, left, new anterior margin, excision: - Final margin is negative for carcinoma. D: Breast, left, new inferior margin, excision: - Final margin is negative for carcinoma. E: Breast, left, new lateral margin, excision: - Final margin is negative for carcinoma. F: Breast, left, new medial margin, excision: - Mammary tissue with fibrocystic changes and usual ductal hyperplasia. - Final margin is negative for carcinoma. - Biopsy clip is identified. G: Breast, left, new posterior margin, excision: - Final margin is negative for carcinoma. H: Breast, left, new superior margin, excision: - Final margin is negative for carcinoma. Diagnosis Comment Part B was entirely submitted for microscopic examination and shows a minute focus of invasive carcinoma (<1 mm in size) at the site of biopsy changes and fibrous scarring (multiple deeper levels examined), status post biopsy. The patient's prior biopsy case [id number] was retrieved and reviewed, with the diagnostic concordance. Findings from the biopsy case [id number] (histologic type, histologic grade, and tumor size) are incorporated in the synoptic report. Block for additional Biomarkers/Molecular studies [id number] Synoptic Report INVASIVE CARCINOMA OF THE BREAST: Resection 8th Edition - Protocol posted: 03/13/2023INVASIVE CARCINOMA OF THE BREAST: EXCISION - All Specimens SPECIMEN Procedure Excision (less than total mastectomy) Specimen Laterality Left TUMOR Tumor Site Clock position 8 o'clock Histologic Type Invasive carcinoma of no special type (ductal) Histologic Type Comment based on the patient's prior biopsy case [id number] Histologic Grade ([place] Histologic Score) Glandular (Acinar) / Tubular Differentiation Score 3 Nuclear Pleomorphism Score 3 Mitotic Rate Score 3 Overall Grade Grade 3 (scores of 8 or 9) Tumor Size Greatest dimension of largest invasive focus (Millimeters): 7 mm Tumor Focality Single focus of invasive carcinoma Ductal Carcinoma In Situ (DCIS) Not identified Lymphatic and / or Vascular Invasion Not identified Treatment Effect in the Breast No known presurgical therapy MARGINS Margin Status for Invasive Carcinoma All margins negative for invasive carcinoma Distance from Invasive Carcinoma to Closest Margin Greater than: 2 mm REGIONAL LYMPH NODES Regional Lymph Node Status All regional lymph nodes negative for tumor Total Number of Lymph Nodes Examined (sentinel and non-sentinel) 3 Number of [place] Nodes Examined 3 pTNM CLASSIFICATION (AJCC 8th Edition) Reporting of pT, pN, and (when applicable) pM categories is based on information available to the pathologist at the time the report is issued. As per the AJCC (Chapter 1, 8th Ed.) it is the managingphysician s responsibility to establish the final pathologic stage based upon all pertinent information, including but potentially not limited to this pathology report. pT Category pT1b pN Category pN0 N Suffix (sn) Comment(s) This synoptic report incorporates results from the patient's prior biopsy case [id number]. Breast biomarker studies were reported in the prior biopsy as follows: Estrogen receptor (negative); progesterone receptor (negative): HER2 IHC (negative, score 0). IMPRESSION: Radha Witt is a 73 year old year old female who is s/p a LEFT breast norma enforcement manager localized lumpectomy, LEFT sentinel lymph node mapping and biopsy on 11/12/2023. Final pathology reports 7mm of IDC, margins clear, Grade 3, 0/3 LN, -LVI pT1b, N0 She initially presented on 10/11/2023 with a LEFT breast 1.1 cm mass @ 8:00, 6 cm FN. Bx (bar clip) shows IDC. LN appear normal ER-DE-HER2- [id number] History uterine cancer NEO BSO 2-3 PLAN: Pathology report reviewed by (Breast Surgeon) and with the patient. Instructions for wound management, the signs and symptoms of infection, and seroma development werereviewed with the patient. All questions were answered and she had no further concerns. Discussed the 2 benign MRI biopsies and plan for 6 month follow up MRI. Ms. Pinon will follow-up with Dr. Iglesias (Medical Oncologist) as scheduled, later today. She will follow-up with Dr. Pierre (Radiation Oncologist) as scheduled, 11/29/2023 Patient understand the consult to Medical Genetics remains active, if she decides to pursue the testing. Patient will schedule a Breast Rehab consult with an occupational therapist for lymphedema prevention strategies and education on range of motion management Ms. Pinon will follow-up with us in six months She has our names and numbers to stay in touch if she has any questions, concerns or problems in the interim. Pk Ramsey PA-C cc: Dr. Sanchez (Breast Surgeon) Luna Cope MD [phone] documented in this encounterMer[facility]08-28-2024 Note[facility] Telephone encounter Note* Telephone Encounter - Marian Mohamud RN - 11/13/2023 9:47 AM EDT Attempted to reach patient x 3 for post-op follow-up call. Phone line has busy signal each attempt.No other line on file. Marian Mohamud RN [facility]08-14-2024 Miscellaneous Notes* Telephone Encounter - Marian Mohamud RN - 11/13/2023 9:47 AM EDT Attempted to reach patient x 3 for post-op follow-up call. Phone line has busy signal each attempt.No other line on file. Marian Mohamud RN documented in this encounterMercy [facility] Hospital08-13-2024 NoteHNO ID: [id number] Author: ?, ?, ? Service: ? Author Type: ? Type: Plan of Care Filed: 11/12/2023 12:27 Note Text: PHARMACY BEDSIDE DELIVERY SERVICE Patient Name: Radha Witt The marked outpatient medications were filled and picked up at [place] [facility]. Medication List Hydrocodone-acetaminophen 5-325mg per tablet CONTINUE taking these medications acetaminophen 325 mg tablet Commonly known as: TYLENOL Take 2 tablets by mouth every 4 hours as needed for pain. aspirin, enteric coated 81 mg EC tablet Commonly known as: ASPIRIN, ENTERIC COATED atorvastatin 10 mg tablet Commonly known as: LIPITOR CALCIUM 600 + D ORAL FIORICET per capsule Generic drug: acetaminophen 300 mg-caffeine 40 mg-butalbital 50 mg metoprolol succinate ER 50 mg 24 hr tablet Commonly known as: TOPROL XL Take 1 tablet by mouth once daily. multivitamin tablet Take one(1) tablet daily. ZINC ORAL You might also be taking other medications not listed above. If you have questions about any of your other medications, talk to the person who prescribed them or your Primary Care Provider. Iesha Santos PAGER: [phone] November 12, 2023 12:25 [facility]08-13-2024 NoteHNO ID: [id number] Author: MARIAN MOHAMUD RN Service: ? Author Type: Registered Nurse Type: Progress Notes Filed: 11/12/2023 09:36 Note Text: BREAST HEALTH NURSE POST-OPERATIVE DISCHARGE INSTRUCTIONS Prior to the patient's discharge from the hospital, the breast health nurse initiated post-op education with the patient. Visit made to the pre-op area. Patient in the OR. Gift bag placed with patient belongings. Breast nurse navigator will call tomorrow for post-op follow-up. The patient was given the following: Heart shaped pillow -Yes Meditative book -Yes Support group information -Yes Patient will be contacted by phone to evaluate for further educational and emotional support needs. Marian Mohamud [facility]08-13-2024 History of Present illness Narrative* Marian Mohamud RN - 11/12/2023 9:31 AM EDT BREAST HEALTH NURSE POST-OPERATIVE DISCHARGE INSTRUCTIONS Prior to the patient's discharge from the hospital, the breast health nurse initiated post-op education with the patient. Visit made to the pre-op area. Patient in the OR. Gift bag placed with patient belongings. Breast nurse navigator will call tomorrow for post-op follow-up. The patient was given the following: Heart shaped pillow -Yes Meditative book -Yes Support group information -Yes Patient will be contacted by phone to evaluate for further educational and emotional support needs. Mraian Mohamud RN documented in this encounterMercy [facility] Hospital08-13-2024 NoteHNO ID: [id number] Author: LAURA MCGILL APRN.OILER AND GREASER Service: Anesthesiology Author Type: Nurse Cloth Boil Off Machine Operator Type: Anesthesia Procedure Notes Filed: 11/12/2023 08:01 Note Text: ANESTHESIOLOGY PROCEDURE NOTE Airway General Information Procedure Start Time/Medication Administration: 11/12/2023 7:45 AM Procedure End Time: 11/12/2023 7:45 AM Patient location during procedure: OR Staffing OILER AND GREASER: Laura Mcgill APRN.OILER AND GREASER Performed by: OILER AND GREASER Indications and Patient Condition Indications for airway management: anesthesia Preoxygenated: yes anesthesia circuit Patient position: sniffing Method: asleep Difficult Mask: No Final Airway Details Final airway type: supraglottic airway Number of attempts at approach: 1 Final Supraglottic Airway: IGEL Size 4 Seal Adequate: yes Airway trauma: None. Airway not difficult SIGNATURE: Laura Mcgill APRN.OILER AND GREASER PATIENT NAME: Radha Witt DATE: November 12, 2023 TIME: 8:01 AM CSN: [id number] History of Present illness Narrative* Amie Gillespie RT(R) - 11/12/2023 7:15 AM EDT RADIOLOGY SERVICE PROGRESS NOTE SERVICE DATE: 11/12/2023 SERVICE TIME: 8:40 AM PATIENT IDENTITY VERIFICATION COMPLETED USING TWO (2) STANDARD IDENTIFIERS: Name and Date of confirmed by patient verbally FALL SCREENING: Has the patient had 2 falls in the last year or 1 fall with injury or currently using an Ambulatory Assistive Device (Walker, Cane, Wheelchair, Crutches, etc.)? No PATIENT GENDER DATA: .female : No ALLERGIES: Reviewed and unchanged MEDICATIONS REVIEWED: Not applicable PATIENT RELEVANT IMPLANT DATA REVIEWED: Not Applicable PATIENT PRESENTS WITH AN IMPLANTABLE OR ATTACHED CONSTRUCTION ESTIMATOR: No CREATININE: Creatinine Date Value Ref Range Status 10/23/2023 1.02 (H) 0.58 - 0.96 mg/dL Final 06/12/2023 1.04 (H) 0.58 - 0.96 mg/dL Final 05/21/2023 1.06 (H) 0.58 - 0.96 mg/dL Final Estimated Glomerular Filtration Rate Date Value Ref Range Status 10/23/2023 59 (L) >=60 mL/min/1.73m Final Comment: Estimated Glomerular Filtration Rate (eGFR) is calculated using the 2020 CKD-EPI creatinine equation. This equation utilizes serum creatinine, sex, and age as parameters. The creatinine assay has traceable calibration to isotope dilution- mass spectrometry. Refer to KDIGO guidelines for clinical interpretation. In patients with unstable renal function, e.g. those with acute kidney injury, the eGFRmay not accurately reflect actual GFR. eGFR- Date Value Ref Range Status 04/05/2021 >60 Final P.O.C.T. RESULTS: N/A November 12, [address] PERFORMED: No IV SITE: NM only - not applicable, oral or physician administered agents given to patient POST EXAM PIV STATUS: Not applicable PROCEDURE TYPE: NM lymphoscintigraphy: Breast 539 microcuries Tc99m Lymphoseek injected by Dr. sanchez. Site of injection: lt breast Administered time: 746 Procedure time out completed at: 0747 Informed consent visualized: N/A Site (laterality) nichole visualized/completed: N/A ADMINISTRATION TIME: 746 PATIENT DISCHARGED TO: Ambulatory patient, left [place] department area. A Diagnostic radioactive procedure has taken place, with no further precautions necessary other than routine body substance precautions. More information regarding radiation safety can be found usingthis link: [email or web address] 20Diagnostic%20Nuclear%20Medicine%[email or web address] SIGNATURE: KIERAN Pressley) PATIENT NAME: Radha Witt DATE: November 12, 2023 TIME: 8:40 AM PAGER/CONTACT #: documented in this encounterMercy [facility] Hospital08-13-2024 NoteHNO ID: [id number] Author: AMIE GILLESPIE RT (R) Service: ? Author Type: Prosthetist Type: Progress Notes Filed: 11/12/2023 08:42 Note Text: RADIOLOGY SERVICE PROGRESS NOTE SERVICE DATE: 11/12/2023 SERVICE TIME: 8:40 AM PATIENT IDENTITY VERIFICATION COMPLETED USING TWO (2) STANDARD IDENTIFIERS: Name and Date of confirmed by patient verbally FALL SCREENING: Has the patient had 2 falls in the last year or 1 fall with injury or currently using an Ambulatory Assistive Device (Walker, Cane, Wheelchair, Crutches, etc.)? No PATIENT GENDER DATA: .female : No ALLERGIES: Reviewed and unchanged MEDICATIONS REVIEWED: Not applicable PATIENT RELEVANT IMPLANT DATA REVIEWED: Not Applicable PATIENT PRESENTS WITH AN IMPLANTABLE OR ATTACHED CONSTRUCTION ESTIMATOR: No CREATININE: Creatinine Date Value Ref Range Status 10/23/2023 1.02 (H) 0.58 - 0.96 mg/dL Final 06/12/2023 1.04 (H) 0.58 - 0.96 mg/dL Final 05/21/2023 1.06 (H) 0.58 - 0.96 mg/dL Final Estimated Glomerular Filtration Rate Date Value Ref Range Status 10/23/2023 59 (L) >=60 mL/min/1.73m? Final Comment: Estimated Glomerular Filtration Rate (eGFR) is calculated using the 2020 CKD-EPI creatinine equation. This equation utilizes serum creatinine, sex, and age as parameters. The creatinine assay has traceable calibration to isotope dilution-mass spectrometry. Refer to KDIGO guidelines for clinical interpretation. In patients with unstable renal function, e.g. those with acute kidney injury, the eGFR may not accurately reflect actual GFR. eGFR- Date Value Ref Range Status 04/05/2021 >60 Final P.O.C.T. RESULTS: N/A November 12, [address] PERFORMED: No IV SITE: NM only - not applicable, oral or physician administered agents given to patient POST EXAM PIV STATUS: Not applicable PROCEDURE TYPE: GA lymphoscintigraphy: Breast 539 microcuries Tc99m Lymphoseek injected by Dr. sanchez. Site of injection: lt breast Administered time: 746 Procedure time out completed at: 746 Informed consent visualized: N/A Site (laterality) nichole visualized/completed: N/A ADMINISTRATION TIME: 746 PATIENT DISCHARGED TO: Ambulatory patient, left [place] department area. A Diagnostic radioactive procedure has taken place, with no further precautions necessary other than routine body substance precautions. More information regarding radiation safety can be found using this link: [email or web address] 20Diagnostic%20Nuclear%20Medicine%[email or web address] SIGNATURE: RT Huan(R) PATIENT NAME: Radha Witt DATE: November 12, 2023 TIME: 8:40 AM [phone] NoteEducation (NONA) RADHA WITT ([id number]) 1950 F Date Time Provider Department 11/12/23 MARIAN MOHAMUD Reason for Visit: Education Of Patient/family [[id number]] During your visit today, we recorded the following information about you: Allergies As of Date: 11/12/2023 Noted Allergy Reaction ADHESIVE 10/24/2023 2 - Rash Comments: bandaids TETRACYCLINES 04/19/2004 2 - Rash Date Reviewed: 11/12/2023 Reviewed by: Mounika Diane, ABIEL - Fully Assessed Prescriptions as of 11/12/2023 - acetaminophen 300 mg-caffeine 40 mg-butalbital 50 mg (FIORICET) per capsule Take 1 capsule by mouth every 4 hours as needed for headache. - aspirin, enteric coated (ASPIRIN, ENTERIC COATED) 81 mg EC tablet Take 81 mg by mouth once daily. - acetaminophen (TYLENOL) 325 mg tablet Take 2 tablets by mouth every 4 hours as needed for pain. - ZINC ORAL Take 50 mg by mouth once daily. - calcium carbonate/vitamin D3 (CALCIUM 600 + D ORAL) Take 1,200 mg by mouth. - atorvastatin 10 mg tablet Take 10 mg by mouth once daily. - metoprolol succinate XL (TOPROL XL) 50 mg ORAL 24 hr tablet Take 1 tablet by mouth once daily. - MULTIVITAMIN TABLET Take one(1) tablet daily. Facility-Administered Medications as of 11/12/2023 - lidocaine (PF) 10 mg/mL (1 %) 1-2 mg injection (XYLOCAINE) - lactated ringers iv infusion - NaCl 0.9% iv flush bag - scopolamine 1 mg over 3 days 1 Patch (TRANSDERM-SCOP) - scopolamine - REMOVE PATCH - scopolamine - VERIFY patch - midazolam (PF) injection (VERSED) - dexAMETHasone sodium phosphate injection (DECADRON) - propofol injection (DIPRIVAN) - lidocaine (PF) 20 mg/mL (2 %) injection (XYLOCAINE) - propofol infusion (DIPRIVAN) - fentaNYL 50 mcg/mL injection (SUBLIMAZE) - magnesium sulfate 2 g in NaCl 0.9% 100 mL - PHENYLephrine 10 mg in NaCl 0.9% 100 mL (PADDY-SYNEPHRINE) - PHENYLephrine 10 mg/mL injection (PADDY-SYNEPHRINE) - isosulfan blue 1 % injection (LYMPHAZURIN) - NaCl 0.9% irrigation solution - bupivacaine 0.5 % injection (MARCAINE MDV) Encounter Status:Closed by MARIAN MOHAMUD on 11/12/23[facility] 11-11-[facility] History of Present illness Narrative* Evita Sanchez DO - 11/11/2023 12:30 PM EDT REASON FOR TODAY'S VISIT: Patient presents with: Established Patient HISTORY of PRESENT ILLNESS: Radha Witt is a 73 year old female with a LEFT breast 1.1 cm mass @ 8:00, 6 cm FN. Bx (bar clip) showed IDC. On MRI there is associated nonmass enhancement extending posteriorly towards the pectoralis muscle, without definite muscular involvement, with anaggregate measurement of 3.8 cm. LEFT breast 4 mm mass located superior and anterior to the know cancer MRI bx recommended RIGHT breast 1.4 cm NME LOQ - MRI bx recommended RIGHT breast 1.5 cm NME lower central breast - management based on other RIGHT bx LN appear normal ER-DE-HER2- [id number] Presents today for follow up HISTORY: IMPRESSION: SUSPICIOUS RIGHT BREAST: BIRADS 4 1. 1.4 cm linear nonmass enhancement in the lower outer right breast is suspicious. MR guided biopsy is recommended. 2. 1.5 cm clumped non mass enhancement in the lower central right breast may be related to background parenchymal enhancement. Management will be based on histopathology of the biopsied linear nonmass enhancement in the lower outer right breast. LEFT BREAST: BIRADS 4 1. 0.8 cm enhancing mass in the lower inner left breast consistent with known biopsy proven malignancy. There is associated nonmass enhancement extending posteriorly towards the pectoralis muscle, without definite muscular involvement, with an aggregate measurement of 3.8 cm. 2. 0.4 cm enhancing focus superior and anterior to the index malignancy is suspicious. MR guided biopsy is recommended. RIGHT breast MRI bx IMPRESSION: MRI BIOPSY MRI biopsy of the non-mass like enhancement in the right breast lower outer aspect middle depth with placement of a clip was successful with no apparent post procedure complications. Waiting for pathology results. A final report will be issued when these become available. The procedure was reviewed by a staff physician. SUMMARY: RIGHT breast MRI guided biopsy, linear nonmass enhancement, HOURGLASS clip. LEFT breast MRI Bx IMPRESSION: MRI BIOPSY MRI biopsy of the 4 mm mass in the left breast at 7 o'clock middle depth with placement of a clip was successful with no apparent post procedure complications. Waiting for pathology results. A final report will be issued when these become available. Initially, during the MRI biopsy, a T4 butterfly hydromark biopsy marking clip was placed. This is significantly displaced lateral along the biopsy tract (by approximately 7 cm). Therefore, a new, T1 barrel hydromark biopsy marking clip was placed while the patient was under compression and measuring/estimating the tract depth, which is in good position on the postbiopsy mammogram. PATHOLOGY: Component FINAL DIAGNOSIS A. Right breast, MRI guided core needle biopsy with hourglass clip placement:: -- Apocrine metaplasia and cysts. LEFT breast FINAL DIAGNOSIS A. Left breast, 7:00, core needle biopsy with Hydromark butterfly clip placement: -- Benign breast tissue with focal usual ductal hyperplasia, see comment. ROS: HEENT: Denies vision changes or headaches BREAST: Denies palpating any new breast masses, no breast pain, no skin changes, no nipple discharge ABD: Denies any abdominal pain or new changes in bowel habits MUSCULOSKELETAL: Denies any bone, joint or muscle pain IMAGING: IMPRESSION: INFRARED ACTIVATED ELECTROMAGNETIC REFLECTOR DEVICE PLACEMENT Infrared activated electromagnetic reflector device placement for the area of asymmetry in the left breast at 8 o'clock posterior depth with placement of an infrared activated electromagnetic reflector device was successful with no apparent post procedure complications. A surgical excision and a specimen radiograph are recommended. It is noted that the clip is likely migrated from the mass and is not able to be included on the post-biopsy mammogram. THe NORMA reflector is in place at the site of the mammographic mass seen on original diagnostic imaging. Clip placement/activation was verified with Learning Facilitator Check following the procedure. THE PATIENT IS ALSO RECOMMENDED FOR MULTIPLE ADDITIONAL MRI GUIDED BIOPSIES BILATERALLY AND IS SCHEDULED FOR THOSE EXAMS. EXAMINATION: GEN alert and orientated, well nourished, calm Regional Lymph Nodes There is no concerning supraclavicular, infraclavicular or cervical lymphadenopathy. BREASTS: The patient was examined in the upright and supine position. RIGHT breast soft, no dominant masses, nipple everted, no discharge, no skin changes RIGHT axilla no palpable axillary lymphadenopathy LEFT breast soft, no dominant masses, nipple everted, no discharge, no skin changes LEFT axilla no palpable axillary lymphadenopathy ABD soft, non-distended, non-tender, no organomegaly EXT ambulated independently, good ROM of upper extremities, no evidence of lymphedema IMPRESSION: Radha Witt is a 73 year old female with a LEFT breast 1.1 cm mass @ 8:00, 6 cm FN. Bx (bar clip) shows IDC. On MRI there is associated nonmass enhancement extending posteriorly towards the pectoralis muscle, without definite muscular involvement, with anaggregate measurement of 3.8 cm. Norma enforcement manager placed anterior to straight clip LEFT breast 4 mm mass located superior and anterior to the know cancer MRI bx BARREL hydro nichole clip (betterfly clip displaced benign) RIGHT breast 1.4 cm NME LOQ - MRI bx HOURGLASS clip benign and concordant RIGHT breast 1.5 cm NME lower central breast - management based on other RIGHT bx benign and concordant LN appear normal ER-DE-HER2- [id number] PLAN: Discussed the 2 benign MRI biopsies Plan for 6 month follow up MRI She remains interested in breast conservation and understands adjuvant chemo and radiation will be recommended The risks of surgery were discussed with her including bleeding, hematoma, infection, skin necrosis, sensory paresthesias and upper extremity lymphedema, and possible need for additional surgery. Sheacknowledges these risks and agrees to proceed. Consent was signed for: LEFT breast norma enforcement manager localized lumpectomy, LEFT sentinel lymph node mapping and biopsy A tentative surgical date for 11/11/23 was given at She has our names and numbers to stay in touch if she has any questions, concerns or problems in the interim. Evita Sanchez DO Breast Surgeon Cc Dr. Karena Pierre documented in this encounterMercy [facility] Hospital08-12-2024 NoteShelby Memorial Hospital08-12-2024 Nurse Note* Crystal Connolly LPN - 11/11/2023 12:09 PM EDT Discuss results Last mammogram on: 08/22/2023 bilateral Results: see report Is the patient active on MyChart Yes Electronically Signed By: Crystal Connolly LPN In Department: [facility] REVIEW OF PATIENT HISTORY: OB History T0 L0 SAB0 IAB0 Ectopic0 Multiple0 Live Births0 FAMILY HISTORY Problem Relation Age of Onset Cancer Mother uterine Heart Mother Heart Father Hypertension Father Diabetes Father type II other (Multiple myloma) Father other (Fistula) Maternal Grandmother other (Hemochromatosis) Paternal Uncle Anesthesia Problems No Family History PAST MEDICAL HISTORY 08/22/2023: Abnormal mammogram of left breast Comment: 08/27/23 abnormal diagnostic left breast ultrasound. 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 11) No date: Essential hypertension, benign Comment: on Toprol No date: Female stress incontinence No date: Migraine with aura, without mention of intractable migraine without mention of status migrainosus No date: Nonspecific (abnormal) findings on radiological and other examination of gastrointestinal tract PAST SURGICAL HISTORY No date: BREAST SURGERY HX Comment: biopies as teenager and early 30s, small lumpectomy 01/31/2017: BX BREAST W/DEVICE 1ST LESION STEREOTACTIC GUID; Right Comment: Benign microcalcifications and a fibroadenoma 2023: BX OF BREAST; INCISIONAL 04/04/2021: COLON SURGERY HX Comment: LAPAROSCOPIC COLECTOMY SIGMOID COLON W/ COLORECTAL ANASTOMOSIS 12/20/2006: COLONOSCOPY FLX DX W/COLLJ SPEC WHEN PFRMD 12/20/2016: COLONOSCOPY FLX DX W/COLLJ SPEC WHEN PFRMD Comment: Colonoscopy 03/16/2021: COLONOSCOPY FLX DX W/COLLJ SPEC WHEN PFRMD No date: PAST SURGICAL HISTORY OF Comment: breast biopsies x 2 No date: SKIN BIOPSY HX No date: TONSILLECTOMY PRIMARY/SECONDARY No date: TOTAL ABDOMINAL HYSTERECT W/WO RMVL TUBE OVARY Comment: Hysterectomy, NEO uterine cancer 09/2023: US BREAST NEEDLE CORE BIOPSY LT; Left Social History Tobacco Use Smoking status: Never Smokeless tobacco: Never Vaping Use Vaping Use: Never used Substance Use Topics Alcohol use: Yes Comment: rare Drug use: No [facility] Work Phone: [phone]) 205-766008-12-2024 Nurse Note* Crystal Connolly LPN - 11/11/2023 12:09 PM EDT Discuss results Last mammogram on: 08/22/2023 bilateral Results: see report Is the patient active on MyChart Yes Electronically Signed By: Crystal Connolly LPN In Department: [facility] REVIEW OF PATIENT HISTORY: OB History T0 L0 SAB0 IAB0 Ectopic0 Multiple0 Live Births0 FAMILY HISTORY Problem Relation Age of Onset Cancer Mother uterine Heart Mother Heart Father Hypertension Father Diabetes Father type II other (Multiple myloma) Father other (Fistula) Maternal Grandmother other (Hemochromatosis) Paternal Uncle Anesthesia Problems No Family History PAST MEDICAL HISTORY 08/22/2023: Abnormal mammogram of left breast Comment: 08/27/23 abnormal diagnostic left breast ultrasound. 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 11) No date: Essential hypertension, benign Comment: on Toprol No date: Female stress incontinence No date: Migraine with aura, without mention of intractable migraine without mention of status migrainosus No date: Nonspecific (abnormal) findings on radiological and other examination of gastrointestinal tract PAST SURGICAL HISTORY No date: BREAST SURGERY HX Comment: biopies as teenager and early 30s, small lumpectomy 01/31/2017: BX BREAST W/DEVICE 1ST LESION STEREOTACTIC GUID; Right Comment: Benign microcalcifications and a fibroadenoma 2023: BX OF BREAST; INCISIONAL 04/04/2021: COLON SURGERY HX Comment: LAPAROSCOPIC COLECTOMY SIGMOID COLON W/ COLORECTAL ANASTOMOSIS 12/20/2006: COLONOSCOPY FLX DX W/COLLJ SPEC WHEN PFRMD 12/20/2016: COLONOSCOPY FLX DX W/COLLJ SPEC WHEN PFRMD Comment: Colonoscopy 03/16/2021: COLONOSCOPY FLX DX W/COLLJ SPEC WHEN PFRMD No date: PAST SURGICAL HISTORY OF Comment: breast biopsies x 2 No date: SKIN BIOPSY HX No date: TONSILLECTOMY PRIMARY/SECONDARY <AGE 14 No date: TOTAL ABDOMINAL HYSTERECT W/WO RMVL TUBE OVARY Comment: Hysterectomy, NEO uterine cancer 09/2023: US BREAST NEEDLE CORE BIOPSY LT; Left Social History Tobacco Use Smoking status: Never Smokeless tobacco: Never Vaping Use Vaping Use: Never used Substance Use Topics Alcohol use: Yes Comment: rare Drug use: No documented in this encounterMer[facility]08-[facility]24 History of Present illness Narrative* Tahira Contreras RT(R) - 11/08/2023 12:00 PM EDT Radiology Service Progress Note DATE OF SERVICE: November 08, 2023 TIME: 11:58 AM PATIENT IDENTITY VERIFICATION COMPLETED USING TWO (2) STANDARD IDENTIFIERS: Name and Date of confirmed by patient verbally. FALL SCREENING: Has the patient had 2 falls in the last year or 1 fall with injury or currently using an Ambulatory Assistive Device (Walker, Cane, Wheelchair, Crutches, etc.)? No PATIENT GENDER DATA: Female. status: : No status: NO. PATIENT RELEVANT IMPLANT DATA REVIEWED: Yes PATIENT PRESENTS WITH AN IMPLANTABLE OR ATTACHED CONSTRUCTION ESTIMATOR: No ALLERGIES: Reviewed and unchanged CONTRAST ALLERGY: NO. EXAM: MRI - CONTRAST TYPE: GROUP II PERIPHERAL IV DATA: Ambulatory: A peripheral IV was started in the Right hand with a Angio cath: 24gauge. RADIOLOGY DEPARTMENT: MR; Exam(s) Completed: Chest: Breast 0 MRI Left Breast Biopsy. Post Procedural instructions given. SIGNATURE: RT Luis E(R) PATIENT NAME: Radha Witt DATE: November 08, 2023 TIME: 11:58 AM documented in this encounterMer[facility]08-09-2024 NoteS[facility]08-[facility] History of Present illness Narrative* Shana Norris, RT(R) - 11/07/2023 12:00 PM EDT Radiology Service Progress Note DATE OF SERVICE: November 07, 2023 TIME: 12:04 PM PATIENT IDENTITY VERIFICATION COMPLETED USING TWO (2) STANDARD IDENTIFIERS: Name and Date of confirmed by patient verbally and Name and Date of confirmed by identification band. FALL SCREENING: Has the patient had 2 falls in the last year or 1 fall with injury or currently using an Ambulatory Assistive Device (Walker, Cane, Wheelchair, Crutches, etc.)? No PATIENT GENDER DATA: Female. status: : No status: NO. PATIENT RELEVANT IMPLANT DATA REVIEWED: Yes PATIENT PRESENTS WITH AN IMPLANTABLE OR ATTACHED CONSTRUCTION ESTIMATOR: No ALLERGIES: Reviewed and unchanged CONTRAST ALLERGY: NO. EXAM: MRI - CONTRAST TYPE: GROUP II PERIPHERAL IV DATA: Ambulatory: A peripheral IV was started in the Left antecubital site with a Angio cath: 22 gauge. RADIOLOGY DEPARTMENT: MR; Exam(s) Completed: Chest: Breast and RIGHT Breast Biopsy SIGNATURE: RT Daiz(MR) PATIENT NAME: Radha Witt DATE: November 07, 2023 TIME: 12:04 PM documented in this encounterMercy [facility] Hospital08-08-2024 NoteShel[facility]08-05-2024 Nurse Note* Crystal Connolly LPN - 11/04/2023 10:38 AM EDT AMBULATORY PATIENT EDUCATION NOTE TOPIC: LEFT norma partial mastectomy with SN bx READINESS TO LEARN COGNITIVE ABILITY: Alert and oriented MOTIVATION TO LEARN: Interested FAMILY SUPPORT: Low - Inconsistent family involvement INSTRUCTION PROVIDED TO: Patient PATIENT LEARNS BEST BY: Multiple Methods FACTORS AFFECTING LEARNING: None PHYSICAL LIMITATIONS AFFECTING LEARNING: None LEARNING RESPONSE DIAGNOSIS: C50.312 METHOD OF INSTRUCTION: Individual instruction Written instruction/Handouts Verbal instruction PATIENT / FAMILY RESPONSE: Verbalizes understanding of: INFECTION MANAGEMENT- Signs and symptoms of an infection and importance of contacting the physician MEDICATION PRESCRIBED-Accurate knowledge of prescribed medication prior to discharge MEDICATION ROUTE-Correct route for administration of the prescribed medication MEDICATION SIDE EFFECTS-Side effects associated with the medication that warrant a call to the physician PAIN MANAGEMENT-Effective strategies to manage pain in addition to pain medication PHYSICAL RESTRICTIONS-Physical restrictions and recommendations after discharge from the hospital POST-OPERATIVE INSTRUCTIONS-Correct actions to take to reduce postoperative complications PRE-OPERATIVE INSTRUCTIONS-Correct action to take to follow pre-operative instructions PATIENT SAFETY PRINCIPLES SYMPTOM MANAGEMENT-Correct actions to take to manage symptoms associated with his/her disease/illness VTE prevention measures WORSENING CONDITION-Signs and symptoms of a worsening condition that warrant a call to the physician WOUND CARE-Correct procedure to perform wound care FOLLOW-UP PLAN: Patient instructed to call with any further issues SUPPLEMENTAL MATERIAL: Your Surgical Guide for [facility] REFERRAL (RECOMMENDATION): None Electronically Signed By: Crystal Connolly LPN In Department: [facility] Time spent on patient education: 20 minutes. [facility] Nurse Note* Crystal Connolly LPN - 11/04/2023 10:38 AM EDT AMBULATORY PATIENT EDUCATION NOTE TOPIC: LEFT norma partial mastectomy with SN bx READINESS TO LEARN COGNITIVE ABILITY: Alert and oriented MOTIVATION TO LEARN: Interested FAMILY SUPPORT: Low - Inconsistent family involvement INSTRUCTION PROVIDED TO: Patient PATIENT LEARNS BEST BY: Multiple Methods FACTORS AFFECTING LEARNING: None PHYSICAL LIMITATIONS AFFECTING LEARNING: None LEARNING RESPONSE DIAGNOSIS: C50.312 METHOD OF INSTRUCTION: Individual instruction Written instruction/Handouts Verbal instruction PATIENT / FAMILY RESPONSE: Verbalizes understanding of: INFECTION MANAGEMENT- Signs and symptoms of an infection and importance of contacting the physician MEDICATION PRESCRIBED-Accurate knowledge of prescribed medication prior to discharge MEDICATION ROUTE-Correct route for administration of the prescribed medication MEDICATION SIDE EFFECTS-Side effects associated with the medication that warrant a call to the physician PAIN MANAGEMENT-Effective strategies to manage pain in addition to pain medication PHYSICAL RESTRICTIONS-Physical restrictions and recommendations after discharge from the hospital POST-OPERATIVE INSTRUCTIONS-Correct actions to take to reduce postoperative complications PRE-OPERATIVE INSTRUCTIONS-Correct action to take to follow pre-operative instructions PATIENT SAFETY PRINCIPLES SYMPTOM MANAGEMENT-Correct actions to take to manage symptoms associated with his/her disease/illness VTE prevention measures WORSENING CONDITION-Signs and symptoms of a worsening condition that warrant a call to the physician WOUND CARE-Correct procedure to perform wound care FOLLOW-UP PLAN: Patient instructed to call with any further issues SUPPLEMENTAL MATERIAL: Your Surgical Guide for [facility] REFERRAL (RECOMMENDATION): None Electronically Signed By: Crystal Connolly LPN In Department: [facility] Time spent on patient education: 20 minutes. documented in this encounterMercy [facility] Hospital07-31-2024 NoteS[facility]07-31-2024 History of Present illness Narrative* Crystal Fuentes RN - 10/30/2023 11:23 AM EDT [facility] Telephonic Outreach Provider Action/FYI Call placed to the patient. Denies any medical needs at this time. Patient encouraged to call PCP with any medical needs or concerns and the patient agrees to do so. Contacted for: Routine Telephonic Outreach Contact made with patient: Yes Patient identified by name and date of . Discussed care with spouse Are you experiencing any new or worsening symptoms you need to talk about today? No Disease Specific Do you check your blood pressure at home? Yes, Enter readings: 125/65 Do you have new or worsening shortness of breath with activity? No Based on assessment technician, the following disposition is advised: No symptoms or symptoms present, not severe. Routed to: No Action Needed FERNANDA Education Provided this Outreach: No . Crystal Fuentes RN October 30, 2023 2:11 PM documented in this encounterMercy [facility] Hospital07-25-2024 Nurse Note* Ally Albarado RN - 10/24/2023 9:37 AM EDT Radiation Therapy - Nursing Note (Consult) PATIENT NAME: Radha Witt PATIENT October 24, 2023 [facility] FACILITY/LOCATION: [place] Chief Complaint: consult Reason for visit: Consult. Referring physician: Internal provider Dr Sanchez Subjective Data: no complaints Additional Data Do you want to see a Accounting Teacher? No Are you interested in information about fertility? No Status: History of hysterectomy Stress Scale: On a scale of 0 to 10, what number best describes how much distress you have experienced in the past week?(0 being no distress and 10 being extreme distress) 5 Social work notified: Pt denied need to see social media executive at this time. SIGNED by: Ally Albarado RN [facility] Nurse Note* Ally Albarado RN - 10/24/2023 9:37 AM EDT Radiation Therapy - Nursing Note (Consult) PATIENT NAME: Radha Witt PATIENT October 24, 2023 [facility] FACILITY/LOCATION: [place] Chief Complaint: consult Reason for visit: Consult. Referring physician: Internal provider Dr Sanchez Subjective Data: no complaints Additional Data Do you want to see a Accounting Teacher? No Are you interested in information about fertility? No Status: History of hysterectomy Stress Scale: On a scale of 0 to 10, what number best describes how much distress you have experienced in the past week?(0 being no distress and 10 being extreme distress) 5 Social work notified: Pt denied need to see social media executive at this time. SIGNED by: Ally Albarado RN documented in this encounterMercy Memorial Hospital07-25-2024 NoteS[facility]07-25-2024 History of Present illness Narrative* Benson Pierre MD - 10/24/2023 9:19 AM EDT Radiation Oncology - New Patient/Consult Note PATIENT NAME: Radha Witt PATIENT REQUESTING PROVIDER: Dr. Evita Sanchez DIAGNOSIS: Clinical stage IA, cT1c, cN0, grade 3 invasive ductal carcinoma of the left breast. It'sER negative (<1%), DE negative (<1%) and Her2 0. HPI: 73 year old female who presents with above diagnosis, for an opinion regarding the role of radiation therapy in the management of the patient's disease. Final recommendations will be communicated back to the requesting physician by way of the shared medical record, or letter to requesting physician via US mail. 73 year old woman who had an abnormal screening mammogram on 08/23/23. It showed focal asymmetry in the left breast. Diagnostic left mammogram on 08/27/23 showed 1.1 cm asymmetry. US showed a 0.6 cm x 0.6 cm x 0.7 cm oval mass with a circumscribed margin in the left breast at 8 o'clock middle depth. Core biopsy of the left breast lesion on 09/25/23 showed grade 3 invasive ductal carcinoma measuring7 mm. It's ER negative (<1%), DE negative (<1%) and Her2 0. MRI breasts on 10/21/23 showed a 0.8 cm enhancing mass in the lower inner left breast consistent with known biopsy proven malignancy. There is associated nonmass enhancement extending posteriorly towards the pectoralis muscle, without definite muscular involvement, with an aggregate measurement of 3.8 cm. 0.4 cm enhancing focus superior and anterior to the index malignancy is suspicious. In the right breast, 1.4 cm linear nonmass enhancement in the lower outer right breast is suspicious. 1.5 cm clumped non mass enhancement in the lower central right breast may be related to background parenchymal enhancement. There is no internal mammary or axillary lymphadenopathy. She is scheduled to have MRI guided biopsy of the suspicious lesions on 11/07/23. ALLERGIES Allergen Reactions Adhesive Rash bandaids Tetracyclines Rash Current Outpatient Medications on File Prior to Visit Medication Sig acetaminophen 300 mg-caffeine 40 mg-butalbital 50 mg (FIORICET) per capsule Take 1 capsule by mouthevery 4 hours as needed for headache. aspirin, enteric coated (ASPIRIN, ENTERIC COATED) 81 mg EC tablet Take 81 mg by mouth once daily. acetaminophen (TYLENOL) 325 mg tablet Take 2 tablets by mouth every 4 hours as needed for pain. ZINC ORAL Take 50 mg by mouth once daily. calcium carbonate/vitamin D3 (CALCIUM 600 + D ORAL) Take 1,200 mg by mouth. atorvastatin 10 mg tablet Take 10 mg by mouth once daily. metoprolol succinate XL (TOPROL XL) 50 mg ORAL 24 hr tablet Take 1 tablet by mouth once daily. MULTIVITAMIN TABLET Take one(1) tablet daily. No current facility-administered medications on file prior to visit. PAST MEDICAL HISTORY Diagnosis Date Abnormal mammogram of left breast 08/22/2023 08/27/23 abnormal diagnostic left breast ultrasound. 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 No status: Post-menopausal. PAST SURGICAL HISTORY Procedure Laterality Date BREAST SURGERY HX biopies as teenager and early 30s, small lumpectomy BX BREAST W/DEVICE 1ST LESION STEREOTACTIC GUID Right 01/31/2017 Benign microcalcifications and a fibroadenoma BX OF BREAST; INCISIONAL 2023 COLON SURGERY HX 04/04/2021 LAPAROSCOPIC COLECTOMY SIGMOID COLON W/ COLORECTAL ANASTOMOSIS COLONOSCOPY FLX DX W/COLLJ SPEC WHEN PFRMD 12/20/2006 COLONOSCOPY FLX DX W/COLLJ SPEC WHEN PFRMD 12/20/2016 Colonoscopy COLONOSCOPY FLX DX W/COLLJ SPEC WHEN PFRMD 03/16/2021 PAST SURGICAL HISTORY OF breast biopsies x 2 SKIN BIOPSY HX TONSILLECTOMY PRIMARY/SECONDARY <AGE 14 TOTAL ABDOMINAL HYSTERECT W/WO RMVL TUBE OVARY Hysterectomy, NEO uterine cancer US BREAST NEEDLE CORE BIOPSY LT Left 09/2023 FAMILY HISTORY Problem Relation Age of Onset Cancer Mother uterine Heart Mother Heart Father Hypertension Father Diabetes Father type II other (Multiple myloma) Father other (Fistula) Maternal Grandmother other (Hemochromatosis) Paternal Uncle Anesthesia Problems No Family History Social History Tobacco Use Smoking status: Never Smokeless tobacco: Never Vaping Use Vaping Use: Never used Substance Use Topics Alcohol use: Yes Comment: rare Drug use: No COMPLETE REVIEW OF SYSTEMS: GENERAL: feeling well without fatigue, no recent change in weight HEENT: denies CHANEY, change in hearing or vision, no other ENT complaints NECK: denies swelling or pain in neck RESPIRATORY: no cough, no wheezing or shortness of breath CARDIOVASCULAR: rare palpitations and MV prolapse. GI: occasional diarrhea and h/o diverticulitis. : mild urgency. MUSCULOSKELETAL: arthritis of bilateral hips. SKIN: no rash HEMATOLOGY/LYMPHOLOGY: negative for prolonged bleeding, no swollen lymph nodes NEURO: no numbness or paresthesias and no weakness of the extremities PHYSICAL EXAM: VS: BP 116/78 Pulse 61 Temp 36.7 C (98.1 F) Resp 14 Wt 77.3 kg (170 lb 8 oz) LMP 04/07/2004 SpO2 97% BMI 25.18 kg/m KPS: 100 General Appearance: Alert and oriented. No acute distress. HEENT: NCAT. Sclera anicteric. EOMI. Neck: Normal ROM. Chest: No respiratory distress. Breasts: There is no dominant mass, suspicious skin change or nipple discharge bilaterally. Abdomen: Soft. Nontender. Nondistended. Musculoskeletal: No edema. Normal ROM in extremities. Neuro: Speech fluent. Gait normal. No focal deficits. Skin: No rashes noted Lymphatics: No palpable cervical or supraclavicular or axillary adenopathy. Hematologic: No signs of active bleeding. RADIOLOGY/LABORATORY DATA: see HPI ASSESSMENT AND PLAN: 73 year old woman with Clinical stage IA, cT1c, cN0, grade 3 invasive ductal carcinoma of the left breast. It's ER negative (<1%), DE negative (<1%) and Her2 0. She has other suspicious lesions on MRI breast and is schedule to have MRI guided biopsy early nextmonth. She is tentatively scheduled to have left breast lumpectomy and sentinel node biopsy on 11/12/23. She has triple negative breast cancer and I discussed the role of radiation treatment in managementof breast cancer overall. I explained the rationale, benefits, alternative management options and potential complications of radiation treatment to the patient and she understands I will see her again after surgery to go over surgical pathology and recommendation of radiation treatment. Thank you very much for allowing us to participate in her care. Signed by: Benson Pierre MD cc: Luna Cope [address] [place] [address] Evita Sanchez [id number] [facility] [id number] Glen Iglesias documented in this encounterMercy [facility] Hospital07-25-2024 NoteS[facility]07-25-2024 History of Present illness Narrative* Glen Iglesias MD - 10/24/2023 9:09 AM EDT HISTORY OF PRESENT ILLNESS: Radha Witt is a 73 year old female referred for medical oncology care after new diagnosis left triple negative breast cancer. We discussed role of systemic chemotherapy in management of this entity. Reviewed imaging thus far: cT1bN0 with additional enhancement posteriorly on breast MRI Multiple additional lesion noted on breast MRI, biopsies pending. History uterine cancer [facility] 2-06-03 Discussed genetic counseling, she has no children of siblings, but will consider. CLINICAL IMPRESSION: Clinically early stage left TNBC. RECOMMENDATION/PLAN: 1. Await results of additional biopsies. 2. Barring new findings, given clinical stage would favor up front lumpectomy followed by stage appropriate adjuvant chemotherapy. Written and verbal health teaching given to patient, patient verbalizes understanding and agrees with treatment plan. PAST MEDICAL HISTORY Diagnosis Date Abnormal mammogram of left breast 08/22/2023 08/27/23 abnormal diagnostic left breast ultrasound. 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 Difficult intravenous access 04/03/2021 Diverticulitis of colon (without mention of hemorrhage)(562.11) Essential hypertension, benign on Toprol Female stress incontinence Migraine with aura, without mention of intractable migraine without mention of status migrainosus Nonspecific (abnormal) findings on radiological and other examination of gastrointestinal tract PAST SURGICAL HISTORY Procedure Laterality Date BREAST SURGERY HX biopies as teenager and early 30s, small lumpectomy BX BREAST W/DEVICE 1ST LESION STEREOTACTIC GUID Right 01/31/2017 Benign microcalcifications and a fibroadenoma BX OF BREAST; INCISIONAL 2023 COLON SURGERY HX 04/04/2021 LAPAROSCOPIC COLECTOMY SIGMOID COLON W/ COLORECTAL ANASTOMOSIS COLONOSCOPY FLX DX W/COLLJ SPEC WHEN PFRMD 12/20/2006 COLONOSCOPY FLX DX W/COLLJ SPEC WHEN PFRMD 12/20/2016 Colonoscopy COLONOSCOPY FLX DX W/COLLJ SPEC WHEN PFRMD 03/16/2021 PAST SURGICAL HISTORY OF breast biopsies x 2 SKIN BIOPSY HX TONSILLECTOMY PRIMARY/SECONDARY <AGE 14 TOTAL ABDOMINAL HYSTERECT W/WO RMVL TUBE OVARY Hysterectomy, NEO uterine cancer US BREAST NEEDLE CORE BIOPSY LT Left 09/2023 FAMILY HISTORY Problem Relation Age of Onset Cancer Mother uterine Heart Mother Heart Father Hypertension Father Diabetes Father type II other (Multiple myloma) Father other (Fistula) Maternal Grandmother other (Hemochromatosis) Paternal Uncle Anesthesia Problems No Family History Social History Tobacco Use Smoking status: Never Smokeless tobacco: Never Vaping Use Vaping Use: Never used Substance Use Topics Alcohol use: Yes Comment: rare Drug use: No ALLERGIES: ALLERGIES Allergen Reactions Adhesive Rash bandaids Tetracyclines Rash CURRENT OUTPATIENT MEDICATIONS: acetaminophen 300 mg-caffeine 40 mg-butalbital 50 mg (FIORICET) per capsule Take 1 capsule by mouthevery 4 hours as needed for headache. aspirin, enteric coated (ASPIRIN, ENTERIC COATED) 81 mg EC tablet Take 81 mg by mouth once daily. acetaminophen (TYLENOL) 325 mg tablet Take 2 tablets by mouth every 4 hours as needed for pain. ZINC ORAL Take 50 mg by mouth once daily. calcium carbonate/vitamin D3 (CALCIUM 600 + D ORAL) Take 1,200 mg by mouth. atorvastatin 10 mg tablet Take 10 mg by mouth once daily. metoprolol succinate XL (TOPROL XL) 50 mg ORAL 24 hr tablet Take 1 tablet by mouth once daily. MULTIVITAMIN TABLET Take one(1) tablet daily. REVIEW OF SYSTEMS: GENERAL: No fever, night sweats, weight loss or malaise. All other reviewed and negative other than HPI. PHYSICAL EXAMINATION: VITAL SIGNS: BP 116/78[right arm[ Pulse 61 Temp (Src) 98.1 (Oral) Resp 14 Ht 5' 9 (1.75m) Wt 170 lb 8 oz (77.3kg) SpO2 97% LMP 04/07/2004 BMI 25.17 kg/(m^2). GENERAL APPEARANCE: Well appearing, in no acute distress, alert and oriented x3, well-hydrated, well nourished. I spent a total of 60 minutes on the date of the service which included preparing to see the patient, [id number] patient care, completing clinical documentation, obtaining and/or reviewing separately obtained history, counseling and educating the patient/family/caregiver, communicating with other HCPs (not separately reported), independently interpreting results (not separately reported), and communicating results to the patient/family/caregiver. Electronically Signed: Glen Iglesias MD October 24, 2023 9:09 AM documented in this encounterMercy Memorial Hospital07-24-2024 Instructions* Patient Education - Yuko Cordon RT(R) - 10/23/2023 9:55 AM EDT AMBULATORY PATIENT EDUCATION RADIOLOGY TOPIC: Pre- Procedure Teaching:Logistics / Protocols / Complication Prevention Post- Procedure Teaching: Symptom Management / Wound Care READINESS TO LEARN COGNITIVE ABILITY: Alert and oriented MOTIVATION TO LEARN: Interested FAMILY SUPPORT: Unable to assess - Family not present INSTRUCTION PROVIDED TO: Patient PATIENT LEARNS BEST BY: Individual Instruction Verbal Instruction FACTORS AFFECTING LEARNING: None PHYSICAL LIMITATIONS AFFECTING LEARNING: None LEARNING RESPONSE Radiology Procedures Ultrasound Guided Needle Localization METHOD OF INSTRUCTION: Individual instruction PATIENT / FAMILY RESPONSE: Performs skill independently: Wound care FOLLOW-UP PLAN: Complete - No need for follow-up SUPPLEMENTAL MATERIAL: Homegoing instructions REFERRAL (RECOMMENDATION): None [facility] Miscellaneous Notes* Patient Education - Yuko Cordon RT(R) - 10/23/2023 9:55 AM EDT AMBULATORY PATIENT EDUCATION RADIOLOGY TOPIC: Pre- Procedure Teaching:Logistics / Protocols / Complication Prevention Post- Procedure Teaching: Symptom Management / Wound Care READINESS TO LEARN COGNITIVE ABILITY: Alert and oriented MOTIVATION TO LEARN: Interested FAMILY SUPPORT: Unable to assess - Family not present INSTRUCTION PROVIDED TO: Patient PATIENT LEARNS BEST BY: Individual Instruction Verbal Instruction FACTORS AFFECTING LEARNING: None PHYSICAL LIMITATIONS AFFECTING LEARNING: None LEARNING RESPONSE Radiology Procedures Ultrasound Guided Needle Localization METHOD OF INSTRUCTION: Individual instruction PATIENT / FAMILY RESPONSE: Performs skill independently: Wound care FOLLOW-UP PLAN: Complete - No need for follow-up SUPPLEMENTAL MATERIAL: Homegoing instructions REFERRAL (RECOMMENDATION): None documented in this encounterMercy Memorial Hospital07-24-2024 Instructions* Patient Instructions* Don Grijalva APRN.CNP - 10/23/2023 9:03 AM EDT PATIENT PREOPERATIVE INSTRUCTIONS No ref. provider found has scheduled you for your procedure at this surgery center: If no call by 4pm the day before surgery, please call this number. [facility]: [phone] --[id number] [address]. Please check in on the1st floor at registration desk 6. Please read below carefully for your personalized instructions. Dietary Restrictions: - No solid food after midnight. - You may have 12 ounces of clear liquids (water, clear juices such as apple juice or gatorade, carbonated beverages, clear tea, black coffee, jello) until 2 hours before scheduled arrival at facility. - Do not drink any alcohol after midnight the night before your surgery. Medications: Unless instructed differently below, stay on all of your medications until your surgery. If you start any new medications after today's visit, please contact your surgeon. Pre-Surgery Med Instructions Medication Instructions acetaminophen 300 mg-caffeine 40 mg-butalbital 50 mg (FIORICET) per capsule Do not take the day of surgery aspirin, enteric coated (ASPIRIN, ENTERIC COATED) 81 mg EC tablet Stop 7 days before surgery acetaminophen (TYLENOL) 325 mg tablet Ok to take morning of surgery if needed ZINC ORAL Stop 7 days before surgery calcium carbonate/vitamin D3 (CALCIUM 600 + D ORAL) Stop 7 days before surgery atorvastatin 10 mg tablet Take the day of surgery with a small sip of water metoprolol succinate XL (TOPROL XL) 50 mg ORAL 24 hr tablet Take the day of surgery with a small sip of water MULTIVITAMIN TABLET Stop 7 days before surgery If you take any medications for erectile dysfunction-Cialis (Tadalafil), Levitra, Staxyn (Vardenafil) Viagra (Sildenenafil please do not take these for 48 hours before surgery. If you start any new medications after today's visit, please contact the surgeon's office. Blood Thinning Medications: - Stop NSAIDS (Ibuprofen, Advil, Aleve, Motrin, Celebrex, Mobic, etc.) 7 days before surgery, as directed by your surgeon. - Stop Aspirin 7 days before surgery, as directed by your surgeon. - Stop Vitamin E, ALL multi-vitamins, herbals and dietary supplements 7 days before surgery. - You may take Tylenol (Acetaminophen) or any of your pain medications that do not contain aspirin or NSAIDS as needed. Important Reminders: - If you use CPAP/BIPAP, bring the machine with you to the surgery center. - If you are prescribed inhalers for breathing, continue using them. - Candy, mints, and tobacco products are NOT permitted the morning of surgery. - Hearing aids, dentures and glasses may be worn the morning of surgery. - NO jewelry, body piercings, makeup, hairpins or contacts are to be worn the day of surgery. If you develop symptoms such as a fever, cold, or flu, or have other changes to your health within TWO DAYS of scheduled surgery or the morning of surgery, please contact the surgery center above. Personal Belongings: -Please have photo ID and insurance cards. -If you do not have a copy of advance directives on file with us, please bring a copy with you on the day of surgery. - Leave ALL valuables and money at home or with family members. For Outpatient Procedures: - YOU MUST HAVE A RESPONSIBLE SPOOLER RUBBER STRAND TAKE YOU HOME. A DOPE HEATER OR RESOLUTION EXPERT CANNOT BE MADE A RESPONSIBLE SPOOLER RUBBER STRAND. - We recommend that a responsible person stays with you overnight to take care of you. - You cannot stay in a hotel alone after outpatient surgery. You will not be permitted to have yoursurgery, if you do not have someone to take care of you. Arrival Time for Surgery: - To obtain your arrival time for surgery, call your physician's office the day before your surgery. - If your surgery is scheduled for Saturday, call the Saturday before. Your surgeon s bullet swaging machine operator will tell you what time to call the office. - If you have not reached the departmental bullet swaging machine operator by 5 P.M., call [phone] after 5 P.M. the day before your surgery. Please be aware that emergency situations arise, which may delay or change your surgical time. If this happens, we will notify you as soon as possible and regret any inconvenience. If you already have an Advance Directive, please fax a copy to [phone] or email to for it to be added to your chart. If you do not have an Advance Directive, you can find the appropriate form and more information at [email or web address]. We recommend that youcomplete the Advance Directive form found on the website and bring it with you the day of your surgery. It can be witnessed and scanned into your chart that day. Don Grijalva APRN.CNP [facility] History and physical note * Don Grijalva APRN.CNP - 10/23/2023 8:00 AM EDT Images from the original note were not included. [facility] HISTORY AND PHYSICAL EXAMINATION SERVICE DATE: 10/23/2023 SERVICE TIME: 8:48 AM PRIMARY CARE PHYSICIAN: Luna Cope MD Assessment Patient has the following medical conditions which may affect rebekah-operative course: Difficult intravenous access multiple sticks Recommend use of US machine for assistance PONV (postoperative nausea and vomiting) Patient endorses PONV Symptoms presented with premedication Stage 3a chronic kidney disease (HCC) CMP: BUN 19 06/12/2023 Creatinine 1.04 06/12/2023 CMP pending today History of uterine cancer hx uterine ca sp total hysterectomy History of partial colectomy Related to perforated diverticulitis in 2021 Denies active issues or concerns MVP (mitral valve prolapse) Last Echo scanned in chart 2016 Mild MVP Denies cardiac symptoms EKG pending today Follows with Wet End Supervisor annually at OSH Essential hypertension, benign Managed on metoprolol Denies cardiac symptoms EKG pending today Follows with Wet End Supervisor annually at OSH Hyperlipidemia Managed on Atorvastatin Reed Activity Status Index: METS: Take care of self; that is eating, dressing, bathing, using the toilet (2.75 METs) Walk a block or two on level ground (2.75 METs) Do moderate work around the house, such as vacuuming, sweeping floors, or carrying in groceries (3.50 METs) Climb a flight of stairs or walk up a hill (5.50 METs) DASI Score: 14.5 Patient denies any chest pain or undue shortness of breath with the above physical activity. Clinical Frailty Scale: 3. Well, with treated comorbid disease STOP-Bang Score: Has or is being treated for high blood pressure Patient over 50 years old Denies snoring loudly Denies feeling tired, fatigued, or sleepy during the daytime Has not been observed to stop breathing or choking/gasping during sleep BMI less than or equal to 35 kg/m^2 Does not have a large neck Non-male patient STOP-Bang Score: 2 [id number] Score: Hypertension history: Yes [id number] Score: ANESTHESIA FINDINGS: Intubation History: No history of difficult intubation. No abnormal airway history Significant Anesthesia Considerations: PONV; Denies use of vein finder or US machine for assistance- difficult with IV placement potential postop nausea/vomiting potential difficult IV/vein access Airway History: No history of difficult airway No abnormal airway history I - PHYSICAL EVALUATION AIRWAY Patient intubated: No. Tracheostomy tube not present Mallampati: IV. TM distance: >3 FB. Neck ROM: limited extension. Mouth opening: adequate. Short neck: no. Additional comments: Limited turning side to side . Thick neck: no Wilson present: no Lip Bite Test: II Microretrognathia/Micronagthia/Recessed Chin: No DENTAL Dental findings: teeth intact. Additional comments: crowns . II - ANESTHESIA PLAN Anesthetic plan additional comments: *PACC/TCI - anesthesia choice. Beta Mona Monitoring Plan Post Procedure Analgesic Plan Prepared for Surgery: optimally prepared for surgery, pending [see comment]. EKG, CMP, CBC ordered by me CONSULTS: Patient does not require consults for optimization at this time Planned Anesthetic: anesthesia choice The Following Tests/Procedures Have Been Initiated: Orders Placed This Encounter CMP Standing Status: Future Standing Expiration Date: 01/22/2024 Complete Blood Count and Differential Standing Status: Future Standing Expiration Date: 01/22/2024 acetaminophen 300 mg-caffeine 40 mg-butalbital 50 mg (FIORICET) per capsule Sig: Take 1 capsule by mouth every 4 hours as needed for headache. ECG COMPLETE Standing Status: Future Number of Occurrences: 1 Standing Expiration Date: 10/22/2024 REASON FOR VISIT: Radha Witt is a 73 year old female who is scheduled for Procedure(s): MASTECTOMY PARTIAL (Left) PLACEMENT OF BREAST LOCALIZATION DEVICE(S) PERCUTANEOUS; FIRST LESION, MAMMOGRAPHIC GUIDANCE (Left) INTRAOPERATIVE ID OF SENTINEL LYMPH NODE(S) INCL'D INJECTION OF NON-RAD DYE WHEN PERFORMED (Left) BIOPSY NODE SENTINEL AXILLARY (Left) at the request of Evita Meza DO for consultation. My final recommendation will be communicated back to the requesting physician by way of shared medical record or letter. 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 CHIEF COMPLAINT: Preop exam HPI: Radha Witt is a 73 year old female with PMHx htn, insomnia, hld, CKD, mitral valve prolapse, hx uterine ca. Presents to PACC today for preop exam. Patient is scheduled for the above procedure on 11/12/23. Patient with L sided breast cancer confirmed on imaging. Awaiting biopsies and then plan for surgery. Denies fevers, chills, chest pain, and SOB. REVIEW OF SYSTEMS: General: Negative for: weight loss >10% of BW in last 6 months, malaise and fever. Neurological: Negative for: BASKET HAND WEAVER tumor, delirium, dementia, headaches, multiple sclerosis, seizures, TIA and strokes. Respiratory: Negative for: asthma, COPD, current cough, dyspnea, home oxygen, pneumonia within 6 weeks, tobacco use, URI < 2 weeks and obstructive sleep apnea. Cardiovascular: Positive for: hyperlipidemia (atorvastatin), hypertension (metoprolol) and murmur/valvular heart disease (mitral valve prolapse) Negative for: angina, arrhythmia, CAD, chest pain, CHF, DVT/PE, recent UT and open heart surgery. GI: Positive for: diverticulitis (Hx partial colectomy for diverticulitis perforation) Negative for: abdominal pain, colon cancer, dysphagia, GERD, heartburn, irritable bowel syndrome, inflammatory bowel disease, liver disease, pancreatitis, rectal cancer and vomiting. : Positive for: nephrolithiasis, renal failure and urgency. Patient's renal failure is chronic. Negative for: BPH, dysuria, frequent urination, hematuria, hesitancy, urinary incontinence and urinary tract infection. BEAMER HAND: Negative for abnormal vaginal bleeding, abnormal vaginal discharge. Endocrine: Negative for: diabetes mellitus, diabetic neuropathy, hyperthyroidism, hypothyroidism, hyperparathyroidism and steroid for chronic problem. Hematology: Positive for: bruises/bleeds easily and chronic anti-coagulation/platelet meds. Patient is on anti-coagulation/platelet medication(s): Aspirin. Negative for: anemia. Oncology: See HPI. Positive for: CA metastasis (hx uterine ca; now with Breast cancer; L hand - precancerous cell excision x3). Psych: Negative for: anxiety, bipolar disorder and depression. Musculoskeletal: Positive for: back pain and joint pain (BL hips). Skin: Negative for: lesions, itching and rash. PAST MEDICAL HISTORY Diagnosis Date Abnormal mammogram of left breast 08/22/2023 08/27/23 abnormal diagnostic left breast ultrasound. 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 Difficult intravenous access 04/03/2021 Diverticulitis of colon (without mention of hemorrhage)(562.11) Essential hypertension, benign on Toprol Female stress incontinence Migraine with aura, without mention of intractable migraine without mention of status migrainosus Nonspecific (abnormal) findings on radiological and other examination of gastrointestinal tract PAST SURGICAL HISTORY Procedure Laterality Date BREAST SURGERY HX biopies as teenager and early 30s, small lumpectomy BX BREAST W/DEVICE 1ST LESION STEREOTACTIC GUID Right 01/31/2017 Benign microcalcifications and a fibroadenoma BX OF BREAST; INCISIONAL 2023 COLON SURGERY HX 04/04/2021 LAPAROSCOPIC COLECTOMY SIGMOID COLON W/ COLORECTAL ANASTOMOSIS COLONOSCOPY FLX DX W/COLLJ SPEC WHEN PFRMD 12/20/2006 COLONOSCOPY FLX DX W/COLLJ SPEC WHEN PFRMD 12/20/2016 Colonoscopy COLONOSCOPY FLX DX W/COLLJ SPEC WHEN PFRMD 03/16/2021 PAST SURGICAL HISTORY OF breast biopsies x 2 SKIN BIOPSY HX TONSILLECTOMY PRIMARY/SECONDARY TOTAL ABDOMINAL HYSTERECT W/WO RMVL TUBE OVARY Hysterectomy, NEO uterine cancer US BREAST NEEDLE CORE BIOPSY LT Left 09/2023 FAMILY HISTORY Problem Relation Age of Onset Cancer Mother uterine Heart Mother Heart Father Hypertension Father Diabetes Father type II other (Multiple myloma) Father other (Fistula) Maternal Grandmother other (Hemochromatosis) Paternal Uncle Anesthesia Problems No Family History Social History Tobacco Use Smoking status: Never Smokeless tobacco: Never Vaping Use Vaping Use: Never used Substance Use Topics Alcohol use: Yes Comment: rare Drug use: No Prior to Admission medications as of 10/23/23 0851 Medication Sig Last Dose Taking acetaminophen 300 mg-caffeine 40 mg-butalbital 50 mg (FIORICET) per capsule Take 1 capsule by mouthevery 4 hours as needed for headache. Taking Yes aspirin, enteric coated (ASPIRIN, ENTERIC COATED) 81 mg EC tablet Take 81 mg by mouth once daily. Taking Yes acetaminophen (TYLENOL) 325 mg tablet Take 2 tablets by mouth every 4 hours as needed for pain. Taking Yes ZINC ORAL Take 50 mg by mouth once daily. Taking Yes calcium carbonate/vitamin D3 (CALCIUM 600 + D ORAL) Take 1,200 mg by mouth. Taking Yes atorvastatin 10 mg tablet Take 10 mg by mouth once daily. Taking Yes metoprolol succinate XL (TOPROL XL) 50 mg ORAL 24 hr tablet Take 1 tablet by mouth once daily. Taking Yes MULTIVITAMIN TABLET Take one(1) tablet daily. Taking Yes No medication comments found. ALLERGIES Allergen Reactions Tetracyclines Rash Objective PHYSICAL EXAM: General: alert and oriented and healthy appearance. Pertinent negatives noted - not distressed. Skin: normal color, no rash or lesions. HEENT: EOM intact and pupils equal round. Cardiovascular: regular rate and rhythm, normal S1 and S2, no rub, murmurs, or gallop. Respiratory: normal breath sounds, no wheezes or crackles. No chest wall deformity or tenderness. Abdomen: bowel sounds present and soft. Pertinent negatives noted - not tender. Extremities: no deformity, no edema or tenderness, no joint swelling or clubbing. Neurological: normal cognition and motor skills. Gait normal. No weakness or sensory deficit. PAIN ASSESSMENT: VITALS: BP 124/70 Pulse 59 Temp (Src) 97.4 (Temporal) Ht 5' 9 (1.75m) Wt 173 lb 1 oz (78.5kg) SpO2 99% LMP 04/07/2004 BMI 25.54 kg/(m^2). Diagnostic tests reviewed for today's visit: Lab Value Units Date High Low HB 15.7 g/dL 06/12/2023 15.5 11.5 HCT 45.8 % 06/12/2023 46.0 36.0 WBC 7.47 k/uL 06/12/2023 11.00 3.70 PLT 247 k/uL 06/12/2023 400 150 NA 139 mmol/L 06/12/2023 144 136 K 4.0 mmol/L 06/12/2023 5.1 3.7 GLUC 90 mg/dL 06/12/2023 99 74 BUN 19 mg/dL 06/12/2023 21 7 CREAT 1.04 mg/dL 06/12/2023 0.96 0.58 PTSEC No results within date range. INR No results within date range. APTT No results within date range. ALT 28 U/L 05/21/2023 38 7 AST 22 U/L 05/21/2023 35 13 TBILI 0.5 mg/dL 05/21/2023 1.3 0.2 TSH No results within date range. Lab Value Units Date High Low HCGQT No results within date range. UHCG No results within date range. HCG, BODY* No results within date range. Lab Value Units Date High Low ABORHD No results within date range. ABSCREEN No results within date range. No results found for: HBA1C No results found for this or any previous visit (from the past 8760 hour(s)). No results found for this or any previous visit (from the past 35883 hour(s)). Instructions Given to Patient: Instructions located in the after visit summary. Patient given verbal and written preop instructions and voices comprehension and compliance. SIGNATURE: Don Grijalva APRN.CNP PATIENT NAME: Radha Witt DATE: October 23, 2023 TIME: 9:26 AM PAGER[facility]CON[facility]CT [facility] History and physical note* Don Grijalva APRN.CNP - 10/23/2023 8:00 AM EDT Images from the original note were not included. [facility] HISTORY AND PHYSICAL EXAMINATION SERVICE DATE: 10/23/2023 SERVICE TIME: 8:48 AM PRIMARY CARE PHYSICIAN: Luna Cope MD Assessment Patient has the following medical conditions which may affect rebekah-operative course: Difficult intravenous access multiple sticks Recommend use of US machine for assistance PONV (postoperative nausea and vomiting) Patient endorses PONV Symptoms presented with premedication Stage 3a chronic kidney disease (HCC) CMP: BUN 19 06/12/2023 Creatinine 1.04 06/12/2023 CMP pending today History of uterine cancer hx uterine ca sp total hysterectomy History of partial colectomy Related to perforated diverticulitis in 2021 Denies active issues or concerns MVP (mitral valve prolapse) Last Echo scanned in chart 2016 Mild MVP Denies cardiac symptoms EKG pending today Follows with Wet End Supervisor annually at OSH Essential hypertension, benign Managed on metoprolol Denies cardiac symptoms EKG pending today Follows with Wet End Supervisor annually at OSH Hyperlipidemia Managed on Atorvastatin Reed Activity Status Index: METS: Take care of self; that is eating, dressing, bathing, using the toilet (2.75 METs) Walk a block or two on level ground (2.75 METs) Do moderate work around the house, such as vacuuming, sweeping floors, or carrying in groceries (3.50 METs) Climb a flight of stairs or walk up a hill (5.50 METs) DASI Score: 14.5 Patient denies any chest pain or undue shortness of breath with the above physical activity. Clinical Frailty Scale: 3. Well, with treated comorbid disease STOP-Bang Score: Has or is being treated for high blood pressure Patient over 50 years old Denies snoring loudly Denies feeling tired, fatigued, or sleepy during the daytime Has not been observed to stop breathing or choking/gasping during sleep BMI less than or equal to 35 kg/m^2 Does not have a large neck Non-male patient STOP-Bang Score: 2 [id number] Score: Hypertension history: Yes [id number] Score: ANESTHESIA FINDINGS: Intubation History: No history of difficult intubation. No abnormal airway history Significant Anesthesia Considerations: PONV; Denies use of vein finder or US machine for assistance- difficult with IV placement potential postop nausea/vomiting potential difficult IV/vein access Airway History: No history of difficult airway No abnormal airway history I - PHYSICAL EVALUATION AIRWAY Patient intubated: No. Tracheostomy tube not present Mallampati: IV. TM distance: >3 FB. Neck ROM: limited extension. Mouth opening: adequate. Short neck: no. Additional comments: Limited turning side to side . Thick neck: no Wilson present: no Lip Bite Test: II Microretrognathia/Micronagthia/Recessed Chin: No DENTAL Dental findings: teeth intact. Additional comments: crowns . II - ANESTHESIA PLAN Anesthetic plan additional comments: *PACC/TCI - anesthesia choice. Beta Mona Monitoring Plan Post Procedure Analgesic Plan Prepared for Surgery: optimally prepared for surgery, pending [see comment]. EKG, CMP, CBC ordered by me CONSULTS: Patient does not require consults for optimization at this time Planned Anesthetic: anesthesia choice The Following Tests/Procedures Have Been Initiated: Orders Placed This Encounter CMP Standing Status: Future Standing Expiration Date: 01/22/2024 Complete Blood Count and Differential Standing Status: Future Standing Expiration Date: 01/22/2024 acetaminophen 300 mg-caffeine 40 mg-butalbital 50 mg (FIORICET) per capsule Sig: Take 1 capsule by mouth every 4 hours as needed for headache. ECG COMPLETE Standing Status: Future Number of Occurrences: 1 Standing Expiration Date: 10/22/2024 REASON FOR VISIT: Radha Witt is a 73 year old female who is scheduled for Procedure(s): MASTECTOMY PARTIAL (Left) PLACEMENT OF BREAST LOCALIZATION DEVICE(S) PERCUTANEOUS; FIRST LESION, MAMMOGRAPHIC GUIDANCE (Left) INTRAOPERATIVE ID OF SENTINEL LYMPH NODE(S) INCL'D INJECTION OF NON-RAD DYE WHEN PERFORMED (Left) BIOPSY NODE SENTINEL AXILLARY (Left) at the request of Evita Meza DO for consultation. My final recommendation will be communicated back to the requesting physician by way of shared medical record or letter. 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 CHIEF COMPLAINT: Preop exam HPI: Radha Witt is a 73 year old female with PMHx htn, insomnia, hld, CKD, mitral valve prolapse, hx uterine ca. Presents to [facility] today for preop exam. Patient is scheduled for the above procedure on 11/12/23. Patient with L sided breast cancer confirmed on imaging. Awaiting biopsies and then plan for surgery. Denies fevers, chills, chest pain, and SOB. REVIEW OF SYSTEMS: General: Negative for: weight loss >10% of BW in last 6 months, malaise and fever. Neurological: Negative for: BASKET HAND WEAVER tumor, delirium, dementia, headaches, multiple sclerosis, seizures, TIA and strokes. Respiratory: Negative for: asthma, COPD, current cough, dyspnea, home oxygen, pneumonia within 6 weeks, tobacco use, URI < 2 weeks and obstructive sleep apnea. Cardiovascular: Positive for: hyperlipidemia (atorvastatin), hypertension (metoprolol) and murmur/valvular heart disease (mitral valve prolapse) Negative for: angina, arrhythmia, CAD, chest pain, CHF, DVT/PE, recent UT and open heart surgery. GI: Positive for: diverticulitis (Hx partial colectomy for diverticulitis perforation) Negative for: abdominal pain, colon cancer, dysphagia, GERD, heartburn, irritable bowel syndrome, inflammatory bowel disease, liver disease, pancreatitis, rectal cancer and vomiting. : Positive for: nephrolithiasis, renal failure and urgency. Patient's renal failure is chronic. Negative for: BPH, dysuria, frequent urination, hematuria, hesitancy, urinary incontinence and urinary tract infection. BEAMER HAND: Negative for abnormal vaginal bleeding, abnormal vaginal discharge. Endocrine: Negative for: diabetes mellitus, diabetic neuropathy, hyperthyroidism, hypothyroidism, hyperparathyroidism and steroid for chronic problem. Hematology: Positive for: bruises/bleeds easily and chronic anti-coagulation/platelet meds. Patient is on anti-coagulation/platelet medication(s): Aspirin. Negative for: anemia. Oncology: See HPI. Positive for: CA metastasis (hx uterine ca; now with Breast cancer; L hand - precancerous cell excision x3). Psych: Negative for: anxiety, bipolar disorder and depression. Musculoskeletal: Positive for: back pain and joint pain (BL hips). Skin: Negative for: lesions, itching and rash. PAST MEDICAL HISTORY Diagnosis Date Abnormal mammogram of left breast 08/22/2023 08/27/23 abnormal diagnostic left breast ultrasound. 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 Difficult intravenous access 04/03/2021 Diverticulitis of colon (without mention of hemorrhage)(562.11) Essential hypertension, benign on Toprol Female stress incontinence Migraine with aura, without mention of intractable migraine without mention of status migrainosus Nonspecific (abnormal) findings on radiological and other examination of gastrointestinal tract PAST SURGICAL HISTORY Procedure Laterality Date BREAST SURGERY HX biopies as teenager and early 30s, small lumpectomy BX BREAST W/DEVICE 1ST LESION STEREOTACTIC GUID Right 01/31/2017 Benign microcalcifications and a fibroadenoma BX OF BREAST; INCISIONAL 2023 COLON SURGERY HX 04/04/2021 LAPAROSCOPIC COLECTOMY SIGMOID COLON W/ COLORECTAL ANASTOMOSIS COLONOSCOPY FLX DX W/COLLJ SPEC WHEN PFRMD 12/20/2006 COLONOSCOPY FLX DX W/COLLJ SPEC WHEN PFRMD 12/20/2016 Colonoscopy COLONOSCOPY FLX DX W/COLLJ SPEC WHEN PFRMD 03/16/2021 PAST SURGICAL HISTORY OF breast biopsies x 2 SKIN BIOPSY HX TONSILLECTOMY PRIMARY/SECONDARY <AGE 14 TOTAL ABDOMINAL HYSTERECT W/WO RMVL TUBE OVARY Hysterectomy, NEO uterine cancer US BREAST NEEDLE CORE BIOPSY LT Left 09/2023 FAMILY HISTORY Problem Relation Age of Onset Cancer Mother uterine Heart Mother Heart Father Hypertension Father Diabetes Father type II other (Multiple myloma) Father other (Fistula) Maternal Grandmother other (Hemochromatosis) Paternal Uncle Anesthesia Problems No Family History Social History Tobacco Use Smoking status: Never Smokeless tobacco: Never Vaping Use Vaping Use: Never used Substance Use Topics Alcohol use: Yes Comment: rare Drug use: No Prior to Admission medications as of 10/23/23 0851 Medication Sig Last Dose Taking acetaminophen 300 mg-caffeine 40 mg-butalbital 50 mg (FIORICET) per capsule Take 1 capsule by mouthevery 4 hours as needed for headache. Taking Yes aspirin, enteric coated (ASPIRIN, ENTERIC COATED) 81 mg EC tablet Take 81 mg by mouth once daily. Taking Yes acetaminophen (TYLENOL) 325 mg tablet Take 2 tablets by mouth every 4 hours as needed for pain. Taking Yes ZINC ORAL Take 50 mg by mouth once daily. Taking Yes calcium carbonate/vitamin D3 (CALCIUM 600 + D ORAL) Take 1,200 mg by mouth. Taking Yes atorvastatin 10 mg tablet Take 10 mg by mouth once daily. Taking Yes metoprolol succinate XL (TOPROL XL) 50 mg ORAL 24 hr tablet Take 1 tablet by mouth once daily. Taking Yes MULTIVITAMIN TABLET Take one(1) tablet daily. Taking Yes No medication comments found. ALLERGIES Allergen Reactions Tetracyclines Rash Objective PHYSICAL EXAM: General: alert and oriented and healthy appearance. Pertinent negatives noted - not distressed. Skin: normal color, no rash or lesions. HEENT: EOM intact and pupils equal round. Cardiovascular: regular rate and rhythm, normal S1 and S2, no rub, murmurs, or gallop. Respiratory: normal breath sounds, no wheezes or crackles. No chest wall deformity or tenderness. Abdomen: bowel sounds present and soft. Pertinent negatives noted - not tender. Extremities: no deformity, no edema or tenderness, no joint swelling or clubbing. Neurological: normal cognition and motor skills. Gait normal. No weakness or sensory deficit. PAIN ASSESSMENT: VITALS: BP 124/70 Pulse 59 Temp (Src) 97.4 (Temporal) Ht 5' 9 (1.75m) Wt 173 lb 1 oz (78.5kg) SpO2 99% LMP 04/07/2004 BMI 25.54 kg/(m^2). Diagnostic tests reviewed for today's visit: Lab Value Units Date High Low HB 15.7 g/dL 06/12/2023 15.5 11.5 HCT 45.8 % 06/12/2023 46.0 36.0 WBC 7.47 k/uL 06/12/2023 11.00 3.70 PLT 247 k/uL 06/12/2023 400 150 NA 139 mmol/L 06/12/2023 144 136 K 4.0 mmol/L 06/12/2023 5.1 3.7 GLUC 90 mg/dL 06/12/2023 99 74 BUN 19 mg/dL 06/12/2023 21 7 CREAT 1.04 mg/dL 06/12/2023 0.96 0.58 PTSEC No results within date range. INR No results within date range. APTT No results within date range. ALT 28 U/L 05/21/2023 38 7 AST 22 U/L 05/21/2023 35 13 TBILI 0.5 mg/dL 05/21/2023 1.3 0.2 TSH No results within date range. Lab Value Units Date High Low HCGQT No results within date range. UHCG No results within date range. HCG, BODY* No results within date range. Lab Value Units Date High Low ABORHD No results within date range. ABSCREEN No results within date range. No results found for: HBA1C No results found for this or any previous visit (from the past 8760 hour(s)). No results found for this or any previous visit (from the past 30768 hour(s)). Instructions Given to Patient: Instructions located in the after visit summary. Patient given verbal and written preop instructions and voices comprehension and compliance. SIGNATURE: Don Grijalva APRN.CNP PATIENT NAME: Radha Witt DATE: October 23, 2023 TIME: 9:26 AM PAGER/CONTACT #: documented [facility] Telephone encounter Note * Telephone Encounter - Sue Esquivel MD - 10/22/2023 4:27 PM EDT Please note workup NOT complete - breast MRI dated 10/18/2023 reported suspicious findings in both breast, which MRI biopsy was recommended and any scheduled for 11/06. [facility] Work Phone: 1(595) 968-281407-23-2024 Miscellaneous Notes* Telephone Encounter - Sue Esquivel MD - 10/22/2023 4:27 PM EDT Please note workup NOT complete - breast MRI dated 10/18/2023 reported suspicious findings in both breast, which MRI biopsy was recommended and any scheduled for 11/06. * Telephone Encounter - Crystal Connolly LPN - 10/22/2023 3:28 PM EDT LOCALIZATION IMAGE REVIEW (Please do NOT submit until entire workup complete) (if > 3 reflectors to be placed in one breast, please review with radiologist) Radha Witt [id number] 1950 WORK- UP COMPLETE? Yes Order Placed Yes Left - Site 1 Location 8:00 Clip Shape clip Clip Migration No Pathology IDC Preferred Localization norma * If clip migrated, please review with radiologist This Form Has Been Completed By Crystal Connolly LPN On Behalf Of Dr. Sanchez documented in this encounterMer[facility]07-[facility]-2024 Telephone encounter Note * Telephone Encounter - Crystal Connolly LPN - 10/22/2023 3:28 PM EDT LOCALIZATION IMAGE REVIEW (Please do NOT submit until entire workup complete) (if > 3 reflectors to be placed in one breast, please review with radiologist) Radha Witt [id number] 1950 WORK- UP COMPLETE? Yes Order Placed Yes Left - Site 1 Location 8:00 Clip Shape clip Clip Migration No Pathology IDC Preferred Localization norma * If clip migrated, please review with radiologist This Form Has Been Completed By Crystal Connolly LPN On Behalf Of Dr. Sanchez [facility]07-22-2024 History of Present illness Narrative* Evita Sanchez DO - 10/21/2023 2:00 PM EDT Breast Surgery Telephone Follow up Note I have communicated my name and active licensure. The patient's identity and physical location wereverified at the time of this visit. The patient has been informed of the risks and benefits of -- and alternatives to -- treatment through a remote evaluation and consents to proceed with the discussion remotely. HPI Radha Witt is a 73 year old female with a LEFT breast 1.1 cm mass @ 8:00, 6 cm FN. Bx (bar clip) shows IDC. LN appear normal ER-DE-HER2- [id number] The phone conversation today is to review her MRI which was performed 10/18/23 BREAST MRI OF BOTH BREASTS: 10/18/2023 HISTORY: Newly diagnosed left IDC, evaluate disease extent FINDINGS: Bilateral background breast enhancement is mild. RIGHT BREAST: There is linear nonmass enhancement in the lower outer right breast measuring 1.4 cm (SE 33628 IM 122; SE 1021, IM 93). There is clumped nonmass enhancement in the lower central right breast measuring 1.5 x 1.0 cm (SE 80353 IM 115; SE 1021, IM 102). This demonstrates persistent kinetic enhancement. There is no internal mammary or axillary lymphadenopathy. LEFT BREAST: There is a 0.8 x 0.7 cm irregular enhancing mass in the posterior lower inner left breast consistent with known biopsy proven malignancy. This demonstrates washout kinetic enhancement. The biopsy clip is seen slightly lateral to the known malignancy. There is associated nonmass enhancement extending posteriorly towards the pectoralis muscle, with an aggregate measurement of 3.8 cm. There is mild effacement of the fat plane posteriorly with mild tenting of the pectoralis major, without definite enahncement of the muscle to suggest muscular involvement. Anterior and superior to the index malignancy, there is a 0.4 cm enhancing focus which demonstrates plateau kinetic enhancement (SE 59784, IM 105; SE 1021, IM 266). There is no internal mammary or axillary lymphadenopathy. MISCELLANEOUS: No suspicious extramammary findings are seen. IMPRESSION: SUSPICIOUS RIGHT BREAST: BIRADS 4 1. 1.4 cm linear nonmass enhancement in the lower outer right breast is suspicious. MR guided biopsy is recommended. 2. 1.5 cm clumped non mass enhancement in the lower central right breast may be related to background parenchymal enhancement. Management will be based on histopathology of the biopsied linear nonmass enhancement in the lower outer right breast. LEFT BREAST: BIRADS 4 1. 0.8 cm enhancing mass in the lower inner left breast consistent with known biopsy proven malignancy. There is associated nonmass enhancement extending posteriorly towards the pectoralis muscle, without definite muscular involvement, with an aggregate measurement of 3.8 cm. 2. 0.4 cm enhancing focus superior and anterior to the index malignancy is suspicious. MR guided biopsy is recommended. The breast imaging navigator will contact the patient to schedule an appointment for the MR guided biopsies. Assessment Radha Witt is a 73 year old female with a LEFT breast 1.1 cm mass @ 8:00, 6 cm FN. Bx (bar clip) shows IDC (MRI shows NME 3.8 cm in this area). LEFT breast 4mm mass superior and anterior to the index lesion (MRI bx recommended) LN appear normal ER-DE-HER2- [id number] RIGHT breast 1.4 cm enhancement lower outer breast (MRI bx recommended) RIGHT breast 1.5 cm enhancement central (management based on the other biopsy) PLAN Future Appointments Date Time Provider Department Center 10/23/2023 8:00 AM 9, Pacc Main MNPACC Mn A Bldg 10/23/2023 9:30 AM PROCEDURE MAMMO MAIN RADMN Mn A [facility] 10/24/2023 9:00 AM Glen Iglesias MD HEMAWS [facility] 10/24/2023 10:30 AM Benson Pierre MD RADTWS [facility] 10/28/2023 7:30 AM INJECTION NM [facility] STRO RNMSTR [facility] 11/07/2023 12:00 PM MRI MAIN A10 (LARGE BORE/1.5T) MRIA10 Mn A dg 11/08/2023 12:00 PM MRI MAIN A10 (LARGE BORE/1.5T) MRIA10 Mn A [facility] 11/11/2023 2:00 PM [facility] 02/19/2024 10:40 AM [facility] Discussed surgery will need to be post-poned until all biopsies complete. Patient understanding and will keep her norma appt and pre-op as scheduled. Will need to cancel surgery for 10/28/23 Total telephone conversation time was 8 minutes with time spent on counseling the patient and coordinating her care. This includes prep time to review her case and imaging as well as discussion with other physicians for this appointment today. Evita Sanchez DO, FACS Breast Surgeon [facility] documented in this encounterMer[facility]07-22-2024 NoteS[facility]07-[facility] History of Present illness Narrative* Ashley Painting RN - 10/18/2023 1:30 PM EDT Radiology Service Progress Note DATE OF SERVICE: October 18, 2023 TIME: 1:35 PM PATIENT WEIGHT: 172LBS PATIENT IDENTITY VERIFICATION COMPLETED USING TWO (2) STANDARD IDENTIFIERS: Name and Date of confirmed by patient verbally. FALL SCREENING: Has the patient had 2 falls in the last year or 1 fall with injury or currently using an Ambulatory Assistive Device (Walker, Cane, Wheelchair, Crutches, etc.)? No PATIENT GENDER DATA: Female. status: : No status: NO. ALLERGIES: Reviewed and unchanged CONTRAST ALLERGY: No EXAM: MRI - CONTRAST TYPE: GROUP II IV SITE: Ambulatory: A peripheral IV was started in the Right forearm with a Angio cath: 22 gauge. and A Saline lock was inserted per protocol. IV placed after unsuccessful attempt to left AC. IV SITE APPEARANCE: Clean,Dry and Intact SIGNATURE: Ashley Painting RN PATIENT NAME: Radha Witt DATE: October 18, 2023 TIME: 1:35 PM * Cecilia Malave, sap technical developer - 10/18/2023 1:30 PM EDT Radiology Service Progress Note PATIENT NAME: Radha Witt DATE OF SERVICE: October 18, 2023 TIME: 2:25 PM PATIENT IDENTITY VERIFICATION COMPLETED USING TWO (2) IDENTIFIERS: Name and Date of confirmedby patient verbally and Name and Date of confirmed by identification band. FALL SCREENING: Has the patient had 2 falls in the last year or 1 fall with injury or currently using an Ambulatory Assistive Device (Walker, Cane, Wheelchair, Crutches, etc.)? No PATIENT GENDER DATA: Female. status: : No status: NO. PATIENT RELEVANT IMPLANT DATA REVIEWED: Yes PATIENT PRESENTS WITH AN IMPLANTABLE OR ATTACHED CONSTRUCTION ESTIMATOR: No RADIOLOGY DEPARTMENT: MR; Exam(s) Completed: Chest: Breast PERIPHERAL IV DATA: Site assessment: Clean,Dry and Intact, Site disposition Discontinued SIGNED BY: Cecilia Malave sap technical developer October 18, 2023 2:25 PM documented in this encounterMer[facility]07-19-2024 NoteS[facility]07-[facility]-2024 NoteS[facility]07-16-2024 Telephone encounter Note* Telephone Encounter - Roberto Murillo - 10/15/2023 12:50 PM EDT Scheduled with patient [facility] Work Phone: 1(914) 358-387507-16-2024 Miscellaneous Notes* Telephone Encounter - Roberto Murillo - 10/15/2023 12:50 PM EDT Scheduled with patient * Telephone Encounter - Evita Pierce - 10/15/2023 12:28 PM EDT Spoke with patient's spouse and left message for patient to return call. When she calls, please schedule consult w. Dr. Iglesias on 10/24/23 at 9:00 AM and schedule a consult w/ Dr. Pierre at a time that works best for the patient. Evita Pierce * Telephone Encounter - Evita Pierce - 10/15/2023 8:54 AM EDT Per routing comment, patient needs seen by both Rad/Onc and Hem/Onc. Nurse edi manager is working on moving other stable patients to work this patient in with Dr. Iglesias sooner. documented in this encounterMer[facility] Hospital07-16-2024 Telephone encounter Note * Telephone Encounter - Evita Pierce - 10/15/2023 12:28 PM EDT Spoke with patient's spouse and left message for patient to return call. When she calls, please schedule consult w. Dr. Iglesias on 10/24/23 at 9:00 AM and schedule a consult w/ Dr. Pierre at a time that works best for the patient. Evita Pierce [facility]07-16-2024 Telephone encounter Note* Telephone Encounter - Evita Pierce - 10/15/2023 8:54 AM EDT Per routing comment, patient needs seen by both Rad/Onc and Hem/Onc. Nurse edi manager is working on moving other stable patients to work this patient in with Dr. Iglesias sooner. [facility]07-12-2024 NoteHNO ID: [id number] Author: EVITA SANCHEZ, DO Service: ? Author Type: Resident Type: Progress Notes Filed: 10/14/2023 11:29 Note Text: NEW BREAST CANCER - INITIAL SURGICAL VISIT SERVICE DATE: 10/11/2023 REFERRING PROVIDER: Luna Cope Consult requested for an opinion regarding the evaluation and treatment of a new breast issue. My final impression and recommendations will be communicated back to the requesting physician by way of the shared medical record or letter via US mail. SUBJECTIVE: REASON FOR TODAY'S VISIT: Breast Cancer Evaluation HISTORY of PRESENT ILLNESS: Radha Witt is a 73 year old White female who presents for an evaluation of a diagnosis of left breast cancer. Patient underwent routine screening mammogram on 08/22/23, which noted a focal asymmetry in the left breast. F/u diagnostic mammogram and limited left breast ultrasound (08/27/23) demonstrated a 0.6 x 0.7 x 0.6 cm oval mass with circumscribed margin in the 8 o'clock, middle depth (~ 6 cm FN). [facility] by means of ultrasound-guided core biopsy of Left breast with Dr. Norris on 09/24. 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 Patient is now presenting for surgical evaluation. PMHx s/f MV prolapse, HTN, arthritis, migraines, and uterine cancer s/p NEO. HISTORY OF BREAST PROCEDURE(S): YES - 1960s: R excisional biopsy -> benign - 1985: L excisional biopsy -> benign - 2017: R stereotatic biopsy -> benign microcalcifications and fibroadenoma PAST MEDICAL HISTORY: PAST MEDICAL HISTORY Diagnosis Date Abnormal mammogram of left breast 08/22/2023 08/27/23 abnormal diagnostic left breast ultrasound. 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 Difficult intravenous access 04/03/2021 Diverticulitis of colon (without mention of hemorrhage)(562.11) Essential hypertension, benign on Toprol Female stress incontinence Migraine with aura, without mention of intractable migraine without mention of status migrainosus Nonspecific (abnormal) findings on radiological and other examination of gastrointestinal tract PAST SURGICAL HISTORY: PAST SURGICAL HISTORY Procedure Laterality Date BREAST SURGERY HX BX BREAST W/DEVICE 1ST LESION STEREOTACTIC GUID Right 01/31/2017 Benign microcalcifications and a fibroadenoma BX OF BREAST; INCISIONAL 2023 COLON SURGERY HX 04/04/2021 LAPAROSCOPIC COLECTOMY SIGMOID COLON W/ COLORECTAL ANASTOMOSIS COLONOSCOPY FLX DX W/COLLJ SPEC WHEN PFRMD 12/20/2006 COLONOSCOPY FLX DX W/COLLJ SPEC WHEN PFRMD 12/20/2016 Colonoscopy COLONOSCOPY FLX DX W/COLLJ SPEC WHEN PFRMD 03/16/2021 PAST SURGICAL HISTORY OF breast biopsies x 2 SKIN BIOPSY HX TONSILLECTOMY HX TONSILLECTOMY PRIMARY/SECONDARY TOTAL ABDOMINAL HYSTERECT W/WO RMVL TUBE OVARY Hysterectomy, NEO uterine cancer US BREAST NEEDLE CORE BIOPSY LT Left 09/2023 VAGINAL HYSTERECTOMY OBSTETRIC RELATED 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 Social History Tobacco Use Smoking status: Never Smokeless tobacco: Never Vaping Use Vaping Use: Never used Substance Use Topics Alcohol use: Yes Comment: rare Drug use: No ACTIVE PROBLEM LIST Malignant Neoplasm of Lower-Inner Quadrant of Left Breast in Female, Estrogen Receptor Negative (Hcc) - 10/13/2023 At Risk for Lymphedema - 10/13/2023 Triple Negative Breast Carcinoma (Hcc) - 10/13/2023 Stage 3a Chronic Kidney Disease (Hcc) - 08/14/2023 History of Partial Colectomy - 07/11/2023 Difficult Intravenous Access - 04/03/2021 History of Uterine Cancer - 01/26/2021 Osteoarthritis of Spine With Radiculopathy, Lumbar Region - 10/01/2018 Mvp (Mitral Valve Prolapse) - 11/19/2017 Comment: [facility] Osteopenia of Multiple Sites - 05/28/2017 Hyperlipidemia - 07/24/2012 Calcific Shoulder Tendinitis - 07/24/2012 Diverticulosis - 03/22/2009 Comment: Diverticulitis-uncomplicated, treated outpatient setting 12/2006, 03/2009, Essential Hypertension, Benign - 08/09/2006 I (more content not included)...[id number] History of Present illness Narrative* Jayme Trujillo MD - 10/11/2023 4:15 PM EDT NEW BREAST CANCER - INITIAL SURGICAL VISIT SERVICE DATE: 10/11/2023 REFERRING PROVIDER: Luna Cope Consult requested for an opinion regarding the evaluation and treatment of a new breast issue. My final impression and recommendations will be communicated back to the requesting physician by way of the shared medical record or letter via US mail. SUBJECTIVE: REASON FOR TODAY'S VISIT: Breast Cancer Evaluation HISTORY of PRESENT ILLNESS: Radha Witt is a 73 year old White female who presents for an evaluation of a diagnosis of left breast cancer. PMHx s/f MV prolapse, HTN, arthritis, migraines, and uterine cancer s/p NEO. Patient underwent routine screening mammogram on 08/22/23, which noted a focal asymmetry in the leftbreast that was indeterminate. F/u diagnostic mammogram and limited left breast ultrasound (08/27/23) demonstrated a 0.6 x 0.7 x 0.6 cm oval mass with circumscribed margin in the 8 o'clock, middle depth (~ 6 cm FN). [facility] by means of ultrasound-guided core biopsy of Left breast with Dr. Norris on 09/24. The pathology report showed Infiltrating Ductal Carcinoma Grade 3, ER negative, DE negative, HER2 non- amplified. Patient is now presenting for surgical evaluation. Upon discussion with the patient in clinic, she has no complaints at this time and reports only feeling anxious regarding her new breast cancer diagnosis. She reports a history of multiple palpable breast masses throughout her life requiring excisional biopsy vs stereotactic biopsy - she was informed all of these were benign. She denies any palpable breast masses at this time and also denies any breast pain, overlying skin dimpling/tenting, or abnormal nipple discharge. She also denies any f/c,unintended weight loss, night sweats, or chest pain. Family history significant for paternal cousinwith breast cancer, diagnosed around age 62. HISTORY OF BREAST PROCEDURE(S): YES - 1960s: R excisional biopsy -> benign - 1985: L excisional biopsy -> benign - 2017: R stereotatic biopsy -> benign microcalcifications and fibroadenoma PAST MEDICAL HISTORY: PAST MEDICAL HISTORY Diagnosis Date Abnormal mammogram of left breast 08/22/2023 08/27/23 abnormal diagnostic left breast ultrasound. 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 Difficult intravenous access 04/03/2021 Diverticulitis of colon (without mention of hemorrhage)(562.11) Essential hypertension, benign on Toprol Female stress incontinence Migraine with aura, without mention of intractable migraine without mention of status migrainosus Nonspecific (abnormal) findings on radiological and other examination of gastrointestinal tract PAST SURGICAL HISTORY: PAST SURGICAL HISTORY Procedure Laterality Date BREAST SURGERY HX BX BREAST W/DEVICE 1ST LESION STEREOTACTIC GUID Right 01/31/2017 Benign microcalcifications and a fibroadenoma BX OF BREAST; INCISIONAL 2023 COLON SURGERY HX 04/04/2021 LAPAROSCOPIC COLECTOMY SIGMOID COLON W/ COLORECTAL ANASTOMOSIS COLONOSCOPY FLX DX W/COLLJ SPEC WHEN PFRMD 12/20/2006 COLONOSCOPY FLX DX W/COLLJ SPEC WHEN PFRMD 12/20/2016 Colonoscopy COLONOSCOPY FLX DX W/COLLJ SPEC WHEN PFRMD 03/16/2021 PAST SURGICAL HISTORY OF breast biopsies x 2 SKIN BIOPSY HX TONSILLECTOMY HX TONSILLECTOMY PRIMARY/SECONDARY <AGE 14 TOTAL ABDOMINAL HYSTERECT W/WO RMVL TUBE OVARY Hysterectomy, NEO uterine cancer US BREAST NEEDLE CORE BIOPSY LT Left 09/2023 VAGINAL HYSTERECTOMY OBSTETRIC RELATED 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 Social History Tobacco Use Smoking status: Never Smokeless tobacco: Never Vaping Use Vaping Use: Never used Substance Use Topics Alcohol use: Yes Comment: rare Drug use: No ACTIVE PROBLEM LIST Stage 3a Chronic Kidney Disease (Hcc) - 08/14/2023 History of Partial Colectomy - 07/11/2023 Difficult Intravenous Access - 04/03/2021 History of Uterine Cancer - 01/26/2021 Osteoarthritis of Spine With Radiculopathy, Lumbar Region - 10/01/2018 Mvp (Mitral Valve Prolapse) - 11/19/2017 Comment: [facility] Osteopenia of Multiple Sites - 05/28/2017 Hyperlipidemia - 07/24/2012 Calcific Shoulder Tendinitis - 07/24/2012 Diverticulosis - 03/22/2009 Comment: Diverticulitis-uncomplicated, treated outpatient setting 12/2006, 03/2009, Essential Hypertension, Benign - 08/09/2006 Insomnia, Unspecified - 08/09/2006 CURRENT MEDICATIONS: aspirin, enteric coated (ASPIRIN, ENTERIC COATED) 81 mg EC tablet Take 81 mg by mouth once daily. levocetirizine 5 mg tablet Take 5 mg by mouth once daily. acetaminophen (TYLENOL) 325 mg tablet Take 2 tablets by mouth every 4 hours as needed for pain. ZINC ORAL Take 50 mg by mouth once daily. calcium carbonate/vitamin D3 (CALCIUM 600 + D ORAL) Take 1,200 mg by mouth. atorvastatin 10 mg tablet Take 10 mg by mouth once daily. metoprolol succinate XL (TOPROL XL) 50 mg ORAL 24 hr tablet Take 1 tablet by mouth once daily. MULTIVITAMIN TABLET Take one(1) tablet daily. ALLERGIES Allergen Reactions Tetracyclines Rash REVIEW OF SYSTEMS: GENERAL: No weight loss, malaise or fevers HEENT: Negative for frequent or significant headaches, No changes in hearing or vision RESPIRATORY: Negative for cough, wheezing, or shortness of breath CARDIOVASCULAR: Negative for chest pain, leg swelling, or heart palpitations MUSCULOSKELETAL: Negative for joint pain or swelling, back pain or muscle pain, no upper extremity swelling or lymphedema ABD: no abdominal pain INTEGUMENTARY: Denies Scleroderma or Lupus. Denies chronic skin conditions. BREASTS:She denies any new palpable breast masses, skin changes, nipple discharge, nipple retraction, breast pain or masses in her axilla. All other reviewed and negative other than HPI. OBJECTIVE: PHYSICAL EXAM: 25.62 kg/m2 GENERAL:well-nourished, healthy, alert and oriented x 3, calm SKIN:warm, dry, skin color, texture, turgor normal HEAD/EYES:normocephalic, atraumatic, and anicteric NECK: supple, symmetrical, no thyromegaly RESPIRATORY: Respirations regular & non-labored ABDOMEN: soft, nondistended. No hepatomegaly., No masses MUSCULOSKELETAL: No observed limitations in range of motion of upper extremities. Patient ambulatesindependently BREASTS: The Patient was examined in the upright and supine positions. Breasts are symmetric. Thereare no significant fibrocystic changes. Patient's cup size is DD. The patient was examined in the upright and supine position. RIGHT breast soft, no dominant masses, nipple everted, no discharge, no skin changes RIGHT axilla no palpable axillary lymphadenopathy LEFT breast soft, no dominant masses, nipple everted, no discharge, no skin changes LEFT axilla no palpable axillary lymphadenopathy Regional Lymph Nodes: There is no concerning supraclavicular, infraclavicular or cervical lymphadenopathy. IMAGING TO DATE: SCREENING Mammogram (08/22/23): The focal asymmetry in the left breast is indeterminate. Additional views are recommended. DIAGNOSTIC Mammogram (08/27/23): The 1.1 cm asymmetry in the left breast is indeterminate. An ultrasound is recommended. L Breast Ultrasound (08/27/23): There is a 0.6 cm x 0.6 cm x 0.7 cm oval mass with a circumscribed margin in the left breast at 8 o'clock middle depth. This oval mass is hypoechoic with internal echoes. This correlates with mammography findings. Directed ultrasound of the left axilla was negative. PATHOLOGY RESULTS: Left breast, core biopsy: - Invasive ductal carcinoma, provisional [place] grade III, spanning at least 7 mm in this material. Component Ref Range & Units ER status Negative (less than 1%) ER % staining % <1 Estrogen Receptor (Staining Intensity) Not Applicable Estrogen Receptor Internal Control Present and Stained as Expected Estrogen Receptor External Control Present and Stained as Expected DE status Negative (less than 1%) DE % staining % <1 Progesterone Receptor (Staining Intensity) Not Applicable Progesterone Receptor Internal Control Present and Stained as Expected Progesterone Receptor External Control Present and Stained as Expected HER2 IHC Status Negative for HER2 Overexpression HER2 IHC Score 0 Tumor Type Primary Invasive Breast Carcinoma Breast Tumor Grade Grade 3 [facility] Referring Laboratory Case Number Block ID [id number] Fixative Formalin, 10% Neutral Buffered Cold Ischemia Time minutes <1 Hour Total Fixation Time hours >6 and <72 Hours Latest ASCP/CAP guidelines for fixation met Yes Was Specimen Decalcified No GENETIC TESTING: Ordered SOZO 10/11/2023 SOZO Review Extremity measured Left Arm Pacemaker/ Defibrillator/ Possible No Dominant Side Left Bilateral/ Unilateral Measurement Unilateral Patient Position Standing LDEX Result Green LDEX Score -7.3 Provider notified Yes Another SOZO Measurement needed No Assessment ASSESSMENT: Radha Witt is a 73 year old female with a PMHx s/f MV prolapse, HTN, arthritis, migraines, and uterine cancer s/p NEO who was recently diagnosed with invasive ductal carcinoma, ER- DE- HER-, who is presenting for surgical evaluation. PLAN: DIAGNOSIS: (C50.312, Z17.1) Malignant neoplasm of lower-inner quadrant of left breast in female, estrogen receptor negative (HCC) (primary encounter diagnosis) I have examined Ms. Witt and reviewed the physical findings, imaging and pathology reports with her. A discussion was held with the patient regarding the local-regional, as well as systemic treatment of her Breast Cancer. We discussed role of breast conservation surgery or mastectomy, indicationsand risks of sentinel lymph node biopsy, possibility of axillary lymph node dissection, breast reconstruction, and role of systemic and radiation therapy. Ms. Witt needs further work-up at this time; diagnostic work up incomplete. The patient had a basseline L-Dex SOZO measurement which I reviewed today, as noted above in the health record. We reviewed that bioimpedance spectroscopy helps identify the early onset of lymphedemain an arm or leg before patients experience noticeable swelling. Research has shown that 92% of patients with early detection of lymphedema using L-Dex combined with breast rehab intervention do not progress to chronic lymphedema. Whenever possible, patients are tested for baseline L-Dex score before cancer treatment begins and then are reassessed during regular follow-up visits using the SOZO device. If the patient's L-Dex score increases above normal levels, that is a sign that lymphedema is developing and a referral is made to physical therapy for further evaluation and early compression treatment. Lymphedema assessment with the SOZO L-Dex score is recommended to be done at baseline prior to surgery and at follow-up survivorship visits to screen for lymphedema per NCCN guidelines of breast cancer survivorship. REFERRAL(S) for breast cancer treatment planning considerations: Genetic counseling for triple negative breast cancer, Medical oncology consultation, and Radiation oncology consultation - MRI to be completed at [facility], patient will call office with MRI date Future Appointments Date Time Provider Department Center 02/19/2024 10:40 AM Luna Cope MD [facility] All questions were answered and the patient had no further concerns at this time. Radha Witt was given our contact information if she has any further questions or concerns. Evita Sanchez DO, FACS Breast Surgeon [facility] cc: MD Luna Way * Evita Sanchez DO - 10/11/2023 2:52 PM EDT NEW BREAST CANCER - INITIAL SURGICAL VISIT SERVICE DATE: 10/11/2023 REFERRING PROVIDER: Luna Cope Consult requested for an opinion regarding the evaluation and treatment of a new breast issue. My final impression and recommendations will be communicated back to the requesting physician by way of the shared medical record or letter via US mail. SUBJECTIVE: REASON FOR TODAY'S VISIT: Breast Cancer Evaluation HISTORY of PRESENT ILLNESS: Radha Witt is a 73 year old White female who presents for an evaluation of a diagnosis of LEFT breast cancer. PMHx s/f MV prolapse, HTN, migraines, arthritis, and uterine cancer s/p NEO. Patient underwent screening mammogram on 08/22/23 that demonstrated focal asymmetry in the left best that was indeterminate. F/u diagnostic mammogram revealed 0.6 x 0.6 x 0.7 mass with circumscribedmargin in the L breast at 8 o'clock middle depth, ultrasound of L axilla was negative. She underwent ultrasound-guided biopsy with Dr. Norris in office (09/24), titanium clip was placed at time of biopsy. Diagnosis was made at [facility] by means of ultrasound-guided core biopsy of Left breast. 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 She is now presenting for surgical evaluation. In clinic today, patient has no complaints at this time. She endorses prior excisional biopsies formasses she felt in her breast, but these all returned benign. She also denies any breast pain, overlying skin dimpling/tenting, nipple discharges, or axillary lymphadenopathy. She also denies any f/c, unintended weight loss, night sweats, or chest pain. No family history of breast cancer. HISTORY OF BREAST PROCEDURE(S): Yes: - R excisional biopsy -> benign 1985 excisional biopsy -> benign 2016 biopsy -> benign microcalcifications and fibroadenoma PAST MEDICAL HISTORY: PAST MEDICAL HISTORY Diagnosis Date Abnormal mammogram of left breast 08/22/2023 08/27/23 abnormal diagnostic left breast ultrasound. 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 Difficult intravenous access 04/03/2021 Diverticulitis of colon (without mention of hemorrhage)(562.11) Essential hypertension, benign on Toprol Female stress incontinence Migraine with aura, without mention of intractable migraine without mention of status migrainosus Nonspecific (abnormal) findings on radiological and other examination of gastrointestinal tract PAST SURGICAL HISTORY: PAST SURGICAL HISTORY Procedure Laterality Date BREAST SURGERY HX BX BREAST W/DEVICE 1ST LESION STEREOTACTIC GUID Right 01/31/2017 Benign microcalcifications and a fibroadenoma BX OF BREAST; INCISIONAL 2023 COLON SURGERY HX 04/04/2021 LAPAROSCOPIC COLECTOMY SIGMOID COLON W/ COLORECTAL ANASTOMOSIS COLONOSCOPY FLX DX W/COLLJ SPEC WHEN PFRMD 12/20/2006 COLONOSCOPY FLX DX W/COLLJ SPEC WHEN PFRMD 12/20/2016 Colonoscopy COLONOSCOPY FLX DX W/COLLJ SPEC WHEN PFRMD 03/16/2021 PAST SURGICAL HISTORY OF breast biopsies x 2 SKIN BIOPSY HX TONSILLECTOMY HX TONSILLECTOMY PRIMARY/SECONDARY <AGE 14 TOTAL ABDOMINAL HYSTERECT W/WO RMVL TUBE OVARY Hysterectomy, NEO uterine cancer US BREAST NEEDLE CORE BIOPSY LT Left 09/2023 VAGINAL HYSTERECTOMY OBSTETRIC RELATED 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 [employer] Employment status: retired Social History Tobacco Use Smoking status: Never Smokeless tobacco: Never Vaping Use Vaping Use: Never used Substance Use Topics Alcohol use: Yes Comment: rare Drug use: No ACTIVE PROBLEM LIST Stage 3a Chronic Kidney Disease (Hcc) - 08/14/2023 History of Partial Colectomy - 07/11/2023 Difficult Intravenous Access - 04/03/2021 History of Uterine Cancer - 01/26/2021 Osteoarthritis of Spine With Radiculopathy, Lumbar Region - 10/01/2018 Mvp (Mitral Valve Prolapse) - 11/19/2017 Comment: [facility] Osteopenia of Multiple Sites - 05/28/2017 Hyperlipidemia - 07/24/2012 Calcific Shoulder Tendinitis - 07/24/2012 Diverticulosis - 03/22/2009 Comment: Diverticulitis-uncomplicated, treated outpatient setting 12/2006, 03/2009, Essential Hypertension, Benign - 08/09/2006 Insomnia, Unspecified - 08/09/2006 CURRENT MEDICATIONS: aspirin, enteric coated (ASPIRIN, ENTERIC COATED) 81 mg EC tablet Take 81 mg by mouth once daily. levocetirizine 5 mg tablet Take 5 mg by mouth once daily. acetaminophen (TYLENOL) 325 mg tablet Take 2 tablets by mouth every 4 hours as needed for pain. ZINC ORAL Take 50 mg by mouth once daily. calcium carbonate/vitamin D3 (CALCIUM 600 + D ORAL) Take 1,200 mg by mouth. atorvastatin 10 mg tablet Take 10 mg by mouth once daily. metoprolol succinate XL (TOPROL XL) 50 mg ORAL 24 hr tablet Take 1 tablet by mouth once daily. MULTIVITAMIN TABLET Take one(1) tablet daily. ALLERGIES Allergen Reactions Tetracyclines Rash REVIEW OF SYSTEMS: GENERAL: No weight loss, malaise or fevers HEENT: Negative for frequent or significant headaches, No changes in hearing or vision RESPIRATORY: Negative for cough, wheezing, or shortness of breath CARDIOVASCULAR: Negative for chest pain, leg swelling, or heart palpitations MUSCULOSKELETAL: Negative for joint pain or swelling, back pain or muscle pain, no upper extremity swelling or lymphedema ABD: no abdominal pain INTEGUMENTARY: Denies Scleroderma or Lupus. Denies chronic skin conditions. BREASTS:She denies any new palpable breast masses, skin changes, nipple discharge, nipple retraction, breast pain or masses in her axilla. All other reviewed and negative other than HPI. OBJECTIVE: PHYSICAL EXAM: 25.62 kg/m2 GENERAL:well-nourished, healthy, alert and oriented x 3, calm SKIN:warm, dry, skin color, texture, turgor normal HEAD/EYES:normocephalic, atraumatic, and anicteric NECK: supple, symmetrical, no thyromegaly RESPIRATORY: Respirations regular & non-labored ABDOMEN: soft, nondistended. No hepatomegaly., No masses MUSCULOSKELETAL: No observed limitations in range of motion of upper extremities. Patient ambulatesindependently BREASTS: The Patient was examined in the upright and supine positions. Breasts are symmetric. Thereare no significant fibrocystic changes. Patient's cup size is DD The patient was examined in the upright and supine position. RIGHT breast soft, no dominant masses, nipple everted, no discharge, no skin changes, periareolar scar @ 5:00 RIGHT axilla no palpable axillary lymphadenopathy LEFT breast soft, no dominant masses, nipple everted, no discharge, no skin changes, vertical scar @ 12:00 LEFT axilla no palpable axillary lymphadenopathy Regional Lymph Nodes: There is no concerning supraclavicular, infraclavicular or cervical lymphadenopathy. IMAGING TO DATE: SCREENING MAMMOGRAM (08/22/23): The focal asymmetry in the left breast is indeterminate. Additional views are recommended. DIAGNOSTIC MAMMOGRAM (08/27/23): The 1.1 cm asymmetry in the left breast is indeterminate. An ultrasound is recommended. LIMITED ULTRASOUND OF L BREAST (08/27/23): There is a 0.6 cm x 0.6 cm x 0.7 cm oval mass with a circumscribed margin in the left breast at 8 o'clock middle depth. This oval mass is hypoechoic with internal echoes. This correlates with mammography findings. Directed ultrasound of the left axilla was negative. PATHOLOGY RESULTS: Left breast, core biopsy: - Invasive ductal carcinoma, provisional [place] grade III, spanning at least 7 mm in this material. Component Ref Range & Units ER status Negative (less than 1%) ER % staining % <1 Estrogen Receptor (Staining Intensity) Not Applicable Estrogen Receptor Internal Control Present and Stained as Expected Estrogen Receptor External Control Present and Stained as Expected DE status Negative (less than 1%) DE % staining % <1 Progesterone Receptor (Staining Intensity) Not Applicable Progesterone Receptor Internal Control Present and Stained as Expected Progesterone Receptor External Control Present and Stained as Expected HER2 IHC Status Negative for HER2 Overexpression HER2 IHC Score 0 Tumor Type Primary Invasive Breast Carcinoma Breast Tumor Grade Grade 3 [facility] Referring Laboratory Case Number Block ID A1 Fixative Formalin, 10% Neutral Buffered Cold Ischemia Time minutes <1 Hour Total Fixation Time hours >6 and <72 Hours Latest ASCP/CAP guidelines for fixation met Yes Was Specimen Decalcified No Interpretation Comment and Reference Range Reference Range for Hormone Receptors: Staining for DE of greater than or equal to 1% of the tumor cells is considered positive. Staining for ER of 1-10% of the tumor cells is considered low positive. Staining for ER of greater than 10% of the tumor cells is considered positive. Staining for ER or DE of less than 1% is considered negative. GENETIC TESTING: TNBC - indicated, consult placed SOZO 10/11/2023 SOZO Review Extremity measured Left Arm Pacemaker/ Defibrillator/ Possible No Dominant Side Left Bilateral/ Unilateral Measurement Unilateral Patient Position Standing LDEX Result Green LDEX Score -7.3 Provider notified Yes Another SOZO Measurement needed No Assessment ASSESSMENT: Radha Witt is a 73 year old female with a LEFT breast 7 mm mass @ 8:00, 6 cm FN. Bx bar clip, shows TNBC LN appear normal ER-DE-HER2- [id number] PLAN: DIAGNOSIS: (C50.312, Z17.1) Malignant neoplasm of lower-inner quadrant of left breast in female, estrogen receptor negative (HCC) (primary encounter diagnosis) (C50.919, Z17.1) 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) I have examined Ms. Witt and reviewed the physical findings, imaging and pathology reports with her. A discussion was held with the patient regarding the local-regional, as well as systemic treatment of her Breast Cancer. We discussed role of breast conservation surgery or mastectomy, indicationsand risks of sentinel lymph node biopsy, possibility of axillary lymph node dissection, breast reconstruction, and role of systemic and radiation therapy. Ms. Witt is interested in breast conserving surgery. Order for MRI placed - patient wants to have MRI on [facility]. She will let us know when that is scheduled Discussed due to small size, surgery 1st followed by XRT and systemic therapy would be the proposedplan . Will place consults to med onc and rad on in [place] The patient had a basseline L-Dex SOZO measurement which I reviewed today, as noted above in the health record. We reviewed that bioimpedance spectroscopy helps identify the early onset of lymphedemain an arm or leg before patients experience noticeable swelling. Research has shown that 92% of patients with early detection of lymphedema using L-Dex combined with breast rehab intervention do not progress to chronic lymphedema. Whenever possible, patients are tested for baseline L-Dex score before cancer treatment begins and then are reassessed during regular follow-up visits using the SOZO device. If the patient's L-Dex score increases above normal levels, that is a sign that lymphedema is developing and a referral is made to physical therapy for further evaluation and early compression treatment. Lymphedema assessment with the SOZO L-Dex score is recommended to be done at baseline prior to surgery and at follow-up survivorship visits to screen for lymphedema per NCCN guidelines of breast cancer survivorship. 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 Radha Witt was given our contact information if she has any further questions or concerns. Evita Sanchez DO, [facility] Breast Surgeon [facility] cc: MD Dr. Justine Way [facility] Nurse Note* Crystal Connolly LPN - 10/11/2023 3:04 PM EDT Patient was referred by: Did patient bring outside records to appt today? : No Last mammogram on: 08/22/2023 bilateral Results: see report Patient current bra size: 36DD Coping: It is normal to feel some distress when you have cancer. On a scale of 0-10 please indicatethe number that best describes your level of distress on the average over the past week. 07/09 Referred to social work: Yes Is the patient active on 20x200 Yes Electronically Signed By: Crystal Connolly LPN In Department: GENERAL SURGERY REVIEW OF PATIENT HISTORY: OB History T0 L0 SAB0 IAB0 Ectopic0 Multiple0 Live Births0 FAMILY HISTORY Problem Relation Age of Onset Heart Father Hypertension Father Diabetes Father type II Cancer Mother uterine Heart Mother other (Fistula) Maternal Grandmother other (Hemochromatosis) Paternal Uncle Anesthesia Problems No Family History PAST MEDICAL HISTORY Diagnosis Date Abnormal mammogram of left breast 08/22/2023 08/27/23 abnormal diagnostic left breast ultrasound. 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 Difficult intravenous access 04/03/2021 Diverticulitis of colon (without mention of hemorrhage)(562.11) Essential hypertension, benign on Toprol Female stress incontinence Migraine with aura, without mention of intractable migraine without mention of status migrainosus Nonspecific (abnormal) findings on radiological and other examination of gastrointestinal tract PAST SURGICAL HISTORY Procedure Laterality Date BREAST SURGERY HX BX BREAST W/DEVICE 1ST LESION STEREOTACTIC GUID Right 01/31/2017 Benign microcalcifications and a fibroadenoma BX OF BREAST; INCISIONAL 2023 COLON SURGERY HX 04/04/2021 LAPAROSCOPIC COLECTOMY SIGMOID COLON W/ COLORECTAL ANASTOMOSIS COLONOSCOPY FLX DX W/COLLJ SPEC WHEN PFRMD 12/20/2006 COLONOSCOPY FLX DX W/COLLJ SPEC WHEN PFRMD 12/20/2016 Colonoscopy COLONOSCOPY FLX DX W/COLLJ SPEC WHEN PFRMD 03/16/2021 PAST SURGICAL HISTORY OF breast biopsies x 2 SKIN BIOPSY HX TONSILLECTOMY HX TONSILLECTOMY PRIMARY/SECONDARY TOTAL ABDOMINAL HYSTERECT W/WO RMVL TUBE OVARY Hysterectomy, NEO uterine cancer VAGINAL HYSTERECTOMY Social History Tobacco Use Smoking status: Never Smokeless tobacco: Never Vaping Use Vaping Use: Never used Substance Use Topics Alcohol use: Yes Comment: rare Drug use: No [facility]07-12-2024 Nurse Note* Crystal Connolly LPN - 10/11/2023 3:04 PM EDT Patient was referred by: Did patient bring outside records to appt today? : No Last mammogram on: 08/22/2023 bilateral Results: see report Patient current bra size: 36DD Coping: It is normal to feel some distress when you have cancer. On a scale of 0-10 please indicatethe number that best describes your level of distress on the average over the past week. 07/09 Referred to social work: Yes Is the patient active on 20x200 Yes Electronically Signed By: Crystal Connolly LPN In Department: GENERAL SURGERY REVIEW OF PATIENT HISTORY: OB History T0 L0 SAB0 IAB0 Ectopic0 Multiple0 Live Births0 FAMILY HISTORY Problem Relation Age of Onset Heart Father Hypertension Father Diabetes Father type II Cancer Mother uterine Heart Mother other (Fistula) Maternal Grandmother other (Hemochromatosis) Paternal Uncle Anesthesia Problems No Family History PAST MEDICAL HISTORY Diagnosis Date Abnormal mammogram of left breast 08/22/2023 08/27/23 abnormal diagnostic left breast ultrasound. 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 Difficult intravenous access 04/03/2021 Diverticulitis of colon (without mention of hemorrhage)(562.11) Essential hypertension, benign on Toprol Female stress incontinence Migraine with aura, without mention of intractable migraine without mention of status migrainosus Nonspecific (abnormal) findings on radiological and other examination of gastrointestinal tract PAST SURGICAL HISTORY Procedure Laterality Date BREAST SURGERY HX BX BREAST W/DEVICE 1ST LESION STEREOTACTIC GUID Right 01/31/2017 Benign microcalcifications and a fibroadenoma BX OF BREAST; INCISIONAL 2023 COLON SURGERY HX 04/04/2021 LAPAROSCOPIC COLECTOMY SIGMOID COLON W/ COLORECTAL ANASTOMOSIS COLONOSCOPY FLX DX W/COLLJ SPEC WHEN PFRMD 12/20/2006 COLONOSCOPY FLX DX W/COLLJ SPEC WHEN PFRMD 12/20/2016 Colonoscopy COLONOSCOPY FLX DX W/COLLJ SPEC WHEN PFRMD 03/16/2021 PAST SURGICAL HISTORY OF breast biopsies x 2 SKIN BIOPSY HX TONSILLECTOMY HX TONSILLECTOMY PRIMARY/SECONDARY <AGE 14 TOTAL ABDOMINAL HYSTERECT W/WO RMVL TUBE OVARY Hysterectomy, NEO uterine cancer VAGINAL HYSTERECTOMY Social History Tobacco Use Smoking status: Never Smokeless tobacco: Never Vaping Use Vaping Use: Never used Substance Use Topics Alcohol use: Yes Comment: rare Drug use: No documented [facility] NoteHNO ID: [id number] Author: EVITA SANCHEZ, DO Service: ? Author Type: Physician Type: Progress Notes Filed: 10/13/2023 21:34 Note Text: NEW BREAST CANCER - INITIAL SURGICAL VISIT SERVICE DATE: 10/11/2023 REFERRING PROVIDER: Luna Posey requested for an opinion regarding the evaluation and treatment of a new breast issue. My final impression and recommendations will be communicated back to the requesting physician by way of the shared medical record or letter via US mail. SUBJECTIVE: REASON FOR TODAY'S VISIT: Breast Cancer Evaluation HISTORY of PRESENT ILLNESS: Radha Witt is a 73 year old White female who presents for an evaluation of a diagnosis of LEFT breast cancer. PMHx s/f MV prolapse, HTN, migraines, arthritis, and uterine cancer s/p NEO. Patient underwent screening mammogram on 08/22/23 that demonstrated focal asymmetry in the left best that was indeterminate. F/u diagnostic mammogram revealed 0.6 x 0.6 x 0.7 mass with circumscribed margin in the L breast at 8 o'clock middle depth, ultrasound of L axilla was negative. She underwent ultrasound-guided biopsy with Dr. Norris in office (09/24), titanium clip was placed at time of biopsy. [facility] means of [facility]-guided core biopsy of Left breast. 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 She is now presenting for surgical evaluation. In clinic today, patient has no complaints at this time. She endorses prior excisional biopsies for masses she felt in her breast, but these all returned benign. She also denies any breast pain, overlying skin dimpling/tenting, nipple discharges, or axillary lymphadenopathy. She also denies any f/c, unintended weight loss, night sweats, or chest pain. No family history of breast cancer. HISTORY OF BREAST PROCEDURE(S): Yes: - R excisional biopsy -> benign 1985 excisional biopsy -> benign 2016 - R biopsy -> benign microcalcifications and fibroadenoma PAST MEDICAL HISTORY: PAST MEDICAL HISTORY Diagnosis Date Abnormal mammogram of left breast 08/22/2023 08/27/23 abnormal diagnostic left breast ultrasound. 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 Difficult intravenous access 04/03/2021 Diverticulitis of colon (without mention of hemorrhage)(562.11) Essential hypertension, benign on Toprol Female stress incontinence Migraine with aura, without mention of intractable migraine without mention of status migrainosus Nonspecific (abnormal) findings on radiological and other examination of gastrointestinal tract PAST SURGICAL HISTORY: PAST SURGICAL HISTORY Procedure Laterality Date BREAST SURGERY HX BX BREAST W/DEVICE 1ST LESION STEREOTACTIC GUID Right 01/31/2017 Benign microcalcifications and a fibroadenoma BX OF BREAST; INCISIONAL 2023 COLON SURGERY HX 04/04/2021 LAPAROSCOPIC COLECTOMY SIGMOID COLON W/ COLORECTAL ANASTOMOSIS COLONOSCOPY FLX DX W/COLLJ SPEC WHEN PFRMD 12/20/2006 COLONOSCOPY FLX DX W/COLLJ SPEC WHEN PFRMD 12/20/2016 Colonoscopy COLONOSCOPY FLX DX W/COLLJ SPEC WHEN PFRMD 03/16/2021 PAST SURGICAL HISTORY OF breast biopsies x 2 SKIN BIOPSY HX TONSILLECTOMY HX TONSILLECTOMY PRIMARY/SECONDARY TOTAL ABDOMINAL HYSTERECT W/WO RMVL TUBE OVARY Hysterectomy, NEO uterine cancer US BREAST NEEDLE CORE BIOPSY LT Left 09/2023 VAGINAL HYSTERECTOMY OBSTETRIC RELATED 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 [employer] Employment status: retired Social History Tobacco Use Smoking status: Never Smokeless tobacco: Never Vaping Use Vaping Use: Never used Substance Use Topics Alcohol use: Yes Comment: rare Drug use: No ACTIVE PROBLEM LIST Stage 3a Chronic Kidney Disease (Hcc) - 08/14/2023 History of Partial Colectomy - 07/11/2023 Difficult Intravenous Access - 04/03/2021 History of Uterine Cancer - 01/26/2021 Osteoarthritis of Spine With Radiculopathy, Lumbar Region - 10/01/2018 Mvp (Mitral Valve Prolapse) - 11/19/2017 Comment: Sees [facility] Osteopenia of Multiple Sites - 05/28/2017 Hyp (more content not included)...[id number] History of Present illness Narrative* Layla Norris MD - 10/09/2023 2:33 PM EDT Subjective: Patient is status post an ultrasound-guided left needle core biopsy on 09/25/2023. Pathology report came back as invasive ductal breast cancer. ER receptors negative DE receptors negative HER2/pauline 0 Biopsy site is at the 8 o'clock +6 Objective:Last menstrual period 04/07/2004. Biopsy site is clean without signs of infection Assessment:Malignant neoplasm of lower-inner quadrant of left breast in female, estrogen receptor negative (hcc) (primary encounter diagnosis) Plan: Will be referring her up to the breast surgeons for further treatment. documented in this encounterMer[facility]07-[facility] History of Present illness Narrative* Crystal Fuentes RN - 10/09/2023 9:50 AM EDT [facility] Telephonic Outreach Provider Action/FYI Call placed to the patient. Denies any medical needs at this time. Patient encouraged to call PCP with any medical needs or concerns and the patient agrees to do so. Contacted for: Routine Telephonic Outreach Contact made with patient: Yes Patient identified by name and date of . Discussed care with patient Are you experiencing any new or worsening symptoms you need to talk about today? No Disease Specific Do you check your blood pressure at home? No Do you have new or worsening shortness of breath with activity? No Based on assessment technician, the following disposition is advised: No symptoms or symptoms present, not severe. Routed to: No Action Needed FERNANDA Education Provided this Outreach: No . Crystal Fuentes RN October 09, 2023 12:50 PM documented in this encounterMer[facility]07-[facility]-2024 Telephone encounter Note * Telephone Encounter - Arabella John RN - 10/08/2023 2:24 PM EDT Returned Patients call, schedule for an appointment with DR. Norris tomorrow 10/08 @ 2:15. Pt agreeable to this time. Arabella John RN [facility]07-[facility] Miscellaneous Notes* Telephone Encounter - Arabella John RN - 10/08/2023 2:24 PM EDT Returned Patients call, schedule for an appointment with DR. Norris tomorrow 10/08 @ 2:15. Pt agreeable to this time. Arabella John RN * Telephone Encounter - Kailyn Pereira RN - 10/08/2023 11:56 AM EDT Patient calling in about concerns regarding her breast biopsy results from 09/30/23. FINAL DIAGNOSIS Left breast, core biopsy: - Invasive ductal carcinoma, provisional Shahrzad grade III, spanning at least 7 mm in this material. Patient states her follow up appointment is not until 10/20 and asking if she needs to be seen sooner or if she needs to be referred to someone else? Please review and advise Kailyn Pereira RN documented in this encounterMer[facility]07-[facility]24 Telephone encounter Note * Telephone Encounter - Kailyn Pereira RN - 10/08/2023 11:56 AM EDT Patient calling in about concerns regarding her breast biopsy results from 09/30/23. FINAL DIAGNOSIS Left breast, core biopsy: - Invasive ductal carcinoma, provisional Shahrzad grade III, spanning at least 7 mm in this material. Patient states her follow up appointment is not until 10/20 and asking if she needs to be seen sooner or if she needs to be referred to someone else? Please review and advise Kailyn Pereira RN [facility] NoteIMPRESSION: POST PROCEDURE MAMMOGRAM FOR MARKER PLACEMENT Jude rao/oanh:09/25/2023 14:06:33 Bundler(s): Anahi Earl [facility] Mammogram BI-RADS: Post-procedure mammogram for marker placement Multiple national specialty organizations have released breast cancer screening guidelines for women at average risk for developing breast cancer - guidelines that are based on both evidence and opinion, yet differ on when to start and how often to screen for breast cancer. With representation from Breast Imaging, Internal Medicine, Women's Health, Family Medicine, and Medical/Surgical Oncology, the [facility] has carefully reviewed the data and reached the following consensus: 1) All women should engage in shared decision-making with their providers to decide when to start and how often to screen; 2) All women should have the opportunity to start screening mammography at age 40; 3) For women ages 45-55, we recommend annual screening mammograms; 4) For women ages 55 and over, we support both the transition from an annual to a biennial interval if this aligns more with patient's values and preferences, or continuation with annual screening; 5) All women should discuss with their providers when to stop screening mammograms. Integrity Director: Oanh Transcribe Date/Time: Sep 25 2023 1:35P Dictated by: JUDE IQBAL MD This examination was interpreted and the report reviewed and electronically signed by: JUDE IQBAL MD on Sep 25 2023 2:06PM [facility] OF [id number] History of Present illness Narrative* Anahi Earl RT(R) - 09/25/2023 1:30 PM EDT Radiology Service Progress Note PATIENT NAME: Radha Witt DATE OF SERVICE: September 25, 2023 TIME: 1:31 PM PATIENT IDENTITY VERIFICATION COMPLETED USING TWO (2) IDENTIFIERS: Name and Date of confirmedby patient verbally. FALL SCREENING: Has the patient had 2 falls in the last year or 1 fall with injury or currently using an Ambulatory Assistive Device (Walker, Cane, Wheelchair, Crutches, etc.)? No PATIENT GENDER DATA: Female. status: : No status: NO. PATIENT RELEVANT IMPLANT DATA REVIEWED: Not Applicable PATIENT PRESENTS WITH AN IMPLANTABLE OR ATTACHED CONSTRUCTION ESTIMATOR: No RADIOLOGY DEPARTMENT: Mammography PERIPHERAL IV DATA: Not applicable SIGNED BY: RT Solomon(R) September 25, 2023 1:31 PM documented in this encounterMercy [facility] Hospital06-26-2024 History of Present illness Narrative* Layla Norris MD - 09/25/2023 1:03 PM EDT Preoperative diagnosis: Abnormal mammogram to left breast Postoperative diagnosis: The same Procedure: Ultrasound-guided handheld mammotome breast biopsy to left breast Surgeon: Justine Procedure: Ultrasound of the left breast at the 8 o'clock position revealed the lesion in question.I prepped the breast with Betadine. I injected 1% lidocaine plain. Under ultrasound guidance I injected local posteriorly to the lesion. A skin audra was made. Under ultrasound guidance I directed thehand-held mammotome needle posteriorly to the lesion. Numerous biopsies of this were obtained nearly ablating the entire lesion. Under ultrasound guidance a small titanium clip was placed. Sterile dressings were applied. Patient tolerated the procedure well. Standard mammogram was ordered. documented in this encounterMer[facility]06-26-2024 Instructions* Patient Instructions* Etta Jones LPN - 09/25/2023 12:50 PM EDT Instructions After OFFICE BASED LEFT BREAST BIOPSY Please do not take aspirin or other blood thinners for the next few days. After the procedure, Steri-Strips and a dressing will be placed on your small incision. The dressing may be removed in two to three days after the procedure. The Steri-Strips should be left in place until they fall off. If you have bleeding from the biopsy site, hold pressure with a clean gauze. If the bleeding continues, contact our office immediately. I recommend taking Advil or Tylenol for the discomfort. You should wear a comfortable but somewhat tight fitting bra. If you have significant bruising, an ice pack may improve your discomfort. Please make an appointment to return to our office in 7-10 days. If you have any questions or concerns please feel free to call our office at [phone] and ask to be transferred to General Surgery. Thank you for choosing [facility] - General Surgery. documented in this encounterMercy [facility] Hospital06-26-2024 Nurse Note* Etta Jones LPN - 09/25/2023 12:44 PM EDT UNIVERSAL PROTOCOL / SAFETY CHECKLIST Procedure to be Performed: Ultrasound Guided Hand Held Mammotome Biopsy left breast Sign In: A Moment of CARE was completed. Personnel directly involved with the procedure wore the appropriate PPE (Personal Protective Equipment). Special equipment: mammotome elite biopsy system, mammotome biopsy identifier Patient/Surrogate Stated/Verified: PATIENT VERIFIED(optional for EMERGENT procedures): Patient name, Date of , Relevant allergies, and The intended procedure Time Out Communication: Intended patient and procedure match the source documents. Consent documented and matches the intended procedure. Relevant labs, photos, and/or imaging studies have been reviewed. Correct side/site marked and visible. Medications required for procedure verified. No fire risk assessment and interventions applicable. Implant(s) inserted: Correct implant(s) confirmed including size and side. and Expiration date(s) reviewed. Sign Out: SIGN OUT (optional for EMERGENT procedures): All specimen containers correctly labeled. No instruments, equipment or retained foreign bodies applicable. Post-procedure follow-up management communicated and Plan of Care Visit completed when applicable. Etta Jones LPN [facility] Nurse Note* Etta Jones LPN - 09/25/2023 12:44 PM EDT UNIVERSAL PROTOCOL / SAFETY CHECKLIST Procedure to be Performed: Ultrasound Guided Hand Held Mammotome Biopsy left breast Sign In: A Moment of CARE was completed. Personnel directly involved with the procedure wore the appropriate PPE (Personal Protective Equipment). Special equipment: mammotome elite biopsy system, mammotome biopsy identifier Patient/Surrogate Stated/Verified: PATIENT VERIFIED(optional for EMERGENT procedures): Patient name, Date of , Relevant allergies, and The intended procedure Time Out Communication: Intended patient and procedure match the source documents. Consent documented and matches the intended procedure. Relevant labs, photos, and/or imaging studies have been reviewed. Correct side/site marked and visible. Medications required for procedure verified. No fire risk assessment and interventions applicable. Implant(s) inserted: Correct implant(s) confirmed including size and side. and Expiration date(s) reviewed. Sign Out: SIGN OUT (optional for EMERGENT procedures): All specimen containers correctly labeled. No instruments, equipment or retained foreign bodies applicable. Post-procedure follow-up management communicated and Plan of Care Visit completed when applicable. Etta Jones LPN documented in this encounterMercy [facility] Hospital06-24-2024 Nurse Note* [place] Paz RN - 09/23/2023 1:34 PM EDT REVIEW OF SYSTEMS: General: The patient denies fatigue, denies weight loss, denies weight gain, denies feeling hot, and denies feelings of cold. Eyes: The patient denies glaucoma, denies eye injury/surgery, wears glasses or contacts. Ear/Nose/Throat: The patient NOTES allergies, denies hayfever, denies ear infections, and denies bloody noses. Cardiovascular: The patient denies chest pain, denies heart disease, NOTES high blood pressure,denies cardiac stent, denies prior heart attack, denies irregular heart beat, NOTES high cholesterol, denies poor circulation, denies heart failure, other cardiac issues, denies claudication, denies cold feet, denies peripheral arterial stent. Respiratory: The patient denies tuberculosis, denies pneumonia, denies frequent cough, denies pulmonary embolism, denies shortness of breath, and denies coughing up blood. Gastrointestinal: The patient denies difficulty swallowing, denies acid reflux, denies ulcers, denies vomiting, denies jaundice/hepatitis, denies gallbladder problems, denies black or tarry stools, NOTES hemorrhoids, denies bleeding from rectum, NOTES diverticulitis, denies constipation, denies diarrhea, denies loss of stool control, and denies hernias. Kidney/Bladder: The patient denies kidney stones, denies urine infections, and denies bloody urine. Skin: The patient denies a history of skin cancer, denies bleeding/changing moles, and denies a history of skin rash. Neurologic: The patient denies a history of epilepsy/convulsions, NOTES headaches, denies head/spinal injuries, and denies stroke/TIA. Psychiatric: The patient denies psychiatric medications, denies depression, and denies voices, denies substance abuse. Endocrine: The patient denies thyroid disorders, denies diabetes, and denies hormonal problems. Hematologic: The patient denies a history of bruising, denies bleeding, and denies anemia, denies blood clots. Infections: The patient denies a history of measles and mumps, denies rheumatic fever, and denies sexually transmitted diseases. Musculoskeletal: The patient denies back pain/injury, denies back problems, denies sciatica, deniesknee/foot trouble, NOTES arthritis, or denies gout. When was patient's last Mammogram screening? 08/22/2023 Last Colonoscopy: 07/11/2023 [place] Paz RN [facility] Nurse Note* Jamaica Paz RN - 09/23/2023 1:34 PM EDT REVIEW OF SYSTEMS: General: The patient denies fatigue, denies weight loss, denies weight gain, denies feeling hot, and denies feelings of cold. Eyes: The patient denies glaucoma, denies eye injury/surgery, wears glasses or contacts. Ear/Nose/Throat: The patient NOTES allergies, denies hayfever, denies ear infections, and denies bloody noses. Cardiovascular: The patient denies chest pain, denies heart disease, NOTES high blood pressure,denies cardiac stent, denies prior heart attack, denies irregular heart beat, NOTES high cholesterol, denies poor circulation, denies heart failure, other cardiac issues, denies claudication, denies cold feet, denies peripheral arterial stent. Respiratory: The patient denies tuberculosis, denies pneumonia, denies frequent cough, denies pulmonary embolism, denies shortness of breath, and denies coughing up blood. Gastrointestinal: The patient denies difficulty swallowing, denies acid reflux, denies ulcers, denies vomiting, denies jaundice/hepatitis, denies gallbladder problems, denies black or tarry stools, NOTES hemorrhoids, denies bleeding from rectum, NOTES diverticulitis, denies constipation, denies diarrhea, denies loss of stool control, and denies hernias. Kidney/Bladder: The patient denies kidney stones, denies urine infections, and denies bloody urine. Skin: The patient denies a history of skin cancer, denies bleeding/changing moles, and denies a history of skin rash. Neurologic: The patient denies a history of epilepsy/convulsions, NOTES headaches, denies head/spinal injuries, and denies stroke/TIA. Psychiatric: The patient denies psychiatric medications, denies depression, and denies voices, denies substance abuse. Endocrine: The patient denies thyroid disorders, denies diabetes, and denies hormonal problems. Hematologic: The patient denies a history of bruising, denies bleeding, and denies anemia, denies blood clots. Infections: The patient denies a history of measles and mumps, denies rheumatic fever, and denies sexually transmitted diseases. Musculoskeletal: The patient denies back pain/injury, denies back problems, denies sciatica, deniesknee/foot trouble, NOTES arthritis, or denies gout. When was patient's last Mammogram screening? 08/22/2023 Last Colonoscopy: 07/11/2023 [place] Paz RN documented in this encounterMercy [facility] Hospital06-24-[facility]24 History of Present illness Narrative* Layla Norris MD - 09/23/2023 1:04 PM EDT HISTORY AND PHYSICAL - BREAST COMPLAINT Radha Witt 1950 REFERRING PHYSICIAN: Luna Cope MD CHIEF COMPLAINT: Abnormal mammogram (primary encounter diagnosis) HPI: The patient is a 73 year old female with a complaint of an abnormal mammogram. The patient hada mammogram with ultrasound on 08/27/23 which demonstrated : IMPRESSION: SUSPICIOUS FINDING - BIOPSY SHOULD BE CONSIDERED The 0.6 cm x 0.6 cm x 0.7 cm oval mass in the left breast is suspicious of malignancy. An ultrasound guided biopsy is recommended. Negative left axillary ultrasound. The patient denies a history of breast masses. She does not perform a self breast exam routinely. She notes no skin changes. She denies nipple discharge. She notes no axillary masses. She notes no family history of breast problems. She notes no significant breast trauma or breast difficulties in the past. The patient is being seen by me today at the request of Dr. Luna Cope MD for my opinion and advice regarding Abnormal mammogram (primary encounter diagnosis). PAST MEDICAL HISTORY Diagnosis Date Abnormal mammogram of left breast 08/22/2023 08/27/23 abnormal diagnostic left breast ultrasound. 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 Difficult intravenous access 04/03/2021 Diverticulitis of colon (without mention of hemorrhage)(562.11) Essential hypertension, benign on Toprol Female stress incontinence Migraine with aura, without mention of intractable migraine without mention of status migrainosus Nonspecific (abnormal) findings on radiological and other examination of gastrointestinal tract PAST SURGICAL HISTORY Procedure Laterality Date BREAST SURGERY HX BX BREAST W/DEVICE 1ST LESION STEREOTACTIC GUID Right 01/31/2017 Benign microcalcifications and a fibroadenoma COLON SURGERY HX 04/04/2021 LAPAROSCOPIC COLECTOMY SIGMOID COLON W/ COLORECTAL ANASTOMOSIS COLONOSCOPY FLX DX W/COLLJ SPEC WHEN PFRMD 12/20/2006 COLONOSCOPY FLX DX W/COLLJ SPEC WHEN PFRMD 12/20/2016 Colonoscopy COLONOSCOPY FLX DX W/COLLJ SPEC WHEN PFRMD 03/16/2021 PAST SURGICAL HISTORY OF breast biopsies x 2 SKIN BIOPSY HX TONSILLECTOMY HX TONSILLECTOMY PRIMARY/SECONDARY <AGE 14 TOTAL ABDOMINAL HYSTERECT W/WO RMVL TUBE OVARY Hysterectomy, NEO uterine cancer VAGINAL HYSTERECTOMY Current Outpatient Medications Medication Sig Dispense Refill acetaminophen 325 mg-caffeine 40 mg-butalbital 50 mg (FIORICET) per tablet Take 1 tablet by mouth every 6 hours as needed (headache) for up to 30 days. 20 tablet 0 aspirin, enteric coated (ASPIRIN, ENTERIC COATED) 81 mg EC tablet Take 81 mg by mouth once daily. acetaminophen (TYLENOL) 325 mg tablet Take 2 tablets by mouth every 4 hours as needed for pain. ZINC ORAL Take 50 mg by mouth once daily. calcium carbonate/vitamin D3 (CALCIUM 600 + D ORAL) Take 1,200 mg by mouth. atorvastatin 10 mg tablet Take 10 mg by mouth once daily. metoprolol succinate XL (TOPROL XL) 50 mg ORAL 24 hr tablet Take 1 tablet by mouth once daily. 30 tablet 12 MULTIVITAMIN TABLET Take one(1) tablet daily. 0 levocetirizine 5 mg tablet Take 5 mg by mouth once daily. No current facility-administered medications for this visit. ALLERGIES: Tetracyclines PERSONAL HISTORY: Social History Tobacco Use Smoking status: Never Smokeless tobacco: Never Vaping Use Vaping Use: Never used Substance Use Topics Alcohol use: Yes Comment: rare Drug use: No FAMILY HISTORY: FAMILY HISTORY Problem Relation Age of Onset Heart Father Hypertension Father Diabetes Father type II Cancer Mother uterine Heart Mother other (Fistula) Maternal Grandmother other (Hemochromatosis) Paternal Uncle Anesthesia Problems No Family History REVIEW OF SYMPTOMS: negative except as noted above PHYSICAL EXAMINATION: General: The patient is 73 year old female, well nourished, well hydrated in no acute distress. Thepatient is oriented to time, place, and person. VITALS: Blood pressure 118/70, pulse 94, temperature 36.1 C (97 F), height 175.3 cm (5' 9), xnwygt02.6 kg (175 lb 6.4 oz), last menstrual period 04/07/2004, SpO2 100%. Body mass index is 25.9 kg/m . HEENT: Normal cephalic, ataumatic, pupils are equally round, sclera are anicteric, mucous membranesare moist, oropharynx is clear. Neck has no masses, asymmetry or lymphadenopathy. Thyroid is unremarkable. Respiratory: Clear to auscultation and percussion. Normal respiratory excursion and pattern. Cardiac: Examination is regular rate and rhythm. Abdominal exam: Soft, nontender, with no palpable masses. No hepatosplenomegaly. No palpable hernias. Rectal exam: exam deferred Extremities: no clubbing, cyanosis or edema. No adenopathy. Breast: Visual inspection reveals no retractions, nipple inversion, or skin changes. Palpation of the right breast reveals no dominant or suspicious masses, but multiple benign-feeling nodules. Palpation of the left breast reveals no dominant or suspicious masses, but multiple benign-feeling nodules. Axillary exam demonstrates no suspicious masses in either the left or right axilla. There is no nipple discharge expressed from either the left or right breast. LABORATORY VALUES: As Noted RADIOLOGIC STUDIES: As Noted Assessment IMPRESSION: Abnormal mammogram (primary encounter diagnosis) PLAN: I plan to perform a ultrasound guided mammotome core biopsy of the left breast. The planned surgical procedure was discussed extensively with the patient. The risks, benefits, anticipated outcomes and possible complications were mentioned. My staff has also explained the procedure in understandable terms and the patient was given the option to take printed material concerning the planned procedure. The patient had the opportunity to ask questions concerning the planned procedure. The patient freely consents to the planned procedure. Diagnoses: (R92.8) Abnormal mammogram (primary encounter diagnosis) My findings have been communicated to Dr. Luna Cope MD via shared medical record. This note will be forwarded to Dr. Luna Cope MD. Return to Clinic: The patient is instructed to follow-up with me 1 week post operatively. Layla Norris III, MD documented in this encounter[facility]06[facility] History of Present illness Narrative* Crystal Fuentes RN - 09/16/2023 10:27 AM EDT [facility] Telephonic Outreach Provider Action/FYI Call placed to the patient. Denies any medical needs at this time. Patient encouraged to call PCP with any medical needs or concerns and the patient agrees to do so. Patient is going to Urologist tomorrow (not clinic). UTI-diagnosed UTI-symptoms gone. Follow-up appt from Uti Contacted for: Routine Telephonic Outreach Contact made with patient: Yes Patient identified by name and date of . Discussed care with patient Are you experiencing any new or worsening symptoms you need to talk about today? No Disease Specific Do you check your blood pressure at home? Yes, Enter readings: 111/65 Do you have new or worsening shortness of breath with activity? No Based on assessment technician, the following disposition is advised: No symptoms or symptoms present, not severe. Routed to: No Action Needed FERNANDA Education Provided this Outreach: No . Crystal Fuentes RN September 16, 2023 12:50 PM documented in this encounterMer[facility]06-07-[facility]24 Telephone encounter Note * Telephone Encounter - Crystal Hernandes - 09/06/2023 4:44 PM EDT Patient has been identified by name and date of : Yes, Provider Date 09-06-23 Time 4:45 Patient phones for refill(s): Disp Refills Start End acetaminophen 325 mg-caffeine 40 mg-butalbital 50 mg (FIORICET) per tablet 20 tablet 0 04/30/2023 05/30/2023 Sig: Take 1 tablet by mouth every 6 hours as needed (headache) for up to 30 days. Sent to pharmacy as: acetaminophen 325 mg-caffeine 40 mg-butalbital 50 mg (FIORICET) per tablet Class: Normal Route: ORAL Date of last office visit in primary care: 08/28/2023 Date of next office visit in primary care: 02/19/2024 [facility] in [place] Please advise. Thank you. Crystal Khan. [facility] Work Phone: [phone] Miscellaneous Notes* Telephone Encounter - Crystal Hernandes - 09/06/2023 4:44 PM EDT Patient has been identified by name and date of : Yes, Provider Date 09-06-23 Time 4:45 Patient phones for refill(s): Disp Refills Start End acetaminophen 325 mg-caffeine 40 mg-butalbital 50 mg (FIORICET) per tablet 20 tablet 0 04/30/2023 05/30/2023 Sig: Take 1 tablet by mouth every 6 hours as needed (headache) for up to 30 days. Sent to pharmacy as: acetaminophen 325 mg-caffeine 40 mg-butalbital 50 mg (FIORICET) per tablet Class: Normal Route: ORAL Date of last office visit in primary care: 08/28/2023 Date of next office visit in primary care: 02/19/2024 [facility] in [place] Please advise. Thank you. Crystal Khan. documented in this encounterMercy [facility]06-04-2024 Telephone encounter Note * Telephone Encounter - Roberto Dela Cruz MA - 09/03/2023 11:22 AM EDT Patient given results and verbalized understanding of instructions given. Roberto Dela Cruz MA [facility]06-[facility] Miscellaneous Notes* Telephone Encounter - Roberto Dela Cruz MA - 09/03/2023 11:22 AM EDT Patient given results and verbalized understanding of instructions given. Roberto Dela Cruz MA * Telephone Encounter - Danielle Brewster APRN.CNP - 09/03/2023 10:43 AM EDT Please inform patient that her urine culture returned with mixed microbes, which can occur as a result of contamination when collecting. If she is feeling improvement with sx she can complete. She will need to follow up with PCP as she had blood in her urine. Please advise. documented in this encounterMercy [facility]06-04-2024 Telephone encounter Note * Telephone Encounter - Danielle Brewster APRN.CNP - 09/03/2023 10:43 AM EDT Please inform patient that her urine culture returned with mixed microbes, which can occur as a result of contamination when collecting. If she is feeling improvement with sx she can complete. She will need to follow up with PCP as she had blood in her urine. Please advise. [facility] Work Phone: 1(149) 455-654906-03-2024 History of Present illness Narrative* Shant Morfin APRN.CNP - 09/02/2023 10:34 AM EDT Subjective HPI Nontoxic-appearing female presents urgent care chief complaint possible UTI. Duration of symptoms 1day. Associated symptoms urinary frequency urgency some dysuria. Has had a UTI in the past this feels similar. No OTC medication use today. Did have some bladder tenderness this morning that has since improved. Denies any fevers vomiting abdominal pain flank pain vaginal discharge itching. Past medical history prescription medications allergies reviewed. 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 Difficult intravenous access 04/03/2021 Diverticulitis of colon (without mention of hemorrhage)(562.11) Essential hypertension, benign on Toprol Female stress incontinence Migraine with aura, without mention of intractable migraine without mention of status migrainosus Nonspecific (abnormal) findings on radiological and other examination of gastrointestinal tract PAST SURGICAL HISTORY Procedure Laterality Date BREAST SURGERY HX BX BREAST W/DEVICE 1ST LESION STEREOTACTIC GUID Right 01/31/2017 Benign microcalcifications and a fibroadenoma COLON SURGERY HX 04/04/2021 LAPAROSCOPIC COLECTOMY SIGMOID COLON W/ COLORECTAL ANASTOMOSIS COLONOSCOPY FLX DX W/COLLJ SPEC WHEN PFRMD 12/20/2006 COLONOSCOPY FLX DX W/COLLJ SPEC WHEN PFRMD 12/20/2016 Colonoscopy COLONOSCOPY FLX DX W/COLLJ SPEC WHEN PFRMD 03/16/2021 PAST SURGICAL HISTORY OF breast biopsies x 2 SKIN BIOPSY HX TONSILLECTOMY HX TONSILLECTOMY PRIMARY/SECONDARY <AGE 14 TOTAL ABDOMINAL HYSTERECT W/WO RMVL TUBE OVARY Hysterectomy, NEO uterine cancer VAGINAL HYSTERECTOMY ALLERGIES Tetracyclines MEDICATIONS aspirin, enteric coated (ASPIRIN, ENTERIC COATED) 81 mg EC tablet Take 81 mg by mouth once daily. levocetirizine 5 mg tablet Take 5 mg by mouth once daily. acetaminophen (TYLENOL) 325 mg tablet Take 2 tablets by mouth every 4 hours as needed for pain. ZINC ORAL Take 50 mg by mouth once daily. calcium carbonate/vitamin D3 (CALCIUM 600 + D ORAL) Take 1,200 mg by mouth. atorvastatin 10 mg tablet Take 10 mg by mouth once daily. metoprolol succinate XL (TOPROL XL) 50 mg ORAL 24 hr tablet Take 1 tablet by mouth once daily. MULTIVITAMIN TABLET Take one(1) tablet daily. FAMILY HISTORY Problem Relation Age of Onset Heart Father Hypertension Father Diabetes Father type II Cancer Mother uterine Heart Mother other (Fistula) Maternal Grandmother other (Hemochromatosis) Paternal Uncle Anesthesia Problems No Family History Social History Tobacco Use Smoking status: Never Smokeless tobacco: Never Vaping Use Vaping Use: Never used Substance Use Topics Alcohol use: Yes Comment: rare Drug use: No BP 134/78 Pulse 79 Temp 36.4 C (97.6 F) Resp 16 Wt 80.2 kg (176 lb 12.9 oz) LMP 04/07/2004 SpO2 97% BMI 26.11 kg/m Review of Systems Constitutional: Negative for chills, fever and malaise/fatigue. HENT: Negative for congestion, ear discharge, ear pain, sinus pain and sore throat. Eyes: Negative for blurred vision, pain, discharge and redness. Respiratory: Negative for cough, hemoptysis, sputum production, shortness of breath, wheezing and stridor. Cardiovascular: Negative for chest pain. Gastrointestinal: Negative for abdominal pain, diarrhea, nausea and vomiting. Genitourinary: Positive for dysuria, frequency and urgency. Negative for flank pain and hematuria. Musculoskeletal: Negative for myalgias. Skin: Negative for itching and rash. Neurological: Negative for dizziness and headaches. Objective Physical Exam Vitals and nursing note reviewed. Constitutional: General: She is not in acute distress. Appearance: She is not toxic-appearing or diaphoretic. HENT: Head: Normocephalic. Jaw: No trismus. Right Ear: Hearing normal. No decreased hearing noted. No drainage, swelling or tenderness. Tympanic membrane is not perforated, erythematous or bulging. Left Ear: Hearing normal. No decreased hearing noted. No drainage, swelling or tenderness. Tympanicmembrane is not perforated, erythematous or bulging. Nose: Nose normal. Mouth/Throat: Pharynx: Uvula midline. No uvula swelling. Tonsils: No tonsillar abscesses. Eyes: Pupils: Pupils are equal, round, and reactive to light. Cardiovascular: Rate and Rhythm: Normal rate and regular rhythm. Pulses: Normal pulses. Pulmonary: Effort: Pulmonary effort is normal. No respiratory distress. Breath sounds: Normal breath sounds. Chest: Chest wall: No tenderness. Abdominal: General: Bowel sounds are normal. There is no distension. Palpations: Abdomen is soft. Abdomen is not rigid. Tenderness: There is no abdominal tenderness. There is no right CVA tenderness, left CVA tenderness, guarding or rebound. Negative signs include Villalobos's sign and McBurney's sign. Musculoskeletal: General: No tenderness. Cervical back: Normal range of motion. Lymphadenopathy: Head: Right side of head: No submental, submandibular, tonsillar, preauricular, posterior auricular or occipital adenopathy. Left side of head: No submental, submandibular, tonsillar, preauricular, posterior auricular or occipital adenopathy. Cervical: Right cervical: No superficial or posterior cervical adenopathy. Left cervical: No superficial or posterior cervical adenopathy. Skin: General: Skin is warm and dry. Findings: No rash. Neurological: General: No focal deficit present. Mental Status: She is alert and oriented to person, place, and time. ASSESSMENT/PLAN: 1. Urinary frequency - ICD9: 788.41, ICD10: R35.0 - UA DIP, URINE (POC) - URINE CULTURE Leukocytes blood protein noted on urine dip. Treat as acute cystitis. Placed on Keflex. Follow-up with completion antibiotics for repeat urine dip due to blood. Patient was educated on supportive therapies. Patient will follow up with primary care provider as needed. Patient was instructed to immediately proceed to emergency room for any new, worsening, or symptoms lasting longer than anticipated. The patient's clinical presentation is otherwise unremarkable at this time. Based on exam and clinical finding, the patient is stable for discharge. Plan of care was discussed with patient. Patient verbalizes understanding and agrees to plan of care. This note was generated using [employer] software. It may contain errors in wording, punctuation, or spelling. Shant Mrofin APRN.SEAMUS documented in this encounterMer[facility]05-29-2024 History of Present illness Narrative* Luna Cope MD - 08/28/2023 8:56 AM EDT Patient presents with: ER F/U HPI: Patient presents today for office visit for ER FOLLOW UP: Reason for visit: Nosebleed only from left nostril. Which facility: [facility] ER Date of visit: 08/17/23 Diagnosis: Epistaxis Testing done: None Treatment given: None Current symptoms: None. Nosebleed lasted about 10-15 minutes and stopped prior to getting to ER. She was just worried because she states she's never had a nosebleed before. No other bleeding issues. No trauma to noses or other issues. No allergy issues. Discussed using saline nose drops prn. Mentions some right hip pain that flared up a couple days ago. Hx of Arthritis. Having some mild discomfort on her right lower side of back and having trouble standing for long periods of time. Having some positional pain. Refers to muscle pain. Intermittent. More in the back. No radiation of pain. Some hip pain down the leg but that is older. No numbness or weakness. No injury. Seeing surgery soon for abnormal mammogram. MEDICATIONS: Current Outpatient Medications Medication Sig aspirin, enteric coated (ASPIRIN, ENTERIC COATED) 81 mg EC tablet Take 81 mg by mouth once daily. levocetirizine 5 mg tablet Take 5 mg by mouth once daily. acetaminophen (TYLENOL) 325 mg tablet Take 2 tablets by mouth every 4 hours as needed for pain. ZINC ORAL Take 50 mg by mouth once daily. calcium carbonate/vitamin D3 (CALCIUM 600 + D ORAL) Take 1,200 mg by mouth. atorvastatin 10 mg tablet Take 10 mg by mouth once daily. metoprolol succinate XL (TOPROL XL) 50 mg ORAL 24 hr tablet Take 1 tablet by mouth once daily. MULTIVITAMIN TABLET Take one(1) tablet daily. No current facility-administered medications for this visit. 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 Difficult intravenous access 04/03/2021 Diverticulitis of colon (without mention of hemorrhage)(562.11) Essential hypertension, benign on Toprol Female stress incontinence Migraine with aura, without mention of intractable migraine without mention of status migrainosus Nonspecific (abnormal) findings on radiological and other examination of gastrointestinal tract PAST SURGICAL HISTORY Procedure Laterality Date BREAST SURGERY HX BX BREAST W/DEVICE 1ST LESION STEREOTACTIC GUID Right 01/31/2017 Benign microcalcifications and a fibroadenoma COLON SURGERY HX 04/04/2021 LAPAROSCOPIC COLECTOMY SIGMOID COLON W/ COLORECTAL ANASTOMOSIS COLONOSCOPY FLX DX W/COLLJ SPEC WHEN PFRMD 12/20/2006 COLONOSCOPY FLX DX W/COLLJ SPEC WHEN PFRMD 12/20/2016 Colonoscopy COLONOSCOPY FLX DX W/COLLJ SPEC WHEN PFRMD 03/16/2021 PAST SURGICAL HISTORY OF breast biopsies x 2 SKIN BIOPSY HX TONSILLECTOMY HX TONSILLECTOMY PRIMARY/SECONDARY <AGE 14 TOTAL ABDOMINAL HYSTERECT W/WO RMVL TUBE OVARY Hysterectomy, NEO uterine cancer VAGINAL HYSTERECTOMY FAMILY HISTORY Problem Relation Age of Onset Heart Father Hypertension Father Diabetes Father type II Cancer Mother uterine Heart Mother other (Fistula) Maternal Grandmother other (Hemochromatosis) Paternal Uncle Anesthesia Problems No Family History Social History Tobacco Use Smoking status: Never Smokeless tobacco: Never Vaping Use Vaping Use: Never used Substance Use Topics Alcohol use: Yes Comment: rare Drug use: No Reviewed current medications, allergies, past medical history, surgical history, family history andsocial history today. REVIEW OF SYSTEMS All other reviewed and negative other than HPI. HEALTH MAINTENANCE: Reviewed health maintenance issues today and recommended the following in detail. BP Controlled (<130/80) Never done Pap Testing due on 08/29/2021 VITALS: BP 127/82 Pulse 67 Ht 175.3 cm (5' 9) Wt 79.8 kg (176 lb) LMP 04/07/2004 BMI 25.99 kg/m Last 4 Encounter Wt Readings: Date: Wt: 08/28/2023 79.8 kg (176 lb) 08/14/2023 80.3 kg (177 lb) 07/11/2023 78.5 kg (173 lb 1 oz) 06/25/2023 78.5 kg (173 lb 1.6 oz) PHYSICAL EXAMINATION: General appearance: Well appearing, alert, in no acute distress, well-hydrated, well nourished. Skin: Skin color, texture, turgor normal, no suspicious rashes or lesions Head: Normocephalic, no masses, lesions, tenderness or abnormalities Nose/Sinuses: Nares normal, septum midline, mucosa normal, no drainage or sinus tenderness Back: BACK: Normal curvature of spine. No spine tenderness. Straight leg test negative. Deep tendonreflexes 2+/4 at patellas. Normal lower extremity strength. ASSESSMENT/PLAN: 1. Epistaxis - ICD9: 784.7, ICD10: R04.0 (primary diagnosis) - consider ent if recurs. Can use saline nose drops. 2. Chronic midline low back pain without sciatica - ICD9: 724.2, 338.29, ICD10: M54.50, G89.29 - declines tx or xrays. Red flags for re-assessment reviewed with patient in detail. Going to tops. Asks for goal weight. She is comfortable at 160 lbs. Luna Cope MD documented in this encounterMercy [facility] Hospital05-28-2024 History of Present illness Narrative* Danielle Mora RDMS - 08/27/2023 1:00 PM EDT Radiology Service Progress Note PATIENT NAME: Radha Witt DATE OF SERVICE: August 27, 2023 TIME: 3:11 PM PATIENT IDENTITY VERIFICATION COMPLETED USING TWO (2) IDENTIFIERS: Name and Date of confirmedby patient verbally. FALL SCREENING: Has the patient had 2 falls in the last year or 1 fall with injury or currently using an Ambulatory Assistive Device (Walker, Cane, Wheelchair, Crutches, etc.)? No PATIENT GENDER DATA: Female. status: : No status: NO. PATIENT RELEVANT IMPLANT DATA REVIEWED: Not Applicable PATIENT PRESENTS WITH AN IMPLANTABLE OR ATTACHED CONSTRUCTION ESTIMATOR: No RADIOLOGY DEPARTMENT: Ultrasound PERIPHERAL IV DATA: Not applicable SIGNED BY: Danielle Mora RDMS RVT August 27, 2023 3:11 PM documented in this encounterMercy [facility] Hospital05-28-2024 NoteIMPRESSION: INCOMPLETE: NEEDS ADDITIONAL IMAGING EVALUATION The 1.1 cm asymmetry in the left breast is indeterminate. An ultrasound is recommended. LIMITED ULTRASOUND OF LEFT BREAST: 08/27/2023 RESULT: Comparison is made to exams dated: 08/22/2023 mammogram, 08/15/2022 mammogram, 08/11/2021 mammogram, and 08/10/2020 mammogram - [facility]. Color flow and real-time ultrasound of the left breast lower inner quadrant were performed. [place] scale images of the real-time examination were reviewed. There is a 0.6 cm x 0.6 cm x 0.7 cm oval mass with a circumscribed margin in the left breast at 8 o'clock middle depth. This oval mass is hypoechoic with internal echoes. This correlates with mammography findings. Directed ultrasound of the left axilla was negative. IMPRESSION: SUSPICIOUS FINDING - BIOPSY SHOULD BE CONSIDERED The 0.6 cm x 0.6 cm x 0.7 cm oval mass in the left breast is suspicious of malignancy. An ultrasound guided biopsy is recommended. Negative left axillary ultrasound. Jude rao/oanh:08/27/2023 12:46:56 Multiple national specialty organizations have released breast cancer screening guidelines for women at average risk for developing breast cancer - guidelines that are based on both evidence and opinion, yet differ on when to start and how often to screen for breast cancer. With representation from Breast Imaging, Internal Medicine, Women's Health, Family Medicine, and Medical/Surgical Oncology, the [facility] has carefully reviewed the data and reached the following consensus: 1) All women should engage in shared decision-making with their providers to decide when to start and how often to screen; 2) All women should have the opportunity to start screening mammography at age 40; 3) For women ages 45-55, we recommend annual screening mammograms; 4) For women ages 55 and over, we support both the transition from an annual to a biennial interval if this aligns more with patient's values and preferences, or continuation with annual screening; 5) All women should discuss with their providers when to stop screening mammograms. Bundler(s): Danielle Mora, [facility]; RT Nash(R)(M), [facility] OVERALL STUDY BIRADS: 4 Suspicious finding - Biopsy should be considered Integrity Director: Oanh Transcribe Date/Time: Aug 27 2023 11:24A Dictated by : JUDE IQBAL MD This examination was interpreted and the report reviewed and electronically signed by: JUDE IQBAL MD on Aug 27 2023 12:46PM [facility] OF [id number] NoteIMPRESSION: INCOMPLETE: NEEDS ADDITIONAL IMAGING EVALUATION The 1.1 cm asymmetry in the left breast is indeterminate. An ultrasound is recommended. LIMITED ULTRASOUND OF LEFT BREAST: 08/27/2023 RESULT: Comparison is made to exams dated: 08/22/2023 mammogram, 08/15/2022 mammogram, 08/11/2021 mammogram, and 08/10/2020 mammogram - [facility]. Color flow and real-time ultrasound of the left breast lower inner quadrant were performed. [place] scale images of the real-time examination were reviewed. There is a 0.6 cm x 0.6 cm x 0.7 cm oval mass with a circumscribed margin in the left breast at 8 o'clock middle depth. This oval mass is hypoechoic with internal echoes. This correlates with mammography findings. Directed ultrasound of the left axilla was negative. IMPRESSION: SUSPICIOUS FINDING - BIOPSY SHOULD BE CONSIDERED The 0.6 cm x 0.6 cm x 0.7 cm oval mass in the left breast is suspicious of malignancy. An ultrasound guided biopsy is recommended. Negative left axillary ultrasound. Jude rao/oanh:08/27/2023 12:46:56 Multiple national specialty organizations have released breast cancer screening guidelines for women at average risk for developing breast cancer - guidelines that are based on both evidence and opinion, yet differ on when to start and how often to screen for breast cancer. With representation from Breast Imaging, Internal Medicine, Women's Health, Family Medicine, and Medical/Surgical Oncology, the [facility] has carefully reviewed the data and reached the following consensus: 1) All women should engage in shared decision-making with their providers to decide when to start and how often to screen; 2) All women should have the opportunity to start screening mammography at age 40; 3) For women ages 45-55, we recommend annual screening mammograms; 4) For women ages 55 and over, we support both the transition from an annual to a biennial interval if this aligns more with patient's values and preferences, or continuation with annual screening; 5) All women should discuss with their providers when to stop screening mammograms. Bundler(s): Danielle Mora, [facility]; RT Nash(R)(M), [facility] OVERALL STUDY BIRADS: 4 Suspicious finding - Biopsy should be considered Integrity Director: Oanh Transcribe Date/Time: Aug 27 2023 11:24A Dictated by: JUDE IQBAL MD This examination was interpreted and the report reviewed and electronically signed by: JUDE IQBAL MD on Aug 27 2023 12:46PM [id number] History of Present illness Narrative* Christie Pink Mammo Elissa - 08/27/2023 11:30 AM EDT Radiology Service Progress Note PATIENT NAME: Radha Witt DATE OF SERVICE: August 27, 2023 TIME: 11:50 AM PATIENT IDENTITY VERIFICATION COMPLETED USING TWO (2) IDENTIFIERS: Name and Date of confirmedby patient verbally. FALL SCREENING: Has the patient had 2 falls in the last year or 1 fall with injury or currently using an Ambulatory Assistive Device (Walker, Cane, Wheelchair, Crutches, etc.)? No PATIENT GENDER DATA: Female. status: : No status: NO. PATIENT RELEVANT IMPLANT DATA REVIEWED: Not Applicable PATIENT PRESENTS WITH AN IMPLANTABLE OR ATTACHED CONSTRUCTION ESTIMATOR: No RADIOLOGY DEPARTMENT: Mammography PERIPHERAL IV DATA: Not applicable SIGNED BY: José Miguel Caoo Elissa August 27, 2023 11:50 AM documented in this encounterMer[facility]05-[facility]24 Telephone encounter Note * Telephone Encounter - Kimberley Renee APRN.CNP - 08/23/2023 10:14 AM EDT Orders placed. Kimberley Renee APRN.CNP [facility]05-24-2024 Miscellaneous Notes* Telephone Encounter - Kimberley Renee APRN.CNP - 08/23/2023 10:14 AM EDT Orders placed. Kimberley Renee APRN.CNP * Telephone Encounter - Paula Bustamante RN - 08/23/2023 9:58 AM EDT [facility], phoned to report patient had a mammogram screen done yesterday, and radiologist reports it is suspicious. Asking pcp to order Left breast diagnostic mammogram Left breast US Patient is scheduled for these on 08-27-23. [address] orders. documented in this encounterMer[facility]05-24-2024 Telephone encounter Note * Telephone Encounter - Paula Bustamante RN - 08/23/2023 9:58 AM EDT [facility], phoned to report patient had a mammogram screen done yesterday, and radiologist reports it is suspicious. Asking pcp to order Left breast diagnostic mammogram Left breast US Patient is scheduled for these on 08-27-23. [address] orders. [facility] Note* Letter - Coordinator, Mammography - 08/23/2023 9:21 AM EDT August 23, 2023 PID: [id number] Radha Witt [address] [place] [address] Dear Ms. Witt, Your recent breast imaging exam on 08/22/2023 showed a possible finding that requires additional imaging studies for a complete evaluation. Most such findings are probably benign (not cancer). Your mammogram demonstrates that you have dense breast tissue, which could hide abnormalities. Dense breast tissue, in and of itself, is a relatively common condition. Therefore, this information is not provided to cause undue concern; rather, it is to raise your awareness and promote discussion with your health care provider regarding the presence of dense breast tissue in addition to other riskfactors. If you have a healthcare provider who ordered/prescribed your screening mammogram: Please call [phone] or EXT: [phone] to schedule an appointment for your additional imaging (if youhave not already done so). If you DO NOT have a healthcare provider (ie you did not have an order/prescription for your screening mammogram): Please call to schedule an appointment for your additional imaging (if you have not already done so). You must have an order/prescription from your physician when calling to schedule your appointment. If your order/prescription is not electronic, you must bring the hard copy with you on the day of your exam to avoid delays. Your imaging studies and reports are kept on file at [facility] as part of your permanent medical record, and are available for your continuing care. Thank you for allowing us to help in meeting your health care needs. Sincerely, Dr. Bernstein Interpreting Radiologist [facility] (Additional imaging) [facility]05-24-[facility]24 Miscellaneous Notes* Letter - Coordinator, Mammography - 08/23/2023 9:21 AM EDT August 23, 2023 PID: [id number] Radha Witt [address] [place] [address] Dear Ms. Witt, Your recent breast imaging exam on 08/22/2023 showed a possible finding that requires additional imaging studies for a complete evaluation. Most such findings are probably benign (not cancer). Your mammogram demonstrates that you have dense breast tissue, which could hide abnormalities. Dense breast tissue, in and of itself, is a relatively common condition. Therefore, this information is not provided to cause undue concern; rather, it is to raise your awareness and promote discussion with your health care provider regarding the presence of dense breast tissue in addition to other riskfactors. If you have a healthcare provider who ordered/prescribed your screening mammogram: Please call [phone] or EXT: [phone] to schedule an appointment for your additional imaging (if youhave not already done so). If you DO NOT have a healthcare provider (ie you did not have an order/prescription for your screening mammogram): Please call to schedule an appointment for your additional imaging (if you have not already done so). You must have an order/prescription from your physician when calling to schedule your appointment. If your order/prescription is not electronic, you must bring the hard copy with you on the day of your exam to avoid delays. Your imaging studies and reports are kept [facility] at [facility] as part of your permanent medical record, and are available for your continuing care. Thank you for allowing us to help in meeting your health care needs. Sincerely, Dr. Bernstein Interpreting Radiologist [facility] (Additional imaging) documented in this encounterMercy Memorial Hospital05-23-2024 History of Present illness Narrative* Prashanth Koroma RT(R) - 08/22/2023 3:25 PM EDT Radiology Service Progress Note PATIENT NAME: Radha Witt DATE OF SERVICE: August 22, 2023 TIME: 2:46 PM PATIENT IDENTITY VERIFICATION COMPLETED USING TWO (2) IDENTIFIERS: Name and Date of confirmedby patient verbally. FALL SCREENING: Has the patient had 2 falls in the last year or 1 fall with injury or currently using an Ambulatory Assistive Device (Walker, Cane, Wheelchair, Crutches, etc.)? No PATIENT GENDER DATA: Female. status: : No status: NO. PATIENT RELEVANT IMPLANT DATA REVIEWED: Not Applicable PATIENT PRESENTS WITH AN IMPLANTABLE OR ATTACHED CONSTRUCTION ESTIMATOR: No RADIOLOGY DEPARTMENT: Bone Density PERIPHERAL IV DATA: Not applicable SIGNED BY: RT Brandon(R) August 22, 2023 2:46 PM documented in this encounterMercy [facility] Hospital05-23-2024 History of Present illness Narrative* Chayito Balderas Mammo Tech - 08/22/2023 2:50 PM EDT Radiology Service Progress Note PATIENT NAME: Radha Witt DATE OF SERVICE: August 22, 2023 TIME: 2:23 PM PATIENT IDENTITY VERIFICATION COMPLETED USING TWO (2) IDENTIFIERS: Name and Date of confirmedby patient verbally. FALL SCREENING: Has the patient had 2 falls in the last year or 1 fall with injury or currently using an Ambulatory Assistive Device (Walker, Cane, Wheelchair, Crutches, etc.)? No PATIENT GENDER DATA: Female. status: : No status: NO. PATIENT RELEVANT IMPLANT DATA REVIEWED: Not Applicable PATIENT PRESENTS WITH AN IMPLANTABLE OR ATTACHED CONSTRUCTION ESTIMATOR: No RADIOLOGY DEPARTMENT: Mammography PERIPHERAL IV DATA: Not applicable SIGNED BY: Chayito Balderas Mammo Tech August 22, 2023 2:23 PM documented in this encounterMercy [facility] Hospital05-22-2024 History of Present illness Narrative* Crystal Fuentes RN - 08/21/2023 10:15 AM EDT [facility] Telephonic Outreach Provider Action/FYI Call placed to the patient. Denies any medical needs at this time. Patient encouraged to call PCP with any medical needs or concerns and the patient agrees to do so. Had her first nose bleed on Saturday not due to injury. PCP-appt next week to f/up from epistaxis. No other needs or concerns. Contacted for: Routine Telephonic Outreach Contact made with patient: Yes Patient identified by name and date of . Discussed care with patient Are you experiencing any new or worsening symptoms you need to talk about today? No Disease Specific Do you check your blood pressure at home? Yes, Enter readings: 130/70 Do you have new or worsening shortness of breath with activity? No Based on assessment technician, the following disposition is advised: No symptoms or symptoms present, not severe. Routed to: No Action Needed FERNANDA Education Provided this Outreach: No . Crystal Fuentes RN August 21, 2023 10:18 AM documented in this encounterMercy [facility]05-21-2024 History of Present illness Narrative* Crystal Fuentes RN - 08/20/2023 11:04 AM EDT [facility] Telephonic Outreach Provider Action/FYI Call placed to the patient to complete home monitoring questionnaire. Left voicemail for the patient and encouraged them to contact PCP with any medical needs or concerns. Contacted for: Routine Telephonic Outreach Contact made with patient: No, left message. Crystal Fuentes RN August 20, 2023 1:48 PM documented in this encounterMercy [facility] Hospital05-15-2024 Instructions* Patient Instructions* Luna Cope MD - 08/14/2023 4:16 PM EDT BONE MINERAL DENSITY PATIENT INSTRUCTIONS Bone mineral density testing measures the amount of calcium in certain parts of your bones. This information determines how strong your bones are. The test is used to detect osteoporosis, a disease in which the bone's mineral content and density are low, increasing a person's risk of fractures. Thelumbar spine (lower back) and the hip are the skeletal sites usually examined. For the test, remember that: 1. You cannot take this test if you are . 2. Eat a normal diet on the day of the test. 3. Take your medications as you normally would. 4. DO NOT take calcium supplements (such as Tums) for 24 hours before the test. 5. On the day of the test, leave valuables (jewelry or credit cards) at home. 6. The test should be performed prior to oral, rectal or IV contrast studies, or at least 7 days after any of these studies. For the test, you may be asked to wear a hospital gown. You will lie on your back, on a padded table, in a comfortable position. Generally, you can resume your usual activities immediately. documented in this encounterMercy [facility] Hospital05-15-2024 History of Present illness Narrative* Luna Cope MD - 08/14/2023 3:32 PM EDT Patient presents with: 6 Month Exam HPI: Patient presents today for office visit for follow up. HLD: Continues on Atorvastatin 10 mg daily No myalgias HTN: Continues on Metoprolol 50 mg daily Does not monitor BP Denies chest pain and shortness of breath Some headaches occ. Hx of migraines. Uses Fioricet prn Denies dizziness Denies palpitations and syncope Denies edema Discussed following with space engineer given her uterine cancer. Still sees [facility]. MEDICATIONS: Current Outpatient Medications Medication Sig aspirin, enteric coated (ASPIRIN, ENTERIC COATED) 81 mg EC tablet Take 81 mg by mouth once daily. levocetirizine 5 mg tablet Take 5 mg by mouth once daily. acetaminophen (TYLENOL) 325 mg tablet Take 2 tablets by mouth every 4 hours as needed for pain. ZINC ORAL Take 50 mg by mouth once daily. calcium carbonate/vitamin D3 (CALCIUM 600 + D ORAL) Take 1,200 mg by mouth. atorvastatin 10 mg tablet Take 10 mg by mouth once daily. metoprolol succinate XL (TOPROL XL) 50 mg ORAL 24 hr tablet Take 1 tablet by mouth once daily. MULTIVITAMIN TABLET Take one(1) tablet daily. No current facility-administered medications for this visit. 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 Difficult intravenous access 04/03/2021 Diverticulitis of colon (without mention of hemorrhage)(562.11) Essential hypertension, benign on Toprol Female stress incontinence Migraine with aura, without mention of intractable migraine without mention of status migrainosus Nonspecific (abnormal) findings on radiological and other examination of gastrointestinal tract PAST SURGICAL HISTORY Procedure Laterality Date BREAST SURGERY HX BX BREAST W/DEVICE 1ST LESION STEREOTACTIC GUID Right 01/31/2017 Benign microcalcifications and a fibroadenoma COLON SURGERY HX 04/04/2021 LAPAROSCOPIC COLECTOMY SIGMOID COLON W/ COLORECTAL ANASTOMOSIS COLONOSCOPY FLX DX W/COLLJ SPEC WHEN PFRMD 12/20/2006 COLONOSCOPY FLX DX W/COLLJ SPEC WHEN PFRMD 12/20/2016 Colonoscopy COLONOSCOPY FLX DX W/COLLJ SPEC WHEN PFRMD 03/16/2021 PAST SURGICAL HISTORY OF breast biopsies x 2 SKIN BIOPSY HX TONSILLECTOMY HX TONSILLECTOMY PRIMARY/SECONDARY <AGE 14 TOTAL ABDOMINAL HYSTERECT W/WO RMVL TUBE OVARY Hysterectomy, NEO uterine cancer VAGINAL HYSTERECTOMY FAMILY HISTORY Problem Relation Age of Onset Heart Father Hypertension Father Diabetes Father type II Cancer Mother uterine Heart Mother other (Fistula) Maternal Grandmother other (Hemochromatosis) Paternal Uncle Anesthesia Problems No Family History Social History Tobacco Use Smoking status: Never Smokeless tobacco: Never Vaping Use Vaping Use: Never used Substance Use Topics Alcohol use: Yes Comment: rare Drug use: No Reviewed current medications, allergies, past medical history, surgical history, family history andsocial history today. REVIEW OF SYSTEMS Discussed weight loss. She is thinking of joining [employer]. No new issues with sleep HEALTH MAINTENANCE: Reviewed health maintenance issues today and recommended the following in detail. BP Controlled (<130/80) Never done Pap Testing due on 08/29/2021 Advance Directive Discussion - is her surrogate. Behavioral Health Screening -PHQ2-GAD2 done No further intervention at this time Covid-19 Vaccine( season) due on 06/14/2023 Mammogram Screening due on 08/16/2023 VITALS: BP 134/82 Pulse 75 Ht 175.3 cm (5' 9) Wt 80.3 kg (177 lb) LMP 04/07/2004 SpO2 97% BMI 26.14 kg/m Last 4 Encounter Wt Readings: Date: Wt: 07/11/2023 78.5 kg (173 lb 1 oz) 06/25/2023 78.5 kg (173 lb 1.6 oz) 05/21/2023 78.9 kg (174 lb) 02/13/2023 78.5 kg (173 lb) PHYSICAL EXAMINATION: General appearance: Well appearing, alert, in no acute distress, well-hydrated, well nourished. Skin: Skin color, texture, turgor normal, no suspicious rashes or lesions Head: Normocephalic, no masses, lesions, tenderness or abnormalities Neck: Supple, no adenopathy; thyroid symmetric, normal size, no bruits Lungs: Lungs clear to auscultation. No wheezing, rhonchi, rales Heart: RRR without murmur, gallop, or rubs. No ectopy Abdomen: Normal abdominal exam, Abdomen soft, non-tender. Bowel sounds normal. No masses, organomegaly Extremities: No deformities, edema, skin discoloration, clubbing or cyanosis. Good capillary refill. ASSESSMENT/PLAN: 1. Essential hypertension, benign - ICD9: 401.1, ICD10: I10 (primary diagnosis) - Controlled - Continue current medications - Recommend regular aerobic exercise 2. Other hyperlipidemia - ICD9: 272.4, ICD10: E78.49 - follow las. 3. Insomnia, unspecified type - ICD9: 780.52, ICD10: G47.00 - stable. 4. History of uterine cancer - ICD9: V10.42, ICD10: Z85.42 - will follow with space engineer 5. Osteopenia of multiple sites - ICD9: 733.90, ICD10: M85.89 - Reviewed the need for Calcium and Vitamin D supplements and weight bearing exercise as tolerated - DXA-AXIAL SKELETON - BD DXA TRABECULAR BONE SCORE (TBS) 6. Stage 3a chronic kidney disease (HCC) - ICD9: 585.3, ICD10: N18.31 - follow labs. Avoid nsaids. - COMPLETE BLOOD COUNT AND DIFFERENTIAL - COMPREHENSIVE METABOLIC PANEL - LIPID PANEL BASIC 7. Disorder of bone - ICD9: 733.90, ICD10: M89.9 - Reviewed the need for Calcium and Vitamin D supplements and weight bearing exercise as tolerated - DXA-AXIAL SKELETON - BD DXA TRABECULAR BONE SCORE (TBS) 8. Encounter for screening mammogram for malignant neoplasm of breast - ICD9: V76.12, ICD10: Z12.31 - ZAC SCREENING W QUE 9. Need for vaccination - ICD9: V05.9, ICD10: Z23 - [employer] COVID-19 VACCINE ( SEASON) AGE 12+ YR Luna Cope MD RTO in six months or prn documented in this encounterMercy [facility] Hospital04-23-2024 History of Present illness Narrative* Crystal Fuentes RN - 07/23/2023 1:54 PM EDT CD Telephonic Outreach Provider Action/FYI Call placed to the patient. Denies any medical needs at this time. Patient encouraged to call PCP with any medical needs or concerns and the patient agrees to do so. PCP appt 08/13 Contacted for: Routine Telephonic Outreach Contact made with patient: Yes Patient identified by name and date of . Discussed care with patient Are you experiencing any new or worsening symptoms you need to talk about today? No Disease Specific Do you check your blood pressure at home? No Do you have new or worsening shortness of breath with activity? No Based on assessment technician, the following disposition is advised: No symptoms or symptoms present, not severe. Routed to: No Action Needed FERNANDA Education Provided this Outreach: No . Crystal Fuentes RN July 23, 2023 2:32 PM documented in this encounterMercy [facility] Hospital04-11-2024 Miscellaneous Notes* Discharge Instr - Nursing - Yolanda Bass RN - 07/11/2023 8:37 AM EDT The patient received a copy of Colonoscopy discharge instructions that contain information for how to contact the physician who performed the procedure and when to seek medical care. documented in this encounterMercy [facility] Hospital04-11-2024 Nurse Note* Yolanda Bass RN - 07/11/2023 8:21 AM EDT Abdomen soft non-distended. Will continue to monitor. documented in this encounterMercy [facility] Hospital04-11-2024 History and physical note * Layla Norris MD - 07/11/2023 8:00 AM EDT Images from the original note were not included. HISTORY AND PHYSICAL Radha Nicolle Witt 1950 REFERRING PHYSICIAN: Luna Cope MD CHIEF COMPLAINT: New Patient HPI: The patient is a 73 year old female referred for endoscopy. Complains of aching/burning pain in her left lower abdominal area. Refers to a discomfort more than anything. Points to her LLQ. Tender to touch. Intermittent X 5 days. Denies any urinary symptoms. Denies nausea or vomiting. No appetite changes. Denies flank pain. Denies diarrhea. Denies bloody or black stool. Not really sure that anything triggers the pain. Has not taken anything OTC for it. Episodes last anywhere from a few minutes to a few hours. No discharge or bleeding. Movement does not change. Has not gotten worse since started but not gotten better. No fever or chills. No trauma. CT scan: Lower Thorax: Normal. Liver: Normal. Gallbladder/Biliary Tree: Unremarkable gallbladder. Unchanged mild extrahepatic biliary ductal dilatation, with the CBD measuring up to 10 mm with smooth tapering distally.. Spleen: Normal. Pancreas: Normal. Adrenal Glands: Normal. Kidneys/Ureters: Unchanged small left upper pole cyst. No hydronephrosis. Gastrointestinal: Small periampullary duodenal diverticulum. Normal appendix. No bowel dilatation or wall thickening. Partial colectomy with distal colonic anastomosis. Bladder: Normal. Uterus/Adnexa: Status post hysterectomy. No suspicious lesion in the resection bed. Lymph Nodes: Normal. Vessels: Mild aortoiliac atherosclerotic disease. Peritoneum/Retroperitoneum: Normal. Bones/Soft Tissues: Degenerative changes in the spine. Grade 1 anterolisthesis of L4 on L5. Radha has undergone prior endoscopy. 2020 The patient is being seen by me today at the request of Dr. Luna Cope MD for my opinion and advice regarding Llq pain History of partial colectomy. 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 Difficult intravenous access 04/03/2021 Diverticulitis of colon (without mention of hemorrhage)(562.11) Essential hypertension, benign on Toprol Female stress incontinence Migraine with aura, without mention of intractable migraine without mention of status migrainosus Nonspecific (abnormal) findings on radiological and other examination of gastrointestinal tract PAST SURGICAL HISTORY PAST SURGICAL HISTORY Procedure Laterality Date BREAST SURGERY HX BX BREAST W/DEVICE 1ST LESION STEREOTACTIC GUID Right 01/31/2017 Benign microcalcifications and a fibroadenoma COLON SURGERY HX 04/04/2021 LAPAROSCOPIC COLECTOMY SIGMOID COLON W/ COLORECTAL ANASTOMOSIS COLONOSCOPY FLX DX W/COLLJ SPEC WHEN PFRMD 12/20/2006 COLONOSCOPY FLX DX W/COLLJ SPEC WHEN PFRMD 12/20/2016 Colonoscopy COLONOSCOPY FLX DX W/COLLJ SPEC WHEN PFRMD 03/16/2021 PAST SURGICAL HISTORY OF breast biopsies x 2 SKIN BIOPSY HX TONSILLECTOMY HX TONSILLECTOMY PRIMARY/SECONDARY <AGE 14 TOTAL ABDOMINAL HYSTERECT W/WO RMVL TUBE OVARY Hysterectomy, NEO uterine cancer VAGINAL HYSTERECTOMY CURRENT MEDICATIONS Current Outpatient Medications Medication Sig aspirin, enteric coated (ASPIRIN, ENTERIC COATED) 81 mg EC tablet Take 81 mg by mouth once daily. levocetirizine 5 mg tablet Take 5 mg by mouth once daily. acetaminophen (TYLENOL) 325 mg tablet Take 2 tablets by mouth every 4 hours as needed for pain. ZINC ORAL Take 50 mg by mouth once daily. calcium carbonate/vitamin D3 (CALCIUM 600 + D ORAL) Take 1,200 mg by mouth. atorvastatin 10 mg tablet Take 10 mg by mouth once daily. metoprolol succinate XL (TOPROL XL) 50 mg ORAL 24 hr tablet Take 1 tablet by mouth once daily. MULTIVITAMIN TABLET Take one(1) tablet daily. ondansetron (ZOFRAN) 4 mg tablet Take 1 tablet by mouth every 8 hours as needed for nausea/vomiting(for nausea.). No current facility-administered medications for this visit. ALLERGIES: Tetracyclines PERSONAL HISTORY: SOCIAL HISTORY Social History Tobacco Use Smoking status: Never Smokeless tobacco: Never Vaping Use Vaping Use: Never used Substance Use Topics Alcohol use: Yes Comment: rare Drug use: No FAMILY HISTORY: FAMILY HISTORY FAMILY HISTORY Problem Relation Age of Onset Heart Father Hypertension Father Diabetes Father type II Cancer Mother uterine Heart Mother other (Fistula) Maternal Grandmother other (Hemochromatosis) Paternal Uncle Anesthesia Problems No Family History REVIEW OF SYMPTOMS: negative except as noted above PHYSICAL EXAMINATION: General: The patient is 73 year old female, well nourished, well hydrated in no acute distress. Thepatient is oriented to time, place, and person. VITALS: Blood pressure 129/80, pulse 72, weight 78.5 kg (173 lb 1.6 oz), last menstrual period 04/07/2004. Body mass index is 25.56 kg/m . HEENT: Normal cephalic, ataumatic, pupils are equally round, sclera are anicteric, mucous membranesare moist, oropharynx is clear. Neck has no masses, asymmetry or lymphadenopathy. Thyroid is unremarkable. Respiratory: Clear to auscultation and percussion. Normal respiratory excursion and pattern. Cardiac: Examination is regular rate and rhythm. Abdominal exam: Soft, nontender, with no palpable masses. No hepatosplenomegaly. No palpable hernias. Rectal exam: exam deferred Extremities: no clubbing, cyanosis or edema. No adenopathy. Other: LABORATORY VALUES: As Noted RADIOLOGIC STUDIES: As Noted Assessment IMPRESSION: Llq pain History of partial colectomy PLAN: I plan to perform lower endoscopy. We discussed the risks and benefits of the planned endoscopy. I have informed the patient that complications can occur including failure to complete the endoscopy and perforation. The patient had the opportunity to ask questions concerning the planned endoscopy. My staff has also explained the procedure to the patient in understandable terms and has given the patient printed material concerning the procedure. The patient freely consents to surgery. I plan to use Miralax bowel preperation for endoscopy Diagnoses: (R10.32) LLQ pain (Z90.49) History of partial colectomy My findings have been communicated to Dr. Luna Cope MD via shared medical record. This note will be forwarded to Dr. Luna Cope MD. Return to Clinic: The patient is instructed to follow-up with me 1 week post operatively. Layla Norris III, MD UPDATED HISTORY AND PHYSICAL EXAMINATION SERVICE DATE: 07/11/2023 SERVICE TIME: 7:51 AM PHYSICAL EXAM MUST BE COMPLETED ON ADMISSION The History and Physical (completed in the past 30 days) has been reviewed and the patient has beenexamined. The contents accurately reflect the patient's condition with the following additions or revisions since the H&P was completed. Examination indicates no changes. This H&P can be found in the attached. SIGNATURE: Layla Norris III, MD PATIENT NAME: Radha Witt DATE: July 11, 2023 TIME: 7:51 AM documented in this [facility] History of Present illness Narrative* Crystal Fuentes, RN - 07/04/2023 11:42 AM EDT [facility] Telephonic Outreach Provider Action/FYI Call placed to the patient. Denies any medical needs at this time. Patient encouraged to call PCP with any medical needs or concerns and the patient agrees to do so. Spoke to patients spouse, Luis. Patient is at the library watching GI procedural videos. Doing good and no needs at this time. Contacted for: Routine Telephonic Outreach Contact made with patient: Yes Patient identified by name and date of . Discussed care with spouse Are you experiencing any new or worsening symptoms you need to talk about today? No Disease Specific Do you check your blood pressure at home? No Do you have new or worsening shortness of breath with activity? No Based on assessment technician, the following disposition is advised: No symptoms or symptoms present, not severe. Routed to: No Action Needed FERNANDA Education Provided this Outreach: No . Crystal Fuentes RN July 04, 2023 11:49 AM documented in this encounterMer[facility]03-26-2024 Instructions* Patient Instructions* Layla Norris MD - 06/25/2023 9:44 AM EDT Images from the original note were not included. Bowel Preparation Instructions for: Miralax-Gatorade Preparations IF YOU DO NOT FOLLOW THESE DIRECTIONS, YOUR COLONOSCOPY WILL BE CANCELLED. [place] Instructions: Your bowel must be empty so that your doctor can clearly view your colon. Follow all of the instructions in this handout EXACTLY as they are written. Do NOT eat any solid food the ENTIRE day before your colonoscopy. Buy your bowel preparation at least 5 days before your colonoscopy. Four (4) Dulcolax laxative tablets containing 5mg of bisacodyl each (NOT Dulcolax stool softener) One (1) 8.3oz. bottle Miralax (238 grams) or generic equivalent 2 x 32oz. Bottles of Gatorade (NOT RED) Diabetic Patients: Use G2 (Gatorade 2) TRANSPORTATION on the Day of Your Exam A responsible adult MUST be present with you at Check In prior to your colonoscopy and REMAIN in the endoscopy area until you are discharged. You are NOT ALLOWED to drive, take a taxi or bus, or leave the Endoscopy Center ALONE. If you do not have a responsible escort car driver (family member or friend) withyou to take you home, your exam cannot be done with sedation and will be cancelled. Please bring a list of all of your current medications, including any Rmuj-yfv-Bphyxlm medications with you. Medications If you take insulin, diabetic medications or blood thinners such as Coumadin (warfarin), Plavix (clopidogrel), Ticlid (ticlopidine hydrochloride), Agrylin (anagrelide), Xarelto (Rivaroxaban), Pradaxa(Dabigatran), Eliquis (Apixaban), and Effient (Prasugrel). You MUST call the doctors who orders those medicines for instructions on altering the dosage before your colonoscopy. All other medications should be taken the day of the exam with a sip of water including ASPIRIN. Five (5) Days Before Your Colonoscopy Do NOT take medicines that stop diarrhea - such as Imodium, Kaopectate, or Pepto Bismol. Do NOT take fiber supplements - such as Metamucil, Citrucel, or Perdiem. Do NOT take products that contain iron - such as multi-vitamins (the label lists what is in the products). Three (3) Days Before Your Colonoscopy Do NOT eat high-fiber foods - such as popcorn, beans, seeds (flax, sunflower, quinoa), multigrain bread, nuts, salad/vegetables, or fresh and dried fruit. 1 Bowel Preparation Instructions for: Miralax-Gatorade Preparations One (1) Day Before Your Colonoscopy Only drink clear liquids the ENTIRE DAY before your colonoscopy. Do NOT eat any solid foods. Drink at least 8 ounces of clear liquids every hour after waking up. The clear liquids you can drink include: Clear Liquid (NO RED LIQUIDS) DO NOT DRINK Gatorade, Pedialyte or Powerade Clear broth or bouillon Coffee or tea (no milk or non-dairy creamer) Carbonated and non-carbonated soft drinks Francesco-Aid or other fruit flavored drinks Strained fruit juices (no pulp) Jell-O, popsicles, hard candy Water Alcohol Milk or non-dairy creamers Noodles or vegetables in soup Juice with pulp Liquid you cannot see through Do not use tobacco/vaping products Mix 1/2 of Miralax bottle (119 grams) in each 32 ounces of Gatorade bottle until dissolved. Keep cool in the refrigerator. DO NOT ADD ICE. The bowel preparation solution will be consumed in two parts. Part 1 5:00 PM - Evening before your colonoscopy Take 4 Dulcolax tablets. 6 PM - Evening before your colonoscopy Drink 32 oz. of the mixed solution. Drink an 8 oz. glass of bowel preparation every 15 minutes for a total of 4 glasses. Fifteen (15) minutes later, drink an 8 oz. glass of of clear liquids every 15 minutes for a total of 2 glasses. You may continue to drink clear liquids till midnight. Part 2 On the day of your colonoscopy you may drink clear liquids up to (three) 3 hours prior to procedure. 4 1/2 hours before your colonoscopy Take another 32 oz. bottle of mixed solution. Drink an 8 oz. glass of bowel prep every 15 minutes for a total of 4 glasses. Fifteen (15) minutes later, drink an 8 oz. glass of clear liquids every 15 minutes for a total of 2glasses. You may continue to drink clear liquids up to (three) 3 hours before your exam. 2 03/2019 documented in this encounterMer[facility]03-26-2024 History of Present illness Narrative* Layla Norris MD - 06/25/2023 9:43 AM EDT HISTORY AND PHYSICAL Radha Witt 1950 REFERRING PHYSICIAN: Luna Cope MD CHIEF COMPLAINT: New Patient HPI: The patient is a 73 year old female referred for endoscopy. Complains of aching/burning pain in her left lower abdominal area. Refers to a discomfort more than anything. Points to her LLQ. Tender to touch. Intermittent X 5 days. Denies any urinary symptoms. Denies nausea or vomiting. No appetite changes. Denies flank pain. Denies diarrhea. Denies bloody or black stool. Not really sure that anything triggers the pain. Has not taken anything OTC for it. Episodes last anywhere from a few minutes to a few hours. No discharge or bleeding. Movement does not change. Has not gotten worse since started but not gotten better. No fever or chills. No trauma. CT scan: Lower Thorax: Normal. Liver: Normal. Gallbladder/Biliary Tree: Unremarkable gallbladder. Unchanged mild extrahepatic biliary ductal dilatation, with the CBD measuring up to 10 mm with smooth tapering distally.. Spleen: Normal. Pancreas: Normal. Adrenal Glands: Normal. Kidneys/Ureters: Unchanged small left upper pole cyst. No hydronephrosis. Gastrointestinal: Small periampullary duodenal diverticulum. Normal appendix. No bowel dilatation or wall thickening. Partial colectomy with distal colonic anastomosis. Bladder: Normal. Uterus/Adnexa: Status post hysterectomy. No suspicious lesion in the resection bed. Lymph Nodes: Normal. Vessels: Mild aortoiliac atherosclerotic disease. Peritoneum/Retroperitoneum: Normal. Bones/Soft Tissues: Degenerative changes in the spine. Grade 1 anterolisthesis of L4 on L5. Radha has undergone prior endoscopy. 2020 The patient is being seen by me today at the request of Dr. Luna Cope MD for my opinion and advice regarding Llq pain History of partial colectomy. 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 Difficult intravenous access 04/03/2021 Diverticulitis of colon (without mention of hemorrhage)(562.11) Essential hypertension, benign on Toprol Female stress incontinence Migraine with aura, without mention of intractable migraine without mention of status migrainosus Nonspecific (abnormal) findings on radiological and other examination of gastrointestinal tract PAST SURGICAL HISTORY Procedure Laterality Date BREAST SURGERY HX BX BREAST W/DEVICE 1ST LESION STEREOTACTIC GUID Right 01/31/2017 Benign microcalcifications and a fibroadenoma COLON SURGERY HX 04/04/2021 LAPAROSCOPIC COLECTOMY SIGMOID COLON W/ COLORECTAL ANASTOMOSIS COLONOSCOPY FLX DX W/COLLJ SPEC WHEN PFRMD 12/20/2006 COLONOSCOPY FLX DX W/COLLJ SPEC WHEN PFRMD 12/20/2016 Colonoscopy COLONOSCOPY FLX DX W/COLLJ SPEC WHEN PFRMD 03/16/2021 PAST SURGICAL HISTORY OF breast biopsies x 2 SKIN BIOPSY HX TONSILLECTOMY HX TONSILLECTOMY PRIMARY/SECONDARY <AGE 14 TOTAL ABDOMINAL HYSTERECT W/WO RMVL TUBE OVARY Hysterectomy, NEO uterine cancer VAGINAL HYSTERECTOMY Current Outpatient Medications Medication Sig aspirin, enteric coated (ASPIRIN, ENTERIC COATED) 81 mg EC tablet Take 81 mg by mouth once daily. levocetirizine 5 mg tablet Take 5 mg by mouth once daily. acetaminophen (TYLENOL) 325 mg tablet Take 2 tablets by mouth every 4 hours as needed for pain. ZINC ORAL Take 50 mg by mouth once daily. calcium carbonate/vitamin D3 (CALCIUM 600 + D ORAL) Take 1,200 mg by mouth. atorvastatin 10 mg tablet Take 10 mg by mouth once daily. metoprolol succinate XL (TOPROL XL) 50 mg ORAL 24 hr tablet Take 1 tablet by mouth once daily. MULTIVITAMIN TABLET Take one(1) tablet daily. ondansetron (ZOFRAN) 4 mg tablet Take 1 tablet by mouth every 8 hours as needed for nausea/vomiting(for nausea.). No current facility-administered medications for this visit. ALLERGIES: Tetracyclines PERSONAL HISTORY: Social History Tobacco Use Smoking status: Never Smokeless tobacco: Never Vaping Use Vaping Use: Never used Substance Use Topics Alcohol use: Yes Comment: rare Drug use: No FAMILY HISTORY: FAMILY HISTORY Problem Relation Age of Onset Heart Father Hypertension Father Diabetes Father type II Cancer Mother uterine Heart Mother other (Fistula) Maternal Grandmother other (Hemochromatosis) Paternal Uncle Anesthesia Problems No Family History REVIEW OF SYMPTOMS: negative except as noted above PHYSICAL EXAMINATION: General: The patient is 73 year old female, well nourished, well hydrated in no acute distress. Thepatient is oriented to time, place, and person. VITALS: Blood pressure 129/80, pulse 72, weight 78.5 kg (173 lb 1.6 oz), last menstrual period 04/07/2004. Body mass index is 25.56 kg/m . HEENT: Normal cephalic, ataumatic, pupils are equally round, sclera are anicteric, mucous membranesare moist, oropharynx is clear. Neck has no masses, asymmetry or lymphadenopathy. Thyroid is unremarkable. Respiratory: Clear to auscultation and percussion. Normal respiratory excursion and pattern. Cardiac: Examination is regular rate and rhythm. Abdominal exam: Soft, nontender, with no palpable masses. No hepatosplenomegaly. No palpable hernias. Rectal exam: exam deferred Extremities: no clubbing, cyanosis or edema. No adenopathy. Other: LABORATORY VALUES: As Noted RADIOLOGIC STUDIES: As Noted Assessment IMPRESSION: Llq pain History of partial colectomy PLAN: I plan to perform lower endoscopy. We discussed the risks and benefits of the planned endoscopy. I have informed the patient that complications can occur including failure to complete the endoscopy and perforation. The patient had the opportunity to ask questions concerning the planned endoscopy. My staff has also explained the procedure to the patient in understandable terms and has given the patient printed material concerning the procedure. The patient freely consents to surgery. I plan to use Miralax bowel preperation for endoscopy Diagnoses: (R10.32) LLQ pain (Z90.49) History of partial colectomy My findings have been communicated to Dr. Luna Cope MD via shared medical record. This note will be forwarded to Dr. Luna Cope MD. Return to Clinic: The patient is instructed to follow-up with me 1 week post operatively. Layla Norris III, MD documented in this encounter[facility]03-11-2024 History of Present illness Narrative* Crystal Fuentes RN - 06/10/2023 10:41 AM EDT [facility] Telephonic Outreach Provider Action/FYI Call placed to the patient. Denies any medical needs at this time. Patient encouraged to call PCP with any medical needs or concerns and the patient agrees to do so. Lower left abd. Still sore. Appt. With Dr. Norris 06/24 for that. Is getting blood work for upcoming appt with PCP () this Saturday in [place]. No needs at this time. Contacted for: Routine Telephonic Outreach Contact made with patient: Yes Patient identified by name and date of . Discussed care with patient Are you experiencing any new or worsening symptoms you need to talk about today? No Disease Specific Do you check your blood pressure at home? No Do you have new or worsening shortness of breath with activity? No Based on assessment technician, the following disposition is advised: No symptoms or symptoms present, not severe. Routed to: No Action Needed FERNANDA Education Provided this Outreach: No . Crystal Fuentes RN June 10, 2023 10:45 AM documented in this encounterMer[facility]03-08-2024 History of Present illness Narrative* Crystal Fuentes RN - 06/07/2023 11:34 AM EST [facility] Telephonic Outreach Provider Action/FYI Call placed to the patient to complete home monitoring questionnaire. Left voicemail for the patient and encouraged them to contact PCP with any medical needs or concerns. Contacted for: Routine Telephonic Outreach Contact made with patient: No, left message. Crystal Fuentes RN June 07, 2023 11:35 AM documented in this encounterMer[facility]02-23-2024 Miscellaneous Notes* Telephone Encounter - Laura Joy - 05/24/2023 8:46 AM EST 1st attempt lvm * Telephone Encounter - Violet Fry LPN - 05/23/2023 3:55 PM EST Patient had general surgery consult placed during virtual visit today. Please set up with Dr Norris documented in this encounterMer[facility]02-22-2024 History of Present illness Narrative* Luna Cope MD - 05/23/2023 9:45 AM EST Patient presents with: Recheck HPI:This Team Access Model visit is a phone encounter. It required patient- provider interaction forthe medical decision making as documented below. Patient has elected to have a visit through distance medicine I have communicated my name and active licensure. The patient's identity and physical location wereverified at the time of this visit. Either the patient or their legal corporate sales representative has been informed of the risks and benefits of -- and alternatives to -- treatment through a remote evaluation andconsents to proceed with the evaluation remotely. Reviewed labs. We had been working up her polycythemia in the past. Is higher but some it can be related to hydration. Admits to not drinking much. Is working on that. Will follow and possibly consider hematology if persists. Ct was nonrevealing. Showed borderline enlarged duct dilatation but is unchanged from 2019. Bowels are moving well. No urinary issues. Still feels very similar to her previous diverticulitis but much less pain. Is not feeling as if she has bowel urgency or gas. No fever or chills. No bloody or black stools. No changes with positioning. Discussed options. I am not seeing a definite etiology of her pain. Discussed it could be adhesions. She is interested in seeing Dr Norris. See previous ov: Complains of aching/burning pain in her left lower abdominal area. Refers to a discomfort more than anything. Points to her LLQ. Tender to touch. Intermittent X 5 days. Denies any urinary symptoms. Denies nausea or vomiting. No appetite changes. Denies flank pain. Denies diarrhea. Denies bloody or black stool. Not really sure that anything triggers the pain. Has not taken anything OTC for it. Episodes last anywhere from a few minutes to a few hours. No discharge or bleeding. Movement does not change. Has not gotten worse since started but not gotten better. No fever or chills. No trauma. CT scan: Lower Thorax: Normal. Liver: Normal. Gallbladder/Biliary Tree: Unremarkable gallbladder. Unchanged mild extrahepatic biliary ductal dilatation, with the CBD measuring up to 10 mm with smooth tapering distally.. Spleen: Normal. Pancreas: Normal. Adrenal Glands: Normal. Kidneys/Ureters: Unchanged small left upper pole cyst. No hydronephrosis. Gastrointestinal: Small periampullary duodenal diverticulum. Normal appendix. No bowel dilatation or wall thickening. Partial colectomy with distal colonic anastomosis. Bladder: Normal. Uterus/Adnexa: Status post hysterectomy. No suspicious lesion in the resection bed. Lymph Nodes: Normal. Vessels: Mild aortoiliac atherosclerotic disease. Peritoneum/Retroperitoneum: Normal. Bones/Soft Tissues: Degenerative changes in the spine. Grade 1 anterolisthesis of L4 on L5. Result History Component Latest Ref Rng & Units 05/21/2023 WBC 3.70 - 11.00 k/uL 10.04 RBC 3.90 - 5.20 m/uL 5.25 (H) Hemoglobin 11.5 - 15.5 g/dL 16.5 (H) Hematocrit 36.0 - 46.0 % 49.1 (H) MCV 80.0 - 100.0 fL 93.5 MCH 26.0 - 34.0 pg 31.4 MCHC 30.5 - 36.0 g/dL 33.6 RDW-CV 11.5 - 15.0 % 13.2 Platelet Count 150 - 400 k/uL 205 MPV 9.0 - 12.7 fL 9.7 Neut% % 58.5 Abs Neut (ANC) 1.45 - 7.50 k/uL 5.88 Lymph% % 32.5 Abs Lymph 1.00 - 4.00 k/uL 3.26 Swift% % 6.6 Abs Swift <0.87 k/uL 0.66 Eosin% % 1.7 Abs Eosin <0.46 k/uL 0.17 Baso% % 0.5 Abs Baso <0.11 k/uL 0.05 Immature Gran % % 0.2 IMMATURE GRANS (ABS) <0.10 k/uL <0.03 NRBC /100 WBC 0.0 Absolute nRBC <0.01 k/uL <0.01 DTYPE Auto Protein, Total 6.3 - 8.0 g/dL 7.1 Albumin 3.9 - 4.9 g/dL 4.4 Calcium 8.5 - 10.2 mg/dL 10.2 Bilirubin, Total 0.2 - 1.3 mg/dL 0.5 Alkaline Phosphatase 34 - 123 U/L 102 AST 13 - 35 U/L 22 ALT 7 - 38 U/L 28 Glucose 74 - 99 mg/dL 90 BUN 7 - 21 mg/dL 17 Creatinine 0.58 - 0.96 mg/dL 1.06 (H) Sodium 136 - 144 mmol/L 140 Potassium 3.7 - 5.1 mmol/L 3.8 Chloride 97 - 105 mmol/L 104 CO2 22 - 30 mmol/L 27 Anion Gap 9 - 18 mmol/L 9 eGFR >=60 mL/min/1.73m 56 (L) Culture <10,000 CFU/ml Normal urogenital laurence MEDICATIONS: Current Outpatient Medications Medication Sig acetaminophen 325 mg-caffeine 40 mg-butalbital 50 mg (FIORICET) per tablet Take 1 tablet by mouth every 6 hours as needed (headache) for up to 30 days. aspirin, enteric coated (ASPIRIN, ENTERIC COATED) 81 mg EC tablet Take 81 mg by mouth once daily. levocetirizine 5 mg tablet Take 5 mg by mouth once daily. acetaminophen (TYLENOL) 325 mg tablet Take 2 tablets by mouth every 4 hours as needed for pain. ZINC ORAL Take 50 mg by mouth once daily. calcium carbonate/vitamin D3 (CALCIUM 600 + D ORAL) Take 1,200 mg by mouth. atorvastatin 10 mg tablet Take 10 mg by mouth once daily. metoprolol succinate XL (TOPROL XL) 50 mg ORAL 24 hr tablet Take 1 tablet by mouth once daily. MULTIVITAMIN TABLET Take one(1) tablet daily. No current facility-administered medications for this visit. 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 Difficult intravenous access 04/03/2021 Diverticulitis of colon (without mention of hemorrhage)(562.11) Essential hypertension, benign on Toprol Female stress incontinence Migraine with aura, without mention of intractable migraine without mention of status migrainosus Nonspecific (abnormal) findings on radiological and other examination of gastrointestinal tract PAST SURGICAL HISTORY Procedure Laterality Date BREAST SURGERY HX BX BREAST W/DEVICE 1ST LESION STEREOTACTIC GUID Right 01/31/2017 Benign microcalcifications and a fibroadenoma COLON SURGERY HX 04/04/2021 LAPAROSCOPIC COLECTOMY SIGMOID COLON W/ COLORECTAL ANASTOMOSIS COLONOSCOPY FLX DX W/COLLJ SPEC WHEN PFRMD 12/20/2006 COLONOSCOPY FLX DX W/COLLJ SPEC WHEN PFRMD 12/20/2016 Colonoscopy COLONOSCOPY FLX DX W/COLLJ SPEC WHEN PFRMD 03/16/2021 PAST SURGICAL HISTORY OF breast biopsies x 2 SKIN BIOPSY HX TONSILLECTOMY HX TONSILLECTOMY PRIMARY/SECONDARY <AGE 14 TOTAL ABDOMINAL HYSTERECT W/WO RMVL TUBE OVARY Hysterectomy, NEO uterine cancer VAGINAL HYSTERECTOMY FAMILY HISTORY Problem Relation Age of Onset Heart Father Hypertension Father Diabetes Father type II Cancer Mother uterine Heart Mother other (Fistula) Maternal Grandmother other (Hemochromatosis) Paternal Uncle Anesthesia Problems No Family History Social History Tobacco Use Smoking status: Never Smokeless tobacco: Never Vaping Use Vaping Use: Never used Substance Use Topics Alcohol use: Yes Comment: rare Drug use: No Reviewed current medications, allergies, past medical history, surgical history, family history andsocial history today. REVIEW OF SYSTEMS All other reviewed and negative other than HPI. VITALS: LMP 04/07/2004 Last 4 Encounter Wt Readings: Date: Wt: 05/21/2023 78.9 kg (174 lb) 02/13/2023 78.5 kg (173 lb) 10/13/2022 77.7 kg (171 lb 3.2 oz) 09/03/2022 79.8 kg (176 lb) PHYSICAL EXAMINATION: Patient is alert and oriented during visit. Answers appropriately. ASSESSMENT/PLAN: 1. LLQ pain - ICD9: 789.04, ICD10: R10.32 (primary diagnosis) - would like to see surgery. Red flags for re-assessment reviewed with patient in detail. - CONSULT TO GENERAL SURGERY 2. History of partial colectomy - ICD9: V45.72, ICD10: Z90.49 - CONSULT TO GENERAL SURGERY 3. Polycythemia: Push fluids and recheck labs in two weeks. Consider hematology if persists. 4. Renal insufficiency Recheck labs. Luna Cope MD I spent 18 minutes in the visit, with more than 50% of the total [id number] time of the visit in counseling / coordination of care. documented in this encounterMer[facility]02-21-2024 Miscellaneous Notes* Telephone Encounter - Violet Fry LPN - 05/22/2023 11:43 AM EST Spoke with Radha and visit scheduled. * Telephone Encounter - Luna Cope MD - 05/22/2023 11:18 AM EST We could do vv in am * Telephone Encounter - Violet Fry LPN - 05/22/2023 11:10 AM EST Spoke with patient. Son is having surgery on Saturday in [place]. * Telephone Encounter - Luna Cope MD - 05/22/2023 10:14 AM EST Can we add her onto one of my one day spots on Saturday? * Telephone Encounter - Paula Bustamante, ABIEL - 05/22/2023 9:54 AM EST Pt phoned with update: states she is feeling the same as yesterday, no better and no worse. Pt will await the urine cx results. * Telephone Encounter - Hang Coughlin LPN - 05/21/2023 4:59 PM EST Pt notified. She verbalized understanding. Will leave encounter open for when she returns call withupdate tomorrow morning. * Telephone Encounter - Luna Cope MD - 05/21/2023 4:[address] is normal. Labs so far show she is mildly dry. Push fluids. We will call her when urine culture is done. Hold on antibiotics. Call with progress report in am. documented in this encounterMercy [facility]02-20-2024 History of Present illness Narrative* Reef Nadege Olson, RT(R) - 05/21/2023 3:20 PM EST Radiology Service Progress Note DATE OF SERVICE: May 21, 2023 TIME: 3:43 PM PATIENT IDENTITY VERIFICATION COMPLETED USING TWO (2) STANDARD IDENTIFIERS: Name and Date of confirmed by patient verbally. FALL SCREENING: Has the patient had 2 falls in the last year or 1 fall with injury or currently using an Ambulatory Assistive Device (Walker, Cane, Wheelchair, Crutches, etc.)? No PATIENT GENDER DATA: Female. status: : No status: NO. PATIENT RELEVANT IMPLANT DATA REVIEWED: Yes PATIENT PRESENTS WITH AN IMPLANTABLE OR ATTACHED CONSTRUCTION ESTIMATOR: No ALLERGIES: Reviewed and unchanged CONTRAST ALLERGY: NO. EXAM: CT -CONTRAST INDUCED NEPHROPATHY RISK FACTORS: Patient age > 60 years CREATININE: Creatinine Date Value Ref Range Status 05/21/2023 1.06 (H) 0.58 - 0.96 mg/dL Final 02/01/2023 0.94 0.58 - 0.96 mg/dL Final 01/23/2022 0.95 0.58 - 0.96 mg/dL Final Estimated Glomerular Filtration Rate Date Value Ref Range Status 05/21/2023 56 (L) >=60 mL/min/1.73m Final Comment: Estimated Glomerular Filtration Rate (eGFR) is calculated using the 2020 CKD-EPI creatinine equation. This equation utilizes serum creatinine, sex, and age as parameters. The creatinine assay has traceable calibration to isotope dilution- mass spectrometry. Refer to KDIGO guidelines for clinical interpretation. In patients with unstable renal function, e.g. those with acute kidney injury, the eGFRmay not accurately reflect actual GFR. eGFR- Date Value Ref Range Status 04/05/2021 >60 Final P.O.C.T. RESULTS: POC done: Yes, See Lab Tab May 21, 2023 TREATMENT: N/A PERIPHERAL IV DATA: Ambulatory: A peripheral IV was started in the Left forearm with a Angio cath: 22 gauge. RADIOLOGY DEPARTMENT: CT; Exam(s) Completed: Abdomen/Pelvis SIGNATURE: RT Catherine(R) PATIENT NAME: Radha Witt DATE: May 21, 2023 TIME: 3:43 PM [facility] History of Present illness Narrative* Luna Cope MD - 05/21/2023 1:07 PM EST Patient presents with: Abdominal Pain HPI: Patient presents today for office visit for abdominal pain. Complains of aching/burning pain in her left lower abdominal area. Refers to a discomfort more than anything. Points to her LLQ. Tender to touch. Intermittent X 5 days. Denies any urinary symptoms. Denies nausea or vomiting. No appetite changes. Denies flank pain. Denies diarrhea. Denies bloody or black stool. Not really sure that anything triggers the pain. Has not taken anything OTC for it. Episodes last anywhere from a few minutes to a few hours. No discharge or bleeding. Movement does not change. Has not gotten worse since started but not gotten better. No fever or chills. No trauma. Hx of Laparoscopic Colectomy sigmoid colon due diverticulitis. Refers to current pain feeling similar to diverticulitis. MEDICATIONS: Current Outpatient Medications Medication Sig acetaminophen 325 mg-caffeine 40 mg-butalbital 50 mg (FIORICET) per tablet Take 1 tablet by mouth every 6 hours as needed (headache) for up to 30 days. aspirin, enteric coated (ASPIRIN, ENTERIC COATED) 81 mg EC tablet Take 81 mg by mouth once daily. levocetirizine 5 mg tablet Take 5 mg by mouth once daily. acetaminophen (TYLENOL) 325 mg tablet Take 2 tablets by mouth every 4 hours as needed for pain. ZINC ORAL Take 50 mg by mouth once daily. calcium carbonate/vitamin D3 (CALCIUM 600 + D ORAL) Take 1,200 mg by mouth. atorvastatin 10 mg tablet Take 10 mg by mouth once daily. metoprolol succinate XL (TOPROL XL) 50 mg ORAL 24 hr tablet Take 1 tablet by mouth once daily. MULTIVITAMIN TABLET Take one(1) tablet daily. No current facility-administered medications for this visit. 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 Difficult intravenous access 04/03/2021 Diverticulitis of colon (without mention of hemorrhage)(562.11) Essential hypertension, benign on Toprol Female stress incontinence Migraine with aura, without mention of intractable migraine without mention of status migrainosus Nonspecific (abnormal) findings on radiological and other examination of gastrointestinal tract PAST SURGICAL HISTORY Procedure Laterality Date BREAST SURGERY HX BX BREAST W/DEVICE 1ST LESION STEREOTACTIC GUID Right 01/31/2017 Benign microcalcifications and a fibroadenoma COLON SURGERY HX 04/04/2021 LAPAROSCOPIC COLECTOMY SIGMOID COLON W/ COLORECTAL ANASTOMOSIS COLONOSCOPY FLX DX W/COLLJ SPEC WHEN PFRMD 12/20/2006 COLONOSCOPY FLX DX W/COLLJ SPEC WHEN PFRMD 12/20/2016 Colonoscopy COLONOSCOPY FLX DX W/COLLJ SPEC WHEN PFRMD 03/16/2021 PAST SURGICAL HISTORY OF breast biopsies x 2 SKIN BIOPSY HX TONSILLECTOMY HX TONSILLECTOMY PRIMARY/SECONDARY <AGE 14 TOTAL ABDOMINAL HYSTERECT W/WO RMVL TUBE OVARY Hysterectomy, NEO uterine cancer VAGINAL HYSTERECTOMY FAMILY HISTORY Problem Relation Age of Onset Heart Father Hypertension Father Diabetes Father type II Cancer Mother uterine Heart Mother other (Fistula) Maternal Grandmother other (Hemochromatosis) Paternal Uncle Anesthesia Problems No Family History Social History Tobacco Use Smoking status: Never Smokeless tobacco: Never Vaping Use Vaping Use: Never used Substance Use Topics Alcohol use: Yes Comment: rare Drug use: No Reviewed current medications, allergies, past medical history, surgical history, family history andsocial history today. REVIEW OF SYSTEMS All other reviewed and negative other than HPI. VITALS: BP 130/84 Pulse 69 Temp 36.2 C (97.2 F) Ht 175.3 cm (5' 9) Wt 78.9 kg (174 lb) LMP 04/07/2004 SpO2 98% BMI 25.70 kg/m Last 4 Encounter Wt Readings: Date: Wt: 02/13/2023 78.5 kg (173 lb) 10/13/2022 77.7 kg (171 lb 3.2 oz) 09/03/2022 79.8 kg (176 lb) 08/06/2022 78.5 kg (173 lb) PHYSICAL EXAMINATION: General appearance: Well appearing, alert, in no acute distress, well-hydrated, well nourished. Skin: Skin color, texture, turgor normal, no suspicious rashes or lesions Head: Normocephalic, no masses, lesions, tenderness or abnormalitie Lungs: Lungs clear to auscultation. No wheezing, rhonchi, rales Heart: RRR without murmur, gallop, or rubs. No ectopy Abdomen: suprapubic and llq pain. No rebound or guarding. No masses. Normal bowel sounds. ASSESSMENT/PLAN: 1. LLQ pain - ICD9: 789.04, ICD10: R10.32 (primary diagnosis) - r/o recurrent diverticulitis in patient s/p partial colectomy for same Do ct stat. Urine is negative on dip. Red flags for re-assessment reviewed with patient in detail. - follow depending on results. - UA DIP, URINE (POC) - CBC + DIFF - COMP METABOLIC PANEL - URINE CULTURE - CT ABD/PEL W IVCON - IV CONTRAST (RADIOLOGY PROCEDURE) - ENTERIC CONTRAST (RADIOLOGY PROCEDURE) 2. Left lower quadrant abdominal pain - ICD9: 789.04, ICD10: R10.32 - CBC + DIFF - COMP METABOLIC PANEL - URINE CULTURE - CT ABD/PEL W IVCON - IV CONTRAST (RADIOLOGY PROCEDURE) - ENTERIC CONTRAST (RADIOLOGY PROCEDURE) Luna Cope MD documented [facility] History of Present illness Narrative* Crystal Fuentes RN - 05/15/2023 12:04 PM EST [facility] Telephonic Outreach Provider Action/FYI Call placed to the patient. Denies any medical needs at this time. Patient encouraged to call PCP with any medical needs or concerns and the patient agrees to do so.? Had cortisone injection 2 for trigger finger-that is helping. Contacted for: Routine Telephonic Outreach Contact made with patient: Yes Patient identified by name and date of . Discussed care with patient Are you experiencing any new or worsening symptoms you need to talk about today? No Disease Specific Do you check your blood pressure at home? Yes, Enter readings: 115/70 Do you have new or worsening shortness of breath with activity? No Based on assessment technician, the following disposition is advised: No symptoms or symptoms present, not severe. Routed to: No Action Needed FERNANDA Education Provided this Outreach: No . Crystal Fuentes RN May 15, 2023 12:07 PM documented in [facility] encounter[facility]02-[facility]-2024 Miscellaneous Notes* Telephone Encounter - Kenzie Calderon Ma - 05/06/2023 2:26 PM EST Case message sent to cancel surgery and all post op appointments have been cancelled. * Telephone Encounter - Ngoc Steel LPN - 05/06/2023 1:37 PM EST Patient called to cancel surgery to be done by Dr Valadez on 05/16/23 for trigger finger. Please cancel appointment and follow up appointments on 05/27/23 and 06/24/23. Patient did not want to reschedule. Thank you. Radha# [phone] Ngoc Steel LPN May 06, 2023 1:39 PM documented in this encounterMer[facility]12-[facility]23 History of Present illness Narrative* Mp Valadez MD - 03/18/2023 1:49 PM EST Mp Valadez MD Department of Orthopaedics Orthopaedics [address] [place], [place] [address] [facility] [address] Dept: [phone] Dept March 18, 2023 CHIEF COMPLAINT: New and Pain of the Right Hand HPI Patient here today for right middle finger clicking and catching x 8 months. She did have an oral steroid from her PCP office about 6 months ago and it did help. She is left hand dominant. Retired. X-ray 09/03/2022. ASSESSMENT: M65.331 Trigger middle finger of right hand (primary encounter diagnosis) M79.641 Pain of right hand PLAN: We reviewed the risks, benefits, alternatives and potential complications with op and non-op treatments. She would like to get her trigger taken care of. FOLLOW UP INSTRUCTIONS: We'll schedule OBJECTIVE: Ms. Radha Witt is a pleasant 73 year old in no apparent distress. Gen:LMP 04/07/2004 nl development, non obese, no deformities ENT: Normocephalic, normal hearing, moist mucosa CV: Pulses:Radial= 2+ and symmetric, capillary refill < 2 secs, no peripheral edema/varicosities Skin: no rash, bruising or lesions. Good turgor. Psych: cooperative and appropriate, alert and oriented x 3, good mood and affect. Musculoskeletal: TTP at the A1 of the middle finger on the right. Clicking and catching of the digit. NV exam intact. 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 Difficult intravenous access 04/03/2021 Diverticulitis of colon (without mention of hemorrhage)(562.11) Essential hypertension, benign on Toprol Female stress incontinence Migraine with aura, without mention of intractable migraine without mention of status migrainosus Nonspecific (abnormal) findings on radiological and other examination of gastrointestinal tract Past Surgical History: PAST SURGICAL HISTORY Procedure Laterality Date BREAST SURGERY HX BX BREAST W/DEVICE 1ST LESION STEREOTACTIC GUID Right 01/31/2017 Benign microcalcifications and a fibroadenoma COLON SURGERY HX 04/04/2021 LAPAROSCOPIC COLECTOMY SIGMOID COLON W/ COLORECTAL ANASTOMOSIS COLONOSCOPY FLX DX W/COLLJ SPEC WHEN PFRMD 12/20/2006 COLONOSCOPY FLX DX W/COLLJ SPEC WHEN PFRMD 12/20/2016 Colonoscopy COLONOSCOPY FLX DX W/COLLJ SPEC WHEN PFRMD 03/16/2021 PAST SURGICAL HISTORY OF breast biopsies x 2 SKIN BIOPSY HX TONSILLECTOMY HX TONSILLECTOMY PRIMARY/SECONDARY <AGE 14 TOTAL ABDOMINAL HYSTERECT W/WO RMVL TUBE OVARY Hysterectomy, NEO uterine cancer VAGINAL HYSTERECTOMY Family History: FAMILY HISTORY Problem Relation Age of Onset Heart Father Hypertension Father Diabetes Father type II Cancer Mother uterine Heart Mother other (Fistula) Maternal Grandmother other (Hemochromatosis) Paternal Uncle Anesthesia Problems No Family History Social History: Social History Tobacco Use Smoking status: Never Smokeless tobacco: Never Vaping Use Vaping Use: Never used Substance Use Topics Alcohol use: Yes Comment: rare Drug use: No Medications: Current Outpatient Medications Medication Sig aspirin, enteric coated (ASPIRIN, ENTERIC COATED) 81 mg EC tablet Take 81 mg by mouth once daily. levocetirizine 5 mg tablet Take 5 mg by mouth once daily. ZINC ORAL Take 50 mg by mouth once daily. calcium carbonate/vitamin D3 (CALCIUM 600 + D ORAL) Take 1,200 mg by mouth. atorvastatin 10 mg tablet Take 10 mg by mouth once daily. metoprolol succinate XL (TOPROL XL) 50 mg ORAL 24 hr tablet Take 1 tablet by mouth once daily. MULTIVITAMIN TABLET Take one(1) tablet daily. acetaminophen 325 mg-caffeine 40 mg-butalbital 50 mg (FIORICET) per tablet Take 1 tablet by mouth every 6 hours as needed (headache). acetaminophen (TYLENOL) 325 mg tablet Take 2 tablets by mouth every 4 hours as needed for pain. No current facility-administered medications for this visit. Allergies: Adhesive In Bandaids [Other] and Tetracyclines ROS: General (negative for fatigue, malaise, weight loss/gain) HEENT (negative for headache, earache, recent vision changes, sinus pain, sore throat) Respiratory (no recent shortness of breath, hemoptysis) CV (negative for chest tightness, palpitations) Musculoskeletal (see HPI) Psych (no depression, anxiety) REFERRING PHYSICIAN: Consultation requested by Dr. Cope for an opinion regarding trigger finger. My final recommendations will be communicated back to the requesting physician by way of shared Medical record or letter torequesting physician via [place] mail. Luna Cope [address] [facility] [address] Mp Valadez MD documented in this encounterMer[facility]12-05-2023 History of Present illness Narrative* Crystal Fuentes RN - 03/05/2023 9:53 AM EST [facility] Telephonic Outreach Provider Action/FYI Call placed to the patient to complete home monitoring questionnaire. Left voicemail for the patient and encouraged them to contact PCP with any medical needs or concerns. Contacted for: Routine Telephonic Outreach Contact made with patient: No, left message. Crystal Fuentes RN March 05, 2023 9:55 AM CD Telephonic Outreach Provider Action/FYI Call placed to the patient. Denies any medical needs at this time. Patient encouraged to call PCP with any medical needs or concerns and the patient agrees to do so.? Contacted for: Routine Telephonic Outreach Contact made with patient: Yes Patient identified by name and date of . Discussed care with patient Are you experiencing any new or worsening symptoms you need to talk about today? No Disease Specific Do you check your blood pressure at home? Yes, Enter readings: 125/70 Do you have new or worsening shortness of breath with activity? No Based on assessment technician, the following disposition is advised: No symptoms or symptoms present, not severe. Routed to: No Action Needed FERNANDA Education Provided this Outreach: No . Crystal Fuentes RN March 05, 2023 1:57 PM documented in this encounterMer[facility]11-15-2023 History of Present illness Narrative* Luna Cope MD - 02/13/2023 4:47 PM EST Patient presents with: Recheck HPI: Patient presents today for office visit for follow up. Still having issue with her finger. Was improved with steroids but came back again. Xrays negative. No swelling or redness or warmth. Saw Cardiology recently. Gave her the ok to see them back in one year. Last echo was 2019 No chest pain or shortness of breath./ No edema. Her has been ill. She is feeling fatigued related to caring for him. Feels like she has support at home. No myalgias. Has had itching the last few weeks. Changed her body wash. Has quit using the body wash. Had recent labs. Used strengthening nail czech. Discussed that stress may be an issues. Red flags for re-assessment reviewed with patient in detail. - Call if symptoms worsen at all or if not better in one to two weeks Component Latest Ref Rng & Units 02/01/2023 WBC 3.70 - 11.00 k/uL 6.01 RBC 3.90 - 5.20 m/uL 5.16 Hemoglobin 11.5 - 15.5 g/dL 15.7 (H) Hematocrit 36.0 - 46.0 % 46.5 (H) MCV 80.0 - 100.0 fL 90.1 MCH 26.0 - 34.0 pg 30.4 MCHC 30.5 - 36.0 g/dL 33.8 RDW-CV 11.5 - 15.0 % 13.2 Platelet Count 150 - 400 k/uL 210 MPV 9.0 - 12.7 fL 9.5 Neut% % 50.8 Abs Neut (ANC) 1.45 - 7.50 k/uL 3.06 Lymph% % 37.8 Abs Lymph 1.00 - 4.00 k/uL 2.27 Swift% % 8.5 Abs Swift <0.87 k/uL 0.51 Eosin% % 2.2 Abs Eosin <0.46 k/uL 0.13 Baso% % 0.5 Abs Baso <0.11 k/uL 0.03 Immature Gran % % 0.2 IMMATURE GRANS (ABS) <0.10 k/uL <0.03 NRBC /100 WBC 0.0 Absolute nRBC <0.01 k/uL <0.01 DTYPE Auto Protein, Total 6.3 - 8.0 g/dL 6.8 Albumin 3.9 - 4.9 g/dL 4.3 Calcium 8.5 - 10.2 mg/dL 9.6 Bilirubin, Total 0.2 - 1.3 mg/dL 0.5 Alkaline Phosphatase 34 - 123 U/L 94 AST 13 - 35 U/L 21 ALT 7 - 38 U/L 18 Glucose 74 - 99 mg/dL 84 BUN 7 - 21 mg/dL 17 Creatinine 0.58 - 0.96 mg/dL 0.94 Sodium 136 - 144 mmol/L 139 Potassium 3.7 - 5.1 mmol/L 4.1 Chloride 97 - 105 mmol/L 106 (H) CO2 22 - 30 mmol/L 21 (L) Anion Gap 9 - 18 mmol/L 12 eGFR >=60 mL/min/1.73m 65 Cholesterol, Total <200 mg/dL 136 Triglyceride <150 mg/dL 155 (H) HDL Cholesterol >39 mg/dL 46 Non HDL Cholesterol <130 mg/dL 90 Fasting Time hrs 12 VLDL Cholesterol <30 mg/dL 31 (H) TC:HDL Ratio <5.10 2.96 LDL Cholesterol <100 mg/dL 59 LDL:HDL Ratio <2.54 1.28 EDICATIONS: Current Outpatient Medications Medication Sig acetaminophen 325 mg-caffeine 40 mg-butalbital 50 mg (FIORICET) per tablet Take 1 tablet by mouth every 6 hours as needed (headache). aspirin, enteric coated (ASPIRIN, ENTERIC COATED) 81 mg EC tablet Take 81 mg by mouth once daily. acetaminophen (TYLENOL) 325 mg tablet Take 2 tablets by mouth every 4 hours as needed for pain. ZINC ORAL Take 50 mg by mouth once daily. calcium carbonate/vitamin D3 (CALCIUM 600 + D ORAL) Take 1,200 mg by mouth. atorvastatin 10 mg tablet Take 10 mg by mouth once daily. metoprolol succinate XL (TOPROL XL) 50 mg ORAL 24 hr tablet Take 1 tablet by mouth once daily. MULTIVITAMIN TABLET Take one(1) tablet daily. levocetirizine 5 mg tablet Take 5 mg by mouth once daily. (Patient not taking: Reported on 02/13/2023) No current facility-administered medications for this visit. 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 Difficult intravenous access 04/03/2021 Diverticulitis of colon (without mention of hemorrhage)(562.11) Essential hypertension, benign on Toprol Female stress incontinence Migraine with aura, without mention of intractable migraine without mention of status migrainosus Nonspecific (abnormal) findings on radiological and other examination of gastrointestinal tract PAST SURGICAL HISTORY Procedure Laterality Date BREAST SURGERY HX BX BREAST W/DEVICE 1ST LESION STEREOTACTIC GUID Right 01/31/2017 Benign microcalcifications and a fibroadenoma COLON SURGERY HX 04/04/2021 LAPAROSCOPIC COLECTOMY SIGMOID COLON W/ COLORECTAL ANASTOMOSIS COLONOSCOPY FLX DX W/COLLJ SPEC WHEN PFRMD 12/20/2006 COLONOSCOPY FLX DX W/COLLJ SPEC WHEN PFRMD 12/20/2016 Colonoscopy COLONOSCOPY FLX DX W/COLLJ SPEC WHEN PFRMD 03/16/2021 PAST SURGICAL HISTORY OF breast biopsies x 2 SKIN BIOPSY HX TONSILLECTOMY HX TONSILLECTOMY PRIMARY/SECONDARY <AGE 14 TOTAL ABDOMINAL HYSTERECT W/WO RMVL TUBE OVARY Hysterectomy, NEO uterine cancer VAGINAL HYSTERECTOMY FAMILY HISTORY Problem Relation Age of Onset Heart Father Hypertension Father Diabetes Father type II Cancer Mother uterine Heart Mother other (Fistula) Maternal Grandmother other (Hemochromatosis) Paternal Uncle Anesthesia Problems No Family History Social History Tobacco Use Smoking status: Never Smokeless tobacco: Never Vaping Use Vaping Use: Never used Substance Use Topics Alcohol use: Yes Comment: rare Drug use: No Reviewed current medications, allergies, past medical history, surgical history, family history andsocial history today. REVIEW OF SYSTEMS Using debrox due to ears. Wants her ears checked. All other reviewed and negative other than HPI. HEALTH MAINTENANCE: Reviewed health maintenance issues today and recommended the following in detail. BP Controlled (<130/80) Never done RSV Vaccine(1 - 1-dose 60+ series) Never done Pap Testing -has routine follow up with space engineer. Sees them regularly. Covid-19 Vaccine(2022- season) due on 11/30/2022 VITALS: BP 120/72 Pulse 71 Resp 12 Wt 78.5 kg (173 lb) LMP 04/07/2004 SpO2 99% BMI 25.55 kg/m Last 4 Encounter Wt Readings: Date: Wt: 02/13/2023 78.5 kg (173 lb) 10/13/2022 77.7 kg (171 lb 3.2 oz) 09/03/2022 79.8 kg (176 lb) 08/06/2022 78.5 kg (173 lb) PHYSICAL EXAMINATION: General appearance: Well appearing, alert, in no acute distress, well-hydrated, well nourished. Skin: Skin color, texture, turgor normal, no suspicious rashes or lesions Head: Normocephalic, no masses, lesions, tenderness or abnormalities Eyes: Anicteric sclera. Pupils are equally round and reactive to light. Extraocular movements are intact. Ears: External ears normal, canals clear Lungs: Lungs clear to auscultation. No wheezing, rhonchi, rales Heart: RRR without murmur, gallop, or rubs. No ectopy Abdomen: Normal abdominal exam, Abdomen soft, non-tender. Bowel sounds normal. No masses, organomegaly Extremities: No deformities, edema, skin discoloration, clubbing or cyanosis. Good capillary refill. ASSESSMENT/PLAN: 1. Essential hypertension, benign - ICD9: 401.1, ICD10: I10 (primary diagnosis) - Controlled - Continue current medications - Recommend regular aerobic exercise 2. Other hyperlipidemia - ICD9: 272.4, ICD10: E78.49 - stable. 3. MVP (mitral valve prolapse) - ICD9: 424.0, ICD10: I34.1 - stable. 4. Pain of right hand - ICD9: 729.5, ICD10: M79.641 See ortho. - CONSULT TO ORTHOPAEDICS 5. Need for vaccination - ICD9: V05.9, ICD10: Z23 - PFIZER-BIONTECH COVID-19 VACCINE (2022- [place]) AGE 12+ YR Luna Cope MD documented in this encounterMer[facility]11-14-[facility]23 History of Present illness Narrative* Crystal Fuentes RN - 02/12/2023 9:24 AM EST [facility] Telephonic Outreach Provider Action/FYI HTN Call placed to the patient to complete home monitoring questionnaire. Left voicemail for the patient and encouraged them to contact PCP with any medical needs or concerns. Contacted for: Routine Telephonic Outreach Contact made with patient: No, left message. Crystal Fuentes RN February 12, 2023 9:24 AM [facility] Telephonic Outreach Provider Action/FYI HTN Falls/ADLs/Goals updated Call placed to the patient. Denies any medical needs at this time. Patient encouraged to call PCP with any medical needs or concerns and the patient agrees to do so.? Contacted for: Goals/Falls/ADL Update Contact made with patient: Yes Patient identified by name and date of . Discussed care with: patient Goal Setting I would like to take some time today to discuss your personal health goals. Yes, patient has goals. Capture the goal the patient wants to accomplish: BP < 140/90. Does the goal align with programs offered [facility]? Yes Chronic Disease Management patient goals yes: Improved nutrition / better eating habits Most people know what to do to become healthier, yet struggle to put it into action on their own, It can be hard to maintain a healthy lifestyle, especially when life is so stressful. Can we connect you with a [facility] [employer]ol[employer] to find a program that could help you meet your goals? No Falls completed:Yes ADL's updated: Yes Are you experiencing any new or worsening symptoms you need to talk about today? No Disease Specific Do you check your blood pressure at home? Yes, Enter readings: 120/65 Do you have new or worsening shortness of breath with activity? No Based on assessment technician, the following disposition is advised: No symptoms or symptoms present, not severe. Routed to: No Action Needed FERNANDA Education Provided this Outreach: No . Crystal Fuentes RN February 12, 2023 12:08 PM documented in this encounterMercy [facility] Hospital10-24-2023 History of Present illness Narrative* Crystal Fuentes RN - 01/22/2023 11:23 AM EDT [facility] Telephonic Outreach Provider Action/FYI Call placed to the patient. Denies any medical needs at this time and reviewed H@H# with the patient and patient encouraged to call H@H# or PCP with any medical needs or concerns and patient agrees to do so. Contacted for: Routine Telephonic Outreach Contact made with patient: Yes Patient identified by name and date of . Discussed care with patient Are you experiencing any new or worsening symptoms you need to talk about today? No Disease Specific Do you check your blood pressure at home? Yes, Enter readings: 120/80 Do you have new or worsening shortness of breath with activity? No Based on assessment technician, the following disposition is advised: No symptoms or symptoms present, not severe. Routed to: No Action Needed FERNANDA Education Provided this Outreach: No . Crystal Fuentes RN January 22, 2023 11:24 AM documented in this encounterMer[facility]10-[facility]23 History of Present illness Narrative* Crystal Fuentes RN - 01/01/2023 8:26 AM EDT [facility] Telephonic Outreach Provider Action/FYI Call placed to the patient to complete home monitoring questionnaire. Left voicemail for the patient and encouraged them to contact PCP with any medical needs or concerns. Contacted for: Routine Telephonic Outreach Contact made with patient: No, left message. Crystal Fuentes RN January 01, 2023 8:27 AM [facility] Telephonic Outreach Provider Action/FYI Call placed to the patient. Denies any medical needs at this time and reviewed H@H# with the patient and patient encouraged to call H@H# or PCP with any medical needs or concerns and patient agrees to do so. Contacted for: Routine Telephonic Outreach Contact made with patient: Yes Patient identified by name and date of . Discussed care with patient Are you experiencing any new or worsening symptoms you need to talk about today? No Disease Specific Do you check your blood pressure at home? Yes, Enter readings: 120/75 Do you have new or worsening shortness of breath with activity? No Based on assessment technician, the following disposition is advised: No symptoms or symptoms present, not severe. Routed to: No Action Needed FERNANDA Education Provided this Outreach: No . Crystal Fuentes RN January 01, 2023 9:27 PM documented in this encounterMercy [facility] Hospital08-25-2023 Miscellaneous Notes* Telephone Encounter - Elisha Wagner - 11/23/2022 10:50 AM EDT Patient has been identified by name and date of : Yes Last office visit in this department: 09/03/2022 RX INSTRUCTIONS: Patient aware RX will be sent to pharmacy. No need to notify patient. Patient phones requesting refills as follows: Requested Prescriptions Pending Prescriptions Disp Refills acetaminophen 325 mg-caffeine 40 mg-butalbital 50 mg (FIORICET) per tablet 20 tablet 0 Sig: Take 1 tablet by mouth every 6 hours as needed (headache). Please review and advise. Elisha Wagner documented in this encounterMercy [facility] Hospital07-15-2023 History of Present illness Narrative* Thomas Ely PA - 10/13/2022 12:04 PM EDT Images from the original note were not included. This note was created using ABA Englishter. Subjective Radha Witt is a 72 year old female. HPI 72-year-old female presents for possible insect bite/rash. Patient states that she knows she had a red spot on the left side of her back a few days ago. She states it was very itchy. She now has another 1 on her right lower back and her right ear. She wants to make sure is not shingles. She denies any pain in the area. No drainage. No blistering or abscess. She denies remembering being bit byanything. She has not really been outside. She never noticed a tick on her. No fevers. States the areas are still slightly itchy, but not really bothersome. No other complaints. 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 Difficult intravenous access 04/03/2021 Diverticulitis of colon (without mention of hemorrhage)(562.11) Essential hypertension, benign on Toprol Female stress incontinence Migraine with aura, without mention of intractable migraine without mention of status migrainosus Nonspecific (abnormal) findings on radiological and other examination of gastrointestinal tract PAST SURGICAL HISTORY Procedure Laterality Date BREAST SURGERY HX BX BREAST W/DEVICE 1ST LESION STEREOTACTIC GUID Right 01/31/2017 Benign microcalcifications and a fibroadenoma COLON SURGERY HX 04/04/2021 LAPAROSCOPIC COLECTOMY SIGMOID COLON W/ COLORECTAL ANASTOMOSIS COLONOSCOPY FLX DX W/COLLJ SPEC WHEN PFRMD 12/20/2006 COLONOSCOPY FLX DX W/COLLJ SPEC WHEN PFRMD 12/20/2016 Colonoscopy COLONOSCOPY FLX DX W/COLLJ SPEC WHEN PFRMD 03/16/2021 PAST SURGICAL HISTORY OF breast biopsies x 2 SKIN BIOPSY HX TONSILLECTOMY HX TONSILLECTOMY PRIMARY/SECONDARY <AGE 14 TOTAL ABDOMINAL HYSTERECT W/WO RMVL TUBE OVARY Hysterectomy, NEO uterine cancer VAGINAL HYSTERECTOMY ALLERGIES Adhesive In Bandaids [Other] and Tetracyclines MEDICATIONS acetaminophen 325 mg-caffeine 40 mg-butalbital 50 mg (FIORICET) per tablet Take 1 tablet by mouth every 6 hours as needed (headache). aspirin, enteric coated (ASPIRIN, ENTERIC COATED) 81 mg EC tablet Take 81 mg by mouth once daily. levocetirizine 5 mg tablet Take 5 mg by mouth once daily. acetaminophen (TYLENOL) 325 mg tablet Take 2 tablets by mouth every 4 hours as needed for pain. ZINC ORAL Take 50 mg by mouth once daily. calcium carbonate/vitamin D3 (CALCIUM 600 + D ORAL) Take 1,200 mg by mouth. atorvastatin 10 mg tablet Take 10 mg by mouth once daily. metoprolol succinate XL (TOPROL XL) 50 mg ORAL 24 hr tablet Take 1 tablet by mouth once daily. MULTIVITAMIN TABLET Take one(1) tablet daily. mupirocin (BACTROBAN) 2 % ointment Apply to affected area three times daily for 7 days. FAMILY HISTORY Problem Relation Age of Onset Heart Father Hypertension Father Diabetes Father type II Cancer Mother uterine Heart Mother other (Fistula) Maternal Grandmother other (Hemochromatosis) Paternal Uncle Anesthesia Problems No Family History Social History Tobacco Use Smoking status: Never Smokeless tobacco: Never Vaping Use Vaping Use: Never used Substance Use Topics Alcohol use: Yes Comment: rare Drug use: No Review of Systems Constitutional: Negative for chills and fever. HENT: Negative for congestion, ear pain and sore throat. Respiratory: Negative for cough and shortness of breath. Cardiovascular: Negative for chest pain. Gastrointestinal: Negative for diarrhea and vomiting. Skin: Positive for color change and rash. Objective BP 126/82 Pulse 65 Temp 36.1 C (97 F) Resp 21 Wt 77.7 kg (171 lb 3.2 oz) LMP 04/07/2004 SpO2 98% BMI 25.28 kg/m Physical Exam Vitals and nursing note reviewed. Constitutional: General: She is not in acute distress. Appearance: Normal appearance. She is not toxic-appearing. HENT: Right Ear: Tympanic membrane and ear canal normal. Left Ear: Tympanic membrane and ear canal normal. Ears: Comments: Small area of erythema behind right ear. No fluctuance or abscess. Small pinpoint center appears consistent with an insect bite. No erythema migrans rash. No vesicular lesions. TM normal. No mastoid tenderness or swelling. Cardiovascular: Rate and Rhythm: Normal rate and regular rhythm. Pulmonary: Effort: Pulmonary effort is normal. Breath sounds: Normal breath sounds. Skin: Findings: Rash present. Comments: 2 areas of erythema/rash noted on back. Appears consistent with insect bites. No vesicular lesions. No erythema migrans rash. No significant swelling. No signs of infection. No abscess or fluctuance. Neurological: Mental Status: She is alert. Assessment and Plan ASSESSMENT/PLAN: 1. Insect bite of back, unspecified laterality, initial encounter - ICD9: 911.4, E906.4, ICD10: S20.469A (primary diagnosis) -No signs of erythema migrans rash on exam. No signs of cellulitis or infection at this time. -Rx for mupirocin ointment. -Recommend Benadryl and Claritin for itching. -No vesicular lesions or signs/symptoms concerning for shingles. 2. Rash - ICD9: 782.1, ICD10: R21 -See above Diagnosis and treatment plan were discussed and questions were answered to the patient's satisfaction. Pt acknowledged understanding of concepts and follow up plan. Specific signs and symptoms that would indicate the need for higher level of care were discussed in detail warranting prompt ER evaluation. WHITLEY Antonio\ documented in this encounterMer[facility]07-06-2023 History of Present illness Narrative* Crystal Fuentes RN - 10/04/2022 11:06 AM EDT [facility] Telephonic Outreach Provider Action/FYI Call placed to the patient spoke to son. Denies any medical needs at this time and reviewed H@H# with the patient's son and encouraged to call H@H or PCP with any medical needs or concerns and patient's son agrees to do so.? Contacted for: Routine Telephonic Outreach Contact made with patient: Yes Patient identified by name and date of . Discussed care with son Are you experiencing any new or worsening symptoms you need to talk about today? No Disease Specific Do you check your blood pressure at home? Yes, Enter readings: 110/70 Do you have new or worsening shortness of breath with activity? No Based on assessment technician, the following disposition is advised: No symptoms or symptoms present, not severe. Routed to: No Action Needed FERNANDA Education Provided this Outreach: No . Crystal Fuentes RN October 04, 2022 11:07 AM documented in this encounterMercy [facility] Hospital06-05-2023 History of Present illness Narrative* Maria T Walker RT(R) - 09/03/2022 7:20 PM EDT Radiology Service Progress Note PATIENT NAME: Radha Witt DATE OF SERVICE: September 03, 2022 TIME: 7:28 PM PATIENT IDENTITY VERIFICATION COMPLETED USING TWO (2) IDENTIFIERS: Name and Date of confirmedby patient verbally. FALL SCREENING: Has the patient had 2 falls in the last year or 1 fall with injury or currently using an Ambulatory Assistive Device (Walker, Cane, Wheelchair, Crutches, etc.)? No PATIENT GENDER DATA: Female. status: : No status: NO. PATIENT RELEVANT IMPLANT DATA REVIEWED: Not Applicable RADIOLOGY DEPARTMENT: General X-ray: Exam(s) Completed: Upper Extremity X- Ray(s): Hand, right PERIPHERAL IV DATA: Not applicable SIGNED BY: RT Galdino(R) September 03, 2022 7:28 PM documented in this encounterMercy Memorial Hospital06-05-2023 History of Present illness Narrative* Luna Cope MD - 09/03/2022 6:58 PM EDT Patient presents with: Finger Pain HPI: Patient presents today for office visit for acute visit. Patient complains of: pain in right middle finger. Duration: on and off for about a month or so-was noticeable at last visit on 08/06 but getting betterso didn't mention then Associated Symptoms: unable to fully extend or make a fist Aggravating factors:sometimes when sleeping has to have arm in just the right position or will ache Things that improve symptoms :postioning seems to be the only thing she has noticed Recalls no injury. No visible swelling. Doesn't feel any catch like a trigger finger. No redness or warmth. No trauma No numbness. No issues further up the shoulder. Has not done anything for it. Was avoiding nsaids MEDICATIONS: Current Outpatient Medications Medication Sig acetaminophen 325 mg-caffeine 40 mg-butalbital 50 mg (FIORICET) per tablet Take 1 tablet by mouth every 6 hours as needed (headache). aspirin, enteric coated (ASPIRIN, ENTERIC COATED) 81 mg EC tablet Take 81 mg by mouth once daily. levocetirizine 5 mg tablet Take 5 mg by mouth once daily. acetaminophen (TYLENOL) 325 mg tablet Take 2 tablets by mouth every 4 hours as needed for pain. ZINC ORAL Take 50 mg by mouth once daily. calcium carbonate/vitamin D3 (CALCIUM 600 + D ORAL) Take 1,200 mg by mouth. atorvastatin 10 mg tablet Take 10 mg by mouth once daily. metoprolol succinate XL (TOPROL XL) 50 mg ORAL 24 hr tablet Take 1 tablet by mouth once daily. MULTIVITAMIN TABLET Take one(1) tablet daily. No current facility-administered medications for this visit. 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 Difficult intravenous access 04/03/2021 Diverticulitis of colon (without mention of hemorrhage)(562.11) Essential hypertension, benign on Toprol Female stress incontinence Migraine with aura, without mention of intractable migraine without mention of status migrainosus Nonspecific (abnormal) findings on radiological and other examination of gastrointestinal tract PAST SURGICAL HISTORY Procedure Laterality Date BREAST SURGERY HX BX BREAST W/DEVICE 1ST LESION STEREOTACTIC GUID Right 01/31/2017 Benign microcalcifications and a fibroadenoma COLON SURGERY HX 04/04/2021 LAPAROSCOPIC COLECTOMY SIGMOID COLON W/ COLORECTAL ANASTOMOSIS COLONOSCOPY FLX DX W/COLLJ SPEC WHEN PFRMD 12/20/2006 COLONOSCOPY FLX DX W/COLLJ SPEC WHEN PFRMD 12/20/2016 Colonoscopy COLONOSCOPY FLX DX W/COLLJ SPEC WHEN PFRMD 03/16/2021 PAST SURGICAL HISTORY OF breast biopsies x 2 SKIN BIOPSY HX TONSILLECTOMY HX TONSILLECTOMY PRIMARY/SECONDARY <AGE 14 TOTAL ABDOMINAL HYSTERECT W/WO RMVL TUBE OVARY Hysterectomy, NEO uterine cancer VAGINAL HYSTERECTOMY FAMILY HISTORY Problem Relation Age of Onset Heart Father Hypertension Father Diabetes Father type II Cancer Mother uterine Heart Mother other (Fistula) Maternal Grandmother other (Hemochromatosis) Paternal Uncle Anesthesia Problems No Family History Social History Tobacco Use Smoking status: Never Smokeless tobacco: Never Vaping Use Vaping Use: Never used Substance Use Topics Alcohol use: Yes Comment: rare Drug use: No Reviewed current medications, allergies, past medical history, surgical history, family history andsocial history today. REVIEW OF SYSTEMS All other reviewed and negative other than HPI. VITALS: BP 110/72 Pulse 68 Wt 79.8 kg (176 lb) LMP 04/07/2004 BMI 25.99 kg/m Last 4 Encounter Wt Readings: Date: Wt: 08/06/2022 78.5 kg (173 lb) 02/05/2022 74.4 kg (164 lb) 07/31/2021 69.4 kg (153 lb) 07/21/2021 68.9 kg (152 lb) PHYSICAL EXAMINATION: General appearance: Well appearing, alert, in no acute distress, well-hydrated, well nourished. Skin: Skin color, texture, turgor normal, no suspicious rashes or lesions Extremities: No deformities, edema, skin discoloration, clubbing or cyanosis. Good capillary refill. , no redness or warmth. No palpable masses. Tender along the course of the middle finger from the mip joint. Musculoskeletal: No joint swelling, deformity, or tenderness Peripheral pulses: Normal Neuro: Negative. ASSESSMENT/PLAN: 1. Pain of right hand - ICD9: 729.5, ICD10: M79.641 Discussed risks and benefits of new medication with the patient. Advised them to call if any side effects or questions. Red flags for re-assessment reviewed with patient in detail. Call if symptoms worsen at all or if not better in one to two weeks Reviewed diagnosis and treatment options in detail. Questions were answered. Patient expressed understanding of treatment plan. - consider ortho - XR HAND GENERAL 3V PA/LAT/OBL RIGHT - PREDNISONE 20 MG TABLET Luna Cope MD documented in this encounterMercy [facility] Hospital05-19-2023 Miscellaneous Notes* Telephone Encounter - Asiya Fabian LPN - 08/17/2022 3:26 PM EDT Patient calling asking for her mamm results please. Please advise 08/16/2022 7:57 AM - Radiology, Oru In Impression IMPRESSION: BENIGN FINDING There is no mammographic evidence of malignancy. A 1 year screening mammogram is recommended. Olga freedman/oanh:08/16/2022 07:56:34 Bundler(s): RT Saud(R)(M), [facility] letter sent: Normal over 40 Mammogram BI-RADS: 2 Benign finding Multiple national specialty organizations have released breast cancer screening guidelines for women at average risk for developing breast cancer - guidelines that are based on both evidence and opinion, yet differ on when to start and how often to screen for breast cancer. With representation from Breast Imaging, Internal Medicine, Women's Health, Family Medicine, and Medical/Surgical Oncology, the [facility] has carefully reviewed the data and reached the following consensus: 1) All women should engage in shared decision-making with their providers to decide when to start and how often to screen; 2) All women should have the opportunity to start screening mammography at age 40; 3) For women ages 45-55, we recommend annual screening mammograms; 4) For women ages 55 and over, we support both the transition from an annual to a biennial interval if this aligns more with patient's values and preferences, or continuation with annual screening; 5) All women should discuss with their providers when to stop screening mammograms. Integrity Director: Oanh Transcribe Date/Time: Aug 15 2022 2:02P Dictated by: OLGA CHAMBERS MD This examination was interpreted and the report reviewed and electronically signed by: OLGA CHAMBERS MD on Aug 16 2022 7:56AM EST Results-Findings * * *Final Report* * * DATE OF EXAM: Aug 15 2022 2:22PM WRW [id number] - [facility] SCREENING W QUE / PROCEDURE REASON: Encounter for screening mammogram for malignant neoplasm of breast * * * * Physician Interpretation * * * * RESULT: #[id number] - [facility] SCREENING W QUE BILATERAL DIGITAL SCREENING MAMMOGRAM TOMOSYNTHESIS WITH CAD: 08/15/2022 HISTORY: Encounter For Screening Mammogram For Malignant Neoplasm Of Breast /Screening Mammogram with QUE - patient reports NO breast symptoms /priors available for comparison. RESULT: TECHNIQUE: The study was acquired using full field digital technology and interpreted from soft copy. Digital Breast Tomosynthesis (DBT) images were obtained and used to assist in the interpretation of this examination. Current study was also evaluated with a Computer Aided Detection (CAD). Comparison is made to exams dated: 08/11/2021 mammogram, 08/10/2020 mammogram, 04/29/2019 mammogram - [facility], 08/29/2018 mammogram - [facility], and 02/04/2018 mammogram - [facility]. The tissue of both breasts is heterogeneously dense. This may lower the sensitivity of mammography. There are benign post operative findings and a biopsy clip in the right breast. There also are benign post operative findings in the left breast. No significant masses, calcifications, or other findings are seen in either breast. There has been no significant interval change. documented in this encounterMercy Memorial Hospital05-17-2023 History of Present illness Narrative* Chayito Balderas Mammo Tech - 08/15/2022 1:50 PM EDT Radiology Service Progress Note PATIENT NAME: Radha Witt DATE OF SERVICE: August 15, 2022 TIME: 1:59 PM PATIENT IDENTITY VERIFICATION COMPLETED USING TWO (2) IDENTIFIERS: Name and Date of confirmedby patient verbally. FALL SCREENING: Has the patient had 2 falls in the last year or 1 fall with injury or currently using an Ambulatory Assistive Device (Walker, Cane, Wheelchair, Crutches, etc.)? No PATIENT GENDER DATA: Female. status: : No status: NO. PATIENT RELEVANT IMPLANT DATA REVIEWED: Not Applicable RADIOLOGY DEPARTMENT: Biopsy and Mammography PERIPHERAL IV DATA: Not applicable SIGNED BY: Yadira Galan August 15, 2022 1:59 PM documented in this encounterMercy Memorial Hospital05-17-2023 History of Present illness Narrative* Crystal Fuentes RN - 08/15/2022 12:42 PM EDT [facility] Telephonic Outreach Provider Action/FYI Call placed to the patient. Denies any medical needs at this time and reviewed H@H# with the patient and encouraged to call H@H or PCP with any medical needs or concerns and patient agrees to do so Contacted for: Routine Telephonic Outreach Contact made with patient: Yes Patient identified by name and date of . Discussed care with patient Are you experiencing any new or worsening symptoms you need to talk about today? No Disease Specific Do you check your blood pressure at home? Yes, Enter readings: 115/65 Do you have new or worsening shortness of breath with activity? No Based on assessment technician, the following disposition is advised: No symptoms or symptoms present, not severe. Routed to: No Action Needed FERNANDA Education Provided this Outreach: No . Crystal Fuentes RN August 15, 2022 12:43 PM documented in this encounterMercy Memorial Hospital03-23-2023 History of Present illness Narrative* Crystal Fuentes RN - 06/21/2022 12:51 PM EDT [facility] TELEPHONIC OUTREACH Provider Action/FYI: Call placed to the patient. Denies any medical needs at this time and reviewed H@H# with the patient and encouraged to call with any medical needs or concerns and patient agrees to do so. Contact made with patient: Yes Patient identified by name and . Discussed care with patient It s nice talking to you again. As a reminder, this is our bi-weekly check-in where I will be asking you questions about your health. This will only take a few minutes of your time. Is this a good time? Yes Symptoms What Chronic Disease(s) does the patient have: n/a Do you check your blood pressures at home? Yes, Enter readings: 110/60 Do you have new or worse shortness of breath with activity? No Are you having any other symptoms that your PCP needs to know about? No Symptoms: none Symptom Escalation FERNANDA Education Ordered -: No The patient required an escalation for symptom(s)? No Medications Do you have any questions about taking your medication or which medications you should be on? No Do you need any medication refills at this time, including any of the medications you might take only when needed? No Social We would like to make sure you have what you need so that your basic needs are met- including your personal safety, food, housing, transportation and medications? Would you like to speak with a social work bakery team member to help give you support for any of these needs? No It can be normal to feel anxious or down during a time like this. Would you like to talk to a mental health professional about how you have been feeling? No Closing Thank you for taking the time to talk with me today. We want to work with you to ensure that we arekeeping your medical condition(s) well-controlled and to keep you healthy and out of the doctor's office or hospital. It s also not too late for me to sign you up for automated weekly questionnaires through [employer]. This is an easy way for us to stay connected each week. Are you interested? No, I understand. We can always sign you up in the future if you change your mind. Just as a reminder, will continue to call you every other week to check in on your health. Our calls should take 10-15 minutes or less. Remember, if you have concerns in between our calls, please call your PCP's office right away. Thank you. Enter next patient outreach date for two weeks on the same day of the week as today in the Track PtOutreach and End outreach. documented in this encounterMercy Memorial Hospital02-23-2023 History of Present illness Narrative* Crystal Fuentes RN - 05/24/2022 12:57 PM EST [facility]IGHT [facility] TELEPHONIC OUTREACH Provider Action/FYI: Call placed to the patient Patient states that she is doing real well. She is having trouble losing weight after her surgery last April. Recommended she try journaling her meals and having that to look back on. Patient denies any medical needs or concerns and encouraged to call H@H# if any needs arise. Contact made with patient: Yes Patient identified by name and . Discussed care with patient It s nice talking to you again. As a reminder, this is our bi-weekly check-in where I will be asking you questions about your health. This will only take a few minutes of your time. Is this a good time? Yes Symptoms What Chronic Disease(s) does the patient have: n/a Do you check your blood pressures at home? Yes, Enter readings: 110/65 Do you have new or worse shortness of breath with activity? No Are you having any other symptoms that your PCP needs to know about? No Symptoms: none Symptom Escalation FERNANDA Education Ordered -: No The patient required an escalation for symptom(s)? No Medications Do you have any questions about taking your medication or which medications you should be on? No Do you need any medication refills at this time, including any of the medications you might take only when needed? No Social We would like to make sure you have what you need so that your basic needs are met- including your personal safety, food, housing, transportation and medications? Would you like to speak with a social work bakery team member to help give you support for any of these needs? No It can be normal to feel anxious or down during a time like this. Would you like to talk to a mental health professional about how you have been feeling? No Closing Thank you for taking the time to talk with me today. We want to work with you to ensure that we arekeeping your medical condition(s) well-controlled and to keep you healthy and out of the doctor's office or hospital. It s also not too late for me to sign you up for automated weekly questionnaires through 20x200. This is an easy way for us to stay connected each week. Are you interested? No, I understand. We can always sign you up in the future if you change your mind. Just as a reminder, will continue to call you every other week to check in on your health. Our calls should take 10-15 minutes or less. Remember, if you have concerns in between our calls, please call your PCP's office right away. Thank you. Enter next patient outreach date for two weeks on the same day of the week as today in the Track PtOutreach and End outreach. documented in this encounterMercy [facility] Hospital02-03-2023 Miscellaneous Notes* Telephone Encounter - Daly Leggett Pss - 05/04/2022 12:17 PM EST Patient has been identified by name and date of : Yes Requested Prescriptions Pending Prescriptions Disp Refills acetaminophen 325 mg-caffeine 40 mg-butalbital 50 mg (FIORICET) per tablet 20 tablet 0 Sig: Take 1 tablet by mouth every 6 hours as needed (headache). MORTEZA-02/05/22 Labs-01/23/22 NOV-08/06/22 med filled 10/25/21 RX INSTRUCTIONS: Patient aware RX will be sent to pharmacy. No need to notify patient. Daly Leggett Pss documented in this encounterMercy [facility] Hospital01-26-2023 History of Present illness Narrative* Wendie Solo RN - 04/26/2022 9:05 AM EST PRIMARY CARE COORDINATION QUICK NOTE Provider Action/FYI: Jacklyn this is Wendie Solo RN your nurse Experimental Physicist. I am calling to provide you with a phonenumber to connect you with [facility] services. This number is available 7 days a week from 8am-8pm and provides you with one call access to nursing, appointments, and other valuable resources.I can also send this information to your 20x200. Please take the time to write this number down . - spoke with patient/ all questions answered - she denies needs or concerns at this time - [place]/ prefers MONTHLY telephonic outreaches Patient identified by name and date . documented in this encounterMercy [facility] Hospital01-25-2023 Miscellaneous Notes* Telephone Encounter - Amanda Knight RN - 04/25/2022 3:37 PM EST HEALTHY AT HOME OUTREACH Provider Action/FYI: Patient calling Experimental Physicist back to further discuss Healthy at Home program. Jacklyn, you've reached [facility] Healthy [facility], my name is Amanda Knight RN, I'm a registered nurse, and we are on a recorded line. Patient identified by name and date of Spoke with patient Verify that the patient is a [facility] patient: Yes Are you having any symptoms today? No - What is the reason for call? General Questions/Other Need Patient calling back to speak with Wendie about this program and get more information. Patient can bereached tomorrow 04/26/22 from 8 am to 12 pm at the number listed in her chart. Patient stated she hasn't spoken to anyone in regards to this program and would like to get further information. Call Disposition: Managed by H@H RN Routed to [facility] Advised patient I will route note to listed Experimental Physicist Crystal Fuentes and Wendie Solo who reached out to patient to enroll. Patient expresses understanding and appreciation. Thank you for calling Healthy at Home. If you develop any new symptoms, your condition worsens, then GO TO THE EMERGENCY ROOM OR CALL 911. If you have any questions, please call us back. documented in this encounterMercy Memorial Hospital01-24-2023 History of Present illness Narrative* Wendie Solo RN - 04/24/2022 10:08 AM EST [facility] Enrollment Provider Action/FYI: Jacklyn this is Wendie Solo RN your nurse Experimental Physicist. I am calling to provide you with a phonenumber to connect you with [facility] services. This number is available 7 days a week from 8am-8pm and provides you with one call access to nursing, appointments, and other valuable resources.I can also send this information to your MyChart. Please take the time to write this number down . - per spouse, she is not home at the moment - he is agreeable to monthly telephonic outreaches - denies needs or concerns Patient referred by: [facility] Lissy Contact made with patient: Yes - Patient identified by name and . Discussed care with spouse Jacklyn hannah is Wendie Solo RN and I am calling from Luna Cope MD office at the [facility]. I am a RN Experimental Physicist with our [facility] Chronic Disease Management program. Luna Cope MD wanted me to reach out to help you manage your health at home. Our goal is to keep you well at home. We want to help you manage your chronic disease by providing a safety net of resources around you, getting you the care you need in a timely manner, and hopefully keep you out of the ED and hospital. I will send you a few questions once a week through your 20x200 account. It will automatically show up for you to complete. There are simple questions that will help us identify if you have any concerns or symptoms and I will call you to help get what you need. We will be able to connect you, review your symptoms, do an on demand visit, or communicate with Luna Cope MD if needed. I am going to sign you up for the program now. Enrollment Questions: Let's get you enrolled in the program. Yes, Do you have regular access to a computer/smartphone? No, Are you offering patient a biweekly phone call? yes/no: Yes. Goal Setting: I would like to take some time today to discuss your personal health goals. Patient does not have a goal. We will review during our next conversations to help support you. Most people know what to do to become healthier, yet struggle to put it into action on their own.Itcan be hard to maintain a healthy lifestyle, especially when life is so stressful. Can we connect you with a [facility] Cornice Upholsterer to find a program that could help you meet your goals? No Closing: Patient accepts telephonic outreach. FERNANDA Education Ordered -: No Thank you for your time today. I am excited to work together in managing your health! I will check back within in two weeks to see how things are going. If questions or concerns arise between phone calls, please reach out to your PCP s office. (Place in active status for [facility] and place name in care team and update next patient outreach data to next business day two weeks from today s date) * Wendie Solo RN - 04/20/2022 5:33 PM EST [facility] Enrollment Provider Action/FYI: Patient referred by: [facility] Lissy Contact made with patient: No - Left Message: Hi my name is Wendie Solo RN and I am calling from the [facility] on behalf of your PCP, Luna Cope MD. We are excited to share with you a new program to help you manage your health. Please call me back at [phone] between the hours of 8am-5pm Saturday- Saturday. You will receive another phone call from me within the next two business days.I hope you can take the time to speak with me. (Keep encounter open and attempt 2nd outreach in two business days from today) END OUTREACH documented in this encounterMercy Memorial Hospital11-07-2022 Instructions* Patient Instructions* Luna Cope MD - 02/05/2022 11:10 AM EST Counseling and Psychiatry Services [facility] [address] [place], [place] [id number] *counseling [facility] [address] [facility] [address] *counseling [address] [id number] *counseling Counsel[facility] [place] [address] [place], [place] [address] *counseling and psychiatry [address] [address] *counseling [address] [address] *counseling [facility] [address] [facility] [phone] *counseling [place] [address] [place] [address] *counseling [facility] [address] [place], [place] [address] [facility] [address] [facility], [address] [place] [address] *counseling [facility] [address] [place], [place] [id number] [facility] [address] [place], [place] [address] *counseling [facility] [address] [place] [address] [employer] [address] [place] [address] *counseling [employer] [address] [place] [address] *counseling [facility] [place] [facility] [address] [place] [address] *counseling and psychiatry [facility] [employer], [address] [place], [place] [id number] *psychiatry [facility] [phone] *grief counseling, individual and groups *If you ever experience a mental health crisis please call [phone] 911, Please verify with insurance provider for coverage r documented in this encounterMercy Memorial Hospital11-07-2022 History of Present illness Narrative* Luna Cope MD - 02/05/2022 10:48 AM EST Patient presents with: 6 Month Exam HPI: Patient presents today for office visit for Headaches have been stable. No more than usual. The only thing different she has noticed with them is that she can wake up with them now and didn't used to be that way. Thinking maybe could be mattress or pillows. PSYCH:Feels sad. Has never taken anything. Is interested in speaking with counselor. Not wanting totake medication at this time. Sleep issues: wakes up a lot. Trouble staying asleep. Energy changes: No. Appetite changes: No. Current depression: Yes. Current anxiety: No. Suicidal ideation: No. Is reading like usual but not knitting like her normal. No chest pain or shortness of breath. No edema. Bp is stable. Has followed with space engineer. Component Latest Ref Rng & Units 01/23/2022 WBC 3.70 - 11.00 k/uL 5.87 RBC 3.90 - 5.20 m/uL 4.82 Hemoglobin 11.5 - 15.5 g/dL 14.8 Hematocrit 36.0 - 46.0 % 43.4 MCV 80.0 - 100.0 fL 90.0 MCH 26.0 - 34.0 pg 30.7 MCHC 30.5 - 36.0 g/dL 34.1 RDW-CV 11.5 - 15.0 % 13.2 Platelet Count 150 - 400 k/uL 223 MPV 9.0 - 12.7 fL 9.3 Neut% % 45.7 Abs Neut (ANC) 1.45 - 7.50 k/uL 2.68 Lymph% % 41.9 Abs Lymph 1.00 - 4.00 k/uL 2.46 Swift% % 8.9 Abs Swift <0.87 k/uL 0.52 Eosin% % 2.7 Abs Eosin <0.46 k/uL 0.16 Baso% % 0.5 Abs Baso <0.11 k/uL 0.03 Immature Gran % % 0.3 IMMATURE GRANS (ABS) <0.10 k/uL <0.03 NRBC /100 WBC 0.0 Absolute nRBC <0.01 k/uL <0.01 DTYPE Auto Protein, Total 6.3 - 8.0 g/dL 6.7 Albumin 3.9 - 4.9 g/dL 4.5 Calcium 8.5 - 10.2 mg/dL 9.5 Bilirubin, Total 0.2 - 1.3 mg/dL 0.5 Alkaline Phosphatase 34 - 123 U/L 96 AST 13 - 35 U/L 18 ALT 7 - 38 U/L 16 Glucose 74 - 99 mg/dL 79 BUN 7 - 21 mg/dL 17 Creatinine 0.58 - 0.96 mg/dL 0.95 Sodium 136 - 144 mmol/L 137 Potassium 3.7 - 5.1 mmol/L 3.8 Chloride 97 - 105 mmol/L 101 CO2 22 - 30 mmol/L 26 Anion Gap 9 - 18 mmol/L 10 eGFR >=60 mL/min/1.73m 65 Cholesterol, Total <200 mg/dL 146 Triglyceride <150 mg/dL 175 (H) HDL Cholesterol >39 mg/dL 46 Non HDL Cholesterol <130 mg/dL 100 Fasting Time hrs 12 VLDL Cholesterol <30 mg/dL 35 (H) TC:HDL Ratio <5.10 3.17 LDL Cholesterol <100 mg/dL 65 LDL:HDL Ratio <2.54 1.41 MEDICATIONS: Current Outpatient Medications Medication Sig acetaminophen 325 mg-caffeine 40 mg-butalbital 50 mg (FIORICET) per tablet Take 1 tablet by mouth every 6 hours as needed (headache). aspirin, enteric coated (ASPIRIN, ENTERIC COATED) 81 mg EC tablet Take 81 mg by mouth once daily. levocetirizine 5 mg tablet Take 5 mg by mouth once daily. acetaminophen (TYLENOL) 325 mg tablet Take 2 tablets by mouth every 4 hours as needed for pain. ZINC ORAL Take 50 mg by mouth once daily. calcium carbonate/vitamin D3 (CALCIUM 600 + D ORAL) Take 1,200 mg by mouth. atorvastatin 10 mg tablet Take 10 mg by mouth once daily. metoprolol succinate XL (TOPROL XL) 50 mg ORAL 24 hr tablet Take 1 tablet by mouth once daily. MULTIVITAMIN TABLET Take one(1) tablet daily. No current facility-administered medications for this visit. 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 Difficult intravenous access 04/03/2021 Diverticulitis of colon (without mention of hemorrhage)(562.11) Essential hypertension, benign on Toprol Female stress incontinence Migraine with aura, without mention of intractable migraine without mention of status migrainosus Nonspecific (abnormal) findings on radiological and other examination of gastrointestinal tract PAST SURGICAL HISTORY Procedure Laterality Date BREAST SURGERY HX BX BREAST W/DEVICE 1ST LESION STEREOTACTIC GUID Right 01/31/2017 Benign microcalcifications and a fibroadenoma COLON SURGERY HX 04/04/2021 LAPAROSCOPIC COLECTOMY SIGMOID COLON W/ COLORECTAL ANASTOMOSIS COLONOSCOPY FLX DX W/COLLJ SPEC WHEN PFRMD 12/20/2006 COLONOSCOPY FLX DX W/COLLJ SPEC WHEN PFRMD 12/20/2016 Colonoscopy COLONOSCOPY FLX DX W/COLLJ SPEC WHEN PFRMD 03/16/2021 PAST SURGICAL HISTORY OF breast biopsies x 2 SKIN BIOPSY HX TONSILLECTOMY HX TONSILLECTOMY PRIMARY/SECONDARY <AGE 14 TOTAL ABDOMINAL HYSTERECT W/WO RMVL TUBE OVARY Hysterectomy, NEO uterine cancer VAGINAL HYSTERECTOMY FAMILY HISTORY Problem Relation Age of Onset Heart Father Hypertension Father Diabetes Father type II Cancer Mother uterine Heart Mother other (Fistula) Maternal Grandmother other (Hemochromatosis) Paternal Uncle Anesthesia Problems No Family History Social History Tobacco Use Smoking status: Never Smokeless tobacco: Never Vaping Use Vaping Use: Never used Substance Use Topics Alcohol use: Yes Comment: rare Drug use: No Reviewed current medications, allergies, past medical history, surgical history, family history andsocial history today. REVIEW OF SYSTEMS All other reviewed and negative other than HPI. HEALTH MAINTENANCE: Reviewed health maintenance issues today and recommended the following in detail. DEPRESSION ASSESSMENT Never done PAP TESTING [er gum/ VITALS: BP 108/62 Wt 74.4 kg (164 lb) LMP 04/07/2004 SpO2 97% BMI 24.22 kg/m Last 4 Encounter Wt Readings: Date: Wt: 07/31/2021 69.4 kg (153 lb) 07/21/2021 68.9 kg (152 lb) 04/03/2021 67.1 kg (148 lb) 02/21/2021 68.5 kg (151 lb) PHYSICAL EXAMINATION: General appearance: Well appearing, alert, in no acute distress, well-hydrated, well nourished. Skin: Skin color, texture, turgor normal, no suspicious rashes or lesions Head: Normocephalic, no masses, lesions, tenderness or abnormalities Neck: Supple, no adenopathy; thyroid symmetric, normal size, no bruits Lungs: Lungs clear to auscultation. No wheezing, rhonchi, rales Heart: RRR without murmur, gallop, or rubs. No ectopy Abdomen: Normal abdominal exam, Abdomen soft, non-tender. Bowel sounds normal. No masses, organomegaly Extremities: No deformities, edema, skin discoloration, clubbing or cyanosis. Good capillary refill. Musculoskeletal: No joint swelling, deformity, or tenderness ASSESSMENT/PLAN: 1. Essential hypertension, benign - ICD9: 401.1, ICD10: I10 (primary diagnosis) - good control - Continue current medication(s) - Goal of BP <130/80 2. Other hyperlipidemia - ICD9: 272.4, ICD10: E78.49 - stable. 3. Anxiety with depression - ICD9: 300.4, ICD10: F41.8 - will give info for counseling. Luna Cope MD documented in this encounterMercy Memorial Hospital07-27-2022 Miscellaneous Notes* Telephone Encounter - Geetha Warner Hennessy - 10/25/2021 2:45 PM EDT Last office visit: 07/31/21 F/u scheduled: 02/05/22 Last refilled on: Fioricet #30 with 0 refills on 12/07/20 Geetha Hylton Ma * Telephone Encounter - Crystal Costello Pss - 10/25/2021 2:38 PM EDT Patient is requesting a medication refill: Butalb/acetaminophen/caffeine 50-325-40 MG take one tablet by mouth every 6 hours as needed [facility] [place] documented in this encounterMercy Memorial Hospital06-02-2022 Miscellaneous Notes* Telephone Encounter - Luna Cope MD - 08/31/2021 10:53 AM EDT bp is good. Stay on current doses. * Telephone Encounter - Laura Lynch LPN - 08/31/2021 10:29 AM EDT Manual Readin/75 Pulse: 69 Reason for blood pressure check - Medication adjustment Patient is: Taking medication as prescribed Yes Took medication today Yes If no, date medication last taken N/A Experiencing side effects No BP was low at last appt 07/31/21. She has been holding Ramipril since that time. Tolerating well. Home readings have ranged 115-129/79-88. Denies any chest pain, shortness of breath, dizziness, or headaches. Occasional caffeine use. No personal history of tobacco use; no current exposure. Alert and oriented. Pt has been identified by name and birthdate: Yes Allergies reviewed: Yes Latex allergy: no. Medication - prescribed and OTC reviewed and updated: Yes Do you need any prescription refills prior to your next visit: No Health Maintenance: Reviewed and not up to date and provider notified Patient advised to continue with current medications and would be contacted if any further instructions after review by PCP. Laura Lynch LPN documented in this encounterMercy Memorial Hospital05-13-2022 Miscellaneous Notes* Letter - Mammography Coordinator - 08/11/2021 4:15 PM EDT August 11, 2021 PID: [id number] Radha Witt [address] [place] [address] Dear Ms. Witt, We are pleased to inform you that the results of your recent breast imaging exam on 08/11/2021 are normal. Your mammogram demonstrates that you have dense breast tissue, which could hide abnormalities. Dense breast tissue, in and of itself, is a relatively common condition. Therefore, this information is not provided to cause undue concern; rather, it is to raise your awareness and promote discussion with your health care provider regarding the presence of dense breast tissue in addition to other riskfactors. Early detection of cancer is very important. We also understand recommendations regarding breast cancer screening are controversial. Please discuss with your primary care provider which strategy is best for you and whether a mammogram is right for you. Your imaging studies and report will be [facility] at [facility] as part of your permanent medical record and are available for your continuing care. Thank you for allowing us to help in meeting your health care needs. Sincerely, Dr. Fernando Interpreting Radiologist [facility] (Normal over 40) documented in this encounterMercy Memorial Hospital05-13-2022 History of Present illness Narrative* RT Solomon(R) - 08/11/2021 9:30 AM EDT Radiology Service Progress Note PATIENT NAME: Radha Witt DATE OF SERVICE: August 11, 2021 TIME: 9:30 AM PATIENT IDENTITY VERIFICATION COMPLETED USING TWO (2) IDENTIFIERS: Name and Date of confirmedby patient verbally. FALL SCREENING: Has the patient had 2 falls in the last year or 1 fall with injury or currently using an Ambulatory Assistive Device (Walker, Cane, Wheelchair, Crutches, etc.)? No PATIENT GENDER DATA: Female. status: : No status: NO. PATIENT RELEVANT IMPLANT DATA REVIEWED: Not Applicable RADIOLOGY DEPARTMENT: Mammography PERIPHERAL IV DATA: Not applicable SIGNED BY: RT Solomon(R) August 11, 2021 9:30 AM documented in this encounterMercy Memorial Hospital05-02-2022 History of Present illness Narrative* Luna Cope MD - 07/31/2021 10:53 AM EDT Patient presents with: 6 Month Exam HPI: Patient presents today for office visit for follow up. HYPERTENSION:bp is low. No dizziness or lightheadedness. Did lose surgery after surgery. No chest pain or shortness of breath. No edema. GASTROENTEROLOGY:underwent laparoscopic colectomy. Bowels are adjusting overall. HLD:no myalgias. CARDIO: is patient of [facility]. Gets rare palpitations. BEAMER HAND:follows with space engineer MEDICATIONS: Current Outpatient Medications Medication Sig aspirin, enteric coated (ASPIRIN, ENTERIC COATED) 81 mg EC tablet Take 81 mg by mouth once daily. levocetirizine 5 mg tablet Take 5 mg by mouth once daily. ZINC ORAL Take 50 mg by mouth once daily. calcium carbonate/vitamin D3 (CALCIUM 600 + D ORAL) Take 1,200 mg by mouth. ramipril (ALTACE) 5 mg capsule Take 1 capsule by mouth once daily. atorvastatin 10 mg tablet Take 10 mg by mouth once daily. metoprolol succinate XL (TOPROL XL) 50 mg ORAL 24 hr tablet Take 1 tablet by mouth once daily. MULTIVITAMIN TABLET Take one(1) tablet daily. acetaminophen (TYLENOL) 325 mg tablet Take 2 tablets by mouth every 4 hours as needed for pain. No current facility-administered medications for this visit. 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 Difficult intravenous access 04/03/2021 Diverticulitis of colon (without mention of hemorrhage)(562.11) Essential hypertension, benign on Toprol Female stress incontinence Migraine with aura, without mention of intractable migraine without mention of status migrainosus Nonspecific (abnormal) findings on radiological and other examination of gastrointestinal tract PAST SURGICAL HISTORY Procedure Laterality Date BREAST SURGERY HX BX BREAST W/DEVICE 1ST LESION STEREOTACTIC GUID Right 01/31/2017 Benign microcalcifications and a fibroadenoma COLON SURGERY HX 04/04/2021 LAPAROSCOPIC COLECTOMY SIGMOID COLON W/ COLORECTAL ANASTOMOSIS COLONOSCOPY FLX DX W/COLLJ SPEC WHEN PFRMD 12/20/2006 COLONOSCOPY FLX DX W/COLLJ SPEC WHEN PFRMD 12/20/2016 Colonoscopy COLONOSCOPY FLX DX W/COLLJ SPEC WHEN PFRMD 03/16/2021 PAST SURGICAL HISTORY OF breast biopsies x 2 SKIN BIOPSY HX TONSILLECTOMY HX TONSILLECTOMY PRIMARY/SECONDARY <AGE 14 TOTAL ABDOMINAL HYSTERECT W/WO RMVL TUBE OVARY Hysterectomy, NEO uterine cancer VAGINAL HYSTERECTOMY FAMILY HISTORY Problem Relation Age of Onset Heart Father Hypertension Father Diabetes Father type II Cancer Mother uterine Heart Mother other (Fistula) Maternal Grandmother other (Hemochromatosis) Paternal Uncle Anesthesia Problems No Family History Social History Tobacco Use Smoking status: Never Smoker Smokeless tobacco: Never Used Vaping Use Vaping Use: Never used Substance Use Topics Alcohol use: Yes Comment: rare Drug use: No Reviewed current medications, allergies, past medical history, surgical history, family history andsocial history today. REVIEW OF SYSTEMS All other reviewed and negative other than HPI. HEALTH MAINTENANCE: Reviewed health maintenance issues today and recommended the following in detail. Hep c-donates blood regularly so was tested. DEPRESSION SCREENING - Depression Screening 05/21/2017 07/31/2021 PHQ-2 Score 1 1 Depression screening tool completed and reviewed. Based on score and interview, patient is not at risk for depression. Screening tool discussed with patient, and I recommended no further interventionat this time. ADVANCE DIRECTIVE DISCUSSION-Discussed advanced planning with patient today. They have a DPOA/Living Will:Yes Chosen surrogate for decision maker: Luis Reminded patients to have copies of their forms brought into the office to have placed in their medical records. Questions were answered. VITALS: BP 92/62 Pulse 68 Wt 69.4 kg (153 lb) LMP 04/07/2004 BMI 22.59 kg/m Last 4 Encounter Wt Readings: Date: Wt: 07/31/2021 69.4 kg (153 lb) 07/21/2021 68.9 kg (152 lb) 04/03/2021 67.1 kg (148 lb) 02/21/2021 68.5 kg (151 lb) PHYSICAL EXAMINATION: General appearance: Well appearing, alert, in no acute distress, well-hydrated, well nourished. Skin: Skin color, texture, turgor normal, no suspicious rashes or lesions Lungs: Lungs clear to auscultation. No wheezing, rhonchi, rales Heart: RRR without murmur, gallop, or rubs. No ectopy Abdomen: Normal abdominal exam, Abdomen soft, non-tender. Bowel sounds normal. No masses, organomegaly Extremities: No deformities, edema, skin discoloration, clubbing or cyanosis. Good capillary refill. Musculoskeletal: No joint swelling, deformity, or tenderness Peripheral pulses: Normal Neuro: Negative. ASSESSMENT/PLAN: 1. Other hyperlipidemia - ICD9: 272.4, ICD10: E78.49 (primary diagnosis) - continue. Med. - LIPID PANEL BASIC 2. Essential hypertension, benign - ICD9: 401.1, ICD10: I10 - Tight bp control - Hold ramapril. bp check in one month - Goal of BP <130/80 - CBC + DIFF - COMP METABOLIC PANEL 3. History of uterine cancer - ICD9: V10.42, ICD10: Z85.42 - per space engineer. 4. Diverticulosis - ICD9: 562.10, ICD10: K57.90 - doing well. Luna Cope RTO in six months and prn. [facility] of Present illness Narrative* Kenzie Clark APRN.MAORI PHYSIOTHERAPIST - 07/21/2021 9:29 AM EDT Radha is a 71 year old who presents for an annual gynecologic exam without complaints. Had 10 inches of colon removed 04/2021 for perforated diverticulitis. Still recovering. Postmenopausal: NEO-BSO 2004 Well differentiated carcinoma endometrium-grade 1 HRT use: No. Last Pap: 2018 normal Last mammogram: 2020 normal History of abnormal mammogram: Yes - had biopsy right breast negative and has repeat mammogram 08/05/17 Sexually active: No Hot flashes: Yes, occasional Night sweats: Yes, occasional Vaginal dryness: No Documentation from previous visit of 08/29/2018 was copied and pasted, documentation has been reviewed and edited as necessary for today's visit. OB History T0 L0 SAB0 IAB0 Ectopic0 Multiple0 Live Births0 Clinical Education Coordinator History LMP: 04/07/2004, Hysterectomy Age at Menarche: Age at First : Age at Menopause: Clinical Education Coordinator History Comments: Sexual Activity: Not Currently; Male; T.A.H. 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 Difficult intravenous access 04/03/2021 Diverticulitis of colon (without mention of hemorrhage)(562.11) Essential hypertension, benign on Toprol Female stress incontinence Migraine with aura, without mention of intractable migraine without mention of status migrainosus Nonspecific (abnormal) findings on radiological and other examination of gastrointestinal tract PAST SURGICAL HISTORY Procedure Laterality Date BREAST SURGERY HX BX BREAST W/DEVICE 1ST LESION STEREOTACTIC GUID Right 01/31/2017 Benign microcalcifications and a fibroadenoma COLON SURGERY HX 04/04/2021 LAPAROSCOPIC COLECTOMY SIGMOID COLON W/ COLORECTAL ANASTOMOSIS COLONOSCOPY FLX DX W/COLLJ SPEC WHEN PFRMD 12/20/2006 COLONOSCOPY FLX DX W/COLLJ SPEC WHEN PFRMD 12/20/2016 Colonoscopy COLONOSCOPY FLX DX W/COLLJ SPEC WHEN PFRMD 03/16/2021 PAST SURGICAL HISTORY OF breast biopsies x 2 SKIN BIOPSY HX TONSILLECTOMY HX TONSILLECTOMY PRIMARY/SECONDARY <AGE 14 TOTAL ABDOMINAL HYSTERECT W/WO RMVL TUBE OVARY Hysterectomy, NEO uterine cancer VAGINAL HYSTERECTOMY FAMILY HISTORY Problem Relation Age of Onset Heart Father Hypertension Father Diabetes Father type II Cancer Mother uterine Heart Mother other (Fistula) Maternal Grandmother other (Hemochromatosis) Paternal Uncle Anesthesia Problems No Family History SOCIAL HISTORY Social History Tobacco Use Smoking status: Never Smoker Smokeless tobacco: Never Used Vaping Use Vaping Use: Never used Substance Use Topics Alcohol use: Yes Comment: rare Drug use: No REVIEW OF SYSTEMS Abdomen: No abdominal pain, nausea, vomiting, diarrhea, or constipation. No bloating, early satiety, indigestion, or increased flatulence. Bladder: No dysuria, gross hematuria, urinary frequency, urinary urgency, or incontinence Breast: No breast lumps, nipple d/c, overlying skin changes, redness or skin retraction Allergies and current medication updated:Yes EXAM: BP 102/62 Ht 5' 9 (1.75m) Wt 152 lb (68.9kg) LMP 04/07/2004 BMI 22.44 kg/(m^2). GENERAL: pleasant, female in no apparent distress HEENT: Normocephalic, atraumatic, mucus membranes moist and no lesions NECK: Supple, full range of motion, no adenopathy and thyroid normal DERMATOLOGY: Normal, without lesions, non-icteric and non-hirsute BREAST: soft, non-tender, symmetric, no dominant mass, normal nipple-areolar complex, no lymphadenopathy and no nipple discharge CHEST: Normal inspiratory effort ABDOMEN: soft, non-tender and no masses PELVIC: external genitalia normal, normal Bartholin's glands, urethra, [place]'s glands, no vulvar lesions, thick adherent gold discharge present, normal appearing perineal body and perianal region BIMANUAL: no adnexal masses, non-tender and uterus surgically absent RECTOVAGINAL: deferred. NEURO: alert and oriented x3,exam grossly non-focal EXTREMITIES: normal ASSESSMENT/PLAN: 1) Health maintenance: Pap/HPV screening no longer needed Mammogram up to date and scheduled for next month Nutrition, exercise and routine health maintenance exams reviewed. Calcium/Vitamin D supplementation information provided. Colon cancer screening: up to date with screening BMD: up to date osteopenia - reviewed management 2) Follow up one year or sooner as needed Kenzie Clark APRN.SEAMUS [facility] History of Past illness Narrative* Problem Noted Date Resolved Date Hypomagnesemia 04/05/2021 04/05/2021 Last Assessment & Plan: PLAN: Replete mag>2 Check mag daily Pain of left hip joint 10/01/2018 Other osteoporosis without current pathological fracture 05/21/2017 05/28/2017 Backache, unspecified 05/29/2006 05/12/2012 Malignant neoplasm of corpus uteri, except isthm us 09/12/2005 01/26/2021 documented as of this encounter (statuses as of 07/04/2021) [facility] illness Narrative* Problem Noted Date Resolved Date Hypomagnesemia 04/05/2021 04/05/2021 Last Assessment & Plan: PLAN: Replete mag>2 Check mag daily Pain of left hip joint 10/01/2018 1 Other osteoporosis without current pathological fracture 05/21/2017 05/28/2017 Backache, unspecified 05/29/2006 05/12/2012 Malignant neoplasm of corpus uteri, except isthm us 09/12/2005 01/26/2021 documented as of this encounter (statuses as of 07/21/2021) [facility] illness Narrative* Problem Noted Date Resolved Date Hypomagnesemia 04/05/2021 04/05/2021 Last Assessment & Plan: PLAN: Replete mag>2 Check mag daily Post-op pain 04/03/2021 07/31/2021 Last Assessment & Plan: PLAN: Multimodal pain management Pain of left hip joint 10/01/2018 1 Other osteoporosis without current pathological fracture 05/21/2017 05/28/2017 Backache, unspecified 05/29/2006 05/12/2012 Malignant neoplasm of corpus uteri, except isthm us 09/12/2005 01/26/2021 Headache 06/04/2005 07/31/2021 documented as of this encounter (statuses as of 07/31/2021) [facility] Narrative* Problem Noted Date Resolved Date Hypomagnesemia 04/05/2021 04/05/2021 Last Assessment & Plan: PLAN: Replete mag>2 Check mag daily Post-op pain 04/03/2021 07/31/2021 Last Assessment & Plan: PLAN: Multimodal pain management Pain of left hip joint 10/01/2018 1 Other osteoporosis without current pathological fracture 05/21/2017 05/28/2017 Backache, unspecified 05/29/2006 05/12/2012 Malignant neoplasm of corpus uteri, except isthm us 09/12/2005 01/26/2021 Headache 06/04/2005 07/31/2021 documented as of this encounter (statuses as of 08/12/2021) [facility] Narrative* Problem Noted Date Resolved Date Hypomagnesemia 04/05/2021 04/05/2021 Last Assessment & Plan: PLAN: Replete mag>2 Check mag daily Post-op pain 04/03/2021 07/31/2021 Last Assessment & Plan: PLAN: Multimodal pain management Pain of left hip joint 10/01/2018 1 Other osteoporosis without current pathological fracture 05/21/2017 05/28/2017 Backache, unspecified 05/29/2006 05/12/2012 Malignant neoplasm of corpus uteri, except isthm us 09/12/2005 01/26/2021 Headache 06/04/2005 07/31/2021 documented as of this encounter (statuses as of 08/15/2021) [facility] Narrative* Problem Noted Date Resolved Date Hypomagnesemia 04/05/2021 04/05/2021 Last Assessment & Plan: PLAN: Replete mag>2 Check mag daily Post-op pain 04/03/2021 07/31/2021 Last Assessment & Plan: PLAN: Multimodal pain management Pain of left hip joint 10/01/2018 1 Other osteoporosis without current pathological fracture 05/21/2017 05/28/2017 Backache, unspecified 05/29/2006 05/12/2012 Malignant neoplasm of corpus uteri, except isthm us 09/12/2005 01/26/2021 Headache 06/04/2005 07/31/2021 documented as of this encounter (statuses as of 10/05/2021) [facility] Narrative* Problem Noted Date Resolved Date Hypomagnesemia 04/05/2021 04/05/2021 Last Assessment & Plan: PLAN: Replete mag>2 Check mag daily Post-op pain 04/03/2021 07/31/2021 Last Assessment & Plan: PLAN: Multimodal pain management Pain of left hip joint 10/01/2018 1 Other osteoporosis without current pathological fracture 05/21/2017 05/28/2017 Backache, unspecified 05/29/2006 05/12/2012 Malignant neoplasm of corpus uteri, except isthm us 09/12/2005 01/26/2021 Headache 06/04/2005 07/31/2021 documented as of this encounter (statuses as of 10/25/2021) [facility] Narrative* Problem Noted Date Resolved Date Hypomagnesemia 04/05/2021 04/05/2021 Last Assessment & Plan: PLAN: Replete mag>2 Check mag daily Post-op pain 04/03/2021 07/31/2021 Last Assessment & Plan: PLAN: Multimodal pain management Pain of left hip joint 10/01/2018 1 Other osteoporosis without current pathological fracture 05/21/2017 05/28/2017 Backache, unspecified 05/29/2006 05/12/2012 Malignant neoplasm of corpus uteri, except isthm us 09/12/2005 01/26/2021 Headache 06/04/2005 07/31/2021 documented as of this encounter (statuses as of 02/05/2022) [facility] Narrative* Problem Noted Date Resolved Date Hypomagnesemia 04/05/2021 04/05/2021 Last Assessment & Plan: PLAN: Replete mag>2 Check mag daily Post-op pain 04/03/2021 07/31/2021 Last Assessment & Plan: PLAN: Multimodal pain management Pain of left hip joint 10/01/2018 1 Other osteoporosis without current pathological fracture 05/21/2017 05/28/2017 Backache, unspecified 05/29/2006 05/12/2012 Malignant neoplasm of corpus uteri, except isthm us 09/12/2005 01/26/2021 Headache 06/04/2005 07/31/2021 documented as of this encounter (statuses as of 04/24/2022) [facility] Narrative* Problem Noted Date Resolved Date Hypomagnesemia 04/05/2021 04/05/2021 Last Assessment & Plan: PLAN: Replete mag>2 Check mag daily Post-op pain 04/03/2021 07/31/2021 Last Assessment & Plan: PLAN: Multimodal pain management Pain of left hip joint 10/01/2018 1 Other osteoporosis without current pathological fracture 05/21/2017 05/28/2017 Backache, unspecified 05/29/2006 05/12/2012 Malignant neoplasm of corpus uteri, except isthm us 09/12/2005 01/26/2021 Headache 06/04/2005 07/31/2021 documented as of this encounter (statuses as of 04/25/2022) [facility] Narrative* Problem Noted Date Resolved Date Hypomagnesemia 04/05/2021 04/05/2021 Last Assessment & Plan: PLAN: Replete mag>2 Check mag daily Post-op pain 04/03/2021 07/31/2021 Last Assessment & Plan: PLAN: Multimodal pain management Pain of left hip joint 10/01/2018 1 Other osteoporosis without current pathological fracture 05/21/2017 05/28/2017 Backache, unspecified 05/29/2006 05/12/2012 Malignant neoplasm of corpus uteri, except isthm 09/12/2005 01/26/2021 Headache 06/04/2005 07/31/2021 documented as of this encounter (statuses as of 04/26/2022) [facility] Narrative* Problem Noted Date Resolved Date Hypomagnesemia 04/05/2021 04/05/2021 Last Assessment & Plan: PLAN: Replete mag>2 Check mag daily Post-op pain 04/03/2021 07/31/2021 Last Assessment & Plan: PLAN: Multimodal pain management Pain of left hip joint 10/01/2018 1 Other osteoporosis without current pathological fracture 05/21/2017 05/28/2017 Backache, unspecified 05/29/2006 05/12/2012 Malignant neoplasm of corpus uteri, except isthm us 09/12/2005 01/26/2021 Headache 06/04/2005 07/31/2021 documented as of this encounter (statuses as of 05/05/2022) [facility] Narrative* Problem Noted Date Resolved Date Hypomagnesemia 04/05/2021 04/05/2021 Last Assessment & Plan: PLAN: Replete mag>2 Check mag daily Post-op pain 04/03/2021 07/31/2021 Last Assessment & Plan: PLAN: Multimodal pain management Pain of left hip joint 10/01/2018 1 Other osteoporosis without current pathological fracture 05/21/2017 05/28/2017 Backache, unspecified 05/29/2006 05/12/2012 Malignant neoplasm of corpus uteri, except isthm us 09/12/2005 01/26/2021 Headache 06/04/2005 07/31/2021 documented as of this encounter (statuses as of 05/24/2022) [facility]arrative* Problem Noted Date Resolved Date Hypomagnesemia 04/05/2021 04/05/2021 Last Assessment & Plan: PLAN: Replete mag>2 Check mag daily Post-op pain 04/03/2021 07/31/2021 Last Assessment & Plan: PLAN: Multimodal pain management Pain of left hip joint 10/01/2018 1 Other osteoporosis without current pathological fracture 05/21/2017 05/28/2017 Backache, unspecified 05/29/2006 05/12/2012 Malignant neoplasm of corpus uteri, except isthm us 09/12/2005 01/26/2021 Headache 06/04/2005 07/31/2021 documented as of this encounter (statuses as of 06/21/2022) [facility]arrative* Problem Noted Date Resolved Date Hypomagnesemia 04/05/2021 04/05/2021 Last Assessment & Plan: PLAN: Replete mag>2 Check mag daily Post-op pain 04/03/2021 07/31/2021 Last Assessment & Plan: PLAN: Multimodal pain management Pain of left hip joint 10/01/2018 1 Other osteoporosis without current pathological fracture 05/21/2017 05/28/2017 Backache, unspecified 05/29/2006 05/12/2012 Malignant neoplasm of corpus uteri, except isthm us 09/12/2005 01/26/2021 Headache 06/04/2005 07/31/2021 Generalized osteoarthrosis, unspecified site 08/200508/06/2022 documented as of this encounter (statuses as of 08/15/2022) [facility]arrative* Problem Noted Date Resolved Date Hypomagnesemia 04/05/2021 04/05/2021 Last Assessment & Plan: PLAN: Replete mag>2 Check mag daily Post-op pain 04/03/2021 07/31/2021 Last Assessment & Plan: PLAN: Multimodal pain management Pain of left hip joint 10/01/2018 1 Other osteoporosis without current pathological fracture 05/21/2017 05/28/2017 Backache, unspecified 05/29/2006 05/12/2012 Malignant neoplasm of corpus uteri, except isthm us 09/12/2005 01/26/2021 Headache 06/04/2005 07/31/2021 Generalized osteoarthrosis, unspecified site 08/200508/06/2022 documented as of this encounter (statuses as of 09/04/2022) [facility]* Problem Noted Date Resolved Date Hypomagnesemia 04/05/2021 04/05/2021 Last Assessment & Plan: PLAN: Replete mag>2 Check mag daily Post-op pain 04/03/2021 07/31/2021 Last Assessment & Plan: PLAN: Multimodal pain management Pain of left hip joint 10/01/2018 Other osteoporosis without current pathological fracture 05/21/2017 05/28/2017 Backache, unspecified 05/29/2006 05/12/2012 Malignant neoplasm of corpus uteri, except isthm us 09/12/2005 01/26/2021 Headache 06/04/2005 07/31/2021 Generalized osteoarthrosis, unspecified site 08/200508/06/2022 documented as of this encounter (statuses as of 10/04/2022) [facility]* Problem Noted Date Diagnosed Date Resolved Date Hypomagnesemia 04/05/2021 04/05/2021 Last Assessment & Plan: PLAN: Replete mag>2 Check mag daily Post-op pain 04/03/2021 07/31/2021 Last Assessment & Plan: PLAN: Multimodal pain management Pain of left hip joint 10/01/201807/29 Other osteoporosis without c urrent pathological fracture 05/21/2017 05/28/2017 Backache, unspecified 05/29/20062012 Malignant neoplasm of corpus uteri, except isthmus 09/12/2005 01/26/2021 Headache 06/04/2005 07/31/2021 Generalized osteoarthrosis, unspecified site 6 08/06/2022 documented as of this encounter (statuses as of 10/13/2022) [facility]* Problem Noted Date Diagnosed Date Resolved Date Hypomagnesemia 04/05/2021 04/05/2021 Last Assessment & Plan: PLAN: Replete mag>2 Check mag daily Post-op pain 04/03/2021 07/31/2021 Last Assessment & Plan: PLAN: Multimodal pain management Pain of left hip joint 10/01/201807/29 Other osteoporosis without c urrent pathological fracture 05/21/2017 05/28/2017 Backache, unspecified 05/29/20062012 Malignant neoplasm of corpus uteri, except isthmus 09/12/2005 01/26/2021 Headache 06/04/2005 07/31/2021 Generalized osteoarthrosis, unspecified site 6 08/06/2022 documented as of this encounter (statuses as of 10/26/2022) [facility]* Problem Noted Date Diagnosed Date Resolved Date Hypomagnesemia 04/05/2021 04/05/2021 Last Assessment & Plan: PLAN: Replete mag>2 Check mag daily Post-op pain 04/03/2021 07/31/2021 Last Assessment & Plan: PLAN: Multimodal pain management Pain of left hip joint 10/01/201807/29 Other osteoporosis without c urrent pathological fracture 05/21/2017 05/28/2017 Backache, unspecified 05/29/20062012 Malignant neoplasm of corpus uteri, except isthmus 09/12/2005 01/26/2021 Headache 06/04/2005 07/31/2021 Generalized osteoarthrosis, unspecified site 6 08/06/2022 documented as of this encounter (statuses as of 11/23/2022) [facility]* Problem Noted Date Diagnosed Date Resolved Date Hypomagnesemia 04/05/2021 04/05/2021 Last Assessment & Plan: PLAN: Replete mag>2 Check mag daily Post-op pain 04/03/2021 07/31/2021 Last Assessment & Plan: PLAN: Multimodal pain management Pain of left hip joint 10/01/201807/29 Other osteoporosis without c urrent pathological fracture 05/21/2017 05/28/2017 Backache, unspecified 05/29/20062012 Malignant neoplasm of corpus uteri, except isthmus 09/12/2005 01/26/2021 Headache 06/04/2005 07/31/2021 Generalized osteoarthrosis, unspecified site 6 08/06/2022 documented as of this encounter (statuses as of 01/03/2023) [facility]* Problem Noted Date Diagnosed Date Resolved Date Hypomagnesemia 04/05/2021 04/05/2021 Last Assessment & Plan: PLAN: Replete mag>2 Check mag daily Post-op pain 04/03/2021 07/31/2021 Last Assessment & Plan: PLAN: Multimodal pain management Pain of left hip joint 10/01/201807/29 Other osteoporosis without c urrent pathological fracture 05/21/2017 05/28/2017 Backache, unspecified 05/29/20062012 Malignant neoplasm of corpus uteri, except isthmus 09/12/2005 01/26/2021 Headache 06/04/2005 07/31/2021 Generalized osteoarthrosis, unspecified site 6 08/06/2022 documented as of this encounter (statuses as of 01/22/2023) [facility]* Problem Noted Date Diagnosed Date Resolved Date Hypomagnesemia 04/05/2021 04/05/2021 Last Assessment & Plan: PLAN: Replete mag>2 Check mag daily Post-op pain 04/03/2021 07/31/2021 Last Assessment & Plan: PLAN: Multimodal pain management Pain of left hip joint 10/01/201807/29 Other osteoporosis without c urrent pathological fracture 05/21/2017 05/28/2017 Backache, unspecified 05/29/20062012 Malignant neoplasm of corpus uteri, except isthmus 09/12/2005 01/26/2021 Headache 06/04/2005 07/31/2021 Generalized osteoarthrosis, unspecified site 6 08/06/2022 documented as of this encounter (statuses as of 02/03/2023) [facility]* Problem Noted Date Diagnosed Date Resolved Date Hypomagnesemia 04/05/2021 04/05/2021 Last Assessment & Plan: PLAN: Replete mag>2 Check mag daily Post-op pain 04/03/2021 07/31/2021 Last Assessment & Plan: PLAN: Multimodal pain management Pain of left hip joint 10/01/201807/29 Other osteoporosis without c urrent pathological fracture 05/21/2017 05/28/2017 Backache, unspecified 05/29/20062012 Malignant neoplasm of corpus uteri, except isthmus 09/12/2005 01/26/2021 Headache 06/04/2005 07/31/2021 Generalized osteoarthrosis, unspecified site 6 08/06/2022 documented as of this encounter (statuses as of 02/12/2023) [facility]* Problem Noted Date Diagnosed Date Resolved Date Hypomagnesemia 04/05/2021 04/05/2021 Last Assessment & Plan: PLAN: Replete mag>2 Check mag daily Post-op pain 04/03/2021 07/31/2021 Last Assessment & Plan: PLAN: Multimodal pain management Pain of left hip joint 10/01/201807/29 Other osteoporosis without c urrent pathological fracture 05/21/2017 05/28/2017 Backache, unspecified 05/29/20062012 Malignant neoplasm of corpus uteri, except isthmus 09/12/2005 01/26/2021 Headache 06/04/2005 07/31/2021 Generalized osteoarthrosis, unspecified site 6 08/06/2022 documented as of this encounter (statuses as of 02/14/2023) [facility]* Problem Noted Date Diagnosed Date Resolved Date Hypomagnesemia 04/05/2021 04/05/2021 Last Assessment & Plan: PLAN: Replete mag>2 Check mag daily Post-op pain 04/03/2021 07/31/2021 Last Assessment & Plan: PLAN: Multimodal pain management Pain of left hip joint 10/01/201807/29 Other osteoporosis without c urrent pathological fracture 05/21/2017 05/28/2017 Backache, unspecified 05/29/20062012 Malignant neoplasm of corpus uteri, except isthmus 09/12/2005 01/26/2021 Headache 06/04/2005 07/31/2021 Generalized osteoarthrosis, unspecified site 6 08/06/2022 documented as of this encounter (statuses as of 03/05/2023) [facility]* Problem Noted Date Diagnosed Date Resolved Date Hypomagnesemia 04/05/2021 04/05/2021 Last Assessment & Plan: PLAN: Replete mag>2 Check mag daily Post-op pain 04/03/2021 07/31/2021 Last Assessment & Plan: PLAN: Multimodal pain management Pain of left hip joint 10/01/201807/29 Other osteoporosis without c urrent pathological fracture 05/21/2017 05/28/2017 Backache, unspecified 05/29/20062012 Malignant neoplasm of corpus uteri, except isthmus 09/12/2005 01/26/2021 Headache 06/04/2005 07/31/2021 Generalized osteoarthrosis, unspecified site 6 08/06/2022 documented as of this encounter (statuses as of 04/14/2023) [facility]* Problem Noted Date Diagnosed Date Resolved Date Hypomagnesemia 04/05/2021 04/05/2021 Last Assessment & Plan: PLAN: Replete mag>2 Check mag daily Post-op pain 04/03/2021 07/31/2021 Last Assessment & Plan: PLAN: Multimodal pain management Pain of left hip joint 10/01/201807/29 Other osteoporosis without c urrent pathological fracture 05/21/2017 05/28/2017 Backache, unspecified 05/29/20062012 Malignant neoplasm of corpus uteri, except isthmus 09/12/2005 01/26/2021 Headache 06/04/2005 07/31/2021 Generalized osteoarthrosis, unspecified site 6 08/06/2022 documented as of this encounter (statuses as of 05/07/2023) [facility]* Problem Noted Date Diagnosed Date Resolved Date Hypomagnesemia 04/05/2021 04/05/2021 Last Assessment & Plan: PLAN: Replete mag>2 Check mag daily Post-op pain 04/03/2021 07/31/2021 Last Assessment & Plan: PLAN: Multimodal pain management Pain of left hip joint 10/01/201807/29 Other osteoporosis without c urrent pathological fracture 05/21/2017 05/28/2017 Backache, unspecified 05/29/20062012 Malignant neoplasm of corpus uteri, except isthmus 09/12/2005 01/26/2021 Headache 06/04/2005 07/31/2021 Generalized osteoarthrosis, unspecified site 6 08/06/2022 documented as of this encounter (statuses as of 05/15/2023) [facility]* Problem Noted Date Diagnosed Date Resolved Date Hypomagnesemia 04/05/2021 04/05/2021 Last Assessment & Plan: PLAN: Replete mag>2 Check mag daily Post-op pain 04/03/2021 07/31/2021 Last Assessment & Plan: PLAN: Multimodal pain management Pain of left hip joint 10/01/201807/29 Other osteoporosis without c urrent pathological fracture 05/21/2017 05/28/2017 Backache, unspecified 05/29/20062012 Malignant neoplasm of corpus uteri, except isthmus 09/12/2005 01/26/2021 Headache 06/04/2005 07/31/2021 Generalized osteoarthrosis, unspecified site 6 08/06/2022 documented as of this encounter (statuses as of 05/21/2023) [facility] History of Past illness Narrative* Problem Noted Date Diagnosed Date Resolved Date Hypomagnesemia 04/05/2021 04/05/2021 Last Assessment & Plan: PLAN: Replete mag>2 Check mag daily Post-op pain 04/03/2021 07/31/2021 Last Assessment & Plan: PLAN: Multimodal pain management Pain of left hip joint 10/01/201807/29 Other osteoporosis without c urrent pathological fracture 05/21/2017 05/28/2017 Backache, unspecified 05/29/20062012 Malignant neoplasm of corpus uteri, except isthmus 09/12/2005 01/26/2021 Headache 06/04/2005 07/31/2021 Generalized osteoarthrosis, unspecified site 6 08/06/2022 documented as of this encounter (statuses as of 05/22/2023) [facility] History of Past illness Narrative* Problem Noted Date Diagnosed Date Resolved Date Hypomagnesemia 04/05/2021 04/05/2021 Last Assessment & Plan: PLAN: Replete mag>2 Check mag daily Post-op pain 04/03/2021 07/31/2021 Last Assessment & Plan: PLAN: Multimodal pain management Pain of left hip joint 10/01/201807/29 Other osteoporosis without c urrent pathological fracture 05/21/2017 05/28/2017 Backache, unspecified 05/29/20062012 Malignant neoplasm of corpus uteri, except isthmus 09/12/2005 01/26/2021 Headache 06/04/2005 07/31/2021 Generalized osteoarthrosis, unspecified site 6 08/06/2022 documented as of this encounter (statuses as of 05/22/2023) [facility] History of Past illness Narrative* Problem Noted Date Diagnosed Date Resolved Date Hypomagnesemia 04/05/2021 04/05/2021 Last Assessment & Plan: PLAN: Replete mag>2 Check mag daily Post-op pain 04/03/2021 07/31/2021 Last Assessment & Plan: PLAN: Multimodal pain management Pain of left hip joint 10/01/201807/29 Other osteoporosis without c urrent pathological fracture 05/21/2017 05/28/2017 Backache, unspecified 05/29/20062012 Malignant neoplasm of corpus uteri, except isthmus 09/12/2005 01/26/2021 Headache 06/04/2005 07/31/2021 Generalized osteoarthrosis, unspecified site 6 08/06/2022 documented as of this encounter (statuses as of 05/22/2023) [facility] History of Past illness Narrative* Problem Noted Date Diagnosed Date Resolved Date Hypomagnesemia 04/05/2021 04/05/2021 Last Assessment & Plan: PLAN: Replete mag>2 Check mag daily Post-op pain 04/03/2021 07/31/2021 Last Assessment & Plan: PLAN: Multimodal pain management Pain of left hip joint 10/01/201807/29 Other osteoporosis without c urrent pathological fracture 05/21/2017 05/28/2017 Backache, unspecified 05/29/20062012 Malignant neoplasm of corpus uteri, except isthmus 09/12/2005 01/26/2021 Headache 06/04/2005 07/31/2021 Generalized osteoarthrosis, unspecified site 6 08/06/2022 documented as of this encounter (statuses as of 05/23/2023) [facility] History of Past illness Narrative* Problem Noted Date Diagnosed Date Resolved Date Hypomagnesemia 04/05/2021 04/05/2021 Last Assessment & Plan: PLAN: Replete mag>2 Check mag daily Post-op pain 04/03/2021 07/31/2021 Last Assessment & Plan: PLAN: Multimodal pain management Pain of left hip joint 10/01/201807/29 Other osteoporosis without c urrent pathological fracture 05/21/2017 05/28/2017 Backache, unspecified 05/29/20062012 Malignant neoplasm of corpus uteri, except isthmus 09/12/2005 01/26/2021 Headache 06/04/2005 07/31/2021 Generalized osteoarthrosis, unspecified site 6 08/06/2022 documented as of this encounter (statuses as of 06/07/2023) [facility] History of Past illness Narrative* Problem Noted Date Diagnosed Date Resolved Date Hypomagnesemia 04/05/2021 04/05/2021 Last Assessment & Plan: PLAN: Replete mag>2 Check mag daily Post-op pain 04/03/2021 07/31/2021 Last Assessment & Plan: PLAN: Multimodal pain management Pain of left hip joint 10/01/201807/29 Other osteoporosis without c urrent pathological fracture 05/21/2017 05/28/2017 Backache, unspecified 05/29/20062012 Malignant neoplasm of corpus uteri, except isthmus 09/12/2005 01/26/2021 Headache 06/04/2005 07/31/2021 Generalized osteoarthrosis, unspecified site 6 08/06/2022 documented as of this encounter (statuses as of 06/10/2023) [facility] History of Past illness Narrative* Problem Noted Date Diagnosed Date Resolved Date Hypomagnesemia 04/05/2021 04/05/2021 Last Assessment & Plan: PLAN: Replete mag>2 Check mag daily Post-op pain 04/03/2021 07/31/2021 Last Assessment & Plan: PLAN: Multimodal pain management Pain of left hip joint 10/01/201807/29 Other osteoporosis without c urrent pathological fracture 05/21/2017 05/28/2017 Backache, unspecified 05/29/20062012 Malignant neoplasm of corpus uteri, except isthmus 09/12/2005 01/26/2021 Headache 06/04/2005 07/31/2021 Generalized osteoarthrosis, unspecified site 6 08/06/2022 documented as of this encounter (statuses as of 06/25/2023) [facility] History of Past illness Narrative* Problem Noted Date Diagnosed Date Resolved Date Hypomagnesemia 04/05/2021 04/05/2021 Last Assessment & Plan: PLAN: Replete mag>2 Check mag daily Post-op pain 04/03/2021 07/31/2021 Last Assessment & Plan: PLAN: Multimodal pain management Pain of left hip joint 10/01/201807/29 Other osteoporosis without c urrent pathological fracture 05/21/2017 05/28/2017 Backache, unspecified 05/29/20062012 Malignant neoplasm of corpus uteri, except isthmus 09/12/2005 01/26/2021 Headache 06/04/2005 07/31/2021 Generalized osteoarthrosis, unspecified site 6 08/06/2022 documented as of this encounter (statuses as of 07/05/2023) [facility] History of Past illness Narrative* Problem Noted Date Diagnosed Date Resolved Date Hypomagnesemia 04/05/2021 04/05/2021 Last Assessment & Plan: PLAN: Replete mag>2 Check mag daily Post-op pain 04/03/2021 07/31/2021 Last Assessment & Plan: PLAN: Multimodal pain management Pain of left hip joint 10/01/201807/29 Other osteoporosis without c urrent pathological fracture 05/21/2017 05/28/2017 Backache, unspecified 05/29/20062012 Malignant neoplasm of corpus uteri, except isthmus 09/12/2005 01/26/2021 Headache 06/04/2005 07/31/2021 Generalized osteoarthrosis, unspecified site 6 08/06/2022 documented as of this encounter (statuses as of 07/05/2023) [facility] History of Past illness Narrative* Problem Noted Date Diagnosed Date Resolved Date Hypomagnesemia 04/05/2021 04/05/2021 Last Assessment & Plan: PLAN: Replete mag>2 Check mag daily Post-op pain 04/03/2021 07/31/2021 Last Assessment & Plan: PLAN: Multimodal pain management Pain of left hip joint 10/01/201807/29 Other osteoporosis without c urrent pathological fracture 05/21/2017 05/28/2017 Backache, unspecified 05/29/20062012 Malignant neoplasm of corpus uteri, except isthmus 09/12/2005 01/26/2021 Headache 06/04/2005 07/31/2021 Generalized osteoarthrosis, unspecified site 6 08/06/2022 documented as of this encounter (statuses as of 07/12/2023) [facility] Diagnosis Screening breast examination- Primary Breast screening, unspecified Encounter for screening mammogram for malignant neoplasm of breast Other screening mammogram [facility] Diagnosis Encounter for gynecologic examination for high-risk patient covered by Medicare- Primary Routine gynecological examination Vaginal discharge Leukorrhea, not specified as infective [facility] Diagnosis Other hyperlipidemia- Primary Essential hypertension, benign History of uterine cancer Personal history of malignant neoplasm of other parts of uterus Diverticulosis Diverticulosis of colon (without mention of hemorrhage) [facility] Screening breast examination Breast screening, unspecified Encounter for screening mammogram for malignant neoplasm of breast Other screening mammogram [facility] Diagnosis Onset Date Resolution Status Essential hypertension chron ic Nonrheumatic mitral (valve) prolapse chronic Pure hypercholesterolemia [facility] Work [facility]* Diagnosis Headache, unspecified headache type documented in this encounter [facility] note* Diagnosis Essential hypertension, benign- Primary Other hyperlipidemia Anxiety with depression documented in this encounter [facility] noteNo assessment information availableWSy[facility] Work [facility]: [facility]* Diagnosis Osteopenia of multiple sites- Primary documented in this encounter [facility] note* Diagnosis Headache, unspecified headache type documented in this encounter [facility] note* Diagnosis Pain of right hand- Primary Pain in limb documented in this encounter [facility] note* Diagnosis Insect bite of back, unspecified laterality, initial encounter- Primary Rash Rash and other nonspecific skin eruption documented in this encounter [facility] note* Diagnosis Headache, unspecified headache type documented in this encounter [facility] note* Diagnosis Encounter for screening mammogram for malignant neoplasm of breast Other screening mammogram documented in this encounter [facility] note* Diagnosis Essential hypertension, benign- Primary Other hyperlipidemia MVP (mitral valve prolapse) Mitral valve disorders Pain of right hand Pain in limb Need for vaccination Need for prophylactic vaccination and inoculation against unspecified single disease documented in this encounter [facility] note* Diagnosis Trigger middle finger of right hand- Primary Trigger finger (acquired) Pain of right hand Pain in limb Trigger middle finger of right hand Trigger finger (acquired) documented in this encounter [facility] note* Diagnosis LLQ pain- Primary Abdominal pain, left lower quadrant Left lower quadrant abdominal pain documented in this encounter [facility] note* Diagnosis LLQ pain Abdominal pain, left lower quadrant Left lower quadrant abdominal pain documented in this encounter [facility] note* Diagnosis LLQ pain- Primary Abdominal pain, left lower quadrant History of partial colectomy Renal insufficiency Unspecified disorder of kidney and ureter Polycythemia Polycythemia vera documented in this encounter [facility] note* Diagnosis LLQ pain Abdominal pain, left lower quadrant History of partial colectomy documented in this encounter [facility] note* Diagnosis Diverticulitis- Primary Diverticulitis of colon (without mention of hemorrhage) LLQ pain Abdominal pain, left lower quadrant History of partial colectomy documented in this encounter [facility] note* Diagnosis Essential hypertension, benign- Primary Other hyperlipidemia Insomnia, unspecified type History of uterine cancer Personal history of malignant neoplasm of other parts of uterus Osteopenia of multiple sites Stage 3a chronic kidney disease (HCC) Disorder of bone Disorder of bone and cartilage, unspecified Encounter for screening mammogram for malignant neoplasm of breast Other screening mammogram Need for vaccination Need for prophylactic vaccination and inoculation against unspecified single disease [facility] Diagnosis Osteopenia of multiple sites Disorder of bone Disorder of bone and cartilage, unspecified documented in this encounter [facility] note* Diagnosis Encounter for screening mammogram for malignant neoplasm of breast Other screening mammogram [facility] Diagnosis Inconclusive mammogram- Primary [facility]* Diagnosis Inconclusive mammogram [facility]* Diagnosis Inconclusive mammogram [facility]* Diagnosis Epistaxis- Primary Chronic midline low back pain without sciatica [facility]* Diagnosis Urinary frequency- Primary [facility]* Diagnosis Headache, unspecified headache type [facility]* Diagnosis Abnormal mammogram- Primary Abnormal mammogram, unspecified [facility]* Diagnosis Abnormal mammogram- Primary Abnormal mammogram, unspecified Abnormal mammogram Abnormal mammogram, unspecified documented in this encounter [facility] note* Diagnosis Abnormal mammogram Abnormal mammogram, unspecified [facility]* Diagnosis Malignant neoplasm of lower-inner quadrant of left breast in female, estrogen receptor negative (HCC)- Primary documented in this encounter [facility] note* Diagnosis Malignant neoplasm of lower-inner quadrant of left breast in female, estrogen receptor negative (HCC)- Primary [facility]* Diagnosis Malignant neoplasm of lower-inner quadrant of left breast in female, estrogen receptor negative (HCC)- Primary 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) At risk for lymphedema Other specified conditions influencing health status [facility]* Diagnosis 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)- Primary 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) [facility]* Diagnosis Abnormal finding on breast imaging- Primary Other (abnormal) findings on radiological examination of breast 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) [facility] Malignant neoplasm of lower-inner quadrant of left breast in female, estrogen receptor negative (HCC)- Primary Abnormal MRI, breast Other (abnormal) findings on radiological examination of breast 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) documented in this encounter [facility] note* Diagnosis Pre-op evaluation- Primary Preoperative examination, unspecified Difficult intravenous access Other specified conditions influencing health status PONV (postoperative nausea and vomiting) Nausea with vomiting Stage 3a chronic kidney disease (HCC) History of uterine cancer Personal history of malignant neoplasm of other parts of uterus History of partial colectomy MVP (mitral valve prolapse) Mitral valve disorders Essential hypertension, benign Other hyperlipidemia * Assessment & Plan Note - Don Grijalva APRN.CNP - 10/23/2023 9:21 AM EDT Associated Problem(s): Hyperlipidemia Managed on Atorvastatin * Assessment & Plan Note - Don Grijalva APRN.CNP - 10/23/2023 9:21 AM EDT Associated Problem(s): Essential hypertension, benign Managed on metoprolol Denies cardiac symptoms EKG pending today Follows with [facility] Supervisor annually at OSH * Assessment & Plan Note - Don Grijalva APRN.CNP - 10/23/2023 9:20 AM EDT Associated Problem(s): MVP (mitral valve prolapse) Last Echo scanned in chart 2016 Mild MVP Denies cardiac symptoms EKG pending today Follows with [facility] Supervisor annually at OSH * Assessment & Plan Note - Don Grijalva APRN.CNP - 10/23/2023 9:20 AM EDT Associated Problem(s): History of partial colectomy Related to perforated diverticulitis in 2021 Denies active issues or concerns * Assessment & Plan Note - Don Grijalva APRN.CNP - 10/23/2023 9:19 AM EDT Associated Problem(s): History of uterine cancer hx uterine ca sp total hysterectomy * Assessment & Plan Note - Don Grijalva APRN.CNP - 10/23/2023 9:19 AM EDT Associated Problem(s): Stage 3a chronic kidney disease (HCC) CMP: BUN 19 06/12/2023 Creatinine 1.04 06/12/2023 CMP pending today * Assessment & Plan Note - Don Grijalva APRN.CNP - 10/23/2023 9:19 AM EDT Associated Problem(s): PONV (postoperative nausea and vomiting) Patient endorses PONV Symptoms presented with premedication * Assessment & Plan Note - Don Grijalva APRN.CNP - 10/23/2023 9:18 AM EDT Associated Problem(s): Difficult intravenous access multiple sticks Recommend use of US machine for assistance [facility] Diagnosis 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) [facility]* Diagnosis Malignant neoplasm of lower-inner quadrant of left breast in female, estrogen receptor negative (HCC) 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) [facility] Diagnosis Malignant neoplasm of lower-inner quadrant of left breast in female, estrogen receptor negative (HCC)- Primary 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) [facility] Diagnosis Abnormal finding on breast imaging Other (abnormal) findings on radiological examination of breast 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) [facility]* Diagnosis Abnormal finding on breast imaging Other (abnormal) findings on radiological examination of breast 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) [facility] Malignant neoplasm of lower-inner quadrant of left breast in female, estrogen receptor negative (HCC)- Primary 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) [facility] S/P lumpectomy, left breast- Primary Other postprocedural status [facility]* Diagnosis Post-op pain Other acute postoperative pain Essential hypertension, benign Hyperlipidemia Other and unspecified hyperlipidemia Hypomagnesemia Disorders of magnesium metabolism Preop examination- Primary Preoperative examination, unspecified Diverticulitis Diverticulitis of colon (without mention of hemorrhage) Difficult intravenous access Other specified conditions influencing health status MVP (mitral valve prolapse) Mitral valve disorders Essential hypertension, benign Pre-op evaluation- Primary Preoperative examination, unspecified Difficult intravenous access Other specified conditions influencing health status PONV (postoperative nausea and vomiting) Nausea with vomiting Stage 3a chronic kidney disease (HCC) History of uterine cancer Personal history of malignant neoplasm of other parts of uterus History of partial colectomy MVP (mitral valve prolapse) Mitral valve disorders Essential hypertension, benign Other hyperlipidemia 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)- Primary [facility] Diagnosis Post-op pain Other acute postoperative pain Essential hypertension, benign Hyperlipidemia Other and unspecified hyperlipidemia Hypomagnesemia Disorders of magnesium metabolism Preop examination- Primary Preoperative examination, unspecified Diverticulitis Diverticulitis of colon (without mention of hemorrhage) Difficult intravenous access Other specified conditions influencing health status MVP (mitral valve prolapse) Mitral valve disorders Essential hypertension, benign Pre-op evaluation- Primary Preoperative examination, unspecified Difficult intravenous access Other specified conditions influencing health status PONV (postoperative nausea and vomiting) Nausea with vomiting Stage 3a chronic kidney disease (HCC) History of uterine cancer Personal history of malignant neoplasm of other parts of uterus History of partial colectomy MVP (mitral valve prolapse) Mitral valve disorders Essential hypertension, benign Other hyperlipidemia 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)- Primary Abnormal finding on breast imaging Other (abnormal) findings on radiological examination of breast [facility]* Diagnosis Post-op pain Other acute postoperative pain Essential hypertension, benign Hyperlipidemia Other and unspecified hyperlipidemia Hypomagnesemia Disorders of magnesium metabolism Preop examination- Primary Preoperative examination, unspecified Diverticulitis Diverticulitis of colon (without mention of hemorrhage) Difficult intravenous access Other specified conditions influencing health status MVP (mitral valve prolapse) Mitral valve disorders Essential hypertension, benign Pre-op evaluation- Primary Preoperative examination, unspecified Difficult intravenous access Other specified conditions influencing health status PONV (postoperative nausea and vomiting) Nausea with vomiting Stage 3a chronic kidney disease (HCC) History of uterine cancer Personal history of malignant neoplasm of other parts of uterus History of partial colectomy MVP (mitral valve prolapse) Mitral valve disorders Essential hypertension, benign Other hyperlipidemia Malignant neoplasm of lower-inner quadrant of left breast in female, estrogen receptor negative (HCC)- Primary 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) Abnormal MRI, breast Other (abnormal) findings on radiological examination of breast documented in this encounter [facility] note* Diagnosis Post-op pain Other acute postoperative pain Essential hypertension, benign Hyperlipidemia Other and unspecified hyperlipidemia Hypomagnesemia Disorders of magnesium metabolism Preop examination- Primary Preoperative examination, unspecified Diverticulitis Diverticulitis of colon (without mention of hemorrhage) Difficult intravenous access Other specified conditions influencing health status MVP (mitral valve prolapse) Mitral valve disorders Essential hypertension, benign Pre-op evaluation- Primary Preoperative examination, unspecified Difficult intravenous access Other specified conditions influencing health status PONV (postoperative nausea and vomiting) Nausea with vomiting Stage 3a chronic kidney disease (HCC) History of uterine cancer Personal history of malignant neoplasm of other parts of uterus History of partial colectomy MVP (mitral valve prolapse) Mitral valve disorders Essential hypertension, benign Other hyperlipidemia Malignant neoplasm of lower-inner quadrant of left breast in female, estrogen receptor negative (HCC)- Primary documented in this encounter [facility] note* Diagnosis Post-op pain Other acute postoperative pain Essential hypertension, benign Hyperlipidemia Other and unspecified hyperlipidemia Hypomagnesemia Disorders of magnesium metabolism Preop examination- Primary Preoperative examination, unspecified Diverticulitis Diverticulitis of colon (without mention of hemorrhage) Difficult intravenous access Other specified conditions influencing health status MVP (mitral valve prolapse) Mitral valve disorders Essential hypertension, benign Pre-op evaluation- Primary Preoperative examination, unspecified Difficult intravenous access Other specified conditions influencing health status PONV (postoperative nausea and vomiting) Nausea with vomiting Stage 3a chronic kidney disease (HCC) History of uterine cancer Personal history of malignant neoplasm of other parts of uterus History of partial colectomy MVP (mitral valve prolapse) Mitral valve disorders Essential hypertension, benign Other hyperlipidemia Malignant neoplasm of lower-inner quadrant of left breast in female, estrogen receptor negative (HCC)- Primary [facility] Diagnosis Post-op pain Other acute postoperative pain Essential hypertension, benign Hyperlipidemia Other and unspecified hyperlipidemia Hypomagnesemia Disorders of magnesium metabolism Preop examination- Primary Preoperative examination, unspecified Diverticulitis Diverticulitis of colon (without mention of hemorrhage) Difficult intravenous access Other specified conditions influencing health status MVP (mitral valve prolapse) Mitral valve disorders Essential hypertension, benign Pre-op evaluation- Primary Preoperative examination, unspecified Difficult intravenous access Other specified conditions influencing health status PONV (postoperative nausea and vomiting) Nausea with vomiting Stage 3a chronic kidney disease (HCC) History of uterine cancer Personal history of malignant neoplasm of other parts of uterus History of partial colectomy MVP (mitral valve prolapse) Mitral valve disorders Essential hypertension, benign Other hyperlipidemia Encounter for education- Primary Counseling NOS 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) [facility]* Diagnosis Post-op pain Other acute postoperative pain Essential hypertension, benign Hyperlipidemia Other and unspecified hyperlipidemia Hypomagnesemia Disorders of magnesium metabolism Preop examination- Primary Preoperative examination, unspecified Diverticulitis Diverticulitis of colon (without mention of hemorrhage) Difficult intravenous access Other specified conditions influencing health status MVP (mitral valve prolapse) Mitral valve disorders Essential hypertension, benign Malignant neoplasm of lower-inner quadrant of left breast in female, estrogen receptor negative (HCC) Pre-op evaluation- Primary Preoperative examination, unspecified Difficult intravenous access Other specified conditions influencing health status PONV (postoperative nausea and vomiting) Nausea with vomiting Stage 3a chronic kidney disease (HCC) History of uterine cancer Personal history of malignant neoplasm of other parts of uterus History of partial colectomy MVP (mitral valve prolapse) Mitral valve disorders Essential hypertension, benign Other hyperlipidemia documented in this encounter [facility] note* Diagnosis Post-op pain Other acute postoperative pain Essential hypertension, benign Hyperlipidemia Other and unspecified hyperlipidemia Hypomagnesemia Disorders of magnesium metabolism Preop examination- Primary Preoperative examination, unspecified Diverticulitis Diverticulitis of colon (without mention of hemorrhage) Difficult intravenous access Other specified conditions influencing health status MVP (mitral valve prolapse) Mitral valve disorders Essential hypertension, benign Pre-op evaluation- Primary Preoperative examination, unspecified Difficult intravenous access Other specified conditions influencing health status PONV (postoperative nausea and vomiting) Nausea with vomiting Stage 3a chronic kidney disease (HCC) History of uterine cancer Personal history of malignant neoplasm of other parts of uterus History of partial colectomy MVP (mitral valve prolapse) Mitral valve disorders Essential hypertension, benign Other hyperlipidemia Malignant neoplasm of lower-inner quadrant of left breast in female, estrogen receptor negative (HCC)- Primary documented in this encounter [facility] note* Diagnosis Diverticulitis- Primary Diverticulitis of colon (without mention of hemorrhage) Post-op pain Other acute postoperative pain Essential hypertension, benign Hyperlipidemia Other and unspecified hyperlipidemia Hypomagnesemia Disorders of magnesium metabolism Preop examination- Primary Preoperative examination, unspecified Diverticulitis Diverticulitis of colon (without mention of hemorrhage) Difficult intravenous access Other specified conditions influencing health status MVP (mitral valve prolapse) Mitral valve disorders Essential hypertension, benign Pain of right hand Pain in limb Pre-op evaluation- Primary Preoperative examination, unspecified Difficult intravenous access Other specified conditions influencing health status PONV (postoperative nausea and vomiting) Nausea with vomiting Stage 3a chronic kidney disease (HCC) History of uterine cancer Personal history of malignant neoplasm of other parts of uterus History of partial colectomy MVP (mitral valve prolapse) Mitral valve disorders Essential hypertension, benign Other hyperlipidemia documented in this encounter [facility] note* Diagnosis Post-op pain Other acute postoperative pain Essential hypertension, benign Hyperlipidemia Other and unspecified hyperlipidemia Hypomagnesemia Disorders of magnesium metabolism Preop examination- Primary Preoperative examination, unspecified Diverticulitis Diverticulitis of colon (without mention of hemorrhage) Difficult intravenous access Other specified conditions influencing health status MVP (mitral valve prolapse) Mitral valve disorders Essential hypertension, benign Pre-op evaluation- Primary Preoperative examination, unspecified Difficult intravenous access Other specified conditions influencing health status PONV (postoperative nausea and vomiting) Nausea with vomiting Stage 3a chronic kidney disease (HCC) History of uterine cancer Personal history of malignant neoplasm of other parts of uterus History of partial colectomy MVP (mitral valve prolapse) Mitral valve disorders Essential hypertension, benign Other hyperlipidemia 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)- Primary [facility]* Diagnosis Post-op pain Other acute postoperative pain Essential hypertension, benign Hyperlipidemia Other and unspecified hyperlipidemia Hypomagnesemia Disorders of magnesium metabolism Preop examination- Primary Preoperative examination, unspecified Diverticulitis Diverticulitis of colon (without mention of hemorrhage) Difficult intravenous access Other specified conditions influencing health status MVP (mitral valve prolapse) Mitral valve disorders Essential hypertension, benign Pre-op evaluation- Primary Preoperative examination, unspecified Difficult intravenous access Other specified conditions influencing health status PONV (postoperative nausea and vomiting) Nausea with vomiting Stage 3a chronic kidney disease (HCC) History of uterine cancer Personal history of malignant neoplasm of other parts of uterus History of partial colectomy MVP (mitral valve prolapse) Mitral valve disorders Essential hypertension, benign Other hyperlipidemia At risk for lymphedema- Primary Other specified conditions influencing health status 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) documented in this encounter [facility] note* Diagnosis Post-op pain Other acute postoperative pain Essential hypertension, benign Hyperlipidemia Other and unspecified hyperlipidemia Hypomagnesemia Disorders of magnesium metabolism Preop examination- Primary Preoperative examination, unspecified Diverticulitis Diverticulitis of colon (without mention of hemorrhage) Difficult intravenous access Other specified conditions influencing health status MVP (mitral valve prolapse) Mitral valve disorders Essential hypertension, benign Pre-op evaluation- Primary Preoperative examination, unspecified Difficult intravenous access Other specified conditions influencing health status PONV (postoperative nausea and vomiting) Nausea with vomiting Stage 3a chronic kidney disease (HCC) History of uterine cancer Personal history of malignant neoplasm of other parts of uterus History of partial colectomy MVP (mitral valve prolapse) Mitral valve disorders Essential hypertension, benign Other hyperlipidemia Malignant neoplasm of lower-inner quadrant of left breast in female, estrogen receptor negative (HCC)- Primary documented [facility]* Diagnosis Post-op pain Other acute postoperative pain Essential hypertension, benign Hyperlipidemia Other and unspecified hyperlipidemia Hypomagnesemia Disorders of magnesium metabolism Preop examination- Primary Preoperative examination, unspecified Diverticulitis Diverticulitis of colon (without mention of hemorrhage) Difficult intravenous access Other specified conditions influencing health status MVP (mitral valve prolapse) Mitral valve disorders Essential hypertension, benign Pre-op evaluation- Primary Preoperative examination, unspecified Difficult intravenous access Other specified conditions influencing health status PONV (postoperative nausea and vomiting) Nausea with vomiting Stage 3a chronic kidney disease (HCC) History of uterine cancer Personal history of malignant neoplasm of other parts of uterus History of partial colectomy MVP (mitral valve prolapse) Mitral valve disorders Essential hypertension, benign Other hyperlipidemia Fever, unspecified fever cause- Primary documented [facility]* Diagnosis Post-op pain Other acute postoperative pain Essential hypertension, benign Hyperlipidemia Other and unspecified hyperlipidemia Hypomagnesemia Disorders of magnesium metabolism Preop examination- Primary Preoperative examination, unspecified Diverticulitis Diverticulitis of colon (without mention of hemorrhage) Difficult intravenous access Other specified conditions influencing health status MVP (mitral valve prolapse) Mitral valve disorders Essential hypertension, benign Pre-op evaluation- Primary Preoperative examination, unspecified Difficult intravenous access Other specified conditions influencing health status PONV (postoperative nausea and vomiting) Nausea with vomiting Stage 3a chronic kidney disease (HCC) History of uterine cancer Personal history of malignant neoplasm of other parts of uterus History of partial colectomy MVP (mitral valve prolapse) Mitral valve disorders Essential hypertension, benign Other hyperlipidemia 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)- Primary documented in this encounter [facility] note* Diagnosis Post-op pain Other acute postoperative pain Essential hypertension, benign Hyperlipidemia Other and unspecified hyperlipidemia Hypomagnesemia Disorders of magnesium metabolism Preop examination- Primary Preoperative examination, unspecified Diverticulitis Diverticulitis of colon (without mention of hemorrhage) Difficult intravenous access Other specified conditions influencing health status MVP (mitral valve prolapse) Mitral valve disorders Essential hypertension, benign Pre-op evaluation- Primary Preoperative examination, unspecified Difficult intravenous access Other specified conditions influencing health status PONV (postoperative nausea and vomiting) Nausea with vomiting Stage 3a chronic kidney disease (HCC) History of uterine cancer Personal history of malignant neoplasm of other parts of uterus History of partial colectomy MVP (mitral valve prolapse) Mitral valve disorders Essential hypertension, benign Other hyperlipidemia Malignant neoplasm of lower-inner quadrant of left breast in female, estrogen receptor negative (HCC)- Primary documented in this encounter [facility] note* Diagnosis Post-op pain Other acute postoperative pain Essential hypertension, benign Hyperlipidemia Other and unspecified hyperlipidemia Hypomagnesemia Disorders of magnesium metabolism Preop examination- Primary Preoperative examination, unspecified Diverticulitis Diverticulitis of colon (without mention of hemorrhage) Difficult intravenous access Other specified conditions influencing health status MVP (mitral valve prolapse) Mitral valve disorders Essential hypertension, benign Pre-op evaluation- Primary Preoperative examination, unspecified Difficult intravenous access Other specified conditions influencing health status PONV (postoperative nausea and vomiting) Nausea with vomiting Stage 3a chronic kidney disease (HCC) History of uterine cancer Personal history of malignant neoplasm of other parts of uterus History of partial colectomy MVP (mitral valve prolapse) Mitral valve disorders Essential hypertension, benign Other hyperlipidemia Malignant neoplasm of lower-inner quadrant of left breast in female, estrogen receptor negative (HCC)- Primary documented [facility]* Diagnosis Post-op pain Other acute postoperative pain Essential hypertension, benign Hyperlipidemia Other and unspecified hyperlipidemia Hypomagnesemia Disorders of magnesium metabolism Preop examination- Primary Preoperative examination, unspecified Diverticulitis Diverticulitis of colon (without mention of hemorrhage) Difficult intravenous access Other specified conditions influencing health status MVP (mitral valve prolapse) Mitral valve disorders Essential hypertension, benign Pre-op evaluation- Primary Preoperative examination, unspecified Difficult intravenous access Other specified conditions influencing health status PONV (postoperative nausea and vomiting) Nausea with vomiting Stage 3a chronic kidney disease (HCC) History of uterine cancer Personal history of malignant neoplasm of other parts of uterus History of partial colectomy MVP (mitral valve prolapse) Mitral valve disorders Essential hypertension, benign Other hyperlipidemia Malignant neoplasm of lower-inner quadrant of left breast in female, estrogen receptor negative (HCC)- Primary documented [facility]* Diagnosis Post-op pain Other acute postoperative pain Essential hypertension, benign Hyperlipidemia Other and unspecified hyperlipidemia Hypomagnesemia Disorders of magnesium metabolism Preop examination- Primary Preoperative examination, unspecified Diverticulitis Diverticulitis of colon (without mention of hemorrhage) Difficult intravenous access Other specified conditions influencing health status MVP (mitral valve prolapse) Mitral valve disorders Essential hypertension, benign Pre-op evaluation- Primary Preoperative examination, unspecified Difficult intravenous access Other specified conditions influencing health status PONV (postoperative nausea and vomiting) Nausea with vomiting Stage 3a chronic kidney disease (HCC) History of uterine cancer Personal history of malignant neoplasm of other parts of uterus History of partial colectomy MVP (mitral valve prolapse) Mitral valve disorders Essential hypertension, benign Other hyperlipidemia Essential hypertension, benign- Primary Other hyperlipidemia MVP (mitral valve prolapse) Mitral valve disorders Malignant neoplasm of lower-inner quadrant of left breast in female, estrogen receptor negative (HCC) Osteopenia of multiple sites At risk for lymphedema Other specified conditions influencing health status History of uterine cancer Personal history of malignant neoplasm of other parts of [facility] Post-[facility] pain Other acute postoperative pain Essential hypertension, benign Hyperlipidemia Other and unspecified hyperlipidemia Hypomagnesemia Disorders of magnesium metabolism Preop examination- Primary Preoperative examination, unspecified Diverticulitis Diverticulitis of colon (without mention of hemorrhage) Difficult intravenous access Other specified conditions influencing health status MVP (mitral valve prolapse) Mitral valve disorders Essential hypertension, benign Pre-op evaluation- Primary Preoperative examination, unspecified Difficult intravenous access Other specified conditions influencing health status PONV (postoperative nausea and vomiting) Nausea with vomiting Stage 3a chronic kidney disease (HCC) History of uterine cancer Personal history of malignant neoplasm of other parts of uterus History of partial colectomy MVP (mitral valve prolapse) Mitral valve disorders Essential hypertension, benign Other hyperlipidemia Malignant neoplasm of lower-inner quadrant of left breast in female, estrogen receptor negative (HCC)- Primary documented [facility]* Diagnosis Post-op pain Other acute postoperative pain Essential hypertension, benign Hyperlipidemia Other and unspecified hyperlipidemia Hypomagnesemia Disorders of magnesium metabolism Preop examination- Primary Preoperative examination, unspecified Diverticulitis Diverticulitis of colon (without mention of hemorrhage) Difficult intravenous access Other specified conditions influencing health status MVP (mitral valve prolapse) Mitral valve disorders Essential hypertension, benign Pre-op evaluation- Primary Preoperative examination, unspecified Difficult intravenous access Other specified conditions influencing health status PONV (postoperative nausea and vomiting) Nausea with vomiting Stage 3a chronic kidney disease (HCC) History of uterine cancer Personal history of malignant neoplasm of other parts of uterus History of partial colectomy MVP (mitral valve prolapse) Mitral valve disorders Essential hypertension, benign Other hyperlipidemia Malignant neoplasm of lower-inner quadrant of left breast in female, estrogen receptor negative (HCC)- Primary documented [facility]* Diagnosis Post-op pain Other acute postoperative pain Essential hypertension, benign Hyperlipidemia Other and unspecified hyperlipidemia Hypomagnesemia Disorders of magnesium metabolism Preop examination- Primary Preoperative examination, unspecified Diverticulitis Diverticulitis of colon (without mention of hemorrhage) Difficult intravenous access Other specified conditions influencing health status MVP (mitral valve prolapse) Mitral valve disorders Essential hypertension, benign Pre-op evaluation- Primary Preoperative examination, unspecified Difficult intravenous access Other specified conditions influencing health status PONV (postoperative nausea and vomiting) Nausea with vomiting Stage 3a chronic kidney disease (HCC) History of uterine cancer Personal history of malignant neoplasm of other parts of uterus History of partial colectomy MVP (mitral valve prolapse) Mitral valve disorders Essential hypertension, benign Other hyperlipidemia Malignant neoplasm of lower-inner quadrant of left breast in female, estrogen receptor negative (HCC)- Primary documented [facility]* Diagnosis Post-op pain Other acute postoperative pain Essential hypertension, benign Hyperlipidemia Other and unspecified hyperlipidemia Hypomagnesemia Disorders of magnesium metabolism Preop examination- Primary Preoperative examination, unspecified Diverticulitis Diverticulitis of colon (without mention of hemorrhage) Difficult intravenous access Other specified conditions influencing health status MVP (mitral valve prolapse) Mitral valve disorders Essential hypertension, benign Pre-op evaluation- Primary Preoperative examination, unspecified Difficult intravenous access Other specified conditions influencing health status PONV (postoperative nausea and vomiting) Nausea with vomiting Stage 3a chronic kidney disease (HCC) History of uterine cancer Personal history of malignant neoplasm of other parts of uterus History of partial colectomy MVP (mitral valve prolapse) Mitral valve disorders Essential hypertension, benign Other hyperlipidemia Malignant neoplasm of lower-inner quadrant of left breast in female, estrogen receptor negative (HCC)- Primary documented in this encounter [facility] note* Diagnosis Post-op pain Other acute postoperative pain Essential hypertension, benign Hyperlipidemia Other and unspecified hyperlipidemia Hypomagnesemia Disorders of magnesium metabolism Preop examination- Primary Preoperative examination, unspecified Diverticulitis Diverticulitis of colon (without mention of hemorrhage) Difficult intravenous access Other specified conditions influencing health status MVP (mitral valve prolapse) Mitral valve disorders Essential hypertension, benign Pre-op evaluation- Primary Preoperative examination, unspecified Difficult intravenous access Other specified conditions influencing health status PONV (postoperative nausea and vomiting) Nausea with vomiting Stage 3a chronic kidney disease (HCC) History of uterine cancer Personal history of malignant neoplasm of other parts of uterus History of partial colectomy MVP (mitral valve prolapse) Mitral valve disorders Essential hypertension, benign Other hyperlipidemia Malignant neoplasm of lower-inner quadrant of left breast in female, estrogen receptor negative (HCC)- Primary documented in this encounter [facility] note* Diagnosis Post-op pain Other acute postoperative pain Essential hypertension, benign Hyperlipidemia Other and unspecified hyperlipidemia Hypomagnesemia Disorders of magnesium metabolism Preop examination- Primary Preoperative examination, unspecified Diverticulitis Diverticulitis of colon (without mention of hemorrhage) Difficult intravenous access Other specified conditions influencing health status MVP (mitral valve prolapse) Mitral valve disorders Essential hypertension, benign Pre-op evaluation- Primary Preoperative examination, unspecified Difficult intravenous access Other specified conditions influencing health status PONV (postoperative nausea and vomiting) Nausea with vomiting Stage 3a chronic kidney disease (HCC) History of uterine cancer Personal history of malignant neoplasm of other parts of uterus History of partial colectomy MVP (mitral valve prolapse) Mitral valve disorders Essential hypertension, benign Other hyperlipidemia Malignant neoplasm of lower-inner quadrant of left breast in female, estrogen receptor negative (HCC)- [facility] Diagnosis Post-op pain Other acute postoperative pain Essential hypertension, benign Hyperlipidemia Other and unspecified hyperlipidemia Hypomagnesemia Disorders of magnesium metabolism Preop examination- Primary Preoperative examination, unspecified Diverticulitis Diverticulitis of colon (without mention of hemorrhage) Difficult intravenous access Other specified conditions influencing health status MVP (mitral valve prolapse) Mitral valve disorders Essential hypertension, benign Pre-op evaluation- Primary Preoperative examination, unspecified Difficult intravenous access Other specified conditions influencing health status PONV (postoperative nausea and vomiting) Nausea with vomiting Stage 3a chronic kidney disease (HCC) History of uterine cancer Personal history of malignant neoplasm of other parts of uterus History of partial colectomy MVP (mitral valve prolapse) Mitral valve disorders Essential hypertension, benign Other hyperlipidemia Malignant neoplasm of lower-inner quadrant of left breast in female, estrogen receptor negative (HCC)- [facility] Diagnosis Post-op pain Other acute postoperative pain Essential hypertension, benign Hyperlipidemia Other and unspecified hyperlipidemia Hypomagnesemia Disorders of magnesium metabolism Preop examination- Primary Preoperative examination, unspecified Diverticulitis Diverticulitis of colon (without mention of hemorrhage) Difficult intravenous access Other specified conditions influencing health status MVP (mitral valve prolapse) Mitral valve disorders Essential hypertension, benign Pre-op evaluation- Primary Preoperative examination, unspecified Difficult intravenous access Other specified conditions influencing health status PONV (postoperative nausea and vomiting) Nausea with vomiting Stage 3a chronic kidney disease (HCC) History of uterine cancer Personal history of malignant neoplasm of other parts of uterus History of partial colectomy MVP (mitral valve prolapse) Mitral valve disorders Essential hypertension, benign Other hyperlipidemia Malignant neoplasm of lower-inner quadrant of left breast in female, estrogen receptor negative (HCC)- Primary [facility] Diagnosis Post-op pain Other acute postoperative pain Essential hypertension, benign Hyperlipidemia Other and unspecified hyperlipidemia Hypomagnesemia Disorders of magnesium metabolism Preop examination- Primary Preoperative examination, unspecified Diverticulitis Diverticulitis of colon (without mention of hemorrhage) Difficult intravenous access Other specified conditions influencing health status MVP (mitral valve prolapse) Mitral valve disorders Essential hypertension, benign Pre-op evaluation- Primary Preoperative examination, unspecified Difficult intravenous access Other specified conditions influencing health status PONV (postoperative nausea and vomiting) Nausea with vomiting Stage 3a chronic kidney disease (HCC) History of uterine cancer Personal history of malignant neoplasm of other parts of uterus History of partial colectomy MVP (mitral valve prolapse) Mitral valve disorders Essential hypertension, benign Other hyperlipidemia Malignant neoplasm of lower-inner quadrant of left breast in female, estrogen receptor negative (HCC)- Primary documented in this encounter [facility] note* Diagnosis Post-op pain Other acute postoperative pain Essential hypertension, benign Hyperlipidemia Other and unspecified hyperlipidemia Hypomagnesemia Disorders of magnesium metabolism Preop examination- Primary Preoperative examination, unspecified Diverticulitis Diverticulitis of colon (without mention of hemorrhage) Difficult intravenous access Other specified conditions influencing health status MVP (mitral valve prolapse) Mitral valve disorders Essential hypertension, benign Pre-op evaluation- Primary Preoperative examination, unspecified Difficult intravenous access Other specified conditions influencing health status PONV (postoperative nausea and vomiting) Nausea with vomiting Stage 3a chronic kidney disease (HCC) History of uterine cancer Personal history of malignant neoplasm of other parts of uterus History of partial colectomy MVP (mitral valve prolapse) Mitral valve disorders Essential hypertension, benign Other hyperlipidemia Radiotherapy follow-up- Primary Radiotherapy follow-up examination Malignant neoplasm of lower-inner quadrant of left breast in female, estrogen receptor negative (HCC) documented in this encounter [facility] note* Diagnosis Post-op pain Other acute postoperative pain Essential hypertension, benign Hyperlipidemia Other and unspecified hyperlipidemia Hypomagnesemia Disorders of magnesium metabolism Preop examination- Primary Preoperative examination, unspecified Diverticulitis Diverticulitis of colon (without mention of hemorrhage) Difficult intravenous access Other specified conditions influencing health status MVP (mitral valve prolapse) Mitral valve disorders Essential hypertension, benign Pre-op evaluation- Primary Preoperative examination, unspecified Difficult intravenous access Other specified conditions influencing health status PONV (postoperative nausea and vomiting) Nausea with vomiting Stage 3a chronic kidney disease (HCC) History of uterine cancer Personal history of malignant neoplasm of other parts of uterus History of partial colectomy MVP (mitral valve prolapse) Mitral valve disorders Essential hypertension, benign Other hyperlipidemia Headache, unspecified headache type documented in this encounter [facility] note* Diagnosis Post-op pain Other acute postoperative pain Essential hypertension, benign Hyperlipidemia Other and unspecified hyperlipidemia Hypomagnesemia Disorders of magnesium metabolism Preop examination- Primary Preoperative examination, unspecified Diverticulitis Diverticulitis of colon (without mention of hemorrhage) Difficult intravenous access Other specified conditions influencing health status MVP (mitral valve prolapse) Mitral valve disorders Essential hypertension, benign Pre-op evaluation- Primary Preoperative examination, unspecified Difficult intravenous access Other specified conditions influencing health status PONV (postoperative nausea and vomiting) Nausea with vomiting Stage 3a chronic kidney disease (HCC) History of uterine cancer Personal history of malignant neoplasm of other parts of uterus History of partial colectomy MVP (mitral valve prolapse) Mitral valve disorders Essential hypertension, benign Other hyperlipidemia 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) Abnormal finding on breast imaging Other (abnormal) findings on radiological examination of breast [facility]* Diagnosis Post-op pain Other acute postoperative pain Essential hypertension, benign Hyperlipidemia Other and unspecified hyperlipidemia Hypomagnesemia Disorders of magnesium metabolism Preop examination- Primary Preoperative examination, unspecified Diverticulitis Diverticulitis of colon (without mention of hemorrhage) Difficult intravenous access Other specified conditions influencing health status MVP (mitral valve prolapse) Mitral valve disorders Essential hypertension, benign Pre-op evaluation- Primary Preoperative examination, unspecified Difficult intravenous access Other specified conditions influencing health status PONV (postoperative nausea and vomiting) Nausea with vomiting Stage 3a chronic kidney disease (HCC) History of uterine cancer Personal history of malignant neoplasm of other parts of uterus History of partial colectomy MVP (mitral valve prolapse) Mitral valve disorders Essential hypertension, benign Other hyperlipidemia Breast cancer screening, high risk patient- Primary Screening mammogram for high-risk patient Abnormal MRI, breast Other (abnormal) findings on radiological examination of breast Encounter for screening mammogram for malignant neoplasm of breast Other screening mammogram [facility] Diagnosis Post-op pain Other acute postoperative pain Essential hypertension, benign Hyperlipidemia Other and unspecified hyperlipidemia Hypomagnesemia Disorders of magnesium metabolism Preop examination- Primary Preoperative examination, unspecified Diverticulitis Diverticulitis of colon (without mention of hemorrhage) Difficult intravenous access Other specified conditions influencing health status MVP (mitral valve prolapse) Mitral valve disorders Essential hypertension, benign Pre-op evaluation- Primary Preoperative examination, unspecified Difficult intravenous access Other specified conditions influencing health status PONV (postoperative nausea and vomiting) Nausea with vomiting Stage 3a chronic kidney disease (HCC) History of uterine cancer Personal history of malignant neoplasm of other parts of uterus History of partial colectomy MVP (mitral valve prolapse) Mitral valve disorders Essential hypertension, benign Other hyperlipidemia Invasive ductal carcinoma of breast, female, left (HCC)- Primary 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) At risk for lymphedema Other specified conditions influencing health status [facility]* Diagnosis Post-op pain Other acute postoperative pain Essential hypertension, benign Hyperlipidemia Other and unspecified hyperlipidemia Hypomagnesemia Disorders of magnesium metabolism Preop examination- Primary Preoperative examination, unspecified Diverticulitis Diverticulitis of colon (without mention of hemorrhage) Difficult intravenous access Other specified conditions influencing health status MVP (mitral valve prolapse) Mitral valve disorders Essential hypertension, benign Pre-op evaluation- Primary Preoperative examination, unspecified Difficult intravenous access Other specified conditions influencing health status PONV (postoperative nausea and vomiting) Nausea with vomiting Stage 3a chronic kidney disease (HCC) History of uterine cancer Personal history of malignant neoplasm of other parts of uterus History of partial colectomy MVP (mitral valve prolapse) Mitral valve disorders Essential hypertension, benign Other hyperlipidemia 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) Malignant neoplasm of lower-inner quadrant of left breast in female, estrogen receptor negative (HCC) [facility]* Diagnosis Post-op pain Other acute postoperative pain Essential hypertension, benign Hyperlipidemia Other and unspecified hyperlipidemia Hypomagnesemia Disorders of magnesium metabolism Preop examination- Primary Preoperative examination, unspecified Diverticulitis Diverticulitis of colon (without mention of hemorrhage) Difficult intravenous access Other specified conditions influencing health status MVP (mitral valve prolapse) Mitral valve disorders Essential hypertension, benign Pre-op evaluation- Primary Preoperative examination, unspecified Difficult intravenous access Other specified conditions influencing health status PONV (postoperative nausea and vomiting) Nausea with vomiting Stage 3a chronic kidney disease (HCC) History of uterine cancer Personal history of malignant neoplasm of other parts of uterus History of partial colectomy MVP (mitral valve prolapse) Mitral valve disorders Essential hypertension, benign Other hyperlipidemia Soft tissue mass- Primary Disorders of soft tissue, unspecified History of breast cancer Personal history of malignant neoplasm of breast [facility]* Diagnosis Post-op pain Other acute postoperative pain Essential hypertension, benign Hyperlipidemia Other and unspecified hyperlipidemia Hypomagnesemia Disorders of magnesium metabolism Preop examination- Primary Preoperative examination, unspecified Diverticulitis Diverticulitis of colon (without mention of hemorrhage) Difficult intravenous access Other specified conditions influencing health status MVP (mitral valve prolapse) Mitral valve disorders Essential hypertension, benign Pre-op evaluation- Primary Preoperative examination, unspecified Difficult intravenous access Other specified conditions influencing health status PONV (postoperative nausea and vomiting) Nausea with vomiting Stage 3a chronic kidney disease (HCC) History of uterine cancer Personal history of malignant neoplasm of other parts of uterus History of partial colectomy MVP (mitral valve prolapse) Mitral valve disorders Essential hypertension, benign Other hyperlipidemia Soft tissue mass Disorders of soft tissue, unspecified History of breast cancer Personal history of malignant neoplasm of breast documented in this encounter [facility] note* Diagnosis Post-op pain Other acute postoperative pain Essential hypertension, benign Hyperlipidemia Other and unspecified hyperlipidemia Hypomagnesemia Disorders of magnesium metabolism Preop examination- Primary Preoperative examination, unspecified Diverticulitis Diverticulitis of colon (without mention of hemorrhage) Difficult intravenous access Other specified conditions influencing health status MVP (mitral valve prolapse) Mitral valve disorders Essential hypertension, benign Pre-op evaluation- Primary Preoperative examination, unspecified Difficult intravenous access Other specified conditions influencing health status PONV (postoperative nausea and vomiting) Nausea with vomiting Stage 3a chronic kidney disease (HCC) History of uterine cancer Personal history of malignant neoplasm of other parts of uterus History of partial colectomy MVP (mitral valve prolapse) Mitral valve disorders Essential hypertension, benign Other hyperlipidemia Breast cancer screening, high risk patient Screening mammogram for high-risk patient Encounter for screening mammogram for malignant neoplasm of breast Other screening mammogram documented in this encounter [facility] note* Diagnosis Post-op pain Other acute postoperative pain Essential hypertension, benign Hyperlipidemia Other and unspecified hyperlipidemia Hypomagnesemia Disorders of magnesium metabolism Preop examination- Primary Preoperative examination, unspecified Diverticulitis Diverticulitis of colon (without mention of hemorrhage) Difficult intravenous access Other specified conditions influencing health status MVP (mitral valve prolapse) Mitral valve disorders Essential hypertension, benign Pre-op evaluation- Primary Preoperative examination, unspecified Difficult intravenous access Other specified conditions influencing health status PONV (postoperative nausea and vomiting) Nausea with vomiting Stage 3a chronic kidney disease (HCC) History of uterine cancer Personal history of malignant neoplasm of other parts of uterus History of partial colectomy MVP (mitral valve prolapse) Mitral valve disorders Essential hypertension, benign Other hyperlipidemia Essential hypertension, benign- Primary Medicare annual wellness visit, subsequent Routine general medical examination at a health care facility Encounter for screening examination for other mental health and behavioral disorders Other hyperlipidemia History of partial colectomy History of uterine cancer Personal history of malignant neoplasm of other parts of uterus Malignant neoplasm of lower-inner quadrant of left breast in female, estrogen receptor negative (HCC) 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) Osteopenia of multiple sites Screening for depression [facility] Diagnosis Post-op pain Other acute postoperative pain Essential hypertension, benign Hyperlipidemia Other and unspecified hyperlipidemia Hypomagnesemia Disorders of magnesium metabolism Preop examination- Primary Preoperative examination, unspecified Diverticulitis Diverticulitis of colon (without mention of hemorrhage) Difficult intravenous access Other specified conditions influencing health status MVP (mitral valve prolapse) Mitral valve disorders Essential hypertension, benign Pre-op evaluation- Primary Preoperative examination, unspecified Difficult intravenous access Other specified conditions influencing health status PONV (postoperative nausea and vomiting) Nausea with vomiting Stage 3a chronic kidney disease (HCC) History of uterine cancer Personal history of malignant neoplasm of other parts of uterus History of partial colectomy MVP (mitral valve prolapse) Mitral valve disorders Essential hypertension, benign Other hyperlipidemia Psychological factor affecting cancer (HCC)- Primary Unspecified psychophysiological malfunction 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) Adjustment disorder with anxious mood Adjustment disorder with anxiety Insomnia, unspecified type [facility]* Diagnosis Post-op pain Other acute postoperative pain Essential hypertension, benign Hyperlipidemia Other and unspecified hyperlipidemia Hypomagnesemia Disorders of magnesium metabolism Preop examination- Primary Preoperative examination, unspecified Diverticulitis Diverticulitis of colon (without mention of hemorrhage) Difficult intravenous access Other specified conditions influencing health status MVP (mitral valve prolapse) Mitral valve disorders Essential hypertension, benign Pre-op evaluation- Primary Preoperative examination, unspecified Difficult intravenous access Other specified conditions influencing health status PONV (postoperative nausea and vomiting) Nausea with vomiting Stage 3a chronic kidney disease (HCC) History of uterine cancer Personal history of malignant neoplasm of other parts of uterus History of partial colectomy MVP (mitral valve prolapse) Mitral valve disorders Essential hypertension, benign Other hyperlipidemia Lumbar pain- Primary Lumbago Essential hypertension, benign Other hyperlipidemia Malignant neoplasm of lower-inner quadrant of left breast in female, estrogen receptor negative (HCC) 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) [facility]* Diagnosis Post-op pain Other acute postoperative pain Essential hypertension, benign Hyperlipidemia Other and unspecified hyperlipidemia Hypomagnesemia Disorders of magnesium metabolism Preop examination- Primary Preoperative examination, unspecified Diverticulitis Diverticulitis of colon (without mention of hemorrhage) Difficult intravenous access Other specified conditions influencing health status MVP (mitral valve prolapse) Mitral valve disorders Essential hypertension, benign Pre-op evaluation- Primary Preoperative examination, unspecified Difficult intravenous access Other specified conditions influencing health status PONV (postoperative nausea and vomiting) Nausea with vomiting Stage 3a chronic kidney disease (HCC) History of uterine cancer Personal history of malignant neoplasm of other parts of uterus History of partial colectomy MVP (mitral valve prolapse) Mitral valve disorders Essential hypertension, benign Other hyperlipidemia Lumbar pain Lumbago Malignant neoplasm of lower-inner quadrant of left breast in female, estrogen receptor negative (HCC) 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) [facility] Diagnosis Onset Date Resolution Status Admit Date Chest pain, unspecified chronic J kim 2024 11:12am Essential hypertension chronic Ju ly 2024 11:12am Nonrheumatic mitral (valve) prolapse chronic October 08, 2024 11:12am Pure hypercholesterolemia chronic October 08, 2024 11:12am [employer] Work Phone: [facility] ([facility]arrative)* Diagnostic Procedure Only (Routine) - Pending Review Specialty Diagnoses / Procedures Referred By Immanuel kowalski Referred To Contact [facility] Diagnoses Screening breast examination Encounter for screening mammogram for malignant neoplasm of breast Procedures ZAC SCREENING W QUE SCREENING DIGITAL BREAST TOMOSYNTHESIS BI SCREENING MAMMOGRAPHY BI 2-VIEW BREAST INC Luna Miller MD [address] [place] [address] [facility] [address] [place] [phone] Referral ID Status Reason Start Date Expiration Date Visits Requested Visits Authorized [id number] Pending Review Auto-Generat ed Referral 07/04/2021 08/03/2022 [address] [facility] for referral (narrative)* Diagnostic Procedure Only (Routine) - Closed Specialty Diagnoses / Procedures Referred By Immanuel kowalski Referred To Contact [facility] Diagnoses Screening breast examination Encounter for screening mammogram for malignant neoplasm of breast Procedures ZAC SCREENING W QUE SCREENING DIGITAL BREAST TOMOSYNTHESIS BI SCREENING MAMMOGRAPHY BI 2-VIEW BREAST INC Luna Miller MD [address] [place] [address] [facility] [address] [place] [address] Referral ID Status Reason Start Date Expiration Date V isits Requested Visits Authorized [id number] Closed Auto-Generate d Referral 07/04/2021 08/03/2022 [address] [facility] for referral (narrative)* Diagnostic Procedure Only (Routine) - Closed Specialty Diagnoses / Procedures Referred By Immanuel t Referred To Contact [facility] Diagnoses Pain of right hand Procedures XR HAND GENERAL 3V PA/LAT/OBL RIGHT RADEX HAND MINIMUM 3 [place] [address] [place] [id number] [facility] Referral ID Status Reason Start Date Expiration Date V isits Requested Visits Authorized [id number] Closed Auto-Generate d Referral 09/03/2022 10/03/2023 [address] [facility] for referral (narrative)* Diagnostic Procedure Only (Routine) - Closed Specialty Diagnoses / Procedures Referred By Immanuel kowalski Referred To Contact [facility] Diagnoses Encounter for screening mammogram for malignant neoplasm of breast Procedures ZAC SCREENING W QUE SCREENING DIGITAL BREAST TOMOSYNTHESIS BI SCREENING MAMMOGRAPHY BI 2-[place] [address] [place] [id number] [facility] [address] [place] [address] Referral ID Status Reason Start Date Expiration Date V isits Requested Visits Authorized [id number] Closed Auto-Generate d Referral 08/06/2022 09/05/2023 [address] [facility] for referral (narrative)* Outpatient Procedure (Routine) - Authorized Specialty Diagnoses / Procedures Referred By Immanuel t Referred To Contact [facility] Diagnoses LLQ pain History of partial colectomy Procedures COLONOSCOPY DIAGNOSTIC COLONOSCOPY FLX DX W/COLLJ SPEC WHEN PFRMD [place], Layla P, MD [address] [place] [address] [facility] [address] [place] [id number] Referral ID Status Reason Start Date Expiration Date Visits Requested Visits Authorized [id number] Authorized Auto-Generat ed Referral 06/25/2023 06/24/2024 [address] [facility] for referral (narrative)* Outpatient Procedure (Routine) - Closed Specialty Diagnoses / Procedures Referred By Immanuel t Referred To Contact [facility] Diagnoses LLQ pain History of partial colectomy Procedures COLONOSCOPY DIAGNOSTIC COLONOSCOPY FLX DX W/COLLJ SPEC WHEN Layla Ramirez MD [address] [place] [address] [facility] [address] [address] Referral ID Status Reason Start Date Expiration Date V isits Requested Visits Authorized [id number] Closed Auto-Generate d Referral 06/25/2023 06/24/2024 [address] [facility] for referral (narrative)* Diagnostic Procedure Only (Routine) - Authorized Specialty Diagnoses / Procedures Referred By Immanuel t Referred To Contact [facility] Diagnoses Encounter for screening mammogram for malignant neoplasm of breast Procedures ZAC SCREENING W QUE SCREENING DIGITAL BREAST TOMOSYNTHESIS BI SCREENING MAMMOGRAPHY BI 2-VIEW BREAST INC CAD Prisca, Luna Marinelli MD [address] [place] [address] [facility] [address] [place] [phone] Referral ID Status Reason Start Date Expiration Date Visits Requested Visits Authorized [id number] Authorized Auto-Generat ed Referral 08/14/2023 09/12/2024 1 1 * Diagnostic Procedure Only (Routine) - Authorized Specialty Diagnoses / Procedures Referred By Immanuel t Referred To Contact XR IMAGING Diagnoses Osteopenia of multiple sites Disorder of bone Procedures DXA-AXIAL SKELETON Luna Cope MD [address] [place] [address] X[id number] Referral ID Status Reason Start Date Expiration Date Visits Requested Visits Authorized [id number] Authorized Auto-Generat ed Referral 08/14/2023 09/12/2024 [address] [facility] for referral (narrative)* Diagnostic Procedure Only (Routine) - Pending Review Specialty Diagnoses / Procedures Referred By Immanuel kowalski Referred To Contact [facility] Diagnoses Inconclusive mammogram Procedures US BREAST LTD LEFT US BREAST UNI REAL TIME WITH IMAGE LIMITED Luna Cope MD [address] [place], [place] [id number] [facility] [address] [place] [phone] Referral ID Status Reason Start Date Expiration Date Visits Requested Visits Authorized [id number] Pending Review Auto-Generat ed Referral 08/23/2023 09/21/2024 1 1 * Diagnostic Procedure Only (Routine) - Pending Review Specialty Diagnoses / Procedures Referred By Immanuel kowalski Referred To Contact [facility] Diagnoses Inconclusive mammogram Procedures ZAC DIAGNOSTIC LEFT DIAGNOSTIC MAMMOGRAPHY COMPUTER-AIDED DETCJ UNI Luna Cope MD [address] [place] [address] [facility] [address] [place] [address] Referral ID Status Reason Start Date Expiration Date Visits Requested Visits Authorized [id number] Pending Review Auto-Generat ed Referral 08/23/2023 09/21/2024 [address] [facility] for referral (narrative)* Diagnostic Procedure Only (Routine) - Closed Specialty Diagnoses / Procedures Referred By Immanuel kowalski Referred To Contact [facility] Diagnoses Inconclusive mammogram Procedures US BREAST LTD LEFT US BREAST UNI REAL TIME WITH IMAGE LIMITED Luna Cope MD [address] [place] [address] [facility] [address] [place] [address] Referral ID Status Reason Start Date Expiration Date V isits Requested Visits Authorized [id number] Closed Auto-Generate d Referral 08/23/2023 09/21/2024 [address] [facility] for referral (narrative)* Diagnostic Procedure Only (Routine) - Closed Specialty Diagnoses / Procedures Referred By [facility] Referred To Contact [facility] Diagnoses Abnormal mammogram Procedures ZAC DIAGNOSTIC LEFT DIAGNOSTIC MAMMOGRAPHY COMPUTER-AIDED DETCJ Layla Casillas MD [address] [facility] [place] [address] [facility] [address] [place] [address] Referral ID Status Reason Start Date Expiration Date V isits Requested Visits Authorized [id number] Closed Auto-Generate d Referral 09/25/2023 10/24/2024 [address] [facility] for referral (narrative)* Diagnostic Procedure Only (Routine) - Closed Specialty Diagnoses / Procedures Referred By [facility] Referred To Contact [facility] Diagnoses Abnormal mammogram Procedures ZAC DIAGNOSTIC LEFT DIAGNOSTIC MAMMOGRAPHY COMPUTER-AIDED DETCJ Layla Casillas MD [address] [place] [address] [facility] [address] [place] [address] Referral ID Status Reason Start Date Expiration Date V isits Requested Visits Authorized [id number] Closed Auto-Generate d Referral 09/25/2023 10/24/2024 1 1 [facility] for referral (narrative)* Diagnostic Procedure Only (Routine) - New Request Specialty Diagnoses / Procedures Referred By [facility] Referred To Contact [facility] Diagnoses 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) Procedures ZAC NDL LOC W ZAC GD LEFT PERQ DEVICE PLACEMENT BREAST LOC 1ST LES W/GDNCE Pk Ramsey PA-C [address] [place] [address] [facility] [address] [place] [address] Referral ID Status Reason Start Date Expiration Date Visits Requested Visits Authorized [id number] New Request Auto-Generat ed Referral 10/14/2023 11/12/2024 [address] [facility] for referral (narrative)* Outpatient Procedure (Routine) - Closed Specialty Diagnoses / Procedures Referred By Contac t Referred To Contact [facility] [place] Diagnoses Pre-op evaluation Procedures ECG COMPLETE ECG ROUTINE ECG W/LEAST 12 LDS W/I&R Don Grijalva DIESEL ENGINE ENGINEER.MAORI PHYSIOTHERAPIST [address] [place] [address] [facility] [place] [address] [place] [address] Referral ID Status Reason Start Date Expiration Date V isits Requested Visits Authorized [id number] Closed Auto-Generate d Referral 10/23/2023 10/22/2024 [address] [facility] for referral (narrative)* Diagnostic Procedure Only (Routine) - Closed Specialty Diagnoses / Procedures Referred By Contac t Referred To Contact XR IMAGING Diagnoses Pain of right hand Procedures XR HAND GENERAL 3V PA/LAT/OBL RIGHT RADEX HAND MINIMUM 3 VIEWS Luna Cope MD [address] [place] [address] [place] [id number] Referral ID Status Reason Start Date Expiration Date V isits Requested Visits Authorized [id number] Closed Auto-Generate d Referral 09/03/2022 10/03/2023 [address] [facility] for referral (narrative)No reason for referral information [facility] Phone: Reason for visit Narrative* Diagnostic Procedure Only (Routine) - Closed Specialty Diagnoses / Procedures Referred By [facility] Referred To Contact [facility] Diagnoses Screening breast examination Encounter for screening mammogram for malignant neoplasm of breast Procedures ZAC SCREENING W QUE SCREENING DIGITAL BREAST TOMOSYNTHESIS BI SCREENING MAMMOGRAPHY BI 2-VIEW BREAST INC Luna Miller MD [address] [place] [address] [facility] [address] [place] [address] Referral ID Status Reason Start Date Expiration Date V isits Requested Visits Authorized [id number] Closed Auto-Generate d Referral 07/04/2021 08/03/2022 [address] [facility] for visit Narrative* Diagnostic Procedure Only (Routine) - Closed Specialty Diagnoses / Procedures Referred By Contac t Referred To Contact [facility] Diagnoses Encounter for screening mammogram for malignant neoplasm of breast Procedures ZAC SCREENING W QUE SCREENING DIGITAL BREAST TOMOSYNTHESIS BI SCREENING MAMMOGRAPHY BI 2-VIEW BREAST INC [facility] Luna Cope MD [address] [place] [address] [facility] [address] [place] [address] Referral ID Status Reason Start Date Expiration Date V isits Requested Visits Authorized [id number] Closed Auto-Generate d Referral 08/06/2022 09/05/2023 [address] [facility] for visit Narrative* Outpatient Procedure (Routine) - Closed Specialty Diagnoses / Procedures Referred By [facility] Referred To Contact [facility] Diagnoses LLQ pain History of partial colectomy Procedures COLONOSCOPY DIAGNOSTIC COLONOSCOPY FLX DX W/COLLJ SPEC WHEN PFRMD Layla Norris MD [address] [place] [address] [facility] [place] [address] [place] [address] Referral ID Status Reason Start Date Expiration Date V isits Requested Visits Authorized [id number] Closed Auto-Generate d Referral 06/25/2023 06/24/2024 [address] [facility] for visit Narrative* Diagnostic Procedure Only (Routine) - Closed Specialty Diagnoses / Procedures Referred By [facility] Referred To Contact XR IMAGING Diagnoses Osteopenia of multiple sites Disorder of bone Procedures DXA-AXIAL SKELETON Luna Cope MD [address] [place] [address] [facility] [address] Referral ID Status Reason Start Date Expiration Date V isits Requested Visits Authorized [id number] Closed Auto-Generate d Referral 08/14/2023 09/12/2024 [address] [facility] for visit Narrative* Diagnostic Procedure Only (Routine) - Closed Specialty Diagnoses / Procedures Referred By Contac t Referred To Contact [facility] Diagnoses Encounter for screening mammogram for malignant neoplasm of breast Procedures ZAC SCREENING W QUE SCREENING DIGITAL BREAST TOMOSYNTHESIS BI SCREENING MAMMOGRAPHY BI 2-VIEW BREAST INC CAD Luna Cope MD [address] [place] [address] [facility] [address] [place] [address] Referral ID Status Reason Start Date Expiration Date V isits Requested Visits Authorized [id number] Closed Auto-Generate d Referral 08/14/2023 09/12/2024 [address] [facility] for visit Narrative* Diagnostic Procedure Only (Routine) - Closed Specialty Diagnoses / Procedures Referred By Contac t Referred To Contact [facility] Diagnoses Inconclusive mammogram Procedures ZAC DIAGNOSTIC LEFT DIAGNOSTIC MAMMOGRAPHY COMPUTER-AIDED DETCJ Luna Peterson MD [address] [place] [address] [facility] [address] [place] [address] Referral ID Status Reason Start Date Expiration Date V isits Requested Visits Authorized [id number] Closed Auto-Generate d Referral 08/23/2023 09/21/2024 [address] [facility] for visit Narrative* Diagnostic Procedure Only (Routine) - Closed Specialty Diagnoses / Procedures Referred By Contac t Referred To Contact [facility] Diagnoses Abnormal mammogram Procedures ZAC DIAGNOSTIC LEFT DIAGNOSTIC MAMMOGRAPHY COMPUTER-AIDED DETCJ Layla Casillas MD [address] [place] [address] [facility] [address] [place] [address] Referral ID Status Reason Start Date Expiration Date V isits Requested Visits Authorized [id number] Closed Auto-Generate d Referral 09/25/2023 10/24/2024 [address] [facility] for visit Narrative* Diagnostic Procedure Only (Routine) - Closed Specialty Diagnoses / Procedures Referred By Contac t Referred To Contact [facility] Diagnoses 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) Procedures ZAC NDL LOC W ZAC GD LEFT PERQ DEVICE PLACEMENT BREAST LOC 1ST LES W/GDNCE Pk Ramsey PA-C [address] [place] [address] [facility] [address] [place] [address] Referral ID Status Reason Start Date Expiration Date V isits Requested Visits Authorized [id number] Closed Auto-Generate d Referral 10/14/2023 11/12/2024 [address] [facility] for visit Narrative* Diagnostic Procedure Only (Routine) - Closed Specialty Diagnoses / Procedures Referred By Contac t Referred To Contact XR IMAGING Diagnoses Pain of right hand Procedures XR HAND GENERAL 3V PA/LAT/OBL RIGHT RADEX HAND MINIMUM 3 VIEWS Luna Cope MD [address] [place] [address] [place] [id number] Referral ID Status Reason Start Date Expiration Date V isits Requested Visits Authorized [id number] Closed Auto-Generate d Referral 09/03/2022 10/03/2023 [address] [facility] for visit Narrative* MRI/CT (Routine) - Closed Specialty Diagnoses / Procedures Referred By Contac t Referred To Contact MR IMAGING Diagnoses 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) Abnormal finding on breast imaging Procedures MRI BREAST WO/W IVCON BILATERAL MRI BREAST WITHOUT&WITH CONTRAST W/CAD BILATERAL Pk Ramsey PA-C [address] [place] [address] Phone: tel: fax: [place] [id number] Referral ID Status Reason Start Date Expiration Date V isits Requested Visits Authorized [id number] Closed Auto-Generate d Referral 11/27/2023 12/26/2024 [address] [facility] for visit Narrative* Diagnostic Procedure Only (Routine) - Closed Specialty Diagnoses / Procedures Referred By Contac t Referred To Contact [facility] Diagnoses Breast cancer screening, high risk patient Encounter for screening mammogram for malignant neoplasm of breast Procedures ZAC SCREENING W QUE SCREENING DIGITAL BREAST TOMOSYNTHESIS BI SCREENING MAMMOGRAPHY BI 2-VIEW BREAST INC CAD Pk Ramsey PA-C [address] [place] [address] Phone: tel: fax: [facility] [address] [place] [address] Referral ID Status Reason Start Date Expiration Date V isits Requested Visits Authorized [id number] Closed Auto-Generate d Referral 06/03/2024 07/03/2025 [facility] Diagnostic Procedure Only (Routine) - Closed Specialty Diagnoses / Procedures Referred By Immanuel kowalski Referred To Contact XR IMAGING Diagnoses Lumbar pain Malignant neoplasm of lower-inner quadrant of left breast in female, estrogen receptor negative (HCC) 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) Procedures XR LUMBAR GENERAL 3V AP/LAT/L5-S1 RADEX SPINE LUMBOSACRAL 2/3 VIEWS Luna Cope MD [address] [place] [address] Phone: tel: fax: [place] [id number] Referral ID Status Reason Start Date Expiration Date V isits Requested Visits Authorized [id number] Closed Auto-Generate d Referral 10/05/2024 11/04/2025 1 1 [facility] Advance Directives No Advanced Directives Records FoundDocuments on File Type Date Recorded 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 Advance Directive(s) 03/22/2021 12:24 PM Advance Directive(s) 03/16/2021 7:50 AM Advance Directive(s) 03/09/2021 3:57 PM Advance Directive(s) 03/09/2021 4:02 PM Advance Directive(s) 01/01/2017 10:17 AM Documents on File Type Date Recorded 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 Advance Directive(s) 03/22/2021 12:24 PM Advance Directive(s) 03/16/2021 7:50 AM Advance Directive(s) 03/09/2021 3:57 PM Advance Directive(s) 03/09/2021 4:02 PM Advance Directive(s) 01/01/2017 10:17 AM Advance Directive Response Recorded Date/ Time Advance Directives No May 12:12am Living Will Yes December 18, 2020 7:42am Power of Asparagus Buncher Yes November 7:42am Advance Directive Response Recorded Date/ Time Advance Directives No May 11:12pm Living Will Yes December 18, 2020 6:42am Power of Asparagus Buncher Yes November 6:42am Advance Directive Response Recorded Date/ Time Advance Directives No May 12:12am Chief Complaint and Reason for Visit Chief Complaint Admit Date 6 M FU October 08, 2024 11:1 2am E-ORDER October 08, 2024 12:1 6pm Reason for Visit Admit Date Chest pain, unspecified October 08, 2024 11:12am Essential hypertension October 08, 2024 1 1:12am Nonrheumatic mitral (valve) prolapse Sep 11:12am Pure hypercholesterolemia October 08 11:12am Chief Complaint 9 M FU INT LABS Reason for Visit Essential hypertensi on Nonrheumatic mitral (valve) prolapse Pure hypercholesterolemia Chief Complaint EORDERS Chief Complaint Admit Date 6 M FU October 08, 2024 11:1 2am Family History No Family History Records Found Relationship Condition Age at Onset Recorded Date/T miles father Coronary artery disease Unknown Atrial fibrillation Unknown Hypertension Unknown Diabetes mellitus Unknown sister Myocardial infarction Unknown Reason for Referral Specialty Diagnoses / Procedures Referred By Immanuel kowalski Referred To Contact Orthopedics Diagnoses Pain of right hand Procedures CONSULT TO ORTHOPAEDICS OFFICE/OUTPATIENT NEW HIGH MDM 60-74 MINUTES Luna Cope MD [address] [place] [address] Referral ID Status Reason Start Date Expiration Date Visits Requested Visits Authorized [id number] Authorized PCP Requested Referral 3 02/13/2024 1 1 Specialty Diagnoses / Procedures Referred By Immanuel kowalski Referred To Contact CT IMAGING Diagnoses LLQ pain Left lower quadrant abdominal pain Procedures CT ABD/PEL W IVCON CT ABD & PELVIS W/CONTRAST Luna Cope MD [address] [place] [address] [place] [address] Referral ID Status Reason Start Date Expiration Date V isits Requested Visits Authorized [id number] Closed Auto-Generate d Referral 05/21/2023 06/19/2024 1 1 Specialty Diagnoses / Procedures Referred By Cotyac t Referred To Contact General Surgery Diagnoses LLQ pain History of partial colectomy Procedures CONSULT TO GENERAL SURGERY OFFICE/OUTPATIENT [facility] 60 MINUTES Luna Cope MD [address] [place] [address] Referral ID Status Reason Start Date Expiration Date Visits Requested Visits Authorized [id number] Authorized PCP Requested Referral 05/23/2023 05/22/2024 1 1 Specialty Diagnoses / Procedures Referred By Immanuel t Referred To Contact General Surgery Diagnoses Malignant neoplasm of lower-inner quadrant of left breast in female, estrogen receptor negative (HCC) Procedures CONSULT TO GENERAL SURGERY Layla Norris MD [address] [place] [address] Bessy/Whitley Sanchez [address] [place] [id number] Referral ID Status Reason Start Date Expiration Date Visits Requested Visits Authorized [id number] Ref Not Required PCP Requested Referral 10/09/2023 10/08/2024 1 1 Specialty Diagnoses / Procedures Referred By Immanuel kowalski Referred To Contact MR IMAGING Diagnoses Malignant neoplasm of lower-inner quadrant of left breast in female, estrogen receptor negative (HCC) Procedures MRI BREAST WO/W IVCON BILATERAL MRI BREAST WITHOUT&WITH CONTRAST W/[place] [address] [place] [address] Mr Imaging [place] [address] Referral ID Status Reason Start Date Expiration Date Visits Requested Visits Authorized [id number] Pending Review Auto-Generat ed Referral 10/09/2023 11/07/2024 1 1 Specialty Diagnoses / Procedures Referred By Immanuel kowalski Referred To Contact Diagnoses Malignant neoplasm of lower-inner quadrant of left breast in female, estrogen receptor negative (HCC) 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) Procedures CONSULT TO MEDICAL GENETICS - CANCER MEDICAL GENETICS COUNSELING EACH [address] [place] [address] [place] [address] [place] [address] [place] [phone] Referral ID Status Reason Start Date Expiration Date Visits Requested Visits Authorized [id number] Pending Review PCP Requested Referral Auto-Generate d Referral 10/13/2023 10/12/2024 1 1 Specialty Diagnoses / Procedures Referred By Contac t Referred To Contact Radiation Oncology Diagnoses Malignant neoplasm of lower-inner quadrant of left breast in female, estrogen receptor negative (HCC) 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) Procedures RAD/ONC CONSULT OFFICE/OUTPATIENT [facility] 60 [place] [address] [place] [phone] Referral ID Status Reason Start Date Expiration Date Visits Requested Visits Authorized [id number] Authorized PCP Requested Referral 10/13/2023 10/12/2024 1 1 Specialty Diagnoses / Procedures Referred By Contac t Referred To Contact Diagnoses Malignant neoplasm of lower-inner quadrant of left breast in female, estrogen receptor negative (HCC) 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) Procedures CONSULT TO HEMATOLOGY/ONCOLOGY OFFICE/OUTPATIENT [facility] [address] [place] [address] [place] [phone] Referral ID Status Reason Start Date Expiration Date Visits Requested Visits Authorized [id number] Authorized PCP Requested Referral 10/13/2023 01/11/2024 1 1 Specialty Diagnoses / Procedures Referred By Contac t Referred To Contact MR IMAGING Diagnoses Abnormal finding on breast imaging Procedures MRI BREAST BX WO/W IVCON RIGHT BX BREAST W/DEVICE 1ST LESION MAGNETIC RES Yolette Hamlin MD [address] [address] Mr Imaging [facility]95 Referral ID Status Reason Start Date Expiration Date Visits Requested Visits Authorized [id number] Authorized Auto-Generat ed Referral 10/21/2023 11/19/2024 1 1 Specialty Diagnoses / Procedures Referred By Contac t Referred To Contact MR IMAGING Diagnoses Abnormal finding on breast imaging Procedures MRI BREAST BX WO/W IVCON LEFT BX BREAST W/DEVICE 1ST LESION MAGNETIC RES Yolette Hamlin MD [address] [place] [id number] [place] [address] Mr Imaging [place] [address] Referral ID Status Reason Start Date Expiration Date Visits Requested Visits Authorized [id number] Authorized Auto-Generat ed Referral 10/21/2023 11/19/2024 1 1 Referral ID Status Reason Start Date Expiration Date V isits Requested Visits Authorized [id number] Closed Auto-Generate d Referral 10/21/2023 11/19/2024 1 1 Referral ID Status Reason Start Date Expiration Date V isits Requested Visits Authorized [id number] Closed Auto-Generate d Referral 10/21/2023 11/19/2024 1 1 Specialty Diagnoses / Procedures Referred By Contac t Referred To Contact [facility] Diagnoses 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) Procedures CONSULT TO BREAST REHAB PROGRAM THERAPEUTIC EXERCISES RE, EA 15 MIN. THERAPEUT ACTVITY DIRECT PT CONTACT EACH 15 MIN Pk Ramsey PA-C [address] [place] [address] [facility] [place] [address] Referral ID Status Reason Start Date Expiration Date Visits Requested Visits Authorized [id number] Authorized PCP Requested Referral Auto-Generate d Referral 11/27/2023 11/26/2024 99 99 Specialty Diagnoses / Procedures Referred By Cotyac t Referred To Contact MR IMAGING Diagnoses 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) Abnormal finding on breast imaging Procedures MRI BREAST WO/W IVCON BILATERAL MRI BREAST WITHOUT&WITH CONTRAST W/CAD BILATERAL Pk Ramsey PA-C [address] [place] [address] Mr Imaging [facility]95 Referral ID Status Reason Start Date Expiration Date Visits Requested Visits Authorized [id number] Authorized Auto-Generat ed Referral 11/27/2023 12/26/2024 1 1 Referral ID Status Reason Start Date Expiration Date V isits Requested Visits Authorized [id number] Closed Auto-Generate d Referral 10/09/2023 11/07/2024 1 1 Specialty Diagnoses / Procedures Referred By Contac t Referred To Contact Diagnoses Malignant neoplasm of lower-inner quadrant of left breast in female, estrogen receptor negative (HCC) Procedures CT SIM PLANNING RADIATION ONCOLOGY THER RAD [facility] FIELD SETTING COMPLEX Benson Pierre MD [address] [place] [address] Referral ID Status Reason Start Date Expiration Date Visits Requested Visits Authorized [id number] New Request PCP Requested Referral 4 06/08/2024 1 1 Summary Purpose Additional Source Comments Source Comments (unrecognize d section and content) In the event this informatio n is protected by the Federal Confidentiality of Alcohol and Drug Abuse Patient Records regulations: The Federal rules restrict any use of the information to criminally investigate or prosecute any alcohol or drug abuse patient.[facility] the event this information is protected by the Federal Confidentiality of Alcohol and Drug Abuse Patient Records regulations: The Federal rules restrict any use of the information to criminally investigate or prosecute any alcohol or drug abuse patient.[facility] HospitalIn the event this information is protected by the Federal Confidentiality of Alcohol and Drug Abuse Patient Records regulations: The Federal rules restrict any use of the information to criminally investigate or prosecute any alcohol or drug abuse patient.[facility] HospitalIn the event this information is protected by the Federal Confidentiality of Alcohol and Drug Abuse Patient Records regulations: The Federal rules restrict any use of the information to criminally investigate or prosecute any alcohol or drug abuse patient.[facility] HospitalIn the event this information is protected by the Federal Confidentiality of Alcohol and Drug Abuse Patient Records regulations: The Federal rules restrict any use of the information to criminally investigate or prosecute any alcohol or drug abuse patient.[facility] HospitalIn the event this information is protected by the Federal Confidentiality of Alcohol and Drug Abuse Patient Records regulations: The Federal rules restrict any use of the information to criminally investigate or prosecute any alcohol or drug abuse patient.[facility] HospitalIn the event this information is protected by the Federal Confidentiality of Alcohol and Drug Abuse Patient Records regulations: The Federal rules restrict any use of the information to criminally investigate or prosecute any alcohol or drug abuse patient.[facility] HospitalIn the event this information is protected by the Federal Confidentiality of Alcohol and Drug Abuse Patient Records regulations: The Federal rules restrict any use of the information to criminally investigate or prosecute any alcohol or drug abuse patient.[facility] HospitalIn the event this information is protected by the Federal Confidentiality of Alcohol and Drug Abuse Patient Records regulations: The Federal rules restrict any use of the information to criminally investigate or prosecute any alcohol or drug abuse patient.[facility] HospitalIn the event this information is protected by the Federal Confidentiality of Alcohol and Drug Abuse Patient Records regulations: The Federal rules restrict any use of the information to criminally investigate or prosecute any alcohol or drug abuse patient.[facility] HospitalIn the event this information is protected by the Federal Confidentiality of Alcohol and Drug Abuse Patient Records regulations: The Federal rules restrict any use of the information to criminally investigate or prosecute any alcohol or drug abuse patient.[facility] HospitalIn the event this information is protected by the Federal Confidentiality of Alcohol and Drug Abuse Patient Records regulations: The Federal rules restrict any use of the information to criminally investigate or prosecute any alcohol or drug abuse patient.[facility] HospitalIn the event this information is protected by the Federal Confidentiality of Alcohol and Drug Abuse Patient Records regulations: The Federal rules restrict any use of the information to criminally investigate or prosecute any alcohol or drug abuse patient.[facility] HospitalIn the event this information is protected by the Federal Confidentiality of Alcohol and Drug Abuse Patient Records regulations: The Federal rules restrict any use of the information to criminally investigate or prosecute any alcohol or drug abuse patient.[facility] HospitalIn the event this information is protected by the Federal Confidentiality of Alcohol and Drug Abuse Patient Records regulations: The Federal rules restrict any use of the information to criminally investigate or prosecute any alcohol or drug abuse patient.[facility] HospitalIn the event this information is protected by the Federal Confidentiality of Alcohol and Drug Abuse Patient Records regulations: The Federal rules restrict any use of the information to criminally investigate or prosecute any alcohol or drug abuse patient.[facility] HospitalIn the event this information is protected by the Federal Confidentiality of Alcohol and Drug Abuse Patient Records regulations: The Federal rules restrict any use of the information to criminally investigate or prosecute any alcohol or drug abuse patient.[facility] HospitalIn the event this information is protected by the Federal Confidentiality of Alcohol and Drug Abuse Patient Records regulations: The Federal rules restrict any use of the information to criminally investigate or prosecute any alcohol or drug abuse patient.[facility] HospitalIn the event this information is protected by the Federal Confidentiality of Alcohol and Drug Abuse Patient Records regulations: The Federal rules restrict any use of the information to criminally investigate or prosecute any alcohol or drug abuse patient.[facility] HospitalIn the event this information is protected by the Federal Confidentiality of Alcohol and Drug Abuse Patient Records regulations: The Federal rules restrict any use of the information to criminally investigate or prosecute any alcohol or drug abuse patient.[facility] HospitalIn the event this information is protected by the Federal Confidentiality of Alcohol and Drug Abuse Patient Records regulations: The Federal rules restrict any use of the information to criminally investigate or prosecute any alcohol or drug abuse patient.[facility] HospitalIn the event this information is protected by the Federal Confidentiality of Alcohol and Drug Abuse Patient Records regulations: The Federal rules restrict any use of the information to criminally investigate or prosecute any alcohol or drug abuse patient.[facility] HospitalIn the event this information is protected by the Federal Confidentiality of Alcohol and Drug Abuse Patient Records regulations: The Federal rules restrict any use of the information to criminally investigate or prosecute any alcohol or drug abuse patient.[facility] HospitalIn the event this information is protected by the Federal Confidentiality of Alcohol and Drug Abuse Patient Records regulations: The Federal rules restrict any use of the information to criminally investigate or prosecute any alcohol or drug abuse patient.[facility] HospitalIn the event this information is protected by the Federal Confidentiality of Alcohol and Drug Abuse Patient Records regulations: The Federal rules restrict any use of the information to criminally investigate or prosecute any alcohol or drug abuse patient.[facility] HospitalIn the event this information is protected by the Federal Confidentiality of Alcohol and Drug Abuse Patient Records regulations: The Federal rules restrict any use of the information to criminally investigate or prosecute any alcohol or drug abuse patient.[facility] HospitalIn the event this information is protected by the Federal Confidentiality of Alcohol and Drug Abuse Patient Records regulations: The Federal rules restrict any use of the information to criminally investigate or prosecute any alcohol or drug abuse patient.[facility] the event this information is protected by the Federal Confidentiality of Alcohol and Drug Abuse Patient Records regulations: The Federal rules restrict any use of the information to criminally investigate or prosecute any alcohol or drug abuse patient.[facility] HospitalIn the event this information is protected by the Federal Confidentiality of Alcohol and Drug Abuse Patient Records regulations: The Federal rules restrict any use of the information to criminally investigate or prosecute any alcohol or drug abuse patient.[facility] HospitalIn the event this information is protected by the Federal Confidentiality of Alcohol and Drug Abuse Patient Records regulations: The Federal rules restrict any use of the information to criminally investigate or prosecute any alcohol or drug abuse patient.[facility] the event this information is protected by the Federal Confidentiality of Alcohol and Drug Abuse Patient Records regulations: The Federal rules restrict any use of the information to criminally investigate or prosecute any alcohol or drug abuse patient.[facility] HospitalIn the event this information is protected by the Federal Confidentiality of Alcohol and Drug Abuse Patient Records regulations: The Federal rules restrict any use of the information to criminally investigate or prosecute any alcohol or drug abuse patient.[facility] HospitalIn the event this information is protected by the Federal Confidentiality of Alcohol and Drug Abuse Patient Records regulations: The Federal rules restrict any use of the information to criminally investigate or prosecute any alcohol or drug abuse patient.[facility] HospitalIn the event this information is protected by the Federal Confidentiality of Alcohol and Drug Abuse Patient Records regulations: The Federal rules restrict any use of the information to criminally investigate or prosecute any alcohol or drug abuse patient.[facility] HospitalIn the event this information is protected by the Federal Confidentiality of Alcohol and Drug Abuse Patient Records regulations: The Federal rules restrict any use of the information to criminally investigate or prosecute any alcohol or drug abuse patient.[facility] HospitalIn the event this information is protected by the Federal Confidentiality of Alcohol and Drug Abuse Patient Records regulations: The Federal rules restrict any use of the information to criminally investigate or prosecute any alcohol or drug abuse patient.[facility] HospitalIn the event this information is protected by the Federal Confidentiality of Alcohol and Drug Abuse Patient Records regulations: The Federal rules restrict any use of the information to criminally investigate or prosecute any alcohol or drug abuse patient.[facility] HospitalIn the event this information is protected by the Federal Confidentiality of Alcohol and Drug Abuse Patient Records regulations: The Federal rules restrict any use of the information to criminally investigate or prosecute any alcohol or drug abuse patient.[facility] HospitalIn the event this information is protected by the Federal Confidentiality of Alcohol and Drug Abuse Patient Records regulations: The Federal rules restrict any use of the information to criminally investigate or prosecute any alcohol or drug abuse patient.[facility] HospitalIn the event this information is protected by the Federal Confidentiality of Alcohol and Drug Abuse Patient Records regulations: The Federal rules restrict any use of the information to criminally investigate or prosecute any alcohol or drug abuse patient.[facility] HospitalIn the event this information is protected by the Federal Confidentiality of Alcohol and Drug Abuse Patient Records regulations: The Federal rules restrict any use of the information to criminally investigate or prosecute any alcohol or drug abuse patient.[facility] HospitalIn the event this information is protected by the Federal Confidentiality of Alcohol and Drug Abuse Patient Records regulations: The Federal rules restrict any use of the information to criminally investigate or prosecute any alcohol or drug abuse patient.[facility] HospitalIn the event this information is protected by the Federal Confidentiality of Alcohol and Drug Abuse Patient Records regulations: The Federal rules restrict any use of the information to criminally investigate or prosecute any alcohol or drug abuse patient.[facility] HospitalIn the event this information is protected by the Federal Confidentiality of Alcohol and Drug Abuse Patient Records regulations: The Federal rules restrict any use of the information to criminally investigate or prosecute any alcohol or drug abuse patient.[facility] HospitalIn the event this information is protected by the Federal Confidentiality of Alcohol and Drug Abuse Patient Records regulations: The Federal rules restrict any use of the information to criminally investigate or prosecute any alcohol or drug abuse patient.[facility] HospitalIn the event this information is protected by the Federal Confidentiality of Alcohol and Drug Abuse Patient Records regulations: The Federal rules restrict any use of the information to criminally investigate or prosecute any alcohol or drug abuse patient.[facility] HospitalIn the event this information is protected by the Federal Confidentiality of Alcohol and Drug Abuse Patient Records regulations: The Federal rules restrict any use of the information to criminally investigate or prosecute any alcohol or drug abuse patient.[facility] HospitalIn the event this information is protected by the Federal Confidentiality of Alcohol and Drug Abuse Patient Records regulations: The Federal rules restrict any use of the information to criminally investigate or prosecute any alcohol or drug abuse patient.[facility] HospitalIn the event this information is protected by the Federal Confidentiality of Alcohol and Drug Abuse Patient Records regulations: The Federal rules restrict any use of the information to criminally investigate or prosecute any alcohol or drug abuse patient.[facility] HospitalIn the event this information is protected by the Federal Confidentiality of Alcohol and Drug Abuse Patient Records regulations: The Federal rules restrict any use of the information to criminally investigate or prosecute any alcohol or drug abuse patient.[facility] HospitalIn the event this information is protected by the Federal Confidentiality of Alcohol and Drug Abuse Patient Records regulations: The Federal rules restrict any use of the information to criminally investigate or prosecute any alcohol or drug abuse patient.[facility] HospitalIn the event this information is protected by the Federal Confidentiality of Alcohol and Drug Abuse Patient Records regulations: The Federal rules restrict any use of the information to criminally investigate or prosecute any alcohol or drug abuse patient.[facility] HospitalIn the event this information is protected by the Federal Confidentiality of Alcohol and Drug Abuse Patient Records regulations: The Federal rules restrict any use of the information to criminally investigate or prosecute any alcohol or drug abuse patient.[facility] HospitalIn the event this information is protected by the Federal Confidentiality of Alcohol and Drug Abuse Patient Records regulations: The Federal rules restrict any use of the information to criminally investigate or prosecute any alcohol or drug abuse patient.[facility] HospitalIn the event this information is protected by the Federal Confidentiality of Alcohol and Drug Abuse Patient Records regulations: The Federal rules restrict any use of the information to criminally investigate or prosecute any alcohol or drug abuse patient.[facility] HospitalIn the event this information is protected by the Federal Confidentiality of Alcohol and Drug Abuse Patient Records regulations: The Federal rules restrict any use of the information to criminally investigate or prosecute any alcohol or drug abuse patient.[facility] HospitalIn the event this information is protected by the Federal Confidentiality of Alcohol and Drug Abuse Patient Records regulations: The Federal rules restrict any use of the information to criminally investigate or prosecute any alcohol or drug abuse patient.[facility] HospitalIn the event this information is protected by the Federal Confidentiality of Alcohol and Drug Abuse Patient Records regulations: The Federal rules restrict any use of the information to criminally investigate or prosecute any alcohol or drug abuse patient.[facility] HospitalIn the event this information is protected by the Federal Confidentiality of Alcohol and Drug Abuse Patient Records regulations: The Federal rules restrict any use of the information to criminally investigate or prosecute any alcohol or drug abuse patient.[facility] HospitalIn the event this information is protected by the Federal Confidentiality of Alcohol and Drug Abuse Patient Records regulations: The Federal rules restrict any use of the information to criminally investigate or prosecute any alcohol or drug abuse patient.[facility] HospitalIn the event this information is protected by the Federal Confidentiality of Alcohol and Drug Abuse Patient Records regulations: The Federal rules restrict any use of the information to criminally investigate or prosecute any alcohol or drug abuse patient.[facility] HospitalIn the event this information is protected by the Federal Confidentiality of Alcohol and Drug Abuse Patient Records regulations: The Federal rules restrict any use of the information to criminally investigate or prosecute any alcohol or drug abuse patient.[facility] HospitalIn the event this information is protected by the Federal Confidentiality of Alcohol and Drug Abuse Patient Records regulations: The Federal rules restrict any use of the information to criminally investigate or prosecute any alcohol or drug abuse patient.[facility] HospitalIn the event this information is protected by the Federal Confidentiality of Alcohol and Drug Abuse Patient Records regulations: The Federal rules restrict any use of the information to criminally investigate or prosecute any alcohol or drug abuse patient.[facility] HospitalIn the event this information is protected by the Federal Confidentiality of Alcohol and Drug Abuse Patient Records regulations: The Federal rules restrict any use of the information to criminally investigate or prosecute any alcohol or drug abuse patient.[facility] HospitalIn the event this information is protected by the Federal Confidentiality of Alcohol and Drug Abuse Patient Records regulations: The Federal rules restrict any use of the information to criminally investigate or prosecute any alcohol or drug abuse patient.[facility] HospitalIn the event this information is protected by the Federal Confidentiality of Alcohol and Drug Abuse Patient Records regulations: The Federal rules restrict any use of the information to criminally investigate or prosecute any alcohol or drug abuse patient.[facility] HospitalIn the event this information is protected by the Federal Confidentiality of Alcohol and Drug Abuse Patient Records regulations: The Federal rules restrict any use of the information to criminally investigate or prosecute any alcohol or drug abuse patient.[facility] HospitalIn the event this information is protected by the Federal Confidentiality of Alcohol and Drug Abuse Patient Records regulations: The Federal rules restrict any use of the information to criminally investigate or prosecute any alcohol or drug abuse patient.[facility] HospitalIn the event this information is protected by the Federal Confidentiality of Alcohol and Drug Abuse Patient Records regulations: The Federal rules restrict any use of the information to criminally investigate or prosecute any alcohol or drug abuse patient.[facility] HospitalIn the event this information is protected by the Federal Confidentiality of Alcohol and Drug Abuse Patient Records regulations: The Federal rules restrict any use of the information to criminally investigate or prosecute any alcohol or drug abuse patient.[facility] HospitalIn the event this information is protected by the Federal Confidentiality of Alcohol and Drug Abuse Patient Records regulations: The Federal rules restrict any use of the information to criminally investigate or prosecute any alcohol or drug abuse patient.[facility] HospitalIn the event this information is protected by the Federal Confidentiality of Alcohol and Drug Abuse Patient Records regulations: The Federal rules restrict any use of the information to criminally investigate or prosecute any alcohol or drug abuse patient.[facility] HospitalIn the event this information is protected by the Federal Confidentiality of Alcohol and Drug Abuse Patient Records regulations: The Federal rules restrict any use of the information to criminally investigate or prosecute any alcohol or drug abuse patient.[facility] HospitalIn the event this information is protected by the Federal Confidentiality of Alcohol and Drug Abuse Patient Records regulations: The Federal rules restrict any use of the information to criminally investigate or prosecute any alcohol or drug abuse patient.[facility] HospitalIn the event this information is protected by the Federal Confidentiality of Alcohol and Drug Abuse Patient Records regulations: The Federal rules restrict any use of the information to criminally investigate or prosecute any alcohol or drug abuse patient.[facility] HospitalIn the event this information is protected by the Federal Confidentiality of Alcohol and Drug Abuse Patient Records regulations: The Federal rules restrict any use of the information to criminally investigate or prosecute any alcohol or drug abuse patient.[facility] the event this information is protected by the Federal Confidentiality of Alcohol and Drug Abuse Patient Records regulations: The Federal rules restrict any use of the information to criminally investigate or prosecute any alcohol or drug abuse patient.[facility] HospitalIn the event this information is protected by the Federal Confidentiality of Alcohol and Drug Abuse Patient Records regulations: The Federal rules restrict any use of the information to criminally investigate or prosecute any alcohol or drug abuse patient.[facility] HospitalIn the event this information is protected by the Federal Confidentiality of Alcohol and Drug Abuse Patient Records regulations: The Federal rules restrict any use of the information to criminally investigate or prosecute any alcohol or drug abuse patient.[facility]In the event this information is protected by the Federal Confidentiality of Alcohol and Drug Abuse Patient Records regulations: The Federal rules restrict any use of the information to criminally investigate or prosecute any alcohol or drug abuse patient.[facility] HospitalIn the event this information is protected by the Federal Confidentiality of Alcohol and Drug Abuse Patient Records regulations: The Federal rules restrict any use of the information to criminally investigate or prosecute any alcohol or drug abuse patient.[facility] HospitalIn the event this information is protected by the Federal Confidentiality of Alcohol and Drug Abuse Patient Records regulations: The Federal rules restrict any use of the information to criminally investigate or prosecute any alcohol or drug abuse patient.[facility] HospitalIn the event this information is protected by the Federal Confidentiality of Alcohol and Drug Abuse Patient Records regulations: The Federal rules restrict any use of the information to criminally investigate or prosecute any alcohol or drug abuse patient.[facility] HospitalIn the event this information is protected by the Federal Confidentiality of Alcohol and Drug Abuse Patient Records regulations: The Federal rules restrict any use of the information to criminally investigate or prosecute any alcohol or drug abuse patient.[facility] HospitalIn the event this information is protected by the Federal Confidentiality of Alcohol and Drug Abuse Patient Records regulations: The Federal rules restrict any use of the information to criminally investigate or prosecute any alcohol or drug abuse patient.[facility] HospitalIn the event this information is protected by the Federal Confidentiality of Alcohol and Drug Abuse Patient Records regulations: The Federal rules restrict any use of the information to criminally investigate or prosecute any alcohol or drug abuse patient.[facility] HospitalIn the event this information is protected by the Federal Confidentiality of Alcohol and Drug Abuse Patient Records regulations: The Federal rules restrict any use of the information to criminally investigate or prosecute any alcohol or drug abuse patient.[facility] HospitalIn the event this information is protected by the Federal Confidentiality of Alcohol and Drug Abuse Patient Records regulations: The Federal rules restrict any use of the information to criminally investigate or prosecute any alcohol or drug abuse patient.[facility] HospitalIn the event this information is protected by the Federal Confidentiality of Alcohol and Drug Abuse Patient Records regulations: The Federal rules restrict any use of the information to criminally investigate or prosecute any alcohol or drug abuse patient.[facility] HospitalIn the event this information is protected by the Federal Confidentiality of Alcohol and Drug Abuse Patient Records regulations: The Federal rules restrict any use of the information to criminally investigate or prosecute any alcohol or drug abuse patient.[facility] HospitalIn the event this information is protected by the Federal Confidentiality of Alcohol and Drug Abuse Patient Records regulations: The Federal rules restrict any use of the information to criminally investigate or prosecute any alcohol or drug abuse patient.[facility] HospitalIn the event this information is protected by the Federal Confidentiality of Alcohol and Drug Abuse Patient Records regulations: The Federal rules restrict any use of the information to criminally investigate or prosecute any alcohol or drug abuse patient.[facility] HospitalIn the event this information is protected by the Federal Confidentiality of Alcohol and Drug Abuse Patient Records regulations: The Federal rules restrict any use of the information to criminally investigate or prosecute any alcohol or drug abuse patient.[facility] HospitalIn the event this information is protected by the Federal Confidentiality of Alcohol and Drug Abuse Patient Records regulations: The Federal rules restrict any use of the information to criminally investigate or prosecute any alcohol or drug abuse patient.[facility] HospitalIn the event this information is protected by the Federal Confidentiality of Alcohol and Drug Abuse Patient Records regulations: The Federal rules restrict any use of the information to criminally investigate or prosecute any alcohol or drug abuse patient.[facility] HospitalIn the event this information is protected by the Federal Confidentiality of Alcohol and Drug Abuse Patient Records regulations: The Federal rules restrict any use of the information to criminally investigate or prosecute any alcohol or drug abuse patient.[facility] HospitalIn the event this information is protected by the Federal Confidentiality of Alcohol and Drug Abuse Patient Records regulations: The Federal rules restrict any use of the information to criminally investigate or prosecute any alcohol or drug abuse patient.[facility] HospitalIn the event this information is protected by the Federal Confidentiality of Alcohol and Drug Abuse Patient Records regulations: The Federal rules restrict any use of the information to criminally investigate or prosecute any alcohol or drug abuse patient.[facility] HospitalIn the event this information is protected by the Federal Confidentiality of Alcohol and Drug Abuse Patient Records regulations: The Federal rules restrict any use of the information to criminally investigate or prosecute any alcohol or drug abuse patient.[facility] HospitalIn the event this information is protected by the Federal Confidentiality of Alcohol and Drug Abuse Patient Records regulations: The Federal rules restrict any use of the information to criminally investigate or prosecute any alcohol or drug abuse patient.[facility] HospitalIn the event this information is protected by the Federal Confidentiality of Alcohol and Drug Abuse Patient Records regulations: The Federal rules restrict any use of the information to criminally investigate or prosecute any alcohol or drug abuse patient.[facility] HospitalIn the event this information is protected by the Federal Confidentiality of Alcohol and Drug Abuse Patient Records regulations: The Federal rules restrict any use of the information to criminally investigate or prosecute any alcohol or drug abuse patient.[facility] HospitalIn the event this information is protected by the Federal Confidentiality of Alcohol and Drug Abuse Patient Records regulations: The Federal rules restrict any use of the information to criminally investigate or prosecute any alcohol or drug abuse patient.[facility] HospitalIn the event this information is protected by the Federal Confidentiality of Alcohol and Drug Abuse Patient Records regulations: The Federal rules restrict any use of the information to criminally investigate or prosecute any alcohol or drug abuse patient.[facility] HospitalIn the event this information is protected by the Federal Confidentiality of Alcohol and Drug Abuse Patient Records regulations: The Federal rules restrict any use of the information to criminally investigate or prosecute any alcohol or drug abuse patient.[facility] HospitalIn the event this information is protected by the Federal Confidentiality of Alcohol and Drug Abuse Patient Records regulations: The Federal rules restrict any use of the information to criminally investigate or prosecute any alcohol or drug abuse patient.[facility] HospitalIn the event this information is protected by the Federal Confidentiality of Alcohol and Drug Abuse Patient Records regulations: The Federal rules restrict any use of the information to criminally investigate or prosecute any alcohol or drug abuse patient.[facility] HospitalIn the event this information is protected by the Federal Confidentiality of Alcohol and Drug Abuse Patient Records regulations: The Federal rules restrict any use of the information to criminally investigate or prosecute any alcohol or drug abuse patient.[facility] HospitalIn the event this information is protected by the Federal Confidentiality of Alcohol and Drug Abuse Patient Records regulations: The Federal rules restrict any use of the information to criminally investigate or prosecute any alcohol or drug abuse patient.[facility] HospitalIn the event this information is protected by the Federal Confidentiality of Alcohol and Drug Abuse Patient Records regulations: The Federal rules restrict any use of the information to criminally investigate or prosecute any alcohol or drug abuse patient.[facility] HospitalIn the event this information is protected by the Federal Confidentiality of Alcohol and Drug Abuse Patient Records regulations: The Federal rules restrict any use of the information to criminally investigate or prosecute any alcohol or drug abuse patient.[facility] HospitalIn the event this information is protected by the Federal Confidentiality of Alcohol and Drug Abuse Patient Records regulations: The Federal rules restrict any use of the information to criminally investigate or prosecute any alcohol or drug abuse patient.[facility] HospitalIn the event this information is protected by the Federal Confidentiality of Alcohol and Drug Abuse Patient Records regulations: The Federal rules restrict any use of the information to criminally investigate or prosecute any alcohol or drug abuse patient.[facility] HospitalIn the event this information is protected by the Federal Confidentiality of Alcohol and Drug Abuse Patient Records regulations: The Federal rules restrict any use of the information to criminally investigate or prosecute any alcohol or drug abuse patient.[facility] HospitalIn the event this information is protected by the Federal Confidentiality of Alcohol and Drug Abuse Patient Records regulations: The Federal rules restrict any use of the information to criminally investigate or prosecute any alcohol or drug abuse patient.[facility] HospitalIn the event this information is protected by the Federal Confidentiality of Alcohol and Drug Abuse Patient Records regulations: The Federal rules restrict any use of the information to criminally investigate or prosecute any alcohol or drug abuse patient.[facility] HospitalIn the event this information is protected by the Federal Confidentiality of Alcohol and Drug Abuse Patient Records regulations: The Federal rules restrict any use of the information to criminally investigate or prosecute any alcohol or drug abuse patient.[facility] HospitalIn the event this information is protected by the Federal Confidentiality of Alcohol and Drug Abuse Patient Records regulations: The Federal rules restrict any use of the information to criminally investigate or prosecute any alcohol or drug abuse patient.[facility] HospitalIn the event this information is protected by the Federal Confidentiality of Alcohol and Drug Abuse Patient Records regulations: The Federal rules restrict any use of the information to criminally investigate or prosecute any alcohol or drug abuse patient.[facility] HospitalIn the event this information is protected by the Federal Confidentiality of Alcohol and Drug Abuse Patient Records regulations: The Federal rules restrict any use of the information to criminally investigate or prosecute any alcohol or drug abuse patient.[facility] HospitalIn the event this information is protected by the Federal Confidentiality of Alcohol and Drug Abuse Patient Records regulations: The Federal rules restrict any use of the information to criminally investigate or prosecute any alcohol or drug abuse patient.[facility] HospitalIn the event this information is protected by the Federal Confidentiality of Alcohol and Drug Abuse Patient Records regulations: The Federal rules restrict any use of the information to criminally investigate or prosecute any alcohol or drug abuse patient.[facility] HospitalIn the event this information is protected by the Federal Confidentiality of Alcohol and Drug Abuse Patient Records regulations: The Federal rules restrict any use of the information to criminally investigate or prosecute any alcohol or drug abuse patient.[facility] HospitalIn the event this information is protected by the Federal Confidentiality of Alcohol and Drug Abuse Patient Records regulations: The Federal rules restrict any use of the information to criminally investigate or prosecute any alcohol or drug abuse patient.[facility] HospitalIn the event this information is protected by the Federal Confidentiality of Alcohol and Drug Abuse Patient Records regulations: The Federal rules restrict any use of the information to criminally investigate or prosecute any alcohol or drug abuse patient.[facility] HospitalIn the event this information is protected by the Federal Confidentiality of Alcohol and Drug Abuse Patient Records regulations: The Federal rules restrict any use of the information to criminally investigate or prosecute any alcohol or drug abuse patient.[facility] the event this information is protected by the Federal Confidentiality of Alcohol and Drug Abuse Patient Records regulations: The Federal rules restrict any use of the information to criminally investigate or prosecute any alcohol or drug abuse patient.[facility] HospitalIn the event this information is protected by the Federal Confidentiality of Alcohol and Drug Abuse Patient Records regulations: The Federal rules restrict any use of the information to criminally investigate or prosecute any alcohol or drug abuse patient.[facility] HospitalIn the event this information is protected by the Federal Confidentiality of Alcohol and Drug Abuse Patient Records regulations: The Federal rules restrict any use of the information to criminally investigate or prosecute any alcohol or drug abuse patient.[facility]In the event this information is protected by the Federal Confidentiality of Alcohol and Drug Abuse Patient Records regulations: The Federal rules restrict any use of the information to criminally investigate or prosecute any alcohol or drug abuse patient.[facility] HospitalIn the event this information is protected by the Federal Confidentiality of Alcohol and Drug Abuse Patient Records regulations: The Federal rules restrict any use of the information to criminally investigate or prosecute any alcohol or drug abuse patient.[facility] HospitalIn the event this information is protected by the Federal Confidentiality of Alcohol and Drug Abuse Patient Records regulations: The Federal rules restrict any use of the information to criminally investigate or prosecute any alcohol or drug abuse patient.[facility] HospitalIn the event this information is protected by the Federal Confidentiality of Alcohol and Drug Abuse Patient Records regulations: The Federal rules restrict any use of the information to criminally investigate or prosecute any alcohol or drug abuse patient.[facility] HospitalIn the event this information is protected by the Federal Confidentiality of Alcohol and Drug Abuse Patient Records regulations: The Federal rules restrict any use of the information to criminally investigate or prosecute any alcohol or drug abuse patient.[facility] HospitalIn the event this information is protected by the Federal Confidentiality of Alcohol and Drug Abuse Patient Records regulations: The Federal rules restrict any use of the information to criminally investigate or prosecute any alcohol or drug abuse patient.[facility] HospitalIn the event this information is protected by the Federal Confidentiality of Alcohol and Drug Abuse Patient Records regulations: The Federal rules restrict any use of the information to criminally investigate or prosecute any alcohol or drug abuse patient.[facility] HospitalIn the event this information is protected by the Federal Confidentiality of Alcohol and Drug Abuse Patient Records regulations: The Federal rules restrict any use of the information to criminally investigate or prosecute any alcohol or drug abuse patient.[facility] HospitalIn the event this information is protected by the Federal Confidentiality of Alcohol and Drug Abuse Patient Records regulations: The Federal rules restrict any use of the information to criminally investigate or prosecute any alcohol or drug abuse patient.[facility] HospitalIn the event this information is protected by the Federal Confidentiality of Alcohol and Drug Abuse Patient Records regulations: The Federal rules restrict any use of the information to criminally investigate or prosecute any alcohol or drug abuse patient.[facility] HospitalIn the event this information is protected by the Federal Confidentiality of Alcohol and Drug Abuse Patient Records regulations: The Federal rules restrict any use of the information to criminally investigate or prosecute any alcohol or drug abuse patient.[facility] HospitalIn the event this information is protected by the Federal Confidentiality of Alcohol and Drug Abuse Patient Records regulations: The Federal rules restrict any use of the information to criminally investigate or prosecute any alcohol or drug abuse patient.[facility] HospitalIn the event this information is protected by the Federal Confidentiality of Alcohol and Drug Abuse Patient Records regulations: The Federal rules restrict any use of the information to criminally investigate or prosecute any alcohol or drug abuse patient.[facility] HospitalIn the event this information is protected by the Federal Confidentiality of Alcohol and Drug Abuse Patient Records regulations: The Federal rules restrict any use of the information to criminally investigate or prosecute any alcohol or drug abuse patient.[facility] HospitalIn the event this information is protected by the Federal Confidentiality of Alcohol and Drug Abuse Patient Records regulations: The Federal rules restrict any use of the information to criminally investigate or prosecute any alcohol or drug abuse patient.[facility] HospitalIn the event this information is protected by the Federal Confidentiality of Alcohol and Drug Abuse Patient Records regulations: The Federal rules restrict any use of the information to criminally investigate or prosecute any alcohol or drug abuse patient.[facility] HospitalIn the event this information is protected by the Federal Confidentiality of Alcohol and Drug Abuse Patient Records regulations: The Federal rules restrict any use of the information to criminally investigate or prosecute any alcohol or drug abuse patient.[facility] HospitalIn the event this information is protected by the Federal Confidentiality of Alcohol and Drug Abuse Patient Records regulations: The Federal rules restrict any use of the information to criminally investigate or prosecute any alcohol or drug abuse patient.[facility] Care Teams (unrecognized sec tion and content) Clothes Drier Assembler Relationship Specialty Start Date End Date Luna Cope MD [address], [place] [id number] PCP - General Family Practice 11/29/14 Clothes Drier Assembler Relationship Specialty Start Date End Date Luna Cope MD [address] [place], [place] [id number] PCP - General Family Practice 11/29/14 Clothes Drier Assembler Relationship Specialty Start Date End Date Luna Cope MD [address] [place], [place] [id number] PCP - General Family Practice 11/29/14 Clothes Drier Assembler Relationship Specialty Start Date End Date Luna Cope MD [address] [place] [address] PCP - General Family Practice 11/29/14 Clothes Drier Assembler Relationship Specialty Start Date End Date Luna Cope MD [address] [place] [address] PCP - General Family Practice 11/29/14 Clothes Drier Assembler Relationship Specialty Start Date End Date Luna Cope MD [address] [place] [address] PCP - General Family Practice 11/29/14 Clothes Drier Assembler Relationship Specialty Start Date End Date Luna Cope MD [address] [place] [address] PCP - General Family Practice 11/29/14 Clothes Drier Assembler Relationship Specialty Start Date End Date Luna Cope MD [address] [place] [address] PCP - General Family Medicine 11/29/14 Clothes Drier Assembler Relationship Specialty Start Date End Date Luna Cope MD [address] [place] [address] PCP - General Family Medicine 11/29/14 Crystal Fuentes, mine production engineerRisk Consultant 04/24/22 Clothes Drier Assembler Relationship Specialty Start Date End Date Luna Cope MD [address] [place] [address] PCP - General Family Medicine 11/29/14 Crystal Fuentes, mine production engineerRisk Consultant 04/24/22 Clothes Drier Assembler Relationship Specialty Start Date End Date Luna Cope MD [address] [place] [address] PCP - General Family Medicine 11/29/14 Crystal Fuentes RN Risk Consultant 04/24/22 Clothes Drier Assembler Relationship Specialty Start Date End Date Luna Cope MD [address] [place] [address] PCP - General Family Medicine 11/29/14 Crystal Fuentes RN Risk Consultant 04/24/22 Clothes Drier Assembler Relationship Specialty Start Date End Date Luna Cope MD [address] [place] [address] PCP - General Family Medicine 11/29/14 Crystal Fuentes RN Risk Consultant 04/24/22 Clothes Drier Assembler Relationship Specialty Start Date End Date Luna Cope MD [address] [place] [address] PCP - General Family Medicine 11/29/14 Crystal Fuentes RN Risk Consultant 04/24/22 Clothes Drier Assembler Relationship Specialty Start Date End Date Luna Cope MD [address] [place] [address] PCP - General Family Medicine 11/29/14 Crystal Fuentes RN Risk Consultant 04/24/22 Clothes Drier Assembler Relationship Specialty Start Date End Date Luna Cope MD [address] [place] [address] PCP - General Family Medicine 11/29/14 Crystal Fuentes RN Risk Consultant 04/24/22 Clothes Drier Assembler Relationship Specialty Start Date End Date Luna Cope MD [address] [place] [address] PCP - General Family Medicine 11/29/14 Crystal Fuentes, mine production engineerRisk Consultant 04/24/22 Clothes Drier Assembler Relationship Specialty Start Date End Date Luna Cope MD [address] [place] [address] PCP - General Family Medicine 11/29/14 Crystal Fuentes, mine production engineerRisk Consultant 04/24/22 Clothes Drier Assembler Relationship Specialty Start Date End Date Luna Cope MD [address] [place] [address] PCP - General Family Medicine 11/29/14 Crystal Fuentes, mine production engineerRisk Consultant 04/24/22 Clothes Drier Assembler Relationship Specialty Start Date End Date Luna Cope MD [address] [place] [address] PCP - General Family Medicine 11/29/14 Crystal Fuentes RN Risk Consultant 04/24/22 Clothes Drier Assembler Relationship Specialty Start Date End Date Luna Cope MD [address] [place] [address] PCP - General Family Medicine 11/29/14 Crystal Fuentes, mine production engineerRisk Consultant 04/24/22 Clothes Drier Assembler Relationship Specialty Start Date End Date Luna Cope MD [address] [place] [address] PCP - General Family Medicine 11/29/14 Crystal Fuentes RN Risk Consultant 04/24/22 Clothes Drier Assembler Relationship Specialty Start Date End Date Luna Cope MD [address] [place] [address] PCP - General Family Medicine 11/29/14 Crystal Fuentes RN Risk Consultant 04/24/22 Clothes Drier Assembler Relationship Specialty Start Date End Date Luna Cope MD [address] [place] [address] PCP - General Family Medicine 11/29/14 Crystal Fuentes, mine production engineerRisk Consultant 04/24/22 Clothes Drier Assembler Relationship Specialty Start Date End Date Luna Cope MD [address] [place] [address] PCP - General Family Medicine 11/29/14 Crystal Fuentes RN Risk Consultant 04/24/22 Clothes Drier Assembler Relationship Specialty Start Date End Date Luna Cope MD [address] [place] [address] PCP - General Family Medicine 11/29/14 Crystal Fuentes RN Risk Consultant 04/24/22 Clothes Drier Assembler Relationship Specialty Start Date End Date Luna Cope MD [address] [place] [address] PCP - General Family Medicine 11/29/14 Crystal Fuentes, mine production engineerRisk Consultant 04/24/22 Clothes Drier Assembler Relationship Specialty Start Date End Date Luna Cope MD [address] [place] [address] PCP - General Family Medicine 11/29/14 Crystal Fuentes RN Risk Consultant 04/24/22 Clothes Drier Assembler Relationship Specialty Start Date End Date Luna Cope MD [address] [place] [address] PCP - General Family Medicine 11/29/14 Crystal Fuentes RN Risk Consultant 04/24/22 Clothes Drier Assembler Relationship Specialty Start Date End Date Luna Cope MD [address] [place] [address] PCP - General Family Medicine 11/29/14 Crystal Fuentes RN Risk Consultant 04/24/22 Clothes Drier Assembler Relationship Specialty Start Date End Date Luna Cope MD [address] [place] [address] PCP - General Family Medicine 11/29/14 Crystal Fuentes RN Risk Consultant 04/24/22 Clothes Drier Assembler Relationship Specialty Start Date End Date Luna Cope MD [address] [place] [address] PCP - General Family Medicine 11/29/14 Crystal Fuentes RN Risk Consultant 04/24/22 Clothes Drier Assembler Relationship Specialty Start Date End Date Luna Cope MD [address] [place] [address] PCP - General Family Medicine 11/29/14 Crystal Fuentes RN Risk Consultant 04/24/22 Clothes Drier Assembler Relationship Specialty Start Date End Date Luna Cope MD [address] [place] [address] PCP - General Family Medicine 11/29/14 Crystal Fuentes RN Risk Consultant 04/24/22 Clothes Drier Assembler Relationship Specialty Start Date End Date Luna Cope MD [address] [facility] [place] [address] PCP - General Family Medicine 11/29/14 Crystal Fuentes RN Risk Consultant 04/24/22 Clothes Drier Assembler Relationship Specialty Start Date End Date Luna Cope MD [address] [facility] [place] [address] PCP - General Family Medicine 11/29/14 Crystal Fuentes RN Risk Consultant 04/24/22 Clothes Drier Assembler Relationship Specialty Start Date End Date Luna Cope MD [address] [place] [address] PCP - General Family Medicine 11/29/14 Crystal Fuentes, mine production engineerRisk Consultant 04/24/22 Clothes Drier Assembler Relationship Specialty Start Date End Date Luna Cope MD [address] [place] [address] PCP - General Family Medicine 11/29/14 Crystal Fuentes, mine production engineerRisk Consultant 04/24/22 Clothes Drier Assembler Relationship Specialty Start Date End Date Luna Cope MD [address] [place] [address] PCP - General Family Medicine 11/29/14 Crystal Fuentes, mine production engineerRisk Consultant 04/24/22 Clothes Drier Assembler Relationship Specialty Start Date End Date Luna Cope MD [address] [place] [address] PCP - General Family Medicine 11/29/14 Crystal Fuentes, mine production engineerRisk Consultant 04/24/22 Clothes Drier Assembler Relationship Specialty Start Date End Date Luna Cope MD [address] [place] [address] PCP - General Family Medicine 11/29/14 Crystal Fuentes, mine production engineerRisk Consultant 04/24/22 Benson Pierre MD [address] [place] [address] Radiation Oncology 10/18/23 Clothes Drier Assembler Relationship Specialty Start Date End Date Luna Cope MD [address] [place] [address] PCP - General Family Medicine 11/29/14 Crystal Fuentes, mine production engineerRisk Consultant 04/24/22 Benson Pierre MD [address] [place] [address] Radiation Oncology 10/18/23 Clothes Drier Assembler Relationship Specialty Start Date End Date Luna Cope MD [address] [place] [address] PCP - General Family Medicine 11/29/14 Crystal Fuentes mine production engineerRisk Consultant 04/24/22 Benson Pierre MD [address] [place] [address] Radiation Oncology 10/18/23 Clothes Drier Assembler Relationship Specialty Start Date End Date Luna Cope MD [address] [place] [address] PCP - General Family Medicine 11/29/14 Crystal Fuentes mine production engineerRisk Consultant 04/24/22 Benson Pierre MD [address] [place] [address] Radiation Oncology 10/18/23 Clothes Drier Assembler Relationship Specialty Start Date End Date Luna Cope MD [address] [place] [address] PCP - General Family Medicine 11/29/14 Crystal Fuentes, mine production engineerRisk Consultant 04/24/22 Benson Pierre MD [address] [place] [address] Radiation Oncology 10/18/23 Clothes Drier Assembler Relationship Specialty Start Date End Date Luna Cope MD [address] [place] [address] PCP - General Family Medicine 11/29/14 Crystal Fuentes mine production engineerRisk Consultant 04/24/22 Benson Pierre MD [address] [place] [address] Radiation Oncology 10/18/23 Clothes Drier Assembler Relationship Specialty Start Date End Date Luna Cope MD [address] [place] [address] PCP - General Family Medicine 11/29/14 Crystal Fuentes RN Risk Consultant 04/24/22 Benson Pierre MD [address] [place] [address] Radiation Oncology 10/18/23 Clothes Drier Assembler Relationship Specialty Start Date End Date Luna Cope MD [address] [place] [address] PCP - General Family Medicine 11/29/14 Crystal Fuentes mine production engineerRisk Consultant 04/24/22 Benson Pierre MD [address] [place] [address] Radiation Oncology 10/18/23 Clothes Drier Assembler Relationship Specialty Start Date End Date Luna Cope MD [address] [place] [address] PCP - General Family Medicine 11/29/14 Crystal Fuentes mine production engineerRisk Consultant 04/24/22 Benson Pierre MD [address] [place] [address] Radiation Oncology 10/18/23 Clothes Drier Assembler Relationship Specialty Start Date End Date Luna Cope MD [address] [place] [address] PCP - General Family Medicine 11/29/14 Crystal Fuentes, mine production engineerRisk Consultant 04/24/22 Benson Pierre MD [address] [place] [address] Radiation Oncology 10/18/23 Clothes Drier Assembler Relationship Specialty Start Date End Date Luna Cope MD [address] [place] [address] PCP - General Family Medicine 11/29/14 Crystal Fuentes, mine production engineerRisk Consultant 04/24/22 Benson Pierre MD [address] [place] [address] Radiation Oncology 10/18/23 Clothes Drier Assembler Relationship Specialty Start Date End Date Luna Cope MD [address] [place] [address] PCP - General Family Medicine 11/29/14 Crystal Fuentes, mine production engineerRisk Consultant 04/24/22 Benson Pierre MD [address] [place] [address] Radiation Oncology 10/18/23 Clothes Drier Assembler Relationship Specialty Start Date End Date Luna Cope MD [address] [place] [address] PCP - General Family Medicine 11/29/14 Benson Pierre MD [address] [place] [address] Radiation Oncology 10/18/23 Harleen Thomas, ABIEL [address] [place] [address] Risk Consultant Internal Medicine 11/12/23 Clothes Drier Assembler Relationship Specialty Start Date End Date Luna Cope MD [address] [place] [address] PCP - General Family Medicine 11/29/14 Benson Pierre MD [address] [place] [address] Radiation Oncology 10/18/23 Harleen Thomas, ABIEL [address] [place] [address] Risk Consultant Internal Medicine 11/12/23 Clothes Drier Assembler Relationship Specialty Start Date End Date Luna Cope MD [address] [place] [address] PCP - General Family Medicine 11/29/14 Benson Pierre MD [address] [place] [address] Radiation Oncology 10/18/23 Harleen Thomas RN [address] [place] [address] Risk Consultant Internal Medicine 11/12/23 Clothes Drier Assembler Relationship Specialty Start Date End Date Luna Cope MD [address] [place] [address] PCP - General Family Medicine 11/29/14 Benson Pierre MD [address] [place] [address] Radiation Oncology 10/18/23 Harleen Thomas, RN [address] [place] [address] Risk Consultant Internal Medicine 11/12/23 Clothes Drier Assembler Relationship Specialty Start Date End Date Luna Cope MD [address] [place] [address] PCP - General Family Medicine 11/29/14 Benson Pierre MD [address] [place] [address] Radiation Oncology 10/18/23 Harleen Thomas, ABIEL [address] [place] [address] Risk Consultant Internal Medicine 11/12/23 Clothes Drier Assembler Relationship Specialty Start Date End Date Luna Cope MD [address] [place] [address] PCP - General Family Medicine 11/29/14 Benson Pierre MD [address] [place] [address] Radiation Oncology 10/18/23 Harleen Thomas, RN [address] [place] [id number] Risk Consultant Internal Medicine 11/12/23 Clothes Drier Assembler Relationship Specialty Start Date End Date Luna Cope MD [address] [place] [address] PCP - General Family Medicine 11/29/14 Benson Pierre MD [address] [place] [address] Radiation Oncology 10/18/23 Harleen Thomas, ABIEL [address] [place] [address] Risk Consultant Internal Medicine 11/12/23 Clothes Drier Assembler Relationship Specialty Start Date End Date Luna Cope MD [address] [place] [address] PCP - General Family Medicine 11/29/14 Benson Pierre MD [address] [place] [address] Radiation Oncology 10/18/23 Harleen Thomas RN [address] [place] [address] Risk Consultant Internal Medicine 11/12/23 Clothes Drier Assembler Relationship Specialty Start Date End Date Luna Cope MD [address] [place] [address] PCP - General Family Medicine 11/29/14 Benson Pierre MD [address] [place] [address] Radiation Oncology 10/18/23 Harleen Thomas RN [address] [place] [address] Risk Consultant Internal Medicine 11/12/23 Clothes Drier Assembler Relationship Specialty Start Date End Date Luna Cope MD [address] [place] [address] PCP - General Family Medicine 11/29/14 Benson Pierre MD [address] [place] [address] Radiation Oncology 10/18/23 Harleen Thomas, RN [address] [place] [address] Risk Consultant Internal Medicine 11/12/23 Clothes Drier Assembler Relationship Specialty Start Date End Date Luna Cope MD [address] [place] [address] PCP - General Family Medicine 11/29/14 Benson Pierre MD [address] [place] [address] Radiation Oncology 10/18/23 Glen Iglesias MD [address] [place] [address] Hematology/Oncology 12/04/23 Brii Fernández RN [address] [place] [address] Specialty Experimental Physicist Hematology/Oncology 12/04/23 Clothes Drier Assembler Relationship Specialty Start Date End Date Luna Cope MD [address] [place] [address] PCP - General Family Medicine 11/29/14 Benson Pierre MD [address] [place] [address] Radiation Oncology 10/18/23 Glen Iglesias MD [address] [place] [address] Hematology/Oncology 12/04/23 Brii Fernández, ABIEL [address] [place] [address] Specialty Experimental Physicist Hematology/Oncology 12/04/23 Clothes Drier Assembler Relationship Specialty Start Date End Date Luna Cope MD [address] [place] [address] PCP - General Family Medicine 11/29/14 Crystal Fuentes, mine production engineerRisk Consultant 04/24/22 Benson Pierre MD [address] [place] [address] Radiation Oncology 10/18/23 Clothes Drier Assembler Relationship Specialty Start Date End Date Luna Cope MD [address] [place] [address] PCP - General Family Medicine 11/29/14 Benson Pierre MD [address] [place] [address] Radiation Oncology 10/18/23 Glen Iglesias MD [address] [place] [address] Hematology/Oncology 12/04/23 Brii Fernández, ABIEL [address] [place] [address] Specialty Experimental Physicist Hematology/Oncology 12/04/23 Clothes Drier Assembler Relationship Specialty Start Date End Date Luna Cope MD [address] [place] [address] PCP - General Family Medicine 11/29/14 Benson Pierre MD [address] [place] [address] Radiation Oncology 10/18/23 Glen Iglesias MD [address] [place] [address] Hematology/Oncology 12/04/23 Brii Fernández, ABIEL [address] [place] [address] Specialty Experimental Physicist Hematology/Oncology 12/04/23 Clothes Drier Assembler Relationship Specialty Start Date End Date Luna Cope MD [address] [place] [address] PCP - General Family Medicine 11/29/14 Crystal Fuentes, mine production engineerRisk Consultant 04/24/22 Clothes Drier Assembler Relationship Specialty Start Date End Date Luna Cope MD [address] [place] [address] PCP - General Family Medicine 11/29/14 Benson Pierre MD [address] [place] [address] Radiation Oncology 10/18/23 Glen Iglesias MD [address] [place] [address] Hematology/Oncology 12/04/23 Brii Fernández, ABIEL [address] [place] [address] Specialty Experimental Physicist Hematology/Oncology 12/04/23 Clothes Drier Assembler Relationship Specialty Start Date End Date Luna Cope MD [address] [place] [address] PCP - General Family Medicine 11/29/14 Benson Pierre MD [address] [place] [address] Radiation Oncology 10/18/23 Glen Iglesias MD [address] [place] [address] Hematology/Oncology 12/04/23 Brii Fernández, ABIEL [address] [place] [address] Specialty Experimental Physicist Hematology/Oncology 12/04/23 Clothes Drier Assembler Relationship Specialty Start Date End Date Luna Cope MD [address] [place] [address] PCP - General Family Medicine 11/29/14 Benson Pierre MD [address] [place] [address] Radiation Oncology 10/18/23 Glen Iglesias MD [address] [place] [address] Hematology/Oncology 12/04/23 Brii Fernández, ABIEL [address] [place] [address] Specialty Experimental Physicist Hematology/Oncology 12/04/23 Clothes Drier Assembler Relationship Specialty Start Date End Date Luna Cope MD [address] [place] [address] PCP - General Family Medicine 11/29/14 Benson Pierre MD [address] [place] [address] Radiation Oncology 10/18/23 Glen Iglesias MD [address] [place] [address] Hematology/Oncology 12/04/23 Brii Fernández RN [address] [place] [address] Specialty Experimental Physicist Hematology/Oncology 12/04/23 Clothes Drier Assembler Relationship Specialty Start Date End Date Luna Cope MD [address] [place] [address] PCP - General Family Medicine 11/29/14 Benson Pierre MD [address] [place] [address] Radiation Oncology 10/18/23 Glen Iglesias MD [address] [place] [address] Hematology/Oncology 12/04/23 Brii Fernández RN [address] [place] [address] Specialty Experimental Physicist Hematology/Oncology 12/04/23 Clothes Drier Assembler Relationship Specialty Start Date End Date Luna Cope MD [address] [place] [address] PCP - General Family Medicine 11/29/14 Benson Pierre MD [address] [place] [address] Radiation Oncology 10/18/23 Glen Iglesias MD [address] [place] [address] Hematology/Oncology 12/04/23 Brii Fernández RN [address] [place] [address] Specialty Experimental Physicist Hematology/Oncology 12/04/23 Clothes Drier Assembler Relationship Specialty Start Date End Date Luna Cope MD [address] [place] [address] PCP - General Family Medicine 11/29/14 Benson Pierre MD [address] [place] [address] Radiation Oncology 10/18/23 Glen Iglesias MD [address] [place] [address] Hematology/Oncology 12/04/23 Brii Fernández RN [address] [place] [address] Specialty Experimental Physicist Hematology/Oncology 12/04/23 Clothes Drier Assembler Relationship Specialty Start Date End Date Luna Cope MD [address] [place] [address] PCP - General Family Medicine 11/29/14 Benson Pierre MD [address] [place] [address] Radiation Oncology 10/18/23 Glen Iglesias MD [address] [place] [address] Hematology/Oncology 12/04/23 Brii Fernández RN [address] [place] [address] Specialty Experimental Physicist Hematology/Oncology 12/04/23 Clothes Drier Assembler Relationship Specialty Start Date End Date Luna Cope MD [address] [place] [address] PCP - General Family Medicine 11/29/14 Benson Pierre MD [address] [place] [address] Radiation Oncology 10/18/23 Glen Iglesias MD [address] [place] [address] Hematology/Oncology 12/04/23 Brii Fernández, ABIEL [address] [place] [address] Specialty Experimental Physicist Hematology/Oncology 12/04/23 Clothes Drier Assembler Relationship Specialty Start Date End Date Luna Cope MD [address] [place] [address] PCP - General Family Medicine 11/29/14 Benson Pierre MD [address] [place] [address] Radiation Oncology 10/18/23 Glen Iglesias MD [address] [place] [address] Hematology/Oncology 12/04/23 Brii Fernández, ABIEL [address] [place] [address] Specialty Experimental Physicist Hematology/Oncology 12/04/23 Clothes Drier Assembler Relationship Specialty Start Date End Date Luna Cope MD [address] [place] [address] PCP - General Family Medicine 11/29/14 Benson Pierre MD [address] [place] [address] Radiation Oncology 10/18/23 Glen Iglesias MD [address] [place] [address] Hematology/Oncology 12/04/23 Brii Fernández, ABIEL [address] [place] [address] Specialty Experimental Physicist Hematology/Oncology 12/04/23 Kimberley Renee APRN.MAORI PHYSIOTHERAPIST [address] [place] [address] Dictating Machine Transcriber Family Medicine 03/09/24 Pamela Lay APRN.MAORI PHYSIOTHERAPIST [address] [place] [address] Dictating Machine Transcriber Family Medicine 03/09/24 Clothes Drier Assembler Relationship Specialty Start Date End Date Luna Cope MD [address] [place] [address] PCP - General Family Medicine 11/29/14 Benson Pierre MD [address] [place] [address] Radiation Oncology 10/18/23 Glen Iglesias MD [address] [place] [address] Hematology/Oncology 12/04/23 Brii Fernández RN [address] [place] [address] Specialty Experimental Physicist Hematology/Oncology 12/04/23 Kimberley Renee APRN.MAORI PHYSIOTHERAPIST [address] [place] [address] Dictating Machine Transcriber Family Medicine 03/09/24 Pamela Lay APRN.MAORI PHYSIOTHERAPIST [address] [place] [address] [facility] Family Medicine 03/09/24 Clothes Drier Assembler Relationship Specialty Start Date End Date Luna Cope MD [address] [place] [address] PCP - General Family Medicine 11/29/14 Benson Pierre MD [address] [place] [address] Radiation Oncology 10/18/23 Glen Iglesias MD [address] [place] [address] Hematology/Oncology 12/04/23 Brii Fernández RN [address] [place] [address] Specialty Experimental Physicist Hematology/Oncology 12/04/23 Kimberley Renee APRN.MAORI PHYSIOTHERAPIST [address] [place] [address] [facility] Family Medicine 03/09/24 Pamela Lay APRN.MAORI PHYSIOTHERAPIST [address] [place] [address] Dictating Machine Transcriber Family Medicine 03/09/24 Clothes Drier Assembler Relationship Specialty Start Date End Date Luna Cope MD [address] [place] [address] PCP - General Family Medicine 11/29/14 Benson Pierre MD [address] [place] [address] Radiation Oncology 10/18/23 Glen Iglesias MD [address] [place] [address] Hematology/Oncology 12/04/23 Brii Fernández RN [address] [place] [address] Specialty Experimental Physicist Hematology/Oncology 12/04/23 Kimberley Renee, DIESEL ENGINE ENGINEER.MAORI PHYSIOTHERAPIST [address] [place] [address] Dictating Machine Transcriber Family Medicine 03/09/24 Pamela Lay, DIESEL ENGINE ENGINEER.MAORI PHYSIOTHERAPIST [address] [place] [address] Dictating Machine Transcriber Family Medicine 03/09/24 Clothes Drier Assembler Relationship Specialty Start Date End Date Luna Cope MD [address] [place] [address] PCP - General Family Medicine 11/29/14 Benson Pierre MD [address] [place] [address] Radiation Oncology 10/18/23 Glen Iglesias MD [address] [place] [address] Hematology/Oncology 12/04/23 Brii Fernández RN [address] [place] [address] Specialty Experimental Physicist Hematology/Oncology 12/04/23 Kimberley Renee APRN.MAORI PHYSIOTHERAPIST [address] [place] [address] Dictating Machine Transcriber Family Medicine 03/09/24 Pamela Lay APRN.MAORI PHYSIOTHERAPIST [address] [place] [address] [facility] Family Medicine 03/09/24 Clothes Drier Assembler Relationship Specialty Start Date End Date Luna Cope MD [address] [place] [address] PCP - General Family Medicine 11/29/14 Benson Pierre MD [address] [place] [address] Radiation Oncology 10/18/23 Glen Iglesias MD [address] [place] [address] Hematology/Oncology 12/04/23 Brii Fernández RN [address] [place] [address] Specialty Experimental Physicist Hematology/Oncology 12/04/23 Kimberley Renee APRN.MAORI PHYSIOTHERAPIST [address] [place] [address] Dictating Machine Transcriber Family Medicine 03/09/24 Pamela Lay DIESEL ENGINE ENGINEER.MAORI PHYSIOTHERAPIST [address] [place] [address] Dictating Machine Transcriber Family Medicine 03/09/24 Clothes Drier Assembler Relationship Specialty Start Date End Date Luna Cope MD [address] [place] [address] PCP - General Family Medicine 11/29/14 Benson Pierre MD [address] [place] [address] Radiation Oncology 10/18/23 Glen Iglesias MD [address] [place] [address] Hematology/Oncology 12/04/23 Brii Fernández RN [address] [place] [address] Specialty Experimental Physicist Hematology/Oncology 12/04/23 Kimberley Renee APRN.MAORI PHYSIOTHERAPIST [address] [place] [address] Dictating Machine Transcriber Family Medicine 03/09/24 Pamela Lay DIESEL ENGINE ENGINEER.MAORI PHYSIOTHERAPIST [address] [place] [address] Dictating Machine Transcriber Family Medicine 03/09/24 Clothes Drier Assembler Relationship Specialty Start Date End Date Luna Cope MD [address] [place] [address] PCP - General Family Medicine 11/29/14 Benson Pierre MD [address] [place] [address] Radiation Oncology 10/18/23 Glen Iglesias MD [address] [place] [address] Hematology/Oncology 12/04/23 Brii Fernández, ABIEL [address] [place] [address] Specialty Experimental Physicist Hematology/Oncology 12/04/23 Kimberley Renee APRN.MAORI PHYSIOTHERAPIST [address] [place] [address] [facility] 03/09/24 Pamela Lay APRN.MAORI PHYSIOTHERAPIST [address] [place] [address] [facility] 03/09/24 Clothes Drier Assembler Relationship Specialty Start Date End Date Luna Cope MD [address] [place] [address] PCP - General Family Medicine 11/29/14 Besnon Pierre MD [address] [place] [address] Radiation Oncology 10/18/23 Glen Iglesias MD [address] [place] [address] Hematology/Oncology 12/04/23 Brii Fernández, RN [address] [place] [address] Specialty Experimental Physicist Hematology/Oncology 12/04/23 Kimberley Renee APRN.MAORI PHYSIOTHERAPIST [address] [place] [address] Dictating Machine Transcriber Family Medicine 03/09/24 Pamela Lay APRN.MAORI PHYSIOTHERAPIST [address] [place] [address] Dictating Machine Transcriber Family Medicine 03/09/24 Clothes Drier Assembler Relationship Specialty Start Date End Date Luna Cope MD [address] [place] [address] PCP - General Family Medicine 11/29/14 Benson Pierre MD [address] [place] [address] Radiation Oncology 10/18/23 Glen Iglesias MD [address] [place] [address] Hematology/Oncology 12/04/23 Brii Fernández RN [address] [place] [address] Specialty Experimental Physicist Hematology/Oncology 12/04/23 Kimberley Renee APRN.MAORI PHYSIOTHERAPIST [address] [place] [address] Dictating Machine Transcriber Family Medicine 03/09/24 Pamela Lay APRN.MAORI PHYSIOTHERAPIST [address] [place] [address] Dictating Machine Transcriber Family Medicine 03/09/24 Clothes Drier Assembler Relationship Specialty Start Date End Date Luna Cope MD [address] [place] [address] PCP - General Family Medicine 11/29/14 Benson Pierre MD [address] [place] [address] Radiation Oncology 10/18/23 Glen Iglesias MD [address] [place] [address] Hematology/Oncology 12/04/23 Brii Fernández, ABIEL [address] [place] [address] Specialty Experimental Physicist Hematology/Oncology 12/04/23 iKmberley Renee APRN.MAORI PHYSIOTHERAPIST [address] [place] [address] Dictating Machine Transcriber Family Medicine 03/09/24 Pamela Lay, DIESEL ENGINE ENGINEER.MAORI PHYSIOTHERAPIST [address] [place] [address] Dictating Machine Transcriber Family Medicine 03/09/24 Clothes Drier Assembler Relationship Specialty Start Date End Date Luna Cope MD [address] [place] [address] PCP - General Family Medicine 11/29/14 Benson Pierre MD [address] [place] [address] Radiation Oncology 10/18/23 Glen Iglesias MD [address] [place] [address] Hematology/Oncology 12/04/23 Brii Fernández, ABIEL [address] [place] [address] Specialty Experimental Physicist Hematology/Oncology 12/04/23 Kimberley Renee APRN.MAORI PHYSIOTHERAPIST [address] [place] [address] Dictating Machine Transcriber Family Medicine 03/09/24 Pamela Lay APRN.MAORI PHYSIOTHERAPIST [address] [place] [address] Dictating Machine Transcriber Family Medicine 03/09/24 Clothes Drier Assembler Relationship Specialty Start Date End Date Luna Cope MD [address] [place] [address] PCP - General Family Medicine 11/29/14 Benson Pierre MD [address] [place] [address] Radiation Oncology 10/18/23 Glen Iglesias MD [address] [place] [address] Hematology/Oncology 12/04/23 Brii Fernández, ABIEL [address] [place] [address] Specialty Experimental Physicist Hematology/Oncology 12/04/23 Kimberley Renee APRN.MAORI PHYSIOTHERAPIST [address] [place] [address] Dictating Machine Transcriber Family Medicine 03/09/24 Pamela Lay DIESEL ENGINE ENGINEER.MAORI PHYSIOTHERAPIST [address] [place] [address] Dictating Machine Transcriber Family Medicine 03/09/24 Clothes Drier Assembler Relationship Specialty Start Date End Date Luna Cope MD [address] [place] [address] PCP - General Family Medicine 11/29/14 Benson Pierre MD [address] [place] [address] Radiation Oncology 10/18/23 Glen Iglesias MD [address] [place] [address] Hematology/Oncology 12/04/23 Brii Fernández RN [address] [place] [address] Specialty Experimental Physicist Hematology/Oncology 12/04/23 Kimberley Renee APRN.MAORI PHYSIOTHERAPIST [address] [place] [address] Dictating Machine Transcriber Family Medicine 03/09/24 Pamela Lay DIESEL ENGINE ENGINEER.MAORI PHYSIOTHERAPIST [address] [place] [address] Dictating Machine Transcriber Family Medicine 03/09/24 Clothes Drier Assembler Relationship Specialty Start Date End Date Luna Cope MD [address] [place] [address] PCP - General Family Medicine 11/29/14 Benson Pierre MD [address] [place] [address] Radiation Oncology 10/18/23 Glen Iglesias MD [address] [place] [address] Hematology/Oncology 12/04/23 Brii Fernández, ABIEL [address] [place] [address] Specialty Experimental Physicist Hematology/Oncology 12/04/23 Kimberley Renee APRN.MAORI PHYSIOTHERAPIST [address] [place] [address] Dictating Machine Transcriber Family Medicine 03/09/24 Pamela Lay APRN.MAORI PHYSIOTHERAPIST [address] [place] [address] [facility] Family Medicine 03/09/24 Clothes Drier Assembler Relationship Specialty Start Date End Date Luna Cope MD [address] [place] [address] PCP - General Family Medicine 11/29/14 Benson Pierre MD [address] [place] [address] Radiation Oncology 10/18/23 Glen Iglesias MD [address] [place] [address] Hematology/Oncology 12/04/23 Brii Fernández, ABIEL [address] [place] [address] Specialty Experimental Physicist Hematology/Oncology 12/04/23 Kimberley Renee APRN.MAORI PHYSIOTHERAPIST [address] [place] [address] [facility] Family [facility] 03/09/24 Pamela Lay APRN.MAORI PHYSIOTHERAPIST [address] [place] [address] Dictating Machine Transcriber Family Medicine 03/09/24 Clothes Drier Assembler Relationship Specialty Start Date End Date Luna Cope MD [address] [place] [address] PCP - General Family Medicine 11/29/14 Benson Pierre MD [address] [place] [address] Radiation Oncology 10/18/23 Glen Iglesias MD [address] [place] [address] Hematology/Oncology 12/04/23 Brii Fernández RN [address] [place] [address] Specialty Experimental Physicist Hematology/Oncology 12/04/23 Kimberley Renee, DIESEL ENGINE ENGINEER.MAORI PHYSIOTHERAPIST [address] [place] [address] Dictating Machine Transcriber Family Medicine 03/09/24 Pamela Lay DIESEL ENGINE ENGINEER.MAORI PHYSIOTHERAPIST [address] [place] [address] Dictating Machine Transcriber Family Medicine 03/09/24 Clothes Drier Assembler Relationship Specialty Start Date End Date Luna Cope MD [address] [place] [address] PCP - General Family Medicine 11/29/14 Benson Pierre MD [address] [place] [address] Radiation Oncology 10/18/23 Glen Iglesias MD [address] [place] [address] Hematology/Oncology 12/04/23 Brii Fernández, ABIEL [address] [place] [address] Specialty Experimental Physicist Hematology/Oncology 12/04/23 Kimberley Renee APRN.MAORI PHYSIOTHERAPIST [address] [place] [address] Dictating Machine Transcriber Family Medicine 03/09/24 Pamela Lay APRN.MAORI PHYSIOTHERAPIST [address] [place] [address] Dictating Machine Transcriber Family Medicine 03/09/24 Clothes Drier Assembler Relationship Specialty Start Date End Date Luna Cope MD [address] [place] [address] PCP - General Family Medicine 11/29/14 Benson Pierre MD [address] [place] [address] Radiation Oncology 10/18/23 Glen Iglesias MD [address] [place] [address] Hematology/Oncology 12/04/23 Brii Fernández, ABIEL [address] [place] [address] Specialty Experimental Physicist Hematology/Oncology 12/04/23 Kimberley Renee, DIESEL ENGINE ENGINEER.MAORI PHYSIOTHERAPIST [address] [place] [address] Dictating Machine Transcriber Family Medicine 03/09/24 Pamela Lay DIESEL ENGINE ENGINEER.MAORI PHYSIOTHERAPIST [address] [place] [address] Dictating Machine Transcriber Family Medicine 03/09/24 Clothes Drier Assembler Relationship Specialty Start Date End Date Luna Cope MD [address] [place] [address] PCP - General Family Medicine 11/29/14 Benson Pierre MD [address] [place] [address] Radiation Oncology 10/18/23 Glen Iglesias MD [address] [place] [address] Hematology/Oncology 12/04/23 Brii Fernández, ABIEL [address] [place] [address] Specialty Experimental Physicist Hematology/Oncology 12/04/23 Kimberley Renee, ELIA.MAORI PHYSIOTHERAPIST [address] [place] [address] Dictating Machine Transcriber Family Medicine 03/09/24 Pamela Lay, DIESEL ENGINE ENGINEER.MAORI PHYSIOTHERAPIST [address] [place] [address] Dictating Machine Transcriber Family Medicine 03/09/24 Clothes Drier Assembler Relationship Specialty Start Date End Date Luna Cope MD [address] [place] [address] PCP - General Family Medicine 11/29/14 Benson Pierre MD [address] [place] [address] Radiation Oncology 10/18/23 Glen Iglesias MD [address] [place] [address] Hematology/Oncology 12/04/23 Brii Fernández RN [address] [place] [address] Specialty Experimental Physicist Hematology/Oncology 12/04/23 Kimberley Renee APRN.MAORI PHYSIOTHERAPIST [address] [place] [address] Dictating Machine Transcriber Family Medicine 03/09/24 Pamela Lay APRN.MAORI PHYSIOTHERAPIST [address] [place] [address] Dictating Machine Transcriber Family Medicine 03/09/24 Clothes Drier Assembler Relationship Specialty Start Date End Date Luna Cope MD [address] [place] [address] PCP - General Family Medicine 11/29/14 Benson Pierre MD [address] [place] [address] Radiation Oncology 10/18/23 Glen Iglesias MD [address] [place] [address] Hematology/Oncology 12/04/23 Brii Fernández, ABIEL [address] [place] [address] Specialty Experimental Physicist Hematology/Oncology 12/04/23 Kimberley Renee APRN.MAORI PHYSIOTHERAPIST [address] [place] [address] Dictating Machine Transcriber [facility] 03/09/24 Pmaela Lay APRN.MAORI PHYSIOTHERAPIST [address] [place] [address] [facility] 03/09/24 Clothes Drier Assembler Relationship Specialty Start Date End Date Luna Cope MD [address] [place] [address] PCP - General Family Medicine 11/29/14 Benson Pierre MD [address] [place] [address] Radiation Oncology 10/18/23 Glen Iglesias MD [address] [place] [address] Hematology/Oncology 12/04/23 Brii Fernández, ABIEL [address] [place] [address] Specialty Experimental Physicist Hematology/Oncology 12/04/23 Kimberley Renee APRN.MAORI PHYSIOTHERAPIST [address] [place] [address] [facility] Medicine 03/09/24 Pamela Lay APRN.MAORI PHYSIOTHERAPIST [address] [place] [address] [facility] 03/09/24 Team Status: Active Member Role/Relationship Status Dates Dr. Luna Cope MD Family Provider Active Dr. Luan Cope MD Primary Care Provider Active Team Status: Inactive Member Role/Relationship Status Dates Dr. Luna Cope MD Primary Care Provider Active Start: October 08, 2024 End: October 08, 2024 Dr. Luna Cope MD Referring Provider Active Start: October 08, 2024 End: October 08, 2024 Tahira ARREAGA, PA Attending Provider Active Start: October 08, 2024 End: October 08, 2024 Clothes Drier Assembler Relationship Specialty Start Date End Date Luna Cope MD [address] [place] [address] PCP - General Family Medicine 11/29/14 Benson Pierre MD [address] [place] [address] Radiation Oncology 10/18/23 Glen Iglesias MD [address] [place] [address] Hematology/Oncology 12/04/23 Brii Fernández, ABIEL [address] [place] [address] Specialty Experimental Physicist Hematology/Oncology 12/04/23 Kimberley Renee APRN.MAORI PHYSIOTHERAPIST [address] [place] [address] Dictating Machine Transcriber Family Medicine 03/09/24 Pamela Lay APRN.MAORI PHYSIOTHERAPIST [address] [place] [address] Dictating Machine Transcriber Family Medicine 03/09/24 Team Status: Active Member Role/Relationship Status Dates Dr. Luna Cope MD Primary Care Provider Active Team Status: Inactive Member Role/Relationship Status Dates Dr. Luna Cope MD Primary Care Provider Active Start: October 08, 2024 End: October 08, 2024 Tahira ARREAGA, PA Attending Provider Active Start: October 08, 2024 End: October 08, 2024 Tahira ARREAGA, PA Referring Provider Active Start: October 08, 2024 End: October 08, 2024 Reason for Visit (unrecogniz ed section and content) Reason Comments Radiology US Specialty Diagnoses / Procedures Referred By Immanuel t Referred To Contact US IMAGING Diagnoses Soft tissue mass History of breast cancer Procedures US SOFT TISSUE ABDOMEN US ABDOMINAL REAL TIME W/IMAGE LIMITED Luna Cope MD [address] [place] [address] Phone: tel: fax: [place] [address] Referral ID Status Reason Start Date Expiration Date V isits Requested Visits Authorized [id number] Closed Auto-Generate d Referral 07/01/2024 07/31/2025 1 1 Reason Comments 6 Month Exam Reason Comments Blood Pressure Check Reason Onset Date Comments Refill Request 10/25/2021 Reason Comments 6 Month Exam Depression Reason Onset Date Comments [facility] 04/20/2022 Enrollment Reason Comments Information Reason Onset Date Comments [facility] 04/26/2022 Patient question Reason Onset Date Comments Refill Request 05/04/2022 Reason Onset Date Comments Community Monitoring Outreach 05/24/2022 CD M Telephonic Outreach Reason Onset Date Comments Community Monitoring Outreach 06/21/2022 CD M Telephonic Outreach Reason Onset Date Comments Community Monitoring Outreach 08/15/2022 CD M Telephonic Outreach Reason Comments Finger Pain Reason Onset Date Comments Community Monitoring Outreach 10/04/2022 CD M Telephonic Outreach Reason Comments Insect Bite Bug bites 3 differen t locations x 2 days Reason Comments mamm results Reason Onset Date Comments Community Monitoring Outreach 01/01/2023 CD M Telephonic Outreach Reason Onset Date Comments Community Monitoring Outreach 01/22/2023 CD M Telephonic Outreach Reason Onset Date Comments Community Monitoring Outreach 02/12/2023 CD M Telephonic Outreach Reason Comments Recheck Reason Onset Date Comments Community Monitoring Outreach 03/05/2023 CD M Telephonic Outreach Reason Comments New Pain Specialty Diagnoses / Procedures Referred By Immanuel t Referred To Contact Orthopedics Diagnoses Pain of right hand Procedures CONSULT TO ORTHOPAEDICS OFFICE/OUTPATIENT NEW HIGH MDM 60-74 MINUTES Luna Cope MD [address] [place] [address] Referral ID Status Reason Start Date Expiration Date V isits Requested Visits Authorized [id number] Closed PCP Requested Referral 02/13/2023 02/13/2024 1 1 Reason Comments Appointment Cancel surgery Reason Onset Date Comments Community Monitoring Outreach 05/15/2023 CD M Telephonic Outreach Reason Comments Abdominal Pain Reason Comments Radiology CT Specialty Diagnoses / Procedures Referred By Immanuel t Referred To Contact CT IMAGING Diagnoses LLQ pain Left lower quadrant abdominal pain Procedures CT ABD/PEL W IVCON CT ABD & PELVIS W/CONTRAST Luna Cope MD [address] [place] [address] [place] [address] Referral ID Status Reason Start Date Expiration Date V isits Requested Visits Authorized [id number] Closed Auto-Generate d Referral 05/21/2023 06/19/2024 1 1 Reason Comments Results Reason Onset Date Comments Community Monitoring Outreach 06/07/2023 CD M Telephonic Outreach Reason Onset Date Comments Community Monitoring Outreach 06/10/2023 M Telephonic Outreach Reason Comments New Patient Specialty Diagnoses / Procedures Referred By Immanuel t Referred To Contact General Surgery Diagnoses LLQ pain History of partial colectomy Procedures CONSULT TO GENERAL SURGERY OFFICE/OUTPATIENT NEW HIGH MDM 60 MINUTES Luna Cope MD [address] [place] [address] Referral ID Status Reason Start Date Expiration Date V isits Requested Visits Authorized [id number] Closed PCP Requested Referral 05/23/2023 05/22/2024 1 1 Reason Onset Date Comments Community Monitoring Outreach 07/04/2023 CD M Telephonic Outreach Reason Comments Appointment Reason Onset Date Comments Community Monitoring Outreach 07/23/2023 CD M Telephonic Outreach Reason Comments 6 Month Exam Reason Onset Date Comments Community Monitoring Outreach 08/20/2023 CD M Telephonic Outreach Reason Onset Date Comments Community Monitoring Outreach 08/21/2023 M Telephonic Outreach Reason Comments Results/ order's needed Specialty Diagnoses / Procedures Referred By Cotyac t Referred To Contact BR [facility]AGING Diagnoses Inconclusive mammogram Procedures US BREAST LTD LEFT US BREAST UNI REAL TIME WITH IMAGE LIMITED Luna Cope MD [address] [place] [address] [facility] [address] [place] [address] Referral ID Status Reason Start Date Expiration Date V isits Requested Visits Authorized [id number] Closed Auto-Generate d Referral 08/23/2023 09/21/2024 1 1 Reason Comments ER F/U Reason Comments Urinary Problem Frequency and burnin g Reason Onset Date Comments Refill Request 09/06/2023 Reason Onset Date Comments Community Monitoring Outreach 09/16/2023 CD M Telephonic Outreach Reason Comments Consult Abnormal mammogram a nd ultrasound left breast. Reason Comments Procedure Ultrasound Guided Chaney nd Held Mammotome Biopsy left breast Reason Onset Date Comments Community Monitoring Outreach 10/09/2023 CD M Telephonic Outreach Reason Comments Follow Up 09/25/23 breast biop sy follow up Reason Comments New Patient Left breast cancer Reason Comments breast localization request Reason Comments Consult Consult to hematolog y/oncology Specialty Diagnoses / Procedures Referred By Immanuel Referred To Contact Diagnoses Malignant neoplasm of lower-inner quadrant of left breast in female, estrogen receptor negative (HCC) 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) Procedures CONSULT TO HEMATOLOGY/ONCOLOGY OFFICE/OUTPATIENT NEW HIGH MDM [address] [place] [address] [place] [id number] Referral ID Status Reason Start Date Expiration Date V isits Requested Visits Authorized [id number] Closed PCP Requested Referral 10/13/2023 01/11/2024 1 1 Reason Comments Consult Reason Onset Date Comments Community Monitoring Outreach 10/30/2023 CD M Telephonic Outreach Reason Comments Patient Education LEFT norma partial ma stectomy with SN bx Reason Comments Breast Biopsy-1 Specialty Diagnoses / Procedures Referred By Cox Bransonmanuel Referred To Contact MR IMAGING Diagnoses Abnormal finding on breast imaging Procedures MRI BREAST BX WO/W IVCON RIGHT BX BREAST W/DEVICE 1ST LESION MAGNETIC RES GUID Yolette Licona MD [address] [facility] [address] [place] [address] [place] [address] Referral ID Status Reason Start Date Expiration Date V isits Requested Visits Authorized [id number] Closed Auto-Generate d Referral 10/21/2023 11/19/2024 1 1 Reason Comments MRI Appointment Specialty Diagnoses / Procedures Referred By Cox Bransonmanuel Referred To Contact MR IMAGING Diagnoses Abnormal finding on breast imaging Procedures MRI BREAST BX WO/W IVCON LEFT BX BREAST W/DEVICE 1ST LESION MAGNETIC RES GUID Yolette Licona MD [address] [place] [id number] Mr Imaging [facility] Referral ID Status Reason Start Date Expiration Date V isits Requested Visits Authorized [id number] Closed Auto-Generate d Referral 10/21/2023 11/19/2024 1 1 Reason Comments Established Patient Reason Comments Education Of Patient/family Reason Comments Post Op Follow Up Reason Comments Post Op Reason Comments Care Coordination Introduction Reason Comments AVS 11/27/23, CHEMO START Reason Comments Follow Up Reason Onset Date Comments Community Monitoring Outreach 12/03/2023 CD M Telephonic Outreach - Routine Reason Comments Benefits Investigation Reason Comments Radiology MRI Specialty Diagnoses / Procedures Referred By Contac t Referred To Contact MR IMAGING Diagnoses Malignant neoplasm of lower-inner quadrant of left breast in female, estrogen receptor negative (HCC) Procedures MRI BREAST WO/W IVCON BILATERAL MRI BREAST WITHOUT&WITH CONTRAST W/[place] [address] [place] [address] Mr Imaging [place] [address] Referral ID Status Reason Start Date Expiration Date V isits Requested Visits Authorized [id number] Closed Auto-Generate d Referral 10/09/2023 11/07/2024 1 1 Reason Comments Chemotherapy Treatment Specialty Diagnoses / Procedures Referred By Contac t Referred To Contact Diagnoses Malignant neoplasm of lower-inner quadrant of left breast in female, estrogen receptor negative (HCC) [place] [address] [place] [address] [facility] [address] [place] [address] Referral ID Status Reason Start Date Expiration Date V isits Requested Visits Authorized [id number] Authorized 11/27/2023 02/25/2024 99 99 Reason Comments Care Coordination CYCLE 1/DAY 1 POST T REATMENT CALL Reason Comments Care Coordination Toxicity Check Reason Comments PT Eval Specialty Diagnoses / Procedures Referred By Contac t Referred To Contact [facility] Diagnoses 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) Procedures CONSULT TO BREAST REHAB PROGRAM THERAPEUTIC EXERCISES RE, EA 15 MIN. THERAPEUT ACTVITY DIRECT PT CONTACT EACH 15 [address] Ramsey PA-C [address] [place] [address] [facility] [place] [address] [place] [address] Referral ID Status Reason Start Date Expiration Date Visits Requested Visits Authorized [id number] Authorized PCP Requested Referral Auto-Generate d Referral 11/27/2023 11/26/2024 99 99 Reason Comments Experimental Physicist - ED Follow Up Reason Comments temperature check on chemo thermometer s are not reading right-100.4 on thurs night but at ED everything was normal Reason Comments Care Coordination Symptoms Reason Comments Care Coordination Hand redness Specialty Diagnoses / Procedures Referred By Contmanuel t Referred To Contact Diagnoses Malignant neoplasm of lower-inner quadrant of left breast in female, estrogen receptor negative (HCC) [place] [address] [place] [address] [facility] [address] [place] [address] Reason Comments Patient Update Reason Comments Future Appointment Reason Comments Breast Cancer Reason Onset Date Comments Simulation Request Form 03/10/2024 Reason Comments Radiotherapy On-treatment Visit Reason Comments Patient Education Reason Comments Recheck Reason Onset Date Comments Refill Request 05/12/2024 Reason Comments Reminder Call Appt reminder call, spoke with pt regarding appt time and location Reason Comments Established Patient SCP Reason Comments Derm Problem Reason Comments Mass Reason Comments Medicare Wellness Exam Reason Comments Anxiety Insomnia Reason Comments Low Back Pain Has been having for 4 weeks. Varies intensity and location. Can be all the way across or in right flank. Notices after lifting 5 gallon gas can to fill mower. Sometimes makes her slow to stand and straighten. No pain down her legs. Goals (unrecognized section and content) Goals may be documented in a n alternate sectionGoals may be documented in an alternate sectionGoals may be documented in an alternate sectionGoals may be documented in an alternate section Inactive Administered Medications - up to 3 most recent administrations Administered Medications (un recognized section and content) Medication Order MAR Action Action Date Dose Rate Site diphenhydrAMINE 12.5-50 mg injection (BENADRYL) 12.5-50 mg, INTRAVENOUS, DIRECTED, Starting on Gina 07/11/23 at 0830, Until Gina 07/11/23 at 1229, DOSING DIRECTED BY PHYSICIAN FOR PROCEDURAL SEDATION ONLY, Intraprocedure Given 07/11/2023 8:01 AM EDT 50 mg fentaNYL 50 mcg/mL 25-100 mcg injection (SUBLIMAZE) 25-100 mcg, INTRAVENOUS, DIRECTED, Starting on Gina 07/11/23 at 0830, Until Gina 07/11/23 at 1229, DOSING DIRECTED BY PHYSICIAN FOR PROCEDURAL SEDATION ONLY, Intraprocedure Given 07/11/2023 7:59 AM EDT 50 mcg lactated ringers iv infusion 30 mL/hr, INTRAVENOUS, CONTINUOUS, Starting on Gina 07/11/23 at 0730, Until Gina 07/11/23 at 0822, Preprocedure New Bag/Syringe/Bottle 07/11/2023 7:35 AM EDT 30 mL/hr 30 mL/hr midazolam (PF) 1-5 mg injection (VERSED) 1-5 mg, INTRAVENOUS, DIRECTED, Starting on Gina 07/11/23 at 0830, Until Gnia 07/11/23 at 1229, DOSING DIRECTED BY PHYSICIAN FOR PROCEDURAL SEDATION ONLY, Intraprocedure Given 07/11/2023 8:03 AM EDT 1 mg Given 07/11/2023 7:59 AM EDT 3 mg ondansetron (PF) 4 mg injection (ZOFRAN) 4 mg, INTRAVENOUS, DIRECTED, Starting on Gina 07/11/23 at 0830, Until Gina 07/11/23 at 1229, Dosing as directed for intraprocedural use only, Intraprocedure Given 07/11/2023 8:14 AM EDT 4 mg INFORMATION SOURCE (unrecogn ized section and content) DATE CREATED AUTHOR 06/04/2024 [facility] DATE CREATED AUTHOR AUTHOR'S ORGANIZ ATION 10/08/2024 [facility] DATE CREATED AUTHOR AUTHOR'S ORGANIZ ATION 10/16/2024 [facility] FOR RECORDS PERTAINING TO PATIENTS WHO ARE OR HAVE BEEN ENROLLED IN A CHEMICAL DEPENDENCY/SUBSTANCEABUSE PROGRAM, SOME INFORMATION MAY BE OMITTED. This clinical summary was aggregated from multiple sources. Caution should be exercised in using it in the provision of clinical care. This summary normalizes information from multiple sources, and as a consequence, information in this document may materially change the coding, format and clinical context of patient data. In addition, data may be omitted in some cases. CLINICAL DECISIONS SHOULD BE BASED ON THE PRIMARY CLINICAL RECORDS. [facility] [employer] [facility]. provides no warranty or guarantee of the accuracy or completeness of information in this document.
--- NOTE | 2024-10-19 17:51 | STRESSREP_ITS ---
Stress Test Report Exercise myocardial perfusion stress test. 74-year-old lady with a history of chest pain Stress protocol: Resting EKG demonstrates sinus bradycardia with a rate of 55 bpm resting blood pressure is 126/70 mmHg. The patient exercised according to the regular Wang protocol for a total duration of 7 minutes attaining a maximum heart rate of 131 bpm which was 88% of maximum predicted heart rate; the maximum workload was 10.1 metabolic equivalents. At rest there were no ST or T wave changes noted to suggest ischemia and at peak exercise upsloping ST changes only were noted which did not meet the criteria for ischemia. No clinical angina was noted the test was terminated due to the target heart rate being achieved/fatigue. The peak b lood pressure was 180/85 mmHg. Rate-pressure product was 21,600. Myocardial perfusion protocol. 11.8 mCi of technetium 99m sestamibi was injected at rest. The patient exercised according to regular Wang protocol for total duration of 7 minutes and at peak exercise 33.3 mCi of technetium 99m sestamibi was injected stress images were obtained stress and rest images were reconstructed in comparing the short axis vertical long and horizontal long axis. Gated images were also obtained. Perfusion SPECT analysis: Review of the stress images demonstrate normal uptake of tracer noted in all areas of the myocardium. The resting images similarly demonstrate normal uptake of tracer noted in all areas of the myocardium. No areas of reversibility are noted to suggest ischemia no previous infarct was noted. Gated SPECT analysis: The gated ejection fraction is over 80%. Conclusion: Normal exercise myocardial perfusion stress test at a high workload Preserved ejection fraction.
== END | disposition home or self-care (01) ==
LOC: CVS 06:07
PROVIDERS: PCP Family Medicine; Referring Provider Physician Assistant Medical; Visit Provider Physician Assistant Medical
DX: R07.9 Chest pain, unspecified (principal)
CPT/HCPCS: 78452; 93017; A9500; A4216